=== PATIENT | male | born 1950 | race Caucasian/White ===

== ENCOUNTER → 2016-04-23 | Outpatient (CLI) | payer OTHER ==
[~2016-04-23] MED LIST: ACET-1256 PO; ACET325T96 PO; ADVIN50/60 INH; ALBUAER2 INH; ALLO100T PO; ALUMSUS2 PEG; ALUMSUS2 PO; AMLO-114 PO; ARTISOL8 OP; ASCO1CAP3 PO; ASCO500C43; ASPI81TA28 PO; ATOR-54 PO; CARV6.252 PO; CEFE1INJ2 IV; FENT50DI19 TD; FERR325T5 PO; FRS/40 PO; GABA-112 PO; GABA-113 PO; IPRA1AER2 INH; ISOS60TA2 PO; LORA-741 PO; LOSA1TAB PO; MOML PO; MULT-116; MULTTAB PO; OXYC10SO; OXYC10SO PO; POTA10CA28 PO; PRLSR20 PO; PRNJ PO; RANI150T3 PO; RBTUDL5 PO; RIVA1TAB4 PO; ROBITUSSIN DM PO; SERT-234 PO; SODIENE PR; SULF800T23 PO; TOPI100T20 PO; VITACAP26; [UNRECOGNIZED DRUG - CODE] PO; [UNRECOGNIZED DRUG - CODE] PO; dulcolax supp RE
[2016-04-23 08:53] LABS: BLOOD UREA NITROGEN 17 mg/dl (7-18)
== END ==
LOC: C.LABCC 08:28
PROVIDERS: ATTEND Internal Medicine
DX: L08.9 Local infection of the skin and subcutaneous tissue, unspecified (principal)

== ENCOUNTER → 2016-04-30 | Outpatient (CLI) | payer OTHER ==
[2016-04-30 11:08] LABS: BLOOD UREA NITROGEN 16 mg/dl (7-18)
== END ==
LOC: C.LABCC 10:20
PROVIDERS: ATTEND Internal Medicine Interventional Cardiology
DX: Z01.818 Encounter for other preprocedural examination (principal)

== ENCOUNTER → 2016-05-08 | Outpatient (CLI) | payer OTHER ==
[~2016-05-08] MED LIST changes: +OPTIRAY 320 IV PRN
--- NOTE | 2016-05-08 11:15 | DIAGNOSTIC IMAGING REPORT ---
CT ANGIOGRAM OF THE ABDOMEN AND PELVIS WITH BILATERAL LOWER EXTREMITY RUNOFF CLINICAL HISTORY: Right lower extremity arterial occlusion. COMPARISON STUDY: Abdominal CT dated 08/12/2009. TECHNIQUE: Following the IV administration of 119 cc of Optiray 320, CT angiogram of the abdomen and pelvis with bilateral lower externally runoff was performed from the lung bases to the feet. Images are reviewed in the axial, sagittal, and coronal planes. 3-D MIPS images are created and assessed. IV contrast was administered without complication. CT DOSE: 2760.74 mGy.cm FINDINGS: Lower chest: The patient is status post midline sternotomy. The heart is enlarged and without pericardial effusion. The coronary arteries are densely calcified. Pacemaker leads are noted. Emphysema is noted. There is elevation of left hemidiaphragm with associated atelectasis. No airspace consolidation or pleural effusion is seen. Liver: The contrast-enhanced liver is normal in size, contour, and attenuation. An 11 mm cyst is incidentally noted in the left lobe. There is no intrahepatic or ductal dilatation. The hepatic veins and portal veins are patent. Gallbladder: Unremarkable. Spleen: Normal in size and attenuation noting heterogeneous arterial phase enhancement. Pancreas: The pancreas is atrophic and grossly unremarkable. A coarse calcification is incidentally noted in the uncinate process. Adrenal glands: Unremarkable. Kidneys: The contrast enhanced kidneys demonstrate cortical atrophy and are without hydronephrosis. The kidneys enhance symmetrically. Foci of cortical scarring are present in both kidneys. Abdominal aorta and iliac arteries: There is advanced atherosclerotic calcification with extensive soft plaque seen throughout the abdominal aorta and iliac arteries. The abdominal aorta is normal in caliber and patent. No aortic dissection is seen. There is mild aneurysmal dilatation of the left common iliac artery which measures up to 2.4 cm. There is a left internal iliac artery aneurysm which measures up to 1.8 cm. There is thrombosis of the distal left internal iliac artery. There is mild aneurysmal dilatation of the right common iliac artery which measures up to 1.7 cm. The common iliac arteries and external iliac arteries are patent. Focal dissection is questioned within the left external iliac artery on axial image #367. Major branches of the abdominal aorta: The celiac trunk, superior mesenteric, and inferior mesenteric arteries are widely patent. Hepatic arterial anatomy is conventional. The splenic artery is patent. There are single bilateral renal arteries which appear patent. Right lower extremity runoff: The right common femoral artery is patent, as is the right profunda femoris artery. There is complete thrombosis of the right superficial femoral artery beginning at the common femoral artery bifurcation. A stent in the distal right superficial femoral artery is thrombosed. There is reconstitution identified in the very distal aspect of the superficial femoral artery seen on image #814. The popliteal artery is patent, with focal high-grade stenosis with only trace/thready flow seen in the popliteal artery on image #824. The tibioperoneal trunk is patent. The arteries of the calf are diminutive and show advanced atherosclerotic irregularity. The peroneal artery is patent to the ankle. There is flow throughout the majority of the posterior tibial artery which is occluded just above the ankle, best seen on axial image #1166. There is thready flow within the proximal anterior tibial artery to level of the mid calf. The majority of the mid to distal anterior tibial artery is occluded, with reconstitution just above the ankle joint as seen on image #1157. There is occlusion of the dorsalis pedis artery, best seen on image #[id number] Left lower extremity runoff: There is advanced atherosclerotic plaque and calcification identified in the arteries of the left lower extremity. The left common femoral artery is patent, as is the left profunda femoris artery. There is complete thrombosis of the left superficial femoral artery originating at the common femoral artery bifurcation. There is a short segment reconstitution in the distal superficial femoral artery above the knee extending 4.5 cm, best seen on axial image #794. There is thrombosis of the left popliteal artery. Trace flow is seen within the tibioperoneal trunk within the diminutive anterior and posterior tibial arteries in the upper calf. The peroneal artery is occluded. Bowel: The small bowel and colon are normal in course and caliber. There is moderate colonic fecal retention. The appendix is well-visualized and normal. Peritoneum: There is no intraperitoneal free air or abdominal ascites. Lymphadenopathy: None. Pelvic viscera: The prostate gland is surgically absent. The bladder wall appears thickened and trabeculated, likely representing the sequelae of chronic outlet obstruction. Small bladder diverticula are observed. Numerous surgical clips are present in the pelvis. There is a small fat-containing left inguinal hernia. Skeletal structures: The skeletal structures are osteopenic. There is moderate lumbosacral spondylosis and scoliosis. There is evidence of previous laminectomy in the lower lumbar spine. Advanced arthritic change is present in the hips. There are healed bilateral pubic ring fractures. No lytic or blastic bony lesions are seen. There is evidence of below-knee amputation in the left leg. Lower extremity soft tissues: There has been [id number] amputation of left lower extremity. There is diffuse soft tissue edema with dermal thickening seen throughout the right lower extremity below the knee as well in the distal left thigh and remaining left upper calf. There is atrophy of the lower extremity muscular bilaterally, left greater than right. IMPRESSION: 1. Cardiomegaly and emphysema. 2. Advanced atherosclerotic disease is identified and there is been a below-knee amputation of the left leg. 3. There are small aneurysms of the common iliac arteries bilaterally as well as the left internal iliac artery. 4. Suspect focal dissection within the left external iliac artery. 5. There is complete thrombosis throughout the majority of the left superficial femoral artery with reconstitution distally. There is also thrombosis of the left popliteal artery. See above discussion for detailed findings. 6. There is complete thrombosis throughout the majority of the right superficial femoral artery and a distal right superficial femoral artery stent. 7. There is reconstitution in the distal right superficial femoral artery/popliteal artery. Focal high-grade stenosis with thready flow is seen within the right popliteal artery. See above for details. 8. There is thrombosis of the distal right posterior tibial artery above the ankle. 9. There is a long segment of thrombosis throughout the mid to distal anterior tibial artery with reconstitution above the ankle. There is also thrombosis of the right results. Surgery. 10. Subcutaneous soft tissue edema and dermal thickening is present throughout both legs. Clinical correlation will be required. 11. The prostate gland is surgically absent. The appearance of the bladder suggests the sequelae of chronic outlet obstruction. Clinical correlation will be required. 12. Additional changes as above. Electronically signed by: Boris Vidales M.D. 05/08/2016 11:14 AM Dictated Date/Time: 05/08/2016 10:51 AM
== END ==
LOC: C.CTS 09:28
PROVIDERS: ATTEND Internal Medicine Interventional Cardiology
DX: I74.3 Embolism and thrombosis of arteries of the lower extremities (principal); Z89.512 Acquired absence of left leg below knee; I51.7 Cardiomegaly; J43.9 Emphysema, unspecified

== ENCOUNTER → 2016-05-18 | Outpatient (CLI) | payer OTHER ==
[~2016-05-18] MED LIST changes: -CEFE1INJ2 IV; -OPTIRAY 320 IV PRN
[2016-05-18 09:41] LABS: BLOOD UREA NITROGEN 16 mg/dl (7-18); BUN/CREATININE RATIO 11.1 (10-20); CALCIUM 8.5 mg/dl (8.5-10.1); CARBON DIOXIDE 26 mmol/L (21-32); CHLORIDE 109 mmol/L (98-107); GLUCOSE 96 mg/dl (70-99); POTASSIUM 3.8 mmol/L (3.5-5.1); SODIUM 144 mmol/L (136-145)
== END ==
LOC: C.LABCC 09:04
PROVIDERS: ATTEND Internal Medicine
DX: I50.9 Heart failure, unspecified (principal); R05 Cough

== ENCOUNTER → 2016-05-27 | Outpatient (CLI) | payer OTHER ==
[2016-05-27 08:53] LABS: URINE APPEARANCE CLEAR (CLEAR); URINE COLOR DK YELLOW; URINE NITRITE NEG (NEG); URINE SPECIFIC GRAVITY 1.024 (1.000-1.030); UROBILINOGEN POS (NEG)
[2016-05-27 08:55] LABS: MANUAL MICROSCOPIC REQUIRED? NO; REVIEW REQ? NO
[2016-05-27 08:57] LABS: URINE BILIRUBIN NEG (NEG)
== END ==
LOC: C.LABCC 08:02
PROVIDERS: ATTEND Internal Medicine
DX: R53.83 Other fatigue (principal)

== ENCOUNTER → 2016-06-22 | Outpatient (CLI) | payer OTHER ==
[2016-06-22 10:39] LABS: HEMATOCRIT 37.4 % (42-52); MEAN CELL VOLUME 102.2 fL (80-100); MEAN CORPUSCULAR HEMOGLOBIN 32.8 pg (25-34); MEAN CORPUSCULAR HGB CONC 32.1 g/dl (32-36); MEAN PLATELET VOLUME 9.7 fL (7.4-10.4); PLATELET COUNT 180 K/uL (130-400); RED BLOOD COUNT 3.66 M/uL (4.7-6.1); WHITE BLOOD COUNT 7.29 K/uL (4.8-10.8)
[2016-06-22 10:47] LABS: FERRITIN 216.6 ng/ml (8.0-388.0)
== END ==
LOC: C.LABCC 08:56
PROVIDERS: ATTEND Internal Medicine
DX: D64.9 Anemia, unspecified (principal); Z79.899 Other long term (current) drug therapy

== ENCOUNTER 2016-07-24 16:23 | Emergency (ER) | payer OTHER ==
[~2016-07-24] VITALS: Ht 193 cm; Wt 120.9 kg
[~2016-07-24 16:23] MED LIST changes: -ACET-1256 PO; -ALUMSUS2 PO; -ASCO1CAP3 PO; -CEFAZOLIN 1000MG/55 ML D5W 55 ML IV SCH; -CEFAZOLIN 1000MG/55 ML D5W IV SCH; -CEFAZOLIN 3000 MG/65 ML D5W IV SCH; -CLC/300 PO; -CRG3125 PO; -DRGTP50 TD; -FENTANYL CITRATE INJ 50 MCG/1 ML 2 ML VIAL IV ONE; -FENTANYL CITRATE INJ 50 MCG/1 ML 2 ML VIAL ONE; -GABA-113 PO; -HEPARIN SOD (PORCINE) 1000 UNIT/ML 10 ML VIAL ONE; -IMIP1INJ5 IV; -IMIP250I IV; -IODIXANOL (VISIPAQUE) 270 MG/ML 150ML FLUSH ONE; -LIDOCAINE HCL 1% 20 ML VIAL SQ ONE; -MIDAZOLAM HCL 1 MG/ML 2ML VIAL IV ONE; -MIDAZOLAM HCL 1 MG/ML 2ML VIAL ONE; -MULT-17 PO; -NSS 1000ML IV SCH; -NURSING VERBAL MED ORDER ONE; -ONDANSETRON INJ 2 MG/ML 2 ML VIAL IV PRN; -OXYCODONE/ACETAMINOPHEN 5-325 TAB PO PRN; -PATIENT'S HEIGHT AND/OR WEIGHT NEEDED SCH; -ROBITUSSIN DM PO; -SIMV40TA2 PO; -SODIUM CHLORIDE 0.9% 1000ML 1,000 ML IV SCH; -SODIUM CHLORIDE 0.9% 1000ML IV SCH; -[UNRECOGNIZED DRUG - CODE] PO; -[UNRECOGNIZED DRUG - CODE] PO
[2016-07-24 16:26] VITALS: TEMP 36.7; Ht 193 cm; Wt 120.9 kg
--- NOTE | 2016-07-24 17:01 | EMERGENCY ROOM VISIT NOTE ---
History Report prepared by Steve: Jasper Wagner Under the Supervision of: Sylvia WirghtO. First contact with patient: 16:44 Chief Complaint: FALL Stated Complaint: FALL History of Present Illness The patient is a 65 year old male who presents to the Emergency Room with complaints of constant lower back pain secondary to a fall that occurred [employer]. He rates his pain a 5/10 in intensity. The patient was discharged from the hospital today after an angiogram procedure. The patient states he was being wheeled out of the ED lobby on his way back to [facility] today when his wheelchair fell backwards and hit the ground. He denies loss of consciousness but states he did hit his head. He also denies headaches, nausea, abdominal pain , or any additional associated symptoms. The patient takes blood thinners as prescribed. Source of History: patient Onset: [employer]OR Position: back (lower) Symptom Intensity: 5/10 Timing: constant Modifying Factors (Relieving): other (None) Associated Symptoms: No LOC, No abdominal pain, No headache, No nausea Review of Systems See above for pertinent positives & negatives. A total of 10 systems reviewed and were otherwise negative. Past Medical & Surgical Medical Problems: (1) Anxiety (2) Atrial fibrillation (3) Atrial flutter (4) Benign hypertension (5) Carcinoma of prostate (6) Chronic congestive heart failure (7) Gastroesophageal reflux disease (8) History of - pulmonary embolus (9) Hyperlipidemia (10) Migraine (11) uti Family History FHx: ischemic heart disease Social History Smoking Status: Former Smoker Alcohol Use: occasionally Drug Use: none Marital Status: Housing Status: lives with significant other Occupation Status: disabled Current/Historical Medications Scheduled Allopurinol (Zyloprim), 100 MG PO DAILY Amlodipine (Norvasc), 10 MG PO DAILY Artificial Tears (Artificial Tears), 1-2 DROPS OP QID Aspirin (Aspirin Ec), 81 MG PO DAILY Atorvastatin (Lipitor), 20 MG PO DAILY Carvedilol (Coreg), 6.25 MG PO BID Fentanyl (Duragesic), 50 MCG TD CQ72HR Ferrous Sulfate (Ferrous Sulfate), 325 MG PO BID Fluticasone Prop/Salmeterol (Advair Diskus 500/50 60 Dose), 1 PUFFS INH BID Furosemide (Lasix), 60 MG PO DAILY Gabapentin (Neurontin), 600 MG PO HS Gabapentin (Neurontin), 200 MG PO DAILY Ipratropium-Albuterol (Combivent Respimat), 1 PUFFS INH QID Isosorbide Mononitrate (Imdur Ext Rel), 60 MG PO QAM Losartan Potassium (Cozaar), 25 MG PO DAILY Potassium Chloride (Micro-K Ext Rel), 20 MEQ PO DAILY Ranitidine Hcl (Zantac), 150 MG PO BID Rivaroxaban (Xarelto), 20 MG PO QPM Rivaroxaban (Xarelto), 1 TAB PO DAILY Sertraline (Zoloft), 200 MG PO DAILY Sodium Phosphate/Biphosphate (Fleet Enema), 1 EA HI DAILY Sulfa/Trimethoprim (Bactrim Ds 800MG/160MG), 1 TAB PO BID Topiramate (Topamax), 100 MG PO BID [dulcolax supp ], RE day three per protoc Scheduled PRN Acetaminophen Tab (Tylenol), 325 MG PO Q6H PRN for Pain Albuterol (Ventolin), 2 PUFFS INH Q2H PRN for SOB/Wheezing Aluminum/Magnesium/Simeth (Maalox Max Susp), 30 ML PEG Q6H PRN for Indigestion Lorazepam (Ativan), 0.25 MG PO BID PRN for Anxiety/Insomnia Magnesium Hydroxide (Milk Of Magnesia), 30 ML PO for Constipation Miscellaneous Medications Ascorbic Acid (Vitamin C 500 mg) Guaifenesin (Robitussin) Multiple Vitamins W/ Minerals (Theragran-M) Oxycodone Oral Soln (Roxicodone Oral Soln), 100 PO Prune Juice (Prune Juice ), 8 OZ PO Allergies Coded Allergies: Neomycin (Verified Allergy, Intermediate, RED, SORE, 07/24/16) Bacitracin (Verified Allergy, Unknown, unknown, 07/24/16) Kiwi (Verified Allergy, Unknown, itchy, 07/24/16) Polymyxin B (Verified Allergy, Unknown, unknown, 07/24/16) Morphine (Verified Adverse Reaction, Intermediate, HALLUCINATION, CONFUSION,AGITATION, 07/24/16) Physical Exam Vital Signs Date Time Temp Pulse Resp B/P Pulse Ox O2 Delivery O2 Flow Rate FiO2 07/24/16 18:53 73 18 138/74 97 Room Air 07/24/16 16:26 36.7 73 18 130/79 96 Room Air Physical Exam GENERAL: alert, well appearing, well nourished, no distress, non-toxic EYE EXAM: normal conjunctiva, PERRL and EOM's grossly intact, vision grossly intact. OROPHARYNX: no exudate, no erythema, lips, buccal mucosa, and tongue normal and mucous membranes are moist NECK: supple, no nuchal rigidity, no adenopathy, non-tender LUNGS: Clear to auscultation. Normal chest wall mechanics HEART: no murmurs, S1 normal and S2 normal ABDOMEN: Dressing over groin consistent with recent procedure, abdomen soft, non -tender, normo-active bowel sounds, no masses, no rebound or guarding. BACK: Back is symmetrical on inspection and there is no deformity, no midline tenderness, no CVA tenderness. SKIN: no rashes and no bruising UPPER EXTREMITIES: Old resolving ecchymotic areas noted to bilateral upper extremities, otherwise normal. LOWER EXTREMITIES: Distal right lower extremity 2+ edema, mild erythema, dressing in place, no obvious drainage, normal pulses. NEURO EXAM: Normal sensorium, no gross weakness. Normal speech, no facial droop. Medical Decision & Procedures ER Provider Diagnostic Interpretation: CT results have been interpreted by the radiologist and reviewed by me. LUMBAR SPINE CT CT DOSE: HISTORY: Pain back pain, trauma TECHNIQUE: Multiaxial CT images of the lumbar spine were performed and reformatted in the sagittal and coronal plane without the use of contrast. COMPARISON: 10/11/2006 FINDINGS: Moderately progressive degenerative change compared to the prior study. No acute compression deformity. Bony mineralization is diminished throughout. Scoliosis is present. IMPRESSION: Degenerative change. Scoliosis. Osteopenia. No acute bony abnormality. Electronically signed by: Shaka Richardson M.D. 07/24/2016 6:02 PM Dictated Date/Time: 07/24/2016 6:[address] DOSE: HISTORY: Trauma trauma, blood thinners TECHNIQUE: Multiaxial CT images of the head were performed without the use of intravenous contrast. Comparison: 06/10/2013 Findings: The paranasal sinuses and mastoid air cells are clear. The calvarium and skull base are intact. The ventricles and sulci are within normal limits. There is no mass, hematoma, midline shift, or acute infarct. Findings of minimal chronic small vessel change and mild age-related atrophy. Impression: No acute intracranial abnormality. Electronically signed by: Shaka Richardson M.D. 07/24/2016 5:57 PM Dictated Date/Time: 07/24/2016 5:[address] DOSE: 3409.97 mGy.cm HISTORY: Pain trauma TECHNIQUE: Multiaxial CT images of the cervical spine were performed and reformatted in the sagittal and coronal plane without the use of contrast. COMPARISON: 07/21/2011 FINDINGS: No fractures. No subluxation. Prevertebral soft tissues and the C1-C2 interval are intact. No pneumothorax. Considerable degenerative and postoperative change throughout the entire cervical region. All findings are similar compared to the prior study. No new or interval finding. No compression deformity. IMPRESSION: No fractures within the cervical spine. Extensive degenerative change as well as findings of old posttraumatic/postoperative change. Electronically signed by: Shaka Richardson M.D. 07/24/2016 5:59 PM Dictated Date/Time: 07/24/2016 5:57 PM Medications Administered Medications (Trade) Dose Ordered Sig/Emily Route Start Time Stop Time Status Last Admin Dose Admin Oxycodone HCl (Roxicodone Immediate Rel Tab) 5 mg NOW STAT PO 07/24/16 18:20 07/24/16 18:21 DC 07/24/16 18:25 5 MG ED Course 1653: The patient was evaluated in room A9. A complete history and physical exam was performed. 180: Ordered Tylenol Tablet 650 mg PO. 1819: Ordered Oxycodone HCL 5 mg PO. 7: I reevaluated the patient. Repeat exam is unchanged. Patient has no new complaints. He denies pain at this time. 1839: Upon reevaluation, the patient is feeling better. I discussed the findings and the treatment plan with the patient. He verbalizes agreement and understanding. He was discharged home. Medical Decision Differential diagnosis: Etiologies such as musculoskeletal, disc herniation, fracture, aortic disease, metastatic disease, cord compression, discitis, infection, renal colic, gastrointestinal, acute exacerbation of chronic back pain, sciatica, cauda equina, as well as others were entertained. Doubt ICH/ SDH. Pt with multiple chronic medical problems. CT's negative. Doubt additional occult traumatic injury despite use of anticoagulation. Repeat exams unchanged. Fall backwards while in wheelchair, not from additional height, no other injury. No LOC. Pt anxious to leave. Discussed sx to watch/return for, risks of injury/bleeding while on anticoagulation and in setting of trauma. Discussed use of meds and continuing recommendations from procedure earlier today. Impression Primary Impression: Fall Additional Impression: Acute exacerbation of chronic low back pain Scribe Attestation The scribe's documentation has been prepared under my direction and personally reviewed by me in its entirety. I confirm that the note above accurately reflects all work, treatment, procedures, and medical decision making performed by me. Departure Information Dispostion Home / Self-Care Referrals [facility] (PCP) Forms HOME CARE DOCUMENTATION FORM, IMPORTANT VISIT INFORMATION Patient Instructions My [facility] Additional Instructions Please continue your regular medicines as prescribed. Please continue the precautions you were given regarding your procedure earlier today. If you have any worsening pain, develop headaches, vomiting, dizziness, vision changes, abdominal pain, bleeding, or you have any other new or concerning symptoms, please return to the emergency room. Problem Qualifiers Primary Impression: Fall Encounter type: initial encounter Qualified Codes: W19.XXXA - Unspecified fall, initial encounter
--- NOTE | 2016-07-24 17:59 | DIAGNOSTIC IMAGING REPORT ---
HEAD CT NONCONTRAST CT DOSE: HISTORY: Trauma trauma, blood thinners TECHNIQUE: Multiaxial CT images of the head were performed without the use of intravenous contrast. Comparison: 06/10/2013 Findings: The paranasal sinuses and mastoid air cells are clear. The calvarium and skull base are intact. The ventricles and sulci are within normal limits. There is no mass, hematoma, midline shift, or acute infarct. Findings of minimal chronic small vessel change and mild age-related atrophy. Impression: No acute intracranial abnormality. Electronically signed by: Shaka Richardson M.D. 07/24/2016 5:57 PM Dictated Date/Time: 07/24/2016 5:56 PM
--- NOTE | 2016-07-24 18:01 | DIAGNOSTIC IMAGING REPORT ---
CERVICAL SPINE CT CT DOSE: 3409.97 mGy.cm HISTORY: Pain trauma TECHNIQUE: Multiaxial CT images of the cervical spine were performed and reformatted in the sagittal and coronal plane without the use of contrast. COMPARISON: 07/21/2011 FINDINGS: No fractures. No subluxation. Prevertebral soft tissues and the C1-C2 interval are intact. No pneumothorax. Considerable degenerative and postoperative change throughout the entire cervical region. All findings are similar compared to the prior study. No new or interval finding. No compression deformity. IMPRESSION: No fractures within the cervical spine. Extensive degenerative change as well as findings of old posttraumatic/postoperative change. Electronically signed by: Shaka Richardson M.D. 07/24/2016 5:59 PM Dictated Date/Time: 07/24/2016 5:57 PM
[2016-07-24] MEDS ORDERED: ACETAMINOPHEN 325 MG TAB PO STA (18:02)
--- NOTE | 2016-07-24 18:04 | DIAGNOSTIC IMAGING REPORT ---
LUMBAR SPINE CT CT DOSE: HISTORY: Pain back pain, trauma TECHNIQUE: Multiaxial CT images of the lumbar spine were performed and reformatted in the sagittal and coronal plane without the use of contrast. COMPARISON: 10/11/2006 FINDINGS: Moderately progressive degenerative change compared to the prior study. No acute compression deformity. Bony mineralization is diminished throughout. Scoliosis is present. IMPRESSION: Degenerative change. Scoliosis. Osteopenia. No acute bony abnormality. Electronically signed by: Shaka Richardson M.D. 07/24/2016 6:02 PM Dictated Date/Time: 07/24/2016 6:00 PM
[2016-07-24] MEDS ORDERED: OXYCODONE HCL SOLN 5 MG/5 ML UDC PO STA (18:15)
[2016-07-24] MEDS ORDERED: OXYCODONE HCL IR 5 MG TAB (IMMEDIATE RELEASE) PO STA (18:20)
[2016-07-24 18:53] VITALS: BP 138/74; PULSE 73; O2SAT 97
[2016-11-13] MEDS ORDERED: ACET-1256 PO (16:00)
[2016-11-13] MEDS ORDERED: ROBITUSSIN DM PO (16:00)
[2016-11-13] MEDS ORDERED: IPRA1AER2 INH (16:05)
[2016-11-13] MEDS ORDERED: [UNRECOGNIZED DRUG - CODE] PO (16:05)
[2016-11-13] MEDS ORDERED: GABA-113 PO (16:05)
[2016-11-13] MEDS ORDERED: ALUMSUS2 PO (16:11)
[2016-11-13] MEDS ORDERED: ASCO1CAP3 PO (16:11)
[2016-11-13] MEDS ORDERED: [UNRECOGNIZED DRUG - CODE] PO (16:11)
[2017-01-20] MEDS ORDERED: IMIP250I IV (14:14)
[2017-01-25] MEDS ORDERED: IMIP1INJ5 IV (07:45)
[2017-02-17] MEDS ORDERED: CLC/300 PO (13:35)
== END 2016-07-24 19:36 | disposition home or self-care (01) ==
LOC: EDBD 16:23 → C.EDA 16:24
DX: M54.5 Low back pain (principal); G89.29 Other chronic pain; W19.XXXA Unspecified fall, initial encounter; Y92.89 Other specified places as the place of occurrence of the external cause; F41.9 Anxiety disorder, unspecified; I48.91 Unspecified atrial fibrillation; I10 Essential (primary) hypertension; Z85.46 Personal history of malignant neoplasm of prostate; I50.9 Heart failure, unspecified; K21.9 Gastro-esophageal reflux disease without esophagitis; Z86.711 Personal history of pulmonary embolism; G43.909 Migraine, unspecified, not intractable, without status migrainosus; E78.5 Hyperlipidemia, unspecified; Z87.440 Personal history of urinary (tract) infections; Z87.891 Personal history of nicotine dependence; Z82.49 Family history of ischemic heart disease and other diseases of the circulatory system; Z79.82 Long term (current) use of aspirin; Z79.01 Long term (current) use of anticoagulants; Z79.899 Other long term (current) drug therapy

== ENCOUNTER → 2016-07-24 | Day surgery (SDC) | payer OTHER ==
[~2016-07-24] VITALS: Ht 190.5 cm; Wt 121.0 kg
[~2016-07-24] MED LIST changes: +CEFAZOLIN 1000MG/55 ML D5W 55 ML IV SCH; +CEFAZOLIN 1000MG/55 ML D5W IV SCH; +CEFAZOLIN 3000 MG/65 ML D5W IV SCH; +CLC/300 PO; +CRG3125 PO; +DRGTP50 TD; +FENTANYL CITRATE INJ 50 MCG/1 ML 2 ML VIAL IV ONE; +FENTANYL CITRATE INJ 50 MCG/1 ML 2 ML VIAL ONE; +HEPARIN SOD (PORCINE) 1000 UNIT/ML 10 ML VIAL ONE; +IMIP1INJ5 IV; +IMIP250I IV; +IODIXANOL (VISIPAQUE) 270 MG/ML 150ML FLUSH ONE; +LIDOCAINE HCL 1% 20 ML VIAL SQ ONE; +MIDAZOLAM HCL 1 MG/ML 2ML VIAL IV ONE; +MIDAZOLAM HCL 1 MG/ML 2ML VIAL ONE; +MULT-17 PO; +NSS 1000ML IV SCH; +NURSING VERBAL MED ORDER ONE; +ONDANSETRON INJ 2 MG/ML 2 ML VIAL IV PRN; +OXYCODONE/ACETAMINOPHEN 5-325 TAB PO PRN; +PATIENT'S HEIGHT AND/OR WEIGHT NEEDED SCH; +SIMV40TA2 PO; +SODIUM CHLORIDE 0.9% 1000ML 1,000 ML IV SCH; +SODIUM CHLORIDE 0.9% 1000ML IV SCH
--- NOTE | 2016-07-24 06:25 | History and Physical ---
History & Physical Date Jul 24, 2016. Chief Complaint Nonhealing ulcer right leg History of Present Illness The patient is a 65 year old male with peripheral arterial disease in his right lower extremity along with a slow healing venous ulceration of his lower extremity. The patient is unsure of the length of time that his ulcer has been present. He states that it has been healing, but very, very slowly. He states he has been seen at [facility] for wound care and that they are having him put a chemical debridement ointment on top and dress it on a daily basis. He states that he sometimes does bump his foot and toes on objects, as he is wheeling himself around in his wheelchair which caused a small bruises and such on his foot; however, he denies any rest pain or ulcerations on his toes or feet. He did have an ultrasound of his right lower extremity ordered by Dr. Jefferson, which demonstrated unobtainable ABIs in the right leg and a CTA which demonstrates a long occlusion of his right lower extremity SFA. CTA also demonstrates proximal iliac stenosis and reconstitution of his distal SFA of the large collaterals. Allergies Coded Allergies: Neomycin (Verified Allergy, Intermediate, RED, SORE, 07/24/16) Bacitracin (Verified Allergy, Unknown, unknown, 07/24/16) Kiwi (Verified Allergy, Unknown, itchy, 07/24/16) Polymyxin B (Verified Allergy, Unknown, unknown, 07/24/16) Morphine (Verified Adverse Reaction, Intermediate, HALLUCINATION, CONFUSION,AGITATION, 07/24/16) Home Medications Scheduled Allopurinol (Zyloprim), 100 MG PO DAILY Amlodipine (Norvasc), 10 MG PO DAILY Artificial Tears (Artificial Tears), 1-2 DROPS OP QID Aspirin (Aspirin Ec), 81 MG PO DAILY Atorvastatin (Lipitor), 20 MG PO DAILY Carvedilol (Coreg), 6.25 MG PO BID Fentanyl (Duragesic), 50 MCG TD [id number] Ferrous Sulfate (Ferrous Sulfate), 325 MG PO BID Fluticasone Prop/Salmeterol (Advair Diskus 500/50 60 Dose), 1 PUFFS INH BID Furosemide (Lasix), 60 MG PO DAILY Gabapentin (Neurontin), 600 MG PO HS Gabapentin (Neurontin), 200 MG PO DAILY Ipratropium-Albuterol (Combivent Respimat), 1 PUFFS INH QID Isosorbide Mononitrate (Imdur Ext Rel), 60 MG PO QAM Losartan Potassium (Cozaar), 25 MG PO DAILY Potassium Chloride (Micro-K Ext Rel), 20 MEQ PO DAILY Ranitidine Hcl (Zantac), 150 MG PO BID Rivaroxaban (Xarelto), 20 MG PO QPM Rivaroxaban (Xarelto), 1 TAB PO DAILY Sertraline (Zoloft), 200 MG PO DAILY Sodium Phosphate/Biphosphate (Fleet Enema), 1 EA AL DAILY Sulfa/Trimethoprim (Bactrim Ds 800MG/160MG), 1 TAB PO BID Topiramate (Topamax), 100 MG PO BID [dulcolax supp ], RE day three per protoc Scheduled PRN Acetaminophen Tab (Tylenol), 325 MG PO Q6H PRN for Pain Albuterol (Ventolin), 2 PUFFS INH Q2H PRN for SOB/Wheezing Aluminum/Magnesium/Simeth (Maalox Max Susp), 30 ML PEG Q6H PRN for Indigestion Lorazepam (Ativan), 0.25 MG PO BID PRN for Anxiety/Insomnia Magnesium Hydroxide (Milk Of Magnesia), 30 ML PO for Constipation Miscellaneous Medications Ascorbic Acid (Vitamin C 500 mg) Guaifenesin (Robitussin) Multiple Vitamins W/ Minerals (Theragran-M) Oxycodone Oral Soln (Roxicodone Oral Soln), 100 PO Prune Juice (Prune Juice ), 8 OZ PO Problem List Medical Problems: (1) Anxiety (2) Atrial fibrillation (3) Atrial flutter (4) Benign hypertension (5) Carcinoma of prostate (6) Chronic congestive heart failure (7) Gastroesophageal reflux disease (8) History of - pulmonary embolus (9) Hyperlipidemia (10) Migraine (11) uti Surgical / Medical History Hx Cardiac Surgery: Yes (CABG - 3 vessel ) Hx Abdominal Surgery: Yes (Hernia Repair) Hx Cancer Surgery: Yes (prostate) Hx Thoracic Surgery: No Hx Orthopedic: Yes (Left BKA) Hx Urinary Tract Surgery: Yes (Prostate) Past Medical/Surgical History: COPD, Heart Disease, High Cholesterol Family History FHx: ischemic heart disease Social History Smoking Status: Current Every Day Smoker Hx Tobacco Use In Past Year?: Yes (cigarettes, 1 ppd) Hx Alcohol Use - Type & Amnt: No Hx Substance Use -Type & Amnt: No Review of Systems Constitutional: No chills, No diaphoresis, No fatigue, No fever, No malaise, No problem reported, No sweats, No weakness, No weight gain, No weight loss Respiratory: No VILLEDA, No PND, No cough, No cyanosis, No dyspnea, No hemoptysis, No orthopnea, No problem reported, No short of breath, No sputum production, No stridor, No wheezing Cardiovascular: No chest pain, No chest pressure, No chest tightness, No cyanosis, No diaphoresis, No edema, No intermittent claudication, No lightheadedness, No mumur, No orthopnea, No palpitations, No paroxysmal nocturnal dyspnea, No problem reported, No syncope Gastrointestinal: No abdominal pain, No anorexia, No appetite changes, No belching, No constipation, No diarrhea, No dysphagia, No flatulence, No food intolerance, No heartburn, No hematemesis, No hematochezia, No hemorrhoids, No indigestion, No nausea, No problem reported, No rectal bleeding, No stool changes, No vomiting Genitourinary - Male: No difficulty urinating, No hematuria, No impotence, No penile discharge, No penile itching, No problem reported, No rash, No testicular pain, No testicular swelling Musculoskeletal: + muscle pain, No back pain, No gout, No joint pain, No joint swelling, No muscle stiffness, No muscle weakness, No neck pain, No problem reported Neurologic: No LOC, No dizziness, No headache, No lethargy, No memory loss, No numbness, No paresthesia, No pre-existing deficit, No problem reported, No seizures, No tics, No tingling, No tremors, No vertigo, No weakness Psychiatric: No alcohol abuse, No anxiety, No auditory hallucinations, No depression, No drug abuse, No homicidal ideation, No mood changes, No problem reported, No suicidal ideation, No visual hallucinations Physical Exam Constitutional: Level of Distress: NAD Ambulation: ambulating normally Psychiatric: Mental Status: active & alert, normal mood, normal affect Orientation: oriented except where noted, to time, to place, to person Memory: recent memory normal, remote memory normal Neck: supple Lungs: Auscultation: breath sounds normal Cardiovascular: Heart Auscultation: RRR Abdomen: Inspection & Palpation: soft, non-distended Musculoskeletal: normal, normal strength (5/5 throughout), normal tone Extremities: Upper Right: no cyanosis, no edema, no varicosities, no palpable cord, no clubbing, no ulcers, no mottling Upper Left: pertinent finding (BKA) Lower Right: no cyanosis, no edema, no varicosities, no palpable cord, no clubbing, no ulcers, no mottling Lower Left: edema, ulcers Neurologic: Cranial Nerves: grossly intact Sensation: grossly intact Assessment and Plan Imp: Right iliac artery stenosis RSFAO Plan: Patient is admitted for arteriography with possible intervention. I have discussed the risks options and benefits of the procedure with the patient. The patient understands the risks options and benefits and agrees to the procedure.
[2016-07-24 06:34] VITALS: BP 87/56; PULSE 74; TEMP 36.6; O2SAT 95; Ht 190.5 cm; Wt 121.0 kg
--- NOTE | 2016-07-24 07:37 | History & Physical Bridge Note ---
H&P Re-Evaluation Bridge Note: I have examined the patient, reviewed the History & Physical and in the interval since the performance of the History & Physical I have noted the following changes of clinical significance: No changes noted
--- NOTE | 2016-07-24 07:37 | Procedure Note ---
Pre-Mod Sedation Assessment General Date of Moderate Sedation: Jul 24, 2016. Vital Signs: Vital Signs Past 12 Hours Date Time Temp Pulse Resp B/P Pulse Ox O2 Delivery O2 Flow Rate FiO2 07/24/16 06:34 36.6 74 20 87/56 95 Room Air Pre-Sedation Airway Assessment Short Thick Neck: No Hx of Sleep Apnea: No Smoking Status: Current Every Day Smoker Mallampati Classification: Class I ASA Classification: Class II Notes The planned sedation has been discussed with the patient and consent obtained. I have identified the patient, determined the appropriateness of sedation and have assessed the patient immediately prior to the procedure. All medicine(s) and interventions are by my order.
[2016-07-24 08:26] LABS: CREATININE 1.3 mg/dl (0.60-1.40)
--- NOTE | 2016-07-24 10:58 | [facility] Post Operative Brief Note ---
Immediate Operative Summary Operative Date Jul 24, 2016. Pre-Operative Diagnosis Nonhealing Ulcer Right Leg Post-Operative Diagnosis Same Procedure(s) Performed Right Lower Extremity Angiogram, Moderate Sedation from 1019- [address] Gomez Assembler Flexible Leads Surgeon(s) None Estimated Blood Loss 5 Findings Mild right common iliac artery occlusion, moderate stenosis right PFA, totally occluded sfa with reconstitution of the distal popliteal artery Specimens none Anesthesia Local with conscious sedation Complication(s) None Disposition
[2016-07-24 11:05] VITALS: BP 86/61; PULSE 65; TEMP 36.6; O2SAT 95
--- NOTE | 2016-07-24 11:05 | Discharge Instructions ---
Discharge Instructions Date of Service Jul 24, 2016. Visit Reason for Visit: Peripheral Artery Disease W/Rle Ulcer Discharge Discharge Diagnosis / Problem: Left superficial femoral artery occlusion with non healing ulcer Discharge Goals Goal(s): Therapeutic intervention Activity Recommendations Activity Limitations: per Instructions/Follow-up section Anesthesia . Post Anesthesia Instructions: If you have had General Anesthesia or IV Sedation: * Do not drive today. * Resume driving when surgeon permits. * Do not make important decisions or sign legal documents today. * Call surgeon for: 1. Temperature elevations greater than 101 degrees F. 2. Uncontrollable pain. 3. Excessive bleeding. 4. Persistent nausea and vomiting. 5. Medication intolerance (nausea, vomiting or rash). * For nausea and vomiting use only clear liquids such as: tea, soda, bouillon until nausea subsides, then gradually increase diet as tolerated. * If you have any concerns or questions, call your surgeon's office. If physician is unavailable and it is an emergency, call 911 or go to the nearest emergency room. . Instructions / Follow-Up Instructions / Follow-Up SPECIAL CARE INSTRUCTIONS: Medications: * Continue to take your medications as directed. If you have been given a prescription for Plavix, please fill it immediately and take as directed. Incision Care: * Your puncture site may have some bruising and minor swelling for about one week. * You will have a small dressing covering your puncture site. You may remove the dressing after 24 hours and shower. You may let the warm soapy water run over it, but be sure to dry the puncture site well and keep it dry. * DO NOT IMMERSE THE INCISION IN A TUB/POOL/etc. UNTIL HEALED. * Puncture sites should be kept covered with a band-aid until it begins to heal. Restrictions: * Depending on whether you leg or arm was punctured to access the arteries, you will be required to lay flat, hold your arm still, or both, for about 4 hours after the procedure to prevent bleeding. * Limit your activity for the first 48 hours. You may walk and go up and down steps. Avoid excessive bending or movement at the puncture site. Possible Complications: * Excessive Swelling - after blood flow is improved you may notice increased swelling in the lower legs. This is a normal response. This usually depends on the amount of blockages in the leg, how long they have been there prior to your procedure and how much blood flow was restored. Elevating your legs will help to improve this. Please notify our office ([phone] ) if the swelling does not go away after lying in bed overnight. * Infection/Drainage/Bleeding - Drainage or bleeding from the puncture site should be minimal. If you have excessive bleeding or drainage, call our office ([phone]) right away. * Pain - You may experience some mild pain or soreness at your puncture site. If your pain does not improve, please contact our office ([phone]). Call your doctor and seek emergent treatment if you develop: * Temperature above 101 degrees * Any fever or chills * Any redness or purulent drainage from the puncture site * Any new dusky/blue colored toes or feet with coolness or sharp or aching pain. SKIN IRRITATION: * You may experience some redness and/or swelling in the area where radiation was administered. If any skin irritation occurs, please contact your family physician. FOLLOW UP VISIT: Keep any scheduled doctor appointments. Diet Recommendations Recommended Home Diet: resume previous diet Procedures Procedures Performed: Right Lower Extremity Angiogram, Moderate Sedation from 1019- 1056 Pending Studies Studies pending at discharge: no Medical Emergencies . Who to Call and When: Medical Emergencies: If at any time you feel your situation is an emergency, please call 911 immediately. . Non-Emergent Contact Non-Emergency issues call your: Surgeon . . "Provider Documentation" section prepared by David Gomez. .
--- NOTE | 2016-07-24 11:09 | Procedure Note ---
Post-Moderate Sedation Plan General Date of Moderate Sedation Jul 24, 2016. Vital Signs: Vital Signs Past 12 Hours Date Time Temp Pulse Resp B/P Pulse Ox O2 Delivery O2 Flow Rate FiO2 07/24/16 06:34 36.6 74 20 87/56 95 Room Air Review - Discharge Plan Post Moderate Sedation Plan: On clinical assessment, the patient appears to have tolerated the conscious sedation without complications. Patient is recovering as anticipated. Patient will continue to be monitored by nursing and may be discharged when conscious sedation discharge criteria are met.
[2016-07-24 12:00] VITALS: BP 89/46; PULSE 56; TEMP 36.6; O2SAT 97
[2016-07-24 13:04] VITALS: BP 92/61; PULSE 56; O2SAT 96
[2016-07-24 14:05] VITALS: BP 100/52; PULSE 62; TEMP 36.5; O2SAT 96
[2016-07-24 14:45] VITALS: BP 100/51; PULSE 71; TEMP 36.6; O2SAT 94
--- NOTE | 2016-08-05 13:48 | DIAGNOSTIC IMAGING REPORT ---
DATE OF PROCEDURE: 07/24/2016 PREOPERATIVE DIAGNOSIS: Nonhealing ulcer, right lower extremity. POSTOPERATIVE DIAGNOSIS: Same. PROCEDURES: 1. Right lower extremity arteriography. 2. Conscious sedation, 37 minutes. SURGEON: Dr. David Gomez. ANESTHETIC: Local with conscious sedation. PROCEDURE INDICATIONS: The patient is a 65-year-old gentleman with nonhealing ulcer in his right lower extremity. Arteriography was recommended. He understood the risks, options and benefits and agreed to have this procedure. The patient was taken to the angiogram suite and placed in the supine position. After groins were prepped and draped in a sterile manner, local anesthetic was administered. Percutaneous puncture was made of the right common femoral artery. An 0.035 wire was passed centrally. Pigtail was then inserted and passed up into the distal aorta. We are hoping that he had an iliac artery stenosis, which was suggested on CT angio. We opened to dilate this to increase the flow to his right foot. Arteriography was then performed through the pigtail. The common iliac arteries on both sides were patent. There was a mild to moderate 30%-50% narrowing of the right common iliac artery. Left side, this common iliac was slightly aneurysmal. No stenosis was noted down through the common femoral artery on the left side. Right side, the external iliac was patent. The superficial femoral artery was occluded at its origin. There was a 70%-80% narrowing of the profunda femoral artery takeoff on the right side. As mentioned, the superficial femoral artery was occluded and reconstitutes popliteal artery just at the tibial plateau. Below there, he has an occluded anterior tibial. The peroneal and posterior tibial arteries were seen coursing down to the foot. Peroneal gives a branch to the dorsalis pedis artery and refills that. The posterior tibial crossed the ankle and feeds the foot up. At that point, no intervention was entertained. The sheath was then pulled and pressure was applied. Adequate hemostasis was obtained. Sterile dressings were applied to the wound. The patient left the angiogram suite in satisfactory condition. He tolerated the procedure well.
== END | disposition home or self-care (01) ==
LOC: C.ACU 05:44
PROVIDERS: ATTEND Surgery Vascular Surgery
DX: I77.1 Stricture of artery (principal); L97.909 Non-pressure chronic ulcer of unspecified part of unspecified lower leg with unspecified severity; F17.210 Nicotine dependence, cigarettes, uncomplicated; I48.91 Unspecified atrial fibrillation; I48.92 Unspecified atrial flutter; I11.0 Hypertensive heart disease with heart failure; I50.9 Heart failure, unspecified; E78.5 Hyperlipidemia, unspecified; K21.9 Gastro-esophageal reflux disease without esophagitis; F41.9 Anxiety disorder, unspecified; Z86.711 Personal history of pulmonary embolism; J44.9 Chronic obstructive pulmonary disease, unspecified; M54.5 Low back pain; G89.29 Other chronic pain; W19.XXXA Unspecified fall, initial encounter; Y92.89 Other specified places as the place of occurrence of the external cause; Z85.46 Personal history of malignant neoplasm of prostate; G43.909 Migraine, unspecified, not intractable, without status migrainosus; Z87.440 Personal history of urinary (tract) infections; Z82.49 Family history of ischemic heart disease and other diseases of the circulatory system; Z79.82 Long term (current) use of aspirin; Z79.01 Long term (current) use of anticoagulants; Z79.899 Other long term (current) drug therapy

== ENCOUNTER → 2016-09-23 | Outpatient (CLI) | payer OTHER ==
[~2016-09-23] MED LIST changes: +ACET-1256 PO; +ALUMSUS2 PO; +ASCO1CAP3 PO; +CLC/300 PO; +CRG3125 PO; +DRGTP50 TD; +GABA-113 PO; +IMIP1INJ5 IV; +IMIP250I IV; +MULT-17 PO; -MULTTAB PO; -OXYC10SO; -PRLSR20 PO; +ROBITUSSIN DM PO; +SIMV40TA2 PO; -VITACAP26; +[UNRECOGNIZED DRUG - CODE] PO; +[UNRECOGNIZED DRUG - CODE] PO
--- NOTE | 2016-09-23 10:53 | DIAGNOSTIC IMAGING REPORT ---
CT LUNG SCREENING, LOW DOSE WITH COMPUTER-AIDED DETECTION (CAD) CLINICAL HISTORY: Lung cancer screening. Smoking history. COMPARISON STUDY: Chest CT dated 08/20/2015 and 12/13/2012. CT DOSE: 94.04 mGy.cm TECHNIQUE: Low-dose helical CT was acquired without intravenous contrast from lung apices to bases and reconstructed at 2.5 mm every 2 mm. CAD was utilized for this study. FINDINGS: Thyroid: Imaged portions of the thyroid gland are normal in appearance. Thoracic aorta: There is atherosclerotic calcification of the thoracic aorta, which is normal in caliber and demonstrates standard 3 vessel arch anatomy. Heart: The patient is status post midline sternotomy. A cardiac AICD is noted in the left chest wall. The lead terminates in the right ventricle. The heart is enlarged and without pericardial effusion. The coronary arteries are densely calcified. Lungs and pleural spaces: Emphysematous change is observed. Diffuse subpleural reticulation is noted. Loculated fluid is again seen along the left major fissure. No airspace consolidation is identified typical for pneumonia. A calcified granuloma is noted at the right lung base. No concerning pulmonary lesion is identified. The trachea and central airways are clear. Mediastinum: There is no mediastinal lymphadenopathy. Beth: Not well assessed without IV contrast. Axilla: There is no axillary lymphadenopathy. Surgical clips are seen in the right axilla. Upper abdomen: The partially visualized kidneys and pancreas are atrophic. Partially visualized upper abdominal viscera is within normal limits. Skeletal structures: The skeletal structures are osteopenic. There are no lytic or blastic osseous lesions. The left ninth posterior rib is surgically absent, as is the left transverse process of T9. There are healed left-sided rib fractures. A mild chronic compression deformity of T9 is similar to previous. 13th ribs are incidentally noted. Degenerative changes noted in the thoracic spine and shoulders. IMPRESSION: 1. Emphysema. 2. No concerning pulmonary lesion is seen. 3. Cardiomegaly and AICD. 4. Posttraumatic change involving T9 and the left posterior ninth rib is similar to previous. 5. Loculated fluid is again seen along the left major fissure. 6. Additional findings as above. CAD FINDINGS: Overall Lung RADS Category: 1 Lung RADS Management Recommendation: Lung-RADS 1: Continue annual screening in 12 months. Lung RADS Follow Up Date: 2017-09-23 Lung RADS Nodule ID: Electronically signed by: Boris Vidales M.D. 09/23/2016 10:52 AM Dictated Date/Time: 09/23/2016 10:40 AM
--- NOTE | 2016-10-01 13:09 | CODING QUERY MEDICAL NECESSITY ---
SUPPORTING DIAGNOSIS NEEDED A supporting diagnosis is required for the test/procedure performed on this patient in order for us to be reimbursed by the patient's insurance. Please provide a supporting diagnosis for the following test/procedure listed below next to the test name along with your signature. *If there is no additional diagnosis for this patient that would support the following test/procedure please document that below next to the test/procedure. Test(s)/Procedure(s) that require a supporting diagnosis: * CT LUNG SCREENING, LOW DOSE DIAGNOSIS: Provider Signature: Date: Thank you Bessy Levy [employer] Once completed, please kindly fax back to [phone] For questions please call [phone]
== END | disposition home or self-care (01) ==
LOC: C.CTS 10:15
PROVIDERS: ATTEND Internal Medicine
DX: J43.9 Emphysema, unspecified (principal); F17.200 Nicotine dependence, unspecified, uncomplicated

== ENCOUNTER → 2016-10-12 | Outpatient (CLI) | payer OTHER ==
[~2016-10-12] MED LIST changes: -CLC/300 PO; -IMIP1INJ5 IV; -IMIP250I IV
[2016-10-12 08:47] LABS: BASO % 0.2 %; BASO ABS # 0.02 K/uL (0-0.2); COMPLETE YES; EOS % 2.7 %; HEMATOCRIT 41.4 % (42-52); IG% 0.2 %; LYMPH % 30.2 %; LYMPH ABS # 2.68 K/uL (1.2-3.4); MEAN CELL VOLUME 105.6 fL (80-100); MEAN CORPUSCULAR HEMOGLOBIN 33.4 pg (25-34); MEAN CORPUSCULAR HGB CONC 31.6 g/dl (32-36); MEAN PLATELET VOLUME 9.9 fL (7.4-10.4); MONO % 7.9 %; NEUT % 58.8 %; PLATELET COUNT 199 K/uL (130-400); RED BLOOD COUNT 3.92 M/uL (4.7-6.1); WHITE BLOOD COUNT 8.86 K/uL (4.8-10.8)
[2016-10-12 08:55] LABS: BLOOD UREA NITROGEN 12 mg/dl (7-18); BUN/CREATININE RATIO 10.2 (10-20); CALCIUM 8.8 mg/dl (8.5-10.1); CARBON DIOXIDE 24 mmol/L (21-32); CHLORIDE 112 mmol/L (98-107); GLUCOSE 100 mg/dl (70-99); POTASSIUM 3.8 mmol/L (3.5-5.1); SODIUM 144 mmol/L (136-145)
[2016-10-12 08:59] LABS: INR 1.2 (0.9-1.1); PARTIAL THROMBOPLASTIN RATIO 1.4; PROTHROMBIN TIME (PATIENT) 12.7 SECONDS (9.0-12.0)
== END ==
LOC: C.LABCC 08:18
PROVIDERS: ATTEND Internal Medicine
DX: Z01.812 Encounter for preprocedural laboratory examination (principal)

== ENCOUNTER → 2016-10-30 | Outpatient (CLI) | payer OTHER | LOC: C.LABCC 07:38 | PROVIDERS: ATTEND Internal Medicine | DX: J02.9 Acute pharyngitis, unspecified (principal) ==

== ENCOUNTER 2016-11-17 08:21 | Inpatient (IN) | payer OTHER ==
--- NOTE | 2016-11-13 16:32 | PAT Medication Instructions ---
Service Date Nov 13, 2016. Current Home Medication List Acetaminophen (Tylenol), 1,000 MG PO BID Acetaminophen Tab (Tylenol), 325 MG PO Q6H PRN for Pain Allopurinol (Zyloprim), 100 MG PO QAM Aluminum/Magnesium/Simeth (Maalox Max Susp), 30 ML PO Q6H PRN for RN Artificial Tears (Artificial Tears), 1-2 DROPS OP QID Ascorbic Acid (Vitamin C), 500 MG PO QAM Aspirin (Aspirin Ec), 81 MG PO QAM Atorvastatin (Lipitor), 20 MG PO HS Carvedilol (Coreg), 1.5 TAB PO BID Fentanyl (Duragesic), 50 MCG TD CQ72HR Ferrous Sulfate (Ferrous Sulfate), 325 MG PO BID Fluticasone Prop/Salmeterol (Advair Diskus 500/50 60 Dose), 1 PUFFS INH BID Furosemide (Lasix), 60 MG PO QAM Gabapentin (Neurontin), 200 MG PO QAM Gabapentin (Neurontin), 600 MG PO HS Guaifenesin (Robitussin), 10 ML PO Q6H PRN for Cough Ipratropium-Albuterol (Combivent Respimat), 1 PUFFS INH Q6H Isosorbide Mononitrate (Imdur Ext Rel), 60 MG PO QAM Lorazepam (Ativan), 0.5 MG PO BID PRN for Anxiety/Insomnia Losartan Potassium (Cozaar), 25 MG PO QAM Magnesium Hydroxide (Milk Of Magnesia), 30 ML PO for Constipation Potassium Chloride (Micro-K Ext Rel), 20 MEQ PO QAM Prune Juice (Prune Juice ), 8 OZ PO Ranitidine Hcl (Zantac), 150 MG PO BID Rivaroxaban (Xarelto), 20 MG PO HS Sertraline (Zoloft), 200 MG PO QAM Sodium Phosphate/Biphosphate (Fleet Enema), 1 EA [place] DAILY Topiramate (Topamax), 100 MG PO BID [Robitussin Dm], 10 ML PO QID [Sulfameth-Tmp], 20 ML PO BID [Therems-M], 1 TAB PO QAM [dulcolax supp ], 1 DOSE RE day three per protoc Medication Instructions For Your Scheduled Surgery - Instructions per surgeon: Rivaroxaban (Xarelto), 20 MG PO HS Aspirin (Aspirin Ec), 81 MG PO QAM - Continue as directed: Fentanyl (Duragesic), 50 MCG TD CQ72HR - Hold the following medications the morning of surgery: Ascorbic Acid (Vitamin C), 500 MG PO QAM Furosemide (Lasix), 60 MG PO QAM Aluminum/Magnesium/Simeth (Maalox Max Susp), 30 ML PO Q6H PRN Losartan Potassium (Cozaar), 25 MG PO QAM Potassium Chloride (Micro-K Ext Rel), 20 MEQ PO QAM Prune Juice (Prune Juice ), 8 OZ PO [Therems-M], 1 TAB PO QAM Magnesium Hydroxide (Milk Of Magnesia), 30 ML PO for Constipation Sodium Phosphate/Biphosphate (Fleet Enema), 1 EA [place] DAILY Guaifenesin (Robitussin), 10 ML PO Q6H PRN for Cough [Robitussin Dm], 10 ML PO QID [dulcolax supp ], 1 DOSE RE day three per protoc - Take the following medications the morning of surgery with a sip of water OTHERWISE NOTHING TO EAT OR DRINK AFTER MIDNIGHT: Topiramate (Topamax), 100 MG PO BID [Sulfameth-Tmp], 20 ML PO BID Ranitidine Hcl (Zantac), 150 MG PO BID Artificial Tears (Artificial Tears), 1-2 DROPS OP QID Carvedilol (Coreg), 1.5 TAB PO BID Ferrous Sulfate (Ferrous Sulfate), 325 MG PO BID Fluticasone Prop/Salmeterol (Advair Diskus 500/50 60 Dose), 1 PUFFS INH BID Acetaminophen (Tylenol), 1,000 MG PO BID (may take if needed up to 4 hours prior to surgery) Acetaminophen Tab (Tylenol), 325 MG PO Q6H PRN for Pain (may take if needed up to 4 hours prior to surgery) Sertraline (Zoloft), 200 MG PO QAM Isosorbide Mononitrate (Imdur Ext Rel), 60 MG PO QAM Allopurinol (Zyloprim), 100 MG PO QAM Gabapentin (Neurontin), 200 MG PO QAM Ipratropium-Albuterol (Combivent Respimat), 1 PUFFS INH Q6H Lorazepam (Ativan), 0.5 MG PO BID PRN for Anxiety/Insomnia - Take the following medications as scheduled the night before surgery: Topiramate (Topamax), 100 MG PO BID [Sulfameth-Tmp], 20 ML PO BID Ranitidine Hcl (Zantac), 150 MG PO BID Artificial Tears (Artificial Tears), 1-2 DROPS OP QID Carvedilol (Coreg), 1.5 TAB PO BID Ferrous Sulfate (Ferrous Sulfate), 325 MG PO BID Fluticasone Prop/Salmeterol (Advair Diskus 500/50 60 Dose), 1 PUFFS INH BID Acetaminophen (Tylenol), 1,000 MG PO BID Acetaminophen Tab (Tylenol), 325 MG PO Q6H PRN for Pain Aluminum/Magnesium/Simeth (Maalox Max Susp), 30 ML PO Q6H PRN Atorvastatin (Lipitor), 20 MG PO HS Gabapentin (Neurontin), 600 MG PO HS Ipratropium-Albuterol (Combivent Respimat), 1 PUFFS INH Q6H Lorazepam (Ativan), 0.5 MG PO BID PRN for Anxiety/Insomnia Magnesium Hydroxide (Milk Of Magnesia), 30 ML PO for Constipation Sodium Phosphate/Biphosphate (Fleet Enema), 1 EA WI DAILY Guaifenesin (Robitussin), 10 ML PO Q6H PRN for Cough [Robitussin Dm], 10 ML PO QID [dulcolax supp ], 1 DOSE RE day three per protoc If you have any questions please call us at [phone] or [phone] or [phone]
[2016-11-17] VITALS (7 sets, daily range): BP systolic 90–122; BP diastolic 61–81; PULSE 70–99; TEMP 36.5–37; O2SAT 92–99; Ht 190.5 cm; Wt 122.0 kg
[~2016-11-17] VITALS: Ht 190.5 cm; Wt 122.0 kg
--- NOTE | 2016-11-17 06:17 | History and Physical ---
History & Physical Date of Service Nov 17, 2016. History & Physical Chief Complaint Nonhealing ulcer right leg History of Present Illness The patient is a 65 year old male with peripheral arterial disease in his right lower extremity along with a slow healing venous ulceration of his lower extremity. The patient is unsure of the length of time that his ulcer has been present. He states that it has been healing, but very, very slowly. He states he has been seen at [facility] for wound care and that they are having him put a chemical debridement ointment on top and dress it on a daily basis. He states that he sometimes does bump his foot and toes on objects, as he is wheeling himself around in his wheelchair which caused a small bruises and such on his foot; however, he denies any rest pain or ulcerations on his toes or feet. He did have an ultrasound of his right lower extremity ordered by Dr. Jefferson, which demonstrated unobtainable ABIs in the right leg and a CTA which demonstrates a long occlusion of his right lower extremity SFA. CTA also demonstrates proximal iliac stenosis and reconstitution of his distal SFA of the large collaterals. Allergies Coded Allergies: Neomycin (Verified Allergy, Intermediate, RED, SORE, 07/24/16) Bacitracin (Verified Allergy, Unknown, unknown, 07/24/16) Kiwi (Verified Allergy, Unknown, itchy, 07/24/16) Polymyxin B (Verified Allergy, Unknown, unknown, 07/24/16) Morphine (Verified Adverse Reaction, Intermediate, HALLUCINATION, CONFUSION,AGITATION, 07/24/16) Home Medications Scheduled Allopurinol (Zyloprim), 100 MG PO DAILY Amlodipine (Norvasc), 10 MG PO DAILY Artificial Tears (Artificial Tears), 1-2 DROPS OP QID Aspirin (Aspirin Ec), 81 MG PO DAILY Atorvastatin (Lipitor), 20 MG PO DAILY Carvedilol (Coreg), 6.25 MG PO BID Fentanyl (Duragesic), 50 MCG TD [id number] Ferrous Sulfate (Ferrous Sulfate), 325 MG PO BID Fluticasone Prop/Salmeterol (Advair Diskus 500/50 60 Dose), 1 PUFFS INH BID Furosemide (Lasix), 60 MG PO DAILY Gabapentin (Neurontin), 600 MG PO HS Gabapentin (Neurontin), 200 MG PO DAILY Ipratropium-Albuterol (Combivent Respimat), 1 PUFFS INH QID Isosorbide Mononitrate (Imdur Ext Rel), 60 MG PO QAM Losartan Potassium (Cozaar), 25 MG PO DAILY Potassium Chloride (Micro-K Ext Rel), 20 MEQ PO DAILY Ranitidine Hcl (Zantac), 150 MG PO BID Rivaroxaban (Xarelto), 20 MG PO QPM Rivaroxaban (Xarelto), 1 TAB PO DAILY Sertraline (Zoloft), 200 MG PO DAILY Sodium Phosphate/Biphosphate (Fleet Enema), 1 EA RI DAILY Sulfa/Trimethoprim (Bactrim Ds 800MG/160MG), 1 TAB PO BID Topiramate (Topamax), 100 MG PO BID [dulcolax supp ], RE day three per protoc Scheduled PRN Acetaminophen Tab (Tylenol), 325 MG PO Q6H PRN for Pain Albuterol (Ventolin), 2 PUFFS INH Q2H PRN for SOB/Wheezing Aluminum/Magnesium/Simeth (Maalox Max Susp), 30 ML PEG Q6H PRN for Indigestion Lorazepam (Ativan), 0.25 MG PO BID PRN for Anxiety/Insomnia Magnesium Hydroxide (Milk Of Magnesia), 30 ML PO for Constipation Miscellaneous Medications Ascorbic Acid (Vitamin C 500 mg) Guaifenesin (Robitussin) Multiple Vitamins W/ Minerals (Theragran-M) Oxycodone Oral Soln (Roxicodone Oral Soln), 100 PO Prune Juice (Prune Juice ), 8 OZ PO Problem List Medical Problems: (1) Anxiety (2) Atrial fibrillation (3) Atrial flutter (4) Benign hypertension (5) Carcinoma of prostate (6) Chronic congestive heart failure (7) Gastroesophageal reflux disease (8) History of - pulmonary embolus (9) Hyperlipidemia (10) Migraine (11) uti Surgical / Medical History Hx Cardiac Surgery: Yes (CABG - 3 vessel ) Hx Abdominal Surgery: Yes (Hernia Repair) Hx Cancer Surgery: Yes (prostate) Hx Thoracic Surgery: No Hx Orthopedic: Yes (Left BKA) Hx Urinary Tract Surgery: Yes (Prostate) Past Medical/Surgical History: COPD, Heart Disease, High Cholesterol Family History FHx: ischemic heart disease Social History Smoking Status: Current Every Day Smoker Hx Tobacco Use In Past Year?: Yes (cigarettes, 1 ppd) Hx Alcohol Use - Type & Amnt: No Hx Substance Use -Type & Amnt: No ROS: Vascular H&P v2 Review of Systems Constitutional: No chills, No diaphoresis, No fever, No malaise, No weakness, No weight gain, No weight loss, No sweats, No fatigue, No problem reported Respiratory: No cough, No cyanosis, No VILLEDA, No hemoptysis, No orthopnea, No PND , No short of breath, No sputum production, No stridor, No wheezing, No dyspnea , No problem reported Cardiovascular: No chest pain, No chest tightness, No chest pressure, No palpitations, No syncope, No diaphoresis, No edema, No intermittent claudication , No orthopnea, No cyanosis, No mumur, No lightheadedness, No paroxysmal nocturnal dyspnea, No problem reported Gastrointestinal: No abdominal pain, No constipation, No diarrhea, No nausea, No vomiting, No anorexia, No appetite changes, No belching, No flatulence, No food intolerance, No hematemesis, No hemorrhoids, No hematochezia, No stool changes, No heartburn, No indigestion, No dysphagia, No rectal bleeding, No problem reported Genitourinary - Male: No impotence, No penile discharge, No penile itching, No rash, No testicular pain, No testicular swelling, No hematuria, No difficulty urinating, No problem reported Musculoskeletal: + muscle pain, No back pain, No gout, No joint pain, No joint swelling, No muscle stiffness, No muscle weakness, No neck pain, No problem reported Neurologic: No dizziness, No weakness, No headache, No lethargy, No numbness, No paresthesia, No pre-existing deficit, No seizures, No tics, No tingling, No tremors, No vertigo, No memory loss, No LOC, No problem reported Psychiatric: No anxiety, No alcohol abuse, No auditory hallucinations, No depression, No drug abuse, No homicidal ideation, No mood changes, No suicidal ideation, No visual hallucinations, No problem reported Physical Ex: Vascular H&P v2 Physical Exam Constitutional: Level of Distress: NAD Ambulation: ambulating normally Psychiatric: Mental Status: active & alert, normal mood, normal affect Orientation: oriented except where noted, to time, to place, to person Memory: recent memory normal, remote memory normal Neck: supple Lungs: Auscultation: breath sounds normal Cardiovascular: Heart Auscultation: RRR Abdomen: Inspection & Palpation: soft, non-distended Musculoskeletal: normal, normal strength (5/5 throughout), normal tone Extremities: Upper Right: no cyanosis, no edema, no varicosities, no palpable cord, no clubbing, no ulcers, no mottling Upper Left: pertinent finding (BKA) Lower Right: no cyanosis, no edema, no varicosities, no palpable cord, no clubbing, no ulcers, no mottling Lower Left: edema, ulcers Neurologic: Cranial Nerves: grossly intact Sensation: grossly intact A&P: Vascular H&P v2 Assessment and Plan Imp: Right iliac artery stenosis RSFAO Plan: Patient is admitted for a right lower extremity profundoplasty with possible iliac stenting. I have discussed the risks options and benefits of the procedure with the patient. The patient understands the risks options and benefits and agrees to the procedure.
[~2016-11-17 08:21] MED LIST changes: -ALBUAER2 INH; -ALUMSUS2 PEG; -AMLO-114 PO; -ASCO500C43; +CEFAZOLIN 1000MG/55 ML D5W IV SCH; +CEFAZOLIN 2000 MG/60 ML D5W 60 ML IV SCH; -CRG3125 PO; -DRGTP50 TD; +LACTATED RINGER'S 1000ML 1,000 ML IV SCH; -MULT-116; -MULT-17 PO; -OXYC10SO PO; -SIMV40TA2 PO; +SODIUM CHLORIDE 0.9% 1000ML 1,000 ML IV SCH; -SULF800T23 PO
[2016-11-17 10:24] LABS: BUN/CREATININE RATIO 9.7 (10-20); CALCIUM 8.6 mg/dl (8.5-10.1); CREATININE 1.2 mg/dl (0.60-1.40); POTASSIUM 3.7 mmol/L (3.5-5.1)
[2016-11-17] MEDS ORDERED: THROMBIN 5000 UNITS KIT ONE (11:10)
[2016-11-17] MEDS ORDERED: BUPIVACAINE/EPINEPHRINE 0.5% MPF 1:200,000 10 ML VIAL ONE ×2 (11:10→11:12)
[2016-11-17] MEDS ORDERED: IODIXANOL (VISIPAQUE) 270 MG/ML 50ML ONE (11:10)
[2016-11-17] MEDS ORDERED: GELATIN SPONGE SZ 100 ONE (11:10)
[2016-11-17] MEDS ORDERED: LIDOCAINE HCL 1% 20 ML VIAL ONE (11:10)
[2016-11-17] MEDS ORDERED: CEFAZOLIN SOD 1 GM VIAL ONE (11:11)
[2016-11-17] MEDS ORDERED: HEPARIN SOD (PORCINE) 1000 UNIT/ML 10 ML VIAL ONE ×2 (11:11→13:20)
[2016-11-17] MEDS ORDERED: LIDOCAINE HCL 2% 2 ML VIAL (20MG/ML) ONE (11:14)
[2016-11-17] MEDS ORDERED: LARYING-O-JET KIT (LTA) ONE ×2 (11:14)
[2016-11-17] MEDS ORDERED: PROPOFOL IV EMULSION 10 MG/ML 20 ML VIAL IV ONE (11:14)
[2016-11-17] MEDS ORDERED: FENTANYL CITRATE INJ 50 MCG/1 ML 2 ML VIAL ONE (11:14)
[2016-11-17] MEDS ORDERED: PAPAVERINE HCL INJ 30 MG/ML 2 ML VIAL ONE (11:21)
[2016-11-17] MEDS ORDERED: ETOMIDATE 2 MG/ML 20 ML VIAL IV ONE (12:39)
[2016-11-17] MEDS ORDERED: ONDANSETRON INJ 2 MG/ML 2 ML VIAL ONE (12:39)
[2016-11-17] MEDS ORDERED: PHENYLEPHRINE HCL INJ 10 MG/ML VIAL ONE (12:39)
[2016-11-17] MEDS ORDERED: D5W AND 1/2NSS 1,000 ML IV SCH (14:33)
--- NOTE | 2016-11-17 14:33 | [facility] Post Operative Brief Note ---
Immediate Operative Summary Operative Date Nov 17, 2016. Pre-Operative Diagnosis Right iliac artery stenosis Post-Operative Diagnosis Same Procedure(s) Performed Right Profundoplasty; Right Common Iliac Artery Stent Surgeon Dr. Gomez [employer] Architect Surgeon(s) Lyn Sharma PA-C Estimated Blood Loss 100 ml Findings severe stenosis of profunda origin Specimens none Anesthesia Gen Complication(s) None Disposition Recovery Room / PACU
[2016-11-17] MEDS ORDERED: GUAIFENESIN SUGAR FREE 100 MG/5 ML UDC PO PRN (14:45)
[2016-11-17] MEDS ORDERED: HYDROmorphone INJ 0.5 MG/0.5 ML SYR IV PRN (14:45)
[2016-11-17] MEDS ORDERED: BISACODYL 10 MG SUPP PR PRN (14:45)
[2016-11-17] MEDS ORDERED: LORAZEPAM 0.5 MG TAB PO PRN (14:45)
[2016-11-17] MEDS ORDERED: ALUMINUM/MAGNESIUM/SIMETH (MAALOX MAX) 30 ML UDC PO PRN (14:45)
[2016-11-17] MEDS ORDERED: ACETAMINOPHEN 325 MG TAB PO PRN (14:45)
[2016-11-17] MEDS ORDERED: MAGNESIUM HYDROXIDE SUSP 30 ML UDC PO PRN (14:45)
[2016-11-17] MEDS ORDERED: LABETALOL HCL IV 5 MG/ML 20ML IV PRN (15:15)
[2016-11-17] MEDS ORDERED: NALOXONE HCL 0.4 MG/1 ML VIAL/CARP IV PRN (15:15)
[2016-11-17] MEDS ORDERED: ATROPINE SULFATE 0.1 MG/ML 5ML SYR IV PRN (15:15)
[2016-11-17] MEDS ORDERED: ONDANSETRON INJ 2 MG/ML 2 ML VIAL IV PRN (15:15)
[2016-11-17] MEDS ORDERED: HYDROmorphone INJ 1 MG/ML SYR IV PRN (15:15)
[2016-11-17] MEDS ORDERED: EpHEDrine SULFATE INJ 50 MG/ML AMP IV PRN (15:15)
[2016-11-17] MEDS ORDERED: PROMETHAZINE HCL INJ 12.5 MG in SODIUM CHLORIDE 0.9% 50ML 50 ML IV PRN (15:15)
[2016-11-17] MEDS ORDERED: FLUMAZENIL 0.1 MG/1 ML 10 ML VIAL IV PRN (15:15)
[2016-11-17] MEDS: CHECK FENTANYL PATCH PLACEMENT SCH (16:00)
[2016-11-17] MEDS: FENTANYL 50 MCG/HR TDSY TD SCH ×2 (16:00→19:13)
[2016-11-17 16:26] LABS: BASO % 0.3 %; BASO ABS # 0.02 K/uL (0-0.2); COMPLETE YES; EOS % 2.5 %; HEMATOCRIT 38.7 % (42-52); IG% 0.3 %; LYMPH % 30.4 %; MEAN CELL VOLUME 104.6 fL (80-100); MEAN CORPUSCULAR HEMOGLOBIN 32.4 pg (25-34); MEAN PLATELET VOLUME 9.5 fL (7.4-10.4); MONO % 6.6 %; NEUT % 59.9 %; PLATELET COUNT 172 K/uL (130-400); WHITE BLOOD COUNT 7.57 K/uL (4.8-10.8)
[2016-11-17] MEDS: ARTIFICIAL TEARS OP SOLN OP SCH ×4 (17:00→20:40)
[2016-11-17] MEDS ORDERED: GUAIFENESIN/DEXTROM SYRUP 200MG/20MG 10ML UDC PO PRN (17:00)
--- NOTE | 2016-11-17 18:26 | [facility] Operative Report ---
Operative Report Operative Date Nov 17, 2016. Pre-Operative Diagnosis Right iliac artery stenosis Post-Operative Diagnosis Same Procedure(s) Performed Right Profundoplasty; Right Common Iliac Artery Stent Surgeon Dr. Gomez Rn Sexual Assault Surgeon(s) Abraham Archibald MD , Lyn Sharma PA-C Estimated Blood Loss 100 ml Findings Patient had a stenosis of the common iliac artery on the right side distal to the aortic bifurcation. Patient had a large plaque burden in the right common femoral artery extending into the profunda artery. Fluoroscopy time 1.8 min Radiation dose [id number] Specimens none Anesthesia Gen Complication(s) None Disposition Recovery Room / PACU Indications 65 year old male with peripheral arterial disease in his right lower extremity along with a slow healing venous ulceration of his lower extremity. A CTA which demonstrates a long occlusion of his right lower extremity SFA. CTA also demonstrates proximal iliac stenosis and reconstitution of his distal SFA of the large collaterals. Description of Procedure Patient was brought to the operating room and positioned in the supine position on the operating table. A arterial line was placed in the right wrist. A Rincon catheter was also placed. The right groin was clipped and prepped and draped in a sterile fashion. A 10 blade was used to make an incision over the right groin. Dissection down to the common femoral artery on the right side was completed. The superficial femoral artery, the profunda artery as well as the common femoral artery were dissected dissection was extended down the profunda to expose approximately 5 cm until a soft portion of the profunda was identified. Care was taken not to injure any of the side branches of the profunda.. An access needle was used to access the common femoral artery access wire was then used and a 7 [place] sheath was placed in the right common femoral artery. An angiogram of the right common femoral common iliac external and internal iliac and distal aorta was obtained. This showed stenosis at the common iliac artery just distal to the aortic bifurcation. It also showed a patent internal iliac artery. An 0.035 angled Glidewire was advanced into the aorta. 7000 units of heparin was administered intravenously and 5 minutes after a 8mm x 29mm Viabon XL stent was then advanced across the lesion just distal to the aortic bifurcation and deployed in place. Following deployment and angiogram was completed showing a patent common iliac artery with no sign of any extravasation. A 10 x 40, the balloon was then advanced across the stent and inflated. Balloon was deflated and a follow-up angiogram was completed. Follow-up angiogram showed an excellent result with a patent common iliac artery. The wire and sheath were removed and the common femoral artery was clamped. The profunda femoris was clamped distally in a soft area with no plaque. At the posterior branch of the profunda was also clamped. Goldstein scissors were used to extend the access site into the common femoral on the anterior wall down the profunda femoris. The [place] elevator was used to remove the obstructing heart plaque in the profunda femoris and the common femoral artery. Once the artery was cleared of any debris a Dacron patch was then prepped and contact to the appropriate width and length. A 6-0 Prolene suture was used to suture the patch in place extending from the common femoral down over the profunda femoris back bleeding of the profunda femoris as well as forward bleeding from the common femoral were checked prior to closure of the patch. The common femoral profunda femoris and posterior branch of the profunda were unclamped. A repair stich 6-0 Prolene sutures was used to achieve hemostasis. Meticulous hemostasis was secured. The wound was then closed in multiple layers using 3-0 Vicryl suture the skin edges were then stapled together and a dry sterile dressing was placed over the wound after it was cleaned. At the end of the case the patient has an improved signal in his right foot PT. The patient was then awakened from anesthesia and taken to the recovery room in good condition. No complications occurred during this case. Dr. Gomez was present and scrubbed for the entire case. I, Dr. Gomez was present and scrubbed for the entire procedure. I attest to the content of the Intraoperative Record and any orders documented therein. Any exceptions are noted below.
--- NOTE | 2016-11-17 18:30 | Anesthesiology Progress Note ---
Anesthesia Post Op Note Date & Time Nov 17, 2016 at 16:36 Vital Signs Pain Intensity: 4 Vital Signs Past 12 Hours Date Time Temp Pulse Resp B/P (MAP) Pulse Ox O2 Delivery O2 Flow Rate FiO2 11/17/16 16:20 83 16 135/110 98 Nasal Cannula 2 89/48 (54) 11/17/16 16:10 81 12 75/55 97 Nasal Cannula 2 83/42 (54) 11/17/16 16:00 98 12 85/61 98 Nasal Cannula 2 85/71 (60) 11/17/16 15:58 84 16 77/62 97 Nasal Cannula 2 91/50 (60) 11/17/16 15:50 99 16 87/64 97 Nasal Cannula 2 11/17/16 15:40 88 12 101/53 93 Nasal Cannula 2 11/17/16 15:30 90 16 101/53 98 Nasal Cannula 2 11/17/16 15:20 86 13 114/61 100 Oxymask 10 11/17/16 15:10 85 14 94/60 100 Oxymask 10 11/17/16 15:01 36.6 91 16 105/75 96 Oxymask 10 11/17/16 09:15 36.6 70 20 90/65 95 Room Air Notes Mental Status: alert / awake / arousable, participated in evaluation Pt Amnestic to Procedure: Yes Nausea / Vomiting: adequately controlled Pain: adequately controlled Airway Patency, RR, SpO2: stable & adequate BP & HR: stable & adequate Hydration State: stable & adequate Anesthetic Complications: no major complications apparent blood pressure at preoperative baseline and patient mentating appropriately
[2016-11-17] MEDS: FERROUS SULFATE 325 MG TAB PO SCH (18:44)
[2016-11-17] MEDS: RIVAROXABAN 20 MG TAB PO SCH (18:44)
[2016-11-17] MEDS: CEFAZOLIN IV 2,000 MG in DEXTROSE 5% 50ML 50 ML IV SCH (20:24)
[2016-11-17] MEDS: FLUTICASONE/SALMETEROL (ADVAIR) 500/50 INH 14 PUFF INH SCH (20:24)
[2016-11-17] MEDS: IPRATROPIUM BROMIDE/ALBUTEROL respimat INH INH SCH (20:26)
[2016-11-17] MEDS: RANITIDINE HCL 150 MG TAB PO SCH (20:27)
[2016-11-17] MEDS: CARVEDILOL 6.25 MG TAB PO SCH (20:28)
[2016-11-17] MEDS: ATORVASTATIN 20 MG TAB PO SCH (20:28)
[2016-11-17] MEDS: TOPIRAMATE 100 MG TAB PO SCH (20:29)
[2016-11-17] MEDS: ACETAMINOPHEN 500 MG TAB PO SCH (20:30)
[2016-11-17] MEDS: GABAPENTIN 600 MG TAB PO SCH (20:33)
[2016-11-17] MEDS ORDERED: SULFAMETHOXAZOLE PO SCH (21:00)
[2016-11-17] MEDS ORDERED: TRIMETHOPRIM PO SCH (21:00)
[2016-11-18] VITALS (7 sets, daily range): BP systolic 93–110; BP diastolic 55–70; PULSE 72–93; TEMP 36.6–37.5; O2SAT 72–96
[2016-11-18] MEDS: CHECK FENTANYL PATCH PLACEMENT SCH ×3 (00:28→16:06)
[2016-11-18] MEDS: CEFAZOLIN IV 2,000 MG in DEXTROSE 5% 50ML 50 ML IV SCH (03:42)
[2016-11-18] MEDS: IPRATROPIUM BROMIDE/ALBUTEROL respimat INH INH SCH ×4 (03:42→20:44)
[2016-11-18 06:18] LABS: BASO % 0.3 %; BASO ABS # 0.02 K/uL (0-0.2); COMPLETE YES; EOS % 1.9 %; HEMATOCRIT 35.4 % (42-52); IG% 0.1 %; LYMPH % 25.4 %; LYMPH ABS # 1.89 K/uL (1.2-3.4); MEAN CORPUSCULAR HGB CONC 33.3 g/dl (32-36); MEAN PLATELET VOLUME 9.5 fL (7.4-10.4); MONO % 9.4 %; NEUT % 62.9 %; PLATELET COUNT 137 K/uL (130-400); RED BLOOD COUNT 3.37 M/uL (4.7-6.1); WHITE BLOOD COUNT 7.44 K/uL (4.8-10.8)
[2016-11-18 06:49] LABS: BUN/CREATININE RATIO 9.7 (10-20); CALCIUM 8.2 mg/dl (8.5-10.1); CREATININE 1.3 mg/dl (0.60-1.40); POTASSIUM 3.9 mmol/L (3.5-5.1)
[2016-11-18] MEDS ORDERED: SOD PHOSPHATE/SOD BIPHOSPHATE ENEMA 132 ML BTL PR PRN (09:00)
--- NOTE | 2016-11-18 09:24 | Anesthesiology Progress Note ---
Anesthesia Post Op Note Date & Time Nov 18, 2016 at 09:24 Vital Signs Pain Intensity: 0.0 Vital Signs Past 12 Hours Date Time Temp Pulse Resp B/P (MAP) Pulse Ox O2 Delivery O2 Flow Rate FiO2 11/18/16 07:14 37.1 72 17 95/64 (74) 72 Nasal Cannula 2.0 11/18/16 03:45 37.5 80 18 93/61 (72) 90 Room Air 11/18/16 00:15 Nasal Cannula 2.0 11/17/16 23:05 37.0 74 20 112/72 (85) 95 Room Air Notes Mental Status: alert / awake / arousable, participated in evaluation Pt Amnestic to Procedure: Yes Nausea / Vomiting: adequately controlled Pain: adequately controlled Airway Patency, RR, SpO2: stable & adequate BP & HR: stable & adequate Hydration State: stable & adequate Anesthetic Complications: no major complications apparent
[2016-11-18] MEDS: FLUTICASONE/SALMETEROL (ADVAIR) 500/50 INH 14 PUFF INH SCH ×2 (09:29→20:44)
[2016-11-18] MEDS: ASPIRIN 81 MG ECTAB PO SCH (09:29)
[2016-11-18] MEDS: ASCORBIC ACID 500 MG TAB PO SCH (09:29)
[2016-11-18] MEDS: CEROVITE ADV FORMULA TAB PO SCH (09:30)
[2016-11-18] MEDS: ALLOPURINOL 100 MG TAB PO SCH (09:31)
[2016-11-18] MEDS: FUROSEMIDE 40 MG TAB PO SCH (09:33)
[2016-11-18] MEDS: POTASSIUM CHLORIDE 10 MEQ TABCR PO SCH (09:33)
[2016-11-18] MEDS: RANITIDINE HCL 150 MG TAB PO SCH ×2 (09:33→20:45)
[2016-11-18] MEDS: TOPIRAMATE 100 MG TAB PO SCH ×2 (09:33→20:45)
[2016-11-18] MEDS: SERTRALINE HCL 100 MG TAB PO SCH (09:35)
[2016-11-18] MEDS: ACETAMINOPHEN 500 MG TAB PO SCH ×2 (09:36→15:31)
[2016-11-18] MEDS: CARVEDILOL 6.25 MG TAB PO SCH ×2 (09:41→20:45)
[2016-11-18] MEDS: ARTIFICIAL TEARS OP SOLN OP SCH ×8 (10:00→20:37)
[2016-11-18] MEDS: ISOSORBIDE MONONITRATE 60 MG TABCR PO SCH (11:39)
[2016-11-18] MEDS: FERROUS SULFATE 325 MG TAB PO SCH ×2 (11:39→17:58)
[2016-11-18] MEDS: GABAPENTIN 100 MG CAP PO SCH (11:39)
[2016-11-18] MEDS: LOSARTAN POTASSIUM 25 MG TAB PO SCH (11:39)
[2016-11-18] MEDS: OXYCODONE/ACETAMINOPHEN 5-325 TAB PO PRN ×2 (13:36→20:46)
--- NOTE | 2016-11-18 13:36 | Progress Note ---
Progress Note Date of Service: Nov 18, 2016. Subjective 65 yo m with multiple medical problems, POD #1 after R profundaplasty and R Comm iliac art stent insertion, seen in f/u today. Pt states pain controlled. Denies any new complaints. Problem List Medical Problems: (1) Acute exacerbation of chronic low back pain Status: Acute (2) Fall Status: Acute Objective Vital Signs Vital Signs Past 12 Hours Date Time Temp Pulse Resp B/P (MAP) Pulse Ox O2 Delivery O2 Flow Rate FiO2 11/18/16 13:28 36.6 90 16 101/68 (79) 93 Room Air 11/18/16 09:40 86 94/66 (75) 11/18/16 07:50 Room Air 93 11/18/16 07:14 37.1 72 17 95/64 (74) 92 Nasal Cannula 2.0 11/18/16 03:45 37.5 80 18 93/61 (72) 90 Room Air Exam CONST: A&O x3, NAD, chronically ill appearing, unkempt male. Appears comfortable, eating presently. Refused further exam. Laboratory and Microbiology Results Past 24 Hours Test 11/17/16 16:07 11/18/16 06:00 Range/Units White Blood Count 7.57 7.44 4.8-10.8 K/uL Red Blood Count 3.70 3.37 4.7-6.1 M/uL Hemoglobin 12.0 11.8 14.0-18.0 g/dL Hematocrit 38.7 35.4 42-52 % Mean Corpuscular Volume 104.6 105.0 80-100 fL Mean Corpuscular Hemoglobin 32.4 35.0 25-34 pg Mean Corpuscular Hemoglobin Concent 31.0 33.3 32-36 g/dl Platelet Count 172 137 130-400 K/uL Mean Platelet Volume 9.5 9.5 7.4-10.4 fL Neutrophils (%) (Auto) 59.9 62.9 % Lymphocytes (%) (Auto) 30.4 25.4 % Monocytes (%) (Auto) 6.6 9.4 % Eosinophils (%) (Auto) 2.5 1.9 % Basophils (%) (Auto) 0.3 0.3 % Neutrophils # (Auto) 4.54 4.68 1.4-6.5 K/uL Lymphocytes # (Auto) 2.30 1.89 1.2-3.4 K/uL Monocytes # (Auto) 0.50 0.70 0.11-0.59 K/uL Eosinophils # (Auto) 0.19 0.14 0-0.5 K/uL Basophils # (Auto) 0.02 0.02 0-0.2 K/uL RDW Standard Deviation 53.0 53.5 36.4-46.3 fL RDW Coefficient of Variation 13.8 13.9 11.5-14.5 % Immature Granulocyte % (Auto) 0.3 0.1 % Immature Granulocyte # (Auto) 0.02 0.01 0.00-0.02 K/uL Sodium Level 142 136-145 mmol/L Potassium Level 3.9 3.5-5.1 mmol/L Chloride Level 109 98-107 mmol/L Carbon Dioxide Level 29 21-32 mmol/L Anion Gap 4.0 3-11 mmol/L Blood Urea Nitrogen 13 7-18 mg/dl Creatinine 1.30 0.60-1.40 mg/dl Est Creatinine Clear Calc Drug Dose 77.6 ml/min Estimated GFR () 65.4 Estimated GFR (Non- 56.5 BUN/Creatinine Ratio 9.7 10-20 Random Glucose 87 70-99 mg/dl Calcium Level 8.2 8.5-10.1 mg/dl ASSESSMENT and PLAN: s/p R profundaplasty and R common iliac artery stent Severe PAD with nonhealing ulcer RLE Pt irritable, but appears to be doing well post op. Will remove dressing tomorrow.
[2016-11-18] MEDS: RIVAROXABAN 20 MG TAB PO SCH (17:58)
[2016-11-18] MEDS: ATORVASTATIN 20 MG TAB PO SCH (20:45)
[2016-11-18] MEDS: GABAPENTIN 600 MG TAB PO SCH (20:45)
[2016-11-19] MEDS: CHECK FENTANYL PATCH PLACEMENT SCH ×3 (00:08→16:30)
[2016-11-19] MEDS: IPRATROPIUM BROMIDE/ALBUTEROL respimat INH INH SCH ×3 (03:00→15:30)
[2016-11-19 06:51] VITALS: BP 120/85; PULSE 86; TEMP 37.6; O2SAT 95
[2016-11-19] MEDS: FLUTICASONE/SALMETEROL (ADVAIR) 500/50 INH 14 PUFF INH SCH (09:28)
[2016-11-19] MEDS: CARVEDILOL 6.25 MG TAB PO SCH (09:29)
[2016-11-19] MEDS: ASPIRIN 81 MG ECTAB PO SCH (09:30)
[2016-11-19] MEDS: ALLOPURINOL 100 MG TAB PO SCH (09:30)
[2016-11-19] MEDS: FERROUS SULFATE 325 MG TAB PO SCH (09:30)
[2016-11-19] MEDS: RANITIDINE HCL 150 MG TAB PO SCH (09:31)
[2016-11-19] MEDS: ISOSORBIDE MONONITRATE 60 MG TABCR PO SCH (09:31)
[2016-11-19] MEDS: CEROVITE ADV FORMULA TAB PO SCH (09:31)
[2016-11-19] MEDS: ASCORBIC ACID 500 MG TAB PO SCH (09:31)
[2016-11-19] MEDS: LOSARTAN POTASSIUM 25 MG TAB PO SCH (09:32)
[2016-11-19] MEDS: FUROSEMIDE 40 MG TAB PO SCH (09:32)
[2016-11-19] MEDS: GABAPENTIN 100 MG CAP PO SCH (09:33)
[2016-11-19] MEDS: TOPIRAMATE 100 MG TAB PO SCH (09:34)
[2016-11-19] MEDS: ACETAMINOPHEN 500 MG TAB PO SCH (09:34)
[2016-11-19] MEDS: POTASSIUM CHLORIDE 10 MEQ TABCR PO SCH (09:35)
[2016-11-19] MEDS: SERTRALINE HCL 100 MG TAB PO SCH (09:36)
[2016-11-19] MEDS: ARTIFICIAL TEARS OP SOLN OP SCH ×4 (09:42→14:38)
[2016-11-19 15:00] VITALS: BP 97/71; PULSE 69; O2SAT 93
--- NOTE | 2016-11-19 15:22 | Progress Note ---
Progress Note Date of Service: Nov 19, 2016. Subjective No complaints Problem List Medical Problems: (1) Acute exacerbation of chronic low back pain Status: Acute (2) Fall Status: Acute Objective Vital Signs Vital Signs Past 12 Hours Date Time Temp Pulse Resp B/P (MAP) Pulse Ox O2 Delivery O2 Flow Rate FiO2 11/19/16 12:52 Room Air 11/19/16 06:51 37.6 86 19 120/85 (97) 95 Room Air Exam VSS Afebrile Incision dry and clean. mild ecchymosis present Good distal flow Intake & Output 8-Hour Column 11/19/16 11/20/16 11/20/16 16:00 00:00 08:00 Intake Total 275 ml Output Total 400 ml Balance -125 ml 24-Hour Column 11/20/16 08:00 Intake Total 275 ml Output Total 400 ml Balance -125 ml Imp: Post iliac stent and profundoplasty Plan: Doing well. Transfer to [facility]
--- NOTE | 2016-11-19 15:28 | Discharge Instructions ---
Discharge Instructions Date of Service Nov 19, 2016. Admission Reason for Admission: Right Lower Extremity Peripheral Arterial Disease Discharge Discharge Diagnosis / Problem: Right iliac and profunda femoral artery stenosis Discharge Goals Goal(s): Therapeutic intervention Activity Recommendations Activity Limitations: per Instructions/Follow-up section Lifting Limitations: no more than 25 pounds Exercise/Sports Limitations: as tolerated Shower/Bathe: no limitations Instructions / Follow-Up Instructions / Follow-Up Call [phone] to schedule a follow up appointment if one not already scheduled. Change groin dressing daily. Cover with 4x4 and medipore tape ACTIVITY RECOMMENDATIONS: See Above SPECIAL CARE INSTRUCTIONS: Call your doctor if: * Temperature above 101 degrees * Pain not relieved by pain medicine ordered * There is increased drainage or redness from any incision * You have any unanswered questions or concerns. Current Hospital Diet Patient's current hospital diet: AHA Diet (Heart Healthy) Discharge Diet Recommended Diet: AHA Diet (Heart Healthy) Procedures Procedures Performed: Right Profundoplasty; Right Common Iliac Artery Stent Pending Studies Studies pending at discharge: no Medical Emergencies . Who to Call and When: Medical Emergencies: If at any time you feel your situation is an emergency, please call 911 immediately. . Non-Emergent Contact Non-Emergency issues call your: Surgeon . "Provider Documentation" section prepared by David Gomez. . VTE Core Measure Inpt VTE Proph given/why not?: Other Anticoagulation
[2016-11-19 16:06] VITALS: BP 97/71; PULSE 69; TEMP 37.6; O2SAT 93
--- NOTE | 2016-11-20 13:35 | DISCHARGE SUMMARY ---
ADMISSION DIAGNOSIS: Nonhealing ulcer of right leg with severe peripheral arterial disease. DISCHARGE DIAGNOSES: 1. Status post right leg profundoplasty and right common iliac artery stent. 2. Right leg nonhealing ulcer. 3. Severe peripheral arterial disease. DISCHARGE CONDITION: Stable. CONSULTATIONS IN THE HOSPITAL: Included none. PROCEDURES IN THE HOSPITAL: Include he has a right leg profundoplasty and right common iliac artery stenting performed on 11/17/[address] Gomez. The patient had an EBL of 100 mL and had no significant complications during his procedure. HISTORY OF PRESENT ILLNESS: Mr. Valadez is a 65-year-old male with a longstanding history of severe peripheral arterial disease. He had previously undergone a left leg [id number] amputation. He was referred to our office due to a nonhealing ulceration of his right leg. At that time an attempt was made for angiography with intervention; however, he was noted to have a noncrossable SFA occlusion as well as severe right external iliac artery stenosis as well as a severe stenosis of his right profunda artery. Due to the severity of his lower extremity wound and the risk of infection in light of the fact that he already has a left lower extremity below the knee amputation and was not a good surgical candidate for an extended procedure he was recommended to consider undergoing a right leg profundoplasty and stenting of the common iliac artery to revascularize his right leg for healing purposes. The procedure, risks, benefits, alternatives were discussed with the patient in the office, he expressed understanding and agreement to proceed. HOSPITAL COURSE: The patient was admitted after undergoing his right leg procedure. He essentially did well postoperatively and had minimal discomfort and bleeding from his surgical site. He remained essentially stable. He was taking p.o. well, transferring well and was felt to be stable enough for discharge back to [facility] on postop day 2. PHYSICAL EXAMINATION: VITAL SIGNS: On day of discharge, his vital signs were as follows: Pulse of 69, respiratory rate of 20, blood pressure of 120/85 with a pulse oximetry of 95% on room air. CONSTITUTIONAL: Generally the patient is a chronically ill appearing, unkempt, malodorous and uncooperative individual. He is in no acute distress. He was awake, alert and oriented x3 with normal recent and remote memory. HEAD: Normocephalic and atraumatic. EYES: EOMI. EARS, NOSE, MOUTH, THROAT EXAMINATION: Demonstrated no hearing loss, rhinorrhea or pharyngeal erythema. NECK: Supple, nontender with midline trachea without masses or crepitus. LUNGS: Exam demonstrated no dyspnea. They are decreased throughout. HEART: Demonstrates regular rate and rhythm. ABDOMEN: Soft, nontender with normoactive bowel sounds in all 4 quadrants. The patient has +3 carotid and brachial pulses. Radials are +2, femoral since his procedure are +2 bilaterally. EXTREMITIES: His left lower extremity has nonpalpable distal pulses due to his below the knee amputation and his right lower extremity has nonpalpable distal pulses as well although they are able to be found easily with the Doppler. NEUROLOGIC: The patient has grossly intact cranial nerves and grossly intact sensation without any focal deficits. DIET UPON DISCHARGE: Should be a low-cholesterol AHA diet. MEDICATIONS: Reconciled in the chart and are as per his discharge instructions. FOLLOWUP: Should be with Dr. Gomez within 2 weeks for reevaluation and removal of his sweetie. Advised to call the office with any other questions.
[2016-11-20] MEDS ORDERED: FENTANYL PATCH REMOVE & WASTE SCH (15:30)
== END 2016-11-19 17:00 | DRG 253 ==
LOC: C.ACU 08:21 → C.MSN 10:33 → ENRESERV 15:58
PROVIDERS: ADMIT Surgery Vascular Surgery; ATTEND Surgery Vascular Surgery
PROC: 04CK0ZZ Extirpation of Matter from Right Femoral Artery, Open Approach (ICD-10-PCS; principal; 2016-11-17 10:30)
PROC: B41C1ZZ Fluoroscopy of Pelvic Arteries using Low Osmolar Contrast (ICD-10-PCS; principal; 2016-11-17 10:30)
PROC: B41F1ZZ Fluoroscopy of Right Lower Extremity Arteries using Low Osmolar Contrast (ICD-10-PCS; principal; 2016-11-17 10:30)
PROC: 047C04Z Dilation of Right Common Iliac Artery with Drug-eluting Intraluminal Device, Open Approach (ICD-10-PCS; principal; 2016-11-17 10:30)
DX: I77.1 Stricture of artery (principal); L97.919 Non-pressure chronic ulcer of unspecified part of right lower leg with unspecified severity; I48.92 Unspecified atrial flutter; I73.9 Peripheral vascular disease, unspecified; I25.10 Atherosclerotic heart disease of native coronary artery without angina pectoris; I11.0 Hypertensive heart disease with heart failure; I50.9 Heart failure, unspecified; E78.00 Pure hypercholesterolemia, unspecified; J44.9 Chronic obstructive pulmonary disease, unspecified; I48.91 Unspecified atrial fibrillation; K21.9 Gastro-esophageal reflux disease without esophagitis; G62.9 Polyneuropathy, unspecified; G43.909 Migraine, unspecified, not intractable, without status migrainosus; F41.9 Anxiety disorder, unspecified; F32.9 Major depressive disorder, single episode, unspecified; F17.210 Nicotine dependence, cigarettes, uncomplicated; E66.9 Obesity, unspecified; Z68.37 Body mass index [BMI] 37.0-37.9, adult; Z89.512 Acquired absence of left leg below knee; Z95.1 Presence of aortocoronary bypass graft; Z95.810 Presence of automatic (implantable) cardiac defibrillator; Z86.711 Personal history of pulmonary embolism; Z86.718 Personal history of other venous thrombosis and embolism; Z79.01 Long term (current) use of anticoagulants; Z79.51 Long term (current) use of inhaled steroids; Z79.82 Long term (current) use of aspirin; Z79.891 Long term (current) use of opiate analgesic; Z79.899 Other long term (current) drug therapy

== ENCOUNTER → 2017-01-09 | Outpatient (CLI) | payer OTHER ==
[~2017-01-09] MED LIST changes: -CEFAZOLIN 1000MG/55 ML D5W IV SCH; -CEFAZOLIN 2000 MG/60 ML D5W 60 ML IV SCH; -LACTATED RINGER'S 1000ML 1,000 ML IV SCH; -SODIUM CHLORIDE 0.9% 1000ML 1,000 ML IV SCH
[2017-01-10 09:38] LABS: URINE APPEARANCE CLEAR (CLEAR); URINE BILIRUBIN NEG (NEG); URINE COLOR YELLOW; URINE NITRITE NEG (NEG); URINE PH 5.5 (4.5-7.5); URINE SPECIFIC GRAVITY 1.019 (1.000-1.030); UROBILINOGEN NEG (NEG)
[2017-01-10 09:51] LABS: MANUAL MICROSCOPIC REQUIRED? NO; REVIEW REQ? NO
== END ==
LOC: C.LABCC 22:30
PROVIDERS: ATTEND Internal Medicine
DX: R10.9 Unspecified abdominal pain (principal); R32 Unspecified urinary incontinence

== ENCOUNTER 2017-01-13 19:16 | Inpatient (IN) | payer OTHER ==
[~2017-01-13] VITALS: Ht 180.3 cm; Wt 109.6 kg
[2017-01-13] MEDS ORDERED: SODIUM CHLORIDE 0.9% 1000ML 1,000 ML IV ONE (19:37)
[2017-01-13] MEDS ORDERED: LEVAQUIN 750MG / 150ML D5W IV STA (19:37)
[2017-01-13] MEDS ORDERED: ACETAMINOPHEN 325 MG SUPP PR STA (19:37)
--- NOTE | 2017-01-13 19:52 | EMERGENCY ROOM VISIT NOTE ---
History Report prepared by Steve: Malik Cotter Under the Supervision of: Dr. Cooper Natarajan D.O. First contact with patient: 19:31 Chief Complaint: FEVER Stated Complaint: FEVER, History of Present Illness The patient is a 66 year old male who presents to the Emergency Room with complaints of a constant fever starting earlier today at [facility]. The nursing staff states that the patient had a fever of 101.2, and the patiently recently had a urine culture done that grew out three different organisms, though they are unsure if he is on antibiotics for that. The patient additionally is on Keflex for a wound on his leg. Additionally, the patient' s family states that the patient has been having urinary symptoms for the past three days. The patient has a history of PR, prostate cancer, Renetta syndrome, COPD, factor 5 Leiden, and UTIs. Source of History: family, nursing staff Onset: earlier today Position: other (global) Quality: other (urinary) Timing: constant Associated Symptoms: + urinary symptoms Review of Systems See HPI for pertinent positives & negatives. A total of 10 systems reviewed and were otherwise negative. 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 (3) Atrial fibrillation (4) Atrial flutter (5) Benign hypertension (6) Carcinoma of prostate (7) Chronic congestive heart failure (8) Gastroesophageal reflux disease (9) History of - pulmonary embolus (10) Hyperlipidemia (11) Hypoxemia (12) Migraine (13) Sepsis due to pneumonia (14) uti Family History FHx: ischemic heart disease Social History Smoking Status: Unknown if Ever Smoked Alcohol Use: occasionally Drug Use: none Marital Status: Housing Status: lives with significant other Occupation Status: disabled Current/Historical Medications Scheduled Acetaminophen (Tylenol), 1,000 MG PO BID Allopurinol (Zyloprim), 100 MG PO QAM Artificial Tears (Artificial Tears), 1-2 DROPS OP QID Ascorbic Acid (Vitamin C), 500 MG PO QAM Aspirin (Aspirin Ec), 81 MG PO QAM Carvedilol (Carvedilol), 9.375 MG PO BID Fentanyl (Fentanyl), 50 MCG TD [id number] Ferrous Sulfate (Ferrous Sulfate), 325 MG PO BID Fluticasone Prop/Salmeterol (Advair Diskus 500/50 60 Dose), 1 PUFFS INH BID Furosemide (Lasix), 60 MG PO QAM Gabapentin (Neurontin), 200 MG PO QAM Gabapentin (Neurontin), 600 MG PO HS Ipratropium-Albuterol (Combivent Respimat), 1 PUFFS INH Q6H Isosorbide Mononitrate (Imdur Ext Rel), 60 MG PO QAM Losartan Potassium (Cozaar), 25 MG PO QAM Multiple Vitamins W/ Minerals (Thera M Plus), 1 TAB PO QAM Potassium Chloride (Micro-K Ext Rel), 20 MEQ PO QAM Ranitidine Hcl (Zantac), 150 MG PO BID Rivaroxaban (Xarelto), 20 MG PO HS Sertraline (Zoloft), 200 MG PO QAM Simvastatin (Zocor), 40 MG PO QPM Sodium Phosphate/Biphosphate (Fleet Enema), 1 EA NH DAILY Topiramate (Topamax), 100 MG PO BID Scheduled PRN Acetaminophen Tab (Tylenol), 325 MG PO Q6H PRN for Pain Aluminum/Magnesium/Simeth (Maalox Max Susp), 30 ML PO Q6H PRN for RN Guaifenesin (Robitussin), 10 ML PO Q6H PRN for Cough Lorazepam (Ativan), 0.5 MG PO BID PRN for Anxiety/Insomnia Magnesium Hydroxide (Milk Of Magnesia), 30 ML PO for Constipation Miscellaneous Medications Prune Juice (Prune Juice ), 8 OZ PO Allergies Coded Allergies: Neomycin (Verified Allergy, Intermediate, RED, SORE, 01/13/17) Bacitracin (Verified Allergy, Unknown, unknown, 01/13/17) Kiwi (Verified Allergy, Unknown, itchy, 01/13/17) Polymyxin B (Verified Allergy, Unknown, unknown, 01/13/17) Morphine (Verified Adverse Reaction, Intermediate, HALLUCINATION, CONFUSION,AGITATION, 01/13/17) Physical Exam Vital Signs Date Time Temp Pulse Resp B/P (MAP) Pulse Ox O2 Delivery O2 Flow Rate FiO2 01/13/17 21:17 80 24 102/65 98 Nasal Cannula 4.0 01/13/17 20:22 Nasal Cannula 4.0 01/13/17 19:25 38.9 100 32 144/91 88 Room Air 01/13/17 19:23 100 Physical Exam GENERAL: Patient is listless. Responds to family members. Unable to assess orientation. EYES: The conjunctivae are clear. The pupils are round and reactive. EARS, NOSE, MOUTH AND THROAT: The nose is without any evidence of any deformity. Mucous membranes are dry tongue is midline NECK: The neck is nontender and supple. RESPIRATORY: Tachypnea noted but no definite rhonchi, rales, or wheezing. CARDIOVASCULAR: Irregular rhythm with no definite murmur. GASTROINTESTINAL: The abdomen is soft. Bowel sounds are present in all quadrants. 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 Right lower extremity is erythematous with multiple ulcerations noted. Venous stasis changes noted. Cellulitis noted in the right lower extremity. Wound dressing is in place. SKIN: There is pedal edema bilaterally. There is no obvious evidence of any rash. There are no petechiae, pallor or cyanosis noted. NEUROLOGIC: Patient is listless but responds to family members. Medical Decision & Procedures ER Provider Diagnostic Interpretation: Radiology results as stated below per my review and radiologist interpretation: CHEST ONE VIEW PORTABLE CLINICAL HISTORY: Sepsis. COMPARISON STUDY: Chest CT August 20, 2015. FINDINGS: A left subclavian pacer/AICD is in place. There are median sternotomy wires. Moderate cardiomegaly is unchanged. No pneumothorax or pleural effusion is identified. There is pulmonary vascular congestion without overt pulmonary edema. There is no lobar consolidation. There are right axillary surgical clips. IMPRESSION: 1. Pulmonary vascular congestion without overt pulmonary edema. 2. No lobar consolidation. Electronically signed by: Sami Acuña M.D. 01/13/2017 8:28 PM Dictated Date/Time: 01/13/2017 8:[address] OF THE CHEST WITHOUT IV CONTRAST CLINICAL HISTORY: Fever. Evaluate for occult pneumonia. COMPARISON STUDY: Chest CT August 20, 2015 and chest radiograph performed earlier today. CT DOSE: 1077.69 mGy.cm TECHNIQUE: Axial images of the chest were obtained without IV contrast. Images were reviewed in the axial, sagittal, and coronal planes. IV contrast was not administered for this examination. A dose lowering technique was utilized adhering to the principles of ALARA. FINDINGS: A left subclavian pacer/AICD is in place. The heart is moderately enlarged. There is no pericardial effusion. No enlarged axillary, mediastinal or hilar lymph nodes are present. No pneumothorax or pleural effusion is present. There is minimal pleural fluid or thickening along the left major fissure. This is diminished since prior exam. Lungs are suboptimally assessed due to respiratory motion. No confluent consolidation is present. A few groundglass opacities are noted within the lungs, including a 1.2 cm opacity within the right upper lobe shown image 115 and 301. There is mild bronchial wall thickening. There is minimal mucus within the airways. Mild upper lobe predominant paraseptal emphysema is present. A subacute fracture of the left 11th rib is noted. There are multiple old left-sided rib fractures. Postoperative findings involving the left T8-T9 neural foramen are unchanged. Mediastinal widening are noted as well as postsurgical findings consistent with bypass grafting. IMPRESSION: 1. No consolidation identified. Minimal groundglass opacities within the lungs, including a 1.2 cm ground glass opacity within the right upper lobe. The findings suggest a mild infectious process such bronchiolitis. A follow-up chest CT in 6 months to ensure resolution is recommended. 2. Moderate cardiomegaly and extensive coronary artery calcification. Electronically signed by: Sami Acuña M.D. 01/13/2017 10:46 PM Dictated Date/Time: 01/13/2017 10:33 PM Laboratory Results Test 01/13/17 19:38 01/13/17 20:00 01/13/17 20:49 01/13/17 20:55 Immature Granulocyte % (Auto) 0.7 % White Blood Count 20.58 K/uL (4.8-10.8) Red Blood Count 3.88 M/uL (4.7-6.1) Hemoglobin 13.2 g/dL (14.0-18.0) Hematocrit 40.9 % (42-52) Mean Corpuscular Volume 105.4 fL (80-100) Mean Corpuscular Hemoglobin 34.0 pg (25-34) Mean Corpuscular Hemoglobin Concent 32.3 g/dl (32-36) Platelet Count 170 K/uL (130-400) Mean Platelet Volume 9.5 fL (7.4-10.4) Neutrophils (%) (Auto) 89.9 % Lymphocytes (%) (Auto) 3.5 % Monocytes (%) (Auto) 5.8 % Eosinophils (%) (Auto) 0.1 % Basophils (%) (Auto) 0.0 % Neutrophils # (Auto) 18.47 K/uL (1.4-6.5) Lymphocytes # (Auto) 0.73 K/uL (1.2-3.4) Monocytes # (Auto) 1.20 K/uL (0.11-0.59) Eosinophils # (Auto) 0.02 K/uL (0-0.5) Basophils # (Auto) 0.01 K/uL (0-0.2) Immature Granulocyte # (Auto) 0.15 K/uL (0.00-0.02) Erythrocyte Sedimentation Rate 49 mm/hr (0-14) Total Bilirubin 0.9 mg/dl (0.2-1) Aspartate Amino Transf (AST/SGOT) 21 U/L (15-37) Alanine Aminotransferase (ALT/SGPT) 21 U/L (12-78) Alkaline Phosphatase 90 U/L (45-117) Total Creatine Kinase 61 U/L (39-308) Creatine Kinase MB 1.3 ng/ml (0.5-3.6) Creatine Kinase MB Ratio 2.1 (0-3.0) Troponin I 0.049 ng/ml (0-0.045) C-Reactive Protein 3.33 mg/dl (0-0.29) Pro-B-Type Natriuretic Peptide 6869 pg/ml (0-900) Total Protein 8.2 gm/dl (6.4-8.2) Albumin 3.3 gm/dl (3.4-5.0) Globulin 4.9 gm/dl (2.5-4.0) Albumin/Globulin Ratio 0.7 (0.9-2) Lipase 51 U/L (73-393) Urine Color DK YELLOW Urine Appearance CLEAR (CLEAR) Urine pH 7.0 (4.5-7.5) Urine Specific [place] 1.020 (1.000-1.030) Urine Protein NEG (NEG) Urine Glucose (UA) NEG (NEG) Urine Ketones TRACE (NEG) Urine Occult Blood NEG (NEG) Urine Nitrite NEG (NEG) Urine Bilirubin NEG (NEG) Urine Urobilinogen NEG (NEG) Urine Leukocyte Esterase TRACE (NEG) Urine WBC (Auto) 1-5 /hpf (0-5) Urine RBC (Auto) 5-10 /hpf (0-4) Urine Hyaline Casts (Auto) 1-5 /lpf (0-5) Urine Epithelial Cells (Auto) 20-30 /lpf (0-5) Urine Bacteria (Auto) NEG (NEG) Prothrombin Time 12.0 SECONDS (9.0-12.0) Prothromb Time International Ratio 1.1 (0.9-1.1) Activated Partial Thromboplast Time 31.2 SECONDS (21.0-31.0) Partial Thromboplastin Ratio 1.2 Venous Blood pH 7.30 (7.36-7.41) Venous Blood Partial Pressure CO2 57 mmHg (38.0-50.0) Venous Blood Partial Pressure O2 36 mmHg Venous Blood HCO3 27 mmol/L Venous Blood Oxygen Saturation 62.3 % Venous Blood Base Excess -0.5 mEq/L Bedside Lactic Acid Venous 1.22 mmol/L (0.90-1.70) Laboratory results per my review. Medications Administered Medications (Trade) Dose Ordered Sig/Emily Route Start Time Stop Time Status Last Admin Dose Admin Sodium Chloride 1,000 ml @ 999 mls/hr Q1H1M ONCE IV 01/13/17 19:37 01/13/17 20:37 DC 01/13/17 20:00 999 MLS/HR Acetaminophen (Tylenol Supp) 975 mg NOW STAT NH 01/13/17 19:37 01/13/17 19:41 DC 01/13/17 21:05 975 MG Levofloxacin (Levaquin / D5W) 750 mg NOW STAT IV 01/13/17 19:37 01/13/17 19:41 DC 01/13/17 20:40 750 MG Potassium Phosphate 21 mmol/ Sodium Chloride 507 ml @ 140 mls/hr ONE STAT IV 01/13/17 21:43 01/14/17 01:20 DC 01/14/17 00:25 140 MLS/HR ECG Indication: other (fever) Rate (beats per minute): 96 Rhythm: atrial fibrillation Findings: PVC, RBBB Comparison ECG Date: 01/08/15 Change: no significant change ED Course 1930: The patient was evaluated in room A3. A complete history and physical examination were performed. 1936: Levofloxacin 750mg IV, Acetaminophen 975mg NH, NSS 1,000 ml @ 999 mls/hr IV 5: I reevaluated the patient, and I discussed the treatment plan with the patient and his family 6: I discussed the patient's case with Dr. Larkin. The patient will be evaluated for further management. Medical Decision Differential diagnosis: Etiologies such as sepsis, UTI, pneumonia, metabolic, electrolyte abnormalities , cardiac sources, intracerebral event, toxicologic, neurologic, as well as others were entertained. Nursing notes reviewed. Additional history is obtained from the prehospital personnel. Additional history was obtained from the patient's family members. The patient is a 66-year-old male who presented to the emergency Department from a [place] [facility] for an evaluation of altered mental status and fever. The patient was found have signs of sepsis. At this time it does appear to be his right extremity that is the cause of this. He has multiple pressure ulcers and signs of cellulitis. He was also found have signs of shortness of breath and hypoxia but I'm unsure if this is secondary to the patient's pulmonary edema. He was treated with IV fluids and IV antibiotics. I discussed the patient's laboratory and radiographic studies with his family. I also discussed his case with the on-call [facility] hospitalist. They've agreed to evaluate the patient in the emergency department for further management and disposition. Medication Reconcilliation Current Medication List: was personally reviewed by me Blood Pressure Screening Patient's blood pressure: Low blood pressure Managed by the hospitalist Consults Time Called: 2220 Consulting Physician: Dr. Larkin Returned Call: [phone] I discussed the patient's case with Dr. Larkin. The patient will be evaluated for further management. Impression Primary Impression: Sepsis Additional Impressions: Pulmonary edema Cellulitis of right lower extremity Pressure ulcer Scribe Attestation The scribe's documentation has been prepared under my direction and personally reviewed by me in its entirety. I confirm that the note above accurately reflects all work, treatment, procedures, and medical decision making performed by me. Departure Information Dispostion Being Evaluated By Hospitalist Referrals [facility] (PCP) Patient Instructions My [facility] Problem Qualifiers Primary Impression: Sepsis Sepsis type: sepsis due to unspecified organism Qualified Codes: A41.9 - Sepsis, unspecified organism Additional Impressions: Pulmonary edema Chronicity: acute Qualified Codes: J81.0 - Acute pulmonary edema Pressure ulcer Pressure ulcer location: unspecified location Pressure ulcer stage: unspecified pressure ulcer stage Qualified Codes: L89.90 - Pressure ulcer of unspecified site, unspecified stage
[2017-01-13 19:53] LABS: BASO ABS # 0.01 K/uL (0-0.2); COMPLETE YES; EOS % 0.1 %; HEMATOCRIT 40.9 % (42-52); IG% 0.7 %; LYMPH % 3.5 %; LYMPH ABS # 0.73 K/uL (1.2-3.4); MEAN CELL VOLUME 105.4 fL (80-100); MEAN CORPUSCULAR HGB CONC 32.3 g/dl (32-36); MEAN PLATELET VOLUME 9.5 fL (7.4-10.4); MONO % 5.8 %; NEUT % 89.9 %; PLATELET COUNT 170 K/uL (130-400); RED BLOOD COUNT 3.88 M/uL (4.7-6.1); WHITE BLOOD COUNT 20.58 K/uL (4.8-10.8)
[2017-01-13] MEDS ORDERED: MULT-17 PO (19:54)
[2017-01-13] MEDS ORDERED: SIMV40TA2 PO (19:54)
[2017-01-13] MEDS ORDERED: DRGTP50 TD (19:54)
[2017-01-13] MEDS ORDERED: CRG3125 PO (19:54)
[2017-01-13 20:13] LABS: BUN/CREATININE RATIO 12.5 (10-20); CALCIUM 8.8 mg/dl (8.5-10.1); CREATININE 1.3 mg/dl (0.60-1.40); POTASSIUM 3.4 mmol/L (3.5-5.1)
--- NOTE | 2017-01-13 20:29 | DIAGNOSTIC IMAGING REPORT ---
CHEST ONE VIEW PORTABLE CLINICAL HISTORY: Sepsis. COMPARISON STUDY: Chest CT August 20, 2015. FINDINGS: A left subclavian pacer/AICD is in place. There are median sternotomy wires. Moderate cardiomegaly is unchanged. No pneumothorax or pleural effusion is identified. There is pulmonary vascular congestion without overt pulmonary edema. There is no lobar consolidation. There are right axillary surgical clips. IMPRESSION: 1. Pulmonary vascular congestion without overt pulmonary edema. 2. No lobar consolidation. Electronically signed by: Sami Acuña M.D. 01/13/2017 8:28 PM Dictated Date/Time: 01/13/2017 8:26 PM
[2017-01-13 20:35] LABS: ALB/GLOB RATIO 0.7 (0.9-2); C-REACTIVE PROTEIN 3.33 mg/dl (0-0.29); CKMB/CK RATIO 2.1 (0-3.0); PHOSPHORUS 1.5 mg/dl (2.5-4.9)
[2017-01-13 20:39] LABS: URINE APPEARANCE CLEAR (CLEAR); URINE BILIRUBIN NEG (NEG); URINE COLOR DK YELLOW; URINE EPITHELIAL CELL AUTO 20-30 /lpf (0-5); URINE NITRITE NEG (NEG); UROBILINOGEN NEG (NEG); ZZURINE CULT IF INDIC CATH NO
[2017-01-13 20:45] LABS: MANUAL MICROSCOPIC REQUIRED? NO; REVIEW REQ? NO
[2017-01-13 21:05] LABS: VEN BLD GAS O2 SATURATION 62.3 %; VEN BLOOD GAS BASE EXCESS -0.5 mEq/L
[2017-01-13 21:07] LABS: INR 1.1 (0.9-1.1); PARTIAL THROMBOPLASTIN RATIO 1.2
[2017-01-13] MEDS ORDERED: POTASSIUM PHOS 3 MMOL/1 ML INFUSION IV STA (21:31)
[2017-01-13] MEDS ORDERED: POTASSIUM PHOSPHATE INJ 21 MMOL in SODIUM CHLORIDE 0.9% 500ML 500 ML IV STA (21:43)
[2017-01-13] MEDS ORDERED: ALBUTEROL 0.083% NEBU SOLN 3 ML VIAL INH PRN (21:45)
[2017-01-13] MEDS ORDERED: GUAIFENESIN/CODEINE 100MG/10MG 5ML UDC PO PRN (21:45)
[2017-01-13] MEDS ORDERED: ALUMINUM/MAGNESIUM/SIMETH (MAALOX MAX) 30 ML UDC PO PRN ×2 (21:45→22:00)
[2017-01-13] MEDS ORDERED: ACETAMINOPHEN 325 MG TAB PO PRN (22:00)
[2017-01-13] MEDS ORDERED: NITROGLYCERIN 0.4 MG SL PER TAB CHARGE SL PRN (22:00)
[2017-01-13] MEDS ORDERED: ONDANSETRON INJ 2 MG/ML 2 ML VIAL IV PRN (22:00)
[2017-01-13] MEDS ORDERED: MoRPHine SULFATE 2 MG/ML CARP IV PRN (22:00)
[2017-01-13] MEDS ORDERED: POLYETHYLENE (MIRALAX) 17 GM PACK PO PRN (22:00)
[2017-01-13] MEDS ORDERED: MAGNESIUM HYDROXIDE SUSP 30 ML UDC PO PRN (22:00)
--- NOTE | 2017-01-13 22:47 | DIAGNOSTIC IMAGING REPORT ---
CT OF THE CHEST WITHOUT IV CONTRAST CLINICAL HISTORY: Fever. Evaluate for occult pneumonia. COMPARISON STUDY: Chest CT August 20, 2015 and chest radiograph performed earlier today. CT DOSE: 1077.69 mGy.cm TECHNIQUE: Axial images of the chest were obtained without IV contrast. Images were reviewed in the axial, sagittal, and coronal planes. IV contrast was not administered for this examination. A dose lowering technique was utilized adhering to the principles of ALARA. FINDINGS: A left subclavian pacer/AICD is in place. The heart is moderately enlarged. There is no pericardial effusion. No enlarged axillary, mediastinal or hilar lymph nodes are present. No pneumothorax or pleural effusion is present. There is minimal pleural fluid or thickening along the left major fissure. This is diminished since prior exam. Lungs are suboptimally assessed due to respiratory motion. No confluent consolidation is present. A few groundglass opacities are noted within the lungs, including a 1.2 cm opacity within the right upper lobe shown image 115 and 301. There is mild bronchial wall thickening. There is minimal mucus within the airways. Mild upper lobe predominant paraseptal emphysema is present. A subacute fracture of the left 11th rib is noted. There are multiple old left-sided rib fractures. Postoperative findings involving the left T8-T9 neural foramen are unchanged. Mediastinal widening are noted as well as postsurgical findings consistent with bypass grafting. IMPRESSION: 1. No consolidation identified. Minimal groundglass opacities within the lungs, including a 1.2 cm ground glass opacity within the right upper lobe. The findings suggest a mild infectious process such bronchiolitis. A follow-up chest CT in 6 months to ensure resolution is recommended. 2. Moderate cardiomegaly and extensive coronary artery calcification. Electronically signed by: Sami Acuña M.D. 01/13/2017 10:46 PM Dictated Date/Time: 01/13/2017 10:33 PM
--- NOTE | 2017-01-13 22:53 | History and Physical ---
History & Physical Date & Time of Service: Jan 13, 2017 at 22:01 Chief Complaint: Fever, Primary Care Physician: Clarita Solorzano History of Present Illness Source: patient, hospital records, [facility], other 66 y/o M with complex medical history including chronic systolic CHF, severe PAD , chronic AF, VT, Factor V Leiden mutation - resultant DVT/PE, HPL, HTN, chronic lower extremity ulcers, COPD. Resides at [facility] and was transferred to the ER today due to lethargy, cough and persistent high fever. He is not currently able to contribute to the HPI or ROS. A fever and hypoxia were noted on arrival. Initial labs are notable for marked leukocytosis. A CXR revealed vascular congestion but was not consistent with acute pneumonia. 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 11) Severe PAD 12) L BKA 13) R iliac profundoplasty and stent 14) Chronic troponin elevation 15) Recurrent UTIs Family History FHx: ischemic heart disease Social History Extensive smoking history prior to 2014 Smoking Status: Former Smoker Drug Use: none Marital Status: Housing status: lives with family Occupational Status: disabled Immunizations History of Influenza Vaccine: Yes Influenza Vaccine Date: Apr 16, 2012 History of Tetanus Vaccine?: No History of Pneumococcal: Yes Pneumococcal Date: Feb 03, 2007 History of Hepatitis B Vaccine: No Multi-Drug Resistant Organisms History of MDRO: Yes Type of MDRO: MRSA Allergies Coded Allergies: Neomycin (Verified Allergy, Intermediate, RED, SORE, 01/13/17) Bacitracin (Verified Allergy, Unknown, unknown, 01/13/17) Kiwi (Verified Allergy, Unknown, itchy, 01/13/17) Polymyxin B (Verified Allergy, Unknown, unknown, 01/13/17) Morphine (Verified Adverse Reaction, Intermediate, HALLUCINATION, CONFUSION,AGITATION, 01/13/17) Home Medications Scheduled Acetaminophen (Tylenol), 1,000 MG PO BID Allopurinol (Zyloprim), 100 MG PO QAM Artificial Tears (Artificial Tears), 1-2 DROPS OP QID Ascorbic Acid (Vitamin C), 500 MG PO QAM Aspirin (Aspirin Ec), 81 MG PO QAM Carvedilol (Carvedilol), 9.375 MG PO BID Fentanyl (Fentanyl), 50 MCG TD [id number] Ferrous Sulfate (Ferrous Sulfate), 325 MG PO BID Fluticasone Prop/Salmeterol (Advair Diskus 500/50 60 Dose), 1 PUFFS INH BID Furosemide (Lasix), 60 MG PO QAM Gabapentin (Neurontin), 200 MG PO QAM Gabapentin (Neurontin), 600 MG PO HS Ipratropium-Albuterol (Combivent Respimat), 1 PUFFS INH Q6H Isosorbide Mononitrate (Imdur Ext Rel), 60 MG PO QAM Losartan Potassium (Cozaar), 25 MG PO QAM Multiple Vitamins W/ Minerals (Thera M Plus), 1 TAB PO QAM Potassium Chloride (Micro-K Ext Rel), 20 MEQ PO QAM Ranitidine Hcl (Zantac), 150 MG PO BID Rivaroxaban (Xarelto), 20 MG PO HS Sertraline (Zoloft), 200 MG PO QAM Simvastatin (Zocor), 40 MG PO QPM Sodium Phosphate/Biphosphate (Fleet Enema), 1 EA NV DAILY Topiramate (Topamax), 100 MG PO BID Scheduled PRN Acetaminophen Tab (Tylenol), 325 MG PO Q6H PRN for Pain Aluminum/Magnesium/Simeth (Maalox Max Susp), 30 ML PO Q6H PRN for RN Guaifenesin (Robitussin), 10 ML PO Q6H PRN for Cough Lorazepam (Ativan), 0.5 MG PO BID PRN for Anxiety/Insomnia Magnesium Hydroxide (Milk Of Magnesia), 30 ML PO for Constipation Miscellaneous Medications Prune Juice (Prune Juice ), 8 OZ PO Review of Systems Cannot be obtained from pt - sent in due to cough, AMS, fever Respiratory: + shortness of breath Physical Exam Vital Signs Date Time Temp Pulse Resp B/P (MAP) Pulse Ox O2 Delivery O2 Flow Rate FiO2 01/13/17 21:17 80 24 102/65 98 Nasal Cannula 4.0 01/13/17 20:22 Nasal Cannula 4.0 01/13/17 19:25 38.9 100 32 144/91 88 Room Air 01/13/17 19:23 100 General Appearance: + pertinent finding (Lethargic overweight male - appears to be breathing comfortably) Head: normocephalic, atraumatic Eyes: normal inspection, EOMI ENT: normal ENT inspection, pharynx normal Neck: supple, + pertinent finding (Cannot assess JVD) Respiratory/Chest: chest non-tender, + pertinent finding (Poor effort - poor b/ l air moveemnt) Cardiovascular: + irregularly irregular, + pertinent finding (faint heart sounds - soft systolic murmur) Abdomen/GI: normal bowel sounds, non tender, soft Back: normal inspection, no CVA tenderness Extremities/Musculoskelatal: + pertinent finding (L BKA - erythematous at knee - multiple open, shallow ulcers RLE - shins, foot, heal - edema present) Neurologic/Psych: + pertinent finding (Lethargic - follows simple commands - moves all extremities - pupils equal, reactive) Skin: + pertinent finding (L BKA - erythematous at knee - multiple open, shallow ulcers RLE - shins, foot, heal - edema present) Diagnostics Laboratory Results Results Past 24 Hours Test 01/13/17 19:38 01/13/17 20:00 01/13/17 20:49 01/13/17 20:55 Range/Units White Blood Count 20.58 4.8-10.8 K/uL Red Blood Count 3.88 4.7-6.1 M/uL Hemoglobin 13.2 14.0-18.0 g/dL Hematocrit 40.9 42-52 % Mean Corpuscular Volume 105.4 80-100 fL Mean Corpuscular Hemoglobin 34.0 25-34 pg Mean Corpuscular Hemoglobin Concent 32.3 32-36 g/dl Platelet Count 170 130-400 K/uL Mean Platelet Volume 9.5 7.4-10.4 fL Neutrophils (%) (Auto) 89.9 % Lymphocytes (%) (Auto) 3.5 % Monocytes (%) (Auto) 5.8 % Eosinophils (%) (Auto) 0.1 % Basophils (%) (Auto) 0.0 % Neutrophils # (Auto) 18.47 1.4-6.5 K/uL Lymphocytes # (Auto) 0.73 1.2-3.4 K/uL Monocytes # (Auto) 1.20 0.11-0.59 K/uL Eosinophils # (Auto) 0.02 0-0.5 K/uL Basophils # (Auto) 0.01 0-0.2 K/uL RDW Standard Deviation 51.3 36.4-46.3 fL RDW Coefficient of Variation 13.5 11.5-14.5 % Immature Granulocyte % (Auto) 0.7 % Immature Granulocyte # (Auto) 0.15 0.00-0.02 K/uL Erythrocyte Sedimentation Rate 49 0-14 mm/hr Sodium Level 140 136-145 mmol/L Potassium Level 3.4 3.5-5.1 mmol/L Chloride Level 109 98-107 mmol/L Carbon Dioxide Level 25 21-32 mmol/L Anion Gap 6.0 3-11 mmol/L Blood Urea Nitrogen 16 7-18 mg/dl Creatinine 1.30 0.60-1.40 mg/dl Est Creatinine Clear Calc Drug Dose 69.6 ml/min Estimated GFR () 65.0 Estimated GFR (Non- 56.1 BUN/Creatinine Ratio 12.5 10-20 Random Glucose 114 70-99 mg/dl Calcium Level 8.8 8.5-10.1 mg/dl Phosphorus Level 1.5 2.5-4.9 mg/dl Magnesium Level 2.0 1.8-2.4 mg/dl Total Bilirubin 0.9 0.2-1 mg/dl Aspartate Amino Transf (AST/SGOT) 21 15-37 U/L Alanine Aminotransferase (ALT/SGPT) 21 12-78 U/L Alkaline Phosphatase 90 45-117 U/L Total Creatine Kinase 61 39-308 U/L Creatine Kinase MB 1.3 0.5-3.6 ng/ml Creatine Kinase MB Ratio 2.1 0-3.0 Troponin I 0.049 0-0.045 ng/ml C-Reactive Protein 3.33 0-0.29 mg/dl Pro-B-Type Natriuretic Peptide 6869 0-900 pg/ml Total Protein 8.2 6.4-8.2 gm/dl Albumin 3.3 3.4-5.0 gm/dl Globulin 4.9 2.5-4.0 gm/dl Albumin/Globulin Ratio 0.7 0.9-2 Lipase 51 73-393 U/L Urine Color DK YELLOW Urine Appearance CLEAR CLEAR Urine pH 7.0 4.5-7.5 Urine Specific [place] 1.020 1.000-1.030 Urine Protein NEG NEG Urine Glucose (UA) NEG NEG Urine Ketones TRACE NEG Urine Occult Blood NEG NEG Urine Nitrite NEG NEG Urine Bilirubin NEG NEG Urine Urobilinogen NEG NEG Urine Leukocyte Esterase TRACE NEG Urine WBC (Auto) 1-5 0-5 /hpf Urine RBC (Auto) 5-10 0-4 /hpf Urine Hyaline Casts (Auto) 1-5 0-5 /lpf Urine Epithelial Cells (Auto) 20-30 0-5 /lpf Urine Bacteria (Auto) NEG NEG Prothrombin Time 12.0 9.0-12.0 SECONDS Prothromb Time International Ratio 1.1 0.9-1.1 Activated Partial Thromboplast Time 31.2 21.0-31.0 SECONDS Partial Thromboplastin Ratio 1.2 Venous Blood pH 7.30 7.36-7.41 Venous Blood Partial Pressure CO2 57 38.0-50.0 mmHg Venous Blood Partial Pressure O2 36 mmHg Venous Blood HCO3 27 mmol/L Venous Blood Oxygen Saturation 62.3 % Venous Blood Base Excess -0.5 mEq/L Bedside Lactic Acid Venous 1.22 0.90-1.70 mmol/L Microbiology Results 01/13/17 Blood Culture, Received Pending 01/13/17 Blood Culture, Received Pending EKG AF, LAFB, RBBB - no significant change Impression Assessment and Plan 66 y/o M with complex medical history including chronic systolic CHF, severe PAD , chronic AF, VT, Factor V Leiden mutation - resultant DVT/PE, HPL, HTN, chronic lower extremity ulcers, COPD. Resides at [facility] and was transferred to the ER today due to lethargy, cough and persistent high fever. He is not currently able to contribute to the HPI or ROS. A fever and hypoxia were noted on arrival. Initial labs are notable for marked leukocytosis, hypoK , hypophos. A CXR revealed vascular congestion but was not consistent with acute pneumonia. 1) Fever - Pulmonary vs skin source - cough reported - hypoxic on arrival - no clear PNM on CXR - multiple foot wound and erythema at [facility] - UA is negative. Pt will be sent for noncontrast CT chest. We will treat with broad spectrum antibiotics pending culture results as he meets sepsis criteria. Wound care is consulted. May need surgery consult if skin source of sepsis confirmed. 2) COPD - Contributing to hypoxia - will provide duonebs/albuterol and an initial dose of Solumedrol. Continue prescribed inhalers. 3) Systolic CHF - clinically dehydrated on arrival - provided with IVF and Lasix held pending AM reevaluation - cont ARB, Carvedilol. 4) CAD - Trop is elevated but represents a value below baseline - no evidence of ACS at present - cont B russ, ASA, Statin 5) AF - rate controlled - cont B russ - anticoagulated with Xarelto 6) PVD - Follows with vascular surgery and wound care - cont ASA 7) Factor V mutation - Hx DVT/PE - cont Xarelto 8) Gout - cont Allopurinol Full code - Xarelto prophylaxis Total time for this admit including review of labs, meds, imaging, EKG - discussion with pt and ER attending - 48 min Level of Care Telemetry Resuscitation Status FULL RESUSCITATION VTE Prophylaxis VTE Risk Assessment Done? Y/N: Yes Risk Level: High Given or contraindicated: Other Anticoagulation
[2017-01-13] MEDS: FENTANYL 50 MCG/HR TDSY TD SCH (23:00)
[2017-01-13 23:02] VITALS: BP 103/68; PULSE 80; TEMP 37.2; O2SAT 95; Ht 180.3 cm; Wt 109.6 kg
[2017-01-13] MEDS: FENTANYL PATCH REMOVE & WASTE SCH (23:06)
[2017-01-14] VITALS (7 sets, daily range): BP systolic 107–133; BP diastolic 63–79; PULSE 62–82; TEMP 36.6–37.2; O2SAT 95–100
[2017-01-14] MEDS ORDERED: DAPTOMYCIN CONSULT ACTIVE PRN ×2 (00:15)
[2017-01-14] MEDS ORDERED: PIPERACILL/TAZOBAC CONSULT ACTIVE PRN (00:15)
[2017-01-14] MEDS ORDERED: LEVOFLOXACIN CONSULT ACTIVE PRN (00:15)
[2017-01-14] MEDS ORDERED: PIPERACILL/TAZOBAC IV 3.375 GM in DEXTROSE 5% 100ML 100 ML IV ONE (00:30)
[2017-01-14] MEDS: DAPTOmycin IV 700 MG in SODIUM CHLORIDE 0.9% 50ML 50 ML IV SCH (01:09)
[2017-01-14] MEDS: FENTANYL 50 MCG/HR TDSY TD SCH (01:33)
[2017-01-14] MEDS: ALBUT/IPRATROP 3MG/0.5MG NEB 3 ML VIAL INH SCH ×4 (01:53→19:46)
[2017-01-14] MEDS: PIPERACILL/TAZOBAC IV 3.375 GM in DEXTROSE 5% 100ML IV SCH ×3 (05:38→22:52)
[2017-01-14 07:31] LABS: HEMATOCRIT 39.3 % (42-52); MEAN CELL VOLUME 104.5 fL (80-100); MEAN CORPUSCULAR HGB CONC 32.6 g/dl (32-36); MEAN PLATELET VOLUME 9.9 fL (7.4-10.4); PLATELET COUNT 165 K/uL (130-400); RED BLOOD COUNT 3.76 M/uL (4.7-6.1); WHITE BLOOD COUNT 24.94 K/uL (4.8-10.8)
[2017-01-14] MEDS ORDERED: INFLUENZA VACCINE HIGH DOSE 65+ 0.5 ML SYR IM. ONE (08:00)
[2017-01-14] MEDS: FLUTICASONE/SALMETEROL (ADVAIR) 500/50 INH 14 PUFF INH SCH ×2 (08:00→20:09)
[2017-01-14] MEDS ORDERED: INFLUENZA ADMINISTRATION CHARGE ONE (08:00)
[2017-01-14] MEDS: ASPIRIN 81 MG ECTAB PO SCH (08:01)
[2017-01-14] MEDS: GABAPENTIN 100 MG CAP PO SCH (08:01)
[2017-01-14] MEDS: SERTRALINE HCL 100 MG TAB PO SCH (08:01)
[2017-01-14] MEDS: ISOSORBIDE MONONITRATE 60 MG TABCR PO SCH (08:02)
[2017-01-14] MEDS: FERROUS SULFATE 325 MG TAB PO SCH ×2 (08:02→20:05)
[2017-01-14] MEDS: ALLOPURINOL 100 MG TAB PO SCH (08:02)
[2017-01-14] MEDS: POTASSIUM CHLORIDE 10 MEQ TABCR PO SCH (08:03)
[2017-01-14] MEDS: RANITIDINE HCL 150 MG TAB PO SCH ×2 (08:03→20:06)
[2017-01-14] MEDS: CARVEDILOL 3.125 MG TAB PO SCH ×2 (08:03→20:08)
[2017-01-14] MEDS: TOPIRAMATE 100 MG TAB PO SCH ×2 (08:04→20:08)
[2017-01-14] MEDS: LOSARTAN POTASSIUM 25 MG TAB PO SCH (08:04)
[2017-01-14 08:08] LABS: BUN/CREATININE RATIO 14.5 (10-20); CALCIUM 8.8 mg/dl (8.5-10.1); CREATININE 1.2 mg/dl (0.60-1.40); MAGNESIUM 2.1 mg/dl (1.8-2.4); POTASSIUM 3.9 mmol/L (3.5-5.1)
[2017-01-14 08:11] LABS: PHOSPHORUS 3.4 mg/dl (2.5-4.9)
[2017-01-14] MEDS: CHECK FENTANYL PATCH PLACEMENT SCH ×2 (08:19→16:00)
--- NOTE | 2017-01-14 08:21 | Clinical Documentation Query ---
CLINICAL DOCUMENTATION QUERY Query #1/5 66 year old male who presents to the Emergency Room with complaints of a constant fever In your clinical opinion is this patient being managed for: ( ) Sepsis in setting of pulmonary or skin source treated with IVF bolus and multiple IV antibiotics. ( ) Not Agree ( ) Other explanation of clinical findings (Please Explain) ( ) Unable to determine (Please Define) ( ) Need to Discuss The medical record reflects the following clinical findings, treatment, and risk factors. Clinical Indicators: Fever 38.9, tachycardia 100's, tachypnea 32, hypoxia 88%, Leukocytosis 20.58, acidosis VBG 7.30, ESR 49, CPR 3.33, +Troponin 0.049 Treatment: IVF Bolus, APAP suppository, IV Levofloxacin, IV Daptomycin, IV Zosyn, O2, Nebs, Risk Factors: Age, COPD, multiple possible sources of infection. Query #2/5 In your clinical opinion is this patient being managed for: ( ) Metabolic encephalopathy evidenced by lethargy and disorientation treated with electrolyte replacement, IVF's and IV antibiotics. ( ) Not Agree ( ) Other explanation of clinical findings (Please Explain) ( ) Unable to determine (Please Define) ( ) Need to Discuss The medical record reflects the following clinical findings, treatment, and risk factors. Clinical Indicators: Fever 38.9, tachycardia 100's, tachypnea 32, hypoxia 88%, Leukocytosis 20.58, acidosis VBG 7.30, ESR 49, CPR 3.33, hypophosphatemia 1.5, hypokalemia 3.4 Treatment: IVF Bolus, APAP suppository, IV Levofloxacin, IV Daptomycin, IV Zosyn, O2, Nebs, telemetry, I/O's, daily weights, WOCN consult, IV KPhos, Risk Factors: Age, infection, acidosis, abnormal electrolytes. Query #3/5 In your clinical opinion is this patient being managed for: ( ) Acute respiratory failure evidenced by lethargy RA hypoxia, respiratory acidosis, tachypnea, and tachycardia ( ) Not Agree ( ) Other explanation of clinical findings (Please Explain) ( ) Unable to determine (Please Define) ( ) Need to Discuss The medical record reflects the following clinical findings, treatment, and risk factors. Clinical Indicators: Tachycardia 100's, tachypnea 32, hypoxia 88%, Leukocytosis 20.58, respiratory acidosis by VBG 7.30/57/36/27. Treatment: CXR, Chest CT, VBG, O2, Nebs, Risk Factors: Age, COPD, ?acute bronchitis Query #4/5 ED physician notes a pressure ulcer. In your clinical opinion is this patient being managed for: ( ) Pressure ulcer to right foot ( ) Stage I ( ) Stage II ( ) Stage III ( ) Stage IV ( ) Unstageable ( ) Pressure ulcer to left buttocks ( ) Stage I ( ) Stage II ( ) Stage III ( ) Stage IV ( ) Unstageable ( ) Not Agree ( ) Other explanation of clinical findings (Please Explain) ( ) Unable to determine (Please Define) ( ) Need to Discuss The medical record reflects the following clinical findings, treatment, and risk factors. Clinical Indicators: As above. Nursing skin assessment reveals ulceration to right foot & left buttocks. Treatment: Nursing care, WOCN consult, 2Qhr repositioning Risk Factors: Age, Hx of pressure ulcer, frail condition Query #5/5 In your clinical opinion is this patient being managed for: ( ) COPD with Acute bronchitis ( ) Aspiration pneumonitis ( ) Not Agree ( ) Other explanation of clinical findings (Please Explain) ( ) Unable to determine (Please Define) ( ) Need to Discuss The medical record reflects the following clinical findings, treatment, and risk factors. Clinical Indicators: hypoxia 88%, tachypnea 32, leukocytosis 20.258, Chest CT showed minimal ground glass opacities within the lungs, including a 1.2 cm ground glass opacity within the right upper lobe. The findings suggest a mild infectious process such bronchiolitis. Treatment: IV Levofloxacin, IV Daptomycin, IV Zosyn, O2, Nebs, telemetry Risk Factors: Age, COPD, Please clarify and document your clinical opinion in the progress notes and discharge summary. Terms such as "probable", "suspected", "likely", "questionable", "possible", or "still to be ruled out" are acceptable. IF IN AGREEMENT, YOU MUST DOCUMENT ABOVE DIAGNOSTIC STATEMENT IN DAILY PROGRESS NOTES AND DISCHARGE SUMMARY. This document is not part of the patient's record. Thank You, Rafat Candelaria, OSMAR [phone]
[2017-01-14] MEDS ORDERED: FUROSEMIDE 40 MG TAB PO SCH (09:00)
[2017-01-14] MEDS: ARTIFICIAL TEARS OP SOLN OP SCH ×8 (10:20→20:09)
--- NOTE | 2017-01-14 10:33 | Medical Consult ---
Consultation Date of Consultation: Jan 14, 2017. Attending Physician: Gustavo Larkin M.D. Reason for Consultation: Broad-spectrum antibiotics-sepsis History of Present Illness 66-year-old male with complex medical history including severe peripheral arterial disease, status post vascular surgery in November, atrial fibrillation, left AKA, hypertension, hyperlipidemia, factor V Leiden mutation with history of DVT and pulmonary emboli who was admitted with 1 day history of fever, confusion, hypoxia with significant leukocytosis. He has been started on broad- spectrum antibiotics with combination of daptomycin, Zosyn, and levofloxacin. Chest x-ray, read by me, shows no obvious infiltrate, and CT scan only suggests possible bronchiolitis. Cultures are pending, negative to date. Urinalysis not suggestive of urinary tract infection. Patient has been complaining of pain in his left AKA site. 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 11) Severe PAD 12) L BKA 13) R iliac profundoplasty and stent 14) Chronic troponin elevation 15) Recurrent UTIs Family History FHx: ischemic heart disease Social History Smoking Status: Current Every Day Smoker Drug Use: none Marital Status: Housing Status: lives with significant other Occupation Status: disabled Allergies Coded Allergies: Neomycin (Verified Allergy, Intermediate, RED, SORE, 01/13/17) Bacitracin (Verified Allergy, Unknown, unknown, 01/13/17) Kiwi (Verified Allergy, Unknown, itchy, 01/13/17) Polymyxin B (Verified Allergy, Unknown, unknown, 01/13/17) Morphine (Verified Adverse Reaction, Intermediate, HALLUCINATION, CONFUSION,AGITATION, 01/13/17) Current Inpatient Medications Current Inpatient Medications Medications (Trade) Dose Ordered Sig/Emily Route Start Time Stop Time Status Last Admin Dose Admin Allopurinol (Zyloprim Tab) 100 mg QAM PO 01/14/17 09:00 02/13/17 08:59 01/14/17 08:02 100 MG Artificial Tears (Artificial Tears) 2 drops QID OP 01/14/17 09:00 02/13/17 08:59 01/14/17 10:20 2 DROPS Aspirin (Ecotrin Tab) 81 mg QAM PO 01/14/17 09:00 02/13/17 08:59 01/14/17 08:01 81 MG Carvedilol (Coreg Tab) 9.375 mg BID PO 01/14/17 09:00 02/13/17 08:59 01/14/17 08:03 9.375 MG Fentanyl (Duragesic Patch) 50 mcg Q72H TD 01/13/17 23:00 01/27/17 22:59 01/14/17 01:33 50 MCG Ferrous Sulfate (Feosol Tab) 325 mg BID PO 01/14/17 09:00 02/13/17 08:59 01/14/17 08:02 325 MG Salmeterol Xinafoate/ Fluticasone (Advair Diskus 500/50 Inh) 1 puff BID INH 01/14/17 09:00 02/13/17 08:59 01/14/17 08:00 1 PUFF Gabapentin (Neurontin Cap) 200 mg QAM PO 01/14/17 09:00 02/13/17 08:59 01/14/17 08:01 200 MG Gabapentin (Neurontin Cap) 600 mg HS PO 01/14/17 21:00 02/13/17 20:59 Isosorbide Mononitrate (Imdur Ext Rel Tab) 60 mg QAM PO 01/14/17 09:00 02/13/17 08:59 01/14/17 08:02 60 MG Lorazepam (Ativan Tab) 0.5 mg BID PRN PO 01/13/17 21:45 02/12/17 21:44 Losartan Potassium (coZAAR TAB) 25 mg QAM PO 01/14/17 09:00 02/13/17 08:59 01/14/17 08:04 25 MG Potassium Chloride (Klor-Con M10) 20 meq QAM PO 01/14/17 09:00 02/13/17 08:59 01/14/17 08:03 20 MEQ Ranitidine HCl (zANTac TAB) 150 mg BID PO 01/14/17 09:00 02/13/17 08:59 01/14/17 08:03 150 MG Rivaroxaban (Xarelto Tab) 20 mg HS PO 01/14/17 21:00 02/13/17 20:59 Sertraline HCl (Zoloft Tab) 200 mg QAM PO 01/14/17 09:00 02/13/17 08:59 01/14/17 08:01 200 MG Simvastatin (Zocor Tab) 40 mg QPM PO 01/14/17 21:00 02/13/17 20:59 Topiramate (Topamax Tab) 100 mg BID PO 01/14/17 09:00 02/13/17 08:59 01/14/17 08:04 100 MG Albuterol/ Ipratropium (Duoneb) 3 ml Q6R INH 01/14/17 03:00 02/13/17 02:59 01/14/17 07:10 3 ML Albuterol Sulfate (Ventolin 0.083% 2.5MG/3ML Neb) 2.5 mg Q4R PRN INH 01/13/17 21:45 02/12/17 21:44 Codeine Phosphate/ Guaifenesin (Robitussin-AC Sugar Free Syrup) 5 ml Q6H PRN PO 01/13/17 21:45 02/12/17 21:44 Acetaminophen (Tylenol Tab) 650 mg Q4H PRN PO 01/13/17 22:00 02/12/17 21:59 Al Hydrox/Mg Hydrox/Simethicone (Maalox Max Susp) 15 ml Q4H PRN PO 01/13/17 22:00 02/12/17 21:59 Magnesium Hydroxide (Milk Of Magnesia Susp) 30 ml Q12H PRN PO 01/13/17 22:00 02/12/17 21:59 Ondansetron HCl (Zofran Inj) 4 mg Q6H PRN IV 01/13/17 22:00 02/12/17 21:59 Nitroglycerin (Nitrostat Tab) 0.4 mg UD PRN SL 01/13/17 22:00 02/12/17 21:59 Morphine Sulfate (MoRPHine SULFATE INJ) 2 mg Q30M PRN IV 01/13/17 22:00 01/27/17 21:59 Polyethylene (Miralax Powder Packet) 17 gm DAILY PRN PO 01/13/17 22:00 02/12/17 21:59 Miscellaneous (Fentanyl Patch Remove & Waste) 1 ea Q3D N/A 01/13/17 22:59 02/12/17 22:58 01/13/17 23:06 1 EA Miscellaneous Information (Check Fentanyl Patch Placement) 1 ea QS N/A 01/14/17 08:00 02/13/17 07:59 01/14/17 08:19 1 EA Daptomycin 700 mg/ Sodium Chloride 64 ml @ 100 mls/hr Q24H IV 01/14/17 00:00 01/24/17 00:00 01/14/17 01:09 100 MLS/HR Levofloxacin 750 mg/Prmx 150 ml @ 100 mls/hr Q24H IV 01/14/17 20:00 01/20/17 19:59 Piperacillin Sod/ Tazobactam Sod 3.375 gm/Dextrose 115 ml @ 28.75 mls/ hr Q8H IV 01/14/17 06:00 01/21/17 05:59 01/14/17 05:38 28.75 MLS/HR Daptomycin (Consult) 1 ea UD PRN N/A 01/14/17 00:15 02/13/17 00:14 Piperacillin Sod/ Tazobactam Sod (Consult) 1 ea UD PRN N/A 01/14/17 00:15 02/13/17 00:14 Levofloxacin (Consult) 1 ea UD PRN N/A 01/14/17 00:15 02/13/17 00:14 Review of Systems Not obtainable because of patient's mental status Physical Exam Date Time Temp Pulse Resp B/P (MAP) Pulse Ox O2 Delivery O2 Flow Rate FiO2 01/14/17 08:00 37.2 82 20 117/69 (85) 01/14/17 08:00 97 Room Air 01/14/17 07:10 62 14 97 Nasal Cannula 2.0 01/14/17 04:00 Nasal Cannula 2.0 01/14/17 02:28 36.9 78 22 107/63 (78) 96 Nasal Cannula 2.0 01/14/17 00:00 Nasal Cannula 2.0 01/13/17 23:02 37.2 80 24 103/68 95 Nasal Cannula 2.0 01/13/17 22:12 37.3 80 28 87/68 98 01/13/17 21:58 37.3 80 28 87/68 98 Nasal Cannula 4.0 01/13/17 21:17 80 24 102/65 98 Nasal Cannula 4.0 01/13/17 20:22 Nasal Cannula 4.0 01/13/17 19:25 38.9 100 32 144/91 88 Room Air 01/13/17 19:23 100 General Appearance: WD/WN (.), no apparent distress, + pertinent finding ( Chronically ill-appearing) Head: normocephalic, atraumatic Eyes: normal inspection, EOMI, sclerae normal ENT: normal ENT inspection, pharynx normal Neck: supple, no adenopathy, thyroid normal, trachea midline Respiratory/Chest: chest non-tender, lungs clear, normal breath sounds, no respiratory distress Cardiovascular: no gallop, + systolic murmur, + irregularly irregular Abdomen/GI: normal bowel sounds, non tender, soft, no organomegaly (The) Genitourinary - Male: + pertinent finding (Rincon catheter in place, urine relatively clear) Back: normal inspection, no CVA tenderness Extremities/Musculoskelatal: + slow capillary refill, + pertinent finding ( Left AKA with tenderness distally, right lower leg and right foot ulcerations) Neurologic/Psych: alert, + disoriented Skin: no rash, + pertinent finding (To ulcerations right leg, some surrounding erythema of foot, erythema of distal left AKA area) Lymphatic: no adenopathy Laboratory Results Date/Time Source Procedure Growth Status 01/13/17 19:55 Blood Blood Culture Pending Received 01/13/17 19:38 Blood Blood Culture Pending Received Last 24 Hours Test 01/13/17 19:38 01/13/17 20:00 01/13/17 20:49 01/13/17 20:55 White Blood Count 20.58 K/uL Red Blood Count 3.88 M/uL Hemoglobin 13.2 g/dL Hematocrit 40.9 % Mean Corpuscular Volume 105.4 fL Mean Corpuscular Hemoglobin 34.0 pg Mean Corpuscular Hemoglobin Concent 32.3 g/dl Platelet Count 170 K/uL Mean Platelet Volume 9.5 fL Neutrophils (%) (Auto) 89.9 % Lymphocytes (%) (Auto) 3.5 % Monocytes (%) (Auto) 5.8 % Eosinophils (%) (Auto) 0.1 % Basophils (%) (Auto) 0.0 % Neutrophils # (Auto) 18.47 K/uL Lymphocytes # (Auto) 0.73 K/uL Monocytes # (Auto) 1.20 K/uL Eosinophils # (Auto) 0.02 K/uL Basophils # (Auto) 0.01 K/uL RDW Standard Deviation 51.3 fL RDW Coefficient of Variation 13.5 % Immature Granulocyte % (Auto) 0.7 % Immature Granulocyte # (Auto) 0.15 K/uL Erythrocyte Sedimentation Rate 49 mm/hr Sodium Level 140 mmol/L Potassium Level 3.4 mmol/L Chloride Level 109 mmol/L Carbon Dioxide Level 25 mmol/L Anion Gap 6.0 mmol/L Blood Urea Nitrogen 16 mg/dl Creatinine 1.30 mg/dl Est Creatinine Clear Calc Drug Dose 69.6 ml/min Estimated GFR () 65.0 Estimated GFR (Non- 56.1 BUN/Creatinine Ratio 12.5 Random Glucose 114 mg/dl Calcium Level 8.8 mg/dl Phosphorus Level 1.5 mg/dl Magnesium Level 2.0 mg/dl Total Bilirubin 0.9 mg/dl Aspartate Amino Transf (AST/SGOT) 21 U/L Alanine Aminotransferase (ALT/SGPT) 21 U/L Alkaline Phosphatase 90 U/L Total Creatine Kinase 61 U/L Creatine Kinase MB 1.3 ng/ml Creatine Kinase MB Ratio 2.1 Troponin I 0.049 ng/ml C-Reactive Protein 3.33 mg/dl Pro-B-Type Natriuretic Peptide 6869 pg/ml Total Protein 8.2 gm/dl Albumin 3.3 gm/dl Globulin 4.9 gm/dl Albumin/Globulin Ratio 0.7 Lipase 51 U/L Urine Color DK YELLOW Urine Appearance CLEAR Urine pH 7.0 Urine Specific Plato 1.020 Urine Protein NEG Urine Glucose (UA) NEG Urine Ketones TRACE Urine Occult Blood NEG Urine Nitrite NEG Urine Bilirubin NEG Urine Urobilinogen NEG Urine Leukocyte Esterase TRACE Urine WBC (Auto) 1-5 /hpf Urine RBC (Auto) 5-10 /hpf Urine Hyaline Casts (Auto) 1-5 /lpf Urine Epithelial Cells (Auto) 20-30 /lpf Urine Bacteria (Auto) NEG Prothrombin Time 12.0 SECONDS Prothromb Time International Ratio 1.1 Activated Partial Thromboplast Time 31.2 SECONDS Partial Thromboplastin Ratio 1.2 Venous Blood pH 7.30 Venous Blood Partial Pressure CO2 57 mmHg Venous Blood Partial Pressure O2 36 mmHg Venous Blood HCO3 27 mmol/L Venous Blood Oxygen Saturation 62.3 % Venous Blood Base Excess -0.5 mEq/L Bedside Lactic Acid Venous 1.22 mmol/L Test 01/14/17 06:53 01/14/17 10:13 White Blood Count 24.94 K/uL Red Blood Count 3.76 M/uL Hemoglobin 12.8 g/dL Hematocrit 39.3 % Mean Corpuscular Volume 104.5 fL Mean Corpuscular Hemoglobin 34.0 pg Mean Corpuscular Hemoglobin Concent 32.6 g/dl RDW Standard Deviation 50.8 fL RDW Coefficient of Variation 13.4 % Platelet Count 165 K/uL Mean Platelet Volume 9.9 fL Sodium Level 139 mmol/L Potassium Level 3.9 mmol/L Chloride Level 107 mmol/L Carbon Dioxide Level 24 mmol/L Anion Gap 8.0 mmol/L Blood Urea Nitrogen 17 mg/dl Creatinine 1.20 mg/dl Est Creatinine Clear Calc Drug Dose 75.1 ml/min Estimated GFR () 71.6 Estimated GFR (Non- 61.8 BUN/Creatinine Ratio 14.5 Random Glucose 115 mg/dl Calcium Level 8.8 mg/dl Phosphorus Level 3.4 mg/dl Magnesium Level 2.1 mg/dl Patient Name: PARVEEN DAVIS Unit Number: [id number] Dictated: 01/13/172232 Transcribed: 01/13/172232 [facility] Printed Date/Time: [~ rep prt dt]/[~ rep prt tm] [~ rep ct labl] - [~ rep ct ivnm] [facility] [place] [address] Dictated: 01/13/172232 Transcribed: 01/13/172232 [facility] Printed Date/Time: [~ rep prt dt]/[~ rep prt tm] [~ rep ct labl] - [~ rep ct ivnm] [~ rep ct add3]] CT OF THE CHEST WITHOUT IV CONTRAST CLINICAL HISTORY: Fever. Evaluate for occult pneumonia. COMPARISON STUDY: Chest CT August 20, 2015 and chest radiograph performed earlier today. CT DOSE: 1077.69 mGy.cm TECHNIQUE: Axial images of the chest were obtained without IV contrast. Images were reviewed in the axial, sagittal, and coronal planes. IV contrast was not administered for this examination. A dose lowering technique was utilized adhering to the principles of ALARA. FINDINGS: A left subclavian pacer/AICD is in place. The heart is moderately enlarged. There is no pericardial effusion. No enlarged axillary, mediastinal or hilar lymph nodes are present. No pneumothorax or pleural effusion is present. There is minimal pleural fluid or thickening along the left major fissure. This is diminished since prior exam. Lungs are suboptimally assessed due to respiratory motion. No confluent consolidation is present. A few groundglass opacities are noted within the lungs, including a 1.2 cm opacity within the right upper lobe shown image 115 and 301. There is mild bronchial wall thickening. There is minimal mucus within the airways. Mild upper lobe predominant paraseptal emphysema is present. A subacute fracture of the left 11th rib is noted. There are multiple old left-sided rib fractures. Postoperative findings involving the left T8-T9 neural foramen are unchanged. Mediastinal widening are noted as well as postsurgical findings consistent with bypass grafting. IMPRESSION: 1. No consolidation identified. Minimal groundglass opacities within the lungs, including a 1.2 cm ground glass opacity within the right upper lobe. The findings suggest a mild infectious process such bronchiolitis. A follow-up chest CT in 6 months to ensure resolution is recommended. 2. Moderate cardiomegaly and extensive coronary artery calcification. Electronically signed by: Sami Acuña M.D. 01/13/2017 10:46 PM Dictated Date/Time: 01/13/2017 10:33 PM The status of this report is Signed. Draft = Not yet reviewed or approved by Radiologist. Signed = Reviewed and approved by Radiologist. <AttendingPhy>Gustavo Larkin M.D.</AttendingPhy> <FamilyPhy>[facility]</ FamilyPhy> <PrimaryPhy>[facility]</PrimaryPhy> <UnitNumber>[id number]</ UnitNumber> <VisitNumber>[id number]</VisitNumber> <PatientName>PARVEEN DAVIS< /PatientName> <DateOfBirth>1950</DateOfBirth> <Location>[facility]</Location> < ServiceDate>01/13/17</ServiceDate> <MNE>ESINDI</MNE> <OrderingPhy>Gustavo Larkin M.D.</OrderingPhy> <OrderingPhyMNE>f rep ord dr gibson</OrderingPhyMNE> < DictatingPhyMNE>f rep dict dr gibson</DictatingPhyMNE> <CCListMNE>f rep ct paige</ CCListMNE> <AdmittingPhyMNE>f pt admit dr gibson</AdmittingPhyMNE> <AttendingPhyMNE >f pt attend dr gibson</AttendingPhyMNE> <ConsultingPhyMNE>f pt consult dr gibson</ConsultingPhyMNE> <FamilyPhyMNE>f pt fam dr gibson</FamilyPhyMNE> <OtherPhyMNE>f pt other dr gibson</OtherPhyMNE> < PrimaryPhyMNE>f pt prim care dr gibson</PrimaryPhyMNE> <ReferringPhyMNE>f pt referring dr gibson</ReferringPhyMNE> Assessment & Plan 66-year-old male with multiple medical comorbidities now with sepsis, suspect either right leg or foot or left AKA site source given lack of significant pulmonary findings on x-ray and lack of evidence of pyuria. Would continue patient on daptomycin and Zosyn pending further culture results. Would consider CT scan of left AKA site to assess for deeper infection. Will follow.
[2017-01-14] MEDS ORDERED: OPTIRAY 320 IV PRN ×2 (14:15→14:30)
--- NOTE | 2017-01-14 14:18 | Progress Note ---
Subjective Date of Service: Jan 14, 2017. Subjective Pt evaluation today including: conversation w/ patient, physical exam, chart review, lab review 66 yo male who is here for altered mental status with bacteremia, with likely source of infection by the left AKA. D/W Nurse, patient was confused and upset that he is in the hospital. When I saw the patient, he was calm, and smiled, he was not aware that he was in the hospital however. He denied any fever, chills, pain. He did state that his left AKA site is tender though and did not want me to touch it. Problem List Medical Problems: (1) Acute exacerbation of chronic low back pain Status: Acute (2) Cellulitis of right lower extremity Status: Acute (3) Fall Status: Acute (4) Pressure ulcer Status: Acute (5) Pulmonary edema Status: Acute (6) Sepsis Status: Acute Review of Systems Constitutional: + chills, No fever Eyes: No worsening of vision, No eye pain ENT: No hearing loss, No unusual epistaxis Respiratory: No cough, No sputum Cardiac: No chest pain, No orthopnea Abdomen: No pain Neurologic: No memory loss, No paralysis Heme: No abnormal bleeding/bruising Endo: No fatigue Skin: No rash, No itch All Other Systems: Reviewed and Negative Medications Current Inpatient Medications Medications (Trade) Dose Ordered Sig/Emily Route Start Time Stop Time Status Last Admin Dose Admin Allopurinol (Zyloprim Tab) 100 mg QAM PO 01/14/17 09:00 02/13/17 08:59 01/14/17 08:02 100 MG Artificial Tears (Artificial Tears) 2 drops QID OP 01/14/17 09:00 02/13/17 08:59 01/14/17 10:20 2 DROPS Aspirin (Ecotrin Tab) 81 mg QAM PO 01/14/17 09:00 02/13/17 08:59 01/14/17 08:01 81 MG Carvedilol (Coreg Tab) 9.375 mg BID PO 01/14/17 09:00 02/13/17 08:59 01/14/17 08:03 9.375 MG Fentanyl (Duragesic Patch) 50 mcg Q72H TD 01/13/17 23:00 01/27/17 22:59 01/14/17 01:33 50 MCG Ferrous Sulfate (Feosol Tab) 325 mg BID PO 01/14/17 09:00 02/13/17 08:59 01/14/17 08:02 325 MG Salmeterol Xinafoate/ Fluticasone (Advair Diskus 500/50 Inh) 1 puff BID INH 01/14/17 09:00 02/13/17 08:59 01/14/17 08:00 1 PUFF Gabapentin (Neurontin Cap) 200 mg QAM PO 01/14/17 09:00 02/13/17 08:59 01/14/17 08:01 200 MG Gabapentin (Neurontin Cap) 600 mg HS PO 01/14/17 21:00 02/13/17 20:59 Isosorbide Mononitrate (Imdur Ext Rel Tab) 60 mg QAM PO 01/14/17 09:00 02/13/17 08:59 01/14/17 08:02 60 MG Lorazepam (Ativan Tab) 0.5 mg BID PRN PO 01/13/17 21:45 02/12/17 21:44 Losartan Potassium (coZAAR TAB) 25 mg QAM PO 01/14/17 09:00 02/13/17 08:59 01/14/17 08:04 25 MG Potassium Chloride (Klor-Con M10) 20 meq QAM PO 01/14/17 09:00 02/13/17 08:59 01/14/17 08:03 20 MEQ Ranitidine HCl (zANTac TAB) 150 mg BID PO 01/14/17 09:00 02/13/17 08:59 01/14/17 08:03 150 MG Rivaroxaban (Xarelto Tab) 20 mg HS PO 01/14/17 21:00 02/13/17 20:59 Sertraline HCl (Zoloft Tab) 200 mg QAM PO 01/14/17 09:00 02/13/17 08:59 01/14/17 08:01 200 MG Simvastatin (Zocor Tab) 40 mg QPM PO 01/14/17 21:00 02/13/17 20:59 Topiramate (Topamax Tab) 100 mg BID PO 01/14/17 09:00 02/13/17 08:59 01/14/17 08:04 100 MG Albuterol/ Ipratropium (Duoneb) 3 ml Q6R INH 01/14/17 03:00 02/13/17 02:59 01/14/17 07:10 3 ML Albuterol Sulfate (Ventolin 0.083% 2.5MG/3ML Neb) 2.5 mg Q4R PRN INH 01/13/17 21:45 02/12/17 21:44 Codeine Phosphate/ Guaifenesin (Robitussin-AC Sugar Free Syrup) 5 ml Q6H PRN PO 01/13/17 21:45 02/12/17 21:44 Acetaminophen (Tylenol Tab) 650 mg Q4H PRN PO 01/13/17 22:00 02/12/17 21:59 Al Hydrox/Mg Hydrox/Simethicone (Maalox Max Susp) 15 ml Q4H PRN PO 01/13/17 22:00 02/12/17 21:59 Magnesium Hydroxide (Milk Of Magnesia Susp) 30 ml Q12H PRN PO 01/13/17 22:00 02/12/17 21:59 Ondansetron HCl (Zofran Inj) 4 mg Q6H PRN IV 01/13/17 22:00 02/12/17 21:59 Nitroglycerin (Nitrostat Tab) 0.4 mg UD PRN SL 01/13/17 22:00 02/12/17 21:59 Morphine Sulfate (MoRPHine SULFATE INJ) 2 mg Q30M PRN IV 01/13/17 22:00 01/27/17 21:59 Polyethylene (Miralax Powder Packet) 17 gm DAILY PRN PO 01/13/17 22:00 02/12/17 21:59 Miscellaneous (Fentanyl Patch Remove & Waste) 1 ea Q3D N/A 01/13/17 22:59 02/12/17 22:58 01/13/17 23:06 1 EA Miscellaneous Information (Check Fentanyl Patch Placement) 1 ea QS N/A 01/14/17 08:00 02/13/17 07:59 01/14/17 08:19 1 EA Daptomycin 700 mg/ Sodium Chloride 64 ml @ 100 mls/hr Q24H IV 01/14/17 00:00 01/24/17 00:00 01/14/17 01:09 100 MLS/HR Levofloxacin 750 mg/Prmx 150 ml @ 100 mls/hr Q24H IV 01/14/17 20:00 01/20/17 19:59 Piperacillin Sod/ Tazobactam Sod 3.375 gm/Dextrose 115 ml @ 28.75 mls/ hr Q8H IV 01/14/17 06:00 01/21/17 05:59 01/14/17 05:38 28.75 MLS/HR Daptomycin (Consult) 1 ea UD PRN N/A 01/14/17 00:15 02/13/17 00:14 Piperacillin Sod/ Tazobactam Sod (Consult) 1 ea UD PRN N/A 01/14/17 00:15 02/13/17 00:14 Levofloxacin (Consult) 1 ea UD PRN N/A 01/14/17 00:15 02/13/17 00:14 Ioversol (Optiray 320) 111 ml UD PRN IV 01/14/17 14:15 01/18/17 14:14 UNV Objective Vital Signs Date Time Temp Pulse Resp B/P (MAP) Pulse Ox O2 Delivery O2 Flow Rate FiO2 01/14/17 12:00 Nasal Cannula 2.0 01/14/17 11:07 36.8 67 18 133/78 (96) 100 2.0 01/14/17 08:00 37.2 82 20 117/69 (85) 01/14/17 08:00 97 Room Air 01/14/17 07:10 62 14 97 Nasal Cannula 2.0 01/14/17 04:00 Nasal Cannula 2.0 01/14/17 02:28 36.9 78 22 107/63 (78) 96 Nasal Cannula 2.0 01/14/17 00:00 Nasal Cannula 2.0 01/13/17 23:02 37.2 80 24 103/68 95 Nasal Cannula 2.0 01/13/17 22:12 37.3 80 28 87/68 98 01/13/17 21:58 37.3 80 28 87/68 98 Nasal Cannula 4.0 01/13/17 21:17 80 24 102/65 98 Nasal Cannula 4.0 01/13/17 20:22 Nasal Cannula 4.0 01/13/17 19:25 38.9 100 32 144/91 88 Room Air 01/13/17 19:23 100 Physical Exam General Appearance: WD/WN Eyes: PERRL, EOMI Neck: supple Respiratory/Chest: chest non-tender, lungs clear, normal breath sounds Cardiovascular: no edema, no gallop, + systolic murmur, + irregularly irregular Abdomen: normal bowel sounds, non tender, soft Extremities: normal range of motion, non-tender (except for L AKA site which has venous changes, is warm to touch and tender to palpation. There appears to be a fluctuance there.) Lymphatic: no adenopathy Comments: : aldrich in place. Laboratory Results Last 24 Hours Test 01/13/17 19:38 01/13/17 20:00 01/13/17 20:49 01/13/17 20:55 White Blood Count 20.58 K/uL Red Blood Count 3.88 M/uL Hemoglobin 13.2 g/dL Hematocrit 40.9 % Mean Corpuscular Volume 105.4 fL Mean Corpuscular Hemoglobin 34.0 pg Mean Corpuscular Hemoglobin Concent 32.3 g/dl Platelet Count 170 K/uL Mean Platelet Volume 9.5 fL Neutrophils (%) (Auto) 89.9 % Lymphocytes (%) (Auto) 3.5 % Monocytes (%) (Auto) 5.8 % Eosinophils (%) (Auto) 0.1 % Basophils (%) (Auto) 0.0 % Neutrophils # (Auto) 18.47 K/uL Lymphocytes # (Auto) 0.73 K/uL Monocytes # (Auto) 1.20 K/uL Eosinophils # (Auto) 0.02 K/uL Basophils # (Auto) 0.01 K/uL RDW Standard Deviation 51.3 fL RDW Coefficient of Variation 13.5 % Immature Granulocyte % (Auto) 0.7 % Immature Granulocyte # (Auto) 0.15 K/uL Erythrocyte Sedimentation Rate 49 mm/hr Sodium Level 140 mmol/L Potassium Level 3.4 mmol/L Chloride Level 109 mmol/L Carbon Dioxide Level 25 mmol/L Anion Gap 6.0 mmol/L Blood Urea Nitrogen 16 mg/dl Creatinine 1.30 mg/dl Est Creatinine Clear Calc Drug Dose 69.6 ml/min Estimated GFR () 65.0 Estimated GFR (Non- 56.1 BUN/Creatinine Ratio 12.5 Random Glucose 114 mg/dl Calcium Level 8.8 mg/dl Phosphorus Level 1.5 mg/dl Magnesium Level 2.0 mg/dl Total Bilirubin 0.9 mg/dl Aspartate Amino Transf (AST/SGOT) 21 U/L Alanine Aminotransferase (ALT/SGPT) 21 U/L Alkaline Phosphatase 90 U/L Total Creatine Kinase 61 U/L Creatine Kinase MB 1.3 ng/ml Creatine Kinase MB Ratio 2.1 Troponin I 0.049 ng/ml C-Reactive Protein 3.33 mg/dl Pro-B-Type Natriuretic Peptide 6869 pg/ml Total Protein 8.2 gm/dl Albumin 3.3 gm/dl Globulin 4.9 gm/dl Albumin/Globulin Ratio 0.7 Lipase 51 U/L Urine Color DK YELLOW Urine Appearance CLEAR Urine pH 7.0 Urine Specific [place] 1.020 Urine Protein NEG Urine Glucose (UA) NEG Urine Ketones TRACE Urine Occult Blood NEG Urine Nitrite NEG Urine Bilirubin NEG Urine Urobilinogen NEG Urine Leukocyte Esterase TRACE Urine WBC (Auto) 1-5 /hpf Urine RBC (Auto) 5-10 /hpf Urine Hyaline Casts (Auto) 1-5 /lpf Urine Epithelial Cells (Auto) 20-30 /lpf Urine Bacteria (Auto) NEG Prothrombin Time 12.0 SECONDS Prothromb Time International Ratio 1.1 Activated Partial Thromboplast Time 31.2 SECONDS Partial Thromboplastin Ratio 1.2 Venous Blood pH 7.30 Venous Blood Partial Pressure CO2 57 mmHg Venous Blood Partial Pressure O2 36 mmHg Venous Blood HCO3 27 mmol/L Venous Blood Oxygen Saturation 62.3 % Venous Blood Base Excess -0.5 mEq/L Bedside Lactic Acid Venous 1.22 mmol/L Test 01/14/17 06:53 01/14/17 10:54 White Blood Count 24.94 K/uL Red Blood Count 3.76 M/uL Hemoglobin 12.8 g/dL Hematocrit 39.3 % Mean Corpuscular Volume 104.5 fL Mean Corpuscular Hemoglobin 34.0 pg Mean Corpuscular Hemoglobin Concent 32.6 g/dl RDW Standard Deviation 50.8 fL RDW Coefficient of Variation 13.4 % Platelet Count 165 K/uL Mean Platelet Volume 9.9 fL Sodium Level 139 mmol/L Potassium Level 3.9 mmol/L Chloride Level 107 mmol/L Carbon Dioxide Level 24 mmol/L Anion Gap 8.0 mmol/L Blood Urea Nitrogen 17 mg/dl Creatinine 1.20 mg/dl Est Creatinine Clear Calc Drug Dose 75.1 ml/min Estimated GFR () 71.6 Estimated GFR (Non- 61.8 BUN/Creatinine Ratio 14.5 Random Glucose 115 mg/dl Calcium Level 8.8 mg/dl Phosphorus Level 3.4 mg/dl Magnesium Level 2.1 mg/dl Procalcitonin 11.68 ng/ml Assessment and Plan 66 y/o M with complex medical history including chronic systolic CHF, severe PAD , chronic AF, VT, Factor V Leiden mutation - resultant DVT/PE, HPL, HTN, chronic lower extremity ulcers, COPD. Resides at [facility] and was transferred to the ER yesterday due to lethargy, cough and persistent high fever. 1) Fever - likely source is the left AKA site - Erythema noted on LBKA with warmth, some fluctuance and tenderness to palpation -will order LEFT lower ex -culture shows gram negative bacilli. will stop levofloxacin and continue with dapto and zosyn 2) COPD -hypoxia improving - will provide duonebs/albuterol and an initial dose of Solumedrol. Continue prescribed inhalers. 3) Systolic CHF - cont ARB, Carvedilol. Patient does not appear to be dehydrated as no signs of ARTURO 4) CAD - Trop is elevated but represents a value below baseline - no evidence of ACS at present - cont B russ, ASA, Statin 5) AF - rate controlled - cont B russ - anticoagulated with Xarelto 6) PVD - Follows with vascular surgery and wound care - cont ASA 7) Factor V mutation - Hx DVT/PE - cont Xarelto 8) Gout - cont Allopurinol Continued [facility] stay due to: fever, multiple IV medications needed Discharge planning: uncertain
--- NOTE | 2017-01-14 17:11 | DIAGNOSTIC IMAGING REPORT ---
CT OF THE LEFT LOWER EXTREMITY WITH CONTRAST CLINICAL HISTORY: Wound site infection. Evaluate for deep infection. COMPARISON STUDY: CTA May 08, 2016. TECHNIQUE: Helical axial images of the left lower extremity were obtained following intravenous injection of 93 cc of Optiray 320 IV. Sagittal and coronal reconstructions were viewed. FINDINGS: Postoperative findings within the right groin are partially imaged on this examination. A Irn[place] catheter is present within the bladder. The prostate is surgically absent. There are findings consistent with a left below knee amputation. There is no evidence for osteomyelitis within the left lower extremity by CT. The postoperative appearance of the left tibia and fibula is unchanged since exam of May 08, 2016. There is subcutaneous infiltration of each lower extremity, right greater than left. Note is made of a 5.4 x 3.1 cm hyperdense subcutaneous fluid collection at the level of the amputation. This is new since exam of May 08, 2016. This does not have significant peripheral enhancement. No additional fluid collections are present on this examination. Extensive atherosclerotic plaque is noted. Vessels are suboptimally assessed on this non-CTA exam. Old left ischiopubic ring fractures are noted. IMPRESSION: 1. Status post left below knee amputation. No CT evidence of osteomyelitis within the left lower extremity. 5.4 x 3.1 cm subcutaneous hyperdense fluid collection at the level of the amputation which is new since exam of May 08, 2016. The CT appearance is nonspecific. A hematoma is favored although an abscess could appear similar. 2. Extensive subcutaneous edema of each lower extremity, right greater than left. Electronically signed by: Sami Acuña M.D. 01/14/2017 5:10 PM Dictated Date/Time: 01/14/2017 4:58 PM
[2017-01-14] MEDS: LORAZEPAM 0.5 MG TAB PO PRN (18:26)
[2017-01-14] MEDS ORDERED: NURSING VERBAL MED ORDER ONE (18:45)
[2017-01-14] MEDS: OXYCODONE HCL IR 5 MG TAB (IMMEDIATE RELEASE) PO PRN (18:48)
[2017-01-14] MEDS ORDERED: LEVOFLOXACIN / D5W 750 MG in PREMIXED IN D5W 150 ML IV SCH (20:00)
[2017-01-14] MEDS: GABAPENTIN 300 MG CAP PO SCH (20:06)
[2017-01-14] MEDS: SIMVASTATIN 40 MG TAB PO SCH (20:07)
[2017-01-14] MEDS ORDERED: RIVAROXABAN 10 MG TAB PO SCH (21:00)
[2017-01-15 00:10] VITALS: BP 131/82; PULSE 80; TEMP 36.9; O2SAT 98
[2017-01-15] MEDS: DAPTOmycin IV 700 MG in SODIUM CHLORIDE 0.9% 50ML 50 ML IV SCH (00:24)
[2017-01-15] MEDS: CHECK FENTANYL PATCH PLACEMENT SCH ×3 (00:26→16:00)
[2017-01-15] MEDS: ALBUT/IPRATROP 3MG/0.5MG NEB 3 ML VIAL INH SCH ×4 (01:41→21:00)
[2017-01-15] MEDS: OXYCODONE HCL IR 5 MG TAB (IMMEDIATE RELEASE) PO PRN ×2 (01:44→16:20)
[2017-01-15 03:35] VITALS: BP 112/78; PULSE 82; TEMP 37.4; O2SAT 96
[2017-01-15 04:00] VITALS: O2SAT 97
[2017-01-15] MEDS: PIPERACILL/TAZOBAC IV 3.375 GM in DEXTROSE 5% 100ML IV SCH ×3 (05:40→22:25)
[2017-01-15] MEDS ORDERED: LIDOCAINE HCL 2% 2 ML VIAL (20MG/ML) ONE (08:05)
[2017-01-15] MEDS ORDERED: PROPOFOL IV EMULSION 10 MG/ML 20 ML VIAL IV ONE (08:05)
[2017-01-15] MEDS ORDERED: DEXAMETHASONE SOD INJ 4 MG/ML VIAL ONE (08:05)
[2017-01-15] MEDS ORDERED: MIDAZOLAM HCL 1 MG/ML 2ML VIAL ONE (08:05)
[2017-01-15] MEDS ORDERED: ONDANSETRON INJ 2 MG/ML 2 ML VIAL ONE (08:05)
[2017-01-15] MEDS ORDERED: FENTANYL CITRATE INJ 50 MCG/1 ML 2 ML VIAL ONE (08:05)
[2017-01-15 08:10] VITALS: BP_SYST 108; BP_SYST 99; BP_DIAS 53; BP_DIAS 75; PULSE 80; TEMP 36.7; O2SAT 93
--- NOTE | 2017-01-15 08:11 | Medical Consult ---
Consultation Date of Consultation: Jan 15, 2017. Attending Physician: Arcadio Olsen M.D. History of Present Illness 66 y/o male admitted from [facility] for lethargy and fever. Has PVD, had left BKA years ago. Recent right iliac stent by Dr. Gomez 11/19. Was on Keflex for RLE wounds. Has erythema of of left BKA stump and [address] H/o MRSA. 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 11) Severe PAD 12) L BKA 13) R iliac profundoplasty and stent 14) Chronic troponin elevation 15) Recurrent UTIs Family History FHx: ischemic heart disease Social History Smoking Status: Current Every Day Smoker Drug Use: none Marital Status: Housing Status: lives with significant other Occupation Status: disabled Allergies Coded Allergies: Neomycin (Verified Allergy, Intermediate, RED, SORE, 01/13/17) Bacitracin (Verified Allergy, Unknown, unknown, 01/13/17) Kiwi (Verified Allergy, Unknown, itchy, 01/13/17) Polymyxin B (Verified Allergy, Unknown, unknown, 01/13/17) Morphine (Verified Adverse Reaction, Intermediate, HALLUCINATION, CONFUSION,AGITATION, 01/13/17) Current Inpatient Medications Current Inpatient Medications Medications (Trade) Dose Ordered Sig/Emily Route Start Time Stop Time Status Last Admin Dose Admin Allopurinol (Zyloprim Tab) 100 mg QAM PO 01/14/17 09:00 02/13/17 08:59 01/14/17 08:02 100 MG Artificial Tears (Artificial Tears) 2 drops QID OP 01/14/17 09:00 02/13/17 08:59 01/14/17 20:09 2 DROPS Aspirin (Ecotrin Tab) 81 mg QAM PO 01/14/17 09:00 02/13/17 08:59 01/14/17 08:01 81 MG Carvedilol (Coreg Tab) 9.375 mg BID PO 01/14/17 09:00 02/13/17 08:59 01/14/17 20:08 9.375 MG Fentanyl (Duragesic Patch) 50 mcg Q72H TD 01/13/17 23:00 01/27/17 22:59 01/14/17 01:33 50 MCG Ferrous Sulfate (Feosol Tab) 325 mg BID PO 01/14/17 09:00 02/13/17 08:59 01/14/17 20:05 325 MG Salmeterol Xinafoate/ Fluticasone (Advair Diskus 500/50 Inh) 1 puff BID INH 01/14/17 09:00 02/13/17 08:59 01/14/17 20:09 1 PUFF Gabapentin (Neurontin Cap) 200 mg QAM PO 01/14/17 09:00 02/13/17 08:59 01/14/17 08:01 200 MG Gabapentin (Neurontin Cap) 600 mg HS PO 01/14/17 21:00 02/13/17 20:59 01/14/17 20:06 600 MG Isosorbide Mononitrate (Imdur Ext Rel Tab) 60 mg QAM PO 01/14/17 09:00 02/13/17 08:59 01/14/17 08:02 60 MG Lorazepam (Ativan Tab) 0.5 mg BID PRN PO 01/13/17 21:45 02/12/17 21:44 01/14/17 18:26 0.5 MG Losartan Potassium (coZAAR TAB) 25 mg QAM PO 01/14/17 09:00 02/13/17 08:59 01/14/17 08:04 25 MG Potassium Chloride (Klor-Con M10) 20 meq QAM PO 01/14/17 09:00 02/13/17 08:59 01/14/17 08:03 20 MEQ Ranitidine HCl (zANTac TAB) 150 mg BID PO 01/14/17 09:00 02/13/17 08:59 01/14/17 20:06 150 MG Rivaroxaban (Xarelto Tab) 20 mg HS PO 01/14/17 21:00 02/13/17 20:59 01/14/17 20:07 20 MG Sertraline HCl (Zoloft Tab) 200 mg QAM PO 01/14/17 09:00 02/13/17 08:59 01/14/17 08:01 200 MG Simvastatin (Zocor Tab) 40 mg QPM PO 01/14/17 21:00 02/13/17 20:59 01/14/17 20:07 40 MG Topiramate (Topamax Tab) 100 mg BID PO 01/14/17 09:00 02/13/17 08:59 01/14/17 20:08 100 MG Albuterol/ Ipratropium (Duoneb) 3 ml Q6R INH 01/14/17 03:00 02/13/17 02:59 01/14/17 07:10 3 ML Albuterol Sulfate (Ventolin 0.083% 2.5MG/3ML Neb) 2.5 mg Q4R PRN INH 01/13/17 21:45 02/12/17 21:44 Codeine Phosphate/ Guaifenesin (Robitussin-AC Sugar Free Syrup) 5 ml Q6H PRN PO 01/13/17 21:45 02/12/17 21:44 Acetaminophen (Tylenol Tab) 650 mg Q4H PRN PO 01/13/17 22:00 02/12/17 21:59 Al Hydrox/Mg Hydrox/Simethicone (Maalox Max Susp) 15 ml Q4H PRN PO 01/13/17 22:00 02/12/17 21:59 Magnesium Hydroxide (Milk Of Magnesia Susp) 30 ml Q12H PRN PO 01/13/17 22:00 02/12/17 21:59 Ondansetron HCl (Zofran Inj) 4 mg Q6H PRN IV 01/13/17 22:00 02/12/17 21:59 Nitroglycerin (Nitrostat Tab) 0.4 mg UD PRN SL 01/13/17 22:00 02/12/17 21:59 Morphine Sulfate (MoRPHine SULFATE INJ) 2 mg Q30M PRN IV 01/13/17 22:00 01/27/17 21:59 Polyethylene (Miralax Powder Packet) 17 gm DAILY PRN PO 01/13/17 22:00 02/12/17 21:59 Miscellaneous (Fentanyl Patch Remove & Waste) 1 ea Q3D N/A 01/13/17 22:59 02/12/17 22:58 01/13/17 23:06 1 EA Miscellaneous Information (Check Fentanyl Patch Placement) 1 ea QS N/A 01/14/17 08:00 02/13/17 07:59 01/15/17 00:26 1 EA Daptomycin 700 mg/ Sodium Chloride 64 ml @ 100 mls/hr Q24H IV 01/14/17 00:00 01/24/17 00:00 01/15/17 00:24 100 MLS/HR Piperacillin Sod/ Tazobactam Sod 3.375 gm/Dextrose 115 ml @ 28.75 mls/ hr Q8H IV 01/14/17 06:00 01/21/17 05:59 01/15/17 05:40 28.75 MLS/HR Daptomycin (Consult) 1 ea UD PRN N/A 01/14/17 00:15 02/13/17 00:14 Piperacillin Sod/ Tazobactam Sod (Consult) 1 ea UD PRN N/A 01/14/17 00:15 02/13/17 00:14 Ioversol (Optiray 320) 125 ml UD PRN IV 01/14/17 14:30 01/18/17 14:29 Oxycodone HCl (Roxicodone Immediate Rel Tab) 5 mg Q6 PRN PO 01/14/17 18:45 01/28/17 18:44 01/15/17 01:44 5 MG Review of Systems Constitutional: + fever Physical Exam Date Time Temp Pulse Resp B/P (MAP) Pulse Ox O2 Delivery O2 Flow Rate FiO2 01/15/17 04:00 97 Room Air 01/15/17 03:35 37.4 82 20 112/78 (89) 96 Room Air 01/15/17 00:10 36.9 80 22 131/82 (98) 98 Room Air 01/14/17 23:59 97 Room Air 01/14/17 20:49 36.6 81 18 112/79 (90) 97 Room Air 01/14/17 20:00 Room Air 01/14/17 16:36 36.9 79 16 122/70 (87) 95 Nasal Cannula 2.0 01/14/17 16:00 Room Air 01/14/17 12:00 Nasal Cannula 2.0 01/14/17 11:07 36.8 67 18 133/78 (96) 100 2.0 General Appearance: no apparent distress Respiratory/Chest: no respiratory distress Cardiovascular: regular rate, rhythm Extremities/Musculoskelatal: + pedal edema (RLE, bandaged wounds RLE), + pertinent finding (erythema left BKA stump) Laboratory Results Last 24 Hours Test 01/14/17 10:54 Procalcitonin 11.68 ng/ml CT IMPRESSION: 1. Status post left below knee amputation. No CT evidence of osteomyelitis within the left lower extremity. 5.4 x 3.1 cm subcutaneous hyperdense fluid collection at the level of the amputation which is new since exam of May 08, 2016. The CT appearance is nonspecific. A hematoma is favored although an abscess could appear similar. 2. Extensive subcutaneous edema of each lower extremity, right greater than left. Electronically signed by: Sami Acuña M.D. 01/14/2017 5:10 PM Dictated Date/Time: 01/14/2017 4:58 PM Assessment & Plan left BKA stump abscess OR this AM for I&D of left BKA stump abscess possible wound vac in the next few days 01/15/17- examined pt, discussed with - Debra and pt- has edema, cellulitis and fluid collection Lt distal BKA- very tender. Admitted with confusion, fever, lethargy- suspected sepsi from abscess Lt BKA. For OR incision / drainage and culture- may need wound vac. Also discussed higher amputation if infection worsens or non healing. Will ask Dr Gomez to see him.
[2017-01-15] MEDS ORDERED: CEFOXITIN SOD 1 GM VIAL ONE (08:29)
[2017-01-15] MEDS: ARTIFICIAL TEARS OP SOLN OP SCH ×8 (09:00→21:00)
[2017-01-15] MEDS: GABAPENTIN 100 MG CAP PO SCH (09:00)
[2017-01-15] MEDS: RANITIDINE HCL 150 MG TAB PO SCH ×2 (09:00→21:00)
[2017-01-15] MEDS: FERROUS SULFATE 325 MG TAB PO SCH ×2 (09:00→21:00)
[2017-01-15] MEDS: FLUTICASONE/SALMETEROL (ADVAIR) 500/50 INH 14 PUFF INH SCH ×2 (09:00→21:02)
[2017-01-15] MEDS: ALLOPURINOL 100 MG TAB PO SCH (09:00)
[2017-01-15] MEDS: POTASSIUM CHLORIDE 10 MEQ TABCR PO SCH (09:00)
[2017-01-15] MEDS: TOPIRAMATE 100 MG TAB PO SCH ×2 (09:00→21:01)
--- NOTE | 2017-01-15 10:06 | OPERATIVE REPORT ---
DATE OF OPERATION: 01/15/2017 NAME OF OPERATION: Incision and drainage of left below knee amputation abscess with culture. STAFF SURGEON: Dr. Enmanuel Wills. CLOCK REPAIRER: Kellen Alvarez PA-C ANESTHESIA: General LMA. DESCRIPTION OF PROCEDURE: The patient was brought into the operating room and placed on the operating table in the supine position. His left BKA was then prepped and draped in the usual fashion. The patient had edema and cellulitis of the left leg with a CT scan showing what appeared to be a fluid collection in the lateral posterior leg below the subcutaneous tissue. Longitudinal incision was made laterally in the left BKA, lateral to the fibula, carrying dissection down through an ecchymotic tissue, which was also shown the skin to be ecchymotic. I entered the fascial plane and with the digital manipulation, I was able to encounter a cavity, which appeared to mimic the cavity noted on CAT scan, which traversed cephalad, inferiorly and posteriorly. There was some watery fluid within the cavity, which was cultured and my concern was developing fasciitis without any evidence of purulence. He also had no evidence of hematoma. The edges of the cavity seem secured to the surrounding tissue. The muscle was completely viable. There was no significant necrosis. Site was left open and packed. After appropriate irrigation with antibiotic solution, it was packed with antibiotic impregnated 4 x 4s and then a bulky dressing applied. The patient was then transferred to recovery room in stable condition. I attest to the content of the Intraoperative Record and any orders documented therein. Any exception s are noted below.
[2017-01-15] MEDS ORDERED: ONDANSETRON INJ 2 MG/ML 2 ML VIAL IV PRN (10:30)
[2017-01-15] MEDS ORDERED: ATROPINE SULFATE 0.1 MG/ML 5ML SYR IV PRN (10:30)
[2017-01-15] MEDS ORDERED: FENTANYL CITRATE INJ 50 MCG/1 ML 2 ML VIAL IV PRN (10:30)
[2017-01-15] MEDS ORDERED: EpHEDrine SULFATE INJ 50 MG/ML AMP IV PRN (10:30)
--- NOTE | 2017-01-15 10:32 | Anesthesiology Progress Note ---
Anesthesia Post Op Note Date & Time Jan 15, 2017 at 10:31 Vital Signs Pain Intensity: 0 Vital Signs Past 12 Hours Date Time Temp Pulse Resp B/P (MAP) Pulse Ox O2 Delivery O2 Flow Rate FiO2 01/15/17 10:25 36.1 76 15 94/58 98 Nasal Cannula 2 01/15/17 10:15 80 15 106/68 98 Nasal Cannula 2 01/15/17 10:10 83 14 87/61 95 Oxymask 10 01/15/17 10:00 80 16 96/80 92 Oxymask 10 01/15/17 09:53 36.6 95 16 114/68 98 Oxymask 10 01/15/17 08:10 36.7 80 20 99/53 (68) 93 Room Air 108/75 (86) 01/15/17 08:00 Room Air 01/15/17 04:00 97 Room Air 01/15/17 03:35 37.4 82 20 112/78 (89) 96 Room Air 01/15/17 00:10 36.9 80 22 131/82 (98) 98 Room Air 01/14/17 23:59 97 Room Air Notes Mental Status: alert / awake / arousable, participated in evaluation Pt Amnestic to Procedure: Yes Nausea / Vomiting: adequately controlled Pain: adequately controlled Airway Patency, RR, SpO2: stable & adequate BP & HR: stable & adequate Hydration State: stable & adequate Anesthetic Complications: no major complications apparent
--- NOTE | 2017-01-15 10:41 | Surgery Progress Note ---
Surgery Progress Note Date of Service Jan 15, 2017. Subjective pseudomonas in blood- no bact on U/A, Chest CT - no consolidation see A/P below Objective Vital Signs: Date Time Temp Pulse Resp B/P (MAP) Pulse Ox O2 Delivery O2 Flow Rate FiO2 01/15/17 10:25 36.1 76 15 94/58 98 Nasal Cannula 2 01/15/17 10:15 80 15 106/68 98 Nasal Cannula 2 01/15/17 10:10 83 14 87/61 95 Oxymask 10 01/15/17 10:00 80 16 96/80 92 Oxymask 10 01/15/17 09:53 36.6 95 16 114/68 98 Oxymask 10 01/15/17 08:10 36.7 80 20 99/53 (68) 93 Room Air 108/75 (86) 01/15/17 08:00 Room Air 01/15/17 04:00 97 Room Air 01/15/17 03:35 37.4 82 20 112/78 (89) 96 Room Air 01/15/17 00:10 36.9 80 22 131/82 (98) 98 Room Air 01/14/17 23:59 97 Room Air 01/14/17 20:49 36.6 81 18 112/79 (90) 97 Room Air 01/14/17 20:00 Room Air 01/14/17 16:36 36.9 79 16 122/70 (87) 95 Nasal Cannula 2.0 01/14/17 16:00 Room Air 01/14/17 12:00 Nasal Cannula 2.0 01/14/17 11:07 36.8 67 18 133/78 (96) 100 2.0 Laboratory Results: Results Past 24 Hours Test 01/14/17 10:54 Range/Units Procalcitonin 11.68 0-0.5 ng/ml Microbiology Results 01/15/17 Gram Stain, Received Pending 01/15/17 Bacterial Culture, Received Pending 01/15/17 Gram Stain, Received Pending 01/15/17 Bacterial Culture, Received Pending Assessment & Plan 01/15/17- s/p incision / drainage Lt BKA- cavity c/w CT- lateral / posterior leg no hematoma or purulence- watery/ edema fluid- ?early fasciitis- cult sent - doubt pseudomonas cavity lightly packed. ? infection could be Rt leg. ? other source for pseudomonas
--- NOTE | 2017-01-15 13:56 | Wound Consultation: Inpatient ---
Wound Consultation Date of Consultation: Jan 15, 2017. Attending Physician: Arcadio Olsen M.D. Reason for Consultation: Postoperative left BKA site History of Present Illness Patient received the request of Dr. Wills following an incision and drainage of an abscess at the left BKA amputation site. Patient currently has had no complaints of pain in this area. Patient was recently admitted a few days prior due to infection. Patient currently denies any chest pain, shortness of breath, abdominal discomfort, nausea, or vomiting. Patient denies any fever chills. Patient denies any other systemic complaints at this time. Family History FHx: ischemic heart disease Social History Smoking Status: Current Every Day Smoker Drug Use: none Marital Status: Housing Status: lives with significant other Occupation Status: disabled Allergies Coded Allergies: Neomycin (Verified Allergy, Intermediate, RED, SORE, 01/13/17) Bacitracin (Verified Allergy, Unknown, unknown, 01/13/17) Kiwi (Verified Allergy, Unknown, itchy, 01/13/17) Polymyxin B (Verified Allergy, Unknown, unknown, 01/13/17) Morphine (Verified Adverse Reaction, Intermediate, HALLUCINATION, CONFUSION,AGITATION, 01/13/17) Home Medications Scheduled Acetaminophen (Tylenol), 1,000 MG PO BID Allopurinol (Zyloprim), 100 MG PO QAM Artificial Tears (Artificial Tears), 1-2 DROPS OP QID Ascorbic Acid (Vitamin C), 500 MG PO QAM Aspirin (Aspirin Ec), 81 MG PO QAM Carvedilol (Carvedilol), 9.375 MG PO BID Fentanyl (Fentanyl), 50 MCG TD [id number] Ferrous Sulfate (Ferrous Sulfate), 325 MG PO BID Fluticasone Prop/Salmeterol (Advair Diskus 500/50 60 Dose), 1 PUFFS INH BID Furosemide (Lasix), 60 MG PO QAM Gabapentin (Neurontin), 200 MG PO QAM Gabapentin (Neurontin), 600 MG PO HS Ipratropium-Albuterol (Combivent Respimat), 1 PUFFS INH Q6H Isosorbide Mononitrate (Imdur Ext Rel), 60 MG PO QAM Losartan Potassium (Cozaar), 25 MG PO QAM Multiple Vitamins W/ Minerals (Thera M Plus), 1 TAB PO QAM Potassium Chloride (Micro-K Ext Rel), 20 MEQ PO QAM Ranitidine Hcl (Zantac), 150 MG PO BID Rivaroxaban (Xarelto), 20 MG PO HS Sertraline (Zoloft), 200 MG PO QAM Simvastatin (Zocor), 40 MG PO QPM Sodium Phosphate/Biphosphate (Fleet Enema), 1 EA ME DAILY Topiramate (Topamax), 100 MG PO BID Scheduled PRN Acetaminophen Tab (Tylenol), 325 MG PO Q6H PRN for Pain Aluminum/Magnesium/Simeth (Maalox Max Susp), 30 ML PO Q6H PRN for RN Guaifenesin (Robitussin), 10 ML PO Q6H PRN for Cough Lorazepam (Ativan), 0.5 MG PO BID PRN for Anxiety/Insomnia Magnesium Hydroxide (Milk Of Magnesia), 30 ML PO for Constipation Miscellaneous Medications Prune Juice (Prune Juice ), 8 OZ PO Inpatient Medications Current Inpatient Medications Medications (Trade) Dose Ordered Sig/Emily Route Start Time Stop Time Status Last Admin Dose Admin Allopurinol (Zyloprim Tab) 100 mg QAM PO 01/14/17 09:00 02/13/17 08:59 01/14/17 08:02 100 MG Artificial Tears (Artificial Tears) 2 drops QID OP 01/14/17 09:00 02/13/17 08:59 01/14/17 20:09 2 DROPS Aspirin (Ecotrin Tab) 81 mg QAM PO 01/14/17 09:00 02/13/17 08:59 01/14/17 08:01 81 MG Carvedilol (Coreg Tab) 9.375 mg BID PO 01/14/17 09:00 02/13/17 08:59 01/14/17 20:08 9.375 MG Fentanyl (Duragesic Patch) 50 mcg Q72H TD 01/13/17 23:00 01/27/17 22:59 01/14/17 01:33 50 MCG Ferrous Sulfate (Feosol Tab) 325 mg BID PO 01/14/17 09:00 02/13/17 08:59 01/14/17 20:05 325 MG Salmeterol Xinafoate/ Fluticasone (Advair Diskus 500/50 Inh) 1 puff BID INH 01/14/17 09:00 02/13/17 08:59 01/14/17 20:09 1 PUFF Gabapentin (Neurontin Cap) 200 mg QAM PO 01/14/17 09:00 02/13/17 08:59 01/14/17 08:01 200 MG Gabapentin (Neurontin Cap) 600 mg HS PO 01/14/17 21:00 02/13/17 20:59 01/14/17 20:06 600 MG Isosorbide Mononitrate (Imdur Ext Rel Tab) 60 mg QAM PO 01/14/17 09:00 02/13/17 08:59 01/14/17 08:02 60 MG Lorazepam (Ativan Tab) 0.5 mg BID PRN PO 01/13/17 21:45 02/12/17 21:44 01/14/17 18:26 0.5 MG Losartan Potassium (coZAAR TAB) 25 mg QAM PO 01/14/17 09:00 02/13/17 08:59 01/14/17 08:04 25 MG Potassium Chloride (Klor-Con M10) 20 meq QAM PO 01/14/17 09:00 02/13/17 08:59 01/14/17 08:03 20 MEQ Ranitidine HCl (zANTac TAB) 150 mg BID PO 01/14/17 09:00 02/13/17 08:59 01/14/17 20:06 150 MG Sertraline HCl (Zoloft Tab) 200 mg QAM PO 01/14/17 09:00 02/13/17 08:59 01/14/17 08:01 200 MG Simvastatin (Zocor Tab) 40 mg QPM PO 01/14/17 21:00 02/13/17 20:59 01/14/17 20:07 40 MG Topiramate (Topamax Tab) 100 mg BID PO 01/14/17 09:00 02/13/17 08:59 01/14/17 20:08 100 MG Albuterol/ Ipratropium (Duoneb) 3 ml Q6R INH 01/14/17 03:00 02/13/17 02:59 01/14/17 07:10 3 ML Albuterol Sulfate (Ventolin 0.083% 2.5MG/3ML Neb) 2.5 mg Q4R PRN INH 01/13/17 21:45 02/12/17 21:44 Codeine Phosphate/ Guaifenesin (Robitussin-AC Sugar Free Syrup) 5 ml Q6H PRN PO 01/13/17 21:45 02/12/17 21:44 Acetaminophen (Tylenol Tab) 650 mg Q4H PRN PO 01/13/17 22:00 02/12/17 21:59 Al Hydrox/Mg Hydrox/Simethicone (Maalox Max Susp) 15 ml Q4H PRN PO 01/13/17 22:00 02/12/17 21:59 Magnesium Hydroxide (Milk Of Magnesia Susp) 30 ml Q12H PRN PO 01/13/17 22:00 02/12/17 21:59 Ondansetron HCl (Zofran Inj) 4 mg Q6H PRN IV 01/13/17 22:00 02/12/17 21:59 Nitroglycerin (Nitrostat Tab) 0.4 mg UD PRN SL 01/13/17 22:00 02/12/17 21:59 Morphine Sulfate (MoRPHine SULFATE INJ) 2 mg Q30M PRN IV 01/13/17 22:00 01/27/17 21:59 Polyethylene (Miralax Powder Packet) 17 gm DAILY PRN PO 01/13/17 22:00 02/12/17 21:59 Miscellaneous (Fentanyl Patch Remove & Waste) 1 ea Q3D N/A 01/13/17 22:59 02/12/17 22:58 01/13/17 23:06 1 EA Miscellaneous Information (Check Fentanyl Patch Placement) 1 ea QS N/A 01/14/17 08:00 02/13/17 07:59 01/15/17 08:17 1 EA Daptomycin 700 mg/ Sodium Chloride 64 ml @ 100 mls/hr Q24H IV 01/14/17 00:00 01/24/17 00:00 01/15/17 00:24 100 MLS/HR Piperacillin Sod/ Tazobactam Sod 3.375 gm/Dextrose 115 ml @ 28.75 mls/ hr Q8H IV 01/14/17 06:00 01/21/17 05:59 01/15/17 05:40 28.75 MLS/HR Daptomycin (Consult) 1 ea UD PRN N/A 01/14/17 00:15 02/13/17 00:14 Piperacillin Sod/ Tazobactam Sod (Consult) 1 ea UD PRN N/A 01/14/17 00:15 02/13/17 00:14 Ioversol (Optiray 320) 125 ml UD PRN IV 01/14/17 14:30 01/18/17 14:29 Oxycodone HCl (Roxicodone Immediate Rel Tab) 5 mg Q6 PRN PO 01/14/17 18:45 01/28/17 18:44 01/15/17 01:44 5 MG Heparin Sodium (Porcine) (Heparin Sq 5000 Unit/0.5ml) 5,000 unit Q8 SQ 01/16/17 08:00 02/15/17 07:59 Fentanyl Citrate (Fentanyl Inj) 50 mcg Q5M PRN IV 01/15/17 10:30 01/15/17 15:30 Ondansetron HCl (Zofran Inj) 4 mg ONE PRN IV 01/15/17 10:30 01/15/17 15:30 Ephedrine Sulfate (EpHEDrine SULFATE INJ) 5 mg Q5M PRN IV 01/15/17 10:30 01/15/17 15:30 Atropine Sulfate (Atropine Sulfate 0.1MG/Ml Inj) 0.5 mg Q1M PRN IV 01/15/17 10:30 01/15/17 15:30 Physical Exam Date Time Temp Pulse Resp B/P (MAP) Pulse Ox O2 Delivery O2 Flow Rate FiO2 01/15/17 12:00 Room Air 01/15/17 10:25 36.1 76 15 94/58 98 Nasal Cannula 2 01/15/17 10:15 80 15 106/68 98 Nasal Cannula 2 01/15/17 10:10 83 14 87/61 95 Oxymask 10 01/15/17 10:00 80 16 96/80 92 Oxymask 10 01/15/17 09:53 36.6 95 16 114/68 98 Oxymask 10 01/15/17 08:10 36.7 80 20 99/53 (68) 93 Room Air 108/75 (86) 01/15/17 08:00 Room Air 01/15/17 04:00 97 Room Air 01/15/17 03:35 37.4 82 20 112/78 (89) 96 Room Air 01/15/17 00:10 36.9 80 22 131/82 (98) 98 Room Air 01/14/17 23:59 97 Room Air 01/14/17 20:49 36.6 81 18 112/79 (90) 97 Room Air 01/14/17 20:00 Room Air 01/14/17 16:36 36.9 79 16 122/70 (87) 95 Nasal Cannula 2.0 01/14/17 16:00 Room Air General: The patient is lying in a hospital bed in no distress. Alert, cooperative and appropriate to all questions. HEENT: Pupils equal and reactive to light. Sclera clear, EOM intact. Neck: Supple, No JVD noted Chest: CTA in all bautista. No deformity Heart: RRR without murmurs, S3, S4, thrills, rubs or heaves Extremities: There is a postoperative wound in the lateral aspect of the left BKA site. The area measures 8 x 1.5 x 1.5 with a 3 cm Tylenol at 12:00. Some minimal bleeding is present easily controlled with direct pressure. There is no evidence of any [place]. No periwound erythema or fluctuance noted. Neurological: Alert and oriented x3. No focal deficits. Assessment & Plan Assessment: Post op wound left BKA site Plan: At this time the site will be dressed with Jazmin packing followed by gauze secondary dressing. Adaptic touch will be placed in between the Jazmin and gauze dressings. Aller dressings may be changed daily or when necessary. It is anticipated that the patient will have a wound VAC application on Wednesday Black from 125 mm of negative pressure wound VAC change Wednesday. Patient will continue to be monitored during his hospital course and followed in the outpatient clinic upon discharge.
--- NOTE | 2017-01-15 14:43 | Infectious Disease Progress Nt ---
Progress Note Date of Service Jan 15, 2017. Subjective Pt evaluation today including: conversation w/ patient, conversation w/ family , physical exam, chart review, lab review, review of studies, conversation w/ economics consultant, review of inpatient medication list Recent events reviewed. CT scan showed collection at BKA site, now status post incision and drainage. No gross purulence. Blood cultures now positive for Pseudomonas. Currently afebrile and hemodynamically stable postop. All Other Systems: Reviewed and Negative Medications Current Inpatient Medications Medications (Trade) Dose Ordered Sig/Emily Route Start Time Stop Time Status Last Admin Dose Admin Allopurinol (Zyloprim Tab) 100 mg QAM PO 01/14/17 09:00 02/13/17 08:59 01/14/17 08:02 100 MG Artificial Tears (Artificial Tears) 2 drops QID OP 01/14/17 09:00 02/13/17 08:59 01/14/17 20:09 2 DROPS Aspirin (Ecotrin Tab) 81 mg QAM PO 01/14/17 09:00 02/13/17 08:59 01/14/17 08:01 81 MG Carvedilol (Coreg Tab) 9.375 mg BID PO 01/14/17 09:00 02/13/17 08:59 01/14/17 20:08 9.375 MG Fentanyl (Duragesic Patch) 50 mcg Q72H TD 01/13/17 23:00 01/27/17 22:59 01/14/17 01:33 50 MCG Ferrous Sulfate (Feosol Tab) 325 mg BID PO 01/14/17 09:00 02/13/17 08:59 01/14/17 20:05 325 MG Salmeterol Xinafoate/ Fluticasone (Advair Diskus 500/50 Inh) 1 puff BID INH 01/14/17 09:00 02/13/17 08:59 01/14/17 20:09 1 PUFF Gabapentin (Neurontin Cap) 200 mg QAM PO 01/14/17 09:00 02/13/17 08:59 01/14/17 08:01 200 MG Gabapentin (Neurontin Cap) 600 mg HS PO 01/14/17 21:00 02/13/17 20:59 01/14/17 20:06 600 MG Isosorbide Mononitrate (Imdur Ext Rel Tab) 60 mg QAM PO 01/14/17 09:00 02/13/17 08:59 01/14/17 08:02 60 MG Lorazepam (Ativan Tab) 0.5 mg BID PRN PO 01/13/17 21:45 02/12/17 21:44 01/14/17 18:26 0.5 MG Losartan Potassium (coZAAR TAB) 25 mg QAM PO 01/14/17 09:00 02/13/17 08:59 01/14/17 08:04 25 MG Potassium Chloride (Klor-Con M10) 20 meq QAM PO 01/14/17 09:00 02/13/17 08:59 01/14/17 08:03 20 MEQ Ranitidine HCl (zANTac TAB) 150 mg BID PO 01/14/17 09:00 02/13/17 08:59 01/14/17 20:06 150 MG Sertraline HCl (Zoloft Tab) 200 mg QAM PO 01/14/17 09:00 02/13/17 08:59 01/14/17 08:01 200 MG Simvastatin (Zocor Tab) 40 mg QPM PO 01/14/17 21:00 02/13/17 20:59 01/14/17 20:07 40 MG Topiramate (Topamax Tab) 100 mg BID PO 01/14/17 09:00 02/13/17 08:59 01/14/17 20:08 100 MG Albuterol/ Ipratropium (Duoneb) 3 ml Q6R INH 01/14/17 03:00 02/13/17 02:59 01/14/17 07:10 3 ML Albuterol Sulfate (Ventolin 0.083% 2.5MG/3ML Neb) 2.5 mg Q4R PRN INH 01/13/17 21:45 02/12/17 21:44 Codeine Phosphate/ Guaifenesin (Robitussin-AC Sugar Free Syrup) 5 ml Q6H PRN PO 01/13/17 21:45 02/12/17 21:44 Acetaminophen (Tylenol Tab) 650 mg Q4H PRN PO 01/13/17 22:00 02/12/17 21:59 Al Hydrox/Mg Hydrox/Simethicone (Maalox Max Susp) 15 ml Q4H PRN PO 01/13/17 22:00 02/12/17 21:59 Magnesium Hydroxide (Milk Of Magnesia Susp) 30 ml Q12H PRN PO 01/13/17 22:00 02/12/17 21:59 Ondansetron HCl (Zofran Inj) 4 mg Q6H PRN IV 01/13/17 22:00 02/12/17 21:59 Nitroglycerin (Nitrostat Tab) 0.4 mg UD PRN SL 01/13/17 22:00 02/12/17 21:59 Morphine Sulfate (MoRPHine SULFATE INJ) 2 mg Q30M PRN IV 01/13/17 22:00 01/27/17 21:59 Polyethylene (Miralax Powder Packet) 17 gm DAILY PRN PO 01/13/17 22:00 02/12/17 21:59 Miscellaneous (Fentanyl Patch Remove & Waste) 1 ea Q3D N/A 01/13/17 22:59 02/12/17 22:58 01/13/17 23:06 1 EA Miscellaneous Information (Check Fentanyl Patch Placement) 1 ea QS N/A 01/14/17 08:00 02/13/17 07:59 01/15/17 08:17 1 EA Daptomycin 700 mg/ Sodium Chloride 64 ml @ 100 mls/hr Q24H IV 01/14/17 00:00 01/24/17 00:00 01/15/17 00:24 100 MLS/HR Piperacillin Sod/ Tazobactam Sod 3.375 gm/Dextrose 115 ml @ 28.75 mls/ hr Q8H IV 01/14/17 06:00 01/21/17 05:59 01/15/17 05:40 28.75 MLS/HR Daptomycin (Consult) 1 ea UD PRN N/A 01/14/17 00:15 02/13/17 00:14 Piperacillin Sod/ Tazobactam Sod (Consult) 1 ea UD PRN N/A 01/14/17 00:15 02/13/17 00:14 Ioversol (Optiray 320) 125 ml UD PRN IV 01/14/17 14:30 01/18/17 14:29 Oxycodone HCl (Roxicodone Immediate Rel Tab) 5 mg Q6 PRN PO 01/14/17 18:45 01/28/17 18:44 01/15/17 01:44 5 MG Heparin Sodium (Porcine) (Heparin Sq 5000 Unit/0.5ml) 5,000 unit Q8 SQ 01/16/17 08:00 02/15/17 07:59 Fentanyl Citrate (Fentanyl Inj) 50 mcg Q5M PRN IV 01/15/17 10:30 01/15/17 15:30 Ondansetron HCl (Zofran Inj) 4 mg ONE PRN IV 01/15/17 10:30 01/15/17 15:30 Ephedrine Sulfate (EpHEDrine SULFATE INJ) 5 mg Q5M PRN IV 01/15/17 10:30 01/15/17 15:30 Atropine Sulfate (Atropine Sulfate 0.1MG/Ml Inj) 0.5 mg Q1M PRN IV 01/15/17 10:30 01/15/17 15:30 Objective Vital Signs Date Time Temp Pulse Resp B/P (MAP) Pulse Ox O2 Delivery O2 Flow Rate FiO2 01/15/17 12:00 Room Air 01/15/17 10:25 36.1 76 15 94/58 98 Nasal Cannula 2 01/15/17 10:15 80 15 106/68 98 Nasal Cannula 2 01/15/17 10:10 83 14 87/61 95 Oxymask 10 01/15/17 10:00 80 16 96/80 92 Oxymask 10 01/15/17 09:53 36.6 95 16 114/68 98 Oxymask 10 01/15/17 08:10 36.7 80 20 99/53 (68) 93 Room Air 108/75 (86) 01/15/17 08:00 Room Air 01/15/17 04:00 97 Room Air 01/15/17 03:35 37.4 82 20 112/78 (89) 96 Room Air 01/15/17 00:10 36.9 80 22 131/82 (98) 98 Room Air 01/14/17 23:59 97 Room Air 01/14/17 20:49 36.6 81 18 112/79 (90) 97 Room Air 01/14/17 20:00 Room Air 01/14/17 16:36 36.9 79 16 122/70 (87) 95 Nasal Cannula 2.0 01/14/17 16:00 Room Air Physical Exam General Appearance: WD/WN, no apparent distress Eyes: normal inspection, EOMI, sclerae normal ENT: normal ENT inspection, pharynx normal Neck: supple, thyroid normal, trachea midline Respiratory/Chest: chest non-tender, lungs clear, normal breath sounds, no respiratory distress Cardiovascular: regular rate, rhythm, no gallop, no murmur Abdomen: normal bowel sounds, non tender, soft, no organomegaly Extremities: + pertinent finding (Surgical dressing intact) Neurologic/Psychiatric: alert, oriented x 3 Skin: normal color, no rash Lymphatic: no adenopathy Laboratory Results RUN DATE: 01/15/17 [facility] LAB PAGE 1 RUN TIME: 814 Specimen Inquiry PATIENT: PARVEEN DAVIS LOC: [facility] U # : [id number] AGE/SX: 66/M ROOM: [facility] [place] REG : 01/13/[address]: Arcadio Olsen M.D. : 1950 BED: 1 DIS : STATUS: ADM IN TLOC: SPEC #: [id number] LANDEN: 01/13/17 STATUS: RES REQ #: [id number] RECD: 01/13/[address]: Cooper Natarajan DO SOURCE: BLOOD ENTR: 01/13/17-1939 HUGO SPEARS: Clarita Solorzano [facility]: ORDERED: BLOOD CULTURE Procedure Result Verified Site BLD CULT Preliminary 01/15/17 Organism 1 PROBABLE PSEUDOMONAS SPECIES SENS NO SENSITIVITY TO FOLLOW Phoned Positive Blood Culture Gram Stain Report to BOB PUGA on 01/14/17 At 1655 By JENNIFER. Results were verbalized back to JENNIFER. PLEASE SEE CULTURE NUMBER [id number] FOR SENSITIVITIES. Assessment and Plan 66-year-old male with multiple medical comorbidities now with Pseudomonal sepsis , likely from leg infection, now s/p debridement. Will continue on Zosyn, likely d/c daptomycin after today. Will follow.
[2017-01-15 15:39] VITALS: BP 110/70; PULSE 70; TEMP 36.9; O2SAT 95
[2017-01-15] MEDS: CARVEDILOL 3.125 MG TAB PO SCH ×2 (16:18→21:02)
[2017-01-15] MEDS: LOSARTAN POTASSIUM 25 MG TAB PO SCH (16:18)
[2017-01-15] MEDS: ASPIRIN 81 MG ECTAB PO SCH (16:18)
[2017-01-15] MEDS: ISOSORBIDE MONONITRATE 60 MG TABCR PO SCH (16:18)
[2017-01-15] MEDS: SERTRALINE HCL 100 MG TAB PO SCH (16:19)
[2017-01-15 20:23] VITALS: BP 102/59; PULSE 78; TEMP 36.7; O2SAT 98
[2017-01-15] MEDS: GABAPENTIN 300 MG CAP PO SCH (21:00)
[2017-01-15] MEDS: SIMVASTATIN 40 MG TAB PO SCH (21:01)
[2017-01-16] VITALS (8 sets, daily range): BP systolic 95–128; BP diastolic 60–76; PULSE 65–76; TEMP 36.5–37.3; O2SAT 90–96
[2017-01-16] MEDS: CHECK FENTANYL PATCH PLACEMENT SCH ×3 (00:22→16:00)
[2017-01-16] MEDS: DAPTOmycin IV 700 MG in SODIUM CHLORIDE 0.9% 50ML 50 ML IV SCH (00:34)
[2017-01-16] MEDS: ALBUT/IPRATROP 3MG/0.5MG NEB 3 ML VIAL INH SCH ×4 (03:00→19:51)
--- NOTE | 2017-01-16 05:12 | Surgery Progress Note ---
Surgery Progress Note Date of Service Jan 16, 2017. Subjective min Lt BKA pain unless probing wound bleeding has subsided Objective Vital Signs: Date Time Temp Pulse Resp B/P (MAP) Pulse Ox O2 Delivery O2 Flow Rate FiO2 01/16/17 04:00 Room Air 01/16/17 00:09 36.7 76 14 95/60 (72) 90 Room Air 01/15/17 23:59 Room Air 01/15/17 20:23 36.7 78 18 102/59 (73) 98 Room Air 01/15/17 20:00 Room Air 01/15/17 16:00 Room Air 01/15/17 15:39 36.9 70 18 110/70 (83) 95 Nasal Cannula 2.0 01/15/17 12:00 Room Air 01/15/17 10:25 36.1 76 15 94/58 98 Nasal Cannula 2 01/15/17 10:15 80 15 106/68 98 Nasal Cannula 2 01/15/17 10:10 83 14 87/61 95 Oxymask 10 01/15/17 10:00 80 16 96/80 92 Oxymask 10 01/15/17 09:53 36.6 95 16 114/68 98 Oxymask 10 01/15/17 08:10 36.7 80 20 99/53 (68) 93 Room Air 108/75 (86) 01/15/17 08:00 Room Air General Appearance: no apparent distress Incision(s): drainage (from Lt BKA much less) Laboratory Results: Results Past 24 Hours Test 01/16/17 04:44 Range/Units Microbiology Results 01/15/17 Gram Stain - Final, Resulted 01/15/17 Bacterial Culture, Resulted Pending 01/15/17 Gram Stain - Final, Resulted 01/15/17 Bacterial Culture, Resulted Pending Assessment & Plan 01/16/17- s/p incision/drainage Lt BKA - cult pending, much less bleeding- hold Xarelto and subcu hep- dressing chgs as needed 01/15/17- s/p incision / drainage Lt BKA- cavity c/w CT- lateral / posterior leg no hematoma or purulence- watery/ edema fluid- ?early fasciitis- cult sent - doubt pseudomonas cavity lightly packed. ? infection could be Rt leg. ? other source for pseudomonas 01/15/17- s/p incision / drainage Lt BKA- cavity c/w CT- lateral / posterior leg no hematoma or purulence- watery/ edema fluid- ?early fasciitis- cult sent - doubt pseudomonas cavity lightly packed. ? infection could be Rt leg. ? other source for pseudomonas
[2017-01-16] MEDS: PIPERACILL/TAZOBAC IV 3.375 GM in DEXTROSE 5% 100ML IV SCH (05:41)
[2017-01-16 06:18] LABS: HEMATOCRIT 30.6 % (42-52); MEAN CELL VOLUME 104.8 fL (80-100); MEAN CORPUSCULAR HEMOGLOBIN 34.2 pg (25-34); MEAN CORPUSCULAR HGB CONC 32.7 g/dl (32-36); MEAN PLATELET VOLUME 9.8 fL (7.4-10.4); PLATELET COUNT 138 K/uL (130-400); RED BLOOD COUNT 2.92 M/uL (4.7-6.1); WHITE BLOOD COUNT 12.05 K/uL (4.8-10.8)
[2017-01-16 06:47] LABS: BUN/CREATININE RATIO 16.3 (10-20); CALCIUM 8.2 mg/dl (8.5-10.1); CREATININE 0.97 mg/dl (0.60-1.40); POTASSIUM 3.5 mmol/L (3.5-5.1)
[2017-01-16] MEDS: BOOST PLUS VANILLA PO SCH ×4 (07:00→14:00)
[2017-01-16] MEDS: HEPARIN SOD 5000 UNIT/0.5 ML CARP SQ SCH ×3 (08:00→22:00)
--- NOTE | 2017-01-16 08:41 | Progress Note ---
Subjective Date of Service: Jan 15, 2017. Seen at 19:00 Subjective Pt evaluation today including: conversation w/ patient, physical exam, chart review, lab review Patient reports that his pain is not managed after having the left BKA I and D. Patient is requesting increased pain medicine. Aside from the pain, patient denies, fever, chills, nausea, vomiting. Problem List Medical Problems: (1) Acute exacerbation of chronic low back pain Status: Acute (2) Cellulitis of right lower extremity Status: Acute (3) Fall Status: Acute (4) Pressure ulcer Status: Acute (5) Pulmonary edema Status: Acute (6) Sepsis Status: Acute Review of Systems Constitutional: No fever, No chills Respiratory: No cough, No sputum Cardiac: No chest pain, No orthopnea Abdomen: No pain, No nausea Musculoskeletal: + joint pain Neurologic: No memory loss, No paralysis Endo: + fatigue Skin: No rash, No itch All Other Systems: Reviewed and Negative Medications Current Inpatient Medications Medications (Trade) Dose Ordered Sig/Emily Route Start Time Stop Time Status Last Admin Dose Admin Allopurinol (Zyloprim Tab) 100 mg QAM PO 01/14/17 09:00 02/13/17 08:59 01/16/17 12:06 100 MG Artificial Tears (Artificial Tears) 2 drops QID OP 01/14/17 09:00 02/13/17 08:59 01/16/17 21:09 2 DROPS Aspirin (Ecotrin Tab) 81 mg QAM PO 01/14/17 09:00 02/13/17 08:59 01/16/17 12:06 81 MG Carvedilol (Coreg Tab) 9.375 mg BID PO 01/14/17 09:00 02/13/17 08:59 01/16/17 21:10 9.375 MG Fentanyl (Duragesic Patch) 50 mcg Q72H TD 01/13/17 23:00 01/27/17 22:59 01/16/17 23:02 50 MCG Ferrous Sulfate (Feosol Tab) 325 mg BID PO 01/14/17 09:00 02/13/17 08:59 01/16/17 21:10 325 MG Salmeterol Xinafoate/ Fluticasone (Advair Diskus 500/50 Inh) 1 puff BID INH 01/14/17 09:00 02/13/17 08:59 01/16/17 21:09 1 PUFF Gabapentin (Neurontin Cap) 200 mg QAM PO 01/14/17 09:00 02/13/17 08:59 01/16/17 12:06 200 MG Gabapentin (Neurontin Cap) 600 mg HS PO 01/14/17 21:00 02/13/17 20:59 01/16/17 21:11 600 MG Isosorbide Mononitrate (Imdur Ext Rel Tab) 60 mg QAM PO 01/14/17 09:00 02/13/17 08:59 01/16/17 11:30 60 MG Lorazepam (Ativan Tab) 0.5 mg BID PRN PO 01/13/17 21:45 02/12/17 21:44 01/14/17 18:26 0.5 MG Losartan Potassium (coZAAR TAB) 25 mg QAM PO 01/14/17 09:00 02/13/17 08:59 01/16/17 12:07 25 MG Potassium Chloride (Klor-Con M10) 20 meq QAM PO 01/14/17 09:00 02/13/17 08:59 01/16/17 11:30 20 MEQ Ranitidine HCl (zANTac TAB) 150 mg BID PO 01/14/17 09:00 02/13/17 08:59 01/16/17 21:11 150 MG Sertraline HCl (Zoloft Tab) 200 mg QAM PO 01/14/17 09:00 02/13/17 08:59 01/16/17 12:06 200 MG Simvastatin (Zocor Tab) 40 mg QPM PO 01/14/17 21:00 02/13/17 20:59 01/16/17 21:11 40 MG Topiramate (Topamax Tab) 100 mg BID PO 01/14/17 09:00 02/13/17 08:59 01/16/17 21:11 100 MG Albuterol/ Ipratropium (Duoneb) 3 ml Q6R INH 01/14/17 03:00 02/13/17 02:59 01/16/17 14:01 3 ML Albuterol Sulfate (Ventolin 0.083% 2.5MG/3ML Neb) 2.5 mg Q4R PRN INH 01/13/17 21:45 02/12/17 21:44 Codeine Phosphate/ Guaifenesin (Robitussin-AC Sugar Free Syrup) 5 ml Q6H PRN PO 01/13/17 21:45 02/12/17 21:44 Acetaminophen (Tylenol Tab) 650 mg Q4H PRN PO 01/13/17 22:00 02/12/17 21:59 Al Hydrox/Mg Hydrox/Simethicone (Maalox Max Susp) 15 ml Q4H PRN PO 01/13/17 22:00 02/12/17 21:59 Magnesium Hydroxide (Milk Of Magnesia Susp) 30 ml Q12H PRN PO 01/13/17 22:00 02/12/17 21:59 Ondansetron HCl (Zofran Inj) 4 mg Q6H PRN IV 01/13/17 22:00 02/12/17 21:59 Nitroglycerin (Nitrostat Tab) 0.4 mg UD PRN SL 01/13/17 22:00 02/12/17 21:59 Morphine Sulfate (MoRPHine SULFATE INJ) 2 mg Q30M PRN IV 01/13/17 22:00 01/27/17 21:59 Polyethylene (Miralax Powder Packet) 17 gm DAILY PRN PO 01/13/17 22:00 02/12/17 21:59 Miscellaneous (Fentanyl Patch Remove & Waste) 1 ea Q3D N/A 01/13/17 22:59 02/12/17 22:58 01/16/17 23:03 1 EA Miscellaneous Information (Check Fentanyl Patch Placement) 1 ea QS N/A 01/14/17 08:00 02/13/17 07:59 01/16/17 16:00 1 EA Ioversol (Optiray 320) 125 ml UD PRN IV 01/14/17 14:30 01/18/17 14:29 Heparin Sodium (Porcine) (Heparin Sq 5000 Unit/0.5ml) 5,000 unit Q8 SQ 01/16/17 08:00 02/15/17 07:59 Enteral Nutritional Formula (Boost Plus Vanilla) 1 can [id number] PO 01/16/17 07:00 02/15/17 06:59 Oxycodone HCl (Roxicodone Immediate Rel Tab) 10 mg Q6 PRN PO 01/15/17 19:00 01/28/17 18:44 01/16/17 17:42 10 MG Imipenem/ Cilastatin Sodium 500 mg/Dextrose 110 ml @ 110 mls/hr Q6H IV 01/16/17 10:00 01/30/17 09:59 01/16/17 22:47 110 MLS/HR Objective Vital Signs Date Time Temp Pulse Resp B/P (MAP) Pulse Ox O2 Delivery O2 Flow Rate FiO2 01/16/17 05:00 36.8 74 16 99/60 (73) 93 Room Air 01/16/17 04:00 Room Air 01/16/17 00:09 36.7 76 14 95/60 (72) 90 Room Air 01/15/17 23:59 Room Air 01/15/17 20:23 36.7 78 18 102/59 (73) 98 Room Air 01/15/17 20:00 Room Air 01/15/17 16:00 Room Air 01/15/17 15:39 36.9 70 18 110/70 (83) 95 Nasal Cannula 2.0 01/15/17 12:00 Room Air 01/15/17 10:25 36.1 76 15 94/58 98 Nasal Cannula 2 01/15/17 10:15 80 15 106/68 98 Nasal Cannula 2 01/15/17 10:10 83 14 87/61 95 Oxymask 10 01/15/17 10:00 80 16 96/80 92 Oxymask 10 01/15/17 09:53 36.6 95 16 114/68 98 Oxymask 10 Physical Exam Comments: General Appearance: WD/WN Eyes: PERRL, EOMI Neck: supple Respiratory/Chest: chest non-tender, lungs clear, normal breath sounds Cardiovascular: no edema, no gallop, + systolic murmur, + irregularly irregular Abdomen: normal bowel sounds, non tender, soft Extremities: normal range of motion, non-tender, dry dressing on L BKA I and D wound Lymphatic: no adenopathy Comments: : aldrich in place. Laboratory Results Last 24 Hours Test 01/16/17 05:25 White Blood Count 12.05 K/uL Red Blood Count 2.92 M/uL Hemoglobin 10.0 g/dL Hematocrit 30.6 % Mean Corpuscular Volume 104.8 fL Mean Corpuscular Hemoglobin 34.2 pg Mean Corpuscular Hemoglobin Concent 32.7 g/dl RDW Standard Deviation 51.5 fL RDW Coefficient of Variation 13.4 % Platelet Count 138 K/uL Mean Platelet Volume 9.8 fL Sodium Level 142 mmol/L Potassium Level 3.5 mmol/L Chloride Level 110 mmol/L Carbon Dioxide Level 27 mmol/L Anion Gap 5.0 mmol/L Blood Urea Nitrogen 16 mg/dl Creatinine 0.97 mg/dl Est Creatinine Clear Calc Drug Dose 93.0 ml/min Estimated GFR () 92.6 Estimated GFR (Non- 79.9 BUN/Creatinine Ratio 16.3 Random Glucose 135 mg/dl Calcium Level 8.2 mg/dl Assessment and Plan 66 y/o M with complex medical history including chronic systolic CHF, severe PAD , chronic AF, VT, Factor V Leiden mutation - resultant DVT/PE, HPL, HTN, chronic lower extremity ulcers, COPD. Resides at [facility] and was transferred to the ER due to lethargy, cough and persistent high fever. 1) Fever - likely source is the left BKA site - CT scan confirmed pocket of fluid. -Consulted Gen. Surgery and patient had an I and D -Patient will need wound vac but will not be available until Wednesday. Patient is anticoagulated and will continue to have bleeding at the wound. -culture shows gram negative bacilli. will continue with dapto and zosyn. 2) COPD -hypoxia improving - will provide duonebs/albuterol and an initial dose of Solumedrol. Continue prescribed inhalers. 3) Systolic CHF - cont ARB, Carvedilol. Patient does not appear to be dehydrated as no signs of ARTURO 4) CAD - Trop is elevated but represents a value below baseline - no evidence of ACS at present - cont B russ, ASA, Statin 5) AF - rate controlled - cont B russ - anticoagulated with Xarelto 6) PVD - Follows with vascular surgery and wound care - cont ASA 7) Factor V mutation - Hx DVT/PE - cont Xarelto 8) Gout - cont Allopurinol Continued [facility] stay due to: fever, multiple IV medications needed Discharge planning: uncertain
[2017-01-16] MEDS: ARTIFICIAL TEARS OP SOLN OP SCH ×8 (09:00→21:09)
[2017-01-16] MEDS: IMIPENEM/CILASTATIN IV 500 MG in D5W 100ML IV SCH ×3 (10:47→22:47)
[2017-01-16] MEDS: ISOSORBIDE MONONITRATE 60 MG TABCR PO SCH (11:30)
[2017-01-16] MEDS: POTASSIUM CHLORIDE 10 MEQ TABCR PO SCH (11:30)
[2017-01-16] MEDS: RANITIDINE HCL 150 MG TAB PO SCH ×2 (12:06→21:11)
[2017-01-16] MEDS: SERTRALINE HCL 100 MG TAB PO SCH (12:06)
[2017-01-16] MEDS: FLUTICASONE/SALMETEROL (ADVAIR) 500/50 INH 14 PUFF INH SCH ×2 (12:06→21:09)
[2017-01-16] MEDS: GABAPENTIN 100 MG CAP PO SCH (12:06)
[2017-01-16] MEDS: TOPIRAMATE 100 MG TAB PO SCH ×2 (12:06→21:11)
[2017-01-16] MEDS: FERROUS SULFATE 325 MG TAB PO SCH ×2 (12:06→21:10)
[2017-01-16] MEDS: ALLOPURINOL 100 MG TAB PO SCH (12:06)
[2017-01-16] MEDS: ASPIRIN 81 MG ECTAB PO SCH (12:06)
[2017-01-16] MEDS: CARVEDILOL 3.125 MG TAB PO SCH ×2 (12:07→21:10)
[2017-01-16] MEDS: LOSARTAN POTASSIUM 25 MG TAB PO SCH (12:07)
--- NOTE | 2017-01-16 17:00 | Infectious Disease Progress Nt ---
Progress Note Date of Service Jan 16, 2017. Subjective Pt evaluation today including: conversation w/ patient, physical exam, chart review, lab review, review of studies, conversation w/ eyewear consultant, review of inpatient medication list Patient states that left BKA site paint spray tender, rated 3/10 in intensity. Currently afebrile. Blood cultures have grown Zosyn resistant Pseudomonas. Now changed to imipenem. All Other Systems: Reviewed and Negative Medications Current Inpatient Medications Medications (Trade) Dose Ordered Sig/Emily Route Start Time Stop Time Status Last Admin Dose Admin Allopurinol (Zyloprim Tab) 100 mg QAM PO 01/14/17 09:00 02/13/17 08:59 01/16/17 12:06 100 MG Artificial Tears (Artificial Tears) 2 drops QID OP 01/14/17 09:00 02/13/17 08:59 01/14/17 20:09 2 DROPS Aspirin (Ecotrin Tab) 81 mg QAM PO 01/14/17 09:00 02/13/17 08:59 01/16/17 12:06 81 MG Carvedilol (Coreg Tab) 9.375 mg BID PO 01/14/17 09:00 02/13/17 08:59 01/16/17 12:07 9.375 MG Fentanyl (Duragesic Patch) 50 mcg Q72H TD 01/13/17 23:00 01/27/17 22:59 01/14/17 01:33 50 MCG Ferrous Sulfate (Feosol Tab) 325 mg BID PO 01/14/17 09:00 02/13/17 08:59 01/16/17 12:06 325 MG Salmeterol Xinafoate/ Fluticasone (Advair Diskus 500/50 Inh) 1 puff BID INH 01/14/17 09:00 02/13/17 08:59 01/16/17 12:06 1 PUFF Gabapentin (Neurontin Cap) 200 mg QAM PO 01/14/17 09:00 02/13/17 08:59 01/16/17 12:06 200 MG Gabapentin (Neurontin Cap) 600 mg HS PO 01/14/17 21:00 02/13/17 20:59 01/15/17 21:00 600 MG Isosorbide Mononitrate (Imdur Ext Rel Tab) 60 mg QAM PO 01/14/17 09:00 02/13/17 08:59 01/15/17 16:18 60 MG Lorazepam (Ativan Tab) 0.5 mg BID PRN PO 01/13/17 21:45 02/12/17 21:44 01/14/17 18:26 0.5 MG Losartan Potassium (coZAAR TAB) 25 mg QAM PO 01/14/17 09:00 02/13/17 08:59 01/16/17 12:07 25 MG Potassium Chloride (Klor-Con M10) 20 meq QAM PO 01/14/17 09:00 02/13/17 08:59 01/14/17 08:03 20 MEQ Ranitidine HCl (zANTac TAB) 150 mg BID PO 01/14/17 09:00 02/13/17 08:59 01/16/17 12:06 150 MG Sertraline HCl (Zoloft Tab) 200 mg QAM PO 01/14/17 09:00 02/13/17 08:59 01/16/17 12:06 200 MG Simvastatin (Zocor Tab) 40 mg QPM PO 01/14/17 21:00 02/13/17 20:59 01/15/17 21:01 40 MG Topiramate (Topamax Tab) 100 mg BID PO 01/14/17 09:00 02/13/17 08:59 01/16/17 12:06 100 MG Albuterol/ Ipratropium (Duoneb) 3 ml Q6R INH 01/14/17 03:00 02/13/17 02:59 01/16/17 14:01 3 ML Albuterol Sulfate (Ventolin 0.083% 2.5MG/3ML Neb) 2.5 mg Q4R PRN INH 01/13/17 21:45 02/12/17 21:44 Codeine Phosphate/ Guaifenesin (Robitussin-AC Sugar Free Syrup) 5 ml Q6H PRN PO 01/13/17 21:45 02/12/17 21:44 Acetaminophen (Tylenol Tab) 650 mg Q4H PRN PO 01/13/17 22:00 02/12/17 21:59 Al Hydrox/Mg Hydrox/Simethicone (Maalox Max Susp) 15 ml Q4H PRN PO 01/13/17 22:00 02/12/17 21:59 Magnesium Hydroxide (Milk Of Magnesia Susp) 30 ml Q12H PRN PO 01/13/17 22:00 02/12/17 21:59 Ondansetron HCl (Zofran Inj) 4 mg Q6H PRN IV 01/13/17 22:00 02/12/17 21:59 Nitroglycerin (Nitrostat Tab) 0.4 mg UD PRN SL 01/13/17 22:00 02/12/17 21:59 Morphine Sulfate (MoRPHine SULFATE INJ) 2 mg Q30M PRN IV 01/13/17 22:00 01/27/17 21:59 Polyethylene (Miralax Powder Packet) 17 gm DAILY PRN PO 01/13/17 22:00 02/12/17 21:59 Miscellaneous (Fentanyl Patch Remove & Waste) 1 ea Q3D N/A 01/13/17 22:59 02/12/17 22:58 01/13/17 23:06 1 EA Miscellaneous Information (Check Fentanyl Patch Placement) 1 ea QS N/A 01/14/17 08:00 02/13/17 07:59 01/16/17 08:00 1 EA Ioversol (Optiray 320) 125 ml UD PRN IV 01/14/17 14:30 01/18/17 14:29 Heparin Sodium (Porcine) (Heparin Sq 5000 Unit/0.5ml) 5,000 unit Q8 SQ 01/16/17 08:00 02/15/17 07:59 Enteral Nutritional Formula (Boost Plus Vanilla) 1 can [id number] PO 01/16/17 07:00 02/15/17 06:59 Oxycodone HCl (Roxicodone Immediate Rel Tab) 10 mg Q6 PRN PO 01/15/17 19:00 01/28/17 18:44 Imipenem/ Cilastatin Sodium 500 mg/Dextrose 110 ml @ 110 mls/hr Q6H IV 01/16/17 10:00 01/30/17 09:59 01/16/17 10:47 110 MLS/HR Objective Vital Signs Date Time Temp Pulse Resp B/P (MAP) Pulse Ox O2 Delivery O2 Flow Rate FiO2 01/16/17 15:28 36.5 71 18 128/76 (93) 95 Room Air 01/16/17 14:04 67 14 94 Room Air 01/16/17 12:00 Room Air 01/16/17 11:55 36.7 66 20 109/66 (80) 96 Room Air 01/16/17 08:00 Room Air 01/16/17 07:32 36.8 67 20 112/72 (85) 94 01/16/17 05:00 36.8 74 16 99/60 (73) 93 Room Air 01/16/17 04:00 Room Air 01/16/17 00:09 36.7 76 14 95/60 (72) 90 Room Air 01/15/17 23:59 Room Air 01/15/17 20:23 36.7 78 18 102/59 (73) 98 Room Air 01/15/17 20:00 Room Air Physical Exam General Appearance: WD/WN, no apparent distress, + pertinent finding ( Chronically ill-appearing) Eyes: normal inspection, EOMI, sclerae normal ENT: normal ENT inspection, hearing grossly normal, pharynx normal Neck: supple, no adenopathy, trachea midline Respiratory/Chest: chest non-tender, lungs clear, normal breath sounds, no respiratory distress Cardiovascular: no gallop, + systolic murmur, + irregularly irregular Abdomen: normal bowel sounds, non tender, soft, no organomegaly Extremities: + slow capillary refill, + pertinent finding ( tenderness at left BKA surgical site, no purulence) Neurologic/Psychiatric: alert, oriented x 3 Skin: normal color, no rash, + pertinent finding ( right leg ulcerations unchanged) Lymphatic: no adenopathy Laboratory Results RUN DATE: 01/16/17 [facility] PAGE 1 RUN TIME: 737 Specimen Inquiry PATIENT: PARVEEN DAVIS LOC: [facility] U # : [id number] AGE/SX: 66/M ROOM: [facility] REG : 01/13/[address]: Arcdaio Olsen M.D. : 1950 BED: 1 DIS : STATUS: ADM IN TLOC: SPEC #: [id number] LANDEN: 01/13/17 STATUS: COMP REQ #: [id number] RECD: 01/13/[address]: Cooper Natarajan DO SOURCE: BLOOD ENTR: 01/13/[address]: Clarita Solorzano SPDC: ORDERED: BLOOD CULTURE Procedure Result Verified Site BLD CULT Final 01/16/17 Organism 1 PSEUDOMONAS AERUGINOSA SENS SENSITIVITY TO FOLLOW Phoned Positive Blood Culture Gram Stain Report to MAYA ADHIKARI on 01/14/17 At 1356 By LAURA. Results were verbalized back to LAURA. 1. PSEUDOMONAS AERUGINOSA Target Route Dose RX AB Cost M.I.C. IQ ------ ----- ------ -- ------ -------- - ------ CEFTAZIDIME R >16 CEFEPIME R >16 IMIPENEM S 2 AZTREONAM R >16 GENTAMICIN S <=4 TOBRAMYCIN S <=4 AMIKACIN S <=16 CIPROFLOXACIN S <=1 LEVOFLOXACIN S <=2 PIP/TAZO R >64 S = SENSITIVE I = INTERMEDIATE R = RESISTANT Last 24 Hours Test 01/16/17 05:25 White Blood Count 12.05 K/uL Red Blood Count 2.92 M/uL Hemoglobin 10.0 g/dL Hematocrit 30.6 % Mean Corpuscular Volume 104.8 fL Mean Corpuscular Hemoglobin 34.2 pg Mean Corpuscular Hemoglobin Concent 32.7 g/dl RDW Standard Deviation 51.5 fL RDW Coefficient of Variation 13.4 % Platelet Count 138 K/uL Mean Platelet Volume 9.8 fL Sodium Level 142 mmol/L Potassium Level 3.5 mmol/L Chloride Level 110 mmol/L Carbon Dioxide Level 27 mmol/L Anion Gap 5.0 mmol/L Blood Urea Nitrogen 16 mg/dl Creatinine 0.97 mg/dl Est Creatinine Clear Calc Drug Dose 93.0 ml/min Estimated GFR () 92.6 Estimated GFR (Non- 79.9 BUN/Creatinine Ratio 16.3 Random Glucose 135 mg/dl Calcium Level 8.2 mg/dl Assessment and Plan 66-year-old male with multiple medical comorbidities now with Pseudomonal sepsis , likely from leg infection, now s/p debridement. patient will be continued on imipenem, will follow clinical response for determination of length of therapy. Will follow.
[2017-01-16] MEDS: OXYCODONE HCL IR 5 MG TAB (IMMEDIATE RELEASE) PO PRN (17:42)
--- NOTE | 2017-01-16 18:15 | Progress Note ---
Subjective Date of Service: Jan 16, 2017. Subjective Pt evaluation today including: conversation w/ patient, physical exam, chart review, lab review 66 yo male who is here for sepsis with likely source from infected BKA stump abscess s/p I and D.. Patient is less confused as per day nurse. Nurse states bleeding less at BKA I and D site. Surgery held Xarelto. Patient reports doing well, and states that his pain is better controled after having his oxy increased to 10mg. Problem List Medical Problems: (1) Acute exacerbation of chronic low back pain Status: Acute (2) Cellulitis of right lower extremity Status: Acute (3) Fall Status: Acute (4) Pressure ulcer Status: Acute (5) Pulmonary edema Status: Acute (6) Sepsis Status: Acute Review of Systems Constitutional: No fever, No chills Respiratory: No cough, No sputum Cardiac: No chest pain, No orthopnea Abdomen: No pain, No nausea Neurologic: No paralysis Psychiatric: No depression symptoms, No anhedonism Skin: No rash, No itch All Other Systems: Reviewed and Negative Medications Current Inpatient Medications Medications (Trade) Dose Ordered Sig/Emily Route Start Time Stop Time Status Last Admin Dose Admin Allopurinol (Zyloprim Tab) 100 mg QAM PO 01/14/17 09:00 02/13/17 08:59 01/16/17 12:06 100 MG Artificial Tears (Artificial Tears) 2 drops QID OP 01/14/17 09:00 02/13/17 08:59 01/16/17 21:09 2 DROPS Aspirin (Ecotrin Tab) 81 mg QAM PO 01/14/17 09:00 02/13/17 08:59 01/16/17 12:06 81 MG Carvedilol (Coreg Tab) 9.375 mg BID PO 01/14/17 09:00 02/13/17 08:59 01/16/17 21:10 9.375 MG Fentanyl (Duragesic Patch) 50 mcg Q72H TD 01/13/17 23:00 01/27/17 22:59 01/16/17 23:02 50 MCG Ferrous Sulfate (Feosol Tab) 325 mg BID PO 01/14/17 09:00 02/13/17 08:59 01/16/17 21:10 325 MG Salmeterol Xinafoate/ Fluticasone (Advair Diskus 500/50 Inh) 1 puff BID INH 01/14/17 09:00 02/13/17 08:59 01/16/17 21:09 1 PUFF Gabapentin (Neurontin Cap) 200 mg QAM PO 01/14/17 09:00 02/13/17 08:59 01/16/17 12:06 200 MG Gabapentin (Neurontin Cap) 600 mg HS PO 01/14/17 21:00 02/13/17 20:59 01/16/17 21:11 600 MG Isosorbide Mononitrate (Imdur Ext Rel Tab) 60 mg QAM PO 01/14/17 09:00 02/13/17 08:59 01/16/17 11:30 60 MG Lorazepam (Ativan Tab) 0.5 mg BID PRN PO 01/13/17 21:45 02/12/17 21:44 01/14/17 18:26 0.5 MG Losartan Potassium (coZAAR TAB) 25 mg QAM PO 01/14/17 09:00 02/13/17 08:59 01/16/17 12:07 25 MG Potassium Chloride (Klor-Con M10) 20 meq QAM PO 01/14/17 09:00 02/13/17 08:59 01/16/17 11:30 20 MEQ Ranitidine HCl (zANTac TAB) 150 mg BID PO 01/14/17 09:00 02/13/17 08:59 01/16/17 21:11 150 MG Sertraline HCl (Zoloft Tab) 200 mg QAM PO 01/14/17 09:00 02/13/17 08:59 01/16/17 12:06 200 MG Simvastatin (Zocor Tab) 40 mg QPM PO 01/14/17 21:00 02/13/17 20:59 01/16/17 21:11 40 MG Topiramate (Topamax Tab) 100 mg BID PO 01/14/17 09:00 02/13/17 08:59 01/16/17 21:11 100 MG Albuterol/ Ipratropium (Duoneb) 3 ml Q6R INH 01/14/17 03:00 02/13/17 02:59 01/16/17 14:01 3 ML Albuterol Sulfate (Ventolin 0.083% 2.5MG/3ML Neb) 2.5 mg Q4R PRN INH 01/13/17 21:45 02/12/17 21:44 Codeine Phosphate/ Guaifenesin (Robitussin-AC Sugar Free Syrup) 5 ml Q6H PRN PO 01/13/17 21:45 02/12/17 21:44 Acetaminophen (Tylenol Tab) 650 mg Q4H PRN PO 01/13/17 22:00 02/12/17 21:59 Al Hydrox/Mg Hydrox/Simethicone (Maalox Max Susp) 15 ml Q4H PRN PO 01/13/17 22:00 02/12/17 21:59 Magnesium Hydroxide (Milk Of Magnesia Susp) 30 ml Q12H PRN PO 01/13/17 22:00 02/12/17 21:59 Ondansetron HCl (Zofran Inj) 4 mg Q6H PRN IV 01/13/17 22:00 02/12/17 21:59 Nitroglycerin (Nitrostat Tab) 0.4 mg UD PRN SL 01/13/17 22:00 02/12/17 21:59 Morphine Sulfate (MoRPHine SULFATE INJ) 2 mg Q30M PRN IV 01/13/17 22:00 01/27/17 21:59 Polyethylene (Miralax Powder Packet) 17 gm DAILY PRN PO 01/13/17 22:00 02/12/17 21:59 Miscellaneous (Fentanyl Patch Remove & Waste) 1 ea Q3D N/A 01/13/17 22:59 02/12/17 22:58 01/16/17 23:03 1 EA Miscellaneous Information (Check Fentanyl Patch Placement) 1 ea QS N/A 01/14/17 08:00 02/13/17 07:59 01/16/17 16:00 1 EA Ioversol (Optiray 320) 125 ml UD PRN IV 01/14/17 14:30 01/18/17 14:29 Heparin Sodium (Porcine) (Heparin Sq 5000 Unit/0.5ml) 5,000 unit Q8 SQ 01/16/17 08:00 02/15/17 07:59 Enteral Nutritional Formula (Boost Plus Vanilla) 1 can [id number] PO 01/16/17 07:00 02/15/17 06:59 Oxycodone HCl (Roxicodone Immediate Rel Tab) 10 mg Q6 PRN PO 01/15/17 19:00 01/28/17 18:44 01/16/17 17:42 10 MG Imipenem/ Cilastatin Sodium 500 mg/Dextrose 110 ml @ 110 mls/hr Q6H IV 01/16/17 10:00 01/30/17 09:59 01/16/17 22:47 110 MLS/HR Objective Vital Signs Date Time Temp Pulse Resp B/P (MAP) Pulse Ox O2 Delivery O2 Flow Rate FiO2 01/16/17 15:28 36.5 71 18 128/76 (93) 95 Room Air 01/16/17 14:04 67 14 94 Room Air 01/16/17 12:00 Room Air 01/16/17 11:55 36.7 66 20 109/66 (80) 96 Room Air 01/16/17 08:00 Room Air 01/16/17 07:32 36.8 67 20 112/72 (85) 94 01/16/17 05:00 36.8 74 16 99/60 (73) 93 Room Air 01/16/17 04:00 Room Air 01/16/17 00:09 36.7 76 14 95/60 (72) 90 Room Air 01/15/17 23:59 Room Air 01/15/17 20:23 36.7 78 18 102/59 (73) 98 Room Air 01/15/17 20:00 Room Air Physical Exam Comments: General Appearance: WD/WN Eyes: PERRL, EOMI Neck: supple Respiratory/Chest: chest non-tender, lungs clear, normal breath sounds Cardiovascular: no edema, no gallop, + systolic murmur, + irregularly irregular Abdomen: normal bowel sounds, non tender, soft Extremities: normal range of motion, non-tender, dry dressing on L BKA I and D wound Lymphatic: no adenopathy Comments: : aldrich in place. Laboratory Results Last 24 Hours Test 01/16/17 05:25 White Blood Count 12.05 K/uL Red Blood Count 2.92 M/uL Hemoglobin 10.0 g/dL Hematocrit 30.6 % Mean Corpuscular Volume 104.8 fL Mean Corpuscular Hemoglobin 34.2 pg Mean Corpuscular Hemoglobin Concent 32.7 g/dl RDW Standard Deviation 51.5 fL RDW Coefficient of Variation 13.4 % Platelet Count 138 K/uL Mean Platelet Volume 9.8 fL Sodium Level 142 mmol/L Potassium Level 3.5 mmol/L Chloride Level 110 mmol/L Carbon Dioxide Level 27 mmol/L Anion Gap 5.0 mmol/L Blood Urea Nitrogen 16 mg/dl Creatinine 0.97 mg/dl Est Creatinine Clear Calc Drug Dose 93.0 ml/min Estimated GFR () 92.6 Estimated GFR (Non- 79.9 BUN/Creatinine Ratio 16.3 Random Glucose 135 mg/dl Calcium Level 8.2 mg/dl Assessment and Plan 66 y/o M with complex medical history including chronic systolic CHF, severe PAD , chronic AF, VT, Factor V Leiden mutation - resultant DVT/PE, HPL, HTN, chronic lower extremity ulcers, COPD. Resides at [facility] and was transferred to the ER yesterday due to lethargy, cough and persistent high fever. 1) sepsis- likely source is the left BKA site with bacteremia - CT scan confirmed pocket of fluid. -Consulted Gen. Surgery and patient had an I and D -Patient will need wound vac but will not be available until Wednesday. Xarelto is on hold due to bleeding from wound. -Culture shows the following 1. PSEUDOMONAS AERUGINOSA Target Route Dose RX AB Cost M.I.C. IQ ------ ----- ------ -- ------ -------- - ------ CEFTAZIDIME R >16 CEFEPIME R >16 IMIPENEM S 2 AZTREONAM R >16 GENTAMICIN S <=4 TOBRAMYCIN S <=4 AMIKACIN S <=16 CIPROFLOXACIN S <=1 LEVOFLOXACIN S <=2 PIP/TAZO R >64 -Due to prolonged QTC, patient was started on Imipenem. -ID is consulted as well. -Pain is well controlled with 10 oxycodone, despite patient taking 20 mg at home. 2) COPD -hypoxia improving - will provide duonebs/albuterol and an initial dose of Solumedrol. Continue prescribed inhalers. 3) Systolic CHF - cont ARB, Carvedilol. Patient does not appear to be dehydrated as no signs of ARTURO 4) CAD - Trop is elevated but represents a value below baseline - no evidence of ACS at present - cont B russ, ASA, Statin 5) AF - rate controlled - cont B russ - xarelto on hold due too bleeding 6) PVD - Follows with vascular surgery and wound care - cont ASA 7) Factor V mutation - Hx DVT/PE - cont Xarelto 8) Gout - cont Allopurinol Continued [facility] stay due to: fever, multiple IV medications needed Discharge planning: uncertain
[2017-01-16] MEDS: SIMVASTATIN 40 MG TAB PO SCH (21:11)
[2017-01-16] MEDS: GABAPENTIN 300 MG CAP PO SCH (21:11)
[2017-01-16] MEDS: FENTANYL 50 MCG/HR TDSY TD SCH (23:02)
[2017-01-16] MEDS: FENTANYL PATCH REMOVE & WASTE SCH (23:03)
[2017-01-17] MEDS: CHECK FENTANYL PATCH PLACEMENT SCH ×4 (00:05→23:57)
[2017-01-17] MEDS: LORAZEPAM 0.5 MG TAB PO PRN (00:30)
[2017-01-17] MEDS: OXYCODONE HCL IR 5 MG TAB (IMMEDIATE RELEASE) PO PRN ×3 (00:30→21:52)
[2017-01-17 03:39] VITALS: BP 124/71; PULSE 78; TEMP 36.6; O2SAT 95
[2017-01-17] MEDS: IMIPENEM/CILASTATIN IV 500 MG in D5W 100ML IV SCH ×4 (04:10→21:47)
--- NOTE | 2017-01-17 05:14 | Surgery Progress Note ---
Surgery Progress Note Date of Service Jan 17, 2017. Subjective no further acute bleeding cult neg so far Objective Vital Signs: Date Time Temp Pulse Resp B/P (MAP) Pulse Ox O2 Delivery O2 Flow Rate FiO2 01/17/17 04:00 Room Air 01/17/17 03:39 36.6 78 16 124/71 (88) 95 Room Air 01/16/17 23:59 Room Air 01/16/17 23:31 37.3 73 18 104/73 (83) 96 Room Air 01/16/17 20:00 Room Air 01/16/17 18:51 36.6 65 18 116/72 (87) 95 Room Air 01/16/17 16:00 Room Air 01/16/17 15:28 36.5 71 18 128/76 (93) 95 Room Air 01/16/17 14:04 67 14 94 Room Air 01/16/17 12:00 Room Air 01/16/17 11:55 36.7 66 20 109/66 (80) 96 Room Air 01/16/17 08:00 Room Air 01/16/17 07:32 36.8 67 20 112/72 (85) 94 General Appearance: no apparent distress Respiratory/Chest: no respiratory distress Incision(s): clean, drainage (slight) Laboratory Results: Results Past 24 Hours Test 01/16/17 05:25 01/17/17 04:44 Range/Units White Blood Count 12.05 4.8-10.8 K/uL Red Blood Count 2.92 4.7-6.1 M/uL Hemoglobin 10.0 14.0-18.0 g/dL Hematocrit 30.6 42-52 % Mean Corpuscular Volume 104.8 80-100 fL Mean Corpuscular Hemoglobin 34.2 25-34 pg Mean Corpuscular Hemoglobin Concent 32.7 32-36 g/dl RDW Standard Deviation 51.5 36.4-46.3 fL RDW Coefficient of Variation 13.4 11.5-14.5 % Platelet Count 138 130-400 K/uL Mean Platelet Volume 9.8 7.4-10.4 fL Sodium Level 142 136-145 mmol/L Potassium Level 3.5 3.5-5.1 mmol/L Chloride Level 110 98-107 mmol/L Carbon Dioxide Level 27 21-32 mmol/L Anion Gap 5.0 3-11 mmol/L Blood Urea Nitrogen 16 7-18 mg/dl Creatinine 0.97 0.60-1.40 mg/dl Est Creatinine Clear Calc Drug Dose 93.0 ml/min Estimated GFR () 92.6 Estimated GFR (Non- 79.9 BUN/Creatinine Ratio 16.3 10-20 Random Glucose 135 70-99 mg/dl Calcium Level 8.2 8.5-10.1 mg/dl Assessment & Plan 01/17/17- no acute chgs- bleeding subsided- begin IV or Subcu Heparin as per medical team- would hold Xarelto for now- could consult with Dr Aceves if needed 01/16/17- s/p incision/drainage Lt BKA - cult pending, much less bleeding- hold Xarelto and subcu hep- dressing chgs as needed 01/15/17- s/p incision / drainage Lt BKA- cavity c/w CT- lateral / posterior leg no hematoma or purulence- watery/ edema fluid- ?early fasciitis- cult sent - doubt pseudomonas cavity lightly packed. ? infection could be Rt leg. ? other source for pseudomonas 01/16/17- s/p incision/drainage Lt BKA - cult pending, much less bleeding- hold Xarelto and subcu hep- dressing chgs as needed 01/15/17- s/p incision / drainage Lt BKA- cavity c/w CT- lateral / posterior leg no hematoma or purulence- watery/ edema fluid- ?early fasciitis- cult sent - doubt pseudomonas cavity lightly packed. ? infection could be Rt leg. ? other source for pseudomonas
[2017-01-17] MEDS: HEPARIN SOD 5000 UNIT/0.5 ML CARP SQ SCH ×3 (06:00→21:47)
[2017-01-17 06:51] LABS: BASO % 0.3 %; BASO ABS # 0.03 K/uL (0-0.2); COMPLETE YES; EOS % 1.4 %; HEMATOCRIT 34.3 % (42-52); IG% 0.5 %; LYMPH % 22.1 %; LYMPH ABS # 2.02 K/uL (1.2-3.4); MEAN CELL VOLUME 105.2 fL (80-100); MEAN CORPUSCULAR HEMOGLOBIN 33.7 pg (25-34); MEAN CORPUSCULAR HGB CONC 32.1 g/dl (32-36); MEAN PLATELET VOLUME 9.5 fL (7.4-10.4); NEUT % 66.7 %; PLATELET COUNT 153 K/uL (130-400); RED BLOOD COUNT 3.26 M/uL (4.7-6.1); WHITE BLOOD COUNT 9.13 K/uL (4.8-10.8)
[2017-01-17] MEDS: ALBUT/IPRATROP 3MG/0.5MG NEB 3 ML VIAL INH SCH ×3 (06:53→19:35)
[2017-01-17] MEDS: BOOST PLUS VANILLA PO SCH ×4 (07:00→14:24)
[2017-01-17 07:18] VITALS: BP 136/101; PULSE 85; TEMP 37; O2SAT 95
[2017-01-17 07:23] LABS: BUN/CREATININE RATIO 12.7 (10-20); CALCIUM 8.5 mg/dl (8.5-10.1); CREATININE 0.99 mg/dl (0.60-1.40); POTASSIUM 3.3 mmol/L (3.5-5.1)
[2017-01-17] MEDS: SERTRALINE HCL 100 MG TAB PO SCH (08:19)
[2017-01-17] MEDS: GABAPENTIN 100 MG CAP PO SCH (08:19)
[2017-01-17] MEDS: FLUTICASONE/SALMETEROL (ADVAIR) 500/50 INH 14 PUFF INH SCH ×2 (08:19→21:47)
[2017-01-17] MEDS: ISOSORBIDE MONONITRATE 60 MG TABCR PO SCH (08:20)
[2017-01-17] MEDS: TOPIRAMATE 100 MG TAB PO SCH ×2 (08:20→21:46)
[2017-01-17] MEDS: CARVEDILOL 3.125 MG TAB PO SCH ×2 (08:20→21:45)
[2017-01-17] MEDS: RANITIDINE HCL 150 MG TAB PO SCH ×2 (08:20→21:47)
[2017-01-17] MEDS: LOSARTAN POTASSIUM 25 MG TAB PO SCH (08:20)
[2017-01-17] MEDS: ASPIRIN 81 MG ECTAB PO SCH (08:20)
[2017-01-17] MEDS: ALLOPURINOL 100 MG TAB PO SCH (08:20)
[2017-01-17] MEDS: FERROUS SULFATE 325 MG TAB PO SCH ×2 (08:21→21:45)
[2017-01-17] MEDS: ARTIFICIAL TEARS OP SOLN OP SCH ×8 (08:25→21:48)
[2017-01-17 10:35] VITALS: BP 109/63; PULSE 76; TEMP 37.5; O2SAT 94
--- NOTE | 2017-01-17 11:55 | Progress Note ---
Subjective Date of Service: Jan 17, 2017. 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, review of inpatient medication list Pain: c/o increased pain in left stump PO Intake: adequate Voiding: aldrich catheter in place patient sitting up in bed, no major complaints patient c/o increased pain in stump, typically on Fentanyl 50mcg at SNF, here he is getting some as needed Oxycodone eating well discussed possible need for wound vac, IV antibiotics, already lives at [facility] so that wouldn't be a problem reviewed labs, WBC 9, Cr stable vitals stable, safe to transfer to medical floor Problem List Medical Problems: (1) Acute exacerbation of chronic low back pain Status: Acute (2) Cellulitis of right lower extremity Status: Acute (3) Fall Status: Acute (4) Pressure ulcer Status: Acute (5) Pulmonary edema Status: Acute (6) Sepsis Status: Acute Review of Systems Constitutional: + weakness Musculoskeletal: + joint pain (left stump) Neurologic: + weakness All Other Systems: Reviewed and Negative Medications Current Inpatient Medications Medications (Trade) Dose Ordered Sig/Emily Route Start Time Stop Time Status Last Admin Dose Admin Allopurinol (Zyloprim Tab) 100 mg QAM PO 01/14/17 09:00 02/13/17 08:59 01/17/17 08:20 100 MG Artificial Tears (Artificial Tears) 2 drops QID OP 01/14/17 09:00 02/13/17 08:59 01/16/17 21:09 2 DROPS Aspirin (Ecotrin Tab) 81 mg QAM PO 01/14/17 09:00 02/13/17 08:59 01/17/17 08:20 81 MG Carvedilol (Coreg Tab) 9.375 mg BID PO 01/14/17 09:00 02/13/17 08:59 01/17/17 08:20 9.375 MG Fentanyl (Duragesic Patch) 50 mcg Q72H TD 01/13/17 23:00 01/27/17 22:59 01/16/17 23:02 50 MCG Ferrous Sulfate (Feosol Tab) 325 mg BID PO 01/14/17 09:00 02/13/17 08:59 01/17/17 08:21 325 MG Salmeterol Xinafoate/ Fluticasone (Advair Diskus 500/50 Inh) 1 puff BID INH 01/14/17 09:00 02/13/17 08:59 01/17/17 08:19 1 PUFF Gabapentin (Neurontin Cap) 200 mg QAM PO 01/14/17 09:00 02/13/17 08:59 01/17/17 08:19 200 MG Gabapentin (Neurontin Cap) 600 mg HS PO 01/14/17 21:00 02/13/17 20:59 01/16/17 21:11 600 MG Isosorbide Mononitrate (Imdur Ext Rel Tab) 60 mg QAM PO 01/14/17 09:00 02/13/17 08:59 01/17/17 08:20 60 MG Lorazepam (Ativan Tab) 0.5 mg BID PRN PO 01/13/17 21:45 02/12/17 21:44 01/17/17 00:30 0.5 MG Losartan Potassium (coZAAR TAB) 25 mg QAM PO 01/14/17 09:00 02/13/17 08:59 01/17/17 08:20 25 MG Ranitidine HCl (zANTac TAB) 150 mg BID PO 01/14/17 09:00 02/13/17 08:59 01/17/17 08:20 150 MG Sertraline HCl (Zoloft Tab) 200 mg QAM PO 01/14/17 09:00 02/13/17 08:59 01/17/17 08:19 200 MG Simvastatin (Zocor Tab) 40 mg QPM PO 01/14/17 21:00 02/13/17 20:59 01/16/17 21:11 40 MG Topiramate (Topamax Tab) 100 mg BID PO 01/14/17 09:00 02/13/17 08:59 01/17/17 08:20 100 MG Albuterol/ Ipratropium (Duoneb) 3 ml Q6R INH 01/14/17 03:00 02/13/17 02:59 01/16/17 14:01 3 ML Albuterol Sulfate (Ventolin 0.083% 2.5MG/3ML Neb) 2.5 mg Q4R PRN INH 01/13/17 21:45 02/12/17 21:44 Codeine Phosphate/ Guaifenesin (Robitussin-AC Sugar Free Syrup) 5 ml Q6H PRN PO 01/13/17 21:45 02/12/17 21:44 Acetaminophen (Tylenol Tab) 650 mg Q4H PRN PO 01/13/17 22:00 02/12/17 21:59 Al Hydrox/Mg Hydrox/Simethicone (Maalox Max Susp) 15 ml Q4H PRN PO 01/13/17 22:00 02/12/17 21:59 Magnesium Hydroxide (Milk Of Magnesia Susp) 30 ml Q12H PRN PO 01/13/17 22:00 02/12/17 21:59 Ondansetron HCl (Zofran Inj) 4 mg Q6H PRN IV 01/13/17 22:00 02/12/17 21:59 Nitroglycerin (Nitrostat Tab) 0.4 mg UD PRN SL 01/13/17 22:00 02/12/17 21:59 Morphine Sulfate (MoRPHine SULFATE INJ) 2 mg Q30M PRN IV 01/13/17 22:00 01/27/17 21:59 Polyethylene (Miralax Powder Packet) 17 gm DAILY PRN PO 01/13/17 22:00 02/12/17 21:59 Miscellaneous (Fentanyl Patch Remove & Waste) 1 ea Q3D N/A 01/13/17 22:59 02/12/17 22:58 01/16/17 23:03 1 EA Miscellaneous Information (Check Fentanyl Patch Placement) 1 ea QS N/A 01/14/17 08:00 02/13/17 07:59 01/17/17 08:21 1 EA Ioversol (Optiray 320) 125 ml UD PRN IV 01/14/17 14:30 01/18/17 14:29 Heparin Sodium (Porcine) (Heparin Sq 5000 Unit/0.5ml) 5,000 unit Q8 SQ 01/16/17 08:00 02/15/17 07:59 Enteral Nutritional Formula (Boost Plus Vanilla) 1 can [id number] PO 01/16/17 07:00 02/15/17 06:59 Oxycodone HCl (Roxicodone Immediate Rel Tab) 10 mg Q6 PRN PO 01/15/17 19:00 01/28/17 18:44 01/17/17 08:24 10 MG Imipenem/ Cilastatin Sodium 500 mg/Dextrose 110 ml @ 110 mls/hr Q6H IV 01/16/17 10:00 01/30/17 09:59 01/17/17 04:10 110 MLS/HR Potassium Chloride (Klor-Con Tab) 40 meq QAM PO 01/17/17 09:00 02/13/17 08:59 Objective Vital Signs Date Time Temp Pulse Resp B/P (MAP) Pulse Ox O2 Delivery O2 Flow Rate FiO2 01/17/17 08:00 Room Air 01/17/17 07:18 37.0 85 20 136/101 (113) 95 Room Air 01/17/17 04:00 Room Air 01/17/17 03:39 36.6 78 16 124/71 (88) 95 Room Air 01/16/17 23:59 Room Air 01/16/17 23:31 37.3 73 18 104/73 (83) 96 Room Air 01/16/17 20:00 Room Air 01/16/17 18:51 36.6 65 18 116/72 (87) 95 Room Air 01/16/17 16:00 Room Air 01/16/17 15:28 36.5 71 18 128/76 (93) 95 Room Air 01/16/17 14:04 67 14 94 Room Air 01/16/17 12:00 Room Air 01/16/17 11:55 36.7 66 20 109/66 (80) 96 Room Air Physical Exam General Appearance: no apparent distress, + obese Eyes: normal inspection, EOMI, sclerae normal Neck: supple, no adenopathy, no JVD, trachea midline Respiratory/Chest: chest non-tender, lungs clear, normal breath sounds, no respiratory distress, no accessory muscle use Cardiovascular: regular rate, rhythm, no edema, no gallop, no JVD, no murmur Abdomen: normal bowel sounds, non tender, soft, no organomegaly Extremities: normal range of motion, non-tender, no pedal edema, no calf tenderness, pelvis stable, + pertinent finding (left AKA with wound) 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 tested, alert, normal mood/affect, oriented x 3, + motor weakness Skin: normal color, warm/dry, no rash Laboratory Results Last 24 Hours Test 01/17/17 06:29 White Blood Count 9.13 K/uL Red Blood Count 3.26 M/uL Hemoglobin 11.0 g/dL Hematocrit 34.3 % Mean Corpuscular Volume 105.2 fL Mean Corpuscular Hemoglobin 33.7 pg Mean Corpuscular Hemoglobin Concent 32.1 g/dl Platelet Count 153 K/uL Mean Platelet Volume 9.5 fL Neutrophils (%) (Auto) 66.7 % Lymphocytes (%) (Auto) 22.1 % Monocytes (%) (Auto) 9.0 % Eosinophils (%) (Auto) 1.4 % Basophils (%) (Auto) 0.3 % Neutrophils # (Auto) 6.08 K/uL Lymphocytes # (Auto) 2.02 K/uL Monocytes # (Auto) 0.82 K/uL Eosinophils # (Auto) 0.13 K/uL Basophils # (Auto) 0.03 K/uL RDW Standard Deviation 50.2 fL RDW Coefficient of Variation 13.0 % Immature Granulocyte % (Auto) 0.5 % Immature Granulocyte # (Auto) 0.05 K/uL Sodium Level 143 mmol/L Potassium Level 3.3 mmol/L Chloride Level 109 mmol/L Carbon Dioxide Level 29 mmol/L Anion Gap 5.0 mmol/L Blood Urea Nitrogen 13 mg/dl Creatinine 0.99 mg/dl Est Creatinine Clear Calc Drug Dose 92.5 ml/min Estimated GFR () 90.3 Estimated GFR (Non- 77.9 BUN/Creatinine Ratio 12.7 Random Glucose 100 mg/dl Calcium Level 8.5 mg/dl Assessment and Plan 66 y/o M with complex medical history including chronic systolic CHF, severe PAD , chronic AF, VT, Factor V Leiden mutation - resultant DVT/PE, HPL, HTN, chronic lower extremity ulcers, COPD. Resides at [facility] and was transferred to the ER yesterday due to lethargy, cough and persistent high fever. 1) sepsis- likely source is the left BKA site with bacteremia, Pseudomonas, resistant to Zosyn - CT scan confirmed pocket of fluid. -Consulted Gen. Surgery and patient had an I and D -Plan for wound vac that will be available Friday 01/19 - treating bacteremia with Imipenem due to prolonged QT on EKG - ID following, will discuss with them duration and route of antibiotics tomorrow, see if he will need PICC 2) COPD -hypoxia resolved, breathing room air this AM continue routine maintenance inhalers 3) chronic Systolic CHF - cont ARB, Carvedilol. Patient does not appear to be dehydrated as no signs of ARTURO 4) CAD - Trop is elevated but represents a value below baseline - no evidence of ACS at present - cont B russ, ASA, Statin 5) AF - rate controlled - cont B russ - xarelto on hold due too bleeding 6) PVD - Follows with vascular surgery and wound care - cont ASA 7) Factor V mutation - Hx DVT/PE - cont Xarelto 8) Gout - cont Allopurinol 9) Hypokalemia: increase PO morning dose to 40mEq transfer to medical floor Continued [facility] stay due to: fever, multiple IV medications needed Discharge planning: uncertain
[2017-01-17] MEDS: POTASSIUM CHLORIDE 20 MEQ TABCR PO SCH (13:23)
[2017-01-17 13:25] VITALS: BP 109/63; PULSE 76; TEMP 37.5; O2SAT 94
[2017-01-17 13:30] VITALS: BP 120/81; PULSE 70; TEMP 37; O2SAT 96
[2017-01-17 15:00] VITALS: BP 130/82; PULSE 61; TEMP 36.6; O2SAT 94
[2017-01-17] MEDS: GABAPENTIN 300 MG CAP PO SCH (21:45)
[2017-01-17] MEDS: SIMVASTATIN 40 MG TAB PO SCH (21:46)
[2017-01-18] VITALS (7 sets, daily range): BP systolic 107–130; BP diastolic 64–82; PULSE 64–88; TEMP 36.9–37.8; O2SAT 92–97
[2017-01-18] MEDS: ALBUT/IPRATROP 3MG/0.5MG NEB 3 ML VIAL INH SCH ×2 (02:08→07:09)
[2017-01-18] MEDS: IMIPENEM/CILASTATIN IV 500 MG in D5W 100ML IV SCH ×4 (04:08→21:24)
[2017-01-18] MEDS: HEPARIN SOD 5000 UNIT/0.5 ML CARP SQ SCH ×4 (06:00→21:26)
[2017-01-18] MEDS: CHECK FENTANYL PATCH PLACEMENT SCH ×3 (08:00→23:33)
--- NOTE | 2017-01-18 08:00 | Anesthesiology Progress Note ---
Anesthesia Post Op Note Date & Time Jan 18, 2017 at 07:59 Vital Signs Pain Intensity: 6.0 Vital Signs Past 12 Hours Date Time Temp Pulse Resp B/P (MAP) Pulse Ox O2 Delivery O2 Flow Rate FiO2 01/18/17 06:51 36.9 86 17 108/72 (84) 92 Room Air 01/18/17 00:22 37.1 78 16 110/74 (86) 92 Room Air 01/17/17 23:30 Room Air Notes Mental Status: alert / awake / arousable, participated in evaluation Pt Amnestic to Procedure: Yes Nausea / Vomiting: adequately controlled Pain: adequately controlled Airway Patency, RR, SpO2: stable & adequate BP & HR: stable & adequate Hydration State: stable & adequate Anesthetic Complications: no major complications apparent
[2017-01-18] MEDS: BOOST PLUS VANILLA PO SCH ×4 (08:43→14:00)
[2017-01-18] MEDS: FLUTICASONE/SALMETEROL (ADVAIR) 500/50 INH 14 PUFF INH SCH ×2 (08:44→21:11)
[2017-01-18] MEDS: CARVEDILOL 3.125 MG TAB PO SCH ×2 (08:45→21:16)
[2017-01-18] MEDS: ASPIRIN 81 MG ECTAB PO SCH (08:47)
[2017-01-18] MEDS: LOSARTAN POTASSIUM 25 MG TAB PO SCH (08:47)
[2017-01-18] MEDS: ISOSORBIDE MONONITRATE 60 MG TABCR PO SCH (08:48)
[2017-01-18] MEDS: FERROUS SULFATE 325 MG TAB PO SCH ×2 (08:48→21:13)
[2017-01-18] MEDS: POTASSIUM CHLORIDE 20 MEQ TABCR PO SCH (08:49)
[2017-01-18] MEDS: RANITIDINE HCL 150 MG TAB PO SCH ×2 (08:50→21:14)
[2017-01-18] MEDS: GABAPENTIN 100 MG CAP PO SCH (08:50)
[2017-01-18] MEDS: TOPIRAMATE 100 MG TAB PO SCH ×2 (08:50→21:13)
[2017-01-18] MEDS: ALLOPURINOL 100 MG TAB PO SCH (08:51)
[2017-01-18] MEDS: SERTRALINE HCL 100 MG TAB PO SCH (08:51)
[2017-01-18] MEDS: ARTIFICIAL TEARS OP SOLN OP SCH ×8 (09:00→21:00)
[2017-01-18] MEDS ORDERED: ALBUT/IPRATROP 3MG/0.5MG NEB 3 ML VIAL INH PRN (10:45)
[2017-01-18 10:47] LABS: HEMATOCRIT 33.7 % (42-52); MEAN CELL VOLUME 102.7 fL (80-100); MEAN CORPUSCULAR HEMOGLOBIN 32.6 pg (25-34); MEAN CORPUSCULAR HGB CONC 31.8 g/dl (32-36); MEAN PLATELET VOLUME 10.2 fL (7.4-10.4); PLATELET COUNT 152 K/uL (130-400); RED BLOOD COUNT 3.28 M/uL (4.7-6.1); WHITE BLOOD COUNT 8.71 K/uL (4.8-10.8)
[2017-01-18 10:49] LABS: BASO % 0.3 %; BASO ABS # 0.03 K/uL (0-0.2); COMPLETE YES; EOS % 1.7 %; HYPERSEGMENTED POLYS 1+; IG% 0.8 %; LYMPH % 16.5 %; LYMPH ABS # 1.44 K/uL (1.2-3.4); NEUT % 72.7 %; PLT ESTIMATE NORMAL; VACUOLIZATION 1+
[2017-01-18 10:57] LABS: BLOOD UREA NITROGEN 11 mg/dl (7-18); CALCIUM 8.3 mg/dl (8.5-10.1); CARBON DIOXIDE 22 mmol/L (21-32); CHLORIDE 112 mmol/L (98-107); CREATININE 0.97 mg/dl (0.60-1.40); GLUCOSE 146 mg/dl (70-99); SODIUM 142 mmol/L (136-145)
[2017-01-18] MEDS: IPRATROPIUM BROMIDE/ALBUTEROL respimat INH INH SCH ×3 (11:39→23:33)
--- NOTE | 2017-01-18 15:43 | Hospitalist Progress Note ---
Hospitalist Progress Note Date of Service Jan 18, 2017. Subjective Pt evaluation today including: conversation w/ patient, physical exam, review of inpatient medication list Voiding: no voiding problems Constitutional: No fever, No chills Respiratory: No cough, No sputum, No wheezing Cardiovascular: No chest pain Abdomen: No pain, No nausea, No vomiting, No diarrhea All Other Systems: Reviewed and Negative Medications Medications Administered Medications (Trade) Dose Ordered Sig/Emily Route Start Time Stop Time Status Last Admin Dose Admin Sodium Chloride 1,000 ml @ 999 mls/hr Q1H1M ONCE IV 01/13/17 19:37 01/13/17 20:37 DC 01/13/17 20:00 999 MLS/HR Acetaminophen (Tylenol Supp) 975 mg NOW STAT MO 01/13/17 19:37 01/13/17 19:41 DC 01/13/17 21:05 975 MG Levofloxacin (Levaquin / D5W) 750 mg NOW STAT IV 01/13/17 19:37 01/13/17 19:41 DC 01/13/17 20:40 750 MG Potassium Phosphate 21 mmol/ Sodium Chloride 507 ml @ 140 mls/hr ONE STAT IV 01/13/17 21:43 01/14/17 01:20 DC 01/14/17 00:25 140 MLS/HR Allopurinol (Zyloprim Tab) 100 mg QAM PO 01/14/17 09:00 02/13/17 08:59 01/18/17 08:51 100 MG Artificial Tears (Artificial Tears) 2 drops QID OP 01/14/17 09:00 02/13/17 08:59 01/17/17 21:48 2 DROPS Aspirin (Ecotrin Tab) 81 mg QAM PO 01/14/17 09:00 02/13/17 08:59 01/18/17 08:47 81 MG Carvedilol (Coreg Tab) 9.375 mg BID PO 01/14/17 09:00 02/13/17 08:59 01/18/17 08:45 9.375 MG Fentanyl (Duragesic Patch) 50 mcg Q72H TD 01/13/17 23:00 01/27/17 22:59 01/16/17 23:02 50 MCG Ferrous Sulfate (Feosol Tab) 325 mg BID PO 01/14/17 09:00 02/13/17 08:59 01/18/17 08:48 325 MG Salmeterol Xinafoate/ Fluticasone (Advair Diskus 500/50 Inh) 1 puff BID INH 01/14/17 09:00 02/13/17 08:59 01/18/17 08:44 1 PUFF Gabapentin (Neurontin Cap) 200 mg QAM PO 01/14/17 09:00 02/13/17 08:59 01/18/17 08:50 200 MG Gabapentin (Neurontin Cap) 600 mg HS PO 01/14/17 21:00 02/13/17 20:59 01/17/17 21:45 600 MG Isosorbide Mononitrate (Imdur Ext Rel Tab) 60 mg QAM PO 01/14/17 09:00 02/13/17 08:59 01/18/17 08:48 60 MG Lorazepam (Ativan Tab) 0.5 mg BID PRN PO 01/13/17 21:45 02/12/17 21:44 01/17/17 00:30 0.5 MG Losartan Potassium (coZAAR TAB) 25 mg QAM PO 01/14/17 09:00 02/13/17 08:59 01/18/17 08:47 25 MG Potassium Chloride (Klor-Con M10) 20 meq QAM PO 01/14/17 09:00 01/17/17 07:30 DC 01/16/17 11:30 20 MEQ Ranitidine HCl (zANTac TAB) 150 mg BID PO 01/14/17 09:00 02/13/17 08:59 01/18/17 08:50 150 MG Rivaroxaban (Xarelto Tab) 20 mg HS PO 01/14/17 21:00 01/15/17 10:05 DC 01/14/17 20:07 20 MG Sertraline HCl (Zoloft Tab) 200 mg QAM PO 01/14/17 09:00 02/13/17 08:59 01/18/17 08:51 200 MG Simvastatin (Zocor Tab) 40 mg QPM PO 01/14/17 21:00 02/13/17 20:59 01/17/17 21:46 40 MG Topiramate (Topamax Tab) 100 mg BID PO 01/14/17 09:00 02/13/17 08:59 01/18/17 08:50 100 MG Albuterol/ Ipratropium (Duoneb) 3 ml Q6R INH 01/14/17 03:00 01/18/17 10:36 DC 01/18/17 07:09 3 ML Miscellaneous (Fentanyl Patch Remove & Waste) 1 ea Q3D N/A 01/13/17 22:59 02/12/17 22:58 01/16/17 23:03 1 EA Miscellaneous Information (Check Fentanyl Patch Placement) 1 ea QS N/A 01/14/17 08:00 02/13/17 07:59 01/18/17 08:00 1 EA Daptomycin 700 mg/ Sodium Chloride 64 ml @ 100 mls/hr Q24H IV 01/14/17 00:00 01/16/17 09:58 DC 01/16/17 00:34 100 MLS/HR Piperacillin Sod/ Tazobactam Sod 3.375 gm/Dextrose 115 ml @ 200 mls/hr NOW ONCE IV 01/14/17 00:30 01/14/17 01:04 DC 01/14/17 01:17 200 MLS/HR Piperacillin Sod/ Tazobactam Sod 3.375 gm/Dextrose 115 ml @ 28.75 mls/ hr Q8H IV 01/14/17 06:00 01/16/17 09:59 DC 01/16/17 05:41 28.75 MLS/HR Oxycodone HCl (Roxicodone Immediate Rel Tab) 5 mg Q6 PRN PO 01/14/17 18:45 01/15/17 18:54 DC 01/15/17 16:20 5 MG Cefoxitin Sodium (Mefoxin IV) 1,000 mg STK-MED ONCE .ROUTE 01/15/17 08:29 01/15/17 08:30 DC 01/15/17 09:41 1,000 MG Heparin Sodium (Porcine) (Heparin Sq 5000 Unit/0.5ml) 5,000 unit Q8 SQ 01/16/17 08:00 02/15/17 07:59 01/18/17 14:51 5,000 UNIT Enteral Nutritional Formula (Boost Plus Vanilla) 1 can [id number] PO 01/16/17 07:00 02/15/17 06:59 01/18/17 08:43 1 CAN Oxycodone HCl (Roxicodone Immediate Rel Tab) mg Q6 PRN PO 01/15/17 19:00 01/17/17 11:57 DC 01/17/17 08:24 10 MG Imipenem/ Cilastatin Sodium 500 mg/Dextrose 110 ml @ 110 mls/hr Q6H IV 01/16/17 10:00 01/30/17 09:59 01/18/17 11:50 110 MLS/HR Potassium Chloride (Klor-Con Tab) 40 meq QAM PO 01/17/17 09:00 02/13/17 08:59 01/18/17 08:49 40 MEQ Oxycodone HCl (Roxicodone Immediate Rel Tab) 20 mg Q6 PRN PO 01/17/17 12:00 01/28/17 18:44 01/17/17 21:52 20 MG Albuterol/ Ipratropium (Combivent Respimat Inh) 1 puffs Q6 INH 01/18/17 12:00 02/17/17 11:59 01/18/17 11:39 1 PUFFS Objective Vital Signs Date Time Temp Pulse Resp B/P (MAP) Pulse Ox O2 Delivery O2 Flow Rate FiO2 01/18/17 15:16 37.8 74 17 107/64 (78) 97 Room Air 01/18/17 11:47 64 15 96 Room Air 01/18/17 08:05 Room Air 01/18/17 06:51 36.9 86 17 108/72 (84) 92 Room Air 01/18/17 00:22 37.1 78 16 110/74 (86) 92 Room Air 01/17/17 23:30 Room Air 01/17/17 16:35 Room Air Physical Exam Notes: General: no distress Eyes: normal inspection, PERLL Respiratory: chest non tender, clear to auscultation, normal breath sounds, no respiratory distress, no accessory muscle use Cardiac: regular rate and rhythm, no rub or gallop, no murmur, no edema, no jvd GI/: active bowel sounds, no abd pain or tenderness, soft, non distended Extremities: normal range of motion, normal strength, non tender Neuro/Psych: alert and oriented x 3, flat affect Skin: normal color, dry, left bka dressing dry and intact Laboratory Results Last 24 Hours Test 01/18/17 09:53 01/18/17 11:37 White Blood Count 8.71 K/uL Red Blood Count 3.28 M/uL Hemoglobin 10.7 g/dL Hematocrit 33.7 % Mean Corpuscular Volume 102.7 fL Mean Corpuscular Hemoglobin 32.6 pg Mean Corpuscular Hemoglobin Concent 31.8 g/dl Platelet Count 152 K/uL Mean Platelet Volume 10.2 fL Neutrophils (%) (Auto) 72.7 % Lymphocytes (%) (Auto) 16.5 % Monocytes (%) (Auto) 8.0 % Eosinophils (%) (Auto) 1.7 % Basophils (%) (Auto) 0.3 % Neutrophils # (Auto) 6.32 K/uL Lymphocytes # (Auto) 1.44 K/uL Monocytes # (Auto) 0.70 K/uL Eosinophils # (Auto) 0.15 K/uL Basophils # (Auto) 0.03 K/uL RDW Standard Deviation 48.2 fL RDW Coefficient of Variation 12.9 % Immature Granulocyte % (Auto) 0.8 % Immature Granulocyte # (Auto) 0.07 K/uL Hypersegmented Polys 1+ Toxic Vacuolation 1+ Platelet Estimate NORMAL Macrocytosis PRESENT Sodium Level 142 mmol/L Potassium Level mmol/L 3.7 mmol/L Chloride Level 112 mmol/L Carbon Dioxide Level 22 mmol/L Anion Gap 8.0 mmol/L Blood Urea Nitrogen 11 mg/dl Creatinine 0.97 mg/dl Est Creatinine Clear Calc Drug Dose 94.4 ml/min Estimated GFR () 92.6 Estimated GFR (Non- 79.9 BUN/Creatinine Ratio 11.0 Random Glucose 146 mg/dl Calcium Level 8.3 mg/dl Assessment and Plan 66 y/o M with complex medical history including chronic systolic CHF, severe PAD , chronic AF, VT, Factor V Leiden mutation - resultant DVT/PE, HPL, HTN, chronic lower extremity ulcers, COPD. Resides at [facility] and was transferred to the ER yesterday due to lethargy, cough and persistent high fever. 1) sepsis- likely source is the left BKA site with bacteremia, Pseudomonas, resistant to Zosyn - CT scan confirmed pocket of fluid. -Consulted Gen. Surgery and patient had an I and D 01/15 -Plan for wound vac that will be available Friday 01/19 - treating bacteremia with Imipenem due to prolonged QT on EKG - ID following - recommend PICC and continued imipenem at [facility] for 14 days 2) COPD -hypoxia resolved, breathing room air this AM continue routine maintenance inhalers 3) chronic Systolic CHF - cont ARB, Carvedilol. Patient does not appear to be dehydrated as no signs of ARTURO 4) CAD - Trop is elevated but represents a value below baseline - no evidence of ACS at present - cont B russ, ASA, Statin 5) AF - rate controlled - cont B russ - xarelto on hold due to bleeding 6) PVD - Follows with vascular surgery and wound care - cont ASA 7) Factor V mutation - Hx DVT/PE - xarelto held 8) Gout - cont Allopurinol 9) Hypokalemia - resolved Full code, SCDs
--- NOTE | 2017-01-18 17:01 | DIAGNOSTIC IMAGING REPORT ---
CHEST ONE VIEW PORTABLE HISTORY: 66 years-old Male PICC placement status post right-sided PICC placement COMPARISON: Chest radiograph 01/13/2017 TECHNIQUE: Portable upright AP view of the chest FINDINGS: Left subclavian pacer/AICD is again noted. Prior median sternotomy. Moderate cardiomegaly is unchanged. Pulmonary vascular congestion is again noted with mildly progressive hazy left perihilar opacities. No pneumothorax identified status post placement of a right-sided PICC with distal tip appearing to terminate within the region of the SVC brachiocephalic confluence. Small left pleural effusion with hazy left basilar opacities. No lobar airspace consolidation. The bones are grossly intact. Surgical clips are seen within the region of the right axilla. IMPRESSION: 1. Status post placement of a right-sided PICC with distal tip appearing to terminate within the region of the SVC brachiocephalic confluence. No postprocedural pneumothorax identified. 2. Cardiomegaly with pulmonary vascular congestion and interval development of hazy left perihilar and left basilar opacities suggesting atelectasis or developing pulmonary edema with small left pleural effusion. The above report was generated using voice recognition software. It may contain grammatical, syntax or spelling errors. Electronically signed by: Ricardo Saunders M.D. 01/18/2017 5:00 PM Dictated Date/Time: 01/18/2017 4:57 PM
--- NOTE | 2017-01-18 18:27 | DIAGNOSTIC IMAGING REPORT ---
CHEST ONE VIEW PORTABLE HISTORY: 66 years-old Male picc repositons repositioned PICC COMPARISON: Chest radiograph 01/18/2017 TECHNIQUE: Portable upright AP view of the chest FINDINGS: Right-sided pericaval been repositioned with distal tip appearing to terminate within the region of the mid SVC. Note however that the adjacent left subclavian pacer/AICD lead may obscure the distalmost portion of the catheter. Prior median sternotomy. Cardiac silhouette is again mildly enlarged. Pulmonary vascular congestion is again seen with hazy left perihilar and left basilar opacities suggesting atelectasis with small left pleural effusion. Clips of the right axilla noted. Bones are grossly intact. IMPRESSION: 1. Repositioned right sided PICC with distal tip in the region of the mid SVC. Note however that the adjacent left subclavian pacer/AICD lead may obscure the distal most portion of the catheter. 2. Mild cardiomegaly with pulmonary vascular congestion, probable bibasilar atelectasis with small left pleural effusion. The above report was generated using voice recognition software. It may contain grammatical, syntax or spelling errors. Electronically signed by: Ricardo Saunders M.D. 01/18/2017 6:26 PM Dictated Date/Time: 01/18/2017 6:17 PM
--- NOTE | 2017-01-18 19:09 | Infectious Disease Progress Nt ---
Progress Note Date of Service Jan 18, 2017. Subjective Pt evaluation today including: conversation w/ patient, physical exam, chart review, lab review, review of studies, conversation w/ computing consultant, review of inpatient medication list Offers no new complaints. Tolerating imipenem. Has been afebrile, hemodynamically stable. All Other Systems: Reviewed and Negative Medications Current Inpatient Medications Medications (Trade) Dose Ordered Sig/Emily Route Start Time Stop Time Status Last Admin Dose Admin Allopurinol (Zyloprim Tab) 100 mg QAM PO 01/14/17 09:00 02/13/17 08:59 01/18/17 08:51 100 MG Artificial Tears (Artificial Tears) 2 drops QID OP 01/14/17 09:00 02/13/17 08:59 01/17/17 21:48 2 DROPS Aspirin (Ecotrin Tab) 81 mg QAM PO 01/14/17 09:00 02/13/17 08:59 01/18/17 08:47 81 MG Carvedilol (Coreg Tab) 9.375 mg BID PO 01/14/17 09:00 02/13/17 08:59 01/18/17 08:45 9.375 MG Fentanyl (Duragesic Patch) 50 mcg Q72H TD 01/13/17 23:00 01/27/17 22:59 01/16/17 23:02 50 MCG Ferrous Sulfate (Feosol Tab) 325 mg BID PO 01/14/17 09:00 02/13/17 08:59 01/18/17 08:48 325 MG Salmeterol Xinafoate/ Fluticasone (Advair Diskus 500/50 Inh) 1 puff BID INH 01/14/17 09:00 02/13/17 08:59 01/18/17 08:44 1 PUFF Gabapentin (Neurontin Cap) 200 mg QAM PO 01/14/17 09:00 02/13/17 08:59 01/18/17 08:50 200 MG Gabapentin (Neurontin Cap) 600 mg HS PO 01/14/17 21:00 02/13/17 20:59 01/17/17 21:45 600 MG Isosorbide Mononitrate (Imdur Ext Rel Tab) 60 mg QAM PO 01/14/17 09:00 02/13/17 08:59 01/18/17 08:48 60 MG Lorazepam (Ativan Tab) 0.5 mg BID PRN PO 01/13/17 21:45 02/12/17 21:44 01/17/17 00:30 0.5 MG Losartan Potassium (coZAAR TAB) 25 mg QAM PO 01/14/17 09:00 02/13/17 08:59 01/18/17 08:47 25 MG Ranitidine HCl (zANTac TAB) 150 mg BID PO 01/14/17 09:00 02/13/17 08:59 01/18/17 08:50 150 MG Sertraline HCl (Zoloft Tab) 200 mg QAM PO 01/14/17 09:00 02/13/17 08:59 01/18/17 08:51 200 MG Simvastatin (Zocor Tab) 40 mg QPM PO 01/14/17 21:00 02/13/17 20:59 01/17/17 21:46 40 MG Topiramate (Topamax Tab) 100 mg BID PO 01/14/17 09:00 02/13/17 08:59 01/18/17 08:50 100 MG Albuterol Sulfate (Ventolin 0.083% 2.5MG/3ML Neb) 2.5 mg Q4R PRN INH 01/13/17 21:45 02/12/17 21:44 Codeine Phosphate/ Guaifenesin (Robitussin-AC Sugar Free Syrup) 5 ml Q6H PRN PO 01/13/17 21:45 02/12/17 21:44 Acetaminophen (Tylenol Tab) 650 mg Q4H PRN PO 01/13/17 22:00 02/12/17 21:59 Al Hydrox/Mg Hydrox/Simethicone (Maalox Max Susp) 15 ml Q4H PRN PO 01/13/17 22:00 02/12/17 21:59 Magnesium Hydroxide (Milk Of Magnesia Susp) 30 ml Q12H PRN PO 01/13/17 22:00 02/12/17 21:59 Ondansetron HCl (Zofran Inj) 4 mg Q6H PRN IV 01/13/17 22:00 02/12/17 21:59 Nitroglycerin (Nitrostat Tab) 0.4 mg UD PRN SL 01/13/17 22:00 02/12/17 21:59 Morphine Sulfate (MoRPHine SULFATE INJ) 2 mg Q30M PRN IV 01/13/17 22:00 01/27/17 21:59 Polyethylene (Miralax Powder Packet) 17 gm DAILY PRN PO 01/13/17 22:00 02/12/17 21:59 Miscellaneous (Fentanyl Patch Remove & Waste) 1 ea Q3D N/A 01/13/17 22:59 02/12/17 22:58 01/16/17 23:03 1 EA Miscellaneous Information (Check Fentanyl Patch Placement) 1 ea QS N/A 01/14/17 08:00 02/13/17 07:59 01/18/17 16:05 1 EA Heparin Sodium (Porcine) (Heparin Sq 5000 Unit/0.5ml) 5,000 unit Q8 SQ 01/16/17 08:00 02/15/17 07:59 01/18/17 14:51 5,000 UNIT Enteral Nutritional Formula (Boost Plus Vanilla) 1 can [id number] PO 01/16/17 07:00 02/15/17 06:59 01/18/17 08:43 1 CAN Imipenem/ Cilastatin Sodium 500 mg/Dextrose 110 ml @ 110 mls/hr Q6H IV 01/16/17 10:00 01/30/17 09:59 01/18/17 16:00 110 MLS/HR Potassium Chloride (Klor-Con Tab) 40 meq QAM PO 01/17/17 09:00 02/13/17 08:59 01/18/17 08:49 40 MEQ Oxycodone HCl (Roxicodone Immediate Rel Tab) 20 mg Q6 PRN PO 01/17/17 12:00 01/28/17 18:44 01/17/17 21:52 20 MG Albuterol/ Ipratropium (Combivent Respimat Inh) 1 puffs Q6 INH 01/18/17 12:00 02/17/17 11:59 01/18/17 17:44 1 PUFFS Albuterol/ Ipratropium (Duoneb) 3 ml Q6R PRN INH 01/18/17 10:45 02/13/17 02:59 Heparin Sodium (Porcine) (Heparin 10 Unit/ ml 5 ml Flush) 5 ml PRN PRN FLUSH 01/18/17 16:45 02/17/17 16:44 Objective Vital Signs Date Time Temp Pulse Resp B/P (MAP) Pulse Ox O2 Delivery O2 Flow Rate FiO2 01/18/17 16:05 37.3 01/18/17 15:16 37.8 74 17 107/64 (78) 97 Room Air 01/18/17 11:47 64 15 96 Room Air 01/18/17 08:05 Room Air 01/18/17 06:51 36.9 86 17 108/72 (84) 92 Room Air 01/18/17 00:22 37.1 78 16 110/74 (86) 92 Room Air 01/17/17 23:30 Room Air Physical Exam General Appearance: no apparent distress, + pertinent finding (chronically ill- appearing) Eyes: normal inspection, EOMI, sclerae normal ENT: normal ENT inspection, pharynx normal Neck: supple, no adenopathy, thyroid normal, trachea midline Respiratory/Chest: chest non-tender, lungs clear, normal breath sounds, no respiratory distress Cardiovascular: regular rate, rhythm, no gallop, no murmur Abdomen: normal bowel sounds, non tender, soft, no organomegaly Extremities: non-tender, no calf tenderness Neurologic/Psychiatric: alert, oriented x 3 Skin: normal color, no rash, + pertinent finding (left AKA site dressed) Lymphatic: no adenopathy Laboratory Results Last 24 Hours Test 01/18/17 09:53 01/18/17 11:37 White Blood Count 8.71 K/uL Red Blood Count 3.28 M/uL Hemoglobin 10.7 g/dL Hematocrit 33.7 % Mean Corpuscular Volume 102.7 fL Mean Corpuscular Hemoglobin 32.6 pg Mean Corpuscular Hemoglobin Concent 31.8 g/dl Platelet Count 152 K/uL Mean Platelet Volume 10.2 fL Neutrophils (%) (Auto) 72.7 % Lymphocytes (%) (Auto) 16.5 % Monocytes (%) (Auto) 8.0 % Eosinophils (%) (Auto) 1.7 % Basophils (%) (Auto) 0.3 % Neutrophils # (Auto) 6.32 K/uL Lymphocytes # (Auto) 1.44 K/uL Monocytes # (Auto) 0.70 K/uL Eosinophils # (Auto) 0.15 K/uL Basophils # (Auto) 0.03 K/uL RDW Standard Deviation 48.2 fL RDW Coefficient of Variation 12.9 % Immature Granulocyte % (Auto) 0.8 % Immature Granulocyte # (Auto) 0.07 K/uL Hypersegmented Polys 1+ Toxic Vacuolation 1+ Platelet Estimate NORMAL Macrocytosis PRESENT Sodium Level 142 mmol/L Potassium Level mmol/L 3.7 mmol/L Chloride Level 112 mmol/L Carbon Dioxide Level 22 mmol/L Anion Gap 8.0 mmol/L Blood Urea Nitrogen 11 mg/dl Creatinine 0.97 mg/dl Est Creatinine Clear Calc Drug Dose 94.4 ml/min Estimated GFR () 92.6 Estimated GFR (Non- 79.9 BUN/Creatinine Ratio 11.0 Random Glucose 146 mg/dl Calcium Level 8.3 mg/dl Assessment and Plan 66-year-old male with multiple medical comorbidities now with Pseudomonal sepsis , likely from leg infection, now s/p debridement. patient will be continued on imipenem, likely will need 14 days Rx. Will follow. Discussed with hospitalist service.
[2017-01-18] MEDS: SIMVASTATIN 40 MG TAB PO SCH (21:12)
[2017-01-18] MEDS: GABAPENTIN 300 MG CAP PO SCH (21:13)
[2017-01-19] MEDS: IMIPENEM/CILASTATIN IV 500 MG in D5W 100ML IV SCH ×4 (03:14→22:04)
[2017-01-19] MEDS: IPRATROPIUM BROMIDE/ALBUTEROL respimat INH INH SCH ×4 (06:04→23:37)
[2017-01-19] MEDS: HEPARIN SOD 5000 UNIT/0.5 ML CARP SQ SCH ×3 (06:05→22:02)
[2017-01-19] MEDS: BOOST PLUS VANILLA PO SCH ×4 (06:07→14:37)
[2017-01-19 06:23] LABS: BASO % 0.3 %; BASO ABS # 0.03 K/uL (0-0.2); COMPLETE YES; EOS % 1.8 %; HEMATOCRIT 32.6 % (42-52); IG% 1.1 %; LYMPH % 24.7 %; LYMPH ABS # 2.18 K/uL (1.2-3.4); MEAN CELL VOLUME 102.5 fL (80-100); MEAN CORPUSCULAR HGB CONC 32.2 g/dl (32-36); MEAN PLATELET VOLUME 9.3 fL (7.4-10.4); MONO % 8.7 %; NEUT % 63.4 %; PLATELET COUNT 183 K/uL (130-400); RED BLOOD COUNT 3.18 M/uL (4.7-6.1); WHITE BLOOD COUNT 8.84 K/uL (4.8-10.8)
[2017-01-19 07:02] LABS: BUN/CREATININE RATIO 11.5 (10-20); CALCIUM 8.3 mg/dl (8.5-10.1); CREATININE 0.81 mg/dl (0.60-1.40); MAGNESIUM 2.2 mg/dl (1.8-2.4); POTASSIUM 3.7 mmol/L (3.5-5.1)
[2017-01-19 07:03] VITALS: BP 152/97; PULSE 71; TEMP 36.7; O2SAT 96
[2017-01-19] MEDS: CHECK FENTANYL PATCH PLACEMENT SCH ×3 (08:00→23:37)
[2017-01-19] MEDS: ARTIFICIAL TEARS OP SOLN OP SCH ×8 (09:00→20:45)
[2017-01-19 09:38] VITALS: BP 144/87; PULSE 71; O2SAT 96
[2017-01-19] MEDS: FLUTICASONE/SALMETEROL (ADVAIR) 500/50 INH 14 PUFF INH SCH ×2 (09:40→20:46)
[2017-01-19] MEDS: CARVEDILOL 3.125 MG TAB PO SCH ×2 (09:44→20:46)
[2017-01-19] MEDS: LOSARTAN POTASSIUM 25 MG TAB PO SCH (09:52)
[2017-01-19] MEDS: ASPIRIN 81 MG ECTAB PO SCH (09:53)
[2017-01-19] MEDS: ISOSORBIDE MONONITRATE 60 MG TABCR PO SCH (09:54)
[2017-01-19] MEDS: FERROUS SULFATE 325 MG TAB PO SCH ×2 (09:54→20:48)
[2017-01-19] MEDS: POTASSIUM CHLORIDE 20 MEQ TABCR PO SCH (09:55)
[2017-01-19] MEDS: TOPIRAMATE 100 MG TAB PO SCH ×2 (09:56→20:48)
[2017-01-19] MEDS: GABAPENTIN 100 MG CAP PO SCH (09:56)
[2017-01-19] MEDS: RANITIDINE HCL 150 MG TAB PO SCH ×2 (09:56→20:48)
[2017-01-19] MEDS: SERTRALINE HCL 100 MG TAB PO SCH (09:57)
[2017-01-19] MEDS: ALLOPURINOL 100 MG TAB PO SCH (09:58)
[2017-01-19] MEDS ORDERED: NURSING VERBAL MED ORDER ONE (13:00)
[2017-01-19 15:28] VITALS: BP 143/87; PULSE 70; TEMP 37.1; O2SAT 95
[2017-01-19] MEDS: OXYCODONE HCL IR 5 MG TAB (IMMEDIATE RELEASE) PO PRN (16:38)
[2017-01-19] MEDS: GABAPENTIN 300 MG CAP PO SCH (20:47)
[2017-01-19] MEDS: SIMVASTATIN 40 MG TAB PO SCH (20:48)
[2017-01-19] MEDS: FENTANYL PATCH REMOVE & WASTE SCH (22:02)
[2017-01-19] MEDS: FENTANYL 50 MCG/HR TDSY TD SCH (22:04)
[2017-01-19 23:11] VITALS: BP 123/70; PULSE 70; TEMP 36.8; O2SAT 95
[2017-01-20] MEDS: IMIPENEM/CILASTATIN IV 500 MG in D5W 100ML IV SCH ×2 (03:32→09:58)
[2017-01-20] MEDS: IPRATROPIUM BROMIDE/ALBUTEROL respimat INH INH SCH ×2 (05:43→12:38)
[2017-01-20] MEDS: HEPARIN SOD 5000 UNIT/0.5 ML CARP SQ SCH ×2 (05:44→12:37)
[2017-01-20] MEDS: BOOST PLUS VANILLA PO SCH ×4 (06:36→12:37)
[2017-01-20] MEDS: OXYCODONE HCL IR 5 MG TAB (IMMEDIATE RELEASE) PO PRN (06:37)
[2017-01-20 07:32] VITALS: BP 142/86; PULSE 78; TEMP 36.7; O2SAT 95
[2017-01-20] MEDS: CHECK FENTANYL PATCH PLACEMENT SCH (08:00)
[2017-01-20] MEDS: FLUTICASONE/SALMETEROL (ADVAIR) 500/50 INH 14 PUFF INH SCH (08:57)
[2017-01-20] MEDS: ARTIFICIAL TEARS OP SOLN OP SCH ×4 (09:00→12:37)
[2017-01-20] MEDS: CARVEDILOL 3.125 MG TAB PO SCH (09:01)
[2017-01-20] MEDS: ASPIRIN 81 MG ECTAB PO SCH (09:01)
[2017-01-20] MEDS: FERROUS SULFATE 325 MG TAB PO SCH (09:01)
[2017-01-20] MEDS: POTASSIUM CHLORIDE 20 MEQ TABCR PO SCH (09:01)
[2017-01-20] MEDS: ISOSORBIDE MONONITRATE 60 MG TABCR PO SCH (09:02)
[2017-01-20] MEDS: RANITIDINE HCL 150 MG TAB PO SCH (09:02)
[2017-01-20] MEDS: TOPIRAMATE 100 MG TAB PO SCH (09:02)
[2017-01-20] MEDS: GABAPENTIN 100 MG CAP PO SCH (09:02)
[2017-01-20] MEDS: ALLOPURINOL 100 MG TAB PO SCH (09:02)
[2017-01-20] MEDS: SERTRALINE HCL 100 MG TAB PO SCH (09:02)
[2017-01-20] MEDS: LOSARTAN POTASSIUM 25 MG TAB PO SCH (09:03)
[2017-01-20 13:09] VITALS: BP 142/86; PULSE 78; TEMP 36.7; O2SAT 95
--- NOTE | 2017-01-20 14:11 | Progress Note ---
Subjective Date of Service: Jan 19, 2017. Subjective Pt evaluation today including: conversation w/ patient, physical exam, lab review, review of inpatient medication list Pain: no pain PO Intake: adequate Voiding: aldrich catheter in place patient doing well on 01/19, no new issues wound vac placed, plan for d/c on 01/20 Problem List Medical Problems: (1) Acute exacerbation of chronic low back pain Status: Acute (2) Cellulitis of right lower extremity Status: Acute (3) Fall Status: Acute (4) Pressure ulcer Status: Acute (5) Pulmonary edema Status: Acute (6) Sepsis Status: Acute Review of Systems All Other Systems: Reviewed and Negative Medications Current Inpatient Medications Medications (Trade) Dose Ordered Sig/Emily Route Start Time Stop Time Status Last Admin Dose Admin Allopurinol (Zyloprim Tab) 100 mg QAM PO 01/14/17 09:00 02/13/17 08:59 01/19/17 09:58 100 MG Artificial Tears (Artificial Tears) 2 drops QID OP 01/14/17 09:00 02/13/17 08:59 01/17/17 21:48 2 DROPS Aspirin (Ecotrin Tab) 81 mg QAM PO 01/14/17 09:00 02/13/17 08:59 01/19/17 09:53 81 MG Carvedilol (Coreg Tab) 9.375 mg BID PO 01/14/17 09:00 02/13/17 08:59 01/19/17 09:44 9.375 MG Fentanyl (Duragesic Patch) 50 mcg Q72H TD 01/13/17 23:00 01/27/17 22:59 01/16/17 23:02 50 MCG Ferrous Sulfate (Feosol Tab) 325 mg BID PO 01/14/17 09:00 02/13/17 08:59 01/19/17 09:54 325 MG Salmeterol Xinafoate/ Fluticasone (Advair Diskus 500/50 Inh) 1 puff BID INH 01/14/17 09:00 02/13/17 08:59 01/19/17 09:40 1 PUFF Gabapentin (Neurontin Cap) 200 mg QAM PO 01/14/17 09:00 02/13/17 08:59 01/19/17 09:56 200 MG Gabapentin (Neurontin Cap) 600 mg HS PO 01/14/17 21:00 02/13/17 20:59 01/18/17 21:13 600 MG Isosorbide Mononitrate (Imdur Ext Rel Tab) 60 mg QAM PO 01/14/17 09:00 02/13/17 08:59 01/19/17 09:54 60 MG Lorazepam (Ativan Tab) 0.5 mg BID PRN PO 01/13/17 21:45 02/12/17 21:44 01/17/17 00:30 0.5 MG Losartan Potassium (coZAAR TAB) 25 mg QAM PO 01/14/17 09:00 02/13/17 08:59 01/19/17 09:52 25 MG Ranitidine HCl (zANTac TAB) 150 mg BID PO 01/14/17 09:00 02/13/17 08:59 01/19/17 09:56 150 MG Sertraline HCl (Zoloft Tab) 200 mg QAM PO 01/14/17 09:00 02/13/17 08:59 01/19/17 09:57 200 MG Simvastatin (Zocor Tab) 40 mg QPM PO 01/14/17 21:00 02/13/17 20:59 01/18/17 21:12 40 MG Topiramate (Topamax Tab) 100 mg BID PO 01/14/17 09:00 02/13/17 08:59 01/19/17 09:56 100 MG Albuterol Sulfate (Ventolin 0.083% 2.5MG/3ML Neb) 2.5 mg Q4R PRN INH 01/13/17 21:45 02/12/17 21:44 Codeine Phosphate/ Guaifenesin (Robitussin-AC Sugar Free Syrup) 5 ml Q6H PRN PO 01/13/17 21:45 02/12/17 21:44 Acetaminophen (Tylenol Tab) 650 mg Q4H PRN PO 01/13/17 22:00 02/12/17 21:59 Al Hydrox/Mg Hydrox/Simethicone (Maalox Max Susp) 15 ml Q4H PRN PO 01/13/17 22:00 02/12/17 21:59 Magnesium Hydroxide (Milk Of Magnesia Susp) 30 ml Q12H PRN PO 01/13/17 22:00 02/12/17 21:59 Ondansetron HCl (Zofran Inj) 4 mg Q6H PRN IV 01/13/17 22:00 02/12/17 21:59 Nitroglycerin (Nitrostat Tab) 0.4 mg UD PRN SL 01/13/17 22:00 02/12/17 21:59 Morphine Sulfate (MoRPHine SULFATE INJ) 2 mg Q30M PRN IV 01/13/17 22:00 01/27/17 21:59 Polyethylene (Miralax Powder Packet) 17 gm DAILY PRN PO 01/13/17 22:00 02/12/17 21:59 Miscellaneous (Fentanyl Patch Remove & Waste) 1 ea Q3D N/A 01/13/17 22:59 02/12/17 22:58 01/16/17 23:03 1 EA Miscellaneous Information (Check Fentanyl Patch Placement) 1 ea QS N/A 01/14/17 08:00 02/13/17 07:59 01/19/17 15:57 1 EA Heparin Sodium (Porcine) (Heparin Sq 5000 Unit/0.5ml) 5,000 unit Q8 SQ 01/16/17 08:00 02/15/17 07:59 01/19/17 14:39 5,000 UNIT Enteral Nutritional Formula (Boost Plus Vanilla) 1 can [id number] PO 01/16/17 07:00 02/15/17 06:59 01/19/17 14:37 1 CAN Imipenem/ Cilastatin Sodium 500 mg/Dextrose 110 ml @ 110 mls/hr Q6H IV 01/16/17 10:00 01/30/17 09:59 01/19/17 15:58 110 MLS/HR Potassium Chloride (Klor-Con Tab) 40 meq QAM PO 01/17/17 09:00 02/13/17 08:59 01/19/17 09:55 40 MEQ Oxycodone HCl (Roxicodone Immediate Rel Tab) 20 mg Q6 PRN PO 01/17/17 12:00 01/28/17 18:44 01/17/17 21:52 20 MG Albuterol/ Ipratropium (Combivent Respimat Inh) 1 puffs Q6 INH 01/18/17 12:00 02/17/17 11:59 01/19/17 14:36 1 PUFFS Albuterol/ Ipratropium (Duoneb) 3 ml Q6R PRN INH 01/18/17 10:45 02/13/17 02:59 Heparin Sodium (Porcine) (Heparin 10 Unit/ ml 5 ml Flush) 5 ml PRN PRN FLUSH 01/19/17 13:00 02/18/17 12:59 01/19/17 14:21 5 ML Objective Vital Signs Date Time Temp Pulse Resp B/P (MAP) Pulse Ox O2 Delivery O2 Flow Rate FiO2 01/19/17 15:28 37.1 70 16 143/87 (105) 95 Room Air 01/19/17 09:38 71 18 144/87 (106) 96 Room Air 01/19/17 07:25 Room Air 01/19/17 07:03 36.7 71 18 152/97 (115) 96 Room Air 01/18/17 23:37 Room Air 01/18/17 22:57 37.0 88 18 128/82 (97) 96 Room Air 01/18/17 21:08 130/75 (93) Physical Exam General Appearance: no apparent distress, + obese Eyes: normal inspection, EOMI, sclerae normal ENT: normal ENT inspection, hearing grossly normal, pharynx normal Neck: supple, no adenopathy, no JVD, trachea midline Respiratory/Chest: chest non-tender, lungs clear, normal breath sounds, no respiratory distress, no accessory muscle use Cardiovascular: regular rate, rhythm, no edema, no gallop, no JVD, no murmur Abdomen: normal bowel sounds, non tender, soft, no organomegaly Extremities: + pertinent finding (left BKA, wound vac in place) 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, no motor/sensory deficits, alert, normal mood/affect, oriented x 3 Skin: normal color, warm/dry, no rash Laboratory Results Last 24 Hours Test 01/19/17 06:02 White Blood Count 8.84 K/uL Red Blood Count 3.18 M/uL Hemoglobin 10.5 g/dL Hematocrit 32.6 % Mean Corpuscular Volume 102.5 fL Mean Corpuscular Hemoglobin 33.0 pg Mean Corpuscular Hemoglobin Concent 32.2 g/dl Platelet Count 183 K/uL Mean Platelet Volume 9.3 fL Neutrophils (%) (Auto) 63.4 % Lymphocytes (%) (Auto) 24.7 % Monocytes (%) (Auto) 8.7 % Eosinophils (%) (Auto) 1.8 % Basophils (%) (Auto) 0.3 % Neutrophils # (Auto) 5.60 K/uL Lymphocytes # (Auto) 2.18 K/uL Monocytes # (Auto) 0.77 K/uL Eosinophils # (Auto) 0.16 K/uL Basophils # (Auto) 0.03 K/uL RDW Standard Deviation 49.5 fL RDW Coefficient of Variation 13.2 % Immature Granulocyte % (Auto) 1.1 % Immature Granulocyte # (Auto) 0.10 K/uL Sodium Level 142 mmol/L Potassium Level 3.7 mmol/L Chloride Level 112 mmol/L Carbon Dioxide Level 23 mmol/L Anion Gap 7.0 mmol/L Blood Urea Nitrogen 9 mg/dl Creatinine 0.81 mg/dl Est Creatinine Clear Calc Drug Dose 113.0 ml/min Estimated GFR () 105.8 Estimated GFR (Non- 91.3 BUN/Creatinine Ratio 11.5 Random Glucose 106 mg/dl Calcium Level 8.3 mg/dl Magnesium Level 2.2 mg/dl Assessment and Plan 66 y/o M with complex medical history including chronic systolic CHF, severe PAD , chronic AF, VT, Factor V Leiden mutation - resultant DVT/PE, HPL, HTN, chronic lower extremity ulcers, COPD. Resides at [facility] and was transferred to the ER yesterday due to lethargy, cough and persistent high fever. 1) sepsis- likely source is the left BKA site with bacteremia, Pseudomonas, resistant to Zosyn - CT scan confirmed pocket of fluid. -Consulted Gen. Surgery and patient had an I and D -wound vac in place - treating bacteremia with Imipenem due to prolonged QT on EKG - plan for 14 days total of Imipenem 2) COPD -hypoxia resolved, breathing room air this AM continue routine maintenance inhalers 3) chronic Systolic CHF - cont ARB, Carvedilol. Patient does not appear to be dehydrated as no signs of ARTURO 4) CAD - Trop is elevated but represents a value below baseline - no evidence of ACS at present - cont B russ, ASA, Statin 5) AF - rate controlled - cont B russ - xarelto on hold due too bleeding 6) PVD - Follows with vascular surgery and wound care - cont ASA 7) Factor V mutation - Hx DVT/PE - cont Xarelto 8) Gout - cont Allopurinol 9) Hypokalemia: increase PO morning dose to 40mEq d/c on 01/20 Continued [facility] stay due to: fever, multiple IV medications needed Discharge planning: uncertain
[2017-01-20] MEDS ORDERED: IMIP250I IV (14:14)
--- NOTE | 2017-01-20 14:20 | Discharge Instructions ---
Discharge Instructions Date of Service Jan 20, 2017. Admission Reason for Admission: Pseudomonas bacteremia from leg wound Discharge Discharge Diagnosis / Problem: Pseudomonas bacteremia Discharge Goals Goal(s): Decrease discomfort, Improve function Activity Recommendations Activity Level: Assistance Required Therapies: Physical Therapy, Occupational Therapy Shower/Bathe: keep incision dry . Additional Information Patient informed of condition: Yes Advance Directives: No DNR: No Level of Care: Skilled Communicable Disease: No Prognosis: Stable Oxygen at (LPM): no Rincon Catheter: Yes Instructions / Follow-Up Instructions / Follow-Up Medications: - IMIPENEM: complete 7 more days for Pseudomonas bacteremia, repeat blood cultures clear FOLLOW UP - Dr. Mejia next week for wound care follow up - physician at [facility] this week Current Hospital Diet Patient's current hospital diet: Low Sodium Diet (2gm Na) Discharge Diet Recommended Diet: Low Sodium Diet (2gm Na) Procedures Procedures Performed: Left Incision and Drainage Below Knee Amputation Abscess Pending Studies Studies pending at discharge: no Physician Orders On Transfer Dressing Changes: per wound care, TO LEFT STUMP WOUND- REMOVE/CHANGE ONLY OUTER GAUZE. LEAVE ADAPTIC IN PLACE. DO NOT IRRIGATE WOUND. COVER WITH 4X4'S AND ABD'S. DO NOT ALLOW WET DRESSINGS TO REMAIN ON PATIENT. TO RIGHT LOWER LEG- WASH LEG CLEAN WOUNDS WITH SALINE. COVER OPEN AREAS WITH AQUACEL AG, ABD'S AND SECURE WITH KERLIX. CHANGE EVERY OTHER DAY AND NEEDED. FOLLOW-UP AT [facility]. DR MEJIA HAS BEEN FOLLOWING. CALL [phone] FOR APPOINTMENT IV Therapy: Imipenem 500mg IV q6 for 7 more days Vital Signs: per protocol Medical Emergencies . Who to Call and When: Medical Emergencies: If at any time you feel your situation is an emergency, please call 911 immediately. . Non-Emergent Contact Non-Emergency issues call your: Primary Care Provider Call Non-Emergent contact if: you have a fever, you have any medication questions . . "Provider Documentation" section prepared by Tuan Darby. . Core Measure Problem Core Measures: None [place] Drug Monitoring Program Search Results: no issues identified
[2017-01-20] MEDS ORDERED: BOOST VANILLA PO SCH ×2 (17:45)
--- NOTE | 2017-01-21 08:48 | Discharge Summary ---
Discharge Summary Date of Service Jan 20, 2017. Discharge Summary Admission Date: Jan 13, 2017 at 21:49 Discharge Date: Jan 20, 2017 Discharge Disposition: intermediate facility Principal Diagnosis: Pseudomonas bacteremia Problems/Secondary Diagnoses: Peripheral artery disease HTN h/o L BKA Chronic systolic heart failure Atrial fibrillation H/o DVT and PE COPD Immunizations: Have You Had Influenza Vaccine: Yes Influenza Vaccine Date: Apr 16, 2012 History of Tetanus Vaccine?: No History of Pneumococcal: Yes Pneumococcal Date: Feb 03, 2007 History of Hepatitis B Vaccine: No Procedures: Left stump abscess I&D Wound vac placement Consultations: General surgery Infectious disease Wound care provider Medication Reconciliation New Medications: Imipenem-Cilastatin (Primaxin Iv) 1 Inj Inj 500 MG IV Q6 for 7 Days Continued Medications: Acetaminophen (Tylenol) 500 Mg Tab 1000 MG PO BID, TAB Acetaminophen Tab (Tylenol) 325 Mg Tab 325 MG PO Q6H PRN for Pain, TAB Allopurinol (Zyloprim) 100 Mg Tab 100 MG PO QAM, TAB Aluminum/Magnesium/Simeth (Maalox Max Susp) Susp 30 ML PO Q6H PRN for RN Artificial Tears (Artificial Tears) Kika 1-2 DROPS OP QID, #1 BTL TO AFFECTED EYE PRN Ascorbic Acid (Vitamin C) 500 Mg Cap 500 MG PO QAM Aspirin (Aspirin Ec) 81 Mg Tab 81 MG PO QAM Carvedilol (Carvedilol) 3.125 Mg Tab 9.375 MG PO BID Fentanyl (Fentanyl) 50 Mcg Tdsy 50 MCG TD [id number] Ferrous Sulfate (Ferrous Sulfate) 325 Mg Tab 325 MG PO BID TAKE WITH FOOD Fluticasone Prop/Salmeterol (Advair Diskus 500/50 60 Dose) 1 Ea Aerp 1 PUFFS INH BID for 30 Days, #1 INHALER 5 Refills Furosemide (Lasix) 40 Mg Tab 60 MG PO QAM, TAB Gabapentin (Neurontin) 100 Mg Cap 200 MG PO QAM, CAP Gabapentin (Neurontin) 300 Mg Cap 600 MG PO HS, CAP Guaifenesin (Robitussin) 100 Mg/5 Ml Kika 10 ML PO Q6H PRN for Cough diabetic tussin 100mg/5ml Ipratropium-Albuterol (Combivent Respimat) 1 Aer Aer 1 PUFFS INH Q6H, INH WHILE AWAKE Isosorbide Mononitrate (Imdur Ext Rel) 60 Mg Tab 60 MG PO QAM, TAB Lorazepam (Ativan) 0.5 Mg Tab 0.5 MG PO BID PRN for Anxiety/Insomnia, TAB Losartan Potassium (Cozaar) 25 Mg Tab 25 MG PO QAM, TAB Magnesium Hydroxide (Milk Of Magnesia) 30 Ml Susp 30 ML PO PRN for Constipation, ML day 2 per protocol Multiple Vitamins W/ Minerals (Thera M Plus) 1 Tab Tab 1 TAB PO QAM Potassium Chloride (Micro-K Ext Rel) 10 Meq Capcr 20 MEQ PO QAM, CAP Prune Juice (Prune Juice ) Liqd 8 OZ PO prune juice, prunes or other fiber on day 1 of protocol per pt preference Ranitidine Hcl (Zantac) 150 Mg Tab 150 MG PO BID, TAB Rivaroxaban (Xarelto) 20 Mg Tab 20 MG PO HS, TAB Sertraline (Zoloft) 100 Mg Tab 200 MG PO QAM, TAB Simvastatin (Zocor) 40 Mg Tab 40 MG PO QPM, TAB Sodium Phosphate/Biphosphate (Fleet Enema) Veronica 1 EA MI DAILY, BTL day four per protocol Topiramate (Topamax) 100 Mg Tab 100 MG PO BID, TAB Discharge Exam Patient feeling well on day of discharge, ready to go back to [facility]. He discussed that he would want to go somewhere else, a different SNF. Discussed with him that things were set up for [facility], that he could get another week of IV Imipenem and wound vac. He can look into another SNF once there. Eating well, breathing is stable, moving bowels. Review of Systems: Eyes: No worsening of vision, No eye pain, No redness, No discharge, No diplopia, No problem reported ENT: No hearing loss, No unusual epistaxis, No nasal symptoms, No sore throat, No tinnitus, No dental problems, No trouble swallowing, No problem reported Respiratory: No cough, No sputum, No wheezing, No shortness of breath, No dyspnea on exertion, No dyspnea at rest, No hemoptysis, No problem reported Cardiovascular: No chest pain, No orthopnea, No PND, No edema, No claudication, No palpitations, No problem reported Abdomen: No pain, No nausea, No vomiting, No diarrhea, No constipation, No GI bleeding, No problem reported Musculoskeletal: No joint pain, No muscle pain, No swelling, No calf pain, No problem reported Genitourinary - Male: + problem reported (aldrich) Neurologic: + weakness, + balance problems Psychiatric: No depression symptoms, No anhedonism, No anxiety, No insomnia , No substance abuse, No problem reported Endocrine: No fatigue, No excessive thirst, No excessive urination, No problem reported Hematologic / Lymphatic: No abnormal bleeding/bruising, No clotting problems , No swollen lymph nodes, No night sweats, No problem reported Integumentary: + problem reported (severe PAD changes in skin bilaterally, left stump abscess with wound vac) Physical Exam: General Appearance: no apparent distress, + obese Eyes: normal inspection, EOMI, sclerae normal ENT: normal ENT inspection, hearing grossly normal, pharynx normal Neck: supple, no adenopathy, no JVD, trachea midline Respiratory/Chest: chest non-tender, lungs clear, normal breath sounds, no respiratory distress, no accessory muscle use Cardiovascular: regular rate, rhythm, no edema, no gallop, no JVD, no murmur , normal peripheral pulses Abdomen / GI: normal bowel sounds, non tender, soft, no organomegaly Extremities: no calf tenderness, no pedal edema, normal range of motion, pelvis stable, + slow capillary refill, + pertinent finding (skin changes with PAD, cool extremities) 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 Resides at [facility] and was transferred to the ER yesterday due to lethargy, cough and persistent high fever. 1) sepsis- likely source is the left BKA site with bacteremia, Pseudomonas, resistant to Zosyn - CT scan confirmed pocket of fluid. -Consulted Gen. Surgery and patient had an I and D performed by Dr. Wills -wound vac in place on 01/19 - treating bacteremia with Imipenem due to prolonged QT on EKG - plan for 14 days total of Imipenem, 7 more days of treatment needed, script provided 2) COPD -hypoxia resolved quickly and transitioned to room air continue routine maintenance inhalers no wheezing on exam for several days, just decreased breath sounds 3) chronic Systolic CHF - continue ARB, Carvedilol. patient has been euvolemic continue to follow weights 4) CAD - no evidence of ACS at present - cont B russ, ASA, Statin 5) AF - rate controlled - cont B russ - Xarelto resumed now that surgery completed 6) PVD - Follows with vascular surgery and wound care - cont ASA 7) Factor V mutation - Hx DVT/PE - cont Xarelto 8) Gout - cont Allopurinol 9) Hypokalemia: continue daily supplementation Total Time Spent: Greater than 30 minutes This includes examination of the patient, discharge planning, medication reconciliation, and communication with other providers. Discharge Instructions Please refer to the electronic Patient Visit Report (Discharge Instructions) for additional information. Follow-Up Dr. Ignacio at [facility] in one week Wound clinic in one week Additional Copies To [facility]; Shaka Bush, DO
[2017-01-25] MEDS ORDERED: IMIP1INJ5 IV (07:45)
[2017-02-17] MEDS ORDERED: CLC/300 PO (13:35)
== END 2017-01-20 15:00 | DRG 564 ==
LOC: EDBD 19:16 → C.EDA 19:17 → C.2E 21:49 → EEVIPCON 21:49 → ENRESERV 21:57 → EDBEDREQSVC 01-17 11:53 → ENRESERV 01-17 12:42 → C.MSW 01-17 13:34
PROVIDERS: ADMIT Internal Medicine; ATTEND Internal Medicine
PROC: 0J9P0ZX Drainage of Left Lower Leg Subcutaneous Tissue and Fascia, Open Approach, Diagnostic (ICD-10-PCS; principal; 2017-01-15 13:00)
PROC: 02HV33Z Insertion of Infusion Device into Superior Vena Cava, Percutaneous Approach (ICD-10-PCS; 2017-01-18)
DX: T87.44 Infection of amputation stump, left lower extremity (principal); Y83.5 Amputation of limb(s) as the cause of abnormal reaction of the patient, or of later complication, without mention of misadventure at the time of the procedure; A41.89 Other specified sepsis; L02.416 Cutaneous abscess of left lower limb; L03.116 Cellulitis of left lower limb; I50.22 Chronic systolic (congestive) heart failure; I48.92 Unspecified atrial flutter; D68.51 Activated protein C resistance; B96.5 Pseudomonas (aeruginosa) (mallei) (pseudomallei) as the cause of diseases classified elsewhere; R09.02 Hypoxemia; J44.9 Chronic obstructive pulmonary disease, unspecified; E87.6 Hypokalemia; L89.899 Pressure ulcer of other site, unspecified stage; Z16.29 Resistance to other single specified antibiotic; I48.2 Chronic atrial fibrillation; I11.0 Hypertensive heart disease with heart failure; I70.209 Unspecified atherosclerosis of native arteries of extremities, unspecified extremity; I25.2 Old myocardial infarction; I25.10 Atherosclerotic heart disease of native coronary artery without angina pectoris; M10.9 Gout, unspecified; K21.9 Gastro-esophageal reflux disease without esophagitis; E78.5 Hyperlipidemia, unspecified; G43.909 Migraine, unspecified, not intractable, without status migrainosus; F41.9 Anxiety disorder, unspecified; E66.3 Overweight; Z79.899 Other long term (current) drug therapy; Z79.01 Long term (current) use of anticoagulants; Z79.82 Long term (current) use of aspirin; Z79.891 Long term (current) use of opiate analgesic; Z87.442 Personal history of urinary calculi; Z85.46 Personal history of malignant neoplasm of prostate; Z86.718 Personal history of other venous thrombosis and embolism; Z86.711 Personal history of pulmonary embolism; Z95.810 Presence of automatic (implantable) cardiac defibrillator; Z68.33 Body mass index [BMI] 33.0-33.9, adult; Z82.49 Family history of ischemic heart disease and other diseases of the circulatory system

== ENCOUNTER → 2017-01-28 | Outpatient (CLI) | payer OTHER ==
[~2017-01-28] MED LIST changes: -ATOR-54 PO; -CARV6.252 PO; +CRG3125 PO; +DRGTP50 TD; -FENT50DI19 TD; +IMIP1INJ5 IV; +IMIP250I IV; +MULT-17 PO; -ROBITUSSIN DM PO; +SIMV40TA2 PO; -[UNRECOGNIZED DRUG - CODE] PO; -[UNRECOGNIZED DRUG - CODE] PO; -dulcolax supp RE
[2017-01-28 09:01] LABS: HEMATOCRIT 35.8 % (42-52); MEAN CELL VOLUME 104.1 fL (80-100); MEAN CORPUSCULAR HEMOGLOBIN 33.1 pg (25-34); MEAN CORPUSCULAR HGB CONC 31.8 g/dl (32-36); MEAN PLATELET VOLUME 9.7 fL (7.4-10.4); PLATELET COUNT 332 K/uL (130-400); RED BLOOD COUNT 3.44 M/uL (4.7-6.1); WHITE BLOOD COUNT 7.64 K/uL (4.8-10.8)
[2017-01-28 09:09] LABS: BLOOD UREA NITROGEN 9 mg/dl (7-18); BUN/CREATININE RATIO 10.1 (10-20); CALCIUM 8.7 mg/dl (8.5-10.1); CARBON DIOXIDE 27 mmol/L (21-32); CHLORIDE 111 mmol/L (98-107); CREATININE 0.86 mg/dl (0.60-1.40); GLUCOSE 117 mg/dl (70-99); POTASSIUM 3.7 mmol/L (3.5-5.1); SODIUM 144 mmol/L (136-145)
== END ==
LOC: C.LABCC 08:33
PROVIDERS: ATTEND Internal Medicine
DX: I73.9 Peripheral vascular disease, unspecified (principal)

== ENCOUNTER → 2017-02-24 | Outpatient (CLI) | payer OTHER ==
[~2017-02-24] MED LIST changes: +CLC/300 PO
[2017-02-24 09:39] LABS: CHOLESTEROL/HDL RATIO 3.5; THYROID STIMULATING HORMONE 0.579 uIu/ml (0.300-4.500)
== END | disposition home or self-care (01) ==
LOC: C.LABCC 08:34
PROVIDERS: ATTEND Internal Medicine
DX: E78.5 Hyperlipidemia, unspecified (principal); I10 Essential (primary) hypertension; F17.200 Nicotine dependence, unspecified, uncomplicated; I73.9 Peripheral vascular disease, unspecified

== ENCOUNTER → 2017-03-23 | Outpatient (CLI) | payer OTHER ==
[~2017-03-23] MED LIST changes: -IMIP1INJ5 IV
[2017-03-23 08:25] LABS: ALT/SGPT 15 U/L (12-78); BLOOD UREA NITROGEN 14 mg/dl (7-18); BUN/CREATININE RATIO 14.2 (10-20); CALCIUM 8.4 mg/dl (8.5-10.1); CARBON DIOXIDE 25 mmol/L (21-32); CHLORIDE 110 mmol/L (98-107); CHOLESTEROL 123 mg/dl (0-200); CREATININE 0.95 mg/dl (0.60-1.40); GLUCOSE 118 mg/dl (70-99); POTASSIUM 3.5 mmol/L (3.5-5.1); SODIUM 141 mmol/L (136-145); TRIGLYCERIDES 122 mg/dl (0-150); VERY LOW DENSITY LIPOPROT CALC 24 mg/dl
[2017-03-23 08:28] LABS: ALB/GLOB RATIO 0.7 (0.9-2); ALKALINE PHOSPHATASE 69 U/L (45-117); AST/SGOT 17 U/L (15-37); CHOLESTEROL/HDL RATIO 4.7; HDL CHOLESTEROL 26 mg/dl; LDL CHOLESTEROL CALCULATED 73 mg/dl
== END ==
LOC: C.LABCC 08:00
PROVIDERS: ATTEND Internal Medicine
DX: E78.5 Hyperlipidemia, unspecified (principal)

== ENCOUNTER → 2017-03-25 | Outpatient (CLI) | payer OTHER ==
[~2017-03-25] MED LIST changes: +BISA10SU38 PR; +DOXY1TAB6 PO; +LEVO-18 PO; +NRN/600 PO; +POLY99.0 OPB; +RXCS PO; +WHITOIN3 OPB
[2017-03-25 09:37] LABS: BASO % 0.2 %; BASO ABS # 0.02 K/uL (0-0.2); COMPLETE YES; EOS % 1.9 %; HEMATOCRIT 39.7 % (42-52); IG% 0.2 %; LYMPH % 18.1 %; MEAN CELL VOLUME 101.3 fL (80-100); MEAN CORPUSCULAR HEMOGLOBIN 31.4 pg (25-34); MEAN PLATELET VOLUME 10.2 fL (7.4-10.4); MONO % 8.9 %; NEUT % 70.7 %; PLATELET COUNT 199 K/uL (130-400); RED BLOOD COUNT 3.92 M/uL (4.7-6.1); WHITE BLOOD COUNT 8.31 K/uL (4.8-10.8)
[2017-03-25 09:43] LABS: ALT/SGPT 17 U/L (12-78); BLOOD UREA NITROGEN 15 mg/dl (7-18); CALCIUM 8.9 mg/dl (8.5-10.1); CARBON DIOXIDE 27 mmol/L (21-32); CHLORIDE 109 mmol/L (98-107); CREATININE 1.05 mg/dl (0.60-1.40); GLUCOSE 103 mg/dl (70-99); POTASSIUM 3.8 mmol/L (3.5-5.1); SODIUM 140 mmol/L (136-145)
[2017-03-25 09:46] LABS: ALB/GLOB RATIO 0.7 (0.9-2); ALKALINE PHOSPHATASE 85 U/L (45-117); AST/SGOT 16 U/L (15-37)
== END ==
LOC: C.LABCC 09:06
PROVIDERS: ATTEND Internal Medicine
DX: R53.83 Other fatigue (principal); I95.9 Hypotension, unspecified

== ENCOUNTER 2017-03-30 05:38 | Emergency (ER) | payer OTHER ==
[~2017-03-30] VITALS: Ht 190.5 cm; Wt 106.8 kg
[2017-03-30 05:38] VITALS: Ht 190.5 cm; Wt 106.8 kg
[~2017-03-30 05:38] MED LIST changes: -BISA10SU38 PR; -DOXY1TAB6 PO; -LEVO-18 PO; -NRN/600 PO; -POLY99.0 OPB; -RXCS PO; -WHITOIN3 OPB
--- NOTE | 2017-03-30 06:02 | EMERGENCY ROOM VISIT NOTE ---
History Report prepared by Steve: Diomedes Aranda Under the Supervision of: Dr. Fabiola Velasquez D.O. First contact with patient: 05:40 Stated Complaint: RT. GROIN PAIN History of Present Illness The patient is a 66 year old male who presents to the Emergency Room with complaints of right groin pain that occurred last night. The patient has a history of a bypass procedure that was done 4 months ago through the patient's right groin. The staff at [facility] states that he was complaining of right groin pain last night. They noticed a some redness, swelling, and a large lump to the area which they pressed on. They expressed some pus from the area. They sent the patient here for IV antibiotics. He has not been eating normally because he does not have much of an appetite. He states that he is having some pain to his right ankle and right foot secondary to previous wounds. Source of History: patient Onset: last night Position: other (Right groin) Symptom Intensity: moderate Quality: ache Timing: constant Note: He is having some right ankle and foot pain secondary to previous wounds. He is having some redness and swelling to the right groin as well. He denies any other abnormal symptoms. Review of Systems See HPI for pertinent positives & negatives. A total of 10 systems reviewed and were otherwise negative. 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 (3) Atrial fibrillation (4) Atrial flutter (5) Benign hypertension (6) Carcinoma of prostate (7) Chronic congestive heart failure (8) Gastroesophageal reflux disease (9) History of - pulmonary embolus (10) Hyperlipidemia (11) Hypoxemia (12) Migraine (13) Sepsis due to pneumonia (14) uti Family History FHx: ischemic heart disease Social History Smoking Status: Current Every Day Smoker Alcohol Use: occasionally Drug Use: none Marital Status: Housing Status: skilled nursing Occupation Status: disabled Current/Historical Medications Scheduled Acetaminophen (Tylenol), 1,000 MG PO BID Allopurinol (Zyloprim), 100 MG PO QAM Ascorbic Acid (Vitamin C), 500 MG PO QAM Aspirin (Aspirin Ec), 81 MG PO QAM Carvedilol (Carvedilol), 9.375 MG PO BID Clindamycin HCl (Clindamycin HCl), 1 CAP PO BID Fentanyl (Fentanyl), 50 MCG TD CQ72HR Ferrous Sulfate (Ferrous Sulfate), 325 MG PO BID Fluticasone Prop/Salmeterol (Advair Diskus 500/50 60 Dose), 1 PUFFS INH BID Furosemide (Lasix), 60 MG PO QAM Gabapentin (Neurontin), 200 MG PO QAM Gabapentin (Neurontin), 600 MG PO HS Imipenem-Cilastatin (Primaxin Iv), 500 MG IV Q6 Ipratropium-Albuterol (Combivent Respimat), 1 PUFFS INH Q6H Isosorbide Mononitrate (Imdur Ext Rel), 60 MG PO QAM Levofloxacin (Levaquin), 1 TAB PO DAILY Losartan Potassium (Cozaar), 25 MG PO QAM Multiple Vitamins W/ Minerals (Thera M Plus), 1 TAB PO QAM Potassium Chloride (Micro-K Ext Rel), 20 MEQ PO QAM Ranitidine Hcl (Zantac), 150 MG PO BID Rivaroxaban (Xarelto), 20 MG PO HS Sertraline (Zoloft), 200 MG PO QAM Simvastatin (Zocor), 40 MG PO QPM Sodium Phosphate/Biphosphate (Fleet Enema), 1 EA MA DAILY Topiramate (Topamax), 100 MG PO BID Scheduled PRN Acetaminophen Tab (Tylenol), 650 MG PO Q6H PRN for Pain Aluminum/Magnesium/Simeth (Maalox Max Susp), 30 ML PO Q6H PRN for RN Guaifenesin (Robitussin), 10 ML PO Q6H PRN for Cough Lorazepam (Ativan), 0.5 MG PO BID PRN for Anxiety/Insomnia Magnesium Hydroxide (Milk Of Magnesia), 30 ML PO for Constipation Polyvinyl Alcohol (Artificial Tears), 2 DROPS OPB QID PRN for DRYNESS Miscellaneous Medications Prune Juice (Prune Juice ), 8 OZ PO Allergies Coded Allergies: Neomycin (Verified Allergy, Intermediate, RED, SORE, 03/30/17) Bacitracin (Verified Allergy, Unknown, unknown, 03/30/17) Kiwi (Verified Allergy, Unknown, itchy, 03/30/17) Polymyxin B (Verified Allergy, Unknown, unknown, 03/30/17) Morphine (Verified Adverse Reaction, Intermediate, HALLUCINATION, CONFUSION,AGITATION, 03/30/17) Physical Exam Vital Signs Date Time Temp Pulse Resp B/P (MAP) Pulse Ox O2 Delivery O2 Flow Rate FiO2 03/30/17 06:38 86 18 03/30/17 06:21 124/96 97 Room Air 03/30/17 06:13 90 03/30/17 06:07 Room Air 03/30/17 05:41 130/90 03/30/17 05:38 37.2 98 20 130/90 97 Room Air Physical Exam General: Pleasant. HEENT: Head - normocephalic and atraumatic Pupils are equal, round, and reactive to light. Extraocular eye muscles are intact, and sclera are anicteric. Nose - moist nasal mucosa without discharge. Mouth - moist buccal mucosa. Oropharynx is nonerythematous and there is no tonsillar exudate or edema noted. Neck: Supple; no JVD, nuchal rigidity, cervical lymphadenopathy. Heart: Regular rate and rhythm. There is a normal S1 and S2 with no murmurs, clicks, or gallops appreciated. Lungs: Clear to auscultation bilaterally with no wheezes, rales, or rhonchi. Abdomen: Soft, completely nontender, nondistended, with good bowel sounds. There are no palpable pulsatile masses or hepatosplenomegaly. There is no guarding, rigidity, or rebound noted. Groin: There is an open wound from a previous surgical procedure to the right groin that is draining pus. There is moderate surrounding erythema and induration. Extremities: Severe vascular disease to the right lower extremity. Leg lower extremity with a BKA. Skin: Mildly pale, warm and dry with good turgor and no rashes. Medical Decision & Procedures ER Provider Diagnostic Interpretation: Radiology results as stated below per my review and the radiologist's interpretation: CHEST X-RAY 1 VIEW: Pacemaker in place, cardiomegaly, elevated left hemidiaphragm, and mild congestive failure. Laboratory Results 03/30/17 05:55 Red Blood Count 3.83, Mean Corpuscular Volume 100.0, Mean Corpuscular Hemoglobin 31.9, Mean Corpuscular Hemoglobin Concent 31.9, Neutrophils (%) (Auto ) 80.5, Lymphocytes (%) (Auto) 11.2, Monocytes (%) (Auto) 7.5, Eosinophils (%) ( Auto) 0.3, Basophils (%) (Auto) 0.1, Neutrophils # (Auto) 13.09, Lymphocytes # ( Auto) 1.82, Monocytes # (Auto) 1.22, Eosinophils # (Auto) 0.05, Basophils # ( Auto) 0.02 03/30/17 05:55 Test 03/30/17 05:55 03/30/17 06:08 03/30/17 06:48 White Blood Count 16.27 K/uL (4.8-10.8) Red Blood Count 3.83 M/uL (4.7-6.1) Hemoglobin 12.2 g/dL (14.0-18.0) Hematocrit 38.3 % (42-52) Mean Corpuscular Volume 100.0 fL (80-100) Mean Corpuscular Hemoglobin 31.9 pg (25-34) Mean Corpuscular Hemoglobin Concent 31.9 g/dl (32-36) Platelet Count 220 K/uL (130-400) Neutrophils (%) (Auto) 80.5 % Lymphocytes (%) (Auto) 11.2 % Monocytes (%) (Auto) 7.5 % Eosinophils (%) (Auto) 0.3 % Basophils (%) (Auto) 0.1 % Neutrophils # (Auto) 13.09 K/uL (1.4-6.5) Lymphocytes # (Auto) 1.82 K/uL (1.2-3.4) Monocytes # (Auto) 1.22 K/uL (0.11-0.59) Eosinophils # (Auto) 0.05 K/uL (0-0.5) Basophils # (Auto) 0.02 K/uL (0-0.2) Immature Granulocyte % (Auto) 0.4 % Immature Granulocyte # (Auto) 0.07 K/uL (0.00-0.02) Anion Gap 7.0 mmol/L (3-11) Est Creatinine Clear Calc Drug Dose 89.8 ml/min Estimated GFR () 85.1 Estimated GFR (Non- 73.4 BUN/Creatinine Ratio 17.4 (10-20) Calcium Level 9.2 mg/dl (8.5-10.1) Total Bilirubin 0.9 mg/dl (0.2-1) Aspartate Amino Transf (AST/SGOT) 60 U/L (15-37) Alanine Aminotransferase (ALT/SGPT) 27 U/L (12-78) Alkaline Phosphatase 94 U/L (45-117) Total Protein 8.2 gm/dl (6.4-8.2) Albumin 3.1 gm/dl (3.4-5.0) Globulin 5.1 gm/dl (2.5-4.0) Albumin/Globulin Ratio 0.6 (0.9-2) Bedside Lactic Acid Venous 1.27 mmol/L (0.90-1.70) Prothrombin Time 12.2 SECONDS (9.0-12.0) Prothromb Time International Ratio 1.2 (0.9-1.1) Activated Partial Thromboplast Time 36.6 SECONDS (21.0-31.0) Partial Thromboplastin Ratio 1.4 Laboratory results per my review. Medications Administered Medications (Trade) Dose Ordered Sig/Emily Route Start Time Stop Time Status Last Admin Dose Admin Ceftriaxone Sodium (Rocephin Inj) 1 gm NOW STAT IV 03/30/17 06:50 03/30/17 06:53 DC 03/30/17 07:02 1 GM Levofloxacin (Levaquin Tab) 500 mg NOW STAT PO 03/30/17 06:50 03/30/17 06:53 DC 03/30/17 07:13 500 MG Procedure Levaquin Tab 500 mg PO Rocephin Inj 1 gm IV ED Course 0540: Past medical records reviewed. The patient was evaluated in room A3. A complete history and physical exam was performed. A septic protocol was performed. A chest x-ray was obtained. A culture was obtained from the wound in the right groin. 0650: I reviewed multiple previous cultures which revealed staph aureus, strep, and pseudomonas in the past. He will receive a dose of Rocephin IV and Levaquin orally here and then be sent back to [facility] with Levaquin. Ordered Levaquin Tab 500 mg PO, Rocephin Inj 1 gm IV 0657: I discussed the plan with him and the nurses. He is agreeable. 0715: Upon reevaluation, the patient received his antibiotic. I discussed findings and results with him. He verbalized agreement of the treatment plan. He was discharged home. Medical Decision The patient is a 66 year old male who presents to the ED with right groin pain. Differential diagnosis includes skin abscess, sepsis, and worsening vascular disease. Laboratory Results: Lactic acid 1.27, white blood cell count 16.2 which is elevated when compared to labs taken at [facility] five days ago which was 8.3, hemoglobin 12.2, normal renal function, glucose 108, LFTs normal except AFT was 60. This is a 58 -year-old male patient from [facility] to presents to the emergency department with pain in his right groin. It seems that the patient underwent a vascular procedure with Dr. Gomez a couple months ago. He began to complain of discomfort in the right groin approximately 24 hours ago. The staff at [facility] noticed pus draining from the wound in the right groin with some surrounding erythema. The patient is afebrile and has a normal lactic acid. His WBC increased significantly over the past 5 days. The patient has had multiple previous pseudomonas infections. He was given a dose of Rocephin here in the emergency department and will be discharged home on Levaquin. I've asked the staff to watch this wound closely. If he develops any fevers or increased pain, he should return to the emergency department. Otherwise he should continue Levaquin until the culture results are available. Medication Reconcilliation Current Medication List: was personally reviewed by me Blood Pressure Screening Patient's blood pressure: Normal blood pressure Blood pressure disposition: Did not require urgent referral Impression Primary Impression: Wound infection Scribe Attestation The scribe's documentation has been prepared under my direction and personally reviewed by me in its entirety. I confirm that the note above accurately reflects all work, treatment, procedures, and medical decision making performed by me. Departure Information Dispostion Home / Self-Care Prescriptions Levofloxacin (LEVAQUIN) 750 Mg Tab 1 TAB PO DAILY for 10 Days, #10 TAB Prov: Fabiola Velasquez D.O. 03/30/17 Referrals Sohail Ignacio M.D. (PCP) [facility] Forms HOME CARE DOCUMENTATION FORM, IMPORTANT VISIT INFORMATION, WORK / SCHOOL INSTRUCTIONS Patient Instructions ED Wound Infec After Surgery, [facility] Additional Instructions Rest. Take Levaquin daily. [facility] will be contacted with culture results. Return to the ER for worsening symptoms Watch the left groin closely for spreading redness Return to the ER for signs of sepsis
[2017-03-30 06:38] LABS: BUN/CREATININE RATIO 17.4 (10-20); CALCIUM 9.2 mg/dl (8.5-10.1); CREATININE 1.04 mg/dl (0.60-1.40); POTASSIUM 3.7 mmol/L (3.5-5.1)
[2017-03-30 06:41] LABS: ALB/GLOB RATIO 0.6 (0.9-2)
[2017-03-30 06:43] LABS: BASO % 0.1 %; BASO ABS # 0.02 K/uL (0-0.2); COMPLETE YES; EOS % 0.3 %; HEMATOCRIT 38.3 % (42-52); IG% 0.4 %; LYMPH % 11.2 %; LYMPH ABS # 1.82 K/uL (1.2-3.4); MEAN CORPUSCULAR HEMOGLOBIN 31.9 pg (25-34); MEAN CORPUSCULAR HGB CONC 31.9 g/dl (32-36); MONO % 7.5 %; NEUT % 80.5 %; PLATELET COUNT 220 K/uL (130-400); RED BLOOD COUNT 3.83 M/uL (4.7-6.1); WHITE BLOOD COUNT 16.27 K/uL (4.8-10.8)
--- NOTE | 2017-03-30 06:46 | DIAGNOSTIC IMAGING REPORT ---
CHEST ONE VIEW PORTABLE CLINICAL HISTORY: Sepsis dyspnea COMPARISON STUDY: 01/18/2017 FINDINGS: Permanent unipolar cardiac pacemaker/fibrillator in good position. Prior median sternotomy. Moderate prominence of pulmonary vasculature. Postoperative changes right axilla. IMPRESSION: Mild congestive failure. The above report was generated using voice recognition software. It may contain grammatical, syntax or spelling errors. Electronically signed by: Shaka Richardson M.D. 03/30/2017 6:45 AM Dictated Date/Time: 03/30/2017 6:44 AM
[2017-03-30] MEDS ORDERED: CEFTRIAXONE SOD INJ 1 GM ADDVIAL IV STA (06:50)
[2017-03-30] MEDS ORDERED: LEVOFLOXACIN 500 MG TAB PO STA (06:50)
[2017-03-30] MEDS ORDERED: LEVO-18 PO (07:04)
[2017-03-30 07:16] LABS: INR 1.2 (0.9-1.1); PARTIAL THROMBOPLASTIN RATIO 1.4; PROTHROMBIN TIME (PATIENT) 12.2 SECONDS (9.0-12.0)
[2017-03-30] MEDS ORDERED: POLY99.0 OPB (07:18)
[2017-03-30] MEDS ORDERED: DOXY1TAB6 PO (07:21)
[2017-03-30] MEDS ORDERED: BISA10SU38 PR (07:23)
[2017-03-30] MEDS ORDERED: WHITOIN3 OPB (07:26)
[2017-03-30] MEDS ORDERED: NRN/600 PO (07:28)
[2017-03-30] MEDS ORDERED: RXCS PO (07:31)
[2017-03-30 11:58] VITALS: BP 124/96; PULSE 83; TEMP 37.2; O2SAT 97
--- NOTE | 2017-04-02 10:05 | Pharmacy Progress Note ---
ED Pharmacist Culture FollowUp Date of Service: Apr 02, 2017. Patient presents from [facility] with a deep wound following a right groin vascular procedure 4 months ago that appears warm, red, with visible pus. Wound culture grew MRSA, susceptible to only vanc and daptomycin and proteus. Patient received a one time IV dose of rocephin in the ED and was discharged on levaquin to which the proteus is resistant. After discussing with Dr. Sheikh, I called the charge nurse at [facility] and informed her of culture results as well as our recommendation that the patient return for IV antibiotics. I also faxed a copy of the culture to [facility] ([phone]) and the charge nurse stated the physician, Dr. Pruett, would review and they would contact us with any further questions.
== END 2017-03-30 12:00 | disposition home or self-care (01) ==
LOC: EDBD 05:38 → C.EDA 05:39
DX: T81.4XXA Infection following a procedure, initial encounter (principal); X58.XXXA Exposure to other specified factors, initial encounter; I10 Essential (primary) hypertension; I48.91 Unspecified atrial fibrillation; E78.5 Hyperlipidemia, unspecified; I48.92 Unspecified atrial flutter; K21.9 Gastro-esophageal reflux disease without esophagitis; I50.9 Heart failure, unspecified; F41.9 Anxiety disorder, unspecified; F17.200 Nicotine dependence, unspecified, uncomplicated; Z87.440 Personal history of urinary (tract) infections; Z85.46 Personal history of malignant neoplasm of prostate; Z86.711 Personal history of pulmonary embolism; Z79.82 Long term (current) use of aspirin; Z79.899 Other long term (current) drug therapy; Z88.5 Allergy status to narcotic agent; Z88.8 Allergy status to other drugs, medicaments and biological substances; Z91.018 Allergy to other foods; Z82.49 Family history of ischemic heart disease and other diseases of the circulatory system

== ENCOUNTER 2017-04-02 10:41 | Inpatient (IN) | payer OTHER ==
[~2017-04-02] VITALS: Ht 180.3 cm; Wt 102.0 kg
[~2017-04-02 10:41] MED LIST changes: +ACET-1693 PO; -ACET325T96 PO; -ARTISOL8 OP; -ASCO1CAP3 PO; +BISA10SU38 PR; -CLC/300 PO; +DOXY1TAB6 PO; -GABA-113 PO; -IMIP250I IV; +LEVO-18 PO; -LORA-741 PO; -MULT-17 PO; +NRN/600 PO; +POLY99.0 OPB; +RXCS PO; +WHITOIN3 OPB
[2017-04-02] MEDS ORDERED: POLYETHYLENE (MIRALAX) 17 GM PACK PO PRN (13:30)
[2017-04-02] MEDS ORDERED: ALUMINUM/MAGNESIUM/SIMETH (MAALOX MAX) 30 ML UDC PO PRN ×2 (13:30→14:15)
[2017-04-02] MEDS ORDERED: ACETAMINOPHEN 325 MG TAB PO PRN ×2 (13:30→14:15)
[2017-04-02] MEDS ORDERED: ONDANSETRON INJ 2 MG/ML 2 ML VIAL IV PRN (13:30)
[2017-04-02] MEDS ORDERED: MAGNESIUM HYDROXIDE SUSP 30 ML UDC PO PRN ×2 (13:30→14:15)
--- NOTE | 2017-04-02 13:30 | NUR ---
A: Pt arrived to room via wheelchair. Alert and oriented x4. No complaints at this time. Pt is refusing to let RN assess/touch him. All assessments that can be visualized are documented. Refused to sign fall agreement. Requested to stay in wheelchair, refused assistance to bed. Call wilkins within reach. Encouraged to ring for assistance. Primary RN Monica updated.
[2017-04-02 13:36] VITALS: Ht 180.3 cm; Wt 102.0 kg
[2017-04-02] MEDS ORDERED: HEPARIN SOD 5000 UNIT/0.5 ML CARP SQ SCH (14:00)
[2017-04-02] MEDS ORDERED: OXYCODONE HCL 20 MG/1 ML UDP PO PRN (14:15)
[2017-04-02] MEDS ORDERED: GUAIFENESIN SUGAR FREE 100 MG/5 ML UDC PO PRN (14:15)
[2017-04-02] MEDS ORDERED: BISACODYL 10 MG SUPP PR PRN (14:15)
--- NOTE | 2017-04-02 14:37 | History and Physical ---
History & Physical Date & Time of Service: Apr 02, 2017 at 14:19 Chief Complaint: R Groin Cellulitis With Mrsa Primary Care Physician: Sohail Ignacio M.D. History of Present Illness Source: patient, clinic records, hospital records Patient is a 66 y/o male, with PMHx of chronic systolic CHF- EF 25-30%, VT- AICD placement, CAD- history of TN, Gout, Prostate CA, COPD, Chronic AF, HLD, HTN, Factor V Leiden mutation and h/o PE , Renetta's syndrome , Severe PAD s/p L BKA, s/p R iliac profundoplasty and stent, Chronic troponin elevation, recurrent UTIs, GERD, and anxiety, who was a direct admit from [facility] due to R groin cellulitis. Patient was seen in ED on 03/30/17 due to R groin pain, erythema, and drainage. Wound was cultured and he was discharged back to [facility] from ED on aquin. Wound cultures now growing MRSA and Proteus Mirabilis. Unable to get complete history, ROS, or assess R groin as patient is uncooperative. When asked about his R groin, he states "I don't know, I was out of it the other day." When asked if he has any complaints, he states "No." When I asked him to examine groin region to assess cellulitis, he states "Not right now." Per nursing staff, patient has been uncooperative since admission. Still sitting in wheelchair. Will not change. Will not let nursing complete physical assessment. Past Medical/Surgical History Medical Problems: Chronic systolic CHF- EF 25-30% VT- AICD placement CAD- history of TN Gout Prostate CA COPD Chronic AF HLD HTN Factor V Leiden mutation and h/o PE Renetta's syndrome Severe PAD L BKA R iliac profundoplasty and stent Chronic troponin elevation Recurrent UTIs GERD Anxiety Family History FHx: ischemic heart disease Social History Smoking Status: Current Every Day Smoker Drug Use: none Marital Status: Housing status: lives with family Occupational Status: disabled Immunizations History of Influenza Vaccine: Yes Influenza Vaccine Date: Apr 16, 2012 History of Tetanus Vaccine?: No History of Pneumococcal: Yes Pneumococcal Date: Feb 03, 2007 History of Hepatitis B Vaccine: No Multi-Drug Resistant Organisms History of MDRO: Yes Type of MDRO: MRSA Allergies Coded Allergies: Neomycin (Verified Allergy, Intermediate, RED, SORE, 03/30/17) Bacitracin (Verified Allergy, Unknown, unknown, 03/30/17) Kiwi (Verified Allergy, Unknown, itchy, 03/30/17) Polymyxin B (Verified Allergy, Unknown, unknown, 03/30/17) Morphine (Verified Adverse Reaction, Intermediate, HALLUCINATION, CONFUSION,AGITATION, 03/30/17) Home Medications Scheduled Acetaminophen (Tylenol), 1,000 MG PO BID Allopurinol (Zyloprim), 100 MG PO QAM Aspirin (Aspirin Ec), 81 MG PO QAM Carvedilol (Carvedilol), 9.375 MG PO BID Doxycycline Hyclate (Doxycycline Hyclate), 1 TAB PO BID Fentanyl (Fentanyl), 50 MCG TD CQ72HR Ferrous Sulfate (Ferrous Sulfate), 325 MG PO BID Fluticasone Prop/Salmeterol (Advair Diskus 500/50 60 Dose), 1 PUFFS INH BID Furosemide (Lasix), 60 MG PO QAM Gabapentin (Neurontin), 200 MG PO QAM Gabapentin (Neurontin), 600 MG PO HS Ipratropium-Albuterol (Combivent Respimat), 1 PUFFS INH Q6H Isosorbide Mononitrate (Imdur Ext Rel), 60 MG PO QAM Levofloxacin (Levaquin), 1 TAB PO DAILY Losartan Potassium (Cozaar), 25 MG PO QAM Potassium Chloride (Micro-K Ext Rel), 20 MEQ PO QAM Ranitidine Hcl (Zantac), 150 MG PO BID Rivaroxaban (Xarelto), 20 MG PO HS Sertraline (Zoloft), 200 MG PO QAM Simvastatin (Zocor), 40 MG PO QPM Sodium Phosphate/Biphosphate (Fleet Enema), 1 EA MA DAILY Topiramate (Topamax), 100 MG PO BID Scheduled PRN Acetaminophen Tab (Tylenol), 650 MG PO Q6H PRN for Pain Aluminum/Magnesium/Simeth (Maalox Max Susp), 30 ML PO Q6H PRN for RN Bisacodyl (Dulcolax), 1 SUPP MA UD PRN for Constipation Guaifenesin (Robitussin), 10 ML PO Q6H PRN for Cough Magnesium Hydroxide (Milk Of Magnesia), 30 ML PO for Constipation Oxycodone HCl (Oxycodone HCl), 20 MG PO Q4H PRN for UD Polyvinyl Alcohol (Artificial Tears), 2 DROPS OPB QID PRN for DRYNESS White Petrolatum-Mineral Oil (Genteal Tears Night-Time), 1 DOSE OPB DAILY PRN for DRYNESS Miscellaneous Medications Prune Juice (Prune Juice ), 8 OZ PO Physical Exam Vital Signs Date Time Temp Pulse Resp B/P (MAP) Pulse Ox O2 Delivery O2 Flow Rate FiO2 04/02/17 13:36 Room Air General Appearance: no apparent distress Head: normocephalic, atraumatic Eyes: PERRL ENT: hearing grossly normal Neck: supple Respiratory/Chest: lungs clear, no respiratory distress, no accessory muscle use Cardiovascular: + irregularly irregular (rate controlled ) Abdomen/GI: normal bowel sounds, non tender, soft Back: normal inspection Extremities/Musculoskelatal: no calf tenderness, + pertinent finding (L BKA; right lower extremity in dressing ) Neurologic/Psych: alert, oriented x 3 Skin: normal color, warm/dry, no rash Impression Assessment and Plan Patient is a 66 y/o male, with PMHx of chronic systolic CHF- EF 25-30%, VT- AICD placement, CAD- history of TN, Gout, Prostate CA, COPD, Chronic AF, HLD, HTN, Factor V Leiden mutation and h/o PE , Renetta's syndrome , Severe PAD s/p L BKA, s/p R iliac profundoplasty and stent, Chronic troponin elevation, recurrent UTIs, GERD, and anxiety, who was a direct admit from [facility] due to R groin cellulitis. R groin cellulitis s/p R iliac profundoplasty and stent by Dr. Gomez in November 2016- growing MRSA and Proteus mirabilis from cultures on 03/30: - Admit to med/surg - IV Rocephin + Vancomycin - BCx from 03/30- NGTD - Wound care consulted - Contact precautions - PRP and CBC pending - Consult General surgery, appreciate recommendations Chronic a.fib, CAD s/p TN, h/o VT w/ AICD, HTN, HLD, systolic CHF: - Continue Coreg 9.375 mg daily, ASA 81 mg daily, Xarelto 20 mg HS, Lasix 60 mg daily, Imdur 60 mg daily, Zocor 40 mg HS, Losartan 25 mg daily PAD, PVD: Continue ASA and Zocor Anxiety: Zoloft 200 mg daily COPD w/out exacerbation: Continue home inhalers Gout: Continue Allopurinol 100 mg daily Factor V Leiden mutation and h/o PE: Xarelto GERD, GI prophylaxis: Zantac 150 mg BID DVT prophylaxis: Xarelto Code Status: LEVEL I, FULL Dispo: From [facility]- PT/OT and CM consulted Resident Physician Supervision Note: Pt evaluated independently. I discussed the case with the PA and agree with the findings and plan as documented in the note. Any exceptions or clarifications are listed here: 66 y/o M Hx CAD, PVD, COPD, chronic systolic CHF, hypercoag disorder, chronic AF - continues to smoke - recent fem-pop bypass 11/19 Presents from PCP office due to wound and cellulitis at site of surgery R groin. Had previously tested + for MRSA. I was able to complete exam as he had not allowed the PA to examine him and visualize wound AAO x 3 S1,2 faint irreg CTA - poor air movement NT, ND There is a small but deep ulcer at the R groin with some surrounding inflammation and no apparent tenderness + BL edema P: We will start the pt on Vanc and Rocephin due to location and consult surgery He is basically euvolemic on admission and will remain on a B russ, ARB, Lasix We will cont ASA and Statin therapy - no current c/o CP Pt is rate controlled and anticoagulated with Xarelto Documented By: Gustavo Larkin Level of Care Med/Surg Advanced Directives Existing Living Will: No Existing Power of Sleep Technician: No Resuscitation Status FULL RESUSCITATION VTE Prophylaxis VTE Risk Assessment Done? Y/N: Yes Risk Level: Moderate Given or contraindicated: Other Anticoagulation, T.E.D. Stockings, SCD's
[2017-04-02] MEDS ORDERED: ARTIFICIAL TEARS OP SOLN OP PRN (14:45)
[2017-04-02] MEDS: CEFTRIAXONE SOD INJ 1 GM in DEXTROSE 5% ADD-VANTAGE 50ML 50 ML IV SCH ×2 (15:00→16:07)
[2017-04-02 15:17] LABS: HEMATOCRIT 37.1 % (42-52); HEMOGLOBIN 11.8 g/dL (14.0-18.0); MEAN CELL VOLUME 99.2 fL (80-100); MEAN CORPUSCULAR HEMOGLOBIN 31.6 pg (25-34); MEAN CORPUSCULAR HGB CONC 31.8 g/dl (32-36); MEAN PLATELET VOLUME 9.5 fL (7.4-10.4); PLATELET COUNT 234 K/uL (130-400); RED CELL DISTRIBUTION WIDTH CV 13.9 % (11.5-14.5); RED CELL DISTRIBUTION WIDTH SD 49.7 fL (36.4-46.3); WHITE BLOOD COUNT 8.82 K/uL (4.8-10.8)
[2017-04-02] MEDS ORDERED: VANCOMYCIN CONSULT ACTIVE PRN (15:30)
[2017-04-02 15:38] LABS: CALCIUM 8.8 mg/dl (8.5-10.1); CREATININE 1.1 mg/dl (0.60-1.40); POTASSIUM 3.9 mmol/L (3.5-5.1)
--- NOTE | 2017-04-02 15:46 | Pharmacy Progress Note ---
Pharmacy Abx Initial Consult Date of Service Apr 02, 2017. Pharmacy Dosing Scope Date of Consult: 04/02/17 Consultation requested by: Brittany Ron PA-C Pharmacy is consulted to initiate vancomycin IV dosing therapy, order appropriate labs and adjust drug dose/frequency. Subjective The patient is a 66 year old male admitted on Apr 02, 2017 at 12:44. Objective Height (Feet): 5 Height (Inches): 11.00 Weight (Kilograms): 106.800 Vital Signs (Past 12Hrs) Vital Signs Past 12 Hours Date Time Temp Pulse Resp B/P (MAP) Pulse Ox O2 Delivery O2 Flow Rate FiO2 04/02/17 13:36 Room Air Lab Results (24Hrs) Laboratory Tests (24 Hours) Test 04/02/17 15:03 White Blood Count 8.82 K/uL (4.8-10.8) Micro Results RUN DATE: 04/02/17 [facility] LAB PAGE 1 RUN TIME: 828 Specimen Inquiry PATIENT: PARVEEN DAVIS LOC: [place] # : [id number] AGE/SX: 66/M ROOM: REG : 03/30/[address]: Fabiola Velasquez D.O. : 1950 BED: DIS : STATUS: DEP ER TLOC: SPEC #: [id number] LANDEN: 03/30/17 STATUS: COMP REQ #: [id number] RECD: 03/30/[address]: Fabiola Velasquez D.O. SOURCE: ABSCESS ENTR: 03/30/[address]: Sohail Ignacio M.D. [facility]: BRIELLE ORDERED: MARCO VALLEJO/IFTIKHAR COMMENTS: Has Specimen Been Obtained/Collected? Y Procedure Result Verified Site GRAM STAIN Final 03/30/17-854 RESULT MANY POLYS FEW GRAM POSITIVE COCCI DEEP WOUND CULTURE Final 04/02/17-828 Organism 1 STAPHYLOCOCCUS AUREUS QUANITY FEW SENS SENSITIVITY TO FOLLOW Organism 2 PROTEUS MIRABILIS QUANITY FEW SENS SENSITIVITY TO FOLLOW SENSITIVITY RESULT INDICATES A METHICILLIN RESISTANT STAPH. AUREUS. PHONED TO TESFAYE SERNA ON 04/02/17 AT 0747 BY Leslie Nowak. Results were verbalized back to [facility]. RESULTS WERE ALSO CALLED TO [facility] SHELLY RAJAN ON 04/02/17 BY COLLINS. CONTINUED ON NEXT PAGE RUN DATE: 04/02/17 [facility] LAB PAGE 2 RUN TIME: 0829 Specimen Inquiry SPEC: [id number] PATIENT: VERNAJuliannaPARVEEN [id number] ( Continued) Procedure Result Verified Site DEEP WOUND CULTURE Final (continued) 04/02/17-828 CHATO THOMPSON M.I.C. RX M.I.C. RX --------- ------ --------- ------ TRIMET/SULFA >2/38 R <=2/38 S AMPICILLIN <=8 S * OXACILLIN >2 R AMPICILLIN/SUL <=8/4 S CEFAZOLIN <=8 S CEFOXITIN <=8 S CEFOTAXIME <=2 S CEFTRIAXONE <=1 S CEFEPIME <=4 S CEFUROXIME <=4 S VANCOMYCIN 1 S GENTAMICIN <=4 S TOBRAMYCIN <=4 S ERYTHROMYCIN >4 R TETRACYCLINE >8 R AMIKACIN <=16 S CIPROFLOXACIN >2 R LEVOFLOXACIN >4 R CLINDAMYCIN >4 R ERTAPENEM <=1 S DAPTOMYCIN <=0.5 S PIP/TAZO <=16 S RIFAMPIN <=1 S 1. STAPHYLOCOCCUS AUREUS Target Route Dose RX AB Cost M.I.C. IQ ------ ----- ------ -- ------ -------- - ------ TRIMET/SULFA R >2/38 * OXACILLIN R * >2 VANCOMYCIN S 1 ERYTHROMYCIN R >4 TETRACYCLINE R >8 CLINDAMYCIN R >4 DAPTOMYCIN S <=0.5 RIFAMPIN S <=1 2. PROTEUS MIRABILIS Target Route Dose RX AB Cost M.I.C. IQ ------ ----- ------ -- ------ -------- - ------ TRIMET/SULFA S <=2/38 AMPICILLIN S <=8 AMPICILLIN/SUL S <=8/4 CEFAZOLIN S <=8 CEFOXITIN S <=8 CEFOTAXIME S <=2 CEFTRIAXONE S <=1 CONTINUED ON NEXT PAGE RUN DATE: 04/02/17 [facility] PAGE 3 RUN TIME: 0829 Specimen Inquiry SPEC: [id number] PATIENT: PARVEEN DAVIS [id number] ( Continued) Procedure Result Verified Site DEEP WOUND CULTURE Final (continued) 04/02/17-828 2. PROTEUS MIRABILIS (continued) Target Route Dose RX AB Cost M.I.C. IQ ------ ----- ------ -- ------ -------- - ------ CEFEPIME S <=4 CEFUROXIME S <=4 GENTAMICIN S <=4 TOBRAMYCIN S <=4 AMIKACIN S <=16 CIPROFLOXACIN R >2 LEVOFLOXACIN R >4 ERTAPENEM S <=1 PIP/TAZO S <=16 S = SENSITIVE I = INTERMEDIATE R = RESISTANT END OF REPORT Risk Factors for Resistance * Resident in a prison or extended-care facility * Hospitalization for 48 hours or more within the past 90 days * Current hospitalization > 5 days * History of infection with a multidrug-resistant organism: MRSA 03/30/17 groin wound * Antimicrobial use within the last 90 days Levaquin Assessment & Plan Assessment 66 year old male with a PMH of CHF, CAD s/p NH, grout, prostate CA, COPD who presents from [facility] with worsening groin infection. Previous cultures grows MRSA (vancomycin MARANDA of 1) and Proteus. Patient has a Left BKA. Plan vancomycin for treatment of MRSA groin infection Vancomycin IV * Loading dose: 2750 mg (25 mg/kg) * Maintenance dose: 1500 mg IV (15 mg/kg) every 12 hours (population pharmacokinetics suggest a half-life of 11.7 hr- aggressive dosing secondary to MRSA infection) * Goal trough level for MRSA infection : 15 to 20 mcg/mL * Trough ordered for 04/04/17 prior to 0400 dose * A less than traditional dose and/or extended dosing interval has/have been selected due to likelihood of drug accumulation in obese patient/patient with h/ o CKD. Pharmacy will continue to follow and will adjust dose/frequency as necessary. Thank you.
[2017-04-02 15:57] VITALS: BP 95/62; PULSE 80; TEMP 36.7; O2SAT 95
[2017-04-02 16:00] VITALS: O2SAT 95
[2017-04-02] MEDS ORDERED: ALBUT/IPRATROP 3MG/0.5MG NEB 3 ML VIAL INH SCH (16:00)
[2017-04-02] MEDS ORDERED: ALBUT/IPRATROP 3MG/0.5MG NEB 3 ML VIAL INH PRN (16:00)
[2017-04-02] MEDS: FENTANYL 50 MCG/HR TDSY TD SCH (16:31)
[2017-04-02] MEDS: FENTANYL PATCH REMOVE & WASTE SCH (16:32)
--- NOTE | 2017-04-02 16:53 | Surgery Consultation ---
Consultation Date of Consultation: Apr 02, 2017. Attending Physician: Tuan Darby D.O. Reason for Consultation: right groin drainage/cellulitis (Bessy Aguilar PA-C) History of Present Illness Malvin is a 66 year-old male with multiple comorbidities including severe PAD s /p L BKA, s/p R iliac profundoplasty and stent who was a direct admit from [facility] due to R groin cellulitis. Patient was seen in ED on 03/30/17 due to R groin pain, erythema, and drainage. Wound was cultured and he was discharged back to [facility] from ED on Levaquin. Wound cultures now growing MRSA and Proteus Mirabilis. Our services consulted for right groin cellulitis. Malvin does not give much of a history, therefore much of history is obtained by medical chart. He is uncooperative originally but finally agreeable to examination. 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 R iliac profundoplasty and stent Chronic troponin elevation Recurrent UTIs GERD Anxiety (Bessy Aguilar PA-C) Family History FHx: ischemic heart disease (Bessy Aguilar PA-C) FHx: ischemic heart disease (Saray Coulter MD) Social History Smoking Status: Current Every Day Smoker Drug Use: none Marital Status: Housing Status: [facility] Occupation Status: disabled (Bessy Aguilar PA-C) Allergies Coded Allergies: Neomycin (Verified Allergy, Intermediate, RED, SORE, 03/30/17) Bacitracin (Verified Allergy, Unknown, unknown, 03/30/17) Kiwi (Verified Allergy, Unknown, itchy, 03/30/17) Polymyxin B (Verified Allergy, Unknown, unknown, 03/30/17) Morphine (Verified Adverse Reaction, Intermediate, HALLUCINATION, CONFUSION,AGITATION, 03/30/17) Home Medications Scheduled Acetaminophen (Tylenol), 1,000 MG PO BID Allopurinol (Zyloprim), 100 MG PO QAM Aspirin (Aspirin Ec), 81 MG PO QAM Carvedilol (Carvedilol), 9.375 MG PO BID Doxycycline Hyclate (Doxycycline Hyclate), 1 TAB PO BID Fentanyl (Fentanyl), 50 MCG TD [id number] Ferrous Sulfate (Ferrous Sulfate), 325 MG PO BID Fluticasone Prop/Salmeterol (Advair Diskus 500/50 60 Dose), 1 PUFFS INH BID Furosemide (Lasix), 60 MG PO QAM Gabapentin (Neurontin), 200 MG PO QAM Gabapentin (Neurontin), 600 MG PO HS Ipratropium-Albuterol (Combivent Respimat), 1 PUFFS INH Q6H Isosorbide Mononitrate (Imdur Ext Rel), 60 MG PO QAM Levofloxacin (Levaquin), 1 TAB PO DAILY Losartan Potassium (Cozaar), 25 MG PO QAM Potassium Chloride (Micro-K Ext Rel), 20 MEQ PO QAM Ranitidine Hcl (Zantac), 150 MG PO BID Rivaroxaban (Xarelto), 20 MG PO HS Sertraline (Zoloft), 200 MG PO QAM Simvastatin (Zocor), 40 MG PO QPM Sodium Phosphate/Biphosphate (Fleet Enema), 1 EA ND DAILY Topiramate (Topamax), 100 MG PO BID Scheduled PRN Acetaminophen Tab (Tylenol), 650 MG PO Q6H PRN for Pain Aluminum/Magnesium/Simeth (Maalox Max Susp), 30 ML PO Q6H PRN for RN Bisacodyl (Dulcolax), 1 SUPP ND UD PRN for Constipation Guaifenesin (Robitussin), 10 ML PO Q6H PRN for Cough Magnesium Hydroxide (Milk Of Magnesia), 30 ML PO for Constipation Oxycodone HCl (Oxycodone HCl), 20 MG PO Q4H PRN for UD Polyvinyl Alcohol (Artificial Tears), 2 DROPS OPB QID PRN for DRYNESS White Petrolatum-Mineral Oil (Genteal Tears Night-Time), 1 DOSE OPB DAILY PRN for DRYNESS Miscellaneous Medications Prune Juice (Prune Juice ), 8 OZ PO Current Inpatient Medications Current Inpatient Medications Medications (Trade) Dose Ordered Sig/Emily Route Start Time Stop Time Status Last Admin Dose Admin Acetaminophen (Tylenol Tab) 650 mg Q4H PRN PO 04/02/17 13:30 05/02/17 13:29 Al Hydrox/Mg Hydrox/Simethicone (Maalox Max Susp) 15 ml Q4H PRN PO 04/02/17 13:30 05/02/17 13:29 Magnesium Hydroxide (Milk Of Magnesia Susp) 30 ml Q6H PRN PO 04/02/17 13:30 05/02/17 13:29 Polyethylene (Miralax Powder Packet) 17 gm DAILY PRN PO 04/02/17 13:30 05/02/17 13:29 Ondansetron HCl (Zofran Inj) 4 mg Q6H PRN IV 04/02/17 13:30 05/02/17 13:29 Acetaminophen (Tylenol Tab) 1,000 mg BID PO 04/02/17 20:00 05/02/17 19:59 Allopurinol (Zyloprim Tab) 100 mg QAM PO 04/03/17 08:00 05/03/17 07:59 Al Hydrox/Mg Hydrox/Simethicone (Maalox Max Susp) 30 ml Q6H PRN PO 04/02/17 14:15 05/02/17 14:14 Aspirin (Ecotrin Tab) 81 mg QAM PO 04/03/17 08:00 05/03/17 07:59 Bisacodyl (Dulcolax Supp) 10 mg UD PRN ND 04/02/17 14:15 05/02/17 14:14 Carvedilol (Coreg Tab) 9.375 mg BID PO 04/02/17 20:00 05/02/17 19:59 Fentanyl (Duragesic Patch) 50 mcg Q3D@0900 TD 04/02/17 15:15 04/16/17 15:14 04/02/17 16:31 50 MCG Ferrous Sulfate (Feosol Tab) 325 mg BID PO 04/02/17 20:00 05/02/17 19:59 Salmeterol Xinafoate/ Fluticasone (Advair Diskus 500/50 Inh) 1 puff BID INH 04/02/17 20:00 05/02/17 19:59 Furosemide (Lasix Tab) 60 mg QAM PO 04/03/17 08:00 05/03/17 07:59 Gabapentin (Neurontin Cap) 200 mg QAM PO 04/03/17 08:00 05/03/17 07:59 Gabapentin (Neurontin Tab) 600 mg HS PO 04/02/17 22:00 05/02/17 21:59 Guaifenesin (Robitussin Sugar Free Syrup) 200 mg Q6H PRN PO 04/02/17 14:15 05/02/17 14:14 Albuterol/ Ipratropium (Combivent Respimat Inh) 1 puffs Q6 INH 04/02/17 18:00 05/02/17 17:59 Isosorbide Mononitrate (Imdur Ext Rel Tab) 60 mg QAM PO 04/03/17 08:00 05/03/17 07:59 Losartan Potassium (coZAAR TAB) 25 mg QAM PO 04/03/17 08:00 05/03/17 07:59 Magnesium Hydroxide (Milk Of Magnesia Susp) 30 ml Q6H PRN PO 04/02/17 14:15 05/02/17 14:14 Potassium Chloride (Klor-Con M10) 20 meq QAM PO 04/03/17 08:00 05/03/17 07:59 Ranitidine HCl (zANTac TAB) 150 mg BID PO 04/02/17 20:00 05/02/17 19:59 Rivaroxaban (Xarelto Tab) 20 mg QDD PO 04/02/17 17:00 05/02/17 16:59 Sertraline HCl (Zoloft Tab) 200 mg QAM PO 04/03/17 08:00 05/03/17 07:59 Simvastatin (Zocor Tab) 40 mg QPM PO 04/02/17 21:00 05/02/17 20:59 Sodium Biphosphate/ Sodium Phosphate (Fleet Enema) 132 ml DAILY PRN ND 04/03/17 08:00 05/03/17 07:59 Topiramate (Topamax Tab) 100 mg BID PO 04/02/17 20:00 05/02/17 19:59 Artificial Tears (Artificial Tears) 2 drops QID PRN OP 04/02/17 14:45 05/02/17 14:44 Miscellaneous Information (Order Awaiting Action) 1 ea QS N/A 04/02/17 16:00 05/02/17 15:59 Miscellaneous (Fentanyl Patch Remove & Waste) 1 ea Q3D@0859 N/A 04/02/17 15:14 05/02/17 15:13 04/02/17 16:32 1 EA Miscellaneous Information (Check Fentanyl Patch Placement) 1 ea QS N/A 04/02/17 16:00 05/02/17 15:59 Vancomycin HCl 2750 mg/Sodium Chloride 555 ml @ 200 mls/hr NOW ONCE IV 04/02/17 16:00 04/02/17 18:46 Ceftriaxone Sodium 1 gm/ Dextrose 50 ml @ 100 mls/hr Q24H IV 04/02/17 14:00 04/12/17 13:59 04/02/17 16:07 100 MLS/HR Vancomycin HCl (Consult) 1 ea UD PRN N/A 04/02/17 15:30 05/02/17 15:29 Vancomycin HCl 1500 mg/Sodium Chloride 530 ml @ 200 mls/hr Q12H IV 04/03/17 04:00 04/12/17 23:59 Albuterol/ Ipratropium (Duoneb) 3 ml Q4R PRN INH 04/02/17 16:00 05/02/17 15:59 Oxycodone HCl (Roxicodone Immediate Rel Tab) 20 mg Q4H PRN PO 04/02/17 16:00 04/16/17 15:59 (Bessy Aguilar ., PA-C) Review of Systems Constitutional: No fever, No chills, No sweats Musculoskeletal: + problem reported (pain of the right foot especially the 5th digit due to callous) Integumentary: + problem reported (right groin pain and drainage with some redness) (Bessy Aguilar, PA-C) Physical Exam Date Time Temp Pulse Resp B/P (MAP) Pulse Ox O2 Delivery O2 Flow Rate FiO2 04/02/17 15:57 36.7 80 18 95/62 (73) 95 Room Air 04/02/17 13:36 Room Air General Appearance: WD/WN, no apparent distress Head: normocephalic, atraumatic Eyes: sclerae normal ENT: hearing grossly normal Neck: trachea midline Respiratory/Chest: no respiratory distress, no accessory muscle use Abdomen/GI: + pertinent finding (Right groin with small opening with purulent draining at inferior aspect of previous incision, no fluctuance to suggest abscess, odor present) Extremities/Musculoskelatal: + pertinent finding (below knee amputation LLE, severe chronic ulcerations of the right lower extremity including the food with nonhealing wounds. Dressings in place and not removed. There is chronic edema and right food is cool to the touch. Some gangreene of the right toenails. ) Skin: + pertinent finding (Bessy Aguilar ., ISRRAEL-C) Laboratory Results Last 24 Hours Test 04/02/17 15:03 White Blood Count 8.82 K/uL Red Blood Count 3.74 M/uL Hemoglobin 11.8 g/dL Hematocrit 37.1 % Mean Corpuscular Volume 99.2 fL Mean Corpuscular Hemoglobin 31.6 pg Mean Corpuscular Hemoglobin Concent 31.8 g/dl RDW Standard Deviation 49.7 fL RDW Coefficient of Variation 13.9 % Platelet Count 234 K/uL Mean Platelet Volume 9.5 fL Sodium Level 139 mmol/L Potassium Level 3.9 mmol/L Chloride Level 107 mmol/L Carbon Dioxide Level 25 mmol/L Anion Gap 7.0 mmol/L Blood Urea Nitrogen 14 mg/dl Creatinine 1.10 mg/dl Est Creatinine Clear Calc Drug Dose 79.9 ml/min Estimated GFR () 79.5 Estimated GFR (Non- 68.6 BUN/Creatinine Ratio 12.4 Random Glucose 151 mg/dl Calcium Level 8.8 mg/dl (Bessy Aguilar ., ISRRAEL-C) Assessment & Plan 66 year-old male with multiple comorbidities including severe PAD s/p L BKA, s/ p R iliac profundoplasty and stent by Dr. Gomez in November who presented with right groin pain, redness, and drainage. Wound cultured and positive for MRSA and Proteus Mirabilis. Chronic PAD of the right lower extremity with chronic wounds and nonhealing wounds. Plan: No acute surgical intervention required Recommend IV Vancomycin for at least 72 hours Recommend vascular consultation with Dr. Gomez as wound is part of previous profundoplasty incision. Continue wound care and wound care consult Continue current medical management Dr. Coulter has seen and examined patient, developed assessment and plan. (Bessy Aguilar, SHANNONC) Pt seen and examined with PA. Frantz Has multiple nonhealing wounds but the one of concern is his right groin at the lower aspect of right profundoplasty incision done by Dr. Gomez in November. In review of that op note , a dacron patch was used. He has a 1 cm area of purulent drainage with minimal erythema but induration over the entire right groin. No sign of abscess. Would agree with IV abx. Consider CT scan to assess if area of profundoplasty/ patch is involved. No acute need for surgical intervention but would recommend having Dr Gomez to see pt as this may be a postop issue. (Saray Coulter MD)
--- NOTE | 2017-04-02 16:55 | NUR ---
CAM received WOCN notification, at risk nutrition screen completed. Addendum: 04/02/17 at [address] Amended: Links added.
[2017-04-02] MEDS: VANCOMYCIN IV 2,750 MG in SODIUM CHLORIDE 0.9% 500ML 500 ML IV ONE ×3 (17:27→18:40)
[2017-04-02] MEDS: CHECK FENTANYL PATCH PLACEMENT SCH ×2 (17:27→23:36)
[2017-04-02] MEDS: RIVAROXABAN 20 MG TAB PO SCH ×2 (17:30→18:01)
[2017-04-02] MEDS: IPRATROPIUM BROMIDE/ALBUTEROL respimat INH INH SCH ×2 (17:31→23:36)
--- NOTE | 2017-04-02 18:20 | NUR ---
A: Pt alert and oriented x4, sitting in wheelchair. Lung sounds clear diminished on RA. PT denies any pain or SOB at this time. VSS. Pt initially refused for this RN to Assess skin under dressings of RLE. L outer thigh optifoam and aquacel changed, open area noted. Pt refused for RN to look at buttocks but noticed Optifoam C/D/I when pt transferring from wheelchair into bed. Pt voided in urinal at bedside, brief wet, and RN offered x3 to assist pt with changing his brief. Pt refused stating the ones we have will not work. Asked pt if we could at least take old brief off as to protect his skin and pt refused. At this time pt refused IV Vanco, when attempting to flush IV site, explained purpose of flush, pt stated, "well they are both going into the same place, I do not like the sound of that, i do not want it." made aware. Addendum: 04/02/17 at 1907 by Rianna Aguirre RN Pt also refuses Tegaderm to R FA be removed.
--- NOTE | 2017-04-02 18:49 | NUR ---
Spoke with pt regarding refusal of IV antibiotic, hygiene care and removal of groin dressing. Pt denies any refusal of treatment/care, stating "that's why I came here, to get treated." Discussed the necessity to allow staff to follow through with policies, procedures and MD orders. Pt stated he would comply. Dr. Larkin paged at this time.
[2017-04-02 19:32] VITALS: BP 118/65
[2017-04-02] MEDS: OXYCODONE HCL IR 5 MG TAB (IMMEDIATE RELEASE) PO PRN ×2 (19:44→23:35)
[2017-04-02] MEDS: CARVEDILOL 3.125 MG TAB PO SCH (20:00)
[2017-04-02] MEDS: RANITIDINE HCL 150 MG TAB PO SCH (20:00)
[2017-04-02] MEDS: ACETAMINOPHEN 500 MG TAB PO SCH (20:00)
[2017-04-02] MEDS: TOPIRAMATE 100 MG TAB PO SCH (20:00)
[2017-04-02] MEDS: FLUTICASONE/SALMETEROL (ADVAIR) 500/50 INH 14 PUFF INH SCH (20:43)
[2017-04-02] MEDS: SIMVASTATIN 40 MG TAB PO SCH (21:00)
[2017-04-02] MEDS: FERROUS SULFATE 325 MG TAB PO SCH (21:28)
[2017-04-02] MEDS: GABAPENTIN 600 MG TAB PO SCH (21:29)
--- NOTE | 2017-04-02 21:29 | NUR ---
A: Pt refused PM meds states, "those are entirely too many, did they even get a list of what I take, I don't want them." Attempted to explain procedure and pt continue to refuse. VSS. Pt also offered again to take off soiled brief, and change bedding. Pt refused. Said, "why do you keep asking me this." Explained importance of keeping skin dry and preventing breakdown. Will continue to monitor and offer.
[2017-04-03] VITALS: BP 119/86; PULSE 80; TEMP 36.9; O2SAT 96
--- NOTE | 2017-04-03 00:05 | NUR ---
A: Upon assessment of patient, he was cooperative with care, agreeable to vital signs. Began skin assessment, requesting assistance to move his right foot, pt stated, "Move my foot over by the heel." As I was helping move patient, he stated, "If you go any slower it will be daylight and I'll be arguing with another nurse." I explained to patient I was moving cautiously not to cause any more pain to right foot, and explained to patient not to disrespect the nursing team trying to take care of you. Patient stated, "It's a joking world, and if you think I was being serious, I am deeply sorry." I accepted patients apology, and moved forward with care. Assisted in changing dressing to right groin, administered pain medications, call wilkins in reach. Asked patient if he needed anything else, denied any needs. Will continue to monitor.
[2017-04-03] MEDS: VANCOMYCIN IV 1,500 MG in SODIUM CHLORIDE 0.9% 500ML 500 ML IV SCH ×2 (03:32→16:27)
--- NOTE | 2017-04-03 05:55 | NUR ---
A/ID: Patient resting in bed. Alert and oriented x 4, being cooperative with care. Denies chest pain and shortness of breath. Complains of pain upon movement in back and right foot. Declining pain medication at this time. Patient stated he would like to change his brief. Assisted patient in comfort bath, linen change, raúl care, applied pull up per patient request. Assessed wounds in sacral area. Multiple impairments noted. One area has slough covering wound bed, purulent drainage noted on Optifoam. Another area closer to anus and perineum, reddened and excoriated, has some sloughing tissue, but more granulation noted. Covered both sites with large Optifoam. Changed dressing in right groin, no changes noted to wound. Other skin impairments throughout body covered with dressings clean, dry, and intact. Left forearm IV running intermittent IV Vanco. Patient denies any other needs or requests at this time. Will continue to monitor.
[2017-04-03] MEDS: IPRATROPIUM BROMIDE/ALBUTEROL respimat INH INH SCH ×4 (06:00→23:50)
[2017-04-03 07:48] VITALS: BP 141/82; PULSE 74; TEMP 36.5; O2SAT 94
[2017-04-03] MEDS: OXYCODONE HCL IR 5 MG TAB (IMMEDIATE RELEASE) PO PRN ×2 (07:56→20:32)
[2017-04-03] MEDS: ALLOPURINOL 100 MG TAB PO SCH (07:57)
[2017-04-03] MEDS: FUROSEMIDE 40 MG TAB PO SCH (07:58)
[2017-04-03] MEDS: ASPIRIN 81 MG ECTAB PO SCH (07:58)
[2017-04-03] MEDS: SERTRALINE HCL 100 MG TAB PO SCH (07:59)
[2017-04-03] MEDS: POTASSIUM CHLORIDE 10 MEQ TABCR PO SCH (08:00)
[2017-04-03] MEDS: TOPIRAMATE 100 MG TAB PO SCH ×2 (08:00→20:16)
[2017-04-03] MEDS ORDERED: SOD PHOSPHATE/SOD BIPHOSPHATE ENEMA 132 ML BTL PR PRN (08:00)
[2017-04-03] MEDS: GABAPENTIN 100 MG CAP PO SCH (08:01)
[2017-04-03] MEDS: CARVEDILOL 3.125 MG TAB PO SCH ×2 (08:01→20:16)
[2017-04-03] MEDS: RANITIDINE HCL 150 MG TAB PO SCH ×2 (08:02→20:21)
[2017-04-03] MEDS: LOSARTAN POTASSIUM 25 MG TAB PO SCH (08:02)
[2017-04-03] MEDS: ISOSORBIDE MONONITRATE 60 MG TABCR PO SCH (08:04)
[2017-04-03] MEDS: FERROUS SULFATE 325 MG TAB PO SCH ×2 (08:04→20:15)
[2017-04-03] MEDS: FLUTICASONE/SALMETEROL (ADVAIR) 500/50 INH 14 PUFF INH SCH ×2 (08:05→20:15)
[2017-04-03] MEDS: ACETAMINOPHEN 500 MG TAB PO SCH ×2 (08:05→20:18)
[2017-04-03] MEDS: CHECK FENTANYL PATCH PLACEMENT SCH ×3 (08:06→23:50)
[2017-04-03 08:44] LABS: CREATININE 1.01 mg/dl (0.60-1.40)
--- NOTE | 2017-04-03 09:25 | NUR ---
Case Management Note- Received consult for discharge planning. Patient identified on social service screening tool as living in a penitentiary. Met with patient at bedside. Patient appears appropriate with some confusion. He confirms that he is a resident at [facility] and plans to return at discharge . Patient has Medicare/Medicaid, so is most likely a 15 day bed hold. Patient uses a walker and a wheelchair. He needs assist with all ADL's. Will continue to follow.
--- NOTE | 2017-04-03 10:36 | Surgery Progress Note ---
Surgery Progress Note Date of Service Apr 03, 2017. Subjective Pt wants to go home and f/u with Dr. Gomez as an outpatient. He does not have a dressing on his right groin this morning (unclear if he removed it or refused one). No other change since yesterday. Remains minimally cooperative. Objective Vital Signs: Date Time Temp Pulse Resp B/P (MAP) Pulse Ox O2 Delivery O2 Flow Rate FiO2 04/03/17 07:48 36.5 74 16 141/82 (101) 94 Room Air 04/03/17 00:00 36.9 80 16 119/86 (97) 96 Room Air 04/03/17 00:00 Room Air 04/02/17 19:32 118/65 (82) 04/02/17 16:00 95 Room Air 04/02/17 15:57 36.7 80 18 95/62 (73) 95 Room Air 04/02/17 13:36 Room Air Incision(s): findings (right groin incision looks slightly better, less induration. Still with 1 cm opening at inferior aspect of wound with drainage.) Laboratory Results: Results Past 24 Hours Test 04/02/17 15:03 04/03/17 07:43 Range/Units White Blood Count 8.82 4.8-10.8 K/uL Red Blood Count 3.74 4.7-6.1 M/uL Hemoglobin 11.8 14.0-18.0 g/dL Hematocrit 37.1 42-52 % Mean Corpuscular Volume 99.2 80-100 fL Mean Corpuscular Hemoglobin 31.6 25-34 pg Mean Corpuscular Hemoglobin Concent 31.8 32-36 g/dl RDW Standard Deviation 49.7 36.4-46.3 fL RDW Coefficient of Variation 13.9 11.5-14.5 % Platelet Count 234 130-400 K/uL Mean Platelet Volume 9.5 7.4-10.4 fL Sodium Level 139 136-145 mmol/L Potassium Level 3.9 3.5-5.1 mmol/L Chloride Level 107 98-107 mmol/L Carbon Dioxide Level 25 21-32 mmol/L Anion Gap 7.0 3-11 mmol/L Blood Urea Nitrogen 14 7-18 mg/dl Creatinine 1.10 1.01 0.60-1.40 mg/dl Est Creatinine Clear Calc Drug Dose 79.9 87.0 ml/min Estimated GFR () 79.5 88.2 Estimated GFR (Non- 68.6 76.1 BUN/Creatinine Ratio 12.4 10-20 Random Glucose 151 70-99 mg/dl Calcium Level 8.8 8.5-10.1 mg/dl Assessment & Plan Right groin non healing wound following right profundoplasty in November by Dr. Gomez. No evidence of drainable fluid - thus, will sign off. I would recommend continuing antibiotics and having him f/u with Dr. Gomez. Dressings to area would help minimize persistent infection risk if he is agreeable.
[2017-04-03 12:04] VITALS: BP 141/82; PULSE 81; O2SAT 93
--- NOTE | 2017-04-03 14:30 | Progress Note ---
Subjective Date of Service: Apr 03, 2017. Subjective Pt evaluation today including: conversation w/ patient, conversation w/ family (daughter), physical exam, lab review, conversation w/ tanning consultant, review of inpatient medication list Pain: no pain PO Intake: adequate Voiding: no voiding problems patient feeling well, PT got him up to his wheelchair eating well, sleeping well, no pain in groin reviewed labs appreciate surgery consult, will give Vancomcyin for 72 hours, ask Dr. Gomez to see on Wednesday if he is back Problem List Medical Problems: (1) Acute exacerbation of chronic low back pain Status: Acute (2) Cellulitis of right lower extremity Status: Acute (3) Fall Status: Acute (4) Pressure ulcer Status: Acute (5) Pulmonary edema Status: Acute (6) Wound infection Status: Acute Review of Systems Neurologic: + memory loss, + weakness All Other Systems: Reviewed and Negative Medications Current Inpatient Medications Medications (Trade) Dose Ordered Sig/Emily Route Start Time Stop Time Status Last Admin Dose Admin Acetaminophen (Tylenol Tab) 650 mg Q4H PRN PO 04/02/17 13:30 05/02/17 13:29 Al Hydrox/Mg Hydrox/Simethicone (Maalox Max Susp) 15 ml Q4H PRN PO 04/02/17 13:30 05/02/17 13:29 Magnesium Hydroxide (Milk Of Magnesia Susp) 30 ml Q6H PRN PO 04/02/17 13:30 05/02/17 13:29 Polyethylene (Miralax Powder Packet) 17 gm DAILY PRN PO 04/02/17 13:30 05/02/17 13:29 Ondansetron HCl (Zofran Inj) 4 mg Q6H PRN IV 04/02/17 13:30 05/02/17 13:29 Acetaminophen (Tylenol Tab) 1,000 mg BID PO 04/02/17 20:00 05/02/17 19:59 04/03/17 08:05 1,000 MG Allopurinol (Zyloprim Tab) 100 mg QAM PO 04/03/17 08:00 05/03/17 07:59 04/03/17 07:57 100 MG Al Hydrox/Mg Hydrox/Simethicone (Maalox Max Susp) 30 ml Q6H PRN PO 04/02/17 14:15 1/28/18 14:14 Aspirin (Ecotrin Tab) 81 mg QAM PO 04/03/17 08:00 05/03/17 07:59 04/03/17 07:58 81 MG Bisacodyl (Dulcolax Supp) 10 mg UD PRN [place] 04/02/17 14:15 05/02/17 14:14 Carvedilol (Coreg Tab) 9.375 mg BID PO 04/02/17 20:00 05/02/17 19:59 04/03/17 08:01 9.375 MG Fentanyl (Duragesic Patch) 50 mcg Q3D@0900 TD 04/02/17 15:15 04/16/17 15:14 04/02/17 16:31 50 MCG Ferrous Sulfate (Feosol Tab) 325 mg BID PO 04/02/17 20:00 05/02/17 19:59 04/03/17 08:04 325 MG Salmeterol Xinafoate/ Fluticasone (Advair Diskus 500/50 Inh) 1 puff BID INH 04/02/17 20:00 05/02/17 19:59 04/03/17 08:05 1 PUFF Furosemide (Lasix Tab) 60 mg QAM PO 04/03/17 08:00 05/03/17 07:59 04/03/17 07:58 60 MG Gabapentin (Neurontin Cap) 200 mg QAM PO 04/03/17 08:00 05/03/17 07:59 04/03/17 08:01 200 MG Gabapentin (Neurontin Tab) 600 mg HS PO 04/02/17 22:00 05/02/17 21:59 Guaifenesin (Robitussin Sugar Free Syrup) 200 mg Q6H PRN PO 04/02/17 14:15 05/02/17 14:14 Albuterol/ Ipratropium (Combivent Respimat Inh) 1 puffs Q6 INH 04/02/17 18:00 05/02/17 17:59 04/02/17 17:31 1 PUFFS Isosorbide Mononitrate (Imdur Ext Rel Tab) 60 mg QAM PO 04/03/17 08:00 05/03/17 07:59 04/03/17 08:04 60 MG Losartan Potassium (coZAAR TAB) 25 mg QAM PO 04/03/17 08:00 05/03/17 07:59 04/03/17 08:02 25 MG Magnesium Hydroxide (Milk Of Magnesia Susp) 30 ml Q6H PRN PO 04/02/17 14:15 05/02/17 14:14 Potassium Chloride (Klor-Con M10) 20 meq QAM PO 04/03/17 08:00 05/03/17 07:59 04/03/17 08:00 20 MEQ Ranitidine HCl (zANTac TAB) 150 mg BID PO 04/02/17 20:00 05/02/17 19:59 04/03/17 08:02 150 MG Rivaroxaban (Xarelto Tab) 20 mg QDD PO 04/02/17 17:00 05/02/17 16:59 Sertraline HCl (Zoloft Tab) 200 mg QAM PO 04/03/17 08:00 05/03/17 07:59 04/03/17 07:59 200 MG Simvastatin (Zocor Tab) 40 mg QPM PO 04/02/17 21:00 05/02/17 20:59 Sodium Biphosphate/ Sodium Phosphate (Fleet Enema) 132 ml DAILY PRN [place] 04/03/17 08:00 05/03/17 07:59 Topiramate (Topamax Tab) 100 mg BID PO 04/02/17 20:00 05/02/17 19:59 04/03/17 08:00 100 MG Artificial Tears (Artificial Tears) 2 drops QID PRN OP 04/02/17 14:45 05/02/17 14:44 Miscellaneous Information (Order Awaiting Action) 1 ea QS N/A 04/02/17 16:00 05/02/17 15:59 Miscellaneous (Fentanyl Patch Remove & Waste) 1 ea Q3D@0859 N/A 04/02/17 15:14 05/02/17 15:13 04/02/17 16:32 1 EA Miscellaneous Information (Check Fentanyl Patch Placement) 1 ea QS N/A 04/02/17 16:00 05/02/17 15:59 04/03/17 08:06 1 EA Ceftriaxone Sodium 1 gm/ Dextrose 50 ml @ 100 mls/hr Q24H IV 04/02/17 14:00 04/12/17 13:59 04/02/17 15:00 100 MLS/HR Vancomycin HCl (Consult) 1 ea UD PRN N/A 04/02/17 15:30 05/02/17 15:29 Vancomycin HCl 1500 mg/Sodium Chloride 530 ml @ 200 mls/hr Q12H IV 04/03/17 04:00 04/12/17 23:59 04/03/17 03:32 200 MLS/HR Albuterol/ Ipratropium (Duoneb) 3 ml Q4R PRN INH 04/02/17 16:00 05/02/17 15:59 Oxycodone HCl (Roxicodone Immediate Rel Tab) 20 mg Q4H PRN PO 04/02/17 16:00 04/16/17 15:59 04/03/17 07:56 20 MG Objective Vital Signs Date Time Temp Pulse Resp B/P (MAP) Pulse Ox O2 Delivery O2 Flow Rate FiO2 04/03/17 12:04 81 93 04/03/17 08:00 Room Air 04/03/17 07:48 36.5 74 16 141/82 (101) 94 Room Air 04/03/17 00:00 36.9 80 16 119/86 (97) 96 Room Air 04/03/17 00:00 Room Air 04/02/17 19:32 118/65 (82) 04/02/17 16:00 95 Room Air 04/02/17 15:57 36.7 80 18 95/62 (73) 95 Room Air Physical Exam General Appearance: WD/WN, no apparent distress Eyes: normal inspection, EOMI, sclerae normal ENT: normal ENT inspection, hearing grossly normal, pharynx normal Neck: supple, no adenopathy, no JVD, trachea midline Respiratory/Chest: chest non-tender, lungs clear, normal breath sounds, no respiratory distress, no accessory muscle use Cardiovascular: regular rate, rhythm, no edema, no gallop, no JVD, no murmur Abdomen: normal bowel sounds, non tender, soft, no organomegaly Extremities: normal range of motion, non-tender, no pedal edema, no calf tenderness, pelvis stable, + pertinent finding (left BKA) Neurologic/Psychiatric: 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 analysis technician II-XII nml as tested, no motor/sensory deficits, alert, normal mood/affect, oriented x 3 Skin: normal color, warm/dry, no rash Laboratory Results Last 24 Hours Test 04/02/17 15:03 04/03/17 07:43 White Blood Count 8.82 K/uL Red Blood Count 3.74 M/uL Hemoglobin 11.8 g/dL Hematocrit 37.1 % Mean Corpuscular Volume 99.2 fL Mean Corpuscular Hemoglobin 31.6 pg Mean Corpuscular Hemoglobin Concent 31.8 g/dl RDW Standard Deviation 49.7 fL RDW Coefficient of Variation 13.9 % Platelet Count 234 K/uL Mean Platelet Volume 9.5 fL Sodium Level 139 mmol/L Potassium Level 3.9 mmol/L Chloride Level 107 mmol/L Carbon Dioxide Level 25 mmol/L Anion Gap 7.0 mmol/L Blood Urea Nitrogen 14 mg/dl Creatinine 1.10 mg/dl 1.01 mg/dl Est Creatinine Clear Calc Drug Dose 79.9 ml/min 87.0 ml/min Estimated GFR () 79.5 88.2 Estimated GFR (Non- 68.6 76.1 BUN/Creatinine Ratio 12.4 Random Glucose 151 mg/dl Calcium Level 8.8 mg/dl Assessment and Plan Patient is a 66 y/o male, with PMHx of chronic systolic CHF- EF 25-30%, VT- AICD placement, CAD- history of PA, Gout, Prostate CA, COPD, Chronic AF, HLD, HTN, Factor V Leiden mutation and h/o PE , Renetta's syndrome , Severe PAD s/p L BKA, s/p R iliac profundoplasty and stent, Chronic troponin elevation, recurrent UTIs, GERD, and anxiety, who was a direct admit from [facility] due to R groin cellulitis. R groin cellulitis s/p R iliac profundoplasty and stent by Dr. Gomez in November 2016- growing MRSA and Proteus mirabilis from cultures on 03/30: - Admit to med/surg - IV Rocephin + Vancomycin - BCx from 03/30- NGTD - Wound care consulted - general surgery recommends 72 hours of IV antibiotics, have Dr. Gomez evaluate next week - no plans for I&D at this time - patient is afebrile, WBC normal, vitals stable, no significant groin pain Chronic a.fib, CAD s/p PA, h/o VT w/ AICD, HTN, HLD, systolic CHF: - Continue Coreg 9.375 mg daily, ASA 81 mg daily, Xarelto 20 mg HS, Lasix 60 mg daily, Imdur 60 mg daily, Zocor 40 mg HS, Losartan 25 mg daily PAD, PVD: Continue ASA and Zocor Anxiety: Zoloft 200 mg daily COPD w/out exacerbation: Continue home inhalers Gout: Continue Allopurinol 100 mg daily Factor V Leiden mutation and h/o PE: Xarelto GERD, GI prophylaxis: Zantac 150 mg BID DVT prophylaxis: Xarelto Code Status: LEVEL I, FULL Dispo: From [facility]- PT/OT and CM consulted
[2017-04-03] MEDS: CEFTRIAXONE SOD INJ 1 GM in DEXTROSE 5% ADD-VANTAGE 50ML 50 ML IV SCH (15:11)
[2017-04-03 16:08] VITALS: BP 104/70; PULSE 68; TEMP 36.4; O2SAT 95
[2017-04-03] MEDS: RIVAROXABAN 20 MG TAB PO SCH (16:28)
--- NOTE | 2017-04-03 16:51 | NUR ---
A: Per Lee Ann in pharmacy, OK to run pt's vancomycin at 300 ml/hr.
[2017-04-03] MEDS: SIMVASTATIN 40 MG TAB PO SCH (20:22)
[2017-04-03] MEDS: GABAPENTIN 600 MG TAB PO SCH (21:14)
[2017-04-03 23:15] VITALS: BP 131/62; PULSE 67; TEMP 36.4; O2SAT 96
--- NOTE | 2017-04-04 00:05 | NUR ---
A: Pt has been uncooperative. Did take his evening meds, but refused inhaler and to have his fentanyl patch checked. Stated that if it fell off we would know because he would be in severe pain. Pt also refused to have his dressings changed and his skin assessed. Pt does not appear to be in any respiratory distress or c/o pain at this time. Hourly rounding maintained. Will continue to monitor.
--- NOTE | 2017-04-04 00:32 | NUR ---
ID: Pt has been resting in bed, will ring when he needs anything. Has not been cooperative at times with scheduled medications. Pt is alert and oriented X4. VSS. On room air. Pt is scheduled for IV Vanco at 0400. IV site in Left AC, patent and intact. Hourly rounding maintained. Continuing to monitor
[2017-04-04] MEDS: VANCOMYCIN IV 1,500 MG in SODIUM CHLORIDE 0.9% 500ML 500 ML IV SCH (03:22)
[2017-04-04] MEDS ORDERED: VANCOMYCIN TROUGH ONE (03:30)
[2017-04-04 03:47] LABS: CREATININE 1.02 mg/dl (0.60-1.40)
[2017-04-04] MEDS: IPRATROPIUM BROMIDE/ALBUTEROL respimat INH INH SCH ×4 (06:00→23:47)
[2017-04-04 07:29] VITALS: BP 134/85; PULSE 83; TEMP 36.6; O2SAT 93
[2017-04-04] MEDS: FLUTICASONE/SALMETEROL (ADVAIR) 500/50 INH 14 PUFF INH SCH ×2 (09:17→20:55)
[2017-04-04] MEDS: GABAPENTIN 100 MG CAP PO SCH (09:17)
[2017-04-04] MEDS: TOPIRAMATE 100 MG TAB PO SCH ×2 (09:18→20:56)
[2017-04-04] MEDS: POTASSIUM CHLORIDE 10 MEQ TABCR PO SCH (09:19)
[2017-04-04] MEDS: CARVEDILOL 3.125 MG TAB PO SCH ×2 (09:20→20:59)
[2017-04-04] MEDS: FUROSEMIDE 40 MG TAB PO SCH (09:20)
[2017-04-04] MEDS: ALLOPURINOL 100 MG TAB PO SCH (09:20)
[2017-04-04] MEDS: SERTRALINE HCL 100 MG TAB PO SCH (09:22)
[2017-04-04] MEDS: LOSARTAN POTASSIUM 25 MG TAB PO SCH (09:23)
[2017-04-04] MEDS: ISOSORBIDE MONONITRATE 60 MG TABCR PO SCH (09:23)
[2017-04-04] MEDS: FERROUS SULFATE 325 MG TAB PO SCH ×2 (09:23→20:00)
[2017-04-04] MEDS: ACETAMINOPHEN 500 MG TAB PO SCH ×2 (09:23→20:59)
[2017-04-04] MEDS: ASPIRIN 81 MG ECTAB PO SCH (09:23)
[2017-04-04] MEDS: RANITIDINE HCL 150 MG TAB PO SCH ×2 (09:24→20:56)
[2017-04-04] MEDS: CHECK FENTANYL PATCH PLACEMENT SCH ×3 (09:25→23:48)
--- NOTE | 2017-04-04 11:20 | NUR ---
A: MD in to see pt. Pt had originally declined to have groin/buttock/ right forearm wounds assessed or dressing changed, or own brief, which was wet, changed (briefs had been brought in by family)now amenable. Stated "You never asked about changing my dressings or brief." This RN reiterated that he had been asked about this morning during a linen change, at the same time he declined to have his brief removed. MD assisted this RN with linen change and dressing change to buttock. Again educated pt re: brief usage and skin impairment, particularly in regard to his existing buttock ulceration. Asked pt if he would also allow removal of tegaderm on right forearm, pt stated "I never refused". Reiterated that pt had been asked multiple times yesterday re: removal of tegaderm and had refuse, and reminded pt of conversation yesterday morning re: right forearm wound and dressing change, pt stated "I remember that, I don't remember refusing". While assisting pt with repositioning, this RN bumped pt's foot, and pt stated "If you hurt me again, I will hurt you." This RN stated that bumping his foot was accidental, and that while care is and had been taken to avoid bumping his foot, that it was at times unavoidable, and further more, his statement was disrespectful, and that such language was not going to be tolerated. Pt stated that this was not disrespectful, but was the truth, to which this RN replied that while he may not think it was, this RN found it very disrespectful. Further advised pt that removal of tegaderm to forearm was likely going to hurt, owing to his arm hair, to which pt replied "Well, that's line of duty". Pt removed dressing himself. Cleansed wound with NSS and placed optifoam. Pt then asked for urinal, asked why he was not wearing a brief. This RN reminded pt of conversation re: briefs and skin care, and that MD had been there during the discussion. Pt did not respond, but stared at this RN for several moments. This RN asked if pt needed anything else at this time, pt stated he did not. 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 Continue monitor.
--- NOTE | 2017-04-04 13:20 | Progress Note ---
Subjective Date of Service: Apr 04, 2017. Subjective Pt evaluation today including: conversation w/ patient, physical exam, lab review, review of inpatient medication list Pain: right leg, foot and sacrum PO Intake: adequate Voiding: incontinence patient tired but responds appropriately he allowed me and the RN to change his dressing and clothes sacral wound erythematous with granulation tissue, also, a good amount of tissue right groin wound with no erythema, the wound is draining clear/purulent fluid Problem List Medical Problems: (1) Acute exacerbation of chronic low back pain Status: Acute (2) Cellulitis of right lower extremity Status: Acute (3) Fall Status: Acute (4) Pressure ulcer Status: Acute (5) Pulmonary edema Status: Acute (6) Wound infection Status: Acute Review of Systems Musculoskeletal: + joint pain (right foot, right groin, sacrum) Neurologic: + weakness Endo: + fatigue All Other Systems: Reviewed and Negative Medications Current Inpatient Medications Medications (Trade) Dose Ordered Sig/Emily Route Start Time Stop Time Status Last Admin Dose Admin Acetaminophen (Tylenol Tab) 650 mg Q4H PRN PO 04/02/17 13:30 05/02/17 13:29 Al Hydrox/Mg Hydrox/Simethicone (Maalox Max Susp) 15 ml Q4H PRN PO 04/02/17 13:30 05/02/17 13:29 Magnesium Hydroxide (Milk Of Magnesia Susp) 30 ml Q6H PRN PO 04/02/17 13:30 05/02/17 13:29 Polyethylene (Miralax Powder Packet) 17 gm DAILY PRN PO 04/02/17 13:30 05/02/17 13:29 Ondansetron HCl (Zofran Inj) 4 mg Q6H PRN IV 04/02/17 13:30 05/02/17 13:29 Acetaminophen (Tylenol Tab) 1,000 mg BID PO 04/02/17 20:00 05/02/17 19:59 04/04/17 09:23 1,000 MG Allopurinol (Zyloprim Tab) 100 mg QAM PO 04/03/17 08:00 05/03/17 07:59 04/04/17 09:20 100 MG Al Hydrox/Mg Hydrox/Simethicone (Maalox Max Susp) 30 ml Q6H PRN PO 04/02/17 14:15 05/02/17 14:14 Aspirin (Ecotrin Tab) 81 mg QAM PO 04/03/17 08:00 05/03/17 07:59 04/04/17 09:23 81 MG Bisacodyl (Dulcolax Supp) 10 mg UD PRN [place] 04/02/17 14:15 05/02/17 14:14 Carvedilol (Coreg Tab) 9.375 mg BID PO 04/02/17 20:00 05/02/17 19:59 04/04/17 09:20 9.375 MG Fentanyl (Duragesic Patch) 50 mcg Q3D@0900 TD 04/02/17 15:15 04/16/17 15:14 04/02/17 16:31 50 MCG Ferrous Sulfate (Feosol Tab) 325 mg BID PO 04/02/17 20:00 05/02/17 19:59 04/04/17 09:23 325 MG Salmeterol Xinafoate/ Fluticasone (Advair Diskus 500/50 Inh) 1 puff BID INH 04/02/17 20:00 05/02/17 19:59 04/04/17 09:17 1 PUFF Furosemide (Lasix Tab) 60 mg QAM PO 04/03/17 08:00 05/03/17 07:59 04/04/17 09:20 60 MG Gabapentin (Neurontin Cap) 200 mg QAM PO 04/03/17 08:00 05/03/17 07:59 04/04/17 09:17 200 MG Gabapentin (Neurontin Tab) 600 mg HS PO 04/02/17 22:00 05/02/17 21:59 Guaifenesin (Robitussin Sugar Free Syrup) 200 mg Q6H PRN PO 04/02/17 14:15 05/02/17 14:14 Albuterol/ Ipratropium (Combivent Respimat Inh) 1 puffs Q6 INH 04/02/17 18:00 05/02/17 17:59 04/04/17 12:29 1 PUFFS Isosorbide Mononitrate (Imdur Ext Rel Tab) 60 mg QAM PO 04/03/17 08:00 05/03/17 07:59 04/04/17 09:23 60 MG Losartan Potassium (coZAAR TAB) 25 mg QAM PO 04/03/17 08:00 05/03/17 07:59 04/04/17 09:23 25 MG Magnesium Hydroxide (Milk Of Magnesia Susp) 30 ml Q6H PRN PO 04/02/17 14:15 05/02/17 14:14 Potassium Chloride (Klor-Con M10) 20 meq QAM PO 04/03/17 08:00 05/03/17 07:59 04/04/17 09:19 20 MEQ Ranitidine HCl (zANTac TAB) 150 mg BID PO 04/02/17 20:00 05/02/17 19:59 04/04/17 09:24 150 MG Rivaroxaban (Xarelto Tab) 20 mg QDD PO 04/02/17 17:00 05/02/17 16:59 04/03/17 16:28 20 MG Sertraline HCl (Zoloft Tab) 200 mg QAM PO 04/03/17 08:00 05/03/17 07:59 04/04/17 09:22 200 MG Simvastatin (Zocor Tab) 40 mg QPM PO 04/02/17 21:00 05/02/17 20:59 04/03/17 20:22 40 MG Sodium Biphosphate/ Sodium Phosphate (Fleet Enema) 132 ml DAILY PRN [place] 04/03/17 08:00 05/03/17 07:59 Topiramate (Topamax Tab) 100 mg BID PO 04/02/17 20:00 05/02/17 19:59 04/04/17 09:18 100 MG Artificial Tears (Artificial Tears) 2 drops QID PRN OP 04/02/17 14:45 05/02/17 14:44 Miscellaneous Information (Order Awaiting Action) 1 ea QS N/A 04/02/17 16:00 05/02/17 15:59 Miscellaneous (Fentanyl Patch Remove & Waste) 1 ea Q3D@0859 N/A 04/02/17 15:14 05/02/17 15:13 04/02/17 16:32 1 EA Miscellaneous Information (Check Fentanyl Patch Placement) 1 ea QS N/A 04/02/17 16:00 05/02/17 15:59 04/04/17 09:25 1 EA Ceftriaxone Sodium 1 gm/ Dextrose 50 ml @ 100 mls/hr Q24H IV 04/02/17 14:00 04/12/17 13:59 04/03/17 15:11 100 MLS/HR Vancomycin HCl (Consult) 1 ea UD PRN N/A 04/02/17 15:30 05/02/17 15:29 Albuterol/ Ipratropium (Duoneb) 3 ml Q4R PRN INH 04/02/17 16:00 05/02/17 15:59 Oxycodone HCl (Roxicodone Immediate Rel Tab) 20 mg Q4H PRN PO 04/02/17 16:00 04/16/17 15:59 04/03/17 20:32 20 MG Vancomycin HCl 1250 mg/Sodium Chloride 275 ml @ 125 mls/hr Q12@0600,1800 IV 04/04/17 18:00 04/14/17 17:59 Objective Vital Signs Date Time Temp Pulse Resp B/P (MAP) Pulse Ox O2 Delivery O2 Flow Rate FiO2 04/04/17 07:29 36.6 83 16 134/85 (101) 93 04/04/17 00:00 Room Air 04/03/17 23:15 36.4 67 17 131/62 (85) 96 Room Air 04/03/17 19:00 Room Air 04/03/17 16:08 36.4 68 18 104/70 (81) 95 Room Air 04/03/17 16:00 Room Air Physical Exam General Appearance: WD/WN, no apparent distress Eyes: normal inspection, EOMI, sclerae normal ENT: normal ENT inspection, hearing grossly normal, pharynx normal Neck: supple, no adenopathy, no JVD, trachea midline Respiratory/Chest: chest non-tender, lungs clear, normal breath sounds, no respiratory distress, no accessory muscle use Cardiovascular: regular rate, rhythm, no edema, no gallop, no JVD, no murmur Abdomen: normal bowel sounds, non tender, soft, no organomegaly Extremities: no pedal edema, no calf tenderness, pelvis stable, + slow capillary refill, + pertinent finding (left BKA, right foot wrapped, tender, decreased AROM) Neurologic/Psychiatric: book illustrator II-XII nml as tested, alert, oriented x 3, + motor weakness (generalized), + depressed affect Skin: + pertinent finding (right sacral pressure ulcer, stage II/III) Laboratory Results Last 24 Hours Test 04/04/17 03:20 Creatinine 1.02 mg/dl Est Creatinine Clear Calc Drug Dose 86.2 ml/min Estimated GFR () 87.1 Estimated GFR (Non- 75.2 Vancomycin Level Trough 21.2 mcg/ml Assessment and Plan Patient is a 66 y/o male, with PMHx of chronic systolic CHF- EF 25-30%, VT- AICD placement, CAD- history of OR, Gout, Prostate CA, COPD, Chronic AF, HLD, HTN, Factor V Leiden mutation and h/o PE , Renetta's syndrome , Severe PAD s/p L BKA, s/p R iliac profundoplasty and stent, Chronic troponin elevation, recurrent UTIs, GERD, and anxiety, who was a direct admit from [facility] due to R groin cellulitis. R groin cellulitis s/p R iliac profundoplasty and stent by Dr. Gomez in November 2016- growing MRSA and Proteus mirabilis from cultures on 03/30: - continue IV Rocephin + Vancomycin - BCx from 03/30- NGTD - Wound care consulted, needs to see patient for sacral ulcer as well as right groin wound - general surgery recommends 72 hours of IV antibiotics, have Dr. Gomez evaluate on Wednesday - no plans for I&D at this time - patient is afebrile, WBC normal, vitals stable, no significant groin pain - Sacral pressure ulcer: appears to be stage II/III but will wait for wound care to give their opinion wound care to see tomorrow, clean wound and skin Chronic a.fib, CAD s/p OR, h/o VT w/ AICD, HTN, HLD, systolic CHF: - Continue Coreg 9.375 mg daily, ASA 81 mg daily, Xarelto 20 mg HS, Lasix 60 mg daily, Imdur 60 mg daily, Zocor 40 mg HS, Losartan 25 mg daily PAD, PVD: Continue ASA and Zocor Anxiety: Zoloft 200 mg daily COPD w/out exacerbation: Continue home inhalers Gout: Continue Allopurinol 100 mg daily Factor V Leiden mutation and h/o PE: Xarelto GERD, GI prophylaxis: Zantac 150 mg BID DVT prophylaxis: Xarelto Code Status: LEVEL I, FULL Dispo: From [facility]- PT/OT and CM consulted
[2017-04-04] MEDS: CEFTRIAXONE SOD INJ 1 GM in DEXTROSE 5% ADD-VANTAGE 50ML 50 ML IV SCH (15:22)
[2017-04-04 15:27] VITALS: BP 133/80; PULSE 68; TEMP 36.6; O2SAT 96
--- NOTE | 2017-04-04 15:44 | NUR ---
A: Pt's , Carolina, here to see pt. Code word verified. Updated re: overall status. Updated Carolina's contact info with admissions. Carolina also wanted to add daughter, Kellen Valadez, phone # [phone], to pt's contact info. [facility], [facility], aware.
--- NOTE | 2017-04-04 16:09 | Pharmacy Progress Note ---
Pharmacy Antibiotic Prog Note Date of Service Apr 04, 2017. Subjective The patient is currently receiving vancomycin 1500 mg IV every 12 hours. The patient is currently on day # 3 of vancomycin IV therapy. Objective Height (Feet): 5 Height (Inches): 11.00 Weight (Kilograms): 103.300 Lab Results (24hrs): Test 04/04/17 03:20 Creatinine 1.02 mg/dl (0.60-1.40) Est Creatinine Clear Calc Drug Dose 86.2 ml/min Estimated GFR () 87.1 Estimated GFR (Non- 75.2 Vancomycin Level Trough 21.2 mcg/ml (SEE COMMENT) Assessment & Plan Assessment * 66 yo M with cellulitis of groin. * Cultures obtained 03/30 w MRSA and Proteus (resistant to fluoroquinolones but sensitive to all others). * On ceftriaxone and vancomycin * SCr stable and at/near baseline Vancomycin dosing * Goal vancomycin trough 15-20 mcg/mL * Trough of 21.2 mcg/mL is slightly supratherapeutic. * Will decrease dose, but only slightly as would prefer upper end of therapeutic range 2nd confirmed MRSA * Repeat trough prior to 4th dose of new regimen Plan * Decrease vancomycin 1250 mg IV q12h * Trough 1/2 @ 0530 Pharmacy will continue to follow and will adjust dose/frequency as necessary. Thank you
[2017-04-04 17:28] VITALS: BP 111/75; PULSE 102; TEMP 36.6; O2SAT 96
[2017-04-04] MEDS: VANCOMYCIN IV 1,250 MG in SODIUM CHLORIDE 0.9% 250ML 250 ML IV SCH (18:24)
[2017-04-04] MEDS: RIVAROXABAN 20 MG TAB PO SCH (18:26)
[2017-04-04 20:00] VITALS: O2SAT 96
[2017-04-04] MEDS: SIMVASTATIN 40 MG TAB PO SCH (20:56)
[2017-04-04] MEDS: GABAPENTIN 600 MG TAB PO SCH (20:57)
[2017-04-04] MEDS: OXYCODONE HCL IR 5 MG TAB (IMMEDIATE RELEASE) PO PRN (21:40)
[2017-04-04 23:36] VITALS: BP 111/69; PULSE 70; TEMP 36.7; O2SAT 96
[2017-04-05 00:45] VITALS: O2SAT 96
[2017-04-05] MEDS: IPRATROPIUM BROMIDE/ALBUTEROL respimat INH INH SCH ×3 (05:38→18:48)
[2017-04-05] MEDS: VANCOMYCIN IV 1,250 MG in SODIUM CHLORIDE 0.9% 250ML 250 ML IV SCH ×2 (05:38→18:22)
--- NOTE | 2017-04-05 06:29 | NUR ---
ID: PT ALERT AND ORIENTED. C/O GENERALIZED PAIN. PRN PAIN MEDICATION GIVEN. PT HAS SL. RECEIVING IV ANTIBIOTICS. INCONTINENT OF URINE THIS SHIFT. 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 HOURLY ROUNDING MAINTAINED/ENCOURAGED TO RING FOR ASSISTANCE.
[2017-04-05 06:45] LABS: HEMATOCRIT 35.4 % (42-52); HEMOGLOBIN 11.3 g/dL (14.0-18.0); MEAN CELL VOLUME 99.4 fL (80-100); MEAN CORPUSCULAR HEMOGLOBIN 31.7 pg (25-34); MEAN CORPUSCULAR HGB CONC 31.9 g/dl (32-36); MEAN PLATELET VOLUME 9.6 fL (7.4-10.4); PLATELET COUNT 244 K/uL (130-400); RED CELL DISTRIBUTION WIDTH CV 13.9 % (11.5-14.5); RED CELL DISTRIBUTION WIDTH SD 49.9 fL (36.4-46.3); WHITE BLOOD COUNT 8.69 K/uL (4.8-10.8)
[2017-04-05 07:11] LABS: CREATININE 0.88 mg/dl (0.60-1.40)
[2017-04-05 07:25] VITALS: BP 122/86; PULSE 76; TEMP 36.5; O2SAT 99
--- NOTE | 2017-04-05 08:03 | Family Medicine Progress Note ---
Progress Note Date of Service Apr 05, 2017. Subjective Pt evaluation today including: conversation w/ patient, physical exam, chart review, lab review, review of studies, review of inpatient medication list Pain: No acute events overnight PO Intake: adequate Voiding: no voiding problems NO acute events overnight. Patient denies fevers, chills, N/V, Abdominal pain, diarrhea, pain at the wound site Constitutional: No fever, No chills Respiratory: No cough, No shortness of breath Cardiovascular: No chest pain, No palpitations Abdomen: No pain, No nausea, No vomiting, No diarrhea Musculoskeletal: + problem reported (L BKA) Male : No dysuria, No urinary frequency Skin: No itch Medications Current Inpatient Medications Medications (Trade) Dose Ordered Sig/Emily Route Start Time Stop Time Status Last Admin Dose Admin Acetaminophen (Tylenol Tab) 650 mg Q4H PRN PO 04/02/17 13:30 05/02/17 13:29 Al Hydrox/Mg Hydrox/Simethicone (Maalox Max Susp) 15 ml Q4H PRN PO 04/02/17 13:30 05/02/17 13:29 Magnesium Hydroxide (Milk Of Magnesia Susp) 30 ml Q6H PRN PO 04/02/17 13:30 05/02/17 13:29 Polyethylene (Miralax Powder Packet) 17 gm DAILY PRN PO 04/02/17 13:30 05/02/17 13:29 Ondansetron HCl (Zofran Inj) 4 mg Q6H PRN IV 04/02/17 13:30 05/02/17 13:29 Acetaminophen (Tylenol Tab) 1,000 mg BID PO 04/02/17 20:00 05/02/17 19:59 04/05/17 19:51 1,000 MG Allopurinol (Zyloprim Tab) 100 mg QAM PO 04/03/17 08:00 05/03/17 07:59 04/05/17 08:52 100 MG Aspirin (Ecotrin Tab) 81 mg QAM PO 04/03/17 08:00 05/03/17 07:59 04/05/17 08:52 81 MG Bisacodyl (Dulcolax Supp) 10 mg UD PRN [place] 04/02/17 14:15 05/02/17 14:14 Carvedilol (Coreg Tab) 9.375 mg BID PO 04/02/17 20:00 05/02/17 19:59 04/05/17 19:50 9.375 MG Fentanyl (Duragesic Patch) 50 mcg Q3D@0900 TD 04/02/17 15:15 04/16/17 15:14 04/05/17 10:18 50 MCG Ferrous Sulfate (Feosol Tab) 325 mg BID PO 04/02/17 20:00 05/02/17 19:59 04/05/17 19:50 325 MG Salmeterol Xinafoate/ Fluticasone (Advair Diskus 500/50 Inh) 1 puff BID INH 04/02/17 20:00 05/02/17 19:59 04/05/17 19:49 1 PUFF Furosemide (Lasix Tab) 60 mg QAM PO 04/03/17 08:00 05/03/17 07:59 04/05/17 08:54 60 MG Gabapentin (Neurontin Cap) 200 mg QAM PO 04/03/17 08:00 05/03/17 07:59 04/05/17 08:54 200 MG Gabapentin (Neurontin Tab) 600 mg HS PO 04/02/17 22:00 05/02/17 21:59 04/04/17 20:57 600 MG Guaifenesin (Robitussin Sugar Free Syrup) 200 mg Q6H PRN PO 04/02/17 14:15 05/02/17 14:14 Albuterol/ Ipratropium (Combivent Respimat Inh) 1 puffs Q6 INH 04/02/17 18:00 05/02/17 17:59 04/05/17 18:48 1 PUFFS Isosorbide Mononitrate (Imdur Ext Rel Tab) 60 mg QAM PO 04/03/17 08:00 05/03/17 07:59 04/05/17 08:52 60 MG Losartan Potassium (coZAAR TAB) 25 mg QAM PO 04/03/17 08:00 05/03/17 07:59 04/05/17 08:52 25 MG Potassium Chloride (Klor-Con M10) 20 meq QAM PO 04/03/17 08:00 05/03/17 07:59 04/05/17 08:56 20 MEQ Ranitidine HCl (zANTac TAB) 150 mg BID PO 04/02/17 20:00 05/02/17 19:59 04/05/17 19:51 150 MG Rivaroxaban (Xarelto Tab) 20 mg QDD PO 04/02/17 17:00 05/02/17 16:59 04/05/17 16:30 20 MG Sertraline HCl (Zoloft Tab) 200 mg QAM PO 04/03/17 08:00 05/03/17 07:59 04/05/17 08:54 200 MG Simvastatin (Zocor Tab) 40 mg QPM PO 04/02/17 21:00 05/02/17 20:59 04/04/17 20:56 40 MG Sodium Biphosphate/ Sodium Phosphate (Fleet Enema) 132 ml DAILY PRN [place] 04/03/17 08:00 05/03/17 07:59 Topiramate (Topamax Tab) 100 mg BID PO 04/02/17 20:00 05/02/17 19:59 04/05/17 19:50 100 MG Artificial Tears (Artificial Tears) 2 drops QID PRN OP 04/02/17 14:45 05/02/17 14:44 Miscellaneous Information (Order Awaiting Action) 1 ea QS N/A 04/02/17 16:00 05/02/17 15:59 Miscellaneous (Fentanyl Patch Remove & Waste) 1 ea Q3D@0859 N/A 04/02/17 15:14 05/02/17 15:13 04/05/17 10:18 1 EA Miscellaneous Information (Check Fentanyl Patch Placement) 1 ea QS N/A 04/02/17 16:00 05/02/17 15:59 04/05/17 15:31 1 EA Ceftriaxone Sodium 1 gm/ Dextrose 50 ml @ 100 mls/hr Q24H IV 04/02/17 14:00 04/12/17 13:59 04/05/17 13:46 100 MLS/HR Vancomycin HCl (Consult) 1 ea UD PRN N/A 04/02/17 15:30 05/02/17 15:29 Albuterol/ Ipratropium (Duoneb) 3 ml Q4R PRN INH 04/02/17 16:00 05/02/17 15:59 Oxycodone HCl (Roxicodone Immediate Rel Tab) 20 mg Q4H PRN PO 04/02/17 16:00 04/16/17 15:59 04/04/17 21:40 20 MG Vancomycin HCl 1250 mg/Sodium Chloride 275 ml @ 125 mls/hr Q12@0600,1800 IV 04/04/17 18:00 04/14/17 17:59 04/05/17 18:22 125 MLS/HR Objective Vital Signs Date Time Temp Pulse Resp B/P (MAP) Pulse Ox O2 Delivery O2 Flow Rate FiO2 04/05/17 19:48 121/71 (88) 04/05/17 15:45 96 Room Air 04/05/17 15:32 36.7 67 20 120/76 (91) 96 Room Air 04/05/17 07:45 Room Air 04/05/17 07:25 36.5 76 20 122/86 (98) 99 Room Air 04/05/17 00:45 96 Room Air 04/04/17 23:36 36.7 70 19 111/69 (83) 96 Room Air Physical Exam Notes: GENERAL: alert, no distress, EYE EXAM: normal conjunctiva, PERRL and EOM's grossly intact NECK: supple, no adenopathy, non-tender LUNGS: Clear to auscultation. Normal chest wall mechanics HEART: no murmurs, S1 normal and S2 normal ABDOMEN: abdomen soft, non-tender, normo-active bowel sounds, no masses, no rebound or guarding. SKIN: sacral ulcer UPPER EXTREMITIES: upper extremities are grossly normal. LOWER EXTREMITIES: Left BKA, right foot wrapped NEURO EXAM: Normal sensorium, cranial nerves II-XII grossly intact, normal speech Laboratory Results Results Past 24 Hours Test 04/05/17 06:19 Range/Units White Blood Count 8.69 4.8-10.8 K/uL Red Blood Count 3.56 4.7-6.1 M/uL Hemoglobin 11.3 14.0-18.0 g/dL Hematocrit 35.4 42-52 % Mean Corpuscular Volume 99.4 80-100 fL Mean Corpuscular Hemoglobin 31.7 25-34 pg Mean Corpuscular Hemoglobin Concent 31.9 32-36 g/dl RDW Standard Deviation 49.9 36.4-46.3 fL RDW Coefficient of Variation 13.9 11.5-14.5 % Platelet Count 244 130-400 K/uL Mean Platelet Volume 9.6 7.4-10.4 fL Creatinine 0.88 0.60-1.40 mg/dl Est Creatinine Clear Calc Drug Dose 98.3 ml/min Estimated GFR () 102.3 Estimated GFR (Non- 88.3 Assessment and Plan 66 yo M w/ h/o Chronic systolic CHF, CAD, chronic troponin elevation Afib, COPD , Prostate cancer, Factor V Leiden, severe PAD s/p L BKA s/p iliac profundoplasty and stent, recurrent UTI GERD p/w R groin cellulitis. R groin cellulitis s/p R iliac profundoplasty and stent by Dr. Gomez in November 2016- growing MRSA and Proteus mirabilis from cultures on 03/30: - afebrile,no leukocytosis, VSS, no reported groin pain - continue IV Rocephin + Vancomycin - Blood Cx from 03/30- NGTD - Wound care - Vasc Surgery consulted. - Sacral pressure ulcer: wound care Chronic a.fib, CAD s/p [place], h/o [place] w/ AICD, HTN, HLD, systolic CHF: - Continue Coreg 9.375 mg daily, ASA 81 mg daily, Xarelto 20 mg HS, Lasix 60 mg daily, Imdur 60 mg daily, Zocor 40 mg HS, Losartan 25 mg daily PAD, PVD: Continue ASA and Zocor Anxiety: Zoloft 200 mg daily COPD w/out exacerbation: Continue home inhalers Gout: Continue Allopurinol 100 mg daily Factor V Leiden mutation and h/o PE: Xarelto GERD, GI prophylaxis: Zantac 150 mg BID DVT prophylaxis: Xarelto Code Status: LEVEL I, FULL Dispo: From [facility]- PT/OT and CM consulted Continued [facility] stay due to: multiple IV medications needed Discharge planning: residential facility History Resident Physician Supervision Note: I was present with Dr. Sharif during the history and exam. I discussed the case with the resident and agree with the findings and plan as documented in the note. Any exceptions or clarifications are listed here. Pt reports minimal pain at the site of drainage or in surrounding tissue, with mild improvement in redness. Reports no fever, chills, sensory changes, abd pain , penile or urinary complaints. General Appearance: WD/WN, no apparent distress Respiratory: chest non-tender, lungs clear, normal breath sounds Cardiovascular: normal peripheral pulses, no murmur, other (RLE edema with venous stasis changes and TTP which are baseline per pt) Extremities: other (right groin wound with induration without TTP or expressable drainage with manipulation) Neurologic/Psychiatric: no motor/sensory deficits, alert, normal mood/affect, oriented x 3 Assessment/Plan 66 y/o male h/o chronic systolic CHF (EF 25-30%), [place] s/p AICD, CAD (h/o [place]), chronic AF, HTN, HLD, Factor V Leiden (h/o PE), PAD (s/p L BKA, R iliac profundoplasty and stent), chronic elevated torponin, gout, prostate CA, GERD, anxiety and recurrent UTI admitted from [facility] for R groin cellulitis R groin cellulitis w/ drainage s/p R iliac profundoplasty and stenting (Nov 2016 ) - Cx w/ MRSA and proteus - Wound care consulted - Dr. Gomez consult in AM - t/c further imaging w/ CT if increasing drainage or other new sx - on IV Rocephin and Vancomycin w/ improvement Sacral pressure ulcer - wound care consulted Chronic AF, CAD s/p [place], [place] s/p AICD, HTN, HLD, sCHF - continue ASA, coreg, losartan, simvastatin, imdur, lasix, xarelto PAD, PVD - continue ASA and simvastatin COPD - stable, continue present regimen Factor V Leiden - continue xarelto GERD - continue ranitidine BID Anxiety - sertraline 200mg daily Code Status: LEVEL I, FULL
--- NOTE | 2017-04-05 08:04 | Family Medicine Progress Note ---
Progress Note Date of Service Apr 05, 2017.
[2017-04-05] MEDS: FLUTICASONE/SALMETEROL (ADVAIR) 500/50 INH 14 PUFF INH SCH ×2 (08:50→19:49)
[2017-04-05] MEDS: RANITIDINE HCL 150 MG TAB PO SCH ×2 (08:51→19:51)
[2017-04-05] MEDS: TOPIRAMATE 100 MG TAB PO SCH ×2 (08:51→19:50)
[2017-04-05] MEDS: CARVEDILOL 3.125 MG TAB PO SCH ×2 (08:51→19:50)
[2017-04-05] MEDS: LOSARTAN POTASSIUM 25 MG TAB PO SCH (08:52)
[2017-04-05] MEDS: FERROUS SULFATE 325 MG TAB PO SCH ×2 (08:52→19:50)
[2017-04-05] MEDS: ISOSORBIDE MONONITRATE 60 MG TABCR PO SCH (08:52)
[2017-04-05] MEDS: ALLOPURINOL 100 MG TAB PO SCH (08:52)
[2017-04-05] MEDS: ASPIRIN 81 MG ECTAB PO SCH (08:52)
[2017-04-05] MEDS: SERTRALINE HCL 100 MG TAB PO SCH (08:54)
[2017-04-05] MEDS: FUROSEMIDE 40 MG TAB PO SCH (08:54)
[2017-04-05] MEDS: GABAPENTIN 100 MG CAP PO SCH (08:54)
[2017-04-05] MEDS: POTASSIUM CHLORIDE 10 MEQ TABCR PO SCH (08:56)
[2017-04-05] MEDS: ACETAMINOPHEN 500 MG TAB PO SCH ×2 (08:56→19:51)
[2017-04-05] MEDS: CHECK FENTANYL PATCH PLACEMENT SCH ×2 (08:57→15:31)
[2017-04-05] MEDS: FENTANYL PATCH REMOVE & WASTE SCH (10:18)
[2017-04-05] MEDS: FENTANYL 50 MCG/HR TDSY TD SCH (10:18)
[2017-04-05] MEDS: CEFTRIAXONE SOD INJ 1 GM in DEXTROSE 5% ADD-VANTAGE 50ML 50 ML IV SCH (13:46)
[2017-04-05 15:32] VITALS: BP 120/76; PULSE 67; TEMP 36.7; O2SAT 96
[2017-04-05 15:45] VITALS: O2SAT 96
[2017-04-05] MEDS: RIVAROXABAN 20 MG TAB PO SCH (16:30)
[2017-04-05 19:48] VITALS: BP 121/71
[2017-04-05] MEDS: SIMVASTATIN 40 MG TAB PO SCH (22:28)
[2017-04-05] MEDS: GABAPENTIN 600 MG TAB PO SCH (22:28)
[2017-04-05 23:29] VITALS: BP 122/80; PULSE 73; TEMP 36.5; O2SAT 95
--- NOTE | 2017-04-06 00:38 | NUR ---
A: Pt alert and oriented X4. No complaints of pain or SOB at this time. Pt refused to have fentanyl patch checked. VSS. Assessment completed, unable to fully assess patients skin due to him refusing. IV site intact. Hourly rounding maintained. Will continue to monitor. S/S involved for d/c
--- NOTE | 2017-04-06 01:27 | NUR ---
ID: Pt alert and oriented. No complaints of pain or SOB at this time. VSS. Assessment completed. IV site intact. Still receiving IV antibiotics per MD orders. S/S involved in D/C planning. Hourly rounding maintained, will continue to monitor.
[2017-04-06] MEDS ORDERED: VANCOMYCIN TROUGH ONE (05:30)
[2017-04-06] MEDS: VANCOMYCIN IV 1,250 MG in SODIUM CHLORIDE 0.9% 250ML 250 ML IV SCH (05:37)
[2017-04-06] MEDS: IPRATROPIUM BROMIDE/ALBUTEROL respimat INH INH SCH ×4 (05:55→16:52)
[2017-04-06 07:22] VITALS: BP 131/88; PULSE 70; TEMP 36.9; O2SAT 99
--- NOTE | 2017-04-06 07:49 | Clinical Documentation Query ---
QUERY 1 OF [address] GONZALEZ, In your clinical opinion is this patient being managed for: ( ) R groin cellulitis/wound infection due to recent R iliac profundoplasty and stent ( ) Not Agree ( ) Other explanation of clinical findings (Please Explain) ( ) Unable to determine (Please Define) ( ) Need to Discuss The medical record reflects the following clinical findings, treatment, and risk factors. Clinical Indicators: Documentation indicates "R groin cellulitis s/p R iliac profundoplasty and stent". Treatment: IV rocephin, IV vancomycin, WOCN/surgery/vascular surgery consults, contact precautions Risk Factors: prior surgical procedure *Code assignment is based on the provider's documentation of the relationship between the condition and the care or procedure provided/performed. *It is important to note that not all conditions that occur during or following medical care or surgery are classified as complications. *There must be a [id number] relationship between the care provided and the condition, and an indication in the documentation that it is a complication. *Please include in your documentation of the [id number] relationship whether the resulting condition is expected, anticipated, unavoidable, or inherent to the treatment. QUERY 2 OF 2 Pressure ulcers are considered Patient Safety Indicators and documentation must reflect their status--POA or not POA. Please Document Present on Admission Status for: ( ) Sacral pressure ulcer, stage 3, POA ( ) Sacral pressure ulcer, stage 3, not POA Documentation of the presence of the sacral pressure ulcer was not noted on the H/P. It was not documented until the third hospital day 04/04/17. Coders cannot assume that the ulcer was POA. Thank You, Felicia Jefferson, RN [phone]
[2017-04-06] MEDS: FUROSEMIDE 40 MG TAB PO SCH ×2 (08:00→08:21)
[2017-04-06] MEDS: FLUTICASONE/SALMETEROL (ADVAIR) 500/50 INH 14 PUFF INH SCH ×2 (08:21→19:33)
[2017-04-06] MEDS: POTASSIUM CHLORIDE 10 MEQ TABCR PO SCH (08:22)
[2017-04-06] MEDS: GABAPENTIN 100 MG CAP PO SCH (08:22)
[2017-04-06] MEDS: TOPIRAMATE 100 MG TAB PO SCH ×2 (08:22→19:33)
[2017-04-06] MEDS: CARVEDILOL 3.125 MG TAB PO SCH ×2 (08:22→20:00)
[2017-04-06] MEDS: ACETAMINOPHEN 500 MG TAB PO SCH ×3 (08:23→20:00)
[2017-04-06] MEDS: ISOSORBIDE MONONITRATE 60 MG TABCR PO SCH (08:23)
[2017-04-06] MEDS: LOSARTAN POTASSIUM 25 MG TAB PO SCH (08:23)
[2017-04-06] MEDS: ALLOPURINOL 100 MG TAB PO SCH (08:24)
[2017-04-06] MEDS: SERTRALINE HCL 100 MG TAB PO SCH (08:24)
[2017-04-06] MEDS: ASPIRIN 81 MG ECTAB PO SCH (08:24)
[2017-04-06] MEDS: FERROUS SULFATE 325 MG TAB PO SCH ×2 (08:24→19:32)
[2017-04-06] MEDS: RANITIDINE HCL 150 MG TAB PO SCH ×2 (08:24→19:36)
--- NOTE | 2017-04-06 08:24 | Clinical Documentation Query ---
QUERY 1 OF [address] SALCIDO, In your clinical opinion is this patient being managed for: ( ) R groin cellulitis/wound infection due to recent R iliac profundoplasty and stent X) Not Agree - insufficient data to determine causation ( ) Other explanation of clinical findings (Please Explain) ( ) Unable to determine (Please Define) ( ) Need to Discuss The medical record reflects the following clinical findings, treatment, and risk factors. Clinical Indicators: Documentation indicates "R groin cellulitis s/p R iliac profundoplasty and stent". Treatment: IV rocephin, IV vancomycin, WOCN/surgery/vascular surgery consults, contact precautions Risk Factors: prior surgical procedure *Code assignment is based on the provider's documentation of the relationship between the condition and the care or procedure provided/performed. *It is important to note that not all conditions that occur during or following medical care or surgery are classified as complications. *There must be a [id number] relationship between the care provided and the condition, and an indication in the documentation that it is a complication. *Please include in your documentation of the [id number] relationship whether the resulting condition is expected, anticipated, unavoidable, or inherent to the treatment. QUERY 2 OF 2 Pressure ulcers are considered Patient Safety Indicators and documentation must reflect their status--POA or not POA. Please Document Present on Admission Status for: ( ) Sacral pressure ulcer, stage 3, POA ( ) Sacral pressure ulcer, stage 3, not POA Documentation of the presence of the sacral pressure ulcer was not noted on the H/P. It was not documented until the third hospital day 04/04/17. Coders cannot assume that the ulcer was POA. Thank You, Felicia Jefferson, OSMAR [phone]
[2017-04-06] MEDS: CHECK FENTANYL PATCH PLACEMENT SCH ×3 (08:25→15:13)
--- NOTE | 2017-04-06 08:26 | Family Medicine Progress Note ---
Progress Note Date of Service Apr 06, 2017. Subjective Pt evaluation today including: conversation w/ patient, physical exam, chart review, lab review, review of studies, review of inpatient medication list Pain: dneis pain at site of cellulitis PO Intake: adequate Voiding: no voiding problems No acute events overnight, Per nursing, patient has refused dressing changes of wounds. He denies fevers, chills, n/v, abdominal pain, diarrhea Constitutional: No fever, No chills Respiratory: No cough, No shortness of breath Cardiovascular: No chest pain, No edema, No palpitations Abdomen: No pain, No nausea, No vomiting, No diarrhea Male : No dysuria, No urinary frequency Medications Current Inpatient Medications Medications (Trade) Dose Ordered Sig/Emily Route Start Time Stop Time Status Last Admin Dose Admin Acetaminophen (Tylenol Tab) 650 mg Q4H PRN PO 04/02/17 13:30 05/02/17 13:29 Al Hydrox/Mg Hydrox/Simethicone (Maalox Max Susp) 15 ml Q4H PRN PO 04/02/17 13:30 05/02/17 13:29 Magnesium Hydroxide (Milk Of Magnesia Susp) 30 ml Q6H PRN PO 04/02/17 13:30 05/02/17 13:29 Polyethylene (Miralax Powder Packet) 17 gm DAILY PRN PO 04/02/17 13:30 05/02/17 13:29 Ondansetron HCl (Zofran Inj) 4 mg Q6H PRN IV 04/02/17 13:30 05/02/17 13:29 Acetaminophen (Tylenol Tab) 1,000 mg BID PO 04/02/17 20:00 05/02/17 19:59 04/05/17 19:51 1,000 MG Allopurinol (Zyloprim Tab) 100 mg QAM PO 04/03/17 08:00 05/03/17 07:59 04/05/17 08:52 100 MG Aspirin (Ecotrin Tab) 81 mg QAM PO 04/03/17 08:00 05/03/17 07:59 04/05/17 08:52 81 MG Bisacodyl (Dulcolax Supp) 10 mg UD PRN [place] 04/02/17 14:15 05/02/17 14:14 Carvedilol (Coreg Tab) 9.375 mg BID PO 04/02/17 20:00 05/02/17 19:59 04/05/17 19:50 9.375 MG Fentanyl (Duragesic Patch) 50 mcg Q3D@0900 TD 04/02/17 15:15 04/16/17 15:14 04/05/17 10:18 50 MCG Ferrous Sulfate (Feosol Tab) 325 mg BID PO 04/02/17 20:00 05/02/17 19:59 04/05/17 19:50 325 MG Salmeterol Xinafoate/ Fluticasone (Advair Diskus 500/50 Inh) 1 puff BID INH 04/02/17 20:00 05/02/17 19:59 04/05/17 19:49 1 PUFF Furosemide (Lasix Tab) 60 mg QAM PO 04/03/17 08:00 05/03/17 07:59 04/05/17 08:54 60 MG Gabapentin (Neurontin Cap) 200 mg QAM PO 04/03/17 08:00 05/03/17 07:59 04/05/17 08:54 200 MG Gabapentin (Neurontin Tab) 600 mg HS PO 04/02/17 22:00 05/02/17 21:59 04/05/17 22:28 600 MG Guaifenesin (Robitussin Sugar Free Syrup) 200 mg Q6H PRN PO 04/02/17 14:15 05/02/17 14:14 Albuterol/ Ipratropium (Combivent Respimat Inh) 1 puffs Q6 INH 04/02/17 18:00 05/02/17 17:59 04/06/17 05:55 1 PUFFS Isosorbide Mononitrate (Imdur Ext Rel Tab) 60 mg QAM PO 04/03/17 08:00 05/03/17 07:59 04/05/17 08:52 60 MG Losartan Potassium (coZAAR TAB) 25 mg QAM PO 04/03/17 08:00 05/03/17 07:59 04/05/17 08:52 25 MG Potassium Chloride (Klor-Con M10) 20 meq QAM PO 04/03/17 08:00 05/03/17 07:59 04/05/17 08:56 20 MEQ Ranitidine HCl (zANTac TAB) 150 mg BID PO 04/02/17 20:00 05/02/17 19:59 04/05/17 19:51 150 MG Rivaroxaban (Xarelto Tab) 20 mg QDD PO 04/02/17 17:00 05/02/17 16:59 04/05/17 16:30 20 MG Sertraline HCl (Zoloft Tab) 200 mg QAM PO 04/03/17 08:00 05/03/17 07:59 04/05/17 08:54 200 MG Simvastatin (Zocor Tab) 40 mg QPM PO 04/02/17 21:00 05/02/17 20:59 04/05/17 22:28 40 MG Sodium Biphosphate/ Sodium Phosphate (Fleet Enema) 132 ml DAILY PRN [place] 04/03/17 08:00 05/03/17 07:59 Topiramate (Topamax Tab) 100 mg BID PO 04/02/17 20:00 05/02/17 19:59 04/05/17 19:50 100 MG Artificial Tears (Artificial Tears) 2 drops QID PRN OP 04/02/17 14:45 05/02/17 14:44 Miscellaneous Information (Order Awaiting Action) 1 ea QS N/A 04/02/17 16:00 05/02/17 15:59 Miscellaneous (Fentanyl Patch Remove & Waste) 1 ea Q3D@0859 N/A 04/02/17 15:14 05/02/17 15:13 04/05/17 10:18 1 EA Miscellaneous Information (Check Fentanyl Patch Placement) 1 ea QS N/A 04/02/17 16:00 05/02/17 15:59 04/05/17 15:31 1 EA Ceftriaxone Sodium 1 gm/ Dextrose 50 ml @ 100 mls/hr Q24H IV 04/02/17 14:00 04/12/17 13:59 04/05/17 13:46 100 MLS/HR Vancomycin HCl (Consult) 1 ea UD PRN N/A 04/02/17 15:30 05/02/17 15:29 Albuterol/ Ipratropium (Duoneb) 3 ml Q4R PRN INH 04/02/17 16:00 05/02/17 15:59 Oxycodone HCl (Roxicodone Immediate Rel Tab) 20 mg Q4H PRN PO 04/02/17 16:00 04/16/17 15:59 04/04/17 21:40 20 MG Vancomycin HCl 1250 mg/Sodium Chloride 275 ml @ 125 mls/hr Q12@0600,1800 IV 04/04/17 18:00 04/14/17 17:59 04/06/17 05:37 125 MLS/HR Objective Vital Signs Date Time Temp Pulse Resp B/P (MAP) Pulse Ox O2 Delivery O2 Flow Rate FiO2 04/06/17 07:22 36.9 70 20 131/88 (102) 99 Room Air 04/06/17 00:00 Room Air 04/05/17 23:29 36.5 73 18 122/80 (94) 95 Room Air 04/05/17 19:48 121/71 (88) 04/05/17 15:45 96 Room Air 04/05/17 15:32 36.7 67 20 120/76 (91) 96 Room Air Laboratory Results Results Past 24 Hours Test 04/06/17 05:16 Range/Units Vancomycin Level Trough 27.2 SEE COMMENT mcg/ml Assessment and Plan Continued [facility] stay due to: multiple IV medications needed Discharge planning: senior living facility Resident Tracking Resident Involvement: Resident Care Provided Care Provided: Adult Hospital Medicine
--- NOTE | 2017-04-06 08:47 | Family Medicine Progress Note ---
Progress Note Date of Service Apr 06, 2017. Subjective Pt evaluation today including: conversation w/ patient, physical exam, chart review, lab review, review of studies, review of inpatient medication list Pain: denies PO Intake: adequate Voiding: no voiding problems No acute events overnight, Per nursing, patient has refused dressing changes of wounds. He denies fevers, chills, n/v, abdominal pain, diarrhea Medications Date Time Temp Pulse Resp B/P (MAP) Pulse Ox O2 Delivery O2 Flow Rate FiO2 04/06/17 07:22 36.9 70 20 131/88 (102) 99 Room Air 04/06/17 00:00 Room Air 04/05/17 23:29 36.5 73 18 122/80 (94) 95 Room Air 04/05/17 19:48 121/71 (88) 04/05/17 15:45 96 Room Air 04/05/17 15:32 36.7 67 20 120/76 (91) 96 Room Air Objective Vital Signs Date Time Temp Pulse Resp B/P (MAP) Pulse Ox O2 Delivery O2 Flow Rate FiO2 04/06/17 07:22 36.9 70 20 131/88 (102) 99 Room Air 04/06/17 00:00 Room Air 04/05/17 23:29 36.5 73 18 122/80 (94) 95 Room Air 04/05/17 19:48 121/71 (88) 04/05/17 15:45 96 Room Air 04/05/17 15:32 36.7 67 20 120/76 (91) 96 Room Air Physical Exam Notes: GENERAL: alert, no distress, EYE EXAM: normal conjunctiva, PERRL and EOM's grossly intact NECK: supple, non-tender LUNGS: Clear to auscultation. Normal chest wall mechanics HEART: no murmurs, S1 normal and S2 normal ABDOMEN: abdomen soft, non-tender, normo-active bowel sounds, no masses, no rebound or guarding. SKIN: sacral ulcer UPPER EXTREMITIES: upper extremities are grossly normal. LOWER EXTREMITIES: Left BKA, Right foot wrapped in bandage NEURO EXAM: Normal sensorium, cranial nerves II-XII grossly intact, normal speech Laboratory Results Results Past 24 Hours Test 04/06/17 05:16 04/06/17 08:22 Range/Units Vancomycin Level Trough 27.2 SEE COMMENT mcg/ml Assessment and Plan 66 yo M w/ h/o Chronic systolic CHF, CAD, chronic troponin elevation Afib, COPD , Prostate cancer, Factor V Leiden, severe PAD s/p L BKA s/p iliac profundoplasty and stent, recurrent UTI GERD p/w R groin cellulitis. R groin cellulitis s/p R iliac profundoplasty and stent by Dr. Gomez in November 2016- growing MRSA and Proteus mirabilis from cultures on 03/30: - afebrile,, VSS, no reported groin pain - On IV Rocephin + Vancomycin, Plan to convert to PO abx if clear to discharge from vacular team today - Blood Cx from 03/30- NGTD - Wound care - Vasc Surgery consulted. Dr. Gomez to evaluate patient today prior to discharge - Sacral pressure ulcer: wound care Chronic a.fib, CAD s/p [place], h/o [place] w/ AICD, HTN, HLD, systolic CHF: - Continue Coreg 9.375 mg daily, ASA 81 mg daily, Xarelto 20 mg HS, Lasix 60 mg daily, Imdur 60 mg daily, Zocor 40 mg HS, Losartan 25 mg daily PAD, PVD: Continue ASA and Zocor Anxiety: Zoloft 200 mg daily COPD w/out exacerbation: Continue home inhalers Gout: Continue Allopurinol 100 mg daily Factor V Leiden mutation and h/o PE: Xarelto GERD, GI prophylaxis: Zantac 150 mg BID DVT prophylaxis: Xarelto Code Status: LEVEL I, FULL Dispo: Resident [facility], Plan to return on discharge PT/OT F/u with case management Continued [facility] stay due to: ambulation difficulties, multiple IV medications needed Discharge planning: [facility] facility Resident Tracking Resident Involvement: Resident Care Provided Care Provided: Adult Hospital Medicine History Resident Physician Supervision Note: I was present with Dr. Sharif during the history and exam. I discussed the case with the resident and agree with the findings and plan as documented in the note. Any exceptions or clarifications are listed here. Pt reports persistent drainage from the right groin wound with minimal pain. Reports no fever, SOB, lightheadedness, new rashes/lesions. General Appearance: no apparent distress Cardiovascular: normal peripheral pulses, regular rate, rhythm, no murmur Gastrointestinal: normal bowel sounds, non tender, soft, no organomegaly Extremities: other (somewhat more purulent drainage today with expression of indurated regions surrounding the right groin wound) Assessment/Plan 66 y/o male h/o chronic systolic CHF (EF 25-30%), [place] s/p AICD, CAD (h/o [place]), chronic AF, HTN, HLD, Factor V Leiden (h/o PE), PAD (s/p L BKA, R iliac profundoplasty and stent), chronic elevated torponin, gout, prostate CA, GERD, anxiety and recurrent UTI admitted from [facility] for R groin cellulitis R groin cellulitis w/ drainage s/p R iliac profundoplasty and stenting (Nov 2016 ) - Cx w/ MRSA and proteus - Wound care, infectious disease and vascular surgery consulted - per Dr. Gomez , extended course of abx preferred to intervention. will d/w Dr. Kirk - continue IV Rocephin and Vancomycin w/ improvement Hypokalemia - replete potassium Sacral pressure ulcer - wound care consulted Chronic AF, CAD s/p [place], [place] s/p AICD, HTN, HLD, sCHF - continue ASA, coreg, losartan, simvastatin, imdur, lasix, xarelto PAD, PVD - continue ASA and simvastatin COPD - stable, continue present regimen Factor V Leiden - continue xarelto GERD - continue ranitidine BID Anxiety - sertraline 200mg daily Code Status: LEVEL I, FULL
--- NOTE | 2017-04-06 09:17 | NUR ---
A: Pt allowed this nurse to change dressings to right leg, left stump, and sacrum. See skin assessment for full assessment of wounds. Refused to let this nurse change dressing to right arm. While cleaning sacral wound, pt said he wanted me to be finished. I told him I was going as quickly as possible, and he told this nurse to put the dressing on immediately. This nurse was unable to adequately finish cleaning, but optifoam was applied. Refusing to be washed up at this time. Dr. Sharif was made aware of pt refusals. When Dr. Sharif assessed pt, pt stated he did not refuse any care previously. Will continue to monitor.
[2017-04-06 09:20] LABS: BASO % 0.8 %; BASO ABS # 0.06 K/uL (0-0.2); EOS % 2.5 %; HEMATOCRIT 38.4 % (42-52); HEMOGLOBIN 12.1 g/dL (14.0-18.0); IG# 0.05 K/uL (0.00-0.02); LYMPH % 22.3 %; LYMPH ABS # 1.78 K/uL (1.2-3.4); MEAN CELL VOLUME 99.7 fL (80-100); MEAN CORPUSCULAR HEMOGLOBIN 31.4 pg (25-34); MEAN CORPUSCULAR HGB CONC 31.5 g/dl (32-36); MEAN PLATELET VOLUME 9.8 fL (7.4-10.4); MONO % 6.6 %; MONO ABS # 0.53 K/uL (0.11-0.59); NEUT % 67.2 %; NEUT ABS # 5.38 K/uL (1.4-6.5); PLATELET COUNT 274 K/uL (130-400); RED CELL DISTRIBUTION WIDTH SD 50.5 fL (36.4-46.3)
[2017-04-06 09:33] LABS: CREATININE 0.94 mg/dl (0.60-1.40); POTASSIUM 3.4 mmol/L (3.5-5.1)
--- NOTE | 2017-04-06 09:49 | Medical Consult ---
Consultation Date of Consultation: Apr 06, 2017. Attending Physician: Sohail Yusuf MD Reason for Consultation: MRSA cellulitis History of Present Illness 58-year-old male well known to me [facility], complicated past medical history including chronic systolic heart failure, factor 5 Leiden deficiency status post PE, atrial fibrillation, chronic kidney disease, COPD, prostate cancer, with severe peripheral arterial disease status post left BKA and status post vascular intervention earlier this year. He has been having persistent drainage from his right groin since the time of his surgery, and was found to have positive cultures for MRSA as well as more recently Proteus. He has been noncompliant with treatment and follow-up and at one point in February refused further intervention. He has now been readmitted with 1 week history of worsening drainage with increasing erythema of the right groin associated with fever. Has been started on IV vancomycin and ceftriaxone. Repeat cultures are pending. Patient states he is feeling somewhat better since admission. 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 (3) Atrial fibrillation (4) Atrial flutter (5) Benign hypertension (6) Carcinoma of prostate (7) Cellulitis of groin (8) Chronic congestive heart failure (9) Gastroesophageal reflux disease (10) History of - pulmonary embolus (11) Hyperlipidemia (12) Hypoxemia (13) Migraine (14) Sepsis due to pneumonia (15) uti (16) s/p left BKA (17) AICD Family History FHx: ischemic heart disease Social History Smoking Status: Current Every Day Smoker Drug Use: none Marital Status: Housing Status: senior care Occupation Status: disabled Allergies Coded Allergies: Neomycin (Verified Allergy, Intermediate, RED, SORE, 03/30/17) Bacitracin (Verified Allergy, Unknown, unknown, 03/30/17) Kiwi (Verified Allergy, Unknown, itchy, 03/30/17) Polymyxin B (Verified Allergy, Unknown, unknown, 03/30/17) Morphine (Verified Adverse Reaction, Intermediate, HALLUCINATION, CONFUSION,AGITATION, 03/30/17) Current Inpatient Medications Current Inpatient Medications Medications (Trade) Dose Ordered Sig/Emily Route Start Time Stop Time Status Last Admin Dose Admin Acetaminophen (Tylenol Tab) 650 mg Q4H PRN PO 04/02/17 13:30 05/02/17 13:29 Al Hydrox/Mg Hydrox/Simethicone (Maalox Max Susp) 15 ml Q4H PRN PO 04/02/17 13:30 05/02/17 13:29 Magnesium Hydroxide (Milk Of Magnesia Susp) 30 ml Q6H PRN PO 04/02/17 13:30 05/02/17 13:29 Polyethylene (Miralax Powder Packet) 17 gm DAILY PRN PO 04/02/17 13:30 05/02/17 13:29 Ondansetron HCl (Zofran Inj) 4 mg Q6H PRN IV 04/02/17 13:30 05/02/17 13:29 Acetaminophen (Tylenol Tab) 1,000 mg BID PO 04/02/17 20:00 05/02/17 19:59 04/06/17 08:23 1,000 MG Allopurinol (Zyloprim Tab) 100 mg QAM PO 04/03/17 08:00 05/03/17 07:59 04/06/17 08:24 100 MG Aspirin (Ecotrin Tab) 81 mg QAM PO 04/03/17 08:00 05/03/17 07:59 04/06/17 08:24 81 MG Bisacodyl (Dulcolax Supp) 10 mg UD PRN NM 04/02/17 14:15 05/02/17 14:14 Carvedilol (Coreg Tab) 9.375 mg BID PO 04/02/17 20:00 05/02/17 19:59 04/06/17 08:22 9.375 MG Fentanyl (Duragesic Patch) 50 mcg Q3D@0900 TD 04/02/17 15:15 04/16/17 15:14 04/05/17 10:18 50 MCG Ferrous Sulfate (Feosol Tab) 325 mg BID PO 04/02/17 20:00 05/02/17 19:59 04/06/17 08:24 325 MG Salmeterol Xinafoate/ Fluticasone (Advair Diskus 500/50 Inh) 1 puff BID INH 04/02/17 20:00 05/02/17 19:59 04/06/17 08:21 1 PUFF Furosemide (Lasix Tab) 60 mg QAM PO 04/03/17 08:00 05/03/17 07:59 04/05/17 08:54 60 MG Gabapentin (Neurontin Cap) 200 mg QAM PO 04/03/17 08:00 05/03/17 07:59 04/06/17 08:22 200 MG Gabapentin (Neurontin Tab) 600 mg HS PO 04/02/17 22:00 05/02/17 21:59 04/05/17 22:28 600 MG Guaifenesin (Robitussin Sugar Free Syrup) 200 mg Q6H PRN PO 04/02/17 14:15 05/02/17 14:14 Albuterol/ Ipratropium (Combivent Respimat Inh) 1 puffs Q6 INH 04/02/17 18:00 05/02/17 17:59 04/06/17 05:55 1 PUFFS Isosorbide Mononitrate (Imdur Ext Rel Tab) 60 mg QAM PO 04/03/17 08:00 05/03/17 07:59 04/06/17 08:23 60 MG Losartan Potassium (coZAAR TAB) 25 mg QAM PO 04/03/17 08:00 05/03/17 07:59 04/06/17 08:23 25 MG Potassium Chloride (Klor-Con M10) 20 meq QAM PO 04/03/17 08:00 05/03/17 07:59 04/06/17 08:22 20 MEQ Ranitidine HCl (zANTac TAB) 150 mg BID PO 04/02/17 20:00 05/02/17 19:59 04/06/17 08:24 150 MG Rivaroxaban (Xarelto Tab) 20 mg QDD PO 04/02/17 17:00 05/02/17 16:59 04/05/17 16:30 20 MG Sertraline HCl (Zoloft Tab) 200 mg QAM PO 04/03/17 08:00 05/03/17 07:59 04/06/17 08:24 200 MG Simvastatin (Zocor Tab) 40 mg QPM PO 04/02/17 21:00 05/02/17 20:59 04/05/17 22:28 40 MG Sodium Biphosphate/ Sodium Phosphate (Fleet Enema) 132 ml DAILY PRN NM 04/03/17 08:00 05/03/17 07:59 Topiramate (Topamax Tab) 100 mg BID PO 04/02/17 20:00 05/02/17 19:59 04/06/17 08:22 100 MG Artificial Tears (Artificial Tears) 2 drops QID PRN OP 04/02/17 14:45 05/02/17 14:44 Miscellaneous Information (Order Awaiting Action) 1 ea QS N/A 04/02/17 16:00 05/02/17 15:59 Miscellaneous (Fentanyl Patch Remove & Waste) 1 ea Q3D@0859 N/A 04/02/17 15:14 05/02/17 15:13 04/05/17 10:18 1 EA Miscellaneous Information (Check Fentanyl Patch Placement) 1 ea QS N/A 04/02/17 16:00 05/02/17 15:59 04/06/17 08:25 1 EA Ceftriaxone Sodium 1 gm/ Dextrose 50 ml @ 100 mls/hr Q24H IV 04/02/17 14:00 04/12/17 13:59 04/05/17 13:46 100 MLS/HR Vancomycin HCl (Consult) 1 ea UD PRN N/A 04/02/17 15:30 05/02/17 15:29 Albuterol/ Ipratropium (Duoneb) 3 ml Q4R PRN INH 04/02/17 16:00 05/02/17 15:59 Oxycodone HCl (Roxicodone Immediate Rel Tab) 20 mg Q4H PRN PO 04/02/17 16:00 04/16/17 15:59 04/04/17 21:40 20 MG Review of Systems Constitutional: + fever Eyes: No problem reported ENT: No problem reported Respiratory: No problem reported Cardiovascular: No problem reported Abdomen: No problem reported Musculoskeletal: No problem reported Genitourinary - Male: No problem reported Neurologic: No problem reported Psychiatric: No problem reported Endocrine: No problem reported Hematologic / Lymphatic: No problem reported Integumentary: + new/changing skin lesions Allergic / Immunologic: No problem reported Physical Exam Date Time Temp Pulse Resp B/P (MAP) Pulse Ox O2 Delivery O2 Flow Rate FiO2 1/2/18 07:22 36.9 70 20 131/88 (102) 99 Room Air 04/06/17 00:00 Room Air 04/05/17 23:29 36.5 73 18 122/80 (94) 95 Room Air 04/05/17 19:48 121/71 (88) 04/05/17 15:45 96 Room Air 04/05/17 15:32 36.7 67 20 120/76 (91) 96 Room Air General Appearance: WD/WN, no apparent distress, + pertinent finding ( Disheveled-appearing) Head: normocephalic, atraumatic Eyes: normal inspection, EOMI, sclerae normal ENT: normal ENT inspection, hearing grossly normal, pharynx normal Neck: supple, no adenopathy, thyroid normal, trachea midline Respiratory/Chest: chest non-tender, lungs clear, normal breath sounds, no respiratory distress Cardiovascular: no gallop, no murmur, + irregularly irregular Abdomen/GI: normal bowel sounds, non tender, soft, no organomegaly Back: normal inspection, no CVA tenderness Extremities/Musculoskelatal: no calf tenderness, + slow capillary refill, + pertinent finding (Left BKA) Neurologic/Psych: alert, normal reflexes Skin: normal color, no rash, + pertinent finding (Open wound right groin with surrounding erythema and seropurulent drainage) Lymphatic: no adenopathy Laboratory Results RUN DATE: 04/02/17 [facility] PAGE 1 RUN TIME: 828 Specimen Inquiry PATIENT: PARVEEN DAVIS LOC: [facility] U # : [id number] AGE/SX: 66/M ROOM: REG : 03/30/[address]: Fabiola Velasquez D.O. : 1950 BED: DIS : STATUS: DEP LUPILLO TLOC: SPEC #: [id number] LANDEN: 03/30/17 STATUS: COMP REQ #: [id number] RECD: 03/30/[address]: Fabiola Velasquez D.O. SOURCE: ABSCESS ENTR: 03/30/17 [facility] DR: Sohail Ignacio M.D. SPDESC: BRIELLE ORDERED: MARCO HERNANDEZ CUL/IFTIKHAR COMMENTS: Has Specimen Been Obtained/Collected? Y Procedure Result Verified Site GRAM STAIN Final 03/30/17-854 RESULT MANY POLYS FEW GRAM POSITIVE COCCI DEEP WOUND CULTURE Final 04/02/17-828 Organism 1 STAPHYLOCOCCUS AUREUS QUANITY FEW SENS SENSITIVITY TO FOLLOW Organism 2 PROTEUS MIRABILIS QUANITY FEW SENS SENSITIVITY TO FOLLOW SENSITIVITY RESULT INDICATES A METHICILLIN RESISTANT STAPH. AUREUS. PHONED TO TESFAYE SERNA ON 04/02/17 AT 0747 BY Leslie Nowak. Results were verbalized back to [facility]. RESULTS WERE ALSO CALLED TO [facility] SHELLY RAJAN ON 04/02/17 BY COLLINS. CONTINUED ON NEXT PAGE RUN DATE: 04/02/17 [facility] PAGE 2 RUN TIME: 828 Specimen Inquiry SPEC: [id number] PATIENT: PARVEEN DAVIS [id number] ( Continued) Procedure Result Verified Site DEEP WOUND CULTURE Final (continued) 04/02/17-828 [facility]ATO THOMPSON M.I.C. RX M.I.C. RX --------- ------ --------- ------ TRIMET/SULFA >2/38 R <=2/38 S AMPICILLIN <=8 S * OXACILLIN >2 R AMPICILLIN/SUL <=8/4 S CEFAZOLIN <=8 S CEFOXITIN <=8 S CEFOTAXIME <=2 S CEFTRIAXONE <=1 S CEFEPIME <=4 S CEFUROXIME <=4 S VANCOMYCIN 1 S GENTAMICIN <=4 S TOBRAMYCIN <=4 S ERYTHROMYCIN >4 R TETRACYCLINE >8 R AMIKACIN <=16 S CIPROFLOXACIN >2 R LEVOFLOXACIN >4 R CLINDAMYCIN >4 R ERTAPENEM <=1 S DAPTOMYCIN <=0.5 S PIP/TAZO <=16 S RIFAMPIN <=1 S 1. STAPHYLOCOCCUS AUREUS Target Route Dose RX AB Cost M.I.C. IQ ------ ----- ------ -- ------ -------- - ------ TRIMET/SULFA R >2/38 * OXACILLIN R * >2 VANCOMYCIN S 1 ERYTHROMYCIN R >4 TETRACYCLINE R >8 CLINDAMYCIN R >4 DAPTOMYCIN S <=0.5 RIFAMPIN S <=1 2. PROTEUS MIRABILIS Target Route Dose RX AB Cost M.I.C. IQ ------ ----- ------ -- ------ -------- - ------ TRIMET/SULFA S <=2/38 AMPICILLIN S <=8 AMPICILLIN/SUL S <=8/4 CEFAZOLIN S <=8 CEFOXITIN S <=8 CEFOTAXIME S <=2 CEFTRIAXONE S <=1 CONTINUED ON NEXT PAGE RUN DATE: 04/02/17 [facility] PAGE 3 RUN TIME: 0829 Specimen Inquiry SPEC: [id number] PATIENT: PARVEEN DAVIS [id number] ( Continued) Procedure Result Verified Site DEEP WOUND CULTURE Final (continued) 04/02/17-828 2. PROTEUS MIRABILIS (continued) Target Route Dose RX AB Cost M.I.C. IQ ------ ----- ------ -- ------ -------- - ------ CEFEPIME S <=4 CEFUROXIME S <=4 GENTAMICIN S <=4 TOBRAMYCIN S <=4 AMIKACIN S <=16 CIPROFLOXACIN R >2 LEVOFLOXACIN R >4 ERTAPENEM S <=1 PIP/TAZO S <=16 S = SENSITIVE I = INTERMEDIATE R = RESISTANT END OF REPORT Last 24 Hours Test 04/06/17 05:16 04/06/17 05:20 Vancomycin Level Trough 27.2 mcg/ml White Blood Count 8.00 K/uL Red Blood Count 3.85 M/uL Hemoglobin 12.1 g/dL Hematocrit 38.4 % Mean Corpuscular Volume 99.7 fL Mean Corpuscular Hemoglobin 31.4 pg Mean Corpuscular Hemoglobin Concent 31.5 g/dl Platelet Count 274 K/uL Mean Platelet Volume 9.8 fL Neutrophils (%) (Auto) 67.2 % Lymphocytes (%) (Auto) 22.3 % Monocytes (%) (Auto) 6.6 % Eosinophils (%) (Auto) 2.5 % Basophils (%) (Auto) 0.8 % Neutrophils # (Auto) 5.38 K/uL Lymphocytes # (Auto) 1.78 K/uL Monocytes # (Auto) 0.53 K/uL Eosinophils # (Auto) 0.20 K/uL Basophils # (Auto) 0.06 K/uL RDW Standard Deviation 50.5 fL RDW Coefficient of Variation 14.0 % Immature Granulocyte % (Auto) 0.6 % Immature Granulocyte # (Auto) 0.05 K/uL Sodium Level 143 mmol/L Potassium Level 3.4 mmol/L Chloride Level 110 mmol/L Carbon Dioxide Level 27 mmol/L Anion Gap 6.0 mmol/L Blood Urea Nitrogen 10 mg/dl Creatinine 0.94 mg/dl Est Creatinine Clear Calc Drug Dose 92.0 ml/min Estimated GFR () 96.2 Estimated GFR (Non- 83.0 BUN/Creatinine Ratio 10.8 Random Glucose 95 mg/dl Calcium Level 9.0 mg/dl Assessment & Plan 58-year-old male with severe peripheral arterial disease with persistent drainage from his right groin surgical site as well as evidence of cellulitis of the right groin. I am concerned about the possibility of underlying infection of his Dacron graft given persistent drainage in surgery. Current antibiotic therapy appropriate for now pending further culture results. Would recommend increasing ceftriaxone to 2 grams daily. Would also consider imaging the right groin to further investigate extent of infection. Would recommend having vascular surgery re-evaluate. Will discuss with all involved. Will follow.
--- NOTE | 2017-04-06 10:24 | Medical Consult ---
Consultation Note Date of Service Apr 06, 2017. Consultation Note Chief Complaint Infection R groin History of Present Illness The patient is a 66 year old male with multiple medical problems, including severe peripheral arterial disease in his bilateral LE, having undergone LLE BKA in past by another surgeon, as well as R profundaplasty and R comm iliac artery stent insertion by Dr Lobo in 11/2016. Pt apparently had opening of distal portion of incision "a few days ago," and pt noted a small amt of drainage. He denies any rest pain and does not ambulate to develop claudication. States has had ulcers for unknown period of time to RLE as well as L BKA site. Pt is poor historian and frequently uncooperative. At last office appt, R groin wound appeared healed, and R lower leg wounds were improving. Pt denies CUEVAS, fever, chills, chest pain, SOB, abd pain, N/V, other complaints. Allergies Coded Allergies: Neomycin (Verified Allergy, Intermediate, RED, SORE, 07/24/16) Bacitracin (Verified Allergy, Unknown, unknown, 07/24/16) Kiwi (Verified Allergy, Unknown, itchy, 07/24/16) Polymyxin B (Verified Allergy, Unknown, unknown, 07/24/16) Morphine (Verified Adverse Reaction, Intermediate, HALLUCINATION, CONFUSION,AGITATION, 07/24/16) Home Medications Scheduled Allopurinol (Zyloprim), 100 MG PO DAILY Amlodipine (Norvasc), 10 MG PO DAILY Artificial Tears (Artificial Tears), 1-2 DROPS OP QID Aspirin (Aspirin Ec), 81 MG PO DAILY Atorvastatin (Lipitor), 20 MG PO DAILY Carvedilol (Coreg), 6.25 MG PO BID Fentanyl (Duragesic), 50 MCG TD [id number] Ferrous Sulfate (Ferrous Sulfate), 325 MG PO BID Fluticasone Prop/Salmeterol (Advair Diskus 500/50 60 Dose), 1 PUFFS INH BID Furosemide (Lasix), 60 MG PO DAILY Gabapentin (Neurontin), 600 MG PO HS Gabapentin (Neurontin), 200 MG PO DAILY Ipratropium-Albuterol (Combivent Respimat), 1 PUFFS INH QID Isosorbide Mononitrate (Imdur Ext Rel), 60 MG PO QAM Losartan Potassium (Cozaar), 25 MG PO DAILY Potassium Chloride (Micro-K Ext Rel), 20 MEQ PO DAILY Ranitidine Hcl (Zantac), 150 MG PO BID Rivaroxaban (Xarelto), 20 MG PO QPM Rivaroxaban (Xarelto), 1 TAB PO DAILY Sertraline (Zoloft), 200 MG PO DAILY Sodium Phosphate/Biphosphate (Fleet Enema), 1 EA MO DAILY Sulfa/Trimethoprim (Bactrim Ds 800MG/160MG), 1 TAB PO BID Topiramate (Topamax), 100 MG PO BID [dulcolax supp ], RE day three per protoc Scheduled PRN Acetaminophen Tab (Tylenol), 325 MG PO Q6H PRN for Pain Albuterol (Ventolin), 2 PUFFS INH Q2H PRN for SOB/Wheezing Aluminum/Magnesium/Simeth (Maalox Max Susp), 30 ML PEG Q6H PRN for Indigestion Lorazepam (Ativan), 0.25 MG PO BID PRN for Anxiety/Insomnia Magnesium Hydroxide (Milk Of Magnesia), 30 ML PO for Constipation Miscellaneous Medications Ascorbic Acid (Vitamin C 500 mg) Guaifenesin (Robitussin) Multiple Vitamins W/ Minerals (Theragran-M) Oxycodone Oral Soln (Roxicodone Oral Soln), 100 PO Prune Juice (Prune Juice ), 8 OZ PO Problem List Medical Problems: (1) Anxiety (2) Atrial fibrillation (3) Atrial flutter (4) Benign hypertension (5) Carcinoma of prostate (6) Chronic congestive heart failure (7) Gastroesophageal reflux disease (8) History of - pulmonary embolus (9) Hyperlipidemia (10) Migraine (11) uti Surgical / Medical History Hx Cardiac Surgery: Yes (CABG - 3 vessel ) Hx Abdominal Surgery: Yes (Hernia Repair) Hx Cancer Surgery: Yes (prostate) Hx Thoracic Surgery: No Hx Orthopedic: Yes (Left BKA) Hx Urinary Tract Surgery: Yes (Prostate) Past Medical/Surgical History: COPD, Heart Disease, High Cholesterol Family History FHx: ischemic heart disease Social History Smoking Status: Current Every Day Smoker Hx Tobacco Use In Past Year?: Yes (cigarettes, 1 ppd) Hx Alcohol Use - Type & Amnt: No Hx Substance Use -Type & Amnt: No ROS: Vascular H&P v2 Review of Systems Constitutional: No chills, No diaphoresis, No fever, No malaise, No weakness, No weight gain, No weight loss, No sweats, No fatigue, No problem reported Respiratory: No cough, No cyanosis, No VLILEDA, No hemoptysis, No orthopnea, No PND , No short of breath, No sputum production, No stridor, No wheezing, No dyspnea , No problem reported Cardiovascular: No chest pain, No chest tightness, No chest pressure, No palpitations, No syncope, No diaphoresis, No edema, No intermittent claudication , No orthopnea, No cyanosis, No mumur, No lightheadedness, No paroxysmal nocturnal dyspnea, No problem reported Gastrointestinal: No abdominal pain, No constipation, No diarrhea, No nausea, No vomiting, No anorexia, No appetite changes, No belching, No flatulence, No food intolerance, No hematemesis, No hemorrhoids, No hematochezia, No stool changes, No heartburn, No indigestion, No dysphagia, No rectal bleeding, No problem reported Genitourinary - Male: No impotence, No penile discharge, No penile itching, No rash, No testicular pain, No testicular swelling, No hematuria, No difficulty urinating, No problem reported Musculoskeletal: + muscle pain, No back pain, No gout, No joint pain, No joint swelling, No muscle stiffness, No muscle weakness, No neck pain, No problem reported Neurologic: No dizziness, No weakness, No headache, No lethargy, No numbness, No paresthesia, No pre-existing deficit, No seizures, No tics, No tingling, No tremors, No vertigo, No memory loss, No LOC, No problem reported Psychiatric: No anxiety, No alcohol abuse, No auditory hallucinations, No depression, No drug abuse, No homicidal ideation, No mood changes, No suicidal ideation, No visual hallucinations, No problem reported Physical Ex: Vascular H&P v2 Physical Exam Constitutional: Level of Distress: NAD Ambulation: ambulating normally Psychiatric: Mental Status: active & alert, normal mood, normal affect Orientation: oriented except where noted, to time, to place, to person Memory: recent memory normal, remote memory normal Neck: supple Lungs: Auscultation: breath sounds normal Cardiovascular: Heart Auscultation: RRR Abdomen: Inspection & Palpation: soft, non-distended Musculoskeletal: normal, normal strength (5/5 throughout), normal tone Extremities: Upper Right: no cyanosis, no edema, no varicosities, no palpable cord, no clubbing, no ulcers, no mottling Upper Left: no cyanosis, no edema, no varicosities, no palpable cord, no clubbing, no ulcers, no mottling Lower Right:+ RLE edema, although improved from usual. + ulcerations. R groin distal incision with 0.5cm open area, no drainage noted or expressable. No fluctuance or erythema noted. Rest of incision well healed. Lower Left: LLE BKA with ulcer Neurologic: Cranial Nerves: grossly intact Sensation: grossly intact A&P: Vascular H&P v2 Assessment and Plan Imp: R groin wound infection Severe PAD Plan: Pt discussed with Dr Lobo, recommends CT scan to eval for deep fluid collection. No drainage or erythema or fluctuance or tenderness noted on exam today. Continue abx.
--- NOTE | 2017-04-06 12:10 | NUR ---
CWOCN: RECEIVED REQUEST FOR CONSULT, RE: SKIN CARE, NOT SPECIFIC. PATIENT WITH MULTIPLE AREAS OF BREAKDOWN. PATIENT ALLOWED THIS NURSE TO EVALUATE LEFT ISCHIAL AREA WOUND. FOUND OPEN WOUND, MOSTLY SLOUGH COVERED. THERE IS SUPERFICIAL, SMALLER OPEN AREA ON PERINEUM. BUTTOCKS HAS APPEARANCE OF REPEATED FRICTION, IS DRY. APPLIED ALOE VESTA #3. APPLIED AQUACEL AG AND OPTIFOAM TO ISCHIAL AREA PER [facility] LAST TREATMENT PLAN. PATIENT IS ACTUALLY BEING FOLLOWED BY [facility] WHO SUGGESTED SANTYL TO THIS WOUND. SANTYL NOT ON MEDICATION LIST UPON ADMISSION. PATIENT WITH LEFT STUMP WOUND AND RIGHT LOWER LEG WOUNDS WHICH WERE NOT SEEN BY THIS NURSE, "THEY WERE ALREADY CHANGED." RIGHT FOREARM WITH WHAT APPEARS TO BE OPTIFOAM DATED 04/04. ASKED IF I MAY EVALUATE THIS WOUND, PATIENT STARED AT THE DATE AND SAID IT WAS GOOD. IS ON ACCUMAX MATTRESS. WILL ORDER WAFFLE BOOT FOR RIGHT FOOT.
--- NOTE | 2017-04-06 13:24 | Pharmacy Progress Note ---
Pharmacy Abx Dose Short Note Date of Service Apr 06, 2017. Assessment & Plan Assessment 66 year old male receiving vancomycin/Rocephin for treatment of cellulitis with Proteus and MRSA (vancomycin MARANDA = 1) Day # 5 of antimicrobial therapy. Plan Vancomycin * Trough level of 27.2 mcg/mL is supratherapeutic. * Change to 1250 mg IV every 18 hours (~40% reduction in dose. Patient received 6 AM dose therefore hold for about 24 hours, 6 hours past expected next dose) then restart) * Goal trough level for MRSA cellulitis : 15 to 20 mcg/mL * Trough ordered for: 04/09/17 prior to 1200 dose Pharmacy will continue to follow and will adjust dose/frequency as necessary. Thank you.
--- NOTE | 2017-04-06 13:42 | DIAGNOSTIC IMAGING REPORT ---
PELVIS NO IV/ORAL CONT (CT) CLINICAL HISTORY: R groin infection pain. TECHNIQUE: Transaxial acquisition. Multi axial reformatted images. No contrast enhancement. COMPARISON STUDY: None FINDINGS: Focal right inguinal inflammatory process with a hyperdense 2.5 cm complex fluid collection/phlegmon. Apparent superficial wound. Mild surrounding cellulitis-type process. No evidence for extension to the osseous structures. Several reactive regional nodes. Deformity of the osseous structures consistent with old trauma. This concludes the pubic rings bilaterally. Bladder is midline. Mild fecal impaction. Note is made of an inflammatory process of the left posterior upper thigh region. This is rather large geographic extension with a hyperdense and or phlegmon is process measuring 8 x 5 cm. This is immediately posterior and inferior to the left inferior pubic ring level. No evidence for a bony destructive process or osteomyelitis based on CT criteria. Deformity pubic rings is again noted secondary to old trauma. IMPRESSION: 1. Focal inflammatory changes of the right inguinal region as well as posterior left thigh region. 2. This is most consistent with that of cellulitis with central areas of potential hematoma versus abscess formation within the right groin region measuring 2.5 cm. 3. Inflammatory process of the left posterior thigh and is located down most exclusively to the subcutaneous fat with potential linear extension to the posterior margin of the extreme left inferior pubic ring. 4. This has a hyperdense core and or phlegmon,_measuring 8 x 5 cm. 5. No well-defined evidence for osteomyelitis. Deformity of the pubic ring secondary to old trauma bilaterally. The above report was generated using voice recognition software. It may contain grammatical, syntax or spelling errors. Electronically signed by: Shaka Richardson M.D. 04/06/2017 1:41 PM Dictated Date/Time: 04/06/2017 1:30 PM
--- NOTE | 2017-04-06 13:54 | NUR ---
Case Management- Pt is a resident and bed hold at [facility], he can return there once medically stable.
--- NOTE | 2017-04-06 13:54 | DIAGNOSTIC IMAGING REPORT ---
CT RIGHT HIP NO CONTRAST CT DOSE: 734.78 mGy.cm CLINICAL HISTORY: Right hip pain. Right groin infection. TECHNIQUE: Helical images were acquired in transverse plane. No intravenous contrast was administered. A dose lowering technique was utilized adhering to the principles of ALARA. COMPARISON STUDY: None. FINDINGS: There are multiple surgical clips within the right hemipelvis. The bones are osteopenic. There is an old fracture the right inferior pubic ramus. No acute fractures are visualized. There are suspected bladder diverticula present. There is a 3 cm subcutaneous right inguinal fluid collection. This may represent an abscess or hematoma. There is infiltration of the overlying fat. There are mild osteoarthritic changes present within the right hip. No destructive lesions are visualized.. IMPRESSION: 1. Mild osteoarthritic changes involving the right hip. No acute fractures. No destructive lesions are visualized 2. 3 cm subcutaneous right inguinal fluid collection. This likely represents an abscess or hematoma. There is mild infiltration of the adjacent fat, and there are several nonpathologically enlarged adjacent lymph nodes. Electronically signed by: Jones Mckeon M.D. 04/06/2017 1:53 PM Dictated Date/Time: 04/06/2017 1:48 PM
[2017-04-06] MEDS: CEFTRIAXONE SOD INJ 1 GM in DEXTROSE 5% ADD-VANTAGE 50ML 50 ML IV SCH (15:13)
--- NOTE | 2017-04-06 15:26 | Progress Note ---
Progress Note Date of Service Apr 06, 2017. Progress Note CT reviewed. Appreciate ID input He may need 4 to 6 weeks of antibiotic therapy. If the collection still persists after the course of antibiotics or if the groin drainage worsens during the course of antibiotics, would consider removing the patch, but that may result in a significant risk of an AKA
[2017-04-06 15:47] VITALS: BP 99/58; PULSE 56; TEMP 36.7; O2SAT 96
[2017-04-06] MEDS ORDERED: CEFTRIAXONE SOD INJ 1 GM in DEXTROSE 5% ADD-VANTAGE 50ML 50 ML IV ONE (16:00)
--- NOTE | 2017-04-06 16:32 | NUR ---
A: Pt stated he wanted to go in to the bathroom to have a bowel movement. He refused for this nurse to help transfer him to the commode or this nurse to stay in the bathroom with him. This nurse explained to the patient his fall risk, but he proceeded to tell this nurse to get out of the bathroom.
[2017-04-06] MEDS: RIVAROXABAN 20 MG TAB PO SCH (16:54)
[2017-04-06] MEDS: SIMVASTATIN 40 MG TAB PO SCH (19:36)
[2017-04-06] MEDS: GABAPENTIN 600 MG TAB PO SCH (19:38)
--- NOTE | 2017-04-06 22:41 | NUR ---
as pt was getting ready for bed, he insisted that he wear adult diaper brought to him by family members. stated that he cannot get any sleep w/o wearing one. told rn that he was insisting on wearing one, and rn gave me the go ahead to help him put it on in order to avoid an argument
[2017-04-06 23:52] VITALS: BP 113/69; PULSE 83; TEMP 36.5; O2SAT 95
--- NOTE | 2017-04-07 00:20 | NUR ---
ID: Pt is alert and oriented X4. Pt has been more cooperative this evening. Took his evening meds, but refused his Tylenol. Full assessment completed see EMR. Pt still receiving IV antibiotics per MD order. IV in the Left AC is intact and patent. S/S involved with d/c planning. Pt plans to return to [facility]. Hourly rounding maintained. Will continue to monitor.
[2017-04-07] MEDS: CHECK FENTANYL PATCH PLACEMENT SCH ×4 (00:26→23:50)
[2017-04-07] MEDS ORDERED: VANCOMYCIN IV 1,250 MG in SODIUM CHLORIDE 0.9% 250ML 250 ML IV SCH (06:00)
--- NOTE | 2017-04-07 06:50 | Medical Student: [facility] ---
Med Student Progress Note Date of Service Apr 07, 2017. Subjective Pt evaluation today including: conversation w/ patient, physical exam, chart review, lab review Pain: no change in right LE and groin pain Voiding: no voiding problems 66 year old man from [facility] with right groin cellulitis and probable subq abscess near surgical site following profundoplasty and stent in November 2016. MRSA + cellulitis. Managed with vanco and ceftriaxone. No events overnight. Denies fever/chills, N/V/D. Continues to have mild intermittent epigastric pain for many years, unchanged. Denies chest pain. Describes pain in groin as unchanged. Overall he "feels much better." Review of Systems Constitutional: No fever, No chills Respiratory: No cough, No wheezing, No shortness of breath Cardiac: No chest pain Abdomen: No nausea, No vomiting, No diarrhea Male : No dysuria Neurologic: No weakness Psychiatric: No depression symptoms Skin: No rash All Other Systems: Reviewed and Negative Objective Vital Signs Date Time Temp Pulse Resp B/P (MAP) Pulse Ox O2 Delivery O2 Flow Rate FiO2 04/07/17 00:00 Room Air 04/06/17 23:52 36.5 83 20 113/69 (84) 95 Room Air 04/06/17 19:00 Room Air 04/06/17 16:00 Room Air 04/06/17 15:47 36.7 56 18 99/58 (72) 96 Room Air 04/06/17 08:00 Room Air 04/06/17 07:22 36.9 70 20 131/88 (102) 99 Room Air Physical Exam Eyes: bilateral eyes normal inspection ENT: + pertinent finding (hearing impaired) Neck: supple, no adenopathy Respiratory/Chest: chest non-tender, lungs clear, normal breath sounds Cardiovascular: + irregularly irregular Abdomen: normal bowel sounds, non tender, soft Extremities: + pertinent finding (left BKA) Neurologic/Psychiatric: alert, normal mood/affect, oriented x 3 Skin: + pertinent finding Comments: 1 cm open wound over right groin over surgical site with surrounding erythema and purulent discharge. Has not expanded from yesterday. Bandages of leg wounds. Sacral Ulcer bandaged. Laboratory Results Last 24 Hours Test 04/07/17 04:44 Assessment and Plan Assessment and Plan: 66 y/o male vasculopath with multiple medical problems presenting with cellulitis and likely abscess over right groin surgical site s/p surgery in November 2016. 1. Cellulitis -maintain current antibiotic regimen, vanco and ceftriaxone to cover MRSA -wound care to see patient -clean bandages and dressings daily -consider picc line or transitioning to PO MRSA coverage pending ID input. Dr. Sharfi from vascular surgery recommends considering 4-6 weeks antibiotics. If PO abx - consider trimethoprim-sulfa or linezolid. 2. Borderline low potassium / hypokalemia -Give potassium -consider checking magnesium levels if hypokalemia continues 3. Pressure ulcer -wound care following patient 4. Chronic AF, CAD s/p [place], [place] s/p AICD, HTN, HLD, sCHF -continue ASA, coreg, losartan, simvastatin, imdur, lasix, xarelto 5.Severe PAD, PVD - continue ASA and simvastatin 6. Stable COPD -continue home inhalers 7. Factor V Leiden mutation and DVT ppx - continue xarelto 8. GERD - continue ranitidine BID 9.Anxiety -continue sertraline 200mg daily 10. Discharge planning -[facility] Bed Available and patient is agreeable to going back, per social media editor note. Code Status: LEVEL I, FULL Continued [facility] stay due to: ambulation difficulties, multiple IV medications needed Discharge planning: correction facility
[2017-04-07 07:45] LABS: CREATININE 0.92 mg/dl (0.60-1.40)
[2017-04-07 07:46] VITALS: BP 119/77; PULSE 76; TEMP 36.8; O2SAT 93
[2017-04-07] MEDS ORDERED: POTASSIUM CHLORIDE 20 MEQ TABCR PO ONE (08:00)
[2017-04-07] MEDS: FUROSEMIDE 40 MG TAB PO SCH (08:00)
--- NOTE | 2017-04-07 08:42 | Family Medicine Progress Note ---
Progress Note Date of Service Apr 07, 2017. Subjective Pt evaluation today including: conversation w/ patient, physical exam, chart review, lab review, review of studies, review of inpatient medication list Pain: denies PO Intake: adequate Voiding: no voiding problems No acute events overnight. Patient denies pain at Right groin region. he denies fevers, chills, nausea/vomiting, abdominal pain, diarrhea. Constitutional: No fever, No chills, No weakness Respiratory: No shortness of breath Cardiovascular: No chest pain, No edema, No palpitations Abdomen: No pain, No nausea, No vomiting, No diarrhea Male : No dysuria, No urinary frequency Skin: No rash, No itch Medications Current Inpatient Medications Medications (Trade) Dose Ordered Sig/Emily Route Start Time Stop Time Status Last Admin Dose Admin Acetaminophen (Tylenol Tab) 650 mg Q4H PRN PO 04/02/17 13:30 05/02/17 13:29 Al Hydrox/Mg Hydrox/Simethicone (Maalox Max Susp) 15 ml Q4H PRN PO 04/02/17 13:30 05/02/17 13:29 Magnesium Hydroxide (Milk Of Magnesia Susp) 30 ml Q6H PRN PO 04/02/17 13:30 05/02/17 13:29 Polyethylene (Miralax Powder Packet) 17 gm DAILY PRN PO 04/02/17 13:30 05/02/17 13:29 Ondansetron HCl (Zofran Inj) 4 mg Q6H PRN IV 04/02/17 13:30 05/02/17 13:29 Acetaminophen (Tylenol Tab) 1,000 mg BID PO 04/02/17 20:00 05/02/17 19:59 04/06/17 08:23 1,000 MG Allopurinol (Zyloprim Tab) 100 mg QAM PO 04/03/17 08:00 05/03/17 07:59 04/06/17 08:24 100 MG Aspirin (Ecotrin Tab) 81 mg QAM PO 04/03/17 08:00 05/03/17 07:59 04/06/17 08:24 81 MG Bisacodyl (Dulcolax Supp) 10 mg UD PRN SD 04/02/17 14:15 05/02/17 14:14 Carvedilol (Coreg Tab) 9.375 mg BID PO 04/02/17 20:00 05/02/17 19:59 04/06/17 08:22 9.375 MG Fentanyl (Duragesic Patch) 50 mcg Q3D@0900 TD 04/02/17 15:15 04/16/17 15:14 04/05/17 10:18 50 MCG Ferrous Sulfate (Feosol Tab) 325 mg BID PO 04/02/17 20:00 05/02/17 19:59 04/06/17 19:32 325 MG Salmeterol Xinafoate/ Fluticasone (Advair Diskus 500/50 Inh) 1 puff BID INH 04/02/17 20:00 05/02/17 19:59 04/06/17 19:33 1 PUFF Furosemide (Lasix Tab) 60 mg QAM PO 04/03/17 08:00 05/03/17 07:59 04/05/17 08:54 60 MG Gabapentin (Neurontin Cap) 200 mg QAM PO 04/03/17 08:00 05/03/17 07:59 04/06/17 08:22 200 MG Gabapentin (Neurontin Tab) 600 mg HS PO 04/02/17 22:00 05/02/17 21:59 04/06/17 19:38 600 MG Guaifenesin (Robitussin Sugar Free Syrup) 200 mg Q6H PRN PO 04/02/17 14:15 05/02/17 14:14 Albuterol/ Ipratropium (Combivent Respimat Inh) 1 puffs Q6 INH 04/02/17 18:00 05/02/17 17:59 04/06/17 16:52 1 PUFFS Isosorbide Mononitrate (Imdur Ext Rel Tab) 60 mg QAM PO 04/03/17 08:00 05/03/17 07:59 04/06/17 08:23 60 MG Losartan Potassium (coZAAR TAB) 25 mg QAM PO 04/03/17 08:00 05/03/17 07:59 04/06/17 08:23 25 MG Potassium Chloride (Klor-Con M10) 20 meq QAM PO 04/03/17 08:00 05/03/17 07:59 04/06/17 08:22 20 MEQ Ranitidine HCl (zANTac TAB) 150 mg BID PO 04/02/17 20:00 05/02/17 19:59 04/06/17 19:36 150 MG Rivaroxaban (Xarelto Tab) 20 mg QDD PO 04/02/17 17:00 05/02/17 16:59 04/06/17 16:54 20 MG Sertraline HCl (Zoloft Tab) 200 mg QAM PO 04/03/17 08:00 05/03/17 07:59 04/06/17 08:24 200 MG Simvastatin (Zocor Tab) 40 mg QPM PO 04/02/17 21:00 05/02/17 20:59 04/06/17 19:36 40 MG Sodium Biphosphate/ Sodium Phosphate (Fleet Enema) 132 ml DAILY PRN SD 04/03/17 08:00 05/03/17 07:59 Topiramate (Topamax Tab) 100 mg BID PO 04/02/17 20:00 05/02/17 19:59 04/06/17 19:33 100 MG Artificial Tears (Artificial Tears) 2 drops QID PRN OP 04/02/17 14:45 05/02/17 14:44 Miscellaneous Information (Order Awaiting Action) 1 ea QS N/A 04/02/17 16:00 05/02/17 15:59 Miscellaneous (Fentanyl Patch Remove & Waste) 1 ea Q3D@0859 N/A 04/02/17 15:14 05/02/17 15:13 04/05/17 10:18 1 EA Miscellaneous Information (Check Fentanyl Patch Placement) 1 ea QS N/A 04/02/17 16:00 05/02/17 15:59 04/07/17 00:26 1 EA Vancomycin HCl (Consult) 1 ea UD PRN N/A 04/02/17 15:30 05/02/17 15:29 Albuterol/ Ipratropium (Duoneb) 3 ml Q4R PRN INH 04/02/17 16:00 05/02/17 15:59 Oxycodone HCl (Roxicodone Immediate Rel Tab) 20 mg Q4H PRN PO 04/02/17 16:00 04/16/17 15:59 04/04/17 21:40 20 MG Vancomycin HCl 1250 mg/Sodium Chloride 275 ml @ 125 mls/hr Q18H IV 04/07/17 06:00 04/11/17 23:59 04/07/17 05:31 125 MLS/HR Ceftriaxone Sodium 2000 mg/ Dextrose 70 ml @ 100 mls/hr Q24H IV 04/07/17 16:00 04/12/17 15:59 Objective Vital Signs Date Time Temp Pulse Resp B/P (MAP) Pulse Ox O2 Delivery O2 Flow Rate FiO2 04/07/17 07:46 36.8 76 18 119/77 (91) 93 Room Air 04/07/17 00:00 Room Air 04/06/17 23:52 36.5 83 20 113/69 (84) 95 Room Air 04/06/17 19:00 Room Air 04/06/17 16:00 Room Air 04/06/17 15:47 36.7 56 18 99/58 (72) 96 Room Air Physical Exam Notes: GENERAL: alert, no distress, EYE EXAM: normal conjunctiva, PERRL and EOM's grossly intact NECK: supple, non-tender LUNGS: Clear to auscultation. Normal chest wall mechanics HEART: no murmurs, S1 normal and S2 normal ABDOMEN: abdomen soft, non-tender, normo-active bowel sounds, no masses, no rebound or guarding. SKIN: sacral ulcer UPPER EXTREMITIES: upper extremities are grossly normal. LOWER EXTREMITIES: Left BKA, Right foot , bandage in place Rt groin, draining , erythema improved, non- tender NEURO EXAM: Normal sensorium, cranial nerves II-XII grossly intact, normal speech Laboratory Results Results Past 24 Hours Test 04/07/17 07:01 04/07/17 08:35 Range/Units Creatinine 0.92 0.60-1.40 mg/dl Est Creatinine Clear Calc Drug Dose 93.4 ml/min Estimated GFR () 98.7 Estimated GFR (Non- 85.2 Assessment and Plan 66 yo M w/ h/o Chronic systolic CHF, CAD, chronic troponin elevation Afib, COPD , Prostate cancer, Factor V Leiden, severe PAD s/p L BKA s/p iliac profundoplasty and stent, recurrent UTI GERD p/w R groin cellulitis. R groin cellulitis s/p R iliac profundoplasty and stent by Dr. Gomez in November 2016- growing MRSA and Proteus mirabilis from cultures on 03/30: - afebrile,, VSS, no reported groin pain - On IV Rocephin + Vancomycin - Blood Cx from 03/30- NGTD - Wound care - evaluated by Vascular, Decision made to maintain on abx and potentially remove Dacron patch if no improvement in 4-6 wks - F/u with ID on recommendation for abx therapy, route and duration - Sacral pressure ulcer: wound care Chronic a.fib, CAD s/p SD, h/o [place] w/ AICD, HTN, HLD, systolic CHF: - Continue Coreg 9.375 mg daily, ASA 81 mg daily, Xarelto 20 mg HS, Lasix 60 mg daily, Imdur 60 mg daily, Zocor 40 mg HS, Losartan 25 mg daily PAD, PVD: Continue ASA and Zocor Anxiety: Zoloft 200 mg daily COPD w/out exacerbation: Continue home inhalers Gout: Continue Allopurinol 100 mg daily Factor V Leiden mutation and h/o PE: Xarelto GERD, GI prophylaxis: Zantac 150 mg BID DVT prophylaxis: Xarelto Code Status: LEVEL I, FULL Dispo: Resident Bandy [facility], Plan to return on discharge PT/OT F/u with case management Continued [facility] stay due to: home environment unsafe for pt Discharge planning: shelter facility Resident Tracking Resident Involvement: Resident Care Provided Care Provided: Adult Hospital Medicine History Resident Physician Supervision Note: I was present with Dr. Sharif during the history and exam. I discussed the case with the resident and agree with the findings and plan as documented in the note. Any exceptions or clarifications are listed here. Pt reports stable discharge from groin injury and no CUEVAS, lightheadedness, fever , chills, sensory changes or new rashes. Reviewed need for PICC access 2/2 intermediate course of IV abx for right groin wound and pt is amenable, consent completed. General Appearance: WD/WN, no apparent distress Respiratory: chest non-tender, lungs clear, normal breath sounds, no respiratory distress Cardiovascular: normal peripheral pulses, regular rate, rhythm, no edema, no murmur Gastrointestinal: normal bowel sounds, non tender, soft, no organomegaly Skin Characteristics: other (right groin wound drainaing serous and purulent fluid with surrounding induration stable to mildly improved from previous without new erythema) Assessment/Plan 66 y/o male h/o chronic systolic CHF (EF 25-30%), VT s/p AICD, CAD (h/o SD), chronic AF, HTN, HLD, Factor V Leiden (h/o PE), PAD (s/p L BKA, R iliac profundoplasty and stent), chronic elevated torponin, gout, prostate CA, GERD, anxiety and recurrent UTI admitted from [facility] for R groin cellulitis R groin cellulitis w/ drainage s/p R iliac profundoplasty and stenting (Nov 2016 ) - Cx w/ MRSA and proteus - Wound care, infectious disease and vascular surgery consulted - per Dr. Gomez and Dr Kirk, extended course of abx preferred to intervention. - continue IV Rocephin and Vancomycin w/ improvement - PICC placement for outpatient course of same Sacral pressure ulcer - wound care consulted Chronic AF, CAD s/p SD, VT s/p AICD, HTN, HLD, sCHF - continue ASA, coreg, losartan, simvastatin, imdur, lasix, xarelto PAD, PVD - continue ASA and simvastatin COPD - stable, continue present regimen Factor V Leiden - continue xarelto GERD - continue ranitidine BID Anxiety - sertraline 200mg daily Code Status: LEVEL I, FULL
[2017-04-07] MEDS: LOSARTAN POTASSIUM 25 MG TAB PO SCH (08:55)
[2017-04-07] MEDS: ASPIRIN 81 MG ECTAB PO SCH (08:56)
[2017-04-07] MEDS: FERROUS SULFATE 325 MG TAB PO SCH ×2 (08:56→19:58)
[2017-04-07] MEDS: ISOSORBIDE MONONITRATE 60 MG TABCR PO SCH (08:56)
[2017-04-07] MEDS: POTASSIUM CHLORIDE 10 MEQ TABCR PO SCH (08:56)
[2017-04-07] MEDS: GABAPENTIN 100 MG CAP PO SCH (08:57)
[2017-04-07] MEDS: TOPIRAMATE 100 MG TAB PO SCH ×2 (08:57→19:59)
[2017-04-07] MEDS: ACETAMINOPHEN 500 MG TAB PO SCH ×2 (08:59→20:00)
[2017-04-07] MEDS: ALLOPURINOL 100 MG TAB PO SCH (08:59)
[2017-04-07] MEDS: RANITIDINE HCL 150 MG TAB PO SCH ×2 (08:59→20:00)
[2017-04-07] MEDS: SERTRALINE HCL 100 MG TAB PO SCH (08:59)
[2017-04-07] MEDS: IPRATROPIUM BROMIDE/ALBUTEROL respimat INH INH SCH ×5 (09:00→23:50)
[2017-04-07] MEDS: FLUTICASONE/SALMETEROL (ADVAIR) 500/50 INH 14 PUFF INH SCH ×2 (09:00→19:58)
[2017-04-07] MEDS: CARVEDILOL 3.125 MG TAB PO SCH ×2 (09:04→19:59)
[2017-04-07 09:39] LABS: BASO % 0.6 %; BASO ABS # 0.05 K/uL (0-0.2); EOS % 2.8 %; EOS ABS # 0.22 K/uL (0-0.5); HEMATOCRIT 37.1 % (42-52); HEMOGLOBIN 11.7 g/dL (14.0-18.0); IG# 0.04 K/uL (0.00-0.02); LYMPH % 22.8 %; LYMPH ABS # 1.82 K/uL (1.2-3.4); MEAN CELL VOLUME 100.3 fL (80-100); MEAN CORPUSCULAR HEMOGLOBIN 31.6 pg (25-34); MEAN PLATELET VOLUME 9.7 fL (7.4-10.4); MONO % 8.8 %; NEUT % 64.5 %; NEUT ABS # 5.15 K/uL (1.4-6.5); PLATELET COUNT 252 K/uL (130-400); RED CELL DISTRIBUTION WIDTH CV 14.1 % (11.5-14.5); WHITE BLOOD COUNT 7.98 K/uL (4.8-10.8)
[2017-04-07 09:41] LABS: MEAN CORPUSCULAR HGB CONC 31.5 g/dl (32-36)
--- NOTE | 2017-04-07 10:24 | Infectious Disease Progress Nt ---
Progress Note Date of Service Apr 07, 2017. Subjective Pt evaluation today including: conversation w/ patient, physical exam, chart review, lab review, review of studies, conversation w/ internal controls consultant, review of inpatient medication list Patient offering no new complaints today. No pain in right groin. No fever. CT scan of the groin, read by me, shows presence of small collection. Vascular surgery consultation noted, no intervention planned at present time. All Other Systems: Reviewed and Negative Medications Current Inpatient Medications Medications (Trade) Dose Ordered Sig/Emily Route Start Time Stop Time Status Last Admin Dose Admin Acetaminophen (Tylenol Tab) 650 mg Q4H PRN PO 04/02/17 13:30 05/02/17 13:29 Al Hydrox/Mg Hydrox/Simethicone (Maalox Max Susp) 15 ml Q4H PRN PO 04/02/17 13:30 05/02/17 13:29 Magnesium Hydroxide (Milk Of Magnesia Susp) 30 ml Q6H PRN PO 04/02/17 13:30 05/02/17 13:29 Polyethylene (Miralax Powder Packet) 17 gm DAILY PRN PO 04/02/17 13:30 05/02/17 13:29 Ondansetron HCl (Zofran Inj) 4 mg Q6H PRN IV 04/02/17 13:30 05/02/17 13:29 Acetaminophen (Tylenol Tab) 1,000 mg BID PO 04/02/17 20:00 05/02/17 19:59 04/07/17 08:59 1,000 MG Allopurinol (Zyloprim Tab) 100 mg QAM PO 04/03/17 08:00 05/03/17 07:59 04/07/17 08:59 100 MG Aspirin (Ecotrin Tab) 81 mg QAM PO 04/03/17 08:00 05/03/17 07:59 04/07/17 08:56 81 MG Bisacodyl (Dulcolax Supp) 10 mg UD PRN IN 04/02/17 14:15 05/02/17 14:14 Carvedilol (Coreg Tab) 9.375 mg BID PO 04/02/17 20:00 05/02/17 19:59 04/07/17 09:04 9.375 MG Fentanyl (Duragesic Patch) 50 mcg Q3D@0900 TD 04/02/17 15:15 04/16/17 15:14 04/05/17 10:18 50 MCG Ferrous Sulfate (Feosol Tab) 325 mg BID PO 04/02/17 20:00 05/02/17 19:59 04/07/17 08:56 325 MG Salmeterol Xinafoate/ Fluticasone (Advair Diskus 500/50 Inh) 1 puff BID INH 04/02/17 20:00 05/02/17 19:59 04/07/17 09:00 1 PUFF Furosemide (Lasix Tab) 60 mg QAM PO 04/03/17 08:00 05/03/17 07:59 04/05/17 08:54 60 MG Gabapentin (Neurontin Cap) 200 mg QAM PO 04/03/17 08:00 05/03/17 07:59 04/07/17 08:57 200 MG Gabapentin (Neurontin Tab) 600 mg HS PO 04/02/17 22:00 05/02/17 21:59 04/06/17 19:38 600 MG Guaifenesin (Robitussin Sugar Free Syrup) 200 mg Q6H PRN PO 04/02/17 14:15 05/02/17 14:14 Albuterol/ Ipratropium (Combivent Respimat Inh) 1 puffs Q6 INH 04/02/17 18:00 05/02/17 17:59 04/07/17 09:00 1 PUFFS Isosorbide Mononitrate (Imdur Ext Rel Tab) 60 mg QAM PO 04/03/17 08:00 05/03/17 07:59 04/07/17 08:56 60 MG Losartan Potassium (coZAAR TAB) 25 mg QAM PO 04/03/17 08:00 05/03/17 07:59 04/07/17 08:55 25 MG Potassium Chloride (Klor-Con M10) 20 meq QAM PO 04/03/17 08:00 05/03/17 07:59 04/07/17 08:56 20 MEQ Ranitidine HCl (zANTac TAB) 150 mg BID PO 04/02/17 20:00 05/02/17 19:59 04/07/17 08:59 150 MG Rivaroxaban (Xarelto Tab) 20 mg QDD PO 04/02/17 17:00 05/02/17 16:59 04/06/17 16:54 20 MG Sertraline HCl (Zoloft Tab) 200 mg QAM PO 04/03/17 08:00 05/03/17 07:59 04/07/17 08:59 200 MG Simvastatin (Zocor Tab) 40 mg QPM PO 04/02/17 21:00 05/02/17 20:59 04/06/17 19:36 40 MG Sodium Biphosphate/ Sodium Phosphate (Fleet Enema) 132 ml DAILY PRN IN 04/03/17 08:00 05/03/17 07:59 Topiramate (Topamax Tab) 100 mg BID PO 04/02/17 20:00 05/02/17 19:59 04/07/17 08:57 100 MG Artificial Tears (Artificial Tears) 2 drops QID PRN OP 04/02/17 14:45 05/02/17 14:44 Miscellaneous Information (Order Awaiting Action) 1 ea QS N/A 04/02/17 16:00 05/02/17 15:59 Miscellaneous (Fentanyl Patch Remove & Waste) 1 ea Q3D@0859 N/A 04/02/17 15:14 05/02/17 15:13 04/05/17 10:18 1 EA Miscellaneous Information (Check Fentanyl Patch Placement) 1 ea QS N/A 04/02/17 16:00 05/02/17 15:59 04/07/17 08:00 1 EA Vancomycin HCl (Consult) 1 ea UD PRN N/A 04/02/17 15:30 05/02/17 15:29 Albuterol/ Ipratropium (Duoneb) 3 ml Q4R PRN INH 04/02/17 16:00 05/02/17 15:59 Oxycodone HCl (Roxicodone Immediate Rel Tab) 20 mg Q4H PRN PO 04/02/17 16:00 04/16/17 15:59 04/04/17 21:40 20 MG Vancomycin HCl 1250 mg/Sodium Chloride 275 ml @ 125 mls/hr Q18H IV 04/07/17 06:00 04/11/17 23:59 04/07/17 05:31 125 MLS/HR Ceftriaxone Sodium 2000 mg/ Dextrose 70 ml @ 100 mls/hr Q24H IV 04/07/17 16:00 04/12/17 15:59 Objective Vital Signs Date Time Temp Pulse Resp B/P (MAP) Pulse Ox O2 Delivery O2 Flow Rate FiO2 04/07/17 08:00 Room Air 04/07/17 07:46 36.8 76 18 119/77 (91) 93 Room Air 04/07/17 00:00 Room Air 04/06/17 23:52 36.5 83 20 113/69 (84) 95 Room Air 04/06/17 19:00 Room Air 04/06/17 16:00 Room Air 04/06/17 15:47 36.7 56 18 99/58 (72) 96 Room Air Physical Exam General Appearance: WD/WN, no apparent distress Eyes: normal inspection, sclerae normal ENT: normal ENT inspection, pharynx normal Neck: supple, no adenopathy, trachea midline Respiratory/Chest: chest non-tender, lungs clear, normal breath sounds, no respiratory distress Cardiovascular: regular rate, rhythm, no gallop, no murmur Abdomen: normal bowel sounds, non tender, soft, no organomegaly Extremities: non-tender, + slow capillary refill, + pertinent finding (Left BKA ) Neurologic/Psychiatric: alert, oriented x 3 Skin: normal color, no rash, + pertinent finding (Improved erythema right groin , still with drainage) Lymphatic: no adenopathy Laboratory Results Last 24 Hours Test 04/07/17 06:58 04/07/17 07:01 White Blood Count 7.98 K/uL Red Blood Count 3.70 M/uL Hemoglobin 11.7 g/dL Hematocrit 37.1 % Mean Corpuscular Volume 100.3 fL Mean Corpuscular Hemoglobin 31.6 pg Mean Corpuscular Hemoglobin Concent 31.5 g/dl Platelet Count 252 K/uL Mean Platelet Volume 9.7 fL Neutrophils (%) (Auto) 64.5 % Lymphocytes (%) (Auto) 22.8 % Monocytes (%) (Auto) 8.8 % Eosinophils (%) (Auto) 2.8 % Basophils (%) (Auto) 0.6 % Neutrophils # (Auto) 5.15 K/uL Lymphocytes # (Auto) 1.82 K/uL Monocytes # (Auto) 0.70 K/uL Eosinophils # (Auto) 0.22 K/uL Basophils # (Auto) 0.05 K/uL RDW Standard Deviation 51.0 fL RDW Coefficient of Variation 14.1 % Immature Granulocyte % (Auto) 0.5 % Immature Granulocyte # (Auto) 0.04 K/uL Creatinine 0.92 mg/dl Est Creatinine Clear Calc Drug Dose 93.4 ml/min Estimated GFR () 98.7 Estimated GFR (Non- 85.2 Assessment and Plan 58-year-old male with severe peripheral arterial disease with persistent drainage from his right groin surgical site as well as evidence of cellulitis of the right groin. Previous cultures positive for MRSA and Proteus. Has small probable abscess on CT scan, vascular surgery has seen patient and not recommending surgical intervention at present but to continue antibiotic therapy. I would continue patient on IV vancomycin and ceftriaxone, likely will need at least 2-4 weeks of therapy. Will discuss. Will follow.
--- NOTE | 2017-04-07 12:09 | Progress Note ---
Progress Note Date of Service Apr 07, 2017. Progress Note Pt also seen by Dr Gomez today. Agree with ID recommendations for 4 wks of abx tx. Will obtain new CT scan and see in office at that time. Advise to keep dry dressing to R groin open area in meantime with daily changes. OK for d /c from vascular standpoint. Thank you for allowing us to participate in the care of this pt.
[2017-04-07 15:12] VITALS: BP 111/73; PULSE 68; TEMP 36.6; O2SAT 97
[2017-04-07] MEDS ORDERED: CEFTRIAXONE SOD INJ 2,000 MG in DEXTROSE 5% 50ML 50 ML IV SCH (16:00)
--- NOTE | 2017-04-07 16:13 | DIAGNOSTIC IMAGING REPORT ---
CHEST ONE VIEW PORTABLE CLINICAL HISTORY: 66 years-old Male presenting with right picc tip placement. TECHNIQUE: Portable upright AP view of the chest was obtained. COMPARISON: 03/30/2017. FINDINGS: Right upper extremity PICC terminates in the right internal jugular vein oriented superiorly. Left subclavian implanted cardiac defibrillator with lead to the right ventricular apex. Median sternotomy wires and mediastinal surgical clips noted. Atherosclerosis of aortic arch. Cardiac silhouette moderately enlarged as on prior exam. Prominence of pulmonary vasculature. Minimal bibasilar opacities and mildly low lung volumes. Trace left pleural effusion suggested. No pneumothorax. Surgical clips noted in the right axilla. Osseous structures normal. Upper abdomen normal. IMPRESSION: 1. The tip of the right upper extremity PICC terminates inappropriately in the right internal jugular vein oriented superiorly. Repositioning recommended. 2. Cardiomegaly with volume overload. No emily pulmonary edema. 3. Bibasilar atelectasis and trace left pleural effusion. The report will be called/faxed according to standard departmental protocol. Electronically signed by: Tariq Kunz M.D. 04/07/2017 4:12 PM Dictated Date/Time: 04/07/2017 4:10 PM
--- NOTE | 2017-04-07 16:23 | NUR ---
Qliq inquirary sent to Calvin Sharif ordering physcian concerning right PICC tip placement in right jugular vein per radiology. Patient does not want re-adjustment prior to provider discussion. Patient states "not a fan of x-ray and does not want further x-rays (aware of need for radiology confirmation of tip due to at fib and pacemaker). Want to take antibiotics by pill". PICC nurse Mare Arenas RN and this nurse had discussions with patient. Patient was unwilling to position look to right to allow easier and more efficient PICC tip placement. Dr Sharif also paged by primary nurse for provider intervention.
--- NOTE | 2017-04-07 16:30 | NUR ---
Dr Sharif present to discuss PICC with patient.
[2017-04-07] MEDS: RIVAROXABAN 20 MG TAB PO SCH (17:39)
--- NOTE | 2017-04-07 17:47 | NUR ---
Pt was verbally abusive to me when the body shop technician came to do his repeat xray. I explained to him that this is what the Dr spoke with him about a short time ago and that he was agreeable. Pt then did agree but remained verbally abusive. He then stated to the tech that it was a hippa violation when she let me look at the xray on her machine. She explained that it was ordered by the PICC team and that it was medically necessary in order to check tip placement. Pt continued to be abrasive and argumentative. I did explain that the line is now going down in the correct direction and that I would be back to let him know and finish up the dressing after I had a formal read on his xray. He told me to "get out and that if I knew how to do my job he would be a lot better off" and "thanks for the warning on coming back". Will monitor.
--- NOTE | 2017-04-07 17:49 | DIAGNOSTIC IMAGING REPORT ---
CHEST ONE VIEW PORTABLE CLINICAL HISTORY: 66 years-old Male presenting with right PICC tip placement. TECHNIQUE: Portable upright AP view of the chest was obtained. COMPARISON: 04/07/2017 at 3:53 PM. FINDINGS: The right upper extremity PICC now terminates in the lower SVC. Left subclavian implanted cardiac defibrillator with lead to the right ventricular apex from a median sternotomy wires, mediastinal surgical clips, and right axillary surgical clips unchanged. Atherosclerosis of aortic arch. Enlargement of the cardiac silhouette unchanged. Elevation of the left hemidiaphragm with left basilar opacity. Improved aeration of the right lung. Slight decreased prominence of pulmonary vasculature. No new focal infiltrate. Trace left pleural effusion may be present. No pneumothorax. IMPRESSION: 1. The right upper extremity PICC now terminates appropriately in the lower SVC. 2. Left basilar atelectasis. 3. Cardiomegaly with decrease evidence of volume overload, which may be due to improved aeration. Electronically signed by: Tariq Kunz M.D. 04/07/2017 5:48 PM Dictated Date/Time: 04/07/2017 5:46 PM
[2017-04-07] MEDS: GABAPENTIN 600 MG TAB PO SCH (19:58)
[2017-04-07] MEDS: SIMVASTATIN 40 MG TAB PO SCH (19:58)
[2017-04-07] MEDS: OXYCODONE HCL IR 5 MG TAB (IMMEDIATE RELEASE) PO PRN (22:39)
[2017-04-07 23:57] VITALS: BP 125/85; PULSE 78; TEMP 36.6; O2SAT 96
[2017-04-08] MEDS ORDERED: VANCOMYCIN TROUGH ONE (05:30)
[2017-04-08] MEDS ORDERED: VANCOMYCIN IV 1,750 MG in SODIUM CHLORIDE 0.9% 500ML 500 ML IV SCH (06:00)
[2017-04-08] MEDS: IPRATROPIUM BROMIDE/ALBUTEROL respimat INH INH SCH ×2 (06:09→11:45)
[2017-04-08] MEDS: OXYCODONE HCL IR 5 MG TAB (IMMEDIATE RELEASE) PO PRN (06:09)
[2017-04-08 07:42] VITALS: BP 143/84; PULSE 68; TEMP 36.6; O2SAT 94
[2017-04-08] MEDS: FUROSEMIDE 40 MG TAB PO SCH (08:00)
[2017-04-08] MEDS: POTASSIUM CHLORIDE 10 MEQ TABCR PO SCH (08:00)
[2017-04-08] MEDS: FLUTICASONE/SALMETEROL (ADVAIR) 500/50 INH 14 PUFF INH SCH (08:02)
[2017-04-08] MEDS: CARVEDILOL 3.125 MG TAB PO SCH (08:03)
[2017-04-08] MEDS: ISOSORBIDE MONONITRATE 60 MG TABCR PO SCH (08:05)
[2017-04-08] MEDS: FERROUS SULFATE 325 MG TAB PO SCH (08:05)
[2017-04-08] MEDS: ASPIRIN 81 MG ECTAB PO SCH (08:05)
[2017-04-08] MEDS: LOSARTAN POTASSIUM 25 MG TAB PO SCH (08:05)
[2017-04-08] MEDS: GABAPENTIN 100 MG CAP PO SCH (08:07)
[2017-04-08] MEDS: TOPIRAMATE 100 MG TAB PO SCH (08:09)
[2017-04-08] MEDS: SERTRALINE HCL 100 MG TAB PO SCH (08:10)
[2017-04-08] MEDS: ALLOPURINOL 100 MG TAB PO SCH (08:10)
[2017-04-08] MEDS: FENTANYL PATCH REMOVE & WASTE SCH (08:10)
[2017-04-08] MEDS: ACETAMINOPHEN 500 MG TAB PO SCH (08:10)
[2017-04-08] MEDS: RANITIDINE HCL 150 MG TAB PO SCH (08:10)
--- NOTE | 2017-04-08 08:10 | NUR ---
Case Management: Received notification from that pt. is ready for d/c. Spoke with Merced at [facility] who states that they will pick pt. up between 1 & 130pm. Also made Merced aware that pt. will be returning on IV Vanco and IV Ceftriaxone. Case management to follow. Addendum: 04/08/17 at 1235 by Lary Ochoa SERV Made pt. aware of picker / packer time as well as left message for pt. daughter of plan.
[2017-04-08] MEDS: FENTANYL 50 MCG/HR TDSY TD SCH (08:17)
[2017-04-08] MEDS: CHECK FENTANYL PATCH PLACEMENT SCH (08:18)
--- NOTE | 2017-04-08 08:29 | Pharmacy Progress Note ---
Pharmacy Abx Dose Short Note Date of Service Apr 08, 2017. Assessment & Plan Assessment 66 year old male receiving Vancomycin/Rocephin for treatment of cellulitis with Proteus and MRSA (vancomycin MARANDA = 1) Day # 7 of antimicrobial therapy. Plan Vancomycin * Trough level of 16.2 mcg/mL is therapeutic. * Originally we had patient dosed on Q12h regimen which gave supratherapeutic troughs X 2 - based on that data, dose was going to be empirically decreased to 1250 mg IV every 18 hours; however, pt to be discharged home on Vancomycin/ Rocephin combo. With that in mind we decided to change regimen to Q24h with higher dose as this would be more feasible for patient when discharged. * Based on today's trough it appears the Q24h will be appropriate. * Increase dose to 1750 mg IV every 24 hours versus 1250 mg. * Goal trough level for MRSA cellulitis: 15 to 20 mcg/mL. * Re-check trough level 04/10/16 @ 0530 prior to the 0600 dose to ensure this dose is appropriate for discharge. If patient discharged prior to next level, recommend 1750 mg IV every 24 hours dosed @ 0600 in the AM - recheck trough 04/10 or 04/11 Pharmacy will continue to follow and will adjust dose/frequency as necessary. Thank you.
--- NOTE | 2017-04-08 12:27 | Discharge Instructions ---
Discharge Instructions Date of Service Apr 08, 2017. Admission Reason for Admission: R Groin Cellulitis With Mrsa Discharge Discharge Diagnosis / Problem: Right Groin Cellulitis Discharge Goals Goal(s): Decrease discomfort, Improve function, Increase independence, Improve disease control, Improve nutritional status, Learn about illness, Diagnostic testing, Therapeutic intervention, Screening, Prevent Disease Progression, Specific goals Activity Recommendations Activity Level: Assistance Required . Additional Information Patient informed of condition: No Advance Directives: No DNR: No Level of Care: Skilled Communicable Disease: No (MRSA swab positive) Prognosis: Stable Rincon Catheter: No Instructions / Follow-Up Instructions / Follow-Up 66 yo M w/ h/o Chronic systolic CHF, CAD, chronic troponin elevation Afib, COPD , Prostate cancer, Factor V Leiden, severe PAD s/p L BKA s/p iliac profundoplasty and stent, recurrent UTI GERD p/w R groin cellulitis MRSA swab positive. Rt groin cellulitis s/p R iliac profundoplasty and stent by Dr. Gomez in November 2016- growing MRSA and Proteus mirabilis from cultures on 03/30: - afebrile,, VSS, no reported groin pain - MRSA positive wound swab - On IV Rocephin + Vancomycin - Blood Cx from 03/30- NGTD - Wound care - evaluated by Vascular, Decision made to maintain on abx and potentially remove Dacron patch if no improvement in 4-6 wks - Will need F/u appt with ID ( Dr. Kirk) in Wound care clinic on Discharge in 1- 2 wks - WIll need follow up With Vascular Surgery ( Dr. Gomez) in 1-2 wks - Sacral pressure ulcer: wound care Chronic a.fib, CAD s/p VT, h/o VT w/ AICD, HTN, HLD, systolic CHF: - Continue Coreg 9.375 mg daily, ASA 81 mg daily, Xarelto 20 mg HS, Lasix 60 mg daily, Imdur 60 mg daily, Zocor 40 mg HS, Losartan 25 mg daily PAD, PVD: Continue ASA and Zocor Anxiety: Zoloft 200 mg daily COPD w/out exacerbation: Continue home inhalers Gout: Continue Allopurinol 100 mg daily Factor V Leiden mutation and h/o PE: Xarelto GERD, GI prophylaxis: Zantac 150 mg BID DVT prophylaxis: Xarelto Code Status: LEVEL I, FULL Dispo: Discharge to [facility] Current Hospital Diet Patient's current hospital diet: AHA Diet (Heart Healthy) Discharge Diet Recommended Diet: AHA Diet (Heart Healthy) Procedures Procedures Performed: CHEST ONE VIEW PORTABLE CLINICAL HISTORY: 66 years-old Male presenting with right PICC tip placement. TECHNIQUE: Portable upright AP view of the chest was obtained. COMPARISON: 04/07/2017 at 3:53 PM. FINDINGS: The right upper extremity PICC now terminates in the lower SVC. Left subclavian implanted cardiac defibrillator with lead to the right ventricular apex from a median sternotomy wires, mediastinal surgical clips, and right axillary surgical clips unchanged. Atherosclerosis of aortic arch. Enlargement of the cardiac silhouette unchanged. Elevation of the left hemidiaphragm with left basilar opacity. Improved aeration of the right lung. Slight decreased prominence of pulmonary vasculature. No new focal infiltrate. Trace left pleural effusion may be present. No pneumothorax. IMPRESSION: 1. The right upper extremity PICC now terminates appropriately in the lower SVC. 2. Left basilar atelectasis. 3. Cardiomegaly with decrease evidence of volume overload, which may be due to CHEST ONE VIEW PORTABLE CLINICAL HISTORY: 66 years-old Male presenting with right picc tip placement. TECHNIQUE: Portable upright AP view of the chest was obtained. COMPARISON: 03/30/2017. FINDINGS: Right upper extremity PICC terminates in the right internal jugular vein oriented superiorly. Left subclavian implanted cardiac defibrillator with lead to the right ventricular apex. Median sternotomy wires and mediastinal surgical clips noted. Atherosclerosis of aortic arch. Cardiac silhouette moderately enlarged as on prior exam. Prominence of pulmonary vasculature. Minimal bibasilar opacities and mildly low lung volumes. Trace left pleural effusion suggested. No pneumothorax. Surgical clips noted in the right axilla. Osseous structures normal. Upper abdomen normal. IMPRESSION: 1. The tip of the right upper extremity PICC terminates inappropriately in the right internal jugular vein oriented superiorly. Repositioning recommended. 2. Cardiomegaly with volume overload. No emily pulmonary edema. 3. Bibasilar atelectasis and trace left pleural effusion. The report will be called/faxed according to standard departmental protocol. CT RIGHT HIP NO CONTRAST CT DOSE: 734.78 mGy.cm CLINICAL HISTORY: Right hip pain. Right groin infection. TECHNIQUE: Helical images were acquired in transverse plane. No intravenous contrast was administered. A dose lowering technique was utilized adhering to the principles of ALARA. COMPARISON STUDY: None. FINDINGS: There are multiple surgical clips within the right hemipelvis. The bones are osteopenic. There is an old fracture the right inferior pubic ramus. No acute fractures are visualized. There are suspected bladder diverticula present. There is a 3 cm subcutaneous right inguinal fluid collection. This may represent an abscess or hematoma. There is infiltration of the overlying fat. PELVIS NO IV/ORAL CONT (CT) CLINICAL HISTORY: R groin infection pain. TECHNIQUE: Transaxial acquisition. Multi axial reformatted images. No contrast enhancement. COMPARISON STUDY: None FINDINGS: Focal right inguinal inflammatory process with a hyperdense 2.5 cm complex fluid collection/phlegmon. Apparent superficial wound. Mild surrounding cellulitis-type process. No evidence for extension to the osseous structures. Several reactive regional nodes. Deformity of the osseous structures consistent with old trauma. This concludes the pubic rings bilaterally. Bladder is midline. Mild fecal impaction. Note is made of an inflammatory process of the left posterior upper thigh region. This is rather large geographic extension with a hyperdense and or phlegmon is process measuring 8 x 5 cm. This is immediately posterior and inferior to the left inferior pubic ring level. No evidence for a bony destructive process or osteomyelitis based on CT criteria. Deformity pubic rings is again noted secondary to old trauma. IMPRESSION: 1. Focal inflammatory changes of the right inguinal region as well as posterior left thigh region. 2. This is most consistent with that of cellulitis with central areas of potential hematoma versus abscess formation within the right groin region measuring 2.5 cm. 3. Inflammatory process of the left posterior thigh and is located down most exclusively to the subcutaneous fat with potential linear extension to the posterior margin of the extreme left inferior pubic ring. 4. This has a hyperdense core and or phlegmon,_measuring 8 x 5 cm. 5. No well-defined evidence for osteomyelitis. Deformity of the pubic ring secondary to old trauma bilaterally. Pending Studies Studies pending at discharge: no Physician Orders On Transfer Special Precautions: PICC Line in place Dressing Changes: Wound Assessment Label * Left Ischium/Ischial Tuberosty * Present on Admission Yes * Wound Type Pressure Ulcer * Stage Unstageable * Length 4.5 cm * Width 3.5 cm * Eschar None * % Eschar (Black) None * % Slough (Yellow) 76-100% * % Granulated (Red) None * Structure Exposed None * Wound Base Color Yellow * Impairment Edges [place] * Rachel-impairment Normal * Dressing Status Applied * Dressing Type Hydrofiber With Silver Adhesive Foam * Drainage Description Serous * Drainage Amount +4 - Large= 75% Saturated * Drainage Odor 0 - None * Irrigant Solution Type Saline (NSS) * Progress Of Wound No Change IV Therapy: IV Vancomycin 1750 mg IV q24h x 23 days IV Ceftriaxone 2 g q24h x 23 days Should be given via PICC line Additional Orders: recommend repeat BMP x1 while on IV Vancomycin, Ceftriaxone Vancomycin troughs per protocol Laboratory Results Lipid Panel Test 03/23/17 05:10 Range/Units Triglycerides Level 122 0-150 mg/dl Cholesterol Level 123 0-200 mg/dl HDL Cholesterol 26 mg/dl Cholesterol/HDL Ratio 4.7 LDL Cholesterol, Calculated 73 mg/dl Medical Emergencies . Who to Call and When: Medical Emergencies: If at any time you feel your situation is an emergency, please call 911 immediately. . Non-Emergent Contact Non-Emergency issues call your: Primary Care Provider (Jeanine Otto), Surgeon ( Dr. Gomez), Specialist (Infectious Disease (Dr. Kirk)) Call Non-Emergent contact if: you have a fever, your pain is not controlled, your pain is worsening, your pain is unusual for you, your pain is concerning you, wound has increased drainage, wound has increased redness, wound has increased pain, you have any medication questions . . "Provider Documentation" section prepared by Calvin Sharif. . Core Measure Problem Core Measures: None
[2017-04-08 12:32] VITALS: BP 143/84; PULSE 68; TEMP 36.6; O2SAT 94
--- NOTE | 2017-04-08 12:45 | NUR ---
A: DISCHARGE COMPLETED. REPORT CALLED TO OSMAR SIMS AT [facility]. RIGHT PICC INTACT. ALL BELONGINGS WITH PT. TRANSPORTATION WILL ARRIVE BETWEEN [phone]. WILL CONTINUE TO MONITOR.
--- NOTE | 2017-04-08 14:06 | NUR ---
CWOCN: UNABLE TO PROVIDE DISCHARGE INSTRUCTIONS FOR WOUND CARE SECONDARY TO PATIENT REFUSED EVALUATION BY WOUND CARE
--- NOTE | 2017-04-08 20:03 | Family Medicine Progress Note ---
Progress Note Date of Service Apr 08, 2017. History Pt seen and examined at bedside - no active complaints at this time, no acute events overnight. Tolerating PICC access well. Right groin wound still draining clear/purulent per patient but comfortable and dressed. Amenable to protracted IV abx course. General Appearance: WD/WN, no apparent distress Respiratory: chest non-tender, lungs clear, normal breath sounds, no respiratory distress Cardiovascular: normal peripheral pulses, regular rate, rhythm, no murmur Gastrointestinal: normal bowel sounds, non tender, soft, no organomegaly Skin Characteristics: other (right groin wound with local erythema and induration stable from previous with visible clear/purulent drainage) Assessment/Plan 66 y/o male h/o chronic systolic CHF (EF 25-30%), VT s/p AICD, CAD (h/o IA), chronic AF, HTN, HLD, Factor V Leiden (h/o PE), PAD (s/p L BKA, R iliac profundoplasty and stent), chronic elevated torponin, gout, prostate CA, GERD, anxiety and recurrent UTI admitted from [facility] for R groin cellulitis R groin cellulitis w/ drainage s/p R iliac profundoplasty and stenting (Nov 2016 ) - Cx w/ MRSA and proteus - PICC placed for outpatient IV abx therapy as noted. Follow up w/ ID Sacral pressure ulcer - would recommend continued outpatient wound care Chronic AF, CAD s/p IA, VT s/p AICD, HTN, HLD, sCHF - continue ASA, coreg, losartan, simvastatin, imdur, lasix, xarelto PAD, PVD - continue ASA and simvastatin COPD - stable, continue present regimen Factor V Leiden - continue xarelto GERD - continue ranitidine BID Anxiety - sertraline 200mg daily Code Status: LEVEL I, FULL
--- NOTE | 2017-04-08 20:22 | Discharge Summary ---
Discharge Summary Date of Service Apr 08, 2017. Discharge Summary Admission Date: Apr 02, 2017 at 13:28 Discharge Date: Apr 08, 2017 Discharge Disposition: residential facility Principal Diagnosis: Cellulitis of Right groin Immunizations: Have You Had Influenza Vaccine: Yes Influenza Vaccine Date: Apr 16, 2012 History of Tetanus Vaccine?: No History of Pneumococcal: Yes Pneumococcal Date: Feb 03, 2007 History of Hepatitis B Vaccine: No Procedures: CHEST ONE VIEW PORTABLE CLINICAL HISTORY: 66 years-old Male presenting with right PICC tip placement. TECHNIQUE: Portable upright AP view of the chest was obtained. COMPARISON: 04/07/2017 at 3:53 PM. FINDINGS: The right upper extremity PICC now terminates in the lower SVC. Left subclavian implanted cardiac defibrillator with lead to the right ventricular apex from a median sternotomy wires, mediastinal surgical clips, and right axillary surgical clips unchanged. Atherosclerosis of aortic arch. Enlargement of the cardiac silhouette unchanged. Elevation of the left hemidiaphragm with left basilar opacity. Improved aeration of the right lung. Slight decreased prominence of pulmonary vasculature. No new focal infiltrate. Trace left pleural effusion may be present. No pneumothorax. IMPRESSION: 1. The right upper extremity PICC now terminates appropriately in the lower SVC. 2. Left basilar atelectasis. 3. Cardiomegaly with decrease evidence of volume overload, which may be due to CHEST ONE VIEW PORTABLE CLINICAL HISTORY: 66 years-old Male presenting with right picc tip placement. TECHNIQUE: Portable upright AP view of the chest was obtained. COMPARISON: 03/30/2017. FINDINGS: Right upper extremity PICC terminates in the right internal jugular vein oriented superiorly. Left subclavian implanted cardiac defibrillator with lead to the right ventricular apex. Median sternotomy wires and mediastinal surgical clips noted. Atherosclerosis of aortic arch. Cardiac silhouette moderately enlarged as on prior exam. Prominence of pulmonary vasculature. Minimal bibasilar opacities and mildly low lung volumes. Trace left pleural effusion suggested. No pneumothorax. Surgical clips noted in the right axilla. Osseous structures normal. Upper abdomen normal. IMPRESSION: 1. The tip of the right upper extremity PICC terminates inappropriately in the right internal jugular vein oriented superiorly. Repositioning recommended. 2. Cardiomegaly with volume overload. No emily pulmonary edema. 3. Bibasilar atelectasis and trace left pleural effusion. The report will be called/faxed according to standard departmental protocol. CT RIGHT HIP NO CONTRAST CT DOSE: 734.78 mGy.cm CLINICAL HISTORY: Right hip pain. Right groin infection. TECHNIQUE: Helical images were acquired in transverse plane. No intravenous contrast was administered. A dose lowering technique was utilized adhering to the principles of ALARA. COMPARISON STUDY: None. FINDINGS: There are multiple surgical clips within the right hemipelvis. The bones are osteopenic. There is an old fracture the right inferior pubic ramus. No acute fractures are visualized. There are suspected bladder diverticula present. There is a 3 cm subcutaneous right inguinal fluid collection. This may represent an abscess or hematoma. There is infiltration of the overlying fat. PELVIS NO IV/ORAL CONT (CT) CLINICAL HISTORY: R groin infection pain. TECHNIQUE: Transaxial acquisition. Multi axial reformatted images. No contrast enhancement. COMPARISON STUDY: None FINDINGS: Focal right inguinal inflammatory process with a hyperdense 2.5 cm complex fluid collection/phlegmon. Apparent superficial wound. Mild surrounding cellulitis-type process. No evidence for extension to the osseous structures. Several reactive regional nodes. Deformity of the osseous structures consistent with old trauma. This concludes the pubic rings bilaterally. Bladder is midline. Mild fecal impaction. Note is made of an inflammatory process of the left posterior upper thigh region. This is rather large geographic extension with a hyperdense and or phlegmon is process measuring 8 x 5 cm. This is immediately posterior and inferior to the left inferior pubic ring level. No evidence for a bony destructive process or osteomyelitis based on CT criteria. Deformity pubic rings is again noted secondary to old trauma. IMPRESSION: 1. Focal inflammatory changes of the right inguinal region as well as posterior left thigh region. 2. This is most consistent with that of cellulitis with central areas of potential hematoma versus abscess formation within the right groin region measuring 2.5 cm. 3. Inflammatory process of the left posterior thigh and is located down most exclusively to the subcutaneous fat with potential linear extension to the posterior margin of the extreme left inferior pubic ring. 4. This has a hyperdense core and or phlegmon,_measuring 8 x 5 cm. 5. No well-defined evidence for osteomyelitis. Deformity of the pubic ring secondary to old trauma bilaterally. Consultations: Infectious Disease General Surgery Medication Reconciliation Continued Medications: Acetaminophen (Tylenol) 500 Mg Tab 1000 MG PO BID, TAB Acetaminophen Tab (Tylenol) 325 Mg Tab 650 MG PO Q6H PRN for Pain Allopurinol (Zyloprim) 100 Mg Tab 100 MG PO QAM, TAB Aluminum/Magnesium/Simeth (Maalox Max Susp) Susp 30 ML PO Q6H PRN for RN Aspirin (Aspirin Ec) 81 Mg Tab 81 MG PO QAM Bisacodyl (Dulcolax) 10 Mg Sup 1 SUPP DC UD PRN for Constipation Carvedilol (Carvedilol) 3.125 Mg Tab 9.375 MG PO BID Fentanyl (Fentanyl) 50 Mcg Tdsy 50 MCG TD [id number] Ferrous Sulfate (Ferrous Sulfate) 325 Mg Tab 325 MG PO BID TAKE WITH FOOD Fluticasone Prop/Salmeterol (Advair Diskus 500/50 60 Dose) 1 Ea Aerp 1 PUFFS INH BID for 30 Days, #1 INHALER 5 Refills Furosemide (Lasix) 40 Mg Tab 60 MG PO QAM, TAB Gabapentin (Neurontin) 100 Mg Cap 200 MG PO QAM, CAP Gabapentin (Neurontin) 600 Mg Tab 600 MG PO HS Guaifenesin (Robitussin) 100 Mg/5 Ml Kika 10 ML PO Q6H PRN for Cough diabetic tussin 100mg/5ml Ipratropium-Albuterol (Combivent Respimat) 1 Aer Aer 1 PUFFS INH Q6H, INH WHILE AWAKE Isosorbide Mononitrate (Imdur Ext Rel) 60 Mg Tab 60 MG PO QAM, TAB Losartan Potassium (Cozaar) 25 Mg Tab 25 MG PO QAM, TAB Magnesium Hydroxide (Milk Of Magnesia) 30 Ml Susp 30 ML PO PRN for Constipation, ML day 2 per protocol Oxycodone HCl (Oxycodone HCl) 20 Mg/1 Ml Soln 20 MG PO Q4H PRN for UD MODERATE TO SEVERE PAIN Polyvinyl Alcohol (Artificial Tears) 1.4 % Kika 2 DROPS OPB QID PRN for DRYNESS Potassium Chloride (Micro-K Ext Rel) 10 Meq Capcr 20 MEQ PO QAM, CAP Prune Juice (Prune Juice ) Liqd 8 OZ PO prune juice, prunes or other fiber on day 1 of protocol per pt preference Ranitidine Hcl (Zantac) 150 Mg Tab 150 MG PO BID, TAB Rivaroxaban (Xarelto) 20 Mg Tab 20 MG PO HS, TAB Sertraline (Zoloft) 100 Mg Tab 200 MG PO QAM, TAB Simvastatin (Zocor) 40 Mg Tab 40 MG PO QPM, TAB Sodium Phosphate/Biphosphate (Fleet Enema) Veronica 1 EA DC DAILY, BTL day four per protocol Topiramate (Topamax) 100 Mg Tab 100 MG PO BID, TAB White Petrolatum-Mineral Oil (Genteal Tears Night-Time) 1 Oin Oin 1 DOSE OPB DAILY PRN for DRYNESS APPLY 1/2 INCH RIBBON TO EACH EYE WITH EACH APPLICATION Discontinued Medications: Doxycycline Hyclate (Doxycycline Hyclate) 100 Mg Tab 1 TAB PO BID for 10 Days STARTED 03/25 AT 2030 FOR 10 DAY THERAPY Levofloxacin (Levaquin) 750 Mg Tab 1 TAB PO DAILY for 10 Days, #10 TAB Discharge Exam Constitutional: No fever, No chills, No weakness Respiratory: No shortness of breath Cardiovascular: No chest pain, No edema, No palpitations Abdomen: No pain, No nausea, No vomiting, No diarrhea Male : No dysuria, No urinary frequency Skin: No rash, No itch GENERAL: alert, no distress, EYE EXAM: normal conjunctiva, PERRL and EOM's grossly intact NECK: supple, non-tender LUNGS: Clear to auscultation. Normal chest wall mechanics HEART: no murmurs, S1 normal and S2 normal ABDOMEN: abdomen soft, non-tender, normo-active bowel sounds, no masses, no rebound or guarding. SKIN: sacral ulcer UPPER EXTREMITIES: upper extremities are grossly normal. LOWER EXTREMITIES: Left BKA, Right foot , bandage in place Rt groin, draining , erythema improved, non- tender NEURO EXAM: Normal sensorium, cranial nerves II-XII grossly intact, normal speech Hospital Course H&P Patient is a 66 y/o male, with PMHx of chronic systolic CHF- EF 25-30%, VT- AICD placement, CAD- history of OR, Gout, Prostate CA, COPD, Chronic AF, HLD, HTN, Factor V Leiden mutation and h/o PE , Renetta's syndrome , Severe PAD s/p L BKA, s/p R iliac profundoplasty and stent, Chronic troponin elevation, recurrent UTIs, GERD, and anxiety, who was a direct admit from [facility] due to R groin cellulitis. Patient was seen in ED on 03/30/17 due to R groin pain, erythema, and drainage. Wound was cultured and he was discharged back to [facility] from ED on Levaquin. Wound cultures now growing MRSA and Proteus Mirabilis. On exam , patient had ultiple nonhealing wounds but the one of concern is his right groin at the lower aspect of right profundoplasty incision done by Dr. Gomez in November in which dacron patch was used. Hospital course: R groin cellulitis s/p R iliac profundoplasty and stent by Dr. Gomez in November 2016- growing MRSA and Proteus mirabilis from cultures on 03/30: - patient is afebrile, WBC normal, vitals stable, no significant groin pain - placed on IV Rocephin + Vancomycin - BCx from 03/30- NGTD - Wound care consulted - General surgery, ID consulted -evaluated by Vascular, Decision made to maintain on abx and potentially remove Dacron patch if no improvement in 4-6 wks -Picc line placed -Discharged to [facility] with total of 4 wks of IV Vancomycin, IV Ceftriaxone F/u appt with ID ( Dr. Kirk) in Wound care clinic on Discharge in 1-2 wks - follow up With Vascular Surgery ( Dr. Gomez) in 1-2 wks Sacral Ulcer - Wound care Chronic a.fib, CAD s/p OR, h/o VT w/ AICD, HTN, HLD, systolic CHF: - Continue Coreg 9.375 mg daily, ASA 81 mg daily, Xarelto 20 mg HS, Lasix 60 mg daily, Imdur 60 mg daily, Zocor 40 mg HS, Losartan 25 mg daily PAD, PVD: Continue ASA and Zocor Anxiety: Zoloft 200 mg daily COPD w/out exacerbation: Continue home inhalers Gout: Continue Allopurinol 100 mg daily Factor V Leiden mutation and h/o PE: Xarelto GERD, GI prophylaxis: Zantac 150 mg BID DVT prophylaxis: Xarelto Code Status: LEVEL I, FULL Dispo: Discharged to [facility] Total Time Spent: Less than 30 minutes This includes examination of the patient, discharge planning, medication reconciliation, and communication with other providers. Discharge Instructions Please refer to the electronic Patient Visit Report (Discharge Instructions) for additional information. Resident Tracking Resident Involvement: Resident Care Provided Care Provided: Adult Hospital Medicine History Resident Physician Supervision Note: I was present with Dr. Sharif during the history and exam. I discussed the case with the resident and agree with the findings and plan as documented in the note. Any exceptions or clarifications are listed here. For full attending history and physical, see note from day of discharge. Assessment/Plan 66 y/o male h/o chronic systolic CHF (EF 25-30%), VT s/p AICD, CAD (h/o OR), chronic AF, HTN, HLD, Factor V Leiden (h/o PE), PAD (s/p L BKA, R iliac profundoplasty and stent), chronic elevated torponin, gout, prostate CA, GERD, anxiety and recurrent UTI admitted from [facility] for R groin cellulitis R groin cellulitis w/ drainage s/p R iliac profundoplasty and stenting (Nov 2016 ) - Cx w/ MRSA and proteus - PICC placed for outpatient IV abx therapy to complete course Sacral pressure ulcer - would recommend continued outpatient wound care Chronic AF, CAD s/p OR, VT s/p AICD, HTN, HLD, sCHF - continue ASA, coreg, losartan, simvastatin, imdur, lasix, xarelto PAD, PVD - continue ASA and simvastatin COPD - stable, continue present regimen Factor V Leiden - continue xarelto GERD - continue ranitidine BID Anxiety - sertraline 200mg daily Code Status: LEVEL I, FULL
[2017-04-09] MEDS ORDERED: VANCOMYCIN TROUGH ONE (11:30)
[2017-04-10] MEDS ORDERED: VANCOMYCIN TROUGH SCH (05:30)
[2017-04-15] MEDS ORDERED: CEFT1INJ57 IV (14:02)
[2017-04-15] MEDS ORDERED: vancomycin (14:02)
[2017-04-28] MEDS ORDERED: FRS/40 PO (14:33)
[2017-05-15] MEDS ORDERED: IPRA-64 INH (13:17)
== END 2017-04-08 14:51 | DRG 602 ==
LOC: UNDOADMIN 12:44 → C.MS4W 12:44
PROVIDERS: ADMIT Internal Medicine; ATTEND Family Medicine
PROC: 02HV33Z Insertion of Infusion Device into Superior Vena Cava, Percutaneous Approach (ICD-10-PCS; principal; 2017-04-07)
DX: L03.314 Cellulitis of groin (principal); L89.153 Pressure ulcer of sacral region, stage 3; I50.22 Chronic systolic (congestive) heart failure; D68.51 Activated protein C resistance; T81.4XXA Infection following a procedure, initial encounter; I48.92 Unspecified atrial flutter; I11.0 Hypertensive heart disease with heart failure; B95.62 Methicillin resistant Staphylococcus aureus infection as the cause of diseases classified elsewhere; I25.10 Atherosclerotic heart disease of native coronary artery without angina pectoris; M10.9 Gout, unspecified; I25.2 Old myocardial infarction; J44.9 Chronic obstructive pulmonary disease, unspecified; I48.2 Chronic atrial fibrillation; E78.5 Hyperlipidemia, unspecified; G90.2 Horner's syndrome; I73.9 Peripheral vascular disease, unspecified; E87.6 Hypokalemia; K21.9 Gastro-esophageal reflux disease without esophagitis; F41.9 Anxiety disorder, unspecified; Z79.01 Long term (current) use of anticoagulants; Z79.82 Long term (current) use of aspirin; Z79.899 Other long term (current) drug therapy; Z86.711 Personal history of pulmonary embolism; Z88.1 Allergy status to other antibiotic agents; Z89.512 Acquired absence of left leg below knee; Z98.890 Other specified postprocedural states; X58.XXXA Exposure to other specified factors, initial encounter; F17.200 Nicotine dependence, unspecified, uncomplicated; Z87.440 Personal history of urinary (tract) infections; Z85.46 Personal history of malignant neoplasm of prostate; Z88.5 Allergy status to narcotic agent; Z88.8 Allergy status to other drugs, medicaments and biological substances; Z91.018 Allergy to other foods; Z82.49 Family history of ischemic heart disease and other diseases of the circulatory system

== ENCOUNTER → 2017-04-11 | Outpatient (CLI) | payer OTHER ==
[~2017-04-11] MED LIST changes: -ACET-1693 PO; +ACET325T96 PO; -DOXY1TAB6 PO; -LEVO-18 PO
== END ==
LOC: C.LABCC 08:19
PROVIDERS: ATTEND Internal Medicine
DX: A49.02 Methicillin resistant Staphylococcus aureus infection, unspecified site (principal); L03.314 Cellulitis of groin

== ENCOUNTER → 2017-04-12 | Outpatient (CLI) | payer OTHER ==
[2017-04-12 08:22] LABS: BASO % 0.4 %; BASO ABS # 0.03 K/uL (0-0.2); EOS ABS # 0.24 K/uL (0-0.5); HEMATOCRIT 35.2 % (42-52); IG# 0.02 K/uL (0.00-0.02); LYMPH ABS # 2.33 K/uL (1.2-3.4); MEAN CELL VOLUME 101.1 fL (80-100); MEAN CORPUSCULAR HEMOGLOBIN 31.6 pg (25-34); MEAN CORPUSCULAR HGB CONC 31.3 g/dl (32-36); MONO % 6.4 %; MONO ABS # 0.51 K/uL (0.11-0.59); PLATELET COUNT 228 K/uL (130-400); RED CELL DISTRIBUTION WIDTH CV 14.5 % (11.5-14.5); RED CELL DISTRIBUTION WIDTH SD 52.8 fL (36.4-46.3); WHITE BLOOD COUNT 8.03 K/uL (4.8-10.8)
[2017-04-12 08:28] LABS: BLOOD UREA NITROGEN 11 mg/dl (7-18); CALCIUM 8.4 mg/dl (8.5-10.1); CARBON DIOXIDE 26 mmol/L (21-32); CREATININE 0.93 mg/dl (0.60-1.40); GLUCOSE 107 mg/dl (70-99); POTASSIUM 3.5 mmol/L (3.5-5.1); SODIUM 143 mmol/L (136-145)
== END ==
LOC: C.LABCC 07:52
PROVIDERS: ATTEND Internal Medicine
DX: L02.214 Cutaneous abscess of groin (principal); L03.314 Cellulitis of groin; B95.62 Methicillin resistant Staphylococcus aureus infection as the cause of diseases classified elsewhere

== ENCOUNTER → 2017-04-13 | Outpatient (CLI) | payer OTHER ==
[~2017-04-13] MED LIST changes: +CEFT1INJ57 IV; +vancomycin
--- NOTE | 2017-04-13 12:38 | DIAGNOSTIC IMAGING REPORT ---
EXTREMITY NONVASCULAR LIMITED CLINICAL HISTORY: ABCESS ON LEFT BUTTOCK abscess TECHNIQUE: Ultrasound COMPARISON STUDY: CT pelvis 04/06/2017 FINDINGS: Complex heterogeneous collection left buttock/gluteal region measuring 7 x 5 x 3 cm. This is nonspecific in appearance but potentially suggest hematoma, abscess, versus complex hematoma. Moderate surrounding cellulitis. No definite air containment. IMPRESSION: Study confirms the CT findings and suggests a 7 x 5 x 3 cm complex collection left buttock/gluteal region. Diagnostic considerations include hematoma versus abscess , with surrounding cellulitis. The above report was generated using voice recognition software. It may contain grammatical, syntax or spelling errors. Electronically signed by: Shaka Richardson M.D. 04/13/2017 12:37 PM Dictated Date/Time: 04/13/2017 12:34 PM
== END ==
LOC: C.ULTR 11:01
PROVIDERS: ATTEND Nurse Practitioner Adult Health
DX: L02.31 Cutaneous abscess of buttock (principal)

== ENCOUNTER → 2017-04-14 | Outpatient (CLI) | payer OTHER ==
[2017-04-14 09:18] LABS: BLOOD UREA NITROGEN 10 mg/dl (7-18); CALCIUM 8.5 mg/dl (8.5-10.1); CARBON DIOXIDE 24 mmol/L (21-32); CREATININE 0.94 mg/dl (0.60-1.40); GLUCOSE 105 mg/dl (70-99); POTASSIUM 3.9 mmol/L (3.5-5.1); SODIUM 143 mmol/L (136-145)
== END ==
LOC: C.LABCC 08:44
PROVIDERS: ATTEND Internal Medicine
DX: L02.214 Cutaneous abscess of groin (principal)

== ENCOUNTER 2017-04-24 01:06 | Inpatient (IN) | payer OTHER ==
[~2017-04-24] VITALS: Ht 180.3 cm; Wt 98.3 kg
[2017-04-24] VITALS (8 sets, daily range): BP systolic 112–137; BP diastolic 72–84; PULSE 59–89; TEMP 36.5–36.7; O2SAT 96–100; Ht 180.3 cm; Wt 98.3 kg
--- NOTE | 2017-04-24 01:26 | EMERGENCY ROOM VISIT NOTE ---
History Report prepared by Steve: Wilner Schwarz Under the Supervision of: Dr. Fabiola Velasquez D.O. First contact with patient: 01:13 Chief Complaint: SHORTNESS OF BREATH Stated Complaint: SHORTNESS OF BREATH / DEFIBRILATOR ACTION X4 History of Present Illness The patient is a 66 year old male who presents to the Emergency Room via EMS with complaints of constant shortness of breath that began prior to arrival. Patient describes the shortness of breath as severe. Nurse states that the patient's IVCD went off 4 times. Nurse states that the patient is on continuous home O2 at [facility]. Patient denies chest pain or any body aches. Pertinent past medical history includes MRSA in a groin wound for which she is currently takes Vancomycin. He has a PICC line in place. Source of History: patient Onset: Prior to arrival Symptom Intensity: severe Timing: constant Note: Patient denies chest pain or body aches. Review of Systems See HPI for pertinent positives & negatives. A total of 10 systems reviewed and were otherwise negative. 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 (3) Atrial fibrillation (4) Atrial flutter (5) Benign hypertension (6) Carcinoma of prostate (7) Cellulitis of groin (8) Chronic congestive heart failure (9) Defibrillator discharge (10) Gastroesophageal reflux disease (11) History of - pulmonary embolus (12) Hyperlipidemia (13) Hypoxemia (14) Migraine (15) Sepsis due to pneumonia (16) uti Family History FHx: ischemic heart disease Social History Smoking Status: Former Smoker Alcohol Use: occasionally Drug Use: none Housing Status: intermediate Occupation Status: disabled Current/Historical Medications Scheduled Acetaminophen (Tylenol), 1,000 MG PO BID Allopurinol (Zyloprim), 100 MG PO QAM Aspirin (Aspirin Ec), 81 MG PO QAM Carvedilol (Carvedilol), 9.375 MG PO BID Ceftriaxone Sod (Rocephin), 2 GM IV QD Fentanyl (Fentanyl), 50 MCG TD CQ72HR Ferrous Sulfate (Ferrous Sulfate), 325 MG PO BID Fluticasone Prop/Salmeterol (Advair Diskus 500/50 60 Dose), 1 PUFFS INH BID Furosemide (Lasix), 60 MG PO QAM Gabapentin (Neurontin), 200 MG PO QAM Gabapentin (Neurontin), 600 MG PO HS Ipratropium-Albuterol (Combivent Respimat), 1 PUFFS INH Q6H Isosorbide Mononitrate Ext Rel (Imdur Ext Rel), 60 MG PO QAM Losartan Potassium (Cozaar), 25 MG PO QAM Potassium Chloride (Micro-K Ext Rel), 20 MEQ PO QAM Ranitidine Hcl (Zantac), 150 MG PO BID Rivaroxaban (Xarelto), 20 MG PO HS Sertraline (Zoloft), 200 MG PO QAM Simvastatin (Zocor), 40 MG PO QPM Sodium Phosphate/Biphosphate (Fleet Enema), 1 EA [place] DAILY Topiramate (Topamax), 100 MG PO BID Vancomycin HCl in Sodium Chlor (VANCOMYCIN in NSS), 1,750 MG IV Q30 HOURS Scheduled PRN Acetaminophen Tab (Tylenol), 650 MG PO Q6H PRN for Pain Albuterol Sulfate (Proair Respiclick), 2 PUFFS INH Q6 PRN for SOB/Wheezing Aluminum/Magnesium/Simeth (Maalox Max Susp), 30 ML PO Q6 PRN for DYSPEPSIA Artificial Tear Solution (Artificial Tears), 2 DROPS OP QID PRN for DRY EYES Bisacodyl (Dulcolax), 1 SUPP [place] UD PRN for Constipation Guaifenesin (Robitussin), 10 ML PO Q6H PRN for Cough Magnesium Hydroxide (Milk Of Magnesia), 30 ML PO for Constipation Oxycodone HCl (Oxycodone HCl), 20 MG PO Q4H PRN for UD Polyvinyl Alcohol (Artificial Tears), 2 DROPS OPB QID PRN for DRYNESS White Petrolatum-Mineral Oil (Genteal Tears Night-Time), 1 DOSE OPB DAILY PRN for DRYNESS Miscellaneous Medications Prune Juice (Prune Juice ), 8 OZ PO Allergies Coded Allergies: Neomycin (Verified Allergy, Intermediate, RED, SORE, 04/24/17) Bacitracin (Verified Allergy, Unknown, unknown, 04/24/17) Kiwi (Verified Allergy, Unknown, itchy, 04/24/17) Polymyxin B (Verified Allergy, Unknown, unknown, 04/24/17) Morphine (Verified Adverse Reaction, Intermediate, HALLUCINATION, CONFUSION,AGITATION, 04/24/17) Physical Exam Vital Signs Date Time Temp Pulse Resp B/P (MAP) Pulse Ox O2 Delivery O2 Flow Rate FiO2 04/24/17 04:12 88 20 128/86 96 Nasal Cannula 4.0 04/24/17 02:13 92 20 105/92 98 Nasal Cannula 4.0 04/24/17 01:48 91 28 164/124 100 Nasal Cannula 4.0 04/24/17 01:20 82 04/24/17 01:12 36.9 92 26 144/112 100 Nasal Cannula 4.0 04/24/17 01:12 95 Room Air 04/24/17 01:12 95 Room Air Physical Exam HEENT: Head - normocephalic and atraumatic Pupils are equal, round, and reactive to light. Extraocular eye muscles are intact, and sclera are anicteric. Nose - moist nasal mucosa without discharge. Mouth - moist buccal mucosa. Oropharynx is nonerythematous and there is no tonsillar exudate or edema noted. Neck: Supple; no JVD, nuchal rigidity, cervical lymphadenopathy. Heart: Tachycardic rate and irregular rhythm. There is a normal S1 and S2 with no murmurs, clicks, or gallops appreciated. Lungs: Diminished breath sounds at both bases. Rales throughout all lung bautista Abdomen: Soft, completely nontender, nondistended, with good bowel sounds. There are no palpable pulsatile masses or hepatosplenomegaly. There is no guarding, rigidity, or rebound noted. Extremities: No evidence of cyanosis or clubbing. There are easily palpable peripheral pulses. 1+ edema in lower extremities. Left BKA. There is a PICC line in the right upper extremity Skin: pale, warm, and dry with good turgor and no rashes. Medical Decision & Procedures ER Provider Diagnostic Interpretation: Radiology results as stated below per my review and the radiologist's interpretation: Chest X-Ray Worsening left sided pleural effusion, cardiomegaly, AICD, and moderate volume overload. Laboratory Results 04/24/17 01:22 Red Blood Count 4.11, Mean Corpuscular Volume 100.2, Mean Corpuscular Hemoglobin 31.4, Mean Corpuscular Hemoglobin Concent 31.3, Mean Platelet Volume 10.2, Neutrophils (%) (Auto) 77.6, Lymphocytes (%) (Auto) 15.0, Monocytes (%) ( Auto) 6.6, Eosinophils (%) (Auto) 0.4, Basophils (%) (Auto) 0.2, Neutrophils # ( Auto) 7.95, Lymphocytes # (Auto) 1.54, Monocytes # (Auto) 0.68, Eosinophils # ( Auto) 0.04, Basophils # (Auto) 0.02 04/24/17 01:22 Test 04/24/17 01:22 04/24/17 01:50 White Blood Count 10.25 K/uL (4.8-10.8) Red Blood Count 4.11 M/uL (4.7-6.1) Hemoglobin 12.9 g/dL (14.0-18.0) Hematocrit 41.2 % (42-52) Mean Corpuscular Volume 100.2 fL (80-100) Mean Corpuscular Hemoglobin 31.4 pg (25-34) Mean Corpuscular Hemoglobin Concent 31.3 g/dl (32-36) Platelet Count 266 K/uL (130-400) Mean Platelet Volume 10.2 fL (7.4-10.4) Neutrophils (%) (Auto) 77.6 % Lymphocytes (%) (Auto) 15.0 % Monocytes (%) (Auto) 6.6 % Eosinophils (%) (Auto) 0.4 % Basophils (%) (Auto) 0.2 % Neutrophils # (Auto) 7.95 K/uL (1.4-6.5) Lymphocytes # (Auto) 1.54 K/uL (1.2-3.4) Monocytes # (Auto) 0.68 K/uL (0.11-0.59) Eosinophils # (Auto) 0.04 K/uL (0-0.5) Basophils # (Auto) 0.02 K/uL (0-0.2) RDW Standard Deviation 53.4 fL (36.4-46.3) RDW Coefficient of Variation 14.7 % (11.5-14.5) Immature Granulocyte % (Auto) 0.2 % Immature Granulocyte # (Auto) 0.02 K/uL (0.00-0.02) Prothrombin Time 14.4 SECONDS (9.0-12.0) Prothromb Time International Ratio 1.4 (0.9-1.1) Activated Partial Thromboplast Time 35.5 SECONDS (21.0-31.0) Partial Thromboplastin Ratio 1.4 Anion Gap 8.0 mmol/L (3-11) Estimated GFR () 74.6 Estimated GFR (Non- 64.3 BUN/Creatinine Ratio 11.1 (10-20) Calcium Level 9.2 mg/dl (8.5-10.1) Magnesium Level 2.2 mg/dl (1.8-2.4) Total Bilirubin 0.6 mg/dl (0.2-1) Aspartate Amino Transf (AST/SGOT) 65 U/L (15-37) Alanine Aminotransferase (ALT/SGPT) 22 U/L (12-78) Alkaline Phosphatase 101 U/L (45-117) Total Creatine Kinase 253 U/L (39-308) Creatine Kinase MB 52.9 ng/ml (0.5-3.6) Creatine Kinase MB Ratio 20.9 (0-3.0) Total Protein 8.9 gm/dl (6.4-8.2) Albumin 3.1 gm/dl (3.4-5.0) Globulin 5.8 gm/dl (2.5-4.0) Albumin/Globulin Ratio 0.5 (0.9-2) Bedside Lactic Acid Venous 2.08 mmol/L (0.90-1.70) Laboratory results per my review. Medications Administered Medications (Trade) Dose Ordered Sig/Emily Route Start Time Stop Time Status Last Admin Dose Admin Oxycodone HCl (Roxicodone Intensol Soln) 20 mg Q4H PRN PO 04/24/17 05:15 05/08/17 05:14 04/24/17 14:04 20 MG ECG Indication: SOB/dyspnea Rate (beats per minute): 96 Rhythm: atrial fibrillation Findings: no acute ischemic change, no ectopy Comparison ECG Date: 01/13/2017 Change: no significant change Change: Patient's electrocardiogram was interpreted by me. ED Course 0120: The patient was evaluated in room B1. A complete history and physical examination were performed. Nursing notes and previous electronic medical records were reviewed. Labs were drawn as above. Twelve-lead EKG was obtained as described above. A portable chest x-ray was performed. 0130: The patient was felt to be stable. Patient was moved to room B6. 0250: The patient is resting comfortable at this time. Vitals are stable. I reviewed some of his laboratory studies and chest x-ray results with him. 0412: Defibrillator was interrogated from [employer] saying the patient had 5 episodes of defibrillator going off with nothing since midnight. Indication is patient had episodes of Torsades. 0507: Upon reevaluation, I discussed findings and results will be further evaluated. He verbalized agreement of the treatment plan. I spoke with Dr. Larkin of the [facility] Hospitalist Service. The patient will be evaluated for further management and care. Medical Decision The patient is a 66 year old male who presents to the ED with shortness of breath. Differential diagnosis includes sepsis, CHF, ventricular tachycardia, and ACS. Lab results show no leukocytes, slightly low hemoglobin 12.9, lactic acid = 2.0 , glucose = 124, troponin = 4.7, normal LFT, and INR = 1.4. This is a chronically ill 66-year-old male patient who presents to the emergency department from [facility] with shortness of breath and firing of his AICD. It seems that the patient had multiple episodes of torsades which caused the defibrillator to fire. On physical exam, the patient is short of breath and suffering from CHF. He remained hemodynamically stable. He did have an elevated troponin which is most likely secondary to the firing of the defibrillator. I discussed case with the [facility] Hospitalist group and they will evaluate for further management. Medication Reconcilliation Current Medication List: was personally reviewed by me Blood Pressure Screening Patient's blood pressure: Elevated blood pressure Blood pressure disposition: Elevated BP felt to be situational Impression Primary Impression: Torsades de pointes Additional Impression: Chronic congestive heart failure Scribe Attestation The scribe's documentation has been prepared under my direction and personally reviewed by me in its entirety. I confirm that the note above accurately reflects all work, treatment, procedures, and medical decision making performed by me. Departure Information Dispostion Being Evaluated By Hospitalist [facility] Forms HOME CARE DOCUMENTATION FORM, IMPORTANT VISIT INFORMATION Patient Instructions My [facility] Health Problem Qualifiers
[2017-04-24 01:57] LABS: BASO % 0.2 %; BASO ABS # 0.02 K/uL (0-0.2); EOS % 0.4 %; EOS ABS # 0.04 K/uL (0-0.5); HEMATOCRIT 41.2 % (42-52); HEMOGLOBIN 12.9 g/dL (14.0-18.0); IG# 0.02 K/uL (0.00-0.02); LYMPH ABS # 1.54 K/uL (1.2-3.4); MEAN CELL VOLUME 100.2 fL (80-100); MEAN CORPUSCULAR HEMOGLOBIN 31.4 pg (25-34); MEAN CORPUSCULAR HGB CONC 31.3 g/dl (32-36); MEAN PLATELET VOLUME 10.2 fL (7.4-10.4); MONO % 6.6 %; MONO ABS # 0.68 K/uL (0.11-0.59); NEUT % 77.6 %; NEUT ABS # 7.95 K/uL (1.4-6.5); PLATELET COUNT 266 K/uL (130-400); RED CELL DISTRIBUTION WIDTH CV 14.7 % (11.5-14.5); RED CELL DISTRIBUTION WIDTH SD 53.4 fL (36.4-46.3); WHITE BLOOD COUNT 10.25 K/uL (4.8-10.8)
[2017-04-24 02:12] LABS: INR 1.4 (0.9-1.1); PTT PATIENT 35.5 SECONDS (21.0-31.0)
[2017-04-24 02:17] LABS: ALBUMIN 3.1 gm/dl (3.4-5.0); ALT/SGPT 22 U/L (12-78); AST/SGOT 65 U/L (15-37); BLOOD UREA NITROGEN 13 mg/dl (7-18); CALCIUM 9.2 mg/dl (8.5-10.1); CARBON DIOXIDE 24 mmol/L (21-32); CREATININE 1.16 mg/dl (0.60-1.40); GLUCOSE 124 mg/dl (70-99); POTASSIUM 3.9 mmol/L (3.5-5.1); SODIUM 139 mmol/L (136-145)
[2017-04-24] MEDS ORDERED: ARTISOL12 OP (02:17)
[2017-04-24] MEDS ORDERED: IPRA1AER2 INH (02:20)
[2017-04-24] MEDS ORDERED: ISOS60TA25 PO (02:25)
[2017-04-24] MEDS ORDERED: ALUMSUS2 PO (02:27)
[2017-04-24] MEDS ORDERED: ALBU18002 INH (02:31)
[2017-04-24] MEDS ORDERED: VANC1INJ94 IV (02:36)
[2017-04-24 02:39] LABS: ALKALINE PHOSPHATASE 101 U/L (45-117); CKMB 52.9 ng/ml (0.5-3.6); TOTAL PROTEIN 8.9 gm/dl (6.4-8.2)
[2017-04-24] MEDS ORDERED: NITROGLYCERIN 0.4 MG SL PER TAB CHARGE SL PRN (05:15)
[2017-04-24] MEDS ORDERED: ARTIFICIAL TEARS OP SOLN OP PRN (05:15)
[2017-04-24] MEDS ORDERED: ALUMINUM/MAGNESIUM/SIMETH (MAALOX MAX) 30 ML UDC PO PRN ×2 (05:15)
[2017-04-24] MEDS ORDERED: BISACODYL 10 MG SUPP PR PRN (05:15)
[2017-04-24] MEDS ORDERED: SODIUM CHLORIDE IV SCH (05:15)
[2017-04-24] MEDS ORDERED: ALBUTEROL HFA INHALER 8.5 GM INH PRN (05:15)
[2017-04-24] MEDS ORDERED: CEFTRIAXONE SOD 1 GM VIAL IV SCH (05:15)
[2017-04-24] MEDS ORDERED: POLYETHYLENE (MIRALAX) 17 GM PACK PO PRN (05:15)
[2017-04-24] MEDS ORDERED: ACETAMINOPHEN 325 MG TAB PO PRN ×2 (05:15)
[2017-04-24] MEDS ORDERED: VANCOMYCIN HCL IV SCH (05:15)
[2017-04-24] MEDS ORDERED: ONDANSETRON INJ 2 MG/ML 2 ML VIAL IV PRN (05:15)
[2017-04-24] MEDS ORDERED: MAGNESIUM HYDROXIDE SUSP 30 ML UDC PO PRN ×2 (05:15)
[2017-04-24] MEDS ORDERED: GUAIFENESIN SUGAR FREE 200 MG/10 ML UDC PO PRN (05:15)
--- NOTE | 2017-04-24 05:45 | History and Physical ---
History & Physical Date & Time of Service: Apr 24, 2017 at 05:03 Chief Complaint: Shortness Of Breath / Defibrilator Action X4 Primary Care Physician: Sohail Ignacio M.D. History of Present Illness Source: patient 66 year old male from [facility], with PMHx of CAD- history of [place], chronic sCHF- EF 25-30%, VT- AICD placement, gout, prostate CA, COPD, chronic AF, HLD, HTN, factor V Leiden mutation and h/o PE, Renetta's syndrome, severe PAD s/p L BKA, s/p R iliac profundoplasty and stent, chronic troponin elevation, recurrent UTIs, GERD, and anxiety. He was recently admitted for MRSA and proteus groin abscess in 03/22/17 and continues treatment with IV ceftriaxone and IV vancomycin. He presented to the hospital with dyspnea and multiple discharges of his cardiac defibrillator. In the ER, his troponin was elevated but EKG shows no new ischemic changes and he otherwise denies chest discomfort. There is no new hypoxia - patient is on oxygen at baseline. CXR shows some increased marking in RLL, but no obvious infiltrate. Vitals have otherwise been stable. Patient denies other symptoms or issues on ROS. Past Medical/Surgical History Medical Problems: (1) Anxiety Status: Chronic (2) Atrial fibrillation Status: Chronic (3) Atrial flutter Status: Chronic (4) Benign hypertension Status: Chronic (5) Carcinoma of prostate Status: Chronic (6) Chronic congestive heart failure Status: Chronic (7) Gastroesophageal reflux disease Status: Chronic (8) History of - pulmonary embolus Status: Resolved (9) Hyperlipidemia Status: Chronic (10) Migraine Status: Chronic Family History FHx: ischemic heart disease Social History Smoking Status: Former Smoker Drug Use: none Marital Status: Housing status: lives with family Occupational Status: disabled Immunizations History of Influenza Vaccine: Yes Influenza Vaccine Date: Apr 16, 2012 History of Tetanus Vaccine?: No History of Pneumococcal: Yes Pneumococcal Date: Feb 03, 2007 History of Hepatitis B Vaccine: No Multi-Drug Resistant Organisms History of MDRO: Yes Type of MDRO: MRSA Allergies Coded Allergies: Neomycin (Verified Allergy, Intermediate, RED, SORE, 04/24/17) Bacitracin (Verified Allergy, Unknown, unknown, 04/24/17) Kiwi (Verified Allergy, Unknown, itchy, 04/24/17) Polymyxin B (Verified Allergy, Unknown, unknown, 04/24/17) Morphine (Verified Adverse Reaction, Intermediate, HALLUCINATION, CONFUSION,AGITATION, 04/24/17) Home Medications Scheduled Acetaminophen (Tylenol), 1,000 MG PO BID Allopurinol (Zyloprim), 100 MG PO QAM Aspirin (Aspirin Ec), 81 MG PO QAM Carvedilol (Carvedilol), 9.375 MG PO BID Ceftriaxone Sod (Rocephin), 2 GM IV QD Fentanyl (Fentanyl), 50 MCG TD CQ72HR Ferrous Sulfate (Ferrous Sulfate), 325 MG PO BID Fluticasone Prop/Salmeterol (Advair Diskus 500/50 60 Dose), 1 PUFFS INH BID Furosemide (Lasix), 60 MG PO QAM Gabapentin (Neurontin), 200 MG PO QAM Gabapentin (Neurontin), 600 MG PO HS Ipratropium-Albuterol (Combivent Respimat), 1 PUFFS INH Q6H Isosorbide Mononitrate Ext Rel (Imdur Ext Rel), 60 MG PO QAM Losartan Potassium (Cozaar), 25 MG PO QAM Potassium Chloride (Micro-K Ext Rel), 20 MEQ PO QAM Ranitidine Hcl (Zantac), 150 MG PO BID Rivaroxaban (Xarelto), 20 MG PO HS Sertraline (Zoloft), 200 MG PO QAM Simvastatin (Zocor), 40 MG PO QPM Sodium Phosphate/Biphosphate (Fleet Enema), 1 EA [place] DAILY Topiramate (Topamax), 100 MG PO BID Vancomycin HCl in Sodium Chlor (VANCOMYCIN in NSS), 1,750 MG IV Q30 HOURS Scheduled PRN Acetaminophen Tab (Tylenol), 650 MG PO Q6H PRN for Pain Albuterol Sulfate (Proair Respiclick), 2 PUFFS INH Q6 PRN for SOB/Wheezing Aluminum/Magnesium/Simeth (Maalox Max Susp), 30 ML PO Q6 PRN for DYSPEPSIA Artificial Tear Solution (Artificial Tears), 2 DROPS OP QID PRN for DRY EYES Bisacodyl (Dulcolax), 1 SUPP [place] UD PRN for Constipation Guaifenesin (Robitussin), 10 ML PO Q6H PRN for Cough Magnesium Hydroxide (Milk Of Magnesia), 30 ML PO for Constipation Oxycodone HCl (Oxycodone HCl), 20 MG PO Q4H PRN for UD Polyvinyl Alcohol (Artificial Tears), 2 DROPS OPB QID PRN for DRYNESS White Petrolatum-Mineral Oil (Genteal Tears Night-Time), 1 DOSE OPB DAILY PRN for DRYNESS Miscellaneous Medications Prune Juice (Prune Juice ), 8 OZ PO Physical Exam Vital Signs Date Time Temp Pulse Resp B/P (MAP) Pulse Ox O2 Delivery O2 Flow Rate FiO2 04/24/17 04:12 88 20 128/86 96 Nasal Cannula 4.0 04/24/17 02:13 92 20 105/92 98 Nasal Cannula 4.0 04/24/17 01:48 91 28 164/124 100 Nasal Cannula 4.0 04/24/17 01:20 82 04/24/17 01:12 36.9 92 26 144/112 100 Nasal Cannula 4.0 04/24/17 01:12 95 Room Air 04/24/17 01:12 95 Room Air General Appearance: WD/WN, no apparent distress, + pertinent finding (NC in situ) Head: normocephalic, atraumatic Eyes: normal inspection ENT: hearing grossly normal, pharynx normal Neck: supple, no adenopathy Respiratory/Chest: no respiratory distress, no accessory muscle use, + decreased breath sounds (poor inspiratory effort) Cardiovascular: regular rate, rhythm, no murmur Abdomen/GI: normal bowel sounds, non tender, soft Extremities/Musculoskelatal: + pertinent finding (BKA of left leg) Neurologic/Psych: alert, normal mood/affect, + disoriented Skin: normal color, + pertinent finding (multiple wounds and bandages on extermities) Lymphatic: no adenopathy Diagnostics Laboratory Results Results Past 24 Hours Test 04/24/17 01:22 04/24/17 01:50 Range/Units White Blood Count 10.25 4.8-10.8 K/uL Red Blood Count 4.11 4.7-6.1 M/uL Hemoglobin 12.9 14.0-18.0 g/dL Hematocrit 41.2 42-52 % Mean Corpuscular Volume 100.2 80-100 fL Mean Corpuscular Hemoglobin 31.4 25-34 pg Mean Corpuscular Hemoglobin Concent 31.3 32-36 g/dl Platelet Count 266 130-400 K/uL Mean Platelet Volume 10.2 7.4-10.4 fL Neutrophils (%) (Auto) 77.6 % Lymphocytes (%) (Auto) 15.0 % Monocytes (%) (Auto) 6.6 % Eosinophils (%) (Auto) 0.4 % Basophils (%) (Auto) 0.2 % Neutrophils # (Auto) 7.95 1.4-6.5 K/uL Lymphocytes # (Auto) 1.54 1.2-3.4 K/uL Monocytes # (Auto) 0.68 0.11-0.59 K/uL Eosinophils # (Auto) 0.04 0-0.5 K/uL Basophils # (Auto) 0.02 0-0.2 K/uL RDW Standard Deviation 53.4 36.4-46.3 fL RDW Coefficient of Variation 14.7 11.5-14.5 % Immature Granulocyte % (Auto) 0.2 % Immature Granulocyte # (Auto) 0.02 0.00-0.02 K/uL Prothrombin Time 14.4 9.0-12.0 SECONDS Prothromb Time International Ratio 1.4 0.9-1.1 Activated Partial Thromboplast Time 35.5 21.0-31.0 SECONDS Partial Thromboplastin Ratio 1.4 Sodium Level 139 136-145 mmol/L Potassium Level 3.9 3.5-5.1 mmol/L Chloride Level 107 98-107 mmol/L Carbon Dioxide Level 24 21-32 mmol/L Anion Gap 8.0 3-11 mmol/L Blood Urea Nitrogen 13 7-18 mg/dl Creatinine 1.16 0.60-1.40 mg/dl Estimated GFR () 74.6 Estimated GFR (Non- 64.3 BUN/Creatinine Ratio 11.1 10-20 Random Glucose 124 70-99 mg/dl Calcium Level 9.2 8.5-10.1 mg/dl Magnesium Level 2.2 1.8-2.4 mg/dl Total Bilirubin 0.6 0.2-1 mg/dl Aspartate Amino Transf (AST/SGOT) 65 15-37 U/L Alanine Aminotransferase (ALT/SGPT) 22 12-78 U/L Alkaline Phosphatase 101 45-117 U/L Total Creatine Kinase 253 39-308 U/L Creatine Kinase MB 52.9 0.5-3.6 ng/ml Creatine Kinase MB Ratio 20.9 0-3.0 Troponin I 4.760 0-0.045 ng/ml Total Protein 8.9 6.4-8.2 gm/dl Albumin 3.1 3.4-5.0 gm/dl Globulin 5.8 2.5-4.0 gm/dl Albumin/Globulin Ratio 0.5 0.9-2 Bedside Lactic Acid Venous 2.08 0.90-1.70 mmol/L Microbiology Results 04/24/17 Blood Culture, Received Pending 04/24/17 Blood Culture, Received Pending EKG Sinus rhythm, 96bpm, PACs Left axis deviation Intraventricular block anterolateral infarct of undetermined age Impression Assessment and Plan 66 year old male from [place], with PMHx of CAD- history of [place], chronic sCHF- EF 25-30%, VT- AICD placement, gout, prostate CA, COPD, chronic AF, HLD, HTN, factor V Leiden mutation and h/o PE, Renetta's syndrome, severe PAD s/p L BKA, s/p R iliac profundoplasty and stent, chronic troponin elevation, recurrent UTIs, GERD, and anxiety, admitted for dyspnea, s/p defibrillation from IVCD x 4 and elevated troponin Elevated troponin - Trend troponin q8h - Pacer interrogated - shows torsades, last episode at midnight - EKG PRN chest pain - Cardiology consulted - Trend BMP, Mg, PO4 R groin MRSA and Proteus mirabilis cellulitis s/p R iliac profundoplasty and stent by Dr. Gomez in November 2016- growing from cultures on 03/30 - Continue IV Rocephin + Vancomycin - Wound care consulted for multiple wounds - Contact precautions - Trend CBC Chronic a.fib, CAD s/p [place], h/o [place] w/ AICD, HTN, HLD, systolic CHF: - Continue ASA 81 mg daily, Coreg 9.375 mg daily, Losartan 25 mg daily, Imdur 60 mg daily, Lasix 60 mg daily, Zocor 40 mg HS, Xarelto 20 mg HS, COPD w/out exacerbation: Continue home inhalers PAD, PVD: Continue ASA and Zocor Anxiety: Zoloft 200 mg daily Gout: Continue Allopurinol 100 mg daily Factor V Leiden mutation and h/o PE: Xarelto GERD, GI prophylaxis: Zantac 150 mg BID DVT prophylaxis: Xarelto Code Status: LEVEL I, FULL Dispo: From [facility] Resident Physician Supervision Note: I was present with Dr. Lucas during the history and exam. I discussed the case with the resident and agree with the findings and plan as documented in the note. Any exceptions or clarifications are listed here: 66 y/o M Hx CAD, chronic systolic CHF, AF, COPD, pacer/AICD, dementia Pt resides in a care facility - AICD fired x 4 and he was sent to the ER - initial interrogation indicates episodes of VF or torsades. Mg is WNL at time of admission. Troponin elevation is expected and confirmed. He is currently being treated for a R groin abscess and has a PICC in place. EKH is paced and did not meet Sgarbossa criteria. OE AAO x 1 S1,2 R CTA - poor effort NT, ND No CCE P: Assigned to telemetry Cardiology consulted and will receive a loading dose of Amiodarone pending evaluation - cont Carvedilol Cont Lasix, ARB, Bblocker for CHF - currently euvolemic Rate is controlled and pt is anticoagulated with Xarelto Documented By: Gustavo Larkin Level of Care Telemetry Resuscitation Status FULL RESUSCITATION VTE Prophylaxis VTE Risk Assessment Done? Y/N: Yes Risk Level: Moderate Given or contraindicated: Other Anticoagulation Note Total Time: Critical Care 30 - 74 minutes Resident Tracking Resident Involvement: Resident Care Provided Care Provided: Adult Hospital Medicine
[2017-04-24] MEDS ORDERED: IV FLUIDS COMPLETED PRN (06:30)
[2017-04-24] MEDS ORDERED: AMIODARONE IV BOLUS / DRIP IV STA (07:08)
[2017-04-24] MEDS ORDERED: AMIODARONE / D5W 100 ML IV SCH (08:00)
[2017-04-24] MEDS ORDERED: AMIODARONE / D5W 200 ML IV SCH (08:10)
--- NOTE | 2017-04-24 08:37 | DIAGNOSTIC IMAGING REPORT ---
SINGLE VIEW CHEST CLINICAL HISTORY: Sepsis. FINDINGS: An AP, portable, upright chest radiograph is compared to study dated 04/07/2017 and correlated with chest CT dated 01/13/2017. The examination is degraded by portable technique and patient rotation. A single lead cardiac AICD is unchanged in position and partially obscures the left upper chest. A right PICC line is again noted. The patient is status post midline sternotomy. The heart is enlarged and there is atherosclerotic calcification of the thoracic aorta. There is pulmonary vascular congestion. Emphysema and chronic interstitial thickening are similar to previous. There is a small left pleural effusion with opacification of the left lung base. No pneumothorax is seen. The skeletal structures are osteopenic. The bony thorax is grossly intact. Surgical clips are noted in the right axilla. IMPRESSION: 1. Cardiomegaly and AICD with evidence of congestive failure. 2. Emphysema. 3. Chronic opacities at the left lung base likely represent scarring/pleural parenchymal change. Correlate clinically for evidence of superimposed pneumonia. 4. A small left pleural effusion is noted. Electronically signed by: Boris Vidales M.D. 04/24/2017 8:36 AM Dictated Date/Time: 04/24/2017 8:33 AM
[2017-04-24] MEDS ORDERED: SOD PHOSPHATE/SOD BIPHOSPHATE ENEMA 132 ML BTL PR SCH (09:00)
[2017-04-24] MEDS ORDERED: ACETAMINOPHEN 500 MG TAB PO SCH (09:00)
[2017-04-24] MEDS ORDERED: FERROUS SULFATE 325 MG TAB PO SCH (09:00)
[2017-04-24] MEDS ORDERED: VANCOMYCIN CONSULT ACTIVE PRN (10:00)
[2017-04-24] MEDS: RANITIDINE HCL 150 MG TAB PO SCH ×2 (10:13→21:32)
[2017-04-24] MEDS: ALLOPURINOL 100 MG TAB PO SCH (10:14)
[2017-04-24] MEDS: LOSARTAN POTASSIUM 25 MG TAB PO SCH (10:14)
[2017-04-24] MEDS: SERTRALINE HCL 100 MG TAB PO SCH (10:14)
[2017-04-24] MEDS: GABAPENTIN 100 MG CAP PO SCH (10:14)
[2017-04-24] MEDS: TOPIRAMATE 100 MG TAB PO SCH ×2 (10:14→21:31)
[2017-04-24] MEDS: FUROSEMIDE 20 MG TAB PO SCH (10:15)
[2017-04-24] MEDS: POTASSIUM CHLORIDE 20 MEQ TABCR PO SCH (10:15)
[2017-04-24] MEDS: ISOSORBIDE MONONITRATE 60 MG TABCR PO SCH (10:16)
[2017-04-24] MEDS: ASPIRIN 81 MG ECTAB PO SCH (10:16)
[2017-04-24] MEDS: FLUTICASONE/SALMETEROL (ADVAIR) 500/50 INH 14 PUFF INH SCH ×2 (10:17→21:30)
[2017-04-24] MEDS: CARVEDILOL 3.125 MG TAB PO SCH ×2 (10:17→21:31)
[2017-04-24] MEDS ORDERED: IPRATROPIUM BROMIDE/ALBUTEROL respimat INH INH SCH (12:00)
[2017-04-24] MEDS: CEFTRIAXONE SOD INJ 2000 MG in DEXTROSE 5% 50ML IV SCH (12:24)
[2017-04-24] MEDS: VANCOMYCIN INJ 1,750 MG in SODIUM CHLORIDE 0.9% 500ML 500 ML IV SCH (13:59)
--- NOTE | 2017-04-24 14:00 | ECHOCARDIOGRAM REPORT ---
*NOTICE TO RECEIVING CONSTITUTION PARTY AGENCY This information is strictly Confidential and protected under [place] law. [place] law prohibits you from making any further disclosure of this information unless further disclosure is expressly permitted by the written consent of the person to whom it pertains or is authorized by law. A general authorization for the release of medical or other information is not sufficient for this purpose. Hospital accepts no responsibility if the information is made available to any other person, INCLUDING THE PATIENT. Interpretation Summary * Name: PARVEEN DAVIS Study Date: 04/24/2017 09:35 AM BP: 128/86 mmHg * Patient Location: .MSICU\S\E111\S\1 HR: 88 * : 1950 (M/d/yyyy) Gender: Male Height: 75 in * Age: 66 yrs Ethnicity: [place] Weight: 239 lb * Ordering Physician: Yolanda Lucas. * Referring Physician: Clarita Solorzano * Performed By: Kristie Lopez RDCS * * Reason For Study: Elevated troponin, defibrillator discharges, dyspnea * BSA: 2.4 m2 * -- Conclusions -- * 1. Mildly dilated left ventricle with severely reduced systolic function. EF 25-30%. Akinesis of the inferior wall, inferolateral wall, and basal septum. Otherwise, global hypokinesis. No left ventricular hypertrophy. * 2. Moderately dilated right ventricle with severely reduced systolic function. * 3. The left atrium is moderately dilated. * 4. The right atrium is mildly dilated. * 5. Sclerotic aortic valve without significant stenosis. * 6. Mildly elevated right ventricular systolic pressure; 48mmHg. * 7. Technically difficult study, enhanced with IV Definity. * 8. Similar findings compared to 02/28/2014. Procedure Details * A complete two-dimensional transthoracic echocardiogram was performed (2D, M-mode, Doppler and color flow Doppler). * A contrast injection of Definity was performed to improve assessment of LV function. * Contrast was injected into an intravenous site in the left arm. * One vial of Definity ultrasound contrast was diluted in normal saline to a total volume of 10 ml. A total of '3' ml of solution was administered during imaging. * Lot # [id number] of Definity utilized for procedure. * Expiration date APR 23. * The attending nurse who injected the contrast agent was Trcaee Soriano RN. Left Ventricle * Mildly dilated left ventricle with severely reduced systolic function. EF 25-30%. Akinesis of the inferior wall, inferolateral wall, and basal septum. Otherwise, global hypokinesis. No left ventricular hypertrophy. Right Ventricle * There is a pacemaker lead in the right ventricle. * Moderately dilated right ventricle with severely reduced systolic function. Atria * The left atrium is moderately dilated. * The right atrium is mildly dilated. * There is no evidence of atrial septal defect, but resolution does not allow assessment for a patent foramen ovale. Mitral Valve * There is mild mitral annular calcification. * There is no mitral valve stenosis. * There is mild mitral regurgitation. Tricuspid Valve * The tricuspid valve is not well visualized, but is grossly normal. * There is no tricuspid stenosis. * There is trace tricuspid regurgitation. Aortic Valve * The aortic valve is trileaflet. * Sclerotic aortic valve without significant stenosis. * There is no significant aortic regurgitation. Pulmonic Valve * The pulmonary valve is inadequately visualized, but the Doppler data is adequate for interpretation. * There is no pulmonic valvular stenosis. * There is no significant pulmonary regurgitation. Great Vessels * The aortic root is normal size. Pericardium/Pleural * There is no pericardial effusion. Great Vessels * Dilated IVC with reduced inspiratory collapse. MMode 2D Measurements and Calculations IVSd 1.1 cm LVIDd 5.8 cm LVIDs 5.1 cm LVPWd 0.94 cm IVS/LVPW 1.1 FS 12.0 % EDV(Teich) 165.4 ml ESV(Teich) 123.1 ml EF(Teich) 25.6 % EDV(cubed) 193.4 ml ESV(cubed) 131.7 ml EF(cubed) 31.9 % LV mass(C)d 235.3 grams LV mass(C)dI 99.4 grams/m\S\2 SV(Teich) 42.3 ml SI(Teich) 17.9 ml/m\S\2 SV(cubed) 61.7 ml SI(cubed) 26.1 ml/m\S\2 Ao root diam 3.9 cm Ao root area 12.2 cm\S\2 ACS 1.6 cm LA dimension 4.4 cm LA/Ao 1.1 LVOT diam 2.1 cm LVOT area 3.4 cm\S\2 LVAd ap4 48.2 cm\S\2 LVLd ap4 9.7 cm EDV(MOD-sp4) 200.9 ml EDV(sp4-el) 202.5 ml LVAs ap4 40.5 cm\S\2 LVLs ap4 9.5 cm ESV(MOD-sp4) 141.8 ml ESV(sp4-el) 146.1 ml EF(MOD-sp4) 29.4 % EF(sp4-el) 27.9 % LVAd ap2 52.2 cm\S\2 LVLd ap2 10.2 cm EDV(MOD-sp2) 222.3 ml EDV(sp2-el) 226.2 ml LVAs ap2 42.1 cm\S\2 LVLs ap2 9.3 cm ESV(MOD-sp2) 156.1 ml ESV(sp2-el) 161.9 ml EF(MOD-sp2) 29.8 % EF(sp2-el) 28.4 % LVLd %diff 5.0 % EDV(MOD-bp) 216.6 ml LVLs %diff -2.62 % ESV(MOD-bp) 150.0 ml EF(MOD-bp) 30.8 % SV(MOD-sp4) 59.1 ml SI(MOD-sp4) 25.0 ml/m\S\2 SV(MOD-sp2) 66.2 ml SI(MOD-sp2) 28.0 ml/m\S\2 SV(MOD-bp) 66.6 ml SI(MOD-bp) 28.2 ml/m\S\2 SV(sp4-el) 56.5 ml SI(sp4-el) 23.9 ml/m\S\2 SV(sp2-el) 64.3 ml SI(sp2-el) 27.1 ml/m\S\2 Doppler Measurements and Calculations MV E max veronica 88.8 cm/sec MV dec time 0.15 sec Ao V2 max 93.8 cm/sec Ao max PG 3.5 mmHg Ao max PG (full) 0.99 mmHg MARTIN(V,A) 2.9 cm\S\2 MARTIN(V,D) 2.9 cm\S\2 LV V1 max PG 2.5 mmHg LV V1 max 79.5 cm/sec MR max veronica 432.7 cm/sec MR max PG 74.9 mmHg MR mean veronica 319.1 cm/sec MR mean PG 46.9 mmHg MR VTI 141.6 cm PA V2 max 71.9 cm/sec PA max PG 2.1 mmHg PA acc slope 447.7 cm/sec\S\2 PA acc time 0.08 sec PI end-d veronica 145.2 cm/sec TR max veronica 288.8 cm/sec RVSP(TR) 48.4 mmHg RAP systole 15.0 mmHg PA pr(Accel) 41.0 mmHg
[2017-04-24] MEDS: OXYCODONE HCL 20 MG/1 ML UDP PO PRN ×2 (14:04→23:07)
[2017-04-24] MEDS: AMIODARONE / D5W 200 ML IV SCH ×2 (14:18→17:28)
[2017-04-24] MEDS: CHECK FENTANYL PATCH PLACEMENT SCH (15:12)
--- NOTE | 2017-04-24 15:59 | Pharmacy Progress Note ---
Pharmacy Abx Dose Short Note Date of Service Apr 24, 2017. Assessment & Plan Assessment 66 year old male to be continued on IV Vancomycin/Ceftriaxone for treatment of MRSA/proteus mirabalis groin abscess/cellulitis. The patient has been receiving this regimen since prior admit at [facility] earlier this month and at [facility]. He presented to the hospital overnight with dyspnea and multiple discharges of his cardiac defibrillator. * Affirmed last dose IV Vancomycin received at [facility] was at 1800 on by telephone with RN at that location * Deon confirmatory IV Vancomycin level reported as 11.6 mcg/ml confirming that dose was due to start at once. * Was receiving Vancomycin 1750mg IV every 30 hours. We will empirically continue that regimen Day # 1 of IV Vancomycin/Ceftriaxone antimicrobial therapy during this admission. Plan Vancomycin * Random level of 11.6 mcg/mL is subtherapeutic, however, affirms timing of initiation of dosing at [facility]. * Continue dose of 1750 mg IV every 30 hours * Goal trough level for groin abscess/cellulitis (MARANDA=1): 13 to 30 mcg/mL * Trough or random level ordered for: 04/28/17 prior to the 0800 hours dose Pharmacy will continue to follow and will adjust dose/frequency as necessary. Thank you.
[2017-04-24] MEDS ORDERED: FUROSEMIDE INJ 60 MG in SYRINGE 0 ML IV ONE (16:00)
--- NOTE | 2017-04-24 16:31 | Family Medicine Progress Note ---
Progress Note Date of Service Apr 24, 2017. Subjective Pt evaluation today including: conversation w/ patient, physical exam, chart review, lab review Pain: no discomfort reported this AM PO Intake: tolerating Voiding: no voiding problems This AM pt reports sob. Denies chest pain, n/v, abdominal pain. Denies hx of urinary incontinence Constitutional: No fever, No chills Respiratory: + shortness of breath Cardiovascular: No chest pain Abdomen: No pain, No nausea, No vomiting Male : No dysuria Medications Current Inpatient Medications Medications (Trade) Dose Ordered Sig/Emily Route Start Time Stop Time Status Last Admin Dose Admin Acetaminophen (Tylenol Tab) 650 mg Q4H PRN PO 04/24/17 05:15 05/24/17 05:14 Al Hydrox/Mg Hydrox/Simethicone (Maalox Max Susp) 15 ml Q4H PRN PO 04/24/17 05:15 05/24/17 05:14 Magnesium Hydroxide (Milk Of Magnesia Susp) 30 ml Q12H PRN PO 04/24/17 05:15 05/24/17 05:14 Ondansetron HCl (Zofran Inj) 4 mg Q6H PRN IV 04/24/17 05:15 05/24/17 05:14 Nitroglycerin (Nitrostat Tab) 0.4 mg UD PRN SL 04/24/17 05:15 05/24/17 05:14 Polyethylene (Miralax Powder Packet) 17 gm DAILY PRN PO 04/24/17 05:15 05/24/17 05:14 Allopurinol (Zyloprim Tab) 100 mg QAM PO 04/24/17 09:00 05/24/17 08:59 04/24/17 10:14 100 MG Aspirin (Ecotrin Tab) 81 mg QAM PO 04/24/17 09:00 05/24/17 08:59 04/24/17 10:16 81 MG Bisacodyl (Dulcolax Supp) 10 mg UD PRN LA 04/24/17 05:15 05/24/17 05:14 Carvedilol (Coreg Tab) 9.375 mg BID PO 04/24/17 09:00 05/24/17 08:59 04/24/17 10:17 9.375 MG Fentanyl (Duragesic Patch) 50 mcg Q3D@1730 TD 04/26/17 17:30 05/10/17 17:29 Salmeterol Xinafoate/ Fluticasone (Advair Diskus 500/50 Inh) 1 puff BID INH 04/24/17 09:00 05/24/17 08:59 04/24/17 10:17 1 PUFF Furosemide (Lasix Tab) 60 mg QAM PO 04/24/17 09:00 05/24/17 08:59 04/24/17 10:15 60 MG Gabapentin (Neurontin Cap) 200 mg QAM PO 04/24/17 09:00 05/24/17 08:59 04/24/17 10:14 200 MG Gabapentin (Neurontin Tab) 600 mg HS PO 04/24/17 21:00 05/24/17 20:59 Guaifenesin (Robitussin Sugar Free Syrup) 200 mg Q6H PRN PO 04/24/17 05:15 05/24/17 05:14 Albuterol/ Ipratropium (Combivent Respimat Inh) 1 puffs Q6 INH 04/24/17 12:00 05/24/17 11:59 Isosorbide Mononitrate (Imdur Ext Rel Tab) 60 mg QAM PO 04/24/17 09:00 05/24/17 08:59 04/24/17 10:16 60 MG Losartan Potassium (coZAAR TAB) 25 mg QAM PO 04/24/17 09:00 05/24/17 08:59 04/24/17 10:14 25 MG Oxycodone HCl (Roxicodone Intensol Soln) 20 mg Q4H PRN PO 04/24/17 05:15 05/08/17 05:14 04/24/17 14:04 20 MG Potassium Chloride (Klor-Con Tab) 20 meq QAM PO 04/24/17 09:00 05/24/17 08:59 04/24/17 10:15 20 MEQ Ranitidine HCl (zANTac TAB) 150 mg BID PO 04/24/17 09:00 05/24/17 08:59 04/24/17 10:13 150 MG Rivaroxaban (Xarelto Tab) 20 mg QDD PO 04/24/17 16:30 05/24/17 16:29 Sertraline HCl (Zoloft Tab) 200 mg QAM PO 04/24/17 09:00 05/24/17 08:59 04/24/17 10:14 200 MG Simvastatin (Zocor Tab) 40 mg QPM PO 04/24/17 21:00 05/24/17 20:59 Topiramate (Topamax Tab) 100 mg BID PO 04/24/17 09:00 05/24/17 08:59 04/24/17 10:14 100 MG Albuterol (Proair Hfa) 2 puffs Q6 PRN INH 04/24/17 05:15 05/24/17 05:14 Artificial Tears (Artificial Tears) 2 drops QID PRN OP 04/24/17 05:15 05/24/17 05:14 Miscellaneous (Iv Fluids Completed) 1 ea PRN PRN N/A 04/24/17 06:30 04/24/18 06:29 Amiodarone HCL/ Dextrose 200 ml @ 16.7 mls/hr [id number] IV 04/24/17 14:11 05/24/17 14:10 04/24/17 14:18 16.7 MLS/HR Miscellaneous Information (Consult) 1 ea UD PRN N/A 04/24/17 10:00 05/24/17 09:59 Ceftriaxone Sodium 2000 mg/ Dextrose 70 ml @ 140 mls/hr DAILY@1000 IV 04/24/17 10:00 05/04/17 09:59 04/24/17 12:24 140 MLS/HR Miscellaneous (Fentanyl Patch Remove & Waste) 1 ea Q3D@1729 N/A 04/26/17 17:29 05/26/17 17:28 Miscellaneous Information (Check Fentanyl Patch Placement) 1 ea QS N/A 04/24/17 16:00 05/24/17 15:59 04/24/17 15:12 1 EA Vancomycin HCl 1750 mg/Sodium Chloride 535 ml @ 200 mls/hr Q30H IV 04/24/17 14:00 05/04/17 13:59 04/24/17 13:59 200 MLS/HR Heparin Sodium (Porcine) (Heparin 10 Unit/ ml 5 ml Flush) 5 ml PRN PRN FLUSH 04/24/17 13:45 05/24/17 13:44 04/24/17 15:56 5 ML Objective Vital Signs Date Time Temp Pulse Resp B/P (MAP) Pulse Ox O2 Delivery O2 Flow Rate FiO2 04/24/17 15:33 36.5 82 20 112/72 (85) 100 Nasal Cannula 3.0 04/24/17 12:00 96 Nasal Cannula 4.0 04/24/17 08:00 98 Nasal Cannula 4.0 04/24/17 07:57 36.7 89 18 137/84 100 Nasal Cannula 4.0 04/24/17 07:01 78 22 131/89 100 Nasal Cannula 4.0 04/24/17 06:26 88 20 130/94 100 Nasal Cannula 4.0 04/24/17 04:12 88 20 128/86 96 Nasal Cannula 4.0 04/24/17 02:13 92 20 105/92 98 Nasal Cannula 4.0 04/24/17 01:48 91 28 164/124 100 Nasal Cannula 4.0 04/24/17 01:20 82 04/24/17 01:12 36.9 92 26 144/112 100 Nasal Cannula 4.0 04/24/17 01:12 95 Room Air 04/24/17 01:12 95 Room Air Physical Exam General Appearance: no apparent distress Eyes: normal inspection, sclerae normal Respiratory/Chest: lungs clear, + decreased breath sounds Cardiovascular: + irregularly irregular Abdomen: normal bowel sounds, non tender, soft Extremities: + pertinent finding (2+ LE edema; L BKA) Skin: + pertinent finding (grade 3 decubitus ulcer; L LE wound/dressed; b/l arms scabbed/discolored ) Notes: R sided groin erythema; no TTP Laboratory Results 04/24/17 01:22 Red Blood Count 4.11, Mean Corpuscular Volume 100.2, Mean Corpuscular Hemoglobin 31.4, Mean Corpuscular Hemoglobin Concent 31.3, Mean Platelet Volume 10.2, Neutrophils (%) (Auto) 77.6, Lymphocytes (%) (Auto) 15.0, Monocytes (%) ( Auto) 6.6, Eosinophils (%) (Auto) 0.4, Basophils (%) (Auto) 0.2, Neutrophils # ( Auto) 7.95, Lymphocytes # (Auto) 1.54, Monocytes # (Auto) 0.68, Eosinophils # ( Auto) 0.04, Basophils # (Auto) 0.02 04/24/17 01:22 Test 04/24/17 01:22 04/24/17 01:50 04/24/17 12:14 04/24/17 12:26 White Blood Count 10.25 K/uL (4.8-10.8) Red Blood Count 4.11 M/uL (4.7-6.1) Hemoglobin 12.9 g/dL (14.0-18.0) Hematocrit 41.2 % (42-52) Mean Corpuscular Volume 100.2 fL (80-100) Mean Corpuscular Hemoglobin 31.4 pg (25-34) Mean Corpuscular Hemoglobin Concent 31.3 g/dl (32-36) Platelet Count 266 K/uL (130-400) Mean Platelet Volume 10.2 fL (7.4-10.4) Neutrophils (%) (Auto) 77.6 % Lymphocytes (%) (Auto) 15.0 % Monocytes (%) (Auto) 6.6 % Eosinophils (%) (Auto) 0.4 % Basophils (%) (Auto) 0.2 % Neutrophils # (Auto) 7.95 K/uL (1.4-6.5) Lymphocytes # (Auto) 1.54 K/uL (1.2-3.4) Monocytes # (Auto) 0.68 K/uL (0.11-0.59) Eosinophils # (Auto) 0.04 K/uL (0-0.5) Basophils # (Auto) 0.02 K/uL (0-0.2) RDW Standard Deviation 53.4 fL (36.4-46.3) RDW Coefficient of Variation 14.7 % (11.5-14.5) Immature Granulocyte % (Auto) 0.2 % Immature Granulocyte # (Auto) 0.02 K/uL (0.00-0.02) Prothrombin Time 14.4 SECONDS (9.0-12.0) Prothromb Time International Ratio 1.4 (0.9-1.1) Activated Partial Thromboplast Time 35.5 SECONDS (21.0-31.0) Partial Thromboplastin Ratio 1.4 Anion Gap 8.0 mmol/L (3-11) Estimated GFR () 74.6 Estimated GFR (Non- 64.3 BUN/Creatinine Ratio 11.1 (10-20) Calcium Level 9.2 mg/dl (8.5-10.1) Magnesium Level 2.2 mg/dl (1.8-2.4) Total Bilirubin 0.6 mg/dl (0.2-1) Aspartate Amino Transf (AST/SGOT) 65 U/L (15-37) Alanine Aminotransferase (ALT/SGPT) 22 U/L (12-78) Alkaline Phosphatase 101 U/L (45-117) Total Creatine Kinase 253 U/L (39-308) Creatine Kinase MB 52.9 ng/ml (0.5-3.6) Creatine Kinase MB Ratio 20.9 (0-3.0) Total Protein 8.9 gm/dl (6.4-8.2) Albumin 3.1 gm/dl (3.4-5.0) Globulin 5.8 gm/dl (2.5-4.0) Albumin/Globulin Ratio 0.5 (0.9-2) Bedside Lactic Acid Venous 2.08 mmol/L (0.90-1.70) Bedside Glucose 161 mg/dl (70-99) Random Vancomycin Level 11.6 mcg/ml Test 04/24/17 15:49 Troponin I 15.800 ng/ml (0-0.045) Thyroid Stimulating Hormone (TSH) 0.745 uIu/ml (0.300-4.500) Assessment and Plan 66 [place]F [place], with PMHx of CAD- history of FL, chronic sCHF- EF 25- 30%, VT- AICD placement, gout, prostate CA, COPD, chronic AF, HLD, HTN, factor V Leiden mutation and h/o PE, Renetta's syndrome, severe PAD s/p L BKA, s/p R iliac profundoplasty and stent, chronic troponin elevation, recurrent UTIs, GERD , and anxiety, admitted for dyspnea, and elevated troponin s/p defibrillation from IVCD x 4. Of note: recent admission for proteus/MRSA groin abscess in with continued IV vanc and rocephin treatment. Asymptomatic elevation of troponin: NSTEMI vs. stress cardiac injury from defib discharges vs. acute CHF exacerbation - Trend troponin q8h - Pacer interrogated - torsades vs. Vfib - EKG consistent with Afib, no acute ischemic changes or ectopy - ECHO: EF 25-30%, no new wall motion abnormality, mildly dilated LV with severely reduced SF, mod dil RV w/t severely reduced SF - Cardiology consulted - Continue Amiodarone IV - IV Lasix 60mg - Dr. De will f/u on Wednesday - Monitor electrolytes/BMP Acute on chronic bi-ventricular CHF exacerbation given dyspnea and VO status - CXR L sided worsening pleural effusion, cardiomegaly and moderate volume overload - IV Lasix 60mg one - Continue Lasix 60mg PO daily - monitor electrolytes/BMP COPD with possible exacerbation given dyspnea - Continue home inhaler: advair - Hold inhaler - combivent respimat - Duoneb Q4H R groin MRSA and Proteus mirabilis cellulitis (cultures 03/30/17) s/p R iliac profundoplasty and stent by Dr. Gomez in November 2016 - Continue IV Rocephin + Vancomycin - Wound care consulted for multiple wounds - ID consult - Contact precautions Chronic a.fib, CAD s/p FL, h/o VT w/ AICD, HTN, HLD, PAD, PVD - Continue ASA 81 mg daily, Coreg 9.375 mg daily, Losartan 25 mg daily, Imdur 60 mg daily, Zocor 40 mg HS, Xarelto 20 mg HS Electrolytes - monitor Mag, K closely - Potassium chloride 20meq QAM Chronic pain/neuropathy - Gabapentin 600mg HS and 200mg QAM - Fentanyl 50 mcg patch Q72H - Tylenol 1g BID Migraine - Topiramate 100mg BID - Monitor for non-anion gap metabolic acidosis Anxiety - Continue Zoloft 200 mg daily Gout - Continue Allopurinol 100 mg daily Factor V Leiden mutation and h/o PE - Continue Xarelto 20mg HS Anemia - macrocytic - Hgb stable at baseline - MCV 100 - iron studies done recently - Ordered folate and B12 - Dced ferrous sulfate BID PO GERD, GI prophylaxis - Continue Zantac 150 mg BID DVT prophylaxis: Xarelto Code Status: LEVEL I, FULL Dispo: Bed on hold at [facility] Resident Involvement: Resident Care Provided Care Provided: Adult Hospital Medicine Reviewed: Pt Seen/Exam by Me History Resident Physician Supervision Note: I interviewed and examined the patient. Discussed with Dr. Lo and agree with findings and plan as documented in the note. Any exceptions or clarifications are listed here: Patient reports chronic pain in his leg. Denies chest pain, feels shortness of breath is improved. Troponin is trending upward to 15. He was given IV Lasix this morning by cardiology and he is diuresing. I discussed the case with cardiology today. Vitals reviewed telemetry with sinus with PACs versus A. fib Alert awake oriented, suspicious affect Regular rate and rhythm with extra systole, no murmurs gallops or rubs Lungs with crackles at the bases bilaterally Abdomen positive bowel sounds soft nontender nondistended Extremities with right BKA, left leg with superficial wounds on the anterior tibia, 2+ pitting edema to the knee Patient is a 66-year-old male with a history of paroxysmal atrial fibrillation, CAD, severe biventricular systolic CHF with AICD in place for history of V. fib arrest, PAD, right BKA, COPD with chronic respiratory failure, prostate cancer, factor V Leiden deficiency with history of PE, anxiety and depression, gout, hyperlipidemia, hypertension, UTIs, GERD, and a recent admission for an MRSA and Proteus right groin abscess as well as possible left buttock abscess 3 weeks ago. He is here with episode of his defibrillator firing 5 times for torsades 2 points versus ventricular fibrillation, as well as acute on chronic systolic CHF and acute on chronic hypoxemic respiratory failure. -Continue diuresis -Continue IV amiodarone and awake electrophysiology input on Wednesday as well as formal pacer interrogation -Appreciate cardiology consultation -Trend troponins-unclear if he had a primary cardiac event that caused his V. fib or not, no acute ischemic changes on ECG -Check hemoglobin A1c and order Accu-Cheks with sliding scale insulin for elevated blood sugars -Continue vancomycin and Rocephin for recent MRSA and Proteus growing abscess- appreciate infectious disease consultation -Continues her Route toe for anticoagulation for A. fib and history of PE -Macrocytic anemia-check B12 and folate, patient does admit to drinking alcohol as well but not on a regular basis Documented By: Brandi Lloyd
--- NOTE | 2017-04-24 17:19 | CARDIOLOGY CONSULTATION ---
DATE OF CONSULTATION: 04/24/2017 TIME: 15:12 p.m. CONSULTING PHYSICIAN: Dr. Shayy MD REASON FOR CONSULTATION: ICD shock x5. PRIMARY ASSISTANT NURSE MANAGER: Wero Sarmiento MD HISTORY OF PRESENT ILLNESS: Mr. Valadez is a pleasant 66-year-old gentleman with a history significant for multivessel CAD status post CABG x2 in 2005 at [facility], ischemic cardiomyopathy, hypertension, dyslipidemia, COPD, ventricular fibrillation in May 2006, status post ICD, atrial fibrillation/flutter, and systolic CHF. He is a poor historian. His and eldest daughter are currently present at the bedside. They agree that he typically does have some memory issues; however, they believe that today he is better than usual. When asked what he was doing during his ICD shock, he thinks he may have been in the bathroom but is not sure and does not remember many of the details. [employer] sales promotion representative had received a remote data from his ICD and stated that he had torsades/ventricular fibrillation on 5 separate episodes ranging from 22:30 to midnight last night. Each episode lasted anywhere from 15-20 seconds and the defibrillator shocked each time effectively on the first shock. He came to the Emergency Department and was started on amiodarone. He denies chest pain, palpitations, worsening edema. He states that he has been more short of breath than usual. He does not use supplemental oxygen at [facility], where he resides. His daughter states that he was visibly more short of breath for the past 1-1/2 to 2 weeks. He states that he is short of breath with activity but also at rest and also with orthopnea. He does have significant COPD as well as systolic CHF. His medications are administered via [facility] staff. He believes he maintains a low sodium diet there as well. He is nonambulatory, but does use a wheelchair manually. His daughter states that he was visibly short of breath with this type of activity. Currently, he has no complaint. He denies chest pain, palpitations or shortness of breath with supplemental oxygen in place. He denies any bleeding. REVIEW OF SYSTEMS: As above and review of systems otherwise negative. He denies fevers, chills, nausea, vomiting or diarrhea. He does have a tremor, however. PAST MEDICAL HISTORY: 1. Atrial fibrillation/flutter. 2. Ischemic cardiomyopathy. 3. CAD status post CABG x2 in 2005 at [facility]. 4. Ventricular fibrillation, status post ICD. 5. Hypertension. 6. COPD. 7. Systolic CHF. 8. GERD. 9. Dyslipidemia. 10. Pulmonary embolism. 11. Peripheral arterial disease. 12. Peripheral neuropathy. 13. Prostate cancer. 14. Gout. 15. History of DVT according to records. HOME MEDICATIONS: Include carvedilol 9.375 mg p.o. b.i.d., aspirin 81 mg daily, Xarelto 20 mg daily, simvastatin 40 mg daily, vancomycin IV, potassium chloride 20 mEq p.o. daily, Lasix 60 mg p.o. daily, Neurontin 600 mg at bedtime and 200 mg in the morning, isosorbide mononitrate 60 mg daily, fentanyl 50 mcg patch, ceftriaxone 2 gram IV q. day, and allopurinol. CURRENT INPATIENT MEDICATIONS: Include amiodarone drip per protocol, aspirin 81 mg daily, Xarelto 20 mg daily, carvedilol 9.375 mg p.o. b.i.d., ceftriaxone 2 grams IV daily, fentanyl patch 50 mcg, Lasix 60 mg p.o. daily, gabapentin, isosorbide mononitrate 60 mg daily, losartan 25 mg daily, potassium chloride 20 mEq daily, Zoloft 200 mg daily, Zocor 40 mg daily, vancomycin IV. ALLERGIES: BACITRACIN, MORPHINE, NEOMYCIN, POLYMYXIN B. SOCIAL HISTORY: Continues to smoke but less than a pack per day. No alcohol or drugs. He is currently living at [facility]. He is and his and eldest daughter is present at the bedside. They have a younger daughter as well. He had a son who as a child. 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 FAMILY HISTORY: Unknown. He was adopted. PHYSICAL EXAMINATION: VITAL SIGNS: Temperature 36.7 degrees, heart rate 89 beats per minute, respiration rate 18, blood pressure 137/84 mmHg, oxygen saturation is 100% on 4 liters per nasal cannula. I's and O's are incomplete. Weight 108.6 kg. GENERAL: No acute distress. He is alert. HEENT: Anicteric sclerae. NECK: Thick moreno. Cannot assess JVD. No bruits. Normal carotid upstrokes bilaterally. CARDIAC EXAMINATION: PMI was nonpalpable. There was no ventricular heave, irregular. Normal S1, S2. There were no audible murmurs, rubs or gallops. LUNGS: Decreased breath sounds throughout, otherwise clear. ABDOMEN: Soft, nontender, nondistended. Normoactive bowel sounds. EXTREMITIES: 2+ radial pulses bilaterally. Left BKA. A 1 to 2+ lower extremity edema involving his right lower extremity to the knee. Above his left stump, there is 1+ lower extremity edema. No cyanosis. PSYCHIATRIC: Affect appears appropriate. ECG personally reviewed from 04/24/2017. Possible atrial flutter/fibrillation at 96 beats per minute. IVCD. Inferior infarct. Anterior infarct. Telemetry personally reviewed. No further ventricular arrhythmia. ICD interrogation results are not available for review. Full interrogation to follow. Echocardiogram 04/24/2017 reviewed: Mildly dilated LV with severely reduced systolic function. EF 25% to 30%. Akinesis of the inferior wall, inferolateral wall, and basal septum. Otherwise, global hypokinesis. Right ventricle is moderately dilated with severely reduced systolic function. Moderate left atrial dilation. Mild right atrial dilation. Sclerotic aortic valve without significant stenosis. Mild mitral regurgitation. RVSP 48 mmHg. LABORATORY DATA: Sodium 139, potassium 3.9, BUN 13, creatinine 1.16. Troponin initially 4.76 and trended up to 5.18. Albumin 3.1, AST 65, ALT 22, magnesium 2.2. White blood cell count is 10.25, hemoglobin 12.9, platelets 266. Blood culture is pending. Chest x-ray reported as cardiomegaly with evidence of failure per Radiology. Emphysema. Small left pleural effusion per Radiology. Chest x-ray imaging also personally reviewed. There are increased vascular markings and appears to be fluid in the right fissure with left pleural effusion. ASSESSMENT AND PLAN: 1. Ventricular fibrillation, status post ICD shock: He had 5 episodes per the [employer] sales promotion representative who has received remote interrogation. Agree with the amiodarone IV. The events were discussed with him and his family who are present at the bedside. TSH will be added on today's labs. Etiology could be secondary to his ischemic cardiomyopathy. Could not rule out ongoing ischemia; however, he denies any angina. We will involve electrophysiology on Wednesday when they are available. 2. Acute on chronic systolic congestive heart failure: He appears hypervolemic. We will give a dose of IV Lasix 60 mg. Monitor renal function and electrolytes closely. Could be secondary to overnight event, but he has given a history of worsening shortness of breath over the past 2 weeks. Maintain a low sodium diet, strict I's and O's, and daily weights. 3. Non-ST elevation myocardial infarction: Elevated troponin could be secondary to his ventricular fibrillation arrest overnight with underlying coronary artery disease. He gives no history of angina. Could not rule out that ischemia caused the overnight event at this time. Monitor closely for recurrent issues. Once again, he has not complained of any angina. Monitor troponin levels until they have peaked. If he should develop angina, would consider coronary angiography. He has not had any angina and there is no urgent indication at this time for cardiac catheterization. We did discuss the possibility; however, if one should arise. Continue aspirin. 4. Atrial fibrillation/flutter: He is on Xarelto for anticoagulation purposes. Continue beta russ. He is also now on amiodarone. 5. Coronary artery disease, status post coronary artery bypass grafting x2: No angina. Continue aspirin 81 mg daily. Continue beta russ and statin therapy. Consider high intensity statin therapy if not tried in the past. 6. Amiodarone: Potential side effects/adverse reactions were discussed with family members present including his , but given his ventricular fibrillation, antiarrhythmic therapy is recommended at this time. 7. Disposition: Cardiology will continue to follow. The patient's care has been discussed with Dr. Lloyd of the primary hospitalist service. Highly complex medical issues. ST[facility]AMPTON HOSPITALEliot
[2017-04-24] MEDS: RIVAROXABAN 20 MG TAB PO SCH (17:45)
[2017-04-24] MEDS: ALBUT/IPRATROP 3MG/0.5MG NEB 3 ML VIAL INH SCH ×2 (19:49→23:15)
[2017-04-24] MEDS: GABAPENTIN 600 MG TAB PO SCH (21:31)
[2017-04-24] MEDS: SIMVASTATIN 40 MG TAB PO SCH (21:32)
--- NOTE | 2017-04-24 21:56 | Medical Consult ---
Consultation Date of Consultation: Apr 24, 2017. Attending Physician: Brandi Lloyd MD Reason for Consultation: Right groin abscess with MRSA and Proteus, possible infected graft History of Present Illness 66-year-old male, well known to me from infectious disease follow-up, with history of severe peripheral arterial disease status post left BKA, status post right leg stenting with graft placement, who we have been treating for infection of his right groin with MRSA and Proteus with IV vancomycin and ceftriaxone. [facility] and reportedly was doing well, although his antibiotics had been mistakenly discontinued. He was restarted on vancomycin and ceftriaxone. He also underwent ultrasound of his buttock with finding of large possible developing abscess, surgical consultation was recommended. He is now admitted to the hospital after several discharges of his defibrillator with associated dyspnea and chest pain. He notes no increase in the drainage from his right groin, no report of significant fever. Has been tolerating his antibiotic without apparent difficulty. Cultures are no growth to date. 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 (3) Atrial fibrillation (4) Atrial flutter (5) Benign hypertension (6) Carcinoma of prostate (7) Cellulitis of groin (8) Chronic congestive heart failure (9) Defibrillator discharge (10) Gastroesophageal reflux disease (11) History of - pulmonary embolus (12) Hyperlipidemia (13) Hypoxemia (14) Migraine (15) Sepsis due to pneumonia (16) uti Family History FHx: ischemic heart disease Social History Smoking Status: Former Smoker Drug Use: none Marital Status: Housing Status: longterm Occupation Status: disabled Allergies Coded Allergies: Neomycin (Verified Allergy, Intermediate, RED, SORE, 04/24/17) Bacitracin (Verified Allergy, Unknown, unknown, 04/24/17) Kiwi (Verified Allergy, Unknown, itchy, 04/24/17) Polymyxin B (Verified Allergy, Unknown, unknown, 04/24/17) Morphine (Verified Adverse Reaction, Intermediate, HALLUCINATION, CONFUSION,AGITATION, 04/24/17) Current Inpatient Medications Current Inpatient Medications Medications (Trade) Dose Ordered Sig/Emily Route Start Time Stop Time Status Last Admin Dose Admin Acetaminophen (Tylenol Tab) 650 mg Q4H PRN PO 04/24/17 05:15 05/24/17 05:14 Al Hydrox/Mg Hydrox/Simethicone (Maalox Max Susp) 15 ml Q4H PRN PO 04/24/17 05:15 05/24/17 05:14 Magnesium Hydroxide (Milk Of Magnesia Susp) 30 ml Q12H PRN PO 04/24/17 05:15 05/24/17 05:14 Ondansetron HCl (Zofran Inj) 4 mg Q6H PRN IV 04/24/17 05:15 05/24/17 05:14 Nitroglycerin (Nitrostat Tab) 0.4 mg UD PRN SL 04/24/17 05:15 05/24/17 05:14 Polyethylene (Miralax Powder Packet) 17 gm DAILY PRN PO 04/24/17 05:15 05/24/17 05:14 Allopurinol (Zyloprim Tab) 100 mg QAM PO 04/24/17 09:00 05/24/17 08:59 04/24/17 10:14 100 MG Aspirin (Ecotrin Tab) 81 mg QAM PO 04/24/17 09:00 05/24/17 08:59 04/24/17 10:16 81 MG Bisacodyl (Dulcolax Supp) 10 mg UD PRN ME 04/24/17 05:15 05/24/17 05:14 Carvedilol (Coreg Tab) 9.375 mg BID PO 04/24/17 09:00 05/24/17 08:59 04/24/17 21:31 9.375 MG Fentanyl (Duragesic Patch) 50 mcg Q3D@1730 TD 04/26/17 17:30 05/10/17 17:29 Salmeterol Xinafoate/ Fluticasone (Advair Diskus 500/50 Inh) 1 puff BID INH 04/24/17 09:00 05/24/17 08:59 04/24/17 21:30 1 PUFF Furosemide (Lasix Tab) 60 mg QAM PO 04/24/17 09:00 05/24/17 08:59 04/24/17 10:15 60 MG Gabapentin (Neurontin Cap) 200 mg QAM PO 04/24/17 09:00 05/24/17 08:59 04/24/17 10:14 200 MG Gabapentin (Neurontin Tab) 600 mg HS PO 04/24/17 21:00 05/24/17 20:59 04/24/17 21:31 600 MG Guaifenesin (Robitussin Sugar Free Syrup) 200 mg Q6H PRN PO 04/24/17 05:15 05/24/17 05:14 Isosorbide Mononitrate (Imdur Ext Rel Tab) 60 mg QAM PO 04/24/17 09:00 05/24/17 08:59 04/24/17 10:16 60 MG Losartan Potassium (coZAAR TAB) 25 mg QAM PO 04/24/17 09:00 05/24/17 08:59 04/24/17 10:14 25 MG Oxycodone HCl (Roxicodone Intensol Soln) 20 mg Q4H PRN PO 04/24/17 05:15 05/08/17 05:14 04/24/17 14:04 20 MG Potassium Chloride (Klor-Con Tab) 20 meq QAM PO 04/24/17 09:00 05/24/17 08:59 04/24/17 10:15 20 MEQ Ranitidine HCl (zANTac TAB) 150 mg BID PO 04/24/17 09:00 05/24/17 08:59 04/24/17 21:32 150 MG Rivaroxaban (Xarelto Tab) 20 mg QDD PO 04/24/17 16:30 05/24/17 16:29 04/24/17 17:45 20 MG Sertraline HCl (Zoloft Tab) 200 mg QAM PO 04/24/17 09:00 05/24/17 08:59 04/24/17 10:14 200 MG Simvastatin (Zocor Tab) 40 mg QPM PO 04/24/17 21:00 05/24/17 20:59 04/24/17 21:32 40 MG Topiramate (Topamax Tab) 100 mg BID PO 04/24/17 09:00 05/24/17 08:59 04/24/17 21:31 100 MG Albuterol (Proair Hfa) 2 puffs Q6 PRN INH 04/24/17 05:15 05/24/17 05:14 Artificial Tears (Artificial Tears) 2 drops QID PRN OP 04/24/17 05:15 05/24/17 05:14 Miscellaneous (Iv Fluids Completed) 1 ea PRN PRN N/A 04/24/17 06:30 04/24/18 06:29 Amiodarone HCL/ Dextrose 200 ml @ 16.7 mls/hr [id number] IV 04/24/17 14:11 05/24/17 14:10 04/24/17 17:28 16.7 MLS/HR Miscellaneous Information (Consult) 1 ea UD PRN N/A 04/24/17 10:00 05/24/17 09:59 Ceftriaxone Sodium 2000 mg/ Dextrose 70 ml @ 140 mls/hr DAILY@1000 IV 04/24/17 10:00 05/04/17 09:59 04/24/17 12:24 140 MLS/HR Miscellaneous (Fentanyl Patch Remove & Waste) 1 ea Q3D@1729 N/A 04/26/17 17:29 05/26/17 17:28 Miscellaneous Information (Check Fentanyl Patch Placement) 1 ea QS N/A 04/24/17 16:00 05/24/17 15:59 04/24/17 15:12 1 EA Vancomycin HCl 1750 mg/Sodium Chloride 535 ml @ 200 mls/hr Q30H IV 04/24/17 14:00 05/04/17 13:59 04/24/17 13:59 200 MLS/HR Heparin Sodium (Porcine) (Heparin 10 Unit/ ml 5 ml Flush) 5 ml PRN PRN FLUSH 04/24/17 13:45 05/24/17 13:44 04/24/17 18:16 5 ML Albuterol/ Ipratropium (Duoneb) 3 ml Q4R INH 04/24/17 20:00 05/24/17 19:59 04/24/17 19:49 3 ML Review of Systems All systems were reviewed and are negative except as per HPI Physical Exam Date Time Temp Pulse Resp B/P (MAP) Pulse Ox O2 Delivery O2 Flow Rate FiO2 04/24/17 20:00 96 Nasal Cannula 4.0 04/24/17 19:49 59 16 96 Nasal Cannula 4.0 04/24/17 16:00 96 Nasal Cannula 4.0 04/24/17 15:33 36.5 82 20 112/72 (85) 100 Nasal Cannula 3.0 04/24/17 12:00 96 Nasal Cannula 4.0 04/24/17 08:00 98 Nasal Cannula 4.0 04/24/17 07:57 36.7 89 18 137/84 100 Nasal Cannula 4.0 04/24/17 07:01 78 22 131/89 100 Nasal Cannula 4.0 04/24/17 06:26 88 20 130/94 100 Nasal Cannula 4.0 04/24/17 04:12 88 20 128/86 96 Nasal Cannula 4.0 04/24/17 02:13 92 20 105/92 98 Nasal Cannula 4.0 04/24/17 01:48 91 28 164/124 100 Nasal Cannula 4.0 04/24/17 01:20 82 04/24/17 01:12 36.9 92 26 144/112 100 Nasal Cannula 4.0 04/24/17 01:12 95 Room Air 04/24/17 01:12 95 Room Air General Appearance: WD/WN, no apparent distress, + pertinent finding ( Chronically ill-appearing) Head: normocephalic, atraumatic Eyes: normal inspection, EOMI, sclerae normal ENT: normal ENT inspection, pharynx normal Neck: supple, no adenopathy, thyroid normal, trachea midline Respiratory/Chest: chest non-tender, lungs clear, normal breath sounds, no respiratory distress Cardiovascular: regular rate, rhythm, no gallop, no murmur Abdomen/GI: normal bowel sounds, non tender, soft, no organomegaly Back: normal inspection, no CVA tenderness Extremities/Musculoskelatal: no calf tenderness, + slow capillary refill Neurologic/Psych: alert, oriented x 3 Skin: normal color, no rash, + pertinent finding (Right groin with erythema, no purulent drainage at present) Lymphatic: no adenopathy Laboratory Results Date/Time Source Procedure Growth Status 04/24/17 01:45 Blood Blood Culture Pending Received 04/24/17 01:22 Blood Blood Culture Pending Received Last 24 Hours Test 04/24/17 01:22 04/24/17 01:50 04/24/17 07:45 04/24/17 08:05 White Blood Count 10.25 K/uL Red Blood Count 4.11 M/uL Hemoglobin 12.9 g/dL Hematocrit 41.2 % Mean Corpuscular Volume 100.2 fL Mean Corpuscular Hemoglobin 31.4 pg Mean Corpuscular Hemoglobin Concent 31.3 g/dl Platelet Count 266 K/uL Mean Platelet Volume 10.2 fL Neutrophils (%) (Auto) 77.6 % Lymphocytes (%) (Auto) 15.0 % Monocytes (%) (Auto) 6.6 % Eosinophils (%) (Auto) 0.4 % Basophils (%) (Auto) 0.2 % Neutrophils # (Auto) 7.95 K/uL Lymphocytes # (Auto) 1.54 K/uL Monocytes # (Auto) 0.68 K/uL Eosinophils # (Auto) 0.04 K/uL Basophils # (Auto) 0.02 K/uL RDW Standard Deviation 53.4 fL RDW Coefficient of Variation 14.7 % Immature Granulocyte % (Auto) 0.2 % Immature Granulocyte # (Auto) 0.02 K/uL Prothrombin Time 14.4 SECONDS Prothromb Time International Ratio 1.4 Activated Partial Thromboplast Time 35.5 SECONDS Partial Thromboplastin Ratio 1.4 Sodium Level 139 mmol/L Potassium Level 3.9 mmol/L Chloride Level 107 mmol/L Carbon Dioxide Level 24 mmol/L Anion Gap 8.0 mmol/L Blood Urea Nitrogen 13 mg/dl Creatinine 1.16 mg/dl Estimated GFR () 74.6 Estimated GFR (Non- 64.3 BUN/Creatinine Ratio 11.1 Random Glucose 124 mg/dl Calcium Level 9.2 mg/dl Magnesium Level 2.2 mg/dl Total Bilirubin 0.6 mg/dl Aspartate Amino Transf (AST/SGOT) 65 U/L Alanine Aminotransferase (ALT/SGPT) 22 U/L Alkaline Phosphatase 101 U/L Total Creatine Kinase 253 U/L Creatine Kinase MB 52.9 ng/ml Creatine Kinase MB Ratio 20.9 Troponin I 4.760 ng/ml 5.180 ng/ml Total Protein 8.9 gm/dl Albumin 3.1 gm/dl Globulin 5.8 gm/dl Albumin/Globulin Ratio 0.5 Bedside Lactic Acid Venous 2.08 mmol/L Bedside Glucose 133 mg/dl Test 04/24/17 12:14 04/24/17 12:26 04/24/17 15:49 Bedside Glucose 161 mg/dl Random Vancomycin Level 11.6 mcg/ml Troponin I 15.800 ng/ml Thyroid Stimulating Hormone (TSH) 0.745 uIu/ml Patient Name: PARVEEN DAVIS Unit Number: [id number] Dictated: 04/24/17832 Transcribed: 04/24/17832 EV Printed Date/Time: [~ rep prt dt]/[~ rep prt tm] [~ rep ct labl] - [~ rep ct ivnm] [facility] Radiology Department [place] [id number] Dictated: 04/24/17832 Transcribed: 04/24/17832 EV Printed Date/Time: [~ rep prt dt]/[~ rep prt tm] [~ rep ct labl] - [~ rep ct ivnm] CLINICAL HISTORY: Sepsis. FINDINGS: An AP, portable, upright chest radiograph is compared to study dated 04/07/2017 and correlated with chest CT dated 01/13/2017. The examination is degraded by portable technique and patient rotation. A single lead cardiac AICD is unchanged in position and partially obscures the left upper chest. A right PICC line is again noted. The patient is status post midline sternotomy. The heart is enlarged and there is atherosclerotic calcification of the thoracic aorta. There is pulmonary vascular congestion. Emphysema and chronic interstitial thickening are similar to previous. There is a small left pleural effusion with opacification of the left lung base. No pneumothorax is seen. The skeletal structures are osteopenic. The bony thorax is grossly intact. Surgical clips are noted in the right axilla. IMPRESSION: 1. Cardiomegaly and AICD with evidence of congestive failure. 2. Emphysema. 3. Chronic opacities at the left lung base likely represent scarring/pleural parenchymal change. Correlate clinically for evidence of superimposed pneumonia. 4. A small left pleural effusion is noted. Electronically signed by: Boris Vidales M.D. 04/24/2017 8:36 AM Dictated Date/Time: 04/24/2017 8:33 AM The status of this report is Signed. Draft = Not yet reviewed or approved by Radiologist. Signed = Reviewed and approved by Radiologist. <AttendingPhy>Gustavo Larkin M.D.</AttendingPhy> <FamilyPhy>[facility]</ FamilyPhy> <PrimaryPhy>Sohail Ignacio M.D.</PrimaryPhy> <UnitNumber> [id number]</UnitNumber> <VisitNumber>[id number]</VisitNumber> <PatientName> SUSANPARVEEN D</PatientName> <DateOfBirth>1950</DateOfBirth> <Location> C.MSICU</Location> <ServiceDate>04/24/17</ServiceDate> <MNE>ESINDI</MNE> < OrderingPhy>Fabiola Velasquez D.Olivia</OrderingPhy> <OrderingPhyMNE>f rep ord dr gibson< /OrderingPhyMNE> <DictatingPhyMNE>f rep dict dr gibson</DictatingPhyMNE> <CCListMNE >f rep ct mne</CCListMNE> <AdmittingPhyMNE>f pt admit dr gibson</AdmittingPhyMNE> < AttendingPhyMNE>f pt attend dr gibson</AttendingPhyMNE> <ConsultingPhyMNE>f pt consult dr gibson</ConsultingPhyMNE> <FamilyPhyMNE>f pt fam dr gibson</FamilyPhyMNE> <OtherPhyMNE>f pt other dr gibson</OtherPhyMNE> < PrimaryPhyMNE>f pt prim care dr gibson</PrimaryPhyMNE> <ReferringPhyMNE>f pt referring dr gibson</ReferringPhyMNE> Assessment & Plan 66-year-old male with poorly controlled diabetes mellitus, peripheral arterial disease, with chronic infection of right groin and possible graft infection with MRSA and Proteus, being treated with vancomycin and ceftriaxone. Also with evidence on ultrasound of large buttock collection/possible developing abscess. Patient should continue on IV antibiotics with vancomycin and ceftriaxone, likely will need prolonged course. Would have surgery or wound care evaluate potential need for debridement buttock collection. Will follow.
[2017-04-25] VITALS (12 sets, daily range): BP systolic 106–129; BP diastolic 69–71; PULSE 56–89; TEMP 36.5–36.8; O2SAT 95–100
[2017-04-25] MEDS: ALBUT/IPRATROP 3MG/0.5MG NEB 3 ML VIAL INH SCH ×6 (03:55→22:55)
[2017-04-25] MEDS ORDERED: GLUCOSE 40% GEL 15 GM TUBE PO PRN (07:00)
[2017-04-25] MEDS ORDERED: GLUCAGON FOR INJ 1 MG VIAL SQ PRN (07:00)
[2017-04-25] MEDS: INSULIN ASPART 100 UNITS/ML 3 ML PEN SC SCH ×4 (07:00→20:54)
[2017-04-25] MEDS ORDERED: GLUCOSE 10 TABS/TUBE PO PRN (07:00)
[2017-04-25] MEDS ORDERED: DEXTROSE 50% 50 ML SYR IV PRN (07:00)
[2017-04-25 07:21] LABS: HEMATOCRIT 34.6 % (42-52); HEMOGLOBIN 10.7 g/dL (14.0-18.0); MEAN CELL VOLUME 100.9 fL (80-100); MEAN CORPUSCULAR HEMOGLOBIN 31.2 pg (25-34); MEAN CORPUSCULAR HGB CONC 30.9 g/dl (32-36); MEAN PLATELET VOLUME 10.4 fL (7.4-10.4); PLATELET COUNT 229 K/uL (130-400); RED CELL DISTRIBUTION WIDTH CV 14.9 % (11.5-14.5); RED CELL DISTRIBUTION WIDTH SD 54.3 fL (36.4-46.3)
[2017-04-25 07:58] LABS: CALCIUM 8.9 mg/dl (8.5-10.1); CREATININE 0.95 mg/dl (0.60-1.40); POTASSIUM 3.5 mmol/L (3.5-5.1)
[2017-04-25] MEDS: CHECK FENTANYL PATCH PLACEMENT SCH ×3 (09:00→16:00)
[2017-04-25] MEDS: SERTRALINE HCL 100 MG TAB PO SCH (09:14)
[2017-04-25] MEDS: FLUTICASONE/SALMETEROL (ADVAIR) 500/50 INH 14 PUFF INH SCH ×2 (09:14→20:51)
[2017-04-25] MEDS: RANITIDINE HCL 150 MG TAB PO SCH ×2 (09:14→20:53)
[2017-04-25] MEDS: ALLOPURINOL 100 MG TAB PO SCH (09:14)
[2017-04-25] MEDS: LOSARTAN POTASSIUM 25 MG TAB PO SCH (09:14)
[2017-04-25] MEDS: CARVEDILOL 3.125 MG TAB PO SCH ×2 (09:15→20:52)
[2017-04-25] MEDS: ASPIRIN 81 MG ECTAB PO SCH (09:15)
[2017-04-25] MEDS: GABAPENTIN 100 MG CAP PO SCH (09:15)
[2017-04-25] MEDS: FUROSEMIDE 20 MG TAB PO SCH (09:16)
[2017-04-25] MEDS: ISOSORBIDE MONONITRATE 60 MG TABCR PO SCH (09:16)
[2017-04-25] MEDS: POTASSIUM CHLORIDE 20 MEQ TABCR PO SCH (09:16)
[2017-04-25] MEDS: TOPIRAMATE 100 MG TAB PO SCH ×2 (09:17→20:53)
--- NOTE | 2017-04-25 09:52 | DIAGNOSTIC IMAGING REPORT ---
ABDOMEN AND PELVIS CT WITHOUT CONTRAST CT DOSE: 851.41 mGy.cm HISTORY: Left gluteal fluid collection. ultrasound- large buttock collection/possible abscess TECHNIQUE: Multiaxial CT images of the abdomen and pelvis were performed without contrast. A dose lowering technique was utilized adhering to the principles of ALARA. COMPARISON STUDY: Ultrasound 04/13/[address] 04/06/2017, CTA 05/08/2016. FINDINGS: Trace bilateral pleural effusions with bibasilar subsegmental consolidation. No pneumatosis or pneumoperitoneum identified. Imaged inferior cardiac chambers are moderately enlarged. Pacer leads are noted overlying the right heart. Coronary arterial disease. Left ventricular atypical papillary muscle calcifications are noted. There is minimal marginal nodularity of the liver. Ill-defined low attenuating lesion of the lateral left hepatic lobe measures 11 mm, which is nonspecific and unchanged possibly reflecting a hepatic cyst. Gallbladder is mildly distended with trace pericholecystic fluid. Moderate nonspecific bilateral perinephric edema. Trace fluid is also seen tracking along the pericolic gutters and layering within the dependent pelvis. Spleen and right adrenal gland are unremarkable. Nodularity of the left adrenal gland suggests hyperplasia. Moderate to severe generalized pancreatic atrophy. Area of probable remote scarring involves the inferior pole left kidney. Mild atrophy of the left kidney compared to the right. No renal calculi or hydronephrosis. Rincon catheter is noted within a collapsed urinary bladder lumen. Moderate perivesicular inflammatory stranding. Moderate atherosclerosis of the abdominal aorta with mild fusiform aneurysm dilation measuring 3.0 x 2.9 cm just proximal to the iliac bifurcation. Right common iliac arterial stent graft is noted. No bulky adenopathy identified within the abdomen or pelvis. There is no bowel obstruction or focal bowel wall thickening identified. Moderate stool volume of the rectosigmoid. No evidence of acute diverticulitis. The appendix is not identified. No secondary signs of acute appendicitis. Mild body wall edema is noted throughout. Previously noted fluid collection of the right inguinal region measuring 2.6 cm has decreased in size, now measuring 1.6 x 0.9 cm on image 478 series 3. Left gluteal skin ulceration is noted with ill-defined fluid collection measuring approximately 7.1 x 5.2 cm, previous measuring approximately 5.6 x 5.1 cm and study dated 04/06/2017 1 measured in a similar fashion. There is associated skin thickening suggesting sialitis within this distribution. No subcutaneous or deep tissue air to suggest fasciitis. Inflammatory changes extend into the adjacent gluteal musculature as seen on image 551 series 3 which appears unchanged. Chronic appearing fragmentation is noted within the region of the proximal left hamstring musculature and ischial tuberosity suggesting dystrophic calcifications. Remote bilateral pelvic ring fractures redemonstrated. Degenerative changes of the hips and lower lumbar spine are noted without acute fracture or subluxation. Levoscoliosis of the lumbar spine. No erosive changes to suggest acute osteomyelitis. IMPRESSION: 1. Left gluteal ulcer again seen with ill-defined collection of the left gluteal tissues slightly increased in size from comparison study now measuring up to 7.1 cm, previously measuring up to 5.6 cm when measured in a similar fashion. This suggests focal phlegmon or abscess without well-defined margins. There is likely associated left gluteal musculature myositis and/or phlegmon extension. 2. Decreased size of fluid collection of the right inguinal region as above. 3. Small bilateral pleural effusions with mild diffuse body wall edema and trace abdominal pelvic ascites suggest fluid overload. 4. Subsegmental bibasilar consolidative opacities suggest atelectasis or pneumonitis. 5. Mild gallbladder distention with pericholecystic edema, likely also related to aforementioned sequela of fluid overload. Correlate with clinical exam. 6. Additional findings as above. Electronically signed by: Ricardo Saunders M.D. 04/25/2017 9:50 AM Dictated Date/Time: 04/25/2017 9:32 AM
--- NOTE | 2017-04-25 10:49 | Family Medicine Progress Note ---
Progress Note Date of Service Apr 25, 2017. Subjective Pt evaluation today including: conversation w/ patient, physical exam, chart review, lab review Pain: denies any discomfort this AM PO Intake: tolerating Voiding: aldrich catheter in place This AM pt reports improvement in sob and denies any discomfort Constitutional: No fever, No chills Respiratory: + shortness of breath Cardiovascular: No chest pain Abdomen: No pain, No nausea, No vomiting Male : No dysuria Medications Current Inpatient Medications Medications (Trade) Dose Ordered Sig/Emily Route Start Time Stop Time Status Last Admin Dose Admin Acetaminophen (Tylenol Tab) 650 mg Q4H PRN PO 04/24/17 05:15 05/24/17 05:14 Al Hydrox/Mg Hydrox/Simethicone (Maalox Max Susp) 15 ml Q4H PRN PO 04/24/17 05:15 05/24/17 05:14 Magnesium Hydroxide (Milk Of Magnesia Susp) 30 ml Q12H PRN PO 04/24/17 05:15 05/24/17 05:14 Ondansetron HCl (Zofran Inj) 4 mg Q6H PRN IV 04/24/17 05:15 05/24/17 05:14 Nitroglycerin (Nitrostat Tab) 0.4 mg UD PRN SL 04/24/17 05:15 05/24/17 05:14 Polyethylene (Miralax Powder Packet) 17 gm DAILY PRN PO 04/24/17 05:15 05/24/17 05:14 Allopurinol (Zyloprim Tab) 100 mg QAM PO 04/24/17 09:00 05/24/17 08:59 04/25/17 09:14 100 MG Aspirin (Ecotrin Tab) 81 mg QAM PO 04/24/17 09:00 05/24/17 08:59 04/25/17 09:15 81 MG Bisacodyl (Dulcolax Supp) 10 mg UD PRN [place] 04/24/17 05:15 05/24/17 05:14 Carvedilol (Coreg Tab) 9.375 mg BID PO 04/24/17 09:00 05/24/17 08:59 04/25/17 09:15 9.375 MG Fentanyl (Duragesic Patch) 50 mcg Q3D@1730 TD 04/26/17 17:30 05/10/17 17:29 Salmeterol Xinafoate/ Fluticasone (Advair Diskus 500/50 Inh) 1 puff BID INH 04/24/17 09:00 05/24/17 08:59 04/25/17 09:14 1 PUFF Gabapentin (Neurontin Cap) 200 mg QAM PO 04/24/17 09:00 05/24/17 08:59 04/25/17 09:15 200 MG Gabapentin (Neurontin Tab) 600 mg HS PO 04/24/17 21:00 05/24/17 20:59 04/24/17 21:31 600 MG Guaifenesin (Robitussin Sugar Free Syrup) 200 mg Q6H PRN PO 04/24/17 05:15 05/24/17 05:14 Isosorbide Mononitrate (Imdur Ext Rel Tab) 60 mg QAM PO 04/24/17 09:00 05/24/17 08:59 04/25/17 09:16 60 MG Losartan Potassium (coZAAR TAB) 25 mg QAM PO 04/24/17 09:00 05/24/17 08:59 04/25/17 09:14 25 MG Oxycodone HCl (Roxicodone Intensol Soln) 20 mg Q4H PRN PO 04/24/17 05:15 05/08/17 05:14 04/24/17 23:07 20 MG Potassium Chloride (Klor-Con Tab) 20 meq QAM PO 04/24/17 09:00 05/24/17 08:59 04/25/17 09:16 20 MEQ Ranitidine HCl (zANTac TAB) 150 mg BID PO 04/24/17 09:00 05/24/17 08:59 04/25/17 09:14 150 MG Rivaroxaban (Xarelto Tab) 20 mg QDD PO 04/24/17 16:30 05/24/17 16:29 04/24/17 17:45 20 MG Sertraline HCl (Zoloft Tab) 200 mg QAM PO 04/24/17 09:00 05/24/17 08:59 04/25/17 09:14 200 MG Simvastatin (Zocor Tab) 40 mg QPM PO 04/24/17 21:00 05/24/17 20:59 04/24/17 21:32 40 MG Topiramate (Topamax Tab) 100 mg BID PO 04/24/17 09:00 05/24/17 08:59 04/25/17 09:17 100 MG Albuterol (Proair Hfa) 2 puffs Q6 PRN INH 04/24/17 05:15 05/24/17 05:14 Artificial Tears (Artificial Tears) 2 drops QID PRN OP 04/24/17 05:15 05/24/17 05:14 Miscellaneous (Iv Fluids Completed) 1 ea PRN PRN N/A 04/24/17 06:30 04/24/18 06:29 Amiodarone HCL/ Dextrose 200 ml @ 16.7 mls/hr [id number] IV 04/24/17 14:11 05/24/17 14:10 04/24/17 17:28 16.7 MLS/HR Miscellaneous Information (Consult) 1 ea UD PRN N/A 04/24/17 10:00 05/24/17 09:59 Ceftriaxone Sodium 2000 mg/ Dextrose 70 ml @ 140 mls/hr DAILY@1000 IV 04/24/17 10:00 05/04/17 09:59 04/24/17 12:24 140 MLS/HR Miscellaneous (Fentanyl Patch Remove & Waste) 1 ea Q3D@1729 N/A 04/26/17 17:29 05/26/17 17:28 Miscellaneous Information (Check Fentanyl Patch Placement) 1 ea QS N/A 04/24/17 16:00 05/24/17 15:59 04/25/17 09:00 1 EA Vancomycin HCl 1750 mg/Sodium Chloride 535 ml @ 200 mls/hr Q30H IV 04/24/17 14:00 05/04/17 13:59 04/24/17 13:59 200 MLS/HR Heparin Sodium (Porcine) (Heparin 10 Unit/ ml 5 ml Flush) 5 ml PRN PRN FLUSH 04/24/17 13:45 05/24/17 13:44 04/24/17 18:16 5 ML Albuterol/ Ipratropium (Duoneb) 3 ml Q4R INH 04/24/17 20:00 05/24/17 19:59 04/25/17 07:06 3 ML Insulin Aspart (novoLOG ASPART) SLIDING SCALE G... ACHS SC 04/25/17 07:00 05/25/17 06:59 Glucose (Glucose 40% Gel) 15-30 GRAMS 15 GRAMS... UD PRN PO 04/25/17 07:00 05/25/17 06:59 Glucose (Glucose Chew Tab) 4-8 Tablets 4 Tabl... UD PRN PO 04/25/17 07:00 05/25/17 06:59 Dextrose (Dextrose 50% 50ML Syringe) 25-50ML OF 50% DW IV FOR... UD PRN IV 04/25/17 07:00 05/25/17 06:59 Glucagon (Glucagon Inj) 1 mg UD PRN SQ 04/25/17 07:00 05/25/17 06:59 Furosemide 40 mg/ Syringe 4 ml @ 4 mls/min BID17 IV 04/25/17 17:00 05/25/17 16:59 Furosemide 40 mg/ Syringe 4 ml @ 4 mls/min 1100 ONCE IV 04/25/17 11:00 04/25/17 11:01 Objective Vital Signs Date Time Temp Pulse Resp B/P (MAP) Pulse Ox O2 Delivery O2 Flow Rate FiO2 04/25/17 08:46 36.5 56 16 108/71 (83) 99 Nasal Cannula 4.0 04/25/17 08:00 Nasal Cannula 4.0 04/25/17 07:06 61 16 100 Nasal Cannula 4.0 04/25/17 05:45 36.6 65 18 106/69 (81) 100 Nasal Cannula 4.0 04/25/17 04:00 96 Nasal Cannula 4.0 04/25/17 03:35 64 16 98 Nasal Cannula 4.0 04/25/17 00:00 96 Nasal Cannula 4.0 04/24/17 23:15 59 16 99 Nasal Cannula 4.0 04/24/17 20:00 96 Nasal Cannula 4.0 04/24/17 19:49 59 16 96 Nasal Cannula 4.0 04/24/17 16:00 96 Nasal Cannula 4.0 04/24/17 15:33 36.5 82 20 112/72 (85) 100 Nasal Cannula 3.0 04/24/17 12:00 96 Nasal Cannula 4.0 Physical Exam General Appearance: no apparent distress Eyes: normal inspection, sclerae normal Respiratory/Chest: + decreased breath sounds, + crackles (bibasilar crackles) Cardiovascular: + pertinent finding (irregular rhythm, reg rate) Abdomen: normal bowel sounds, non tender, soft Extremities: + pertinent finding (LEs TTP, 2+ edema; L BKA; L gluteal crest 5- 8cm ulcer down to subQ tissue with no palpable fluctuance/induration) Neurologic/Psychiatric: alert Skin: + pertinent finding (R toe and lateral foot wounds; L behind stump 5cm lac with granulation tissue) Laboratory Results 04/25/17 06:31 04/25/17 06:31 Test 04/24/17 12:14 04/24/17 12:26 04/24/17 15:49 04/25/17 06:31 Bedside Glucose 161 mg/dl (70-99) Random Vancomycin Level 11.6 mcg/ml Thyroid Stimulating Hormone (TSH) 0.745 uIu/ml (0.300-4.500) Red Blood Count 3.43 M/uL (4.7-6.1) Mean Corpuscular Volume 100.9 fL (80-100) Mean Corpuscular Hemoglobin 31.2 pg (25-34) Mean Corpuscular Hemoglobin Concent 30.9 g/dl (32-36) RDW Standard Deviation 54.3 fL (36.4-46.3) RDW Coefficient of Variation 14.9 % (11.5-14.5) Mean Platelet Volume 10.4 fL (7.4-10.4) Anion Gap 10.0 mmol/L (3-11) Est Creatinine Clear Calc Drug Dose 93.3 ml/min Estimated GFR () 94.9 Estimated GFR (Non- 81.9 BUN/Creatinine Ratio 19.1 (10-20) Calcium Level 8.9 mg/dl (8.5-10.1) Magnesium Level 2.2 mg/dl (1.8-2.4) Troponin I 22.900 ng/ml (0-0.045) Vitamin B12 Level 639 pg/mL (211-911) Folate 10.78 ng/mL (>5.38) Assessment and Plan 66 yoF from [facility], with PMHx of CAD bypass x 2 - history of AK, chronic sCHF- EF 25-30%, VT- AICD placement, gout, prostate CA, COPD, chronic AF, HLD, HTN, factor V Leiden mutation and h/o PE, Renetta's syndrome, severe PAD s/p L BKA, s/p R iliac profundoplasty and stent, chronic troponin elevation, recurrent UTIs, GERD, and anxiety, admitted for dyspnea, and elevated troponin s /p defibrillation from IVCD x 5. Of note: recent admission for proteus/MRSA groin abscess in 03/22 with continued IV vanc and rocephin treatment. Asymptomatic elevation of troponin: consistent with Ischemia due to Afib for which defib discharged - troponin downtrended to 16.8 from peak of 28.5 - Pacer interrogated - torsades vs. Vfib - EKG consistent with Afib, no acute ischemic changes or ectopy - ECHO: EF 25-30%, no new wall motion abnormality, mildly dilated LV with severely reduced SF, mod dil RV w/t severely reduced SF - Cardiology consulted - Continue Amiodarone IV - IV Lasix 60mg - Dr. De will f/u on Wednesday and interrogate defibrillator - Family not agreeable to Cardiac Cath due to poor health at this time - Monitor electrolytes/BMP Acute on chronic bi-ventricular CHF exacerbation given dyspnea and VO status - CXR L sided worsening pleural effusion, cardiomegaly and moderate volume overload - IV Lasix 60mg one - Started on Lasix 40mg IV BID - monitor electrolytes/BMP R groin MRSA and Proteus mirabilis cellulitis (cultures 03/30/17) s/p R iliac profundoplasty and stent by Dr. Gomez in November 2016 and L buttock collection/ abscess - CT abdomen and pelvis w/ot contrast: no acute osteomyelitis, L gluteal ulcer increased in size to 7.1 & 5.6cm ill defined margins focal phlegmon/abscess; R inguinal fluid collection decreased; small b/l pleural effusion, bibasilar opacity - atelectasis/pneumonitis, trace abdominal/pelvis ascites (fluid overload); pericholecystic edema/gallbladder distension - US 04/13 - complex heterogenous collection L buttock region 7 [id number] consistent with hematoma/abscess - CT 04/06 2.5cm hematoma/abscess R groin and L posterior though subq fat 8 X5 no evidence of osteo - Continue IV Rocephin + Vancomycin for 4 weeks - Wound care consulted for multiple wounds - ID consult - Surgery consulted for L buttock collection possible debridement - Contact precautions COPD with possible exacerbation - improved dyspnea - Continue home inhaler: advair - Hold inhaler - combivent respimat - Duoneb Q4H Chronic a.fib, CAD s/p AK, h/o VT w/ AICD, HTN, HLD, PAD, PVD - Continue ASA 81 mg daily, Coreg 9.375 mg daily (can titrate up to 25mg BP allowing per cards), Losartan 25 mg daily (can titrate up to 100 BP allowing per cards), Imdur 60 mg daily, Zocor 40 mg HS, Xarelto 20 mg HS Electrolytes - monitor Mag, K closely - Potassium chloride 20meq QAM - Received 40meq KCL for K of 3.5 this AM Chronic pain/neuropathy - Gabapentin 600mg HS and 200mg QAM - Fentanyl 50 mcg patch Q72H - Tylenol 1g BID Migraine - Topiramate 100mg BID - Monitor for anion gap metabolic acidosis Anxiety - Continue Zoloft 200 mg daily Gout - Continue Allopurinol 100 mg daily Factor V Leiden mutation and h/o PE - Continue Xarelto 20mg HS Anemia - macrocytic - Hgb stable at baseline - MCV 100 - iron studies done recently - Ordered folate and B12 nl - Dced ferrous sulfate BID PO - recommend outpt heme consult GERD, GI prophylaxis - Continue Zantac 150 mg BID DVT prophylaxis: Xarelto Code Status: LEVEL I, FULL Dispo: Bed on hold at [facility] Resident Involvement: Resident Care Provided Care Provided: Adult Hospital Medicine Reviewed: Pt Seen/Exam by Me History Resident Physician Supervision Note: I interviewed and examined the patient. Discussed with Dr. Lo and agree with findings and plan as documented in the note. Any exceptions or clarifications are listed here: No changes overnight. CT Pelvis images personally reviewed today, consulted Gen SUrgery about opinion on left buttocks phlegmon. Afebrile. No CP, less SOB, diuresing. Trop trended up to 28 and now back down again Vitals reviewed Alert awake oriented, suspicious affect Regular rate and rhythm with extra systole, no murmurs gallops or rubs Lungs with crackles at the bases bilaterally Abdomen positive bowel sounds soft nontender nondistended Extremities with right BKA, left leg with superficial wounds on the anterior tibia, 2+ pitting edema to the knee Skin: left buttock with large approx 7 cm stage 3 decub ulcer, no fluctuance Patient is a 66-year-old male with a history of paroxysmal atrial fibrillation on Xarelto, CAD, severe biventricular systolic CHF with AICD in place for history of V. fib arrest, PAD, right BKA, COPD with chronic respiratory failure , prostate cancer, factor V Leiden deficiency with history of PE, anxiety and depression, gout, hyperlipidemia, hypertension, UTIs, GERD, and a recent admission for an MRSA and Proteus right groin abscess as well as possible left buttock abscess 3 weeks ago. He is here with episode of his defibrillator firing 5 times for torsades versus ventricular fibrillation secondary to ACS/AK , as well as acute on chronic systolic CHF and acute on chronic hypoxemic respiratory failure. -Continue diuresis -Continue IV amiodarone and awake electrophysiology input on Wednesday as well as formal pacer interrogation -Appreciate cardiology consultation -continue meds for CAD-ASA, statin, losartan, COreg, isosorbide -Trend troponins-peaked at 28 -Checking hemoglobin A1c and order Accu-Cheks with sliding scale insulin for elevated blood sugars -Continue vancomycin and Rocephin for recent MRSA and Proteus growing abscess- appreciate infectious disease consultation -Continues Xarelto for anticoagulation for A. fib and history of PE -Macrocytic anemia- B12 and folate normal, patient does admit to drinking alcohol as well but not on a regular basis, could be MDS but other cell lines fine at this time, no need for Heme referral -Left buttocks decub and possible abscess/phlegmon -consult Surgery Documented By: Brandi Lloyd
[2017-04-25] MEDS ORDERED: FUROSEMIDE INJ 40 MG in SYRINGE 0 ML IV ONE (11:00)
[2017-04-25] MEDS ORDERED: POTASSIUM CHLORIDE 20 MEQ/15 ML UDC PO STA (11:12)
[2017-04-25] MEDS: CEFTRIAXONE SOD INJ 2000 MG in DEXTROSE 5% 50ML IV SCH (11:17)
--- NOTE | 2017-04-25 12:59 | CARDIOLOGY PROGRESS NOTE ---
DATE: 04/25/2017 TIME: 10:32 a.m. SUBJECTIVE: He denies chest pain, shortness of breath, syncope, near syncope or palpitations. He is a poor historian. His was contacted via telephone to update her on cardiology issues. She has stated that she is leaning against pursuing invasive measures as far as cardiac catheterization if it is felt to be appropriate at some point. She continues to have discussions with the family and the patient. OBJECTIVE: VITAL SIGNS: Temperature 36.5 degrees, heart rate 56 beats per minute, respiration rate 16, blood pressure 108/71 mmHg, oxygen saturation 99% on 4 liters per nasal cannula. I's and O's positive 283 mL GENERAL: In no acute distress. He is alert. NECK: Thick moreno. CARDIAC EXAM: No ventricular heave. Regular, normal S1, S2. No audible murmurs, rubs or gallops. LUNGS: Decreased breath sounds throughout, but clear. ABDOMEN: Soft, nontender, nondistended. Normoactive bowel sounds. EXTREMITIES: No cyanosis. Left BKA, 2+ right lower extremity edema to the knee and 1+ above the knee. Left lower extremity stump 1+ lower extremity edema. PSYCHIATRIC: Blunted affect. MEDICATIONS: Include aspirin 81 mg daily, amiodarone drip, carvedilol 9.375 mg p.o. b.i.d., ceftriaxone 2 grams IV daily, fentanyl patch 50 mcg, Lasix 60 mg p.o. daily, isosorbide mononitrate 60 mg daily, losartan 25 mg daily, Xarelto 20 mg daily, simvastatin 40 mg daily, and vancomycin 1.75 grams IV q.30 hours. Telemetry personally reviewed. No ventricular arrhythmia. Sinus rhythm. Chart reviewed. CT scan of the abdomen and pelvis report reviewed performed today: Left gluteal ulcer with ill-defined collection left gluteal tissues increased in size from comparison study now measuring 7.1 cm suggesting focal phlegmon or abscess. Likely associated left gluteal musculature myositis and/or phlegmon extension. Small bilateral pleural effusions. Trace abdominal pelvic ascites. Subsegmental bibasilar consolidative opacities. DATA: Sodium 142, potassium 3.5, BUN 18, creatinine 0.95. Peak troponin was 28.5. TSH 0.745. White blood cell count 7.8, hemoglobin 10.7, platelets 229. ASSESSMENT AND PLAN: 1. Ventricular fibrillation, status post ICD shock x5: Continue amiodarone IV for today, will consider changing to p.o. tomorrow. We will have electrophysiology formally interrogate the ICD tomorrow and give any input from electrophysiology standpoint. Concerning that his ventricular fibrillation arrest may have been ischemic in origin given his myocardial infarction. 2. Acute on chronic systolic congestive heart failure: We will discontinue Lasix p.o. and give Lasix 40 mg IV twice daily. Would aim for a net negative fluid balance of approximately 1 liter in 24 hours. Low sodium diet, strict I's and O's and daily weight is recommended. 3. Non-ST elevation myocardial infarction: He has underlying coronary disease and has had bypass surgery in the past. His , Carolina, is leaning against pursuing coronary angiography, but she continues to discuss it with him. He does not have much opinion on the matter and deferred to his . Continue aspirin 81 mg daily. Continue statin therapy and beta russ. He denies any angina. He does have ongoing infectious issues as well which could complicate things if invasive measures are performed. We will continue to consider risks/benefits. 4. Atrial fibrillation/flutter: He is on Xarelto for anticoagulation purpose. Continue beta russ. He appears to be in sinus rhythm currently. 5. Coronary artery disease status post coronary artery bypass graft x2: No angina. Continue antiplatelet therapy as well as beta russ and statin therapy. Consider high intensity statin therapy if no issues in the past. 6. Cardiomyopathy: He has severely reduced systolic function with ICD in place. Continue carvedilol and losartan. If not attempted in the past, could attempt further titration of these medications as tolerated. 7. Disposition: Cardiology will continue to follow.
--- NOTE | 2017-04-25 13:55 | Surgery Consultation ---
Consultation Date of Consultation: Apr 25, 2017. Attending Physician: Brandi Lloyd MD History of Present Illness pt from [facility] with extensive past medical history. recent ct scan shows ? abcess left buttock. surgery asked to evaluate. pt has know stage 3 decub ulcer over the area which is painful. no drainage. Past Medical/Surgical History Medical Problems: (1) Acute exacerbation of chronic low back pain Status: Acute (2) Cellulitis of right lower extremity Status: Acute (3) Fall Status: Acute (4) Pressure ulcer Status: Acute (5) Pulmonary edema Status: Acute (6) Torsades de pointes Status: Acute (7) Wound infection Status: Acute Family History FHx: ischemic heart disease Social History Smoking Status: Former Smoker Drug Use: none Housing Status: senior living Occupation Status: disabled Allergies Coded Allergies: Neomycin (Verified Allergy, Intermediate, RED, SORE, 04/24/17) Bacitracin (Verified Allergy, Unknown, unknown, 04/24/17) Kiwi (Verified Allergy, Unknown, itchy, 04/24/17) Polymyxin B (Verified Allergy, Unknown, unknown, 04/24/17) Morphine (Verified Adverse Reaction, Intermediate, HALLUCINATION, CONFUSION,AGITATION, 04/24/17) Home Medications Scheduled Acetaminophen (Tylenol), 1,000 MG PO BID Allopurinol (Zyloprim), 100 MG PO QAM Aspirin (Aspirin Ec), 81 MG PO QAM Carvedilol (Carvedilol), 9.375 MG PO BID Ceftriaxone Sod (Rocephin), 2 GM IV QD Fentanyl (Fentanyl), 50 MCG TD [id number] Ferrous Sulfate (Ferrous Sulfate), 325 MG PO BID Fluticasone Prop/Salmeterol (Advair Diskus 500/50 60 Dose), 1 PUFFS INH BID Furosemide (Lasix), 60 MG PO QAM Gabapentin (Neurontin), 200 MG PO QAM Gabapentin (Neurontin), 600 MG PO HS Ipratropium-Albuterol (Combivent Respimat), 1 PUFFS INH Q6H Isosorbide Mononitrate Ext Rel (Imdur Ext Rel), 60 MG PO QAM Losartan Potassium (Cozaar), 25 MG PO QAM Potassium Chloride (Micro-K Ext Rel), 20 MEQ PO QAM Ranitidine Hcl (Zantac), 150 MG PO BID Rivaroxaban (Xarelto), 20 MG PO HS Sertraline (Zoloft), 200 MG PO QAM Simvastatin (Zocor), 40 MG PO QPM Sodium Phosphate/Biphosphate (Fleet Enema), 1 EA SC DAILY Topiramate (Topamax), 100 MG PO BID Vancomycin HCl in Sodium Chlor (VANCOMYCIN in NSS), 1,750 MG IV Q30 HOURS Scheduled PRN Acetaminophen Tab (Tylenol), 650 MG PO Q6H PRN for Pain Albuterol Sulfate (Proair Respiclick), 2 PUFFS INH Q6 PRN for SOB/Wheezing Aluminum/Magnesium/Simeth (Maalox Max Susp), 30 ML PO Q6 PRN for DYSPEPSIA Artificial Tear Solution (Artificial Tears), 2 DROPS OP QID PRN for DRY EYES Bisacodyl (Dulcolax), 1 SUPP SC UD PRN for Constipation Guaifenesin (Robitussin), 10 ML PO Q6H PRN for Cough Magnesium Hydroxide (Milk Of Magnesia), 30 ML PO for Constipation Oxycodone HCl (Oxycodone HCl), 20 MG PO Q4H PRN for UD Polyvinyl Alcohol (Artificial Tears), 2 DROPS OPB QID PRN for DRYNESS White Petrolatum-Mineral Oil (Genteal Tears Night-Time), 1 DOSE OPB DAILY PRN for DRYNESS Miscellaneous Medications Prune Juice (Prune Juice ), 8 OZ PO Current Inpatient Medications Current Inpatient Medications Medications (Trade) Dose Ordered Sig/Emily Route Start Time Stop Time Status Last Admin Dose Admin Acetaminophen (Tylenol Tab) 650 mg Q4H PRN PO 04/24/17 05:15 05/24/17 05:14 Al Hydrox/Mg Hydrox/Simethicone (Maalox Max Susp) 15 ml Q4H PRN PO 04/24/17 05:15 05/24/17 05:14 Magnesium Hydroxide (Milk Of Magnesia Susp) 30 ml Q12H PRN PO 04/24/17 05:15 05/24/17 05:14 Ondansetron HCl (Zofran Inj) 4 mg Q6H PRN IV 04/24/17 05:15 05/24/17 05:14 Nitroglycerin (Nitrostat Tab) 0.4 mg UD PRN SL 04/24/17 05:15 05/24/17 05:14 Polyethylene (Miralax Powder Packet) 17 gm DAILY PRN PO 04/24/17 05:15 05/24/17 05:14 Allopurinol (Zyloprim Tab) 100 mg QAM PO 04/24/17 09:00 05/24/17 08:59 04/25/17 09:14 100 MG Aspirin (Ecotrin Tab) 81 mg QAM PO 04/24/17 09:00 05/24/17 08:59 04/25/17 09:15 81 MG Bisacodyl (Dulcolax Supp) 10 mg UD PRN SC 04/24/17 05:15 05/24/17 05:14 Carvedilol (Coreg Tab) 9.375 mg BID PO 04/24/17 09:00 05/24/17 08:59 04/25/17 09:15 9.375 MG Fentanyl (Duragesic Patch) 50 mcg Q3D@1730 TD 04/26/17 17:30 05/10/17 17:29 Salmeterol Xinafoate/ Fluticasone (Advair Diskus 500/50 Inh) 1 puff BID INH 04/24/17 09:00 05/24/17 08:59 04/25/17 09:14 1 PUFF Gabapentin (Neurontin Cap) 200 mg QAM PO 04/24/17 09:00 05/24/17 08:59 04/25/17 09:15 200 MG Gabapentin (Neurontin Tab) 600 mg HS PO 04/24/17 21:00 05/24/17 20:59 04/24/17 21:31 600 MG Guaifenesin (Robitussin Sugar Free Syrup) 200 mg Q6H PRN PO 04/24/17 05:15 05/24/17 05:14 Isosorbide Mononitrate (Imdur Ext Rel Tab) 60 mg QAM PO 04/24/17 09:00 05/24/17 08:59 04/25/17 09:16 60 MG Losartan Potassium (coZAAR TAB) 25 mg QAM PO 04/24/17 09:00 05/24/17 08:59 04/25/17 09:14 25 MG Oxycodone HCl (Roxicodone Intensol Soln) 20 mg Q4H PRN PO 04/24/17 05:15 05/08/17 05:14 04/24/17 23:07 20 MG Potassium Chloride (Klor-Con Tab) 20 meq QAM PO 04/24/17 09:00 05/24/17 08:59 04/25/17 09:16 20 MEQ Ranitidine HCl (zANTac TAB) 150 mg BID PO 04/24/17 09:00 05/24/17 08:59 04/25/17 09:14 150 MG Rivaroxaban (Xarelto Tab) 20 mg QDD PO 04/24/17 16:30 05/24/17 16:29 04/24/17 17:45 20 MG Sertraline HCl (Zoloft Tab) 200 mg QAM PO 04/24/17 09:00 05/24/17 08:59 04/25/17 09:14 200 MG Simvastatin (Zocor Tab) 40 mg QPM PO 04/24/17 21:00 05/24/17 20:59 04/24/17 21:32 40 MG Topiramate (Topamax Tab) 100 mg BID PO 04/24/17 09:00 05/24/17 08:59 04/25/17 09:17 100 MG Albuterol (Proair Hfa) 2 puffs Q6 PRN INH 04/24/17 05:15 05/24/17 05:14 Artificial Tears (Artificial Tears) 2 drops QID PRN OP 04/24/17 05:15 05/24/17 05:14 Miscellaneous (Iv Fluids Completed) 1 ea PRN PRN N/A 04/24/17 06:30 04/24/18 06:29 Amiodarone HCL/ Dextrose 200 ml @ 16.7 mls/hr [id number] IV 04/24/17 14:11 05/24/17 14:10 04/24/17 17:28 16.7 MLS/HR Miscellaneous Information (Consult) 1 ea UD PRN N/A 04/24/17 10:00 05/24/17 09:59 Ceftriaxone Sodium 2000 mg/ Dextrose 70 ml @ 140 mls/hr DAILY@1000 IV 04/24/17 10:00 05/04/17 09:59 04/25/17 11:17 140 MLS/HR Miscellaneous (Fentanyl Patch Remove & Waste) 1 ea Q3D@1729 N/A 04/26/17 17:29 05/26/17 17:28 Miscellaneous Information (Check Fentanyl Patch Placement) 1 ea QS N/A 04/24/17 16:00 05/24/17 15:59 04/25/17 09:00 1 EA Vancomycin HCl 1750 mg/Sodium Chloride 535 ml @ 200 mls/hr Q30H IV 04/24/17 14:00 05/04/17 13:59 04/24/17 13:59 200 MLS/HR Heparin Sodium (Porcine) (Heparin 10 Unit/ ml 5 ml Flush) 5 ml PRN PRN FLUSH 04/24/17 13:45 05/24/17 13:44 04/25/17 12:10 5 ML Albuterol/ Ipratropium (Duoneb) 3 ml Q4R INH 04/24/17 20:00 05/24/17 19:59 04/25/17 11:50 3 ML Insulin Aspart (novoLOG ASPART) SLIDING SCALE G... ACHS SC 04/25/17 07:00 05/25/17 06:59 Glucose (Glucose 40% Gel) 15-30 GRAMS 15 GRAMS... UD PRN PO 04/25/17 07:00 05/25/17 06:59 Glucose (Glucose Chew Tab) 4-8 Tablets 4 Tabl... UD PRN PO 04/25/17 07:00 05/25/17 06:59 Dextrose (Dextrose 50% 50ML Syringe) 25-50ML OF 50% DW IV FOR... UD PRN IV 04/25/17 07:00 05/25/17 06:59 Glucagon (Glucagon Inj) 1 mg UD PRN SQ 04/25/17 07:00 05/25/17 06:59 Furosemide 40 mg/ Syringe 4 ml @ 4 mls/min BID17 IV 04/25/17 17:00 05/25/17 16:59 Lorazepam (Ativan Tab) 0.5 mg Q6H PRN PO 04/25/17 13:15 05/25/17 13:14 Review of Systems Integumentary: + problem reported (painful ulcer left buttock) Physical Exam Date Time Temp Pulse Resp B/P (MAP) Pulse Ox O2 Delivery O2 Flow Rate FiO2 04/25/17 12:37 36.8 89 18 129/71 (90) 95 04/25/17 11:50 63 16 98 Nasal Cannula 4.0 04/25/17 08:46 36.5 56 16 108/71 (83) 99 Nasal Cannula 4.0 04/25/17 08:00 Nasal Cannula 4.0 04/25/17 07:06 61 16 100 Nasal Cannula 4.0 04/25/17 05:45 36.6 65 18 106/69 (81) 100 Nasal Cannula 4.0 04/25/17 04:00 96 Nasal Cannula 4.0 04/25/17 03:35 64 16 98 Nasal Cannula 4.0 04/25/17 00:00 96 Nasal Cannula 4.0 04/24/17 23:15 59 16 99 Nasal Cannula 4.0 04/24/17 20:00 96 Nasal Cannula 4.0 04/24/17 19:49 59 16 96 Nasal Cannula 4.0 04/24/17 16:00 96 Nasal Cannula 4.0 04/24/17 15:33 36.5 82 20 112/72 (85) 100 Nasal Cannula 3.0 General Appearance: no apparent distress Head: normocephalic Eyes: EOMI Respiratory/Chest: no respiratory distress, no accessory muscle use Abdomen/GI: non tender, soft Extremities/Musculoskelatal: + pertinent finding (RLE BKA) Neurologic/Psych: alert, oriented x 3 Skin: + pertinent finding (+decub ulcer left buttock with surrounding inflammation. no drainage. no fluctuance palpable) Laboratory Results Last 24 Hours Test 04/24/17 15:49 04/25/17 00:15 04/25/17 06:31 04/25/17 11:28 Troponin I 15.800 ng/ml 28.500 ng/ml 22.900 ng/ml Thyroid Stimulating Hormone (TSH) 0.745 uIu/ml White Blood Count 7.80 K/uL Red Blood Count 3.43 M/uL Hemoglobin 10.7 g/dL Hematocrit 34.6 % Mean Corpuscular Volume 100.9 fL Mean Corpuscular Hemoglobin 31.2 pg Mean Corpuscular Hemoglobin Concent 30.9 g/dl RDW Standard Deviation 54.3 fL RDW Coefficient of Variation 14.9 % Platelet Count 229 K/uL Mean Platelet Volume 10.4 fL Sodium Level 142 mmol/L Potassium Level 3.5 mmol/L Chloride Level 107 mmol/L Carbon Dioxide Level 25 mmol/L Anion Gap 10.0 mmol/L Blood Urea Nitrogen 18 mg/dl Creatinine 0.95 mg/dl Est Creatinine Clear Calc Drug Dose 93.3 ml/min Estimated GFR () 94.9 Estimated GFR (Non- 81.9 BUN/Creatinine Ratio 19.1 Random Glucose 103 mg/dl Calcium Level 8.9 mg/dl Magnesium Level 2.2 mg/dl Vitamin B12 Level 639 pg/mL Folate 10.78 ng/mL Bedside Glucose 126 mg/dl Assessment & Plan multiple medical problems at high risk for any surgery no visible/palpable abcess ct reviewed. may be in the process of developing an abcess but for now I believe it is just soft tissue cellulitis. [id number] I recommend local wound care only to the buttock ulcer. if pt develops worsening pain, erythema, unexplained leukocytosis, or fever, then repeat ct scan to evaluate for drainable fluid could be performed. nothing to drain currently.
[2017-04-25] MEDS: FUROSEMIDE INJ 40 MG in SYRINGE 0 ML IV SCH (17:28)
[2017-04-25] MEDS: RIVAROXABAN 20 MG TAB PO SCH (17:28)
[2017-04-25] MEDS: AMIODARONE / D5W 200 ML IV SCH (17:33)
[2017-04-25] MEDS: VANCOMYCIN INJ 1,750 MG in SODIUM CHLORIDE 0.9% 500ML 500 ML IV SCH (20:51)
[2017-04-25] MEDS: SIMVASTATIN 40 MG TAB PO SCH (20:52)
[2017-04-25] MEDS: GABAPENTIN 600 MG TAB PO SCH (20:52)
[2017-04-25] MEDS: LORAZEPAM 0.5 MG TAB PO PRN (21:13)
[2017-04-26] VITALS (12 sets, daily range): BP systolic 89–121; BP diastolic 57–75; PULSE 55–68; TEMP 36.4–37.2; O2SAT 92–100
[2017-04-26] MEDS: CHECK FENTANYL PATCH PLACEMENT SCH ×4 (00:22→23:04)
[2017-04-26] MEDS: AMIODARONE / D5W 200 ML IV SCH (02:08)
[2017-04-26] MEDS: ALBUT/IPRATROP 3MG/0.5MG NEB 3 ML VIAL INH SCH ×2 (03:43→07:09)
[2017-04-26 06:44] LABS: HEMATOCRIT 34.1 % (42-52); HEMOGLOBIN 10.7 g/dL (14.0-18.0); MEAN CELL VOLUME 100.6 fL (80-100); MEAN CORPUSCULAR HEMOGLOBIN 31.6 pg (25-34); MEAN CORPUSCULAR HGB CONC 31.4 g/dl (32-36); MEAN PLATELET VOLUME 10.1 fL (7.4-10.4); PLATELET COUNT 208 K/uL (130-400); RED CELL DISTRIBUTION WIDTH CV 14.8 % (11.5-14.5); RED CELL DISTRIBUTION WIDTH SD 54.1 fL (36.4-46.3); WHITE BLOOD COUNT 6.88 K/uL (4.8-10.8)
[2017-04-26] MEDS: INSULIN ASPART 100 UNITS/ML 3 ML PEN SC SCH ×4 (07:00→20:54)
[2017-04-26 07:13] LABS: CALCIUM 8.6 mg/dl (8.5-10.1); CREATININE 0.95 mg/dl (0.60-1.40); POTASSIUM 3.3 mmol/L (3.5-5.1)
[2017-04-26 07:50] LABS: HEMOGLOBIN A1C 6.2 % (4.5-5.6)
[2017-04-26] MEDS: LOSARTAN POTASSIUM 25 MG TAB PO SCH (08:32)
[2017-04-26] MEDS: ISOSORBIDE MONONITRATE 60 MG TABCR PO SCH (08:33)
[2017-04-26] MEDS: ASPIRIN 81 MG ECTAB PO SCH (08:33)
[2017-04-26] MEDS: ALLOPURINOL 100 MG TAB PO SCH (08:33)
[2017-04-26] MEDS: RANITIDINE HCL 150 MG TAB PO SCH ×2 (08:33→20:08)
[2017-04-26] MEDS: SERTRALINE HCL 100 MG TAB PO SCH (08:34)
[2017-04-26] MEDS: TOPIRAMATE 100 MG TAB PO SCH ×2 (08:34→20:08)
[2017-04-26] MEDS: GABAPENTIN 100 MG CAP PO SCH (08:35)
[2017-04-26] MEDS: POTASSIUM CHLORIDE 20 MEQ TABCR PO SCH (08:35)
[2017-04-26] MEDS: FLUTICASONE/SALMETEROL (ADVAIR) 500/50 INH 14 PUFF INH SCH ×2 (08:36→20:03)
[2017-04-26] MEDS: CEFTRIAXONE SOD INJ 2000 MG in DEXTROSE 5% 50ML IV SCH (08:40)
[2017-04-26] MEDS: CARVEDILOL 3.125 MG TAB PO SCH ×2 (08:41→20:07)
[2017-04-26] MEDS ORDERED: OXYCODONE HCL IR 5 MG TAB (IMMEDIATE RELEASE) PO PRN (09:00)
[2017-04-26] MEDS ORDERED: POTASSIUM CHLORIDE 20 MEQ/15 ML UDC PO ONE (09:00)
--- NOTE | 2017-04-26 09:02 | Clinical Documentation Query ---
CLINICAL DOCUMENTATION QUERY Cardiology consultation has stated NSTEM as a diagnosis. This documentation has not remained in internal medicine progress notes this makes record unclear. Please affirm or refute specialists finding to avoid post DC query by coding. In your clinical opinion is this patient being managed for: ( x) Non-ST elevation (NSTEMI) myocardial infarction ( ) Not Agree (Please document such) Please clarify and document your clinical opinion in the progress notes and discharge summary. Terms such as "probable", "suspected", "likely", "questionable", "possible", or "still to be ruled out" are acceptable. IF IN AGREEMENT, YOU MUST DOCUMENT ABOVE DIAGNOSTIC STATEMENT IN DAILY PROGRESS NOTES AND DISCHARGE SUMMARY. This document is not part of the patient's record. Thank You, Rafat Candelaria, OSMAR [phone]
--- NOTE | 2017-04-26 09:02 | Clinical Documentation Query ---
CLINICAL DOCUMENTATION QUERY Cardiology consultation has stated NSTEM as a diagnosis. This documentation has not remained in internal medicine progress notes this makes record unclear. Please affirm or refute specialists finding to avoid post DC query by coding. In your clinical opinion is this patient being managed for: ( x ) Non-ST elevation (NSTEMI) myocardial infarction ( ) Not Agree (Please document such) Please clarify and document your clinical opinion in the progress notes and discharge summary. Terms such as "probable", "suspected", "likely", "questionable", "possible", or "still to be ruled out" are acceptable. IF IN AGREEMENT, YOU MUST DOCUMENT ABOVE DIAGNOSTIC STATEMENT IN DAILY PROGRESS NOTES AND DISCHARGE SUMMARY. This document is not part of the patient's record. Thank You, Rafat Candelaria, OSMAR [phone]
[2017-04-26] MEDS: LORAZEPAM 0.5 MG TAB PO PRN (09:22)
--- NOTE | 2017-04-26 09:38 | Cardiology Follow-Up ---
Subjective Date of Service: Apr 26, 2017. Pt evaluation today including: conversation w/ patient, conversation w/ family , physical exam, chart review, lab review, review of studies, conversation w/ interior design consultant, review of inpatient medication list History of Present Illness Patient is resting comfortably in bed this morning. He denies any pain either chest pain or back or buttock pain. He has not been ambulatory. He states his breathing is comfortable. He has not been aware of any rhythm problems or palpitations. Social History Smoking Status: Former Smoker History of Alcohol Use: No Review of Systems Respiratory: + shortness of breath Cardiac: No chest pain Objective Vital Signs Past 12 Hours Date Time Temp Pulse Resp B/P (MAP) Pulse Ox O2 Delivery O2 Flow Rate FiO2 04/26/17 07:32 36.4 58 18 114/72 (86) 100 4.0 04/26/17 07:09 63 16 97 Nasal Cannula 4.0 04/26/17 04:38 36.8 63 18 108/70 (83) 100 Nasal Cannula 4.0 04/26/17 04:00 Nasal Cannula 4.0 04/26/17 03:35 56 16 95 Nasal Cannula 4.0 04/26/17 00:08 36.4 64 20 114/71 (85) 100 Nasal Cannula 4.0 04/26/17 00:00 Nasal Cannula 4.0 04/25/17 22:55 62 16 99 Nasal Cannula 4.0 Last Recorded Weight-Kilograms: 101.000 Physical Exam The patient is alert and oriented. Mood and affect appeared normal. He answered all questions appropriately. He was somewhat forgetful at times HEENT: Extraocular movements are intact. The sclerae are anicteric. Neuro: Cranial nerves intact Neck: Patient's neck is supple. He has palpable carotid pulses bilaterally without bruits on auscultation. There is no evidence of jugular venous distention. The thyroid is not enlarged. Lungs: Clear to auscultation bilaterally with only occasional crackles in left base. He has good air movement without use of accessory muscles. No rales wheezes or rhonchi. Cardiac: Heart demonstrates a regular rate and rhythm with occasional ectopy. Normal S1 and S2. No murmurs on examination. Pulses: The patient has palpable radial pulses bilaterally that are equal in intensity Extremities: There was no evidence of hypoperfusion. There is no cyanosis or clubbing. There is no edema. There is a left below-knee amputation. Right heel is bandaged Skin: I did not appreciate any rashes on examination today. Data Laboratory Results: Last 24 Hours Test 04/25/17 11:28 04/25/17 13:58 04/25/17 16:29 04/25/17 20:49 Bedside Glucose 126 mg/dl 130 mg/dl 144 mg/dl Troponin I 14.600 ng/ml Test 04/26/17 05:55 04/26/17 07:06 White Blood Count 6.88 K/uL Red Blood Count 3.39 M/uL Hemoglobin 10.7 g/dL Hematocrit 34.1 % Mean Corpuscular Volume 100.6 fL Mean Corpuscular Hemoglobin 31.6 pg Mean Corpuscular Hemoglobin Concent 31.4 g/dl RDW Standard Deviation 54.1 fL RDW Coefficient of Variation 14.8 % Platelet Count 208 K/uL Mean Platelet Volume 10.1 fL Sodium Level 139 mmol/L Potassium Level 3.3 mmol/L Chloride Level 103 mmol/L Carbon Dioxide Level 32 mmol/L Anion Gap 4.0 mmol/L Blood Urea Nitrogen 17 mg/dl Creatinine 0.95 mg/dl Est Creatinine Clear Calc Drug Dose 90.1 ml/min Estimated GFR () 94.9 Estimated GFR (Non- 81.9 BUN/Creatinine Ratio 18.5 Random Glucose 99 mg/dl Calcium Level 8.6 mg/dl Magnesium Level 2.1 mg/dl Troponin I 10.800 ng/ml Bedside Glucose 98 mg/dl Telemetry reviewed: Sinus rhythm I performed a complete device interrogation of his single-chamber [employer] ICD. Did have 5 episodes of ventricular fibrillation that were appropriately treated. There is no failure from the device. Threshold and sensing are normal. No other arrhythmias detected. Assessment and Plan 1. Ventricular fibrillation: Very likely that the etiology of these episodes was ischemic. He has known ischemic cardiomyopathy in his troponins are markedly elevated. He did not report symptoms of chest discomfort leading up to that event which is unusual. However I think a complete evaluation would involve coronary angiography with some assessment of his perfusion. I discussed the options with the patient his and daughter earlier today. I think angiography is the best option but we could perform perfusion imaging as an alternative and proceed based on those results. His renal function is normal. Think he could be approached from the left radial if necessary. I described the risks to the patient and family today and they will consider their options. Alternatively we can optimize his anti ischemic medical therapy and continue him on amiodarone. 2. Coronary artery disease patient has limited mobility. He has not reporting angina or coronary insufficiency symptoms leading up to this event. He has been on a reasonable regimen for aggressive secondary prevention. 3. Acute decompensated congestive heart failure: Patient did have an element of dyspnea and some mild vascular congestion on exam. His OptiVol readings were also elevated. It is possible that some decompensation in his heart failure lead to these events as well. He has been switched to a intravenous diuretic regimen. Will continue to monitor his symptoms and exam. 4. Atrial fibrillation: In sinus rhythm currently. On Xarelto which would need to be held for any angiography should he be agreeable.
[2017-04-26] MEDS: IPRATROPIUM BROMIDE/ALBUTEROL respimat INH INH SCH ×4 (09:53→20:03)
[2017-04-26] MEDS: FUROSEMIDE INJ 40 MG in SYRINGE 0 ML IV SCH ×2 (09:54→17:05)
[2017-04-26] MEDS ORDERED: AMIODARONE 200 MG TAB PO ONE (11:13)
[2017-04-26] MEDS ORDERED: ALBUT/IPRATROP 3MG/0.5MG NEB 3 ML VIAL INH PRN (12:00)
--- NOTE | 2017-04-26 13:20 | Family Medicine Progress Note ---
Progress Note Date of Service Apr 26, 2017. Subjective Pt evaluation today including: conversation w/ patient, physical exam, chart review, lab review Pain: reports heart burn chest pain this AM PO Intake: tolerating Voiding: aldrich catheter in place This AM reports heart burn chest pain. Pt spacey and not willing to describe further whether burning in nature vs. pressure like. Reports sob better. Denies any other symptoms. Constitutional: + fatigue, No fever, No chills Respiratory: + shortness of breath Cardiovascular: + chest pain Abdomen: No pain, No nausea, No vomiting Male : No dysuria Medications Current Inpatient Medications Medications (Trade) Dose Ordered Sig/Emily Route Start Time Stop Time Status Last Admin Dose Admin Acetaminophen (Tylenol Tab) 650 mg Q4H PRN PO 04/24/17 05:15 05/24/17 05:14 Al Hydrox/Mg Hydrox/Simethicone (Maalox Max Susp) 15 ml Q4H PRN PO 04/24/17 05:15 05/24/17 05:14 Magnesium Hydroxide (Milk Of Magnesia Susp) 30 ml Q12H PRN PO 04/24/17 05:15 05/24/17 05:14 Ondansetron HCl (Zofran Inj) 4 mg Q6H PRN IV 04/24/17 05:15 05/24/17 05:14 Nitroglycerin (Nitrostat Tab) 0.4 mg UD PRN SL 04/24/17 05:15 05/24/17 05:14 Polyethylene (Miralax Powder Packet) 17 gm DAILY PRN PO 04/24/17 05:15 05/24/17 05:14 Allopurinol (Zyloprim Tab) 100 mg QAM PO 04/24/17 09:00 05/24/17 08:59 04/26/17 08:33 100 MG Aspirin (Ecotrin Tab) 81 mg QAM PO 04/24/17 09:00 05/24/17 08:59 04/26/17 08:33 81 MG Bisacodyl (Dulcolax Supp) 10 mg UD PRN MO 04/24/17 05:15 05/24/17 05:14 Carvedilol (Coreg Tab) 9.375 mg BID PO 04/24/17 09:00 05/24/17 08:59 04/26/17 08:41 9.375 MG Fentanyl (Duragesic Patch) 50 mcg Q3D@1730 TD 04/26/17 17:30 05/10/17 17:29 Salmeterol Xinafoate/ Fluticasone (Advair Diskus 500/50 Inh) 1 puff BID INH 04/24/17 09:00 05/24/17 08:59 04/26/17 08:36 1 PUFF Gabapentin (Neurontin Cap) 200 mg QAM PO 04/24/17 09:00 05/24/17 08:59 04/26/17 08:35 200 MG Gabapentin (Neurontin Tab) 600 mg HS PO 04/24/17 21:00 05/24/17 20:59 04/25/17 20:52 600 MG Guaifenesin (Robitussin Sugar Free Syrup) 200 mg Q6H PRN PO 04/24/17 05:15 05/24/17 05:14 Isosorbide Mononitrate (Imdur Ext Rel Tab) 60 mg QAM PO 04/24/17 09:00 05/24/17 08:59 04/26/17 08:33 60 MG Losartan Potassium (coZAAR TAB) 25 mg QAM PO 04/24/17 09:00 05/24/17 08:59 04/26/17 08:32 25 MG Potassium Chloride (Klor-Con Tab) 20 meq QAM PO 04/24/17 09:00 05/24/17 08:59 04/26/17 08:35 20 MEQ Ranitidine HCl (zANTac TAB) 150 mg BID PO 04/24/17 09:00 05/24/17 08:59 04/26/17 08:33 150 MG Rivaroxaban (Xarelto Tab) 20 mg QDD PO 04/24/17 16:30 05/24/17 16:29 04/25/17 17:28 20 MG Sertraline HCl (Zoloft Tab) 200 mg QAM PO 04/24/17 09:00 05/24/17 08:59 04/26/17 08:34 200 MG Simvastatin (Zocor Tab) 40 mg QPM PO 04/24/17 21:00 05/24/17 20:59 04/25/17 20:52 40 MG Topiramate (Topamax Tab) 100 mg BID PO 1/20/18 09:00 05/24/17 08:59 04/26/17 08:34 100 MG Albuterol (Proair Hfa) 2 puffs Q6 PRN INH 04/24/17 05:15 05/24/17 05:14 Artificial Tears (Artificial Tears) 2 drops QID PRN OP 04/24/17 05:15 05/24/17 05:14 Miscellaneous (Iv Fluids Completed) 1 ea PRN PRN N/A 04/24/17 06:30 04/24/18 06:29 Amiodarone HCL/ Dextrose 200 ml @ 16.7 mls/hr [id number] IV 04/24/17 14:11 04/26/17 13:00 04/25/17 17:33 16.7 MLS/HR Miscellaneous Information (Consult) 1 ea UD PRN N/A 04/24/17 10:00 05/24/17 09:59 Ceftriaxone Sodium 2000 mg/ Dextrose 70 ml @ 140 mls/hr DAILY@1000 IV 04/24/17 10:00 05/04/17 09:59 04/26/17 08:40 140 MLS/HR Miscellaneous (Fentanyl Patch Remove & Waste) 1 ea Q3D@1729 N/A 04/26/17 17:29 05/26/17 17:28 Miscellaneous Information (Check Fentanyl Patch Placement) 1 ea QS N/A 04/24/17 16:00 05/24/17 15:59 04/26/17 08:00 1 EA Vancomycin HCl 1750 mg/Sodium Chloride 535 ml @ 200 mls/hr Q30H IV 04/24/17 14:00 05/04/17 13:59 04/25/17 20:51 200 MLS/HR Heparin Sodium (Porcine) (Heparin 10 Unit/ ml 5 ml Flush) 5 ml PRN PRN FLUSH 04/24/17 13:45 05/24/17 13:44 04/25/17 17:28 5 ML Insulin Aspart (novoLOG ASPART) SLIDING SCALE G... ACHS SC 04/25/17 07:00 05/25/17 06:59 Glucose (Glucose 40% Gel) 15-30 GRAMS 15 GRAMS... UD PRN PO 04/25/17 07:00 05/25/17 06:59 Glucose (Glucose Chew Tab) 4-8 Tablets 4 Tabl... UD PRN PO 04/25/17 07:00 05/25/17 06:59 Dextrose (Dextrose 50% 50ML Syringe) 25-50ML OF 50% DW IV FOR... UD PRN IV 04/25/17 07:00 05/25/17 06:59 Glucagon (Glucagon Inj) 1 mg UD PRN SQ 04/25/17 07:00 05/25/17 06:59 Furosemide 40 mg/ Syringe 4 ml @ 4 mls/min BID17 IV 04/25/17 17:00 05/25/17 16:59 04/26/17 09:54 4 MLS/MIN Lorazepam (Ativan Tab) 0.5 mg Q6H PRN PO 04/25/17 13:15 05/25/17 13:14 04/26/17 09:22 0.5 MG Oxycodone HCl (Roxicodone Immediate Rel Tab) 20 mg Q4H PRN PO 04/26/17 09:00 05/10/17 08:59 04/26/17 09:52 20 MG Albuterol/ Ipratropium (Duoneb) 3 ml Q4R PRN INH 04/26/17 12:00 05/24/17 19:59 Albuterol/ Ipratropium (Combivent Respimat Inh) 1 puffs QID INH 04/26/17 09:00 05/26/17 08:59 04/26/17 09:53 1 PUFFS Amiodarone HCl (Cordarone Tab) 400 mg BID PO 04/26/17 21:00 05/26/17 20:59 Objective Vital Signs Date Time Temp Pulse Resp B/P (MAP) Pulse Ox O2 Delivery O2 Flow Rate FiO2 04/26/17 11:26 37.2 68 18 121/68 (85) 92 Nasal Cannula 2.0 04/26/17 08:00 100 Nasal Cannula 2.0 04/26/17 07:32 36.4 58 18 114/72 (86) 100 4.0 04/26/17 07:09 63 16 97 Nasal Cannula 4.0 04/26/17 04:38 36.8 63 18 108/70 (83) 100 Nasal Cannula 4.0 04/26/17 04:00 Nasal Cannula 4.0 04/26/17 03:35 56 16 95 Nasal Cannula 4.0 04/26/17 00:08 36.4 64 20 114/71 (85) 100 Nasal Cannula 4.0 04/26/17 00:00 Nasal Cannula 4.0 04/25/17 22:55 62 16 99 Nasal Cannula 4.0 04/25/17 20:00 Nasal Cannula 4.0 04/25/17 19:45 36.6 63 16 109/70 (83) 100 Nasal Cannula 4.0 04/25/17 16:00 Nasal Cannula 4.0 04/25/17 15:59 36.6 61 18 106/71 (83) 100 Nasal Cannula 04/25/17 14:23 78 16 98 Nasal Cannula 4.0 Physical Exam General Appearance: no apparent distress, + pertinent finding (tired appearing) Eyes: normal inspection, sclerae normal Respiratory/Chest: lungs clear, + decreased breath sounds Cardiovascular: no murmur, + pertinent finding (irregular rhythm, regular rate) Abdomen: normal bowel sounds, non tender, soft Extremities: + pertinent finding (2+ b/l LE edema and TTP) Neurologic/Psychiatric: alert Skin: + pertinent finding (L buttocks ulcer 5x8 without palpable induration/ abscess; L and R dorsal thumb region epidermal sloughing (dressing intact); L BKA posterior aspect 5cm healing lac with granulation tissue; R loya, lateral foot and great toe healing wounds (dressing intact)) Laboratory Results 04/26/17 05:55 04/26/17 05:55 Test 04/26/17 05:55 04/26/17 11:13 Red Blood Count 3.39 M/uL (4.7-6.1) Mean Corpuscular Volume 100.6 fL (80-100) Mean Corpuscular Hemoglobin 31.6 pg (25-34) Mean Corpuscular Hemoglobin Concent 31.4 g/dl (32-36) RDW Standard Deviation 54.1 fL (36.4-46.3) RDW Coefficient of Variation 14.8 % (11.5-14.5) Mean Platelet Volume 10.1 fL (7.4-10.4) Anion Gap 4.0 mmol/L (3-11) Est Creatinine Clear Calc Drug Dose 90.1 ml/min Estimated GFR () 94.9 Estimated GFR (Non- 81.9 BUN/Creatinine Ratio 18.5 (10-20) Calcium Level 8.6 mg/dl (8.5-10.1) Magnesium Level 2.1 mg/dl (1.8-2.4) Troponin I 10.800 ng/ml (0-0.045) Bedside Glucose 126 mg/dl (70-99) Assessment and Plan 66 [place]F [place], with PMHx of CAD bypass x 2 - history of RI, chronic sCHF- EF 25-30%, VT- AICD placement, gout, prostate CA, COPD, chronic AF, HLD, HTN, factor V Leiden mutation and h/o PE, Renetta's syndrome, severe PAD s/p L BKA, s/p R iliac profundoplasty and stent, chronic troponin elevation, recurrent UTIs, GERD, and anxiety, admitted for dyspnea, and elevated troponin s /p defibrillation from IVCD x 5. Of note: recent admission for proteus/MRSA groin abscess in 03/22 with continued IV vanc and rocephin treatment. Asymptomatic elevation of troponin: consistent with Ischemia leading to Vfib for which defib discharged - troponin downtrended to 10.8 from peak of 28.5 - Pacer interrogated - torsades vs. Vfib - EKG no acute ischemic changes or ectopy - ECHO: EF 25-30%, no new wall motion abnormality, mildly dilated LV with severely reduced SF, mod dil RV w/t severely reduced SF - Cardiology consulted - Amiodarone changed to PO - 400mg BID - Dr. De seen recommended cardiac cath to which pt is agreeable per our discussion. Other options would be optimizing medical therapy with amiodarone getting perfusion imaging - Monitor electrolytes/BMP Acute on chronic bi-ventricular CHF exacerbation given dyspnea and VO status - diuresing well with improved sob - CXR L sided worsening pleural effusion, cardiomegaly and moderate volume overload - IV Lasix 60mg one - Started on Lasix 40mg IV BID - monitor electrolytes/BMP R groin MRSA and Proteus mirabilis cellulitis (cultures 03/30/17) s/p R iliac profundoplasty and stent by Dr. Gomez in November 2016 and L buttock collection/ abscess - CT abdomen and pelvis w/ot contrast: no acute osteomyelitis, L gluteal ulcer increased in size to 7.1 & 5.6cm ill defined margins focal phlegmon/abscess; R inguinal fluid collection decreased; small b/l pleural effusion, bibasilar opacity - atelectasis/pneumonitis, trace abdominal/pelvis ascites (fluid overload); pericholecystic edema/gallbladder distension - US 04/13 - complex heterogenous collection L buttock region 7 [id number] consistent with hematoma/abscess - CT 04/06 2.5cm hematoma/abscess R groin and L posterior though subq fat 8 X5 no evidence of osteo - Continue IV Rocephin + Vancomycin for 4 weeks - Wound care consulted for multiple wounds - ID consult - Surgery consulted for L buttock collection possible debridement - no palpable/visible abscess (likely in the process of developing) - soft tissue cellulitis - wound care - repeat CT if having leukocytosis, fever, erythema/worsening pain - Contact precautions COPD with possible exacerbation - improved dyspnea - Continue home inhaler: advair - Continue home combivent respimat - Duoneb Q4H PRN Chronic a.fib, CAD s/p RI, h/o VT w/ AICD, HTN, HLD, PAD, PVD - Continue ASA 81 mg daily, Coreg 9.375 mg daily (can titrate up to 25mg BP allowing per cards), Losartan 25 mg daily (can titrate up to 100 BP allowing per cards), Imdur 60 mg daily, Zocor 40 mg HS, Xarelto 20 mg HS Electrolytes - monitor Mag, K closely - K 3.3, Mag 2.1 this AM - Potassium chloride 20meq QAM - Received 40meq KCL for K of 3.5 this AM Chronic pain/neuropathy - Gabapentin 600mg HS and 200mg QAM - Fentanyl 50 mcg patch Q72H - Tylenol 1g BID Migraine - Topiramate 100mg BID - Monitor for anion gap metabolic acidosis Anxiety - Continue Zoloft 200 mg daily - Ativan 0.5mg Q6H PRN Gout - Continue Allopurinol 100 mg daily Factor V Leiden mutation and h/o PE - Continue Xarelto 20mg HS Anemia - macrocytic - Hgb stable at baseline - MCV 100 - iron studies done recently - Ordered folate and B12 nl - Dced ferrous sulfate BID PO - recommend outpt heme consult GERD, GI prophylaxis - Continue Zantac 150 mg BID DVT prophylaxis: Xarelto on hold for cardiac cath Code Status: LEVEL I, FULL Dispo: Bed on hold at [facility] Resident Physician Supervision Note: I interviewed and examined the patient. Discussed with Dr. Lo and agree with findings and plan as documented in the note. Any exceptions or clarifications are listed here: None Documented By: Ras Franco feeling ok now, no further chest pain - notes that it's been off and on from time to time though. not now. OK to have LHC done - notes he has good quality of life and after consideration would like aggressive care vitals noted nad breathing unlabored no pallor or icterus NSTEMI / Vfib - for LHC. change statin to atorvastatin, slowly titrate up coreg as tolerated Resident Involvement: Resident Care Provided Care Provided: Adult Hospital Medicine
[2017-04-26] MEDS ORDERED: FENTANYL PATCH REMOVE & WASTE SCH (17:29)
[2017-04-26] MEDS ORDERED: FENTANYL 50 MCG/HR TDSY TD SCH (17:30)
[2017-04-26] MEDS: AMIODARONE 200 MG TAB PO SCH (20:07)
[2017-04-26] MEDS: GABAPENTIN 600 MG TAB PO SCH (20:08)
--- NOTE | 2017-04-26 20:59 | Infectious Disease Progress Nt ---
Progress Note Date of Service Apr 26, 2017. Subjective Pt evaluation today including: conversation w/ patient, physical exam, chart review, lab review, review of studies, conversation w/ center lead consultant, review of inpatient medication list Another episode of burning type chest pain today. Otherwise offers no new complaints. Remains afebrile All Other Systems: Reviewed and Negative Medications Current Inpatient Medications Medications (Trade) Dose Ordered Sig/Emily Route Start Time Stop Time Status Last Admin Dose Admin Acetaminophen (Tylenol Tab) 650 mg Q4H PRN PO 04/24/17 05:15 05/24/17 05:14 Al Hydrox/Mg Hydrox/Simethicone (Maalox Max Susp) 15 ml Q4H PRN PO 04/24/17 05:15 05/24/17 05:14 Magnesium Hydroxide (Milk Of Magnesia Susp) 30 ml Q12H PRN PO 04/24/17 05:15 05/24/17 05:14 Ondansetron HCl (Zofran Inj) 4 mg Q6H PRN IV 04/24/17 05:15 05/24/17 05:14 Nitroglycerin (Nitrostat Tab) 0.4 mg UD PRN SL 04/24/17 05:15 05/24/17 05:14 Polyethylene (Miralax Powder Packet) 17 gm DAILY PRN PO 04/24/17 05:15 05/24/17 05:14 Allopurinol (Zyloprim Tab) 100 mg QAM PO 04/24/17 09:00 05/24/17 08:59 04/26/17 08:33 100 MG Aspirin (Ecotrin Tab) 81 mg QAM PO 04/24/17 09:00 05/24/17 08:59 04/26/17 08:33 81 MG Bisacodyl (Dulcolax Supp) 10 mg UD PRN NE 04/24/17 05:15 05/24/17 05:14 Carvedilol (Coreg Tab) 9.375 mg BID PO 04/24/17 09:00 05/24/17 08:59 04/26/17 20:07 9.375 MG Fentanyl (Duragesic Patch) 50 mcg Q3D@1730 TD 04/26/17 17:30 05/10/17 17:29 04/26/17 18:01 50 MCG Salmeterol Xinafoate/ Fluticasone (Advair Diskus 500/50 Inh) 1 puff BID INH 04/24/17 09:00 05/24/17 08:59 04/26/17 20:03 1 PUFF Gabapentin (Neurontin Cap) 200 mg QAM PO 04/24/17 09:00 05/24/17 08:59 04/26/17 08:35 200 MG Gabapentin (Neurontin Tab) 600 mg HS PO 04/24/17 21:00 05/24/17 20:59 04/26/17 20:08 600 MG Guaifenesin (Robitussin Sugar Free Syrup) 200 mg Q6H PRN PO 04/24/17 05:15 05/24/17 05:14 Isosorbide Mononitrate (Imdur Ext Rel Tab) 60 mg QAM PO 04/24/17 09:00 05/24/17 08:59 04/26/17 08:33 60 MG Losartan Potassium (coZAAR TAB) 25 mg QAM PO 04/24/17 09:00 05/24/17 08:59 04/26/17 08:32 25 MG Potassium Chloride (Klor-Con Tab) 20 meq QAM PO 04/24/17 09:00 05/24/17 08:59 04/26/17 08:35 20 MEQ Ranitidine HCl (zANTac TAB) 150 mg BID PO 04/24/17 09:00 05/24/17 08:59 04/26/17 20:08 150 MG Rivaroxaban (Xarelto Tab) 20 mg QDD PO 04/24/17 16:30 05/24/17 16:29 Future Hold 04/25/17 17:28 20 MG Sertraline HCl (Zoloft Tab) 200 mg QAM PO 04/24/17 09:00 05/24/17 08:59 04/26/17 08:34 200 MG Topiramate (Topamax Tab) 100 mg BID PO 04/24/17 09:00 05/24/17 08:59 04/26/17 20:08 100 MG Albuterol (Proair Hfa) 2 puffs Q6 PRN INH 04/24/17 05:15 05/24/17 05:14 Artificial Tears (Artificial Tears) 2 drops QID PRN OP 04/24/17 05:15 05/24/17 05:14 Miscellaneous (Iv Fluids Completed) 1 ea PRN PRN N/A 04/24/17 06:30 04/24/18 06:29 Miscellaneous Information (Consult) 1 ea UD PRN N/A 04/24/17 10:00 05/24/17 09:59 Ceftriaxone Sodium 2000 mg/ Dextrose 70 ml @ 140 mls/hr DAILY@1000 IV 04/24/17 10:00 05/04/17 09:59 04/26/17 08:40 140 MLS/HR Miscellaneous (Fentanyl Patch Remove & Waste) 1 ea Q3D@1729 N/A 04/26/17 17:29 05/26/17 17:28 04/26/17 17:29 1 EA Miscellaneous Information (Check Fentanyl Patch Placement) 1 ea QS N/A 04/24/17 16:00 05/24/17 15:59 04/26/17 16:06 1 EA Vancomycin HCl 1750 mg/Sodium Chloride 535 ml @ 200 mls/hr Q30H IV 04/24/17 14:00 05/04/17 13:59 04/25/17 20:51 200 MLS/HR Heparin Sodium (Porcine) (Heparin 10 Unit/ ml 5 ml Flush) 5 ml PRN PRN FLUSH 04/24/17 13:45 05/24/17 13:44 04/25/17 17:28 5 ML Insulin Aspart (novoLOG ASPART) SLIDING SCALE G... ACHS SC 04/25/17 07:00 05/25/17 06:59 Glucose (Glucose 40% Gel) 15-30 GRAMS 15 GRAMS... UD PRN PO 04/25/17 07:00 05/25/17 06:59 Glucose (Glucose Chew Tab) 4-8 Tablets 4 Tabl... UD PRN PO 04/25/17 07:00 05/25/17 06:59 Dextrose (Dextrose 50% 50ML Syringe) 25-50ML OF 50% DW IV FOR... UD PRN IV 04/25/17 07:00 05/25/17 06:59 Glucagon (Glucagon Inj) 1 mg UD PRN SQ 04/25/17 07:00 05/25/17 06:59 Furosemide 40 mg/ Syringe 4 ml @ 4 mls/min BID17 IV 04/25/17 17:00 05/25/17 16:59 04/26/17 17:05 4 MLS/MIN Lorazepam (Ativan Tab) 0.5 mg Q6H PRN PO 04/25/17 13:15 05/25/17 13:14 04/26/17 09:22 0.5 MG Oxycodone HCl (Roxicodone Immediate Rel Tab) 20 mg Q4H PRN PO 04/26/17 09:00 05/10/17 08:59 04/26/17 09:52 20 MG Albuterol/ Ipratropium (Duoneb) 3 ml Q4R PRN INH 04/26/17 12:00 05/24/17 19:59 Albuterol/ Ipratropium (Combivent Respimat Inh) 1 puffs QID INH 04/26/17 09:00 05/26/17 08:59 04/26/17 20:03 1 PUFFS Amiodarone HCl (Cordarone Tab) 400 mg BID PO 04/26/17 21:00 05/26/17 20:59 04/26/17 20:07 400 MG Heparin Sodium/ Dextrose 500 ml @ 31 mls/hr Q16H8M PRN IV 04/26/17 19:30 05/26/17 19:29 Atorvastatin Calcium (Lipitor Tab) 80 mg QAM PO 04/27/17 09:00 05/27/17 08:59 Objective Vital Signs Date Time Temp Pulse Resp B/P (MAP) Pulse Ox O2 Delivery O2 Flow Rate FiO2 04/26/17 19:13 36.7 55 18 115/75 (88) 99 Nasal Cannula 2.0 04/26/17 16:00 100 Nasal Cannula 2.0 04/26/17 15:36 36.8 60 18 90/59 (69) 95 Nasal Cannula 2.0 04/26/17 12:00 100 Nasal Cannula 2.0 04/26/17 11:26 37.2 68 18 121/68 (85) 92 Nasal Cannula 2.0 04/26/17 08:00 100 Nasal Cannula 2.0 04/26/17 07:32 36.4 58 18 114/72 (86) 100 4.0 04/26/17 07:09 63 16 97 Nasal Cannula 4.0 04/26/17 04:38 36.8 63 18 108/70 (83) 100 Nasal Cannula 4.0 04/26/17 04:00 Nasal Cannula 4.0 04/26/17 03:35 56 16 95 Nasal Cannula 4.0 04/26/17 00:08 36.4 64 20 114/71 (85) 100 Nasal Cannula 4.0 04/26/17 00:00 Nasal Cannula 4.0 04/25/17 22:55 62 16 99 Nasal Cannula 4.0 Physical Exam General Appearance: WD/WN, no apparent distress, + pertinent finding ( Chronically ill-appearing) Eyes: normal inspection, EOMI, sclerae normal ENT: normal ENT inspection, pharynx normal Neck: supple, no adenopathy, thyroid normal, trachea midline Respiratory/Chest: chest non-tender, lungs clear, normal breath sounds, no respiratory distress Cardiovascular: regular rate, rhythm, no gallop, no murmur Abdomen: normal bowel sounds, non tender, soft, no organomegaly Extremities: non-tender, no calf tenderness Neurologic/Psychiatric: alert, oriented x 3 Skin: normal color, no rash, + pertinent finding (No drainage from right groin today) Lymphatic: no adenopathy Laboratory Results Last 24 Hours Test 04/26/17 00:00 04/26/17 05:55 04/26/17 07:06 04/26/17 11:13 Urine Color YELLOW Urine Appearance CLEAR Urine pH 5.5 Urine Specific [place] 1.020 Urine Protein NEG Urine Glucose (UA) NEG Urine Ketones NEG Urine Occult Blood TRACE Urine Nitrite NEG Urine Bilirubin NEG Urine Urobilinogen NEG Urine Leukocyte Esterase TRACE Urine WBC (Auto) 1-5 /hpf Urine RBC (Auto) 5-10 /hpf Urine Hyaline Casts (Auto) 5-10 /lpf Urine Epithelial Cells (Auto) 10-20 /lpf Urine Bacteria (Auto) NEG Urine Crystals CALCIUM OXALATE Urine Mucus PRESENT White Blood Count 6.88 K/uL Red Blood Count 3.39 M/uL Hemoglobin 10.7 g/dL Hematocrit 34.1 % Mean Corpuscular Volume 100.6 fL Mean Corpuscular Hemoglobin 31.6 pg Mean Corpuscular Hemoglobin Concent 31.4 g/dl RDW Standard Deviation 54.1 fL RDW Coefficient of Variation 14.8 % Platelet Count 208 K/uL Mean Platelet Volume 10.1 fL Sodium Level 139 mmol/L Potassium Level 3.3 mmol/L Chloride Level 103 mmol/L Carbon Dioxide Level 32 mmol/L Anion Gap 4.0 mmol/L Blood Urea Nitrogen 17 mg/dl Creatinine 0.95 mg/dl Est Creatinine Clear Calc Drug Dose 90.1 ml/min Estimated GFR () 94.9 Estimated GFR (Non- 81.9 BUN/Creatinine Ratio 18.5 Random Glucose 99 mg/dl Calcium Level 8.6 mg/dl Magnesium Level 2.1 mg/dl Troponin I 10.800 ng/ml Bedside Glucose 98 mg/dl 126 mg/dl Test 04/26/17 16:20 04/26/17 20:49 Bedside Glucose 112 mg/dl Assessment and Plan 66-year-old male with poorly controlled diabetes mellitus, peripheral arterial disease, with chronic infection of right groin and possible graft infection with MRSA and Proteus, being treated with vancomycin and ceftriaxone. Also with evidence on ultrasound of large buttock collection/possible developing abscess. Patient should continue on IV antibiotics with vancomycin and ceftriaxone, likely will need prolonged course. Surgery feels no intervention necessary at present. Will continue to follow.
[2017-04-26] MEDS: HEPARIN 25,000 UNIT/500ML D5W 500 ML IV PRN (21:30)
[2017-04-26 21:40] LABS: PTT PATIENT 38.3 SECONDS (21.0-31.0)
[2017-04-26] MEDS ORDERED: ALTEPLASE, RECOMBINANT 1 MG/ML 2 ML VIAL IV SCH (22:00)
[2017-04-26] MEDS ORDERED: WATER, STERILE FOR INJ 10 ML VIAL IV SCH (22:00)
[2017-04-26] MEDS ORDERED: NURSING VERBAL MED ORDER ONE (22:00)
[2017-04-27] VITALS (9 sets, daily range): BP systolic 90–105; BP diastolic 49–70; PULSE 54–61; TEMP 36.7–37.3; O2SAT 91–100
[2017-04-27] MEDS: VANCOMYCIN INJ 1,750 MG in SODIUM CHLORIDE 0.9% 500ML 500 ML IV SCH (01:58)
[2017-04-27 03:57] LABS: PTT PATIENT 82.2 SECONDS (21.0-31.0)
[2017-04-27] MEDS: HEPARIN 25,000 UNIT/500ML D5W 500 ML IV PRN ×2 (04:35→11:24)
[2017-04-27 06:12] LABS: HEMATOCRIT 31.5 % (42-52); HEMOGLOBIN 9.8 g/dL (14.0-18.0); MEAN CELL VOLUME 100.3 fL (80-100); MEAN CORPUSCULAR HEMOGLOBIN 31.2 pg (25-34); MEAN CORPUSCULAR HGB CONC 31.1 g/dl (32-36); MEAN PLATELET VOLUME 9.6 fL (7.4-10.4); PLATELET COUNT 196 K/uL (130-400); RED CELL DISTRIBUTION WIDTH CV 14.6 % (11.5-14.5); RED CELL DISTRIBUTION WIDTH SD 52.9 fL (36.4-46.3); WHITE BLOOD COUNT 5.87 K/uL (4.8-10.8)
[2017-04-27 06:50] LABS: CALCIUM 8.3 mg/dl (8.5-10.1); CREATININE 0.9 mg/dl (0.60-1.40); POTASSIUM 3.1 mmol/L (3.5-5.1)
[2017-04-27] MEDS: INSULIN ASPART 100 UNITS/ML 3 ML PEN SC SCH ×4 (07:00→21:00)
[2017-04-27] MEDS: CHECK FENTANYL PATCH PLACEMENT SCH ×3 (08:00→23:25)
[2017-04-27] MEDS: FUROSEMIDE INJ 40 MG in SYRINGE 0 ML IV SCH ×2 (08:29→16:49)
[2017-04-27] MEDS: ALLOPURINOL 100 MG TAB PO SCH (08:29)
[2017-04-27] MEDS: ASPIRIN 81 MG ECTAB PO SCH (08:29)
[2017-04-27] MEDS: ISOSORBIDE MONONITRATE 60 MG TABCR PO SCH (08:30)
[2017-04-27] MEDS: RANITIDINE HCL 150 MG TAB PO SCH ×2 (08:30→21:10)
[2017-04-27] MEDS: LOSARTAN POTASSIUM 25 MG TAB PO SCH (08:30)
[2017-04-27] MEDS: SERTRALINE HCL 100 MG TAB PO SCH (08:30)
[2017-04-27] MEDS: IPRATROPIUM BROMIDE/ALBUTEROL respimat INH INH SCH ×4 (08:30→21:09)
[2017-04-27] MEDS: POTASSIUM CHLORIDE 20 MEQ TABCR PO SCH (08:31)
[2017-04-27] MEDS: FLUTICASONE/SALMETEROL (ADVAIR) 500/50 INH 14 PUFF INH SCH ×2 (08:32→21:09)
[2017-04-27] MEDS: TOPIRAMATE 100 MG TAB PO SCH ×2 (08:32→21:10)
[2017-04-27] MEDS: CARVEDILOL 3.125 MG TAB PO SCH ×2 (08:33→21:00)
[2017-04-27] MEDS: CEFTRIAXONE SOD INJ 2000 MG in DEXTROSE 5% 50ML IV SCH (08:34)
[2017-04-27] MEDS: GABAPENTIN 100 MG CAP PO SCH (08:34)
[2017-04-27] MEDS: AMIODARONE 200 MG TAB PO SCH ×2 (08:34→21:14)
[2017-04-27] MEDS ORDERED: POTASSIUM CHLORIDE 20 MEQ/15 ML UDC PO STA (09:01)
[2017-04-27] MEDS ORDERED: POTASSIUM CHLORIDE 10 MEQ / 100ML WTR IV STA (09:02)
[2017-04-27] MEDS: POTASSIUM CHLR 10 MEQ / WTR 10 MEQ in PREMIXED WATER 100 ML IV SCH ×4 (09:40→11:33)
[2017-04-27] MEDS: ATORVASTATIN 40 MG TAB PO SCH (09:40)
--- NOTE | 2017-04-27 09:43 | CARDIOLOGY PROGRESS NOTE ---
DATE: 04/27/2017 TIME: 9:13 a.m. SUBJECTIVE: He denies chest pain, shortness of breath, syncope, near syncope, palpitations. He did have several doubtful questions about a cardiac catheterization. OBJECTIVE: VITAL SIGNS: Temperature 36.7 degrees, heart rate 56 beats per minute, respiration rate 16, blood pressure 96/69 mmHg, oxygen saturation 96% on room air. I's and O's negative 1.2 liters yesterday. Weight is 99.8 kg. GENERAL: No acute distress. He is alert. NECK: Thick. CARDIAC: No ventricular heave. Regular with occasional ectopy. Normal S1, S2. There were no audible murmurs, rubs or gallops. LUNGS: Decreased breath sounds, but otherwise clear. ABDOMEN: Soft, nontender, nondistended. Normoactive bowel sounds. EXTREMITIES: 1+ right lower extremity edema 2/[address] of the knee, improving. Trace to 1+ left lower extremity edema in his stump. No cyanosis. 2+ left radial pulse. MEDICATIONS: Include amiodarone 400 mg p.o. b.i.d., aspirin 81 mg daily, atorvastatin 80 mg daily, carvedilol 9.375 mg p.o. b.i.d., ceftriaxone 2 grams IV daily, fentanyl patch 50 mcg, Lasix 40 mg IV b.i.d., heparin drip per protocol, isosorbide mononitrate 60 mg daily, losartan 25 mg daily, potassium chloride 20 mEq daily, sertraline 200 mg daily, Topamax 100 mg p.o. b.i.d., vancomycin 1.75 mg IV q. 30 hours. Telemetry strips reviewed. No ventricular arrhythmia. LABORATORY DATA: Sodium 139, potassium 3.1, BUN 15, creatinine 0.9, magnesium 2.1. WBC 5.87, hemoglobin 9.8, platelets 196. PTT 82.2. ASSESSMENT AND PLAN: 1. Acute on chronic systolic congestive heart failure: He is still hypervolemic, but continues to improve on intravenous diuretics. Continue current regimen of Lasix 40 mg IV b.i.d. Continue low sodium diet, strict I's and O's and daily weights. 2. Non-ST elevation myocardial infarction: Concerning that ischemic event caused his ventricular fibrillation. He denies any angina but his family states that he does not offer up symptoms typically. We have discussed coronary angiography throughout his hospitalization. He is now agreeable to undergo the procedure. His and daughter also stated that they would like for him to pursue coronary angiography. Risks and benefits have been discussed with his , daughter, and also himself today. They were made aware that CT surgery is not available at this facility. Coronary angiography may be able to perform later today if/when the lab is available. Continue antiplatelet therapy, high intensity statin therapy and beta russ. 3. Ventricular fibrillation, status post ICD shock x5: Continue amiodarone 400 mg p.o. b.i.d. for a total of 10-day load and then amiodarone can be reduced. He will continue to follow with Dr. Sarmiento as an outpatient. Concerning that ischemic event causes ventricular fibrillation as noted above. 4. Atrial fibrillation/flutter: Xarelto is on hold for cardiac catheterization. He is currently on a heparin drip. Continue beta russ. 5. Coronary artery disease status post coronary artery bypass grafting x2: He reportedly had a GALDAMEZ to his LAD and an SVG to a PDA. Cardiac catheterization as noted above. Continue current regimen. 6. Cardiomyopathy: Continue current regimen for now. Further titration can be considered in the future. He has been mildly hypotensive and will not change these medications today prior to his cardiac catheterization, but could consider becoming more aggressive with this regimen in the future. 7. Disposition: Cardiology will continue to follow.
[2017-04-27 11:10] LABS: PTT PATIENT 70.2 SECONDS (21.0-31.0)
[2017-04-27] MEDS ORDERED: NURSING VERBAL MED ORDER ONE ×2 (11:30→19:30)
--- NOTE | 2017-04-27 11:48 | Family Medicine Progress Note ---
Progress Note Date of Service Apr 27, 2017. Subjective Pt evaluation today including: conversation w/ patient, physical exam, chart review, lab review Pain: reports heartburn this AM (points to epigastric region) PO Intake: NPO for cardiac cath Voiding: aldrich catheter in place This AM reports heart burn points to epigastric region. Reports improvement in sob from when he came in. Denies cp, n/v. ON: PTT elevated to 82.2 - stopped heparin drip for 30 mins then restarted at 150 u/hr TELE: 50s-60s paced/sinus Constitutional: No fever, No chills Respiratory: + shortness of breath Cardiovascular: No chest pain Abdomen: + pain (epigastric), No nausea, No vomiting Male : No dysuria Medications Current Inpatient Medications Medications (Trade) Dose Ordered Sig/Emily Route Start Time Stop Time Status Last Admin Dose Admin Acetaminophen (Tylenol Tab) 650 mg Q4H PRN PO 04/24/17 05:15 05/24/17 05:14 Al Hydrox/Mg Hydrox/Simethicone (Maalox Max Susp) 15 ml Q4H PRN PO 04/24/17 05:15 05/24/17 05:14 Magnesium Hydroxide (Milk Of Magnesia Susp) 30 ml Q12H PRN PO 04/24/17 05:15 05/24/17 05:14 Ondansetron HCl (Zofran Inj) 4 mg Q6H PRN IV 04/24/17 05:15 05/24/17 05:14 Nitroglycerin (Nitrostat Tab) 0.4 mg UD PRN SL 04/24/17 05:15 05/24/17 05:14 Polyethylene (Miralax Powder Packet) 17 gm DAILY PRN PO 04/24/17 05:15 05/24/17 05:14 Allopurinol (Zyloprim Tab) 100 mg QAM PO 04/24/17 09:00 05/24/17 08:59 04/27/17 08:29 100 MG Aspirin (Ecotrin Tab) 81 mg QAM PO 04/24/17 09:00 05/24/17 08:59 04/27/17 08:29 81 MG Bisacodyl (Dulcolax Supp) 10 mg UD PRN ID 04/24/17 05:15 05/24/17 05:14 Carvedilol (Coreg Tab) 9.375 mg BID PO 04/24/17 09:00 05/24/17 08:59 04/27/17 08:33 9.375 MG Fentanyl (Duragesic Patch) 50 mcg Q3D@1730 TD 04/26/17 17:30 05/10/17 17:29 04/26/17 18:01 50 MCG Salmeterol Xinafoate/ Fluticasone (Advair Diskus 500/50 Inh) 1 puff BID INH 04/24/17 09:00 05/24/17 08:59 04/27/17 08:32 1 PUFF Gabapentin (Neurontin Cap) 200 mg QAM PO 04/24/17 09:00 05/24/17 08:59 04/27/17 08:34 200 MG Gabapentin (Neurontin Tab) 600 mg HS PO 04/24/17 21:00 05/24/17 20:59 04/26/17 20:08 600 MG Guaifenesin (Robitussin Sugar Free Syrup) 200 mg Q6H PRN PO 04/24/17 05:15 05/24/17 05:14 Isosorbide Mononitrate (Imdur Ext Rel Tab) 60 mg QAM PO 04/24/17 09:00 05/24/17 08:59 04/27/17 08:30 60 MG Losartan Potassium (coZAAR TAB) 25 mg QAM PO 04/24/17 09:00 05/24/17 08:59 04/27/17 08:30 25 MG Potassium Chloride (Klor-Con Tab) 20 meq QAM PO 04/24/17 09:00 05/24/17 08:59 04/27/17 08:31 20 MEQ Ranitidine HCl (zANTac TAB) 150 mg BID PO 04/24/17 09:00 05/24/17 08:59 04/27/17 08:30 150 MG Rivaroxaban (Xarelto Tab) 20 mg QDD PO 04/24/17 16:30 05/24/17 16:29 Future Hold 04/25/17 17:28 20 MG Sertraline HCl (Zoloft Tab) 200 mg QAM PO 04/24/17 09:00 05/24/17 08:59 04/27/17 08:30 200 MG Topiramate (Topamax Tab) 100 mg BID PO 04/24/17 09:00 05/24/17 08:59 04/27/17 08:32 100 MG Albuterol (Proair Hfa) 2 puffs Q6 PRN INH 04/24/17 05:15 05/24/17 05:14 Artificial Tears (Artificial Tears) 2 drops QID PRN OP 04/24/17 05:15 05/24/17 05:14 Miscellaneous (Iv Fluids Completed) 1 ea PRN PRN N/A 04/24/17 06:30 04/24/18 06:29 Miscellaneous Information (Consult) 1 ea UD PRN N/A 04/24/17 10:00 05/24/17 09:59 Ceftriaxone Sodium 2000 mg/ Dextrose 70 ml @ 140 mls/hr DAILY@1000 IV 04/24/17 10:00 05/04/17 09:59 04/27/17 08:34 140 MLS/HR Miscellaneous (Fentanyl Patch Remove & Waste) 1 ea Q3D@1729 N/A 04/26/17 17:29 05/26/17 17:28 04/26/17 17:29 1 EA Miscellaneous Information (Check Fentanyl Patch Placement) 1 ea QS N/A 04/24/17 16:00 05/24/17 15:59 04/27/17 08:00 1 EA Vancomycin HCl 1750 mg/Sodium Chloride 535 ml @ 200 mls/hr Q30H IV 04/24/17 14:00 05/04/17 13:59 04/27/17 01:58 200 MLS/HR Heparin Sodium (Porcine) (Heparin 10 Unit/ ml 5 ml Flush) 5 ml PRN PRN FLUSH 04/24/17 13:45 05/24/17 13:44 04/25/17 17:28 5 ML Insulin Aspart (novoLOG ASPART) SLIDING SCALE G... ACHS SC 04/25/17 07:00 05/25/17 06:59 Glucose (Glucose 40% Gel) 15-30 GRAMS 15 GRAMS... UD PRN PO 04/25/17 07:00 05/25/17 06:59 Glucose (Glucose Chew Tab) 4-8 Tablets 4 Tabl... UD PRN PO 04/25/17 07:00 05/25/17 06:59 Dextrose (Dextrose 50% 50ML Syringe) 25-50ML OF 50% DW IV FOR... UD PRN IV 04/25/17 07:00 05/25/17 06:59 Glucagon (Glucagon Inj) 1 mg UD PRN SQ 04/25/17 07:00 05/25/17 06:59 Furosemide 40 mg/ Syringe 4 ml @ 4 mls/min BID17 IV 04/25/17 17:00 05/25/17 16:59 04/27/17 08:29 4 MLS/MIN Lorazepam (Ativan Tab) 0.5 mg Q6H PRN PO 04/25/17 13:15 05/25/17 13:14 04/26/17 09:22 0.5 MG Oxycodone HCl (Roxicodone Immediate Rel Tab) 20 mg Q4H PRN PO 04/26/17 09:00 05/10/17 08:59 04/26/17 09:52 20 MG Albuterol/ Ipratropium (Duoneb) 3 ml Q4R PRN INH 04/26/17 12:00 05/24/17 19:59 Albuterol/ Ipratropium (Combivent Respimat Inh) 1 puffs QID INH 04/26/17 09:00 05/26/17 08:59 04/27/17 08:30 1 PUFFS Amiodarone HCl (Cordarone Tab) 400 mg BID PO 04/26/17 21:00 05/26/17 20:59 04/27/17 08:34 400 MG Heparin Sodium/ Dextrose 500 ml @ 26 mls/hr [id number] PRN IV 04/26/17 19:30 05/26/17 19:29 04/27/17 11:24 26 MLS/HR Atorvastatin Calcium (Lipitor Tab) 80 mg QAM PO 04/27/17 09:00 05/27/17 08:59 04/27/17 09:40 80 MG Potassium Chloride 10 meq/ Prmx 100 ml @ 100 mls/hr Q1H IV 04/27/17 09:30 04/27/17 13:29 04/27/17 09:40 100 MLS/HR Potassium Chloride (Klor-Con Tab) 20 meq 1200 ONCE PO 04/27/17 12:00 04/27/17 12:01 Objective Vital Signs Date Time Temp Pulse Resp B/P (MAP) Pulse Ox O2 Delivery O2 Flow Rate FiO2 04/27/17 08:28 36.7 56 16 96/69 (78) 96 Nasal Cannula 2.0 04/27/17 08:00 100 Nasal Cannula 2.0 04/27/17 04:00 Nasal Cannula 2.0 04/27/17 03:40 36.8 60 20 99/63 (75) 99 Nasal Cannula 2.0 04/27/17 00:00 Nasal Cannula 2.0 04/26/17 23:38 36.9 55 16 89/57 (68) 99 Nasal Cannula 2.0 04/26/17 20:00 Nasal Cannula 2.0 04/26/17 19:13 36.7 55 18 115/75 (88) 99 Nasal Cannula 2.0 04/26/17 16:00 100 Nasal Cannula 2.0 04/26/17 15:36 36.8 60 18 90/59 (69) 95 Nasal Cannula 2.0 04/26/17 12:00 100 Nasal Cannula 2.0 Physical Exam General Appearance: no apparent distress Eyes: normal inspection, sclerae normal Respiratory/Chest: lungs clear, + decreased breath sounds Cardiovascular: + pertinent finding (irregular rhythm; regular rate) Abdomen: normal bowel sounds, non tender, soft Extremities: + swelling (2+ b/l LEs), + pertinent finding (L buttocks ulcer; L and R dorsal thumb region wounds (dressing intact); L BKA posterior aspect 5cm lac dressing intact; R loya, lateral foot and great toe healing wounds ( dressing intact)) Neurologic/Psychiatric: alert Skin: warm/dry Laboratory Results 04/27/17 06:03 04/27/17 06:03 Test 04/26/17 16:20 04/27/17 06:03 04/27/17 10:39 Bedside Glucose 112 mg/dl (70-99) Red Blood Count 3.14 M/uL (4.7-6.1) Mean Corpuscular Volume 100.3 fL (80-100) Mean Corpuscular Hemoglobin 31.2 pg (25-34) Mean Corpuscular Hemoglobin Concent 31.1 g/dl (32-36) RDW Standard Deviation 52.9 fL (36.4-46.3) RDW Coefficient of Variation 14.6 % (11.5-14.5) Mean Platelet Volume 9.6 fL (7.4-10.4) Anion Gap 6.0 mmol/L (3-11) Est Creatinine Clear Calc Drug Dose 94.5 ml/min Estimated GFR () 101.4 Estimated GFR (Non- 87.5 BUN/Creatinine Ratio 16.2 (10-20) Calcium Level 8.3 mg/dl (8.5-10.1) Magnesium Level 2.1 mg/dl (1.8-2.4) Activated Partial Thromboplast Time 70.2 SECONDS (21.0-31.0) Partial Thromboplastin Ratio 2.7 Assessment and Plan 66 [place]F [place], with PMHx of CAD bypass x 2 - history of [place], chronic sCHF- EF 25-30%, VT- AICD placement, gout, prostate CA, COPD, chronic AF, HLD, HTN, factor V Leiden mutation and h/o PE, Renetta's syndrome, severe PAD s/p L BKA, s/p R iliac profundoplasty and stent, chronic troponin elevation, recurrent UTIs, GERD, and anxiety, admitted for dyspnea, and elevated troponin s /p defibrillation from IVCD x 5. Of note: recent admission for proteus/MRSA groin abscess in 03/22 with continued IV vanc and rocephin treatment. Asymptomatic elevation of troponin: consistent with Ischemia leading to Vfib for which defib discharged - troponin downtrended to 10.8 from peak of 28.5 - Pacer interrogated - torsades vs. Vfib - EKG no acute ischemic changes or ectopy - ECHO: EF 25-30%, no new wall motion abnormality, mildly dilated LV with severely reduced SF, mod dil RV w/t severely reduced SF - Cardiology consulted - Amiodarone changed to PO - 400mg BID continue for total 10 days - Cardiac cath today - Impression: Severe CAD involving the distal LM CA, akhiok RCA, ostial PDA; Occluded mid GALDAMEZ; Patent SVG to PDA with 30% mid SVG narrowing; No aortic stenosis; Mildly elevated LVEDP; Agitation with Versed. - F/u outpt with Dr. Sarmiento for Vfib - Monitor electrolytes/BMP Acute on chronic bi-ventricular CHF exacerbation given dyspnea and VO status - diuresing well with improved sob - CXR L sided worsening pleural effusion, cardiomegaly and moderate volume overload - IV Lasix 60mg one - Continue Lasix 40mg IV BID - Strict Is/Os; daily weights; low sodium diet - monitor electrolytes/BMP R groin MRSA and Proteus mirabilis cellulitis (cultures 03/30/17) s/p R iliac profundoplasty and stent by Dr. Gomez in November 2016 and L buttock collection/ abscess - CT abdomen and pelvis w/ot contrast: no acute osteomyelitis, L gluteal ulcer increased in size to 7.1 & 5.6cm ill defined margins focal phlegmon/abscess; R inguinal fluid collection decreased; small b/l pleural effusion, bibasilar opacity - atelectasis/pneumonitis, trace abdominal/pelvis ascites (fluid overload); pericholecystic edema/gallbladder distension - US 04/13 - complex heterogenous collection L buttock region 7 [id number] consistent with hematoma/abscess - CT 04/06 2.5cm hematoma/abscess R groin and L posterior though subq fat 8 X5 no evidence of osteo - Continue IV Rocephin + Vancomycin for 4 weeks - Wound care consulted for multiple wounds - ID consult - surgery consult recommended - Surgery consulted for L buttock collection possible debridement - no palpable/visible abscess (likely in the process of developing) - soft tissue cellulitis - wound care - repeat CT if having leukocytosis, fever, erythema/worsening pain - Contact precautions COPD with possible exacerbation - improved dyspnea - Continue home inhaler: advair - Continue home combivent respimat - Duoneb Q4H PRN Chronic a.fib, CAD s/p [place], h/o VT w/ AICD, HTN, HLD, PAD, PVD - Continue ASA 81 mg daily, Coreg 9.375 mg daily (can titrate up to 25mg BP allowing per cards), Losartan 25 mg daily (can titrate up to 100 BP allowing per cards), Imdur 60 mg daily, Xarelto 20 mg HS - Zocor 40 mg HS changed to Atorvastatin 80mg - Started on Plavix 75mg daily Electrolytes - monitor Mag, K closely - K 3.1, Mag 2.1 this AM - Potassium chloride 20meq QAM - Received KCL IV 10meq Chronic pain/neuropathy - Gabapentin 600mg HS and 200mg QAM - Fentanyl 50 mcg patch Q72H - Tylenol 1g BID Migraine - Topiramate 100mg BID - Monitor for anion gap metabolic acidosis Anxiety - Continue Zoloft 200 mg daily - Ativan 0.5mg Q6H PRN Gout - Continue Allopurinol 100 mg daily Factor V Leiden mutation and h/o PE - Continue Xarelto 20mg HS Anemia - macrocytic - Hgb stable at baseline - MCV 100 - iron studies done recently - Ordered folate and B12 nl - Dced ferrous sulfate BID PO - recommend outpt heme consult GERD, GI prophylaxis - Continue Zantac 150 mg BID DVT prophylaxis: On heparin IV, Xarelto on hold for cardiac cath Resident Physician Supervision Note: I interviewed and examined the patient. Discussed with Dr. Lo and agree with findings and plan as documented in the note. Any exceptions or clarifications are listed here: None Documented By: Ras Franco feeling ok understandably upset with severe CAD noted on cath, but accepting of situation for med management most likely vitals noted nad breathing unlabored no pallor or icterus NSTEMI / vtach / defib fire, severe CAD -cardiology reviewing for ?possible interventions - but most likely will be med managemetn only escalated statin to lipitor, add plavix, follow can resume xarelto tonight as long as no bleeding from wrist Resident Involvement: Resident Care Provided Care Provided: Adult Hospital Medicine
[2017-04-27] MEDS ORDERED: POTASSIUM CHLORIDE 20 MEQ TABCR PO ONE (12:00)
--- NOTE | 2017-04-27 12:07 | Surgery Progress Note ---
Surgery Progress Note Date of Service Apr 27, 2017. Subjective no new complaints. Objective Vital Signs: Date Time Temp Pulse Resp B/P (MAP) Pulse Ox O2 Delivery O2 Flow Rate FiO2 04/27/17 08:28 36.7 56 16 96/69 (78) 96 Nasal Cannula 2.0 04/27/17 08:00 100 Nasal Cannula 2.0 04/27/17 04:00 Nasal Cannula 2.0 04/27/17 03:40 36.8 60 20 99/63 (75) 99 Nasal Cannula 2.0 04/27/17 00:00 Nasal Cannula 2.0 04/26/17 23:38 36.9 55 16 89/57 (68) 99 Nasal Cannula 2.0 04/26/17 20:00 Nasal Cannula 2.0 04/26/17 19:13 36.7 55 18 115/75 (88) 99 Nasal Cannula 2.0 04/26/17 16:00 100 Nasal Cannula 2.0 04/26/17 15:36 36.8 60 18 90/59 (69) 95 Nasal Cannula 2.0 General Appearance: no apparent distress Respiratory/Chest: no respiratory distress, no accessory muscle use Abdomen: non tender, non distended, soft Extremities: + pertinent finding (buttock ulcer essentially unchanged. I still see no true fluid collection to drain.) Laboratory Results: Results Past 24 Hours Test 04/26/17 16:20 04/26/17 20:59 04/27/17 03:20 04/27/17 06:03 Range/Units Bedside Glucose 112 70-99 mg/dl Activated Partial Thromboplast Time 38.3 82.2 21.0-31.0 SECONDS Partial Thromboplastin Ratio 1.5 3.2 White Blood Count 5.87 4.8-10.8 K/uL Red Blood Count 3.14 4.7-6.1 M/uL Hemoglobin 9.8 14.0-18.0 g/dL Hematocrit 31.5 42-52 % Mean Corpuscular Volume 100.3 80-100 fL Mean Corpuscular Hemoglobin 31.2 25-34 pg Mean Corpuscular Hemoglobin Concent 31.1 32-36 g/dl RDW Standard Deviation 52.9 36.4-46.3 fL RDW Coefficient of Variation 14.6 11.5-14.5 % Platelet Count 196 130-400 K/uL Mean Platelet Volume 9.6 7.4-10.4 fL Sodium Level 139 136-145 mmol/L Potassium Level 3.1 3.5-5.1 mmol/L Chloride Level 101 98-107 mmol/L Carbon Dioxide Level 32 21-32 mmol/L Anion Gap 6.0 3-11 mmol/L Blood Urea Nitrogen 15 7-18 mg/dl Creatinine 0.90 0.60-1.40 mg/dl Est Creatinine Clear Calc Drug Dose 94.5 ml/min Estimated GFR () 101.4 Estimated GFR (Non- 87.5 BUN/Creatinine Ratio 16.2 10-20 Random Glucose 100 70-99 mg/dl Calcium Level 8.3 8.5-10.1 mg/dl Magnesium Level 2.1 1.8-2.4 mg/dl Test 04/27/17 10:39 Range/Units Activated Partial Thromboplast Time 70.2 21.0-31.0 SECONDS Partial Thromboplastin Ratio 2.7 Assessment & Plan no true fluid collection to drain on left buttock could still develop afebrile and wbc normal cont local wound care call if pt develops worse pain, fever, leukocytosis without know etiology.
--- NOTE | 2017-04-27 13:26 | Pre Sedation Assessment ---
Pre Sedation Assessment General Date of Sedation: Apr 27, 2017. Vital Signs Past 12 Hours Date Time Temp Pulse Resp B/P (MAP) Pulse Ox O2 Delivery O2 Flow Rate FiO2 04/27/17 12:00 100 Nasal Cannula 2.0 04/27/17 12:00 37.3 54 20 105/70 (82) 98 Nasal Cannula 2.0 04/27/17 08:28 36.7 56 16 96/69 (78) 96 Nasal Cannula 2.0 04/27/17 08:00 100 Nasal Cannula 2.0 04/27/17 04:00 Nasal Cannula 2.0 04/27/17 03:40 36.8 60 20 99/63 (75) 99 Nasal Cannula 2.0 Review Cardiovascular: regular rate, rhythm Lungs: lungs clear Pre-Sedation Airway Assessment Smoking Status: Former Smoker Mallampati Classification: Class II Procedure Planning Contraindications for Sedation: None Current Medications Reviewed: Yes Notes The planned sedation has been discussed with the patient. Informed Consent was obtained. I have identified the patient, determined the appropriateness of sedation and have assessed the patient immediately prior to the procedure. All medicine(s) and interventions are by my order.
[2017-04-27] MEDS ORDERED: HEPARIN SOD (PORCINE) 1000 UNIT/ML 10 ML VIAL ONE (13:33)
[2017-04-27] MEDS ORDERED: NiCARDipine HCL INJ 2.5 MG/ML 10 ML AMP ONE (13:33)
[2017-04-27] MEDS ORDERED: NITROGLYCERIN/D5W 100MCG/ML 20ML SYR ONE (13:34)
[2017-04-27] MEDS ORDERED: MIDAZOLAM HCL 1 MG/ML 2ML VIAL ONE ×2 (13:35→14:07)
[2017-04-27] MEDS ORDERED: FENTANYL CITRATE INJ 50 MCG/1 ML 2 ML VIAL ONE (13:35)
[2017-04-27] MEDS ORDERED: DiphenhydrAMINE HCL 50 MG/ML VIAL ONE (14:12)
--- NOTE | 2017-04-27 14:53 | Post Sedation Assessment ---
Post Sedation Assessment General Date of Sedation Apr 27, 2017. Vital Signs: Vital Signs Past 12 Hours Date Time Temp Pulse Resp B/P (MAP) Pulse Ox O2 Delivery O2 Flow Rate FiO2 04/27/17 14:40 62 16 104/48 (66) 98 Nasal Cannula 2 04/27/17 14:25 65 16 106/50 (68) 98 Nasal Cannula 2 04/27/17 12:00 100 Nasal Cannula 2.0 04/27/17 12:00 37.3 54 20 105/70 (82) 98 Nasal Cannula 2.0 04/27/17 08:28 36.7 56 16 96/69 (78) 96 Nasal Cannula 2.0 04/27/17 08:00 100 Nasal Cannula 2.0 04/27/17 04:00 Nasal Cannula 2.0 04/27/17 03:40 36.8 60 20 99/63 (75) 99 Nasal Cannula 2.0 Post Procedure Recovery Score Activity: (2) Moves 4 extremities * Respiration: (2) Deep breath/cough Circulation: (2) +/-20% PreAnes Value Consciousness: (2) Fully Awake Oxygen Saturation: (1) O2 needed for >90% Post Anesthesia Score: 9 Discharge Sedation Level of Care: Fast Track Phase II Post Sedation Plan On clinical assessment, the patient appears to have tolerated the sedation without complications. Patient is recovering as anticipated. Patient will continue to be monitored by nursing and may be discharged when sedation discharge criteria are met per below protocol. Upon Completions of procedure and additional 15 minutes continue every 5 minute vital signs and the P.A.R. score; then discharge to a Phase I or Fast Track to Phase II per the following guidelines: * Discharge Patient to appropriate Phase II area if PAR is 8 or greater or return to pre- procedure baseline. The post - procedure orders will be as directed. * If PAR score is less than 8 or not return to pre-procedure baseline then patient will follow Phase I monitoring till PAR is reached for Phase II. The Phase I may be done in procedure room or may call to secure a Phase I area. * If naloxone or flumazenil are used for reversal, hold in Phase I for an additional 60 -120 minutes before discharge to Phase II. Please call the Sedation Physician to re-evaluate and complete post-note for discharge to Phase II area. Do NOT discharge from procedure sedation or Phase 1 until post- sedation evaluation note is complete by procedure /sedation MD Sedation Discharge Instructions to be given to the patient at discharge to home.
--- NOTE | 2017-04-27 14:54 | Consultant Recommendations ---
Predatory Animal Trapper Recommendations Date of Service Apr 27, 2017. Predatory Animal Trapper Recommendations ACTIVITY RECOMMENDATIONS: Excess manipulation of the wrist should be avoided for the next 24-48 hours. * No lifting over 2 pounds (approximately a 1/2 gallon of milk) with the utilized arm for 24 hours. * No strenuous activity such as bowling or tennis for 3 days. * Keep the site of the procedure covered with a bandage for 24 hours. *You may shower the day after the procedure. Do not take a tub bath or submerge the puncture site in water for the next 3 days. *Do not operate any motorized equipment for 3 days. SPECIAL CARE INSTRUCTIONS: The site may be slightly bruised and sore following your procedure. Should any of the following occur, contact the Dr. who performed your procedure. 1. Redness/inflammation, swelling, chills, or fever, or colored drainage at procedure site within 3-7 days after your procedure. 2. Coldness, discoloration, ongoing numbness, severe pain, or swelling. Expect mild tingling of hand and tenderness at the puncture site for up to three days. If this persists beyond three days, or other symptoms develop, notify the Dr. who performed your procedure. BLEEDING: If the procedure site on your wrist begins to bleed, do not panic 1. Place 1 or 2 fingers firmly just slightly above the insertion site to stop the bleeding. You may be able to feel your pulse as you hold pressure. 2. Lift your finger after 5 minutes to see if the bleeding has stopped. 3. Once the bleeding has stopped, gently wipe the wrist area clean with a bandage. * If the bleeding from your wrist does not stop after 10 minutes, or if there is a large amount of bleeding or spurting, call 911 ([address] not drive yourself to the hospital). SKIN IRRITATION: * You may experience some redness and/or swelling in the area where radiation was administered. If any skin irritation occurs, please contact your family physician. FOLLOW UP VISIT: Keep any scheduled doctor appointments.
--- NOTE | 2017-04-27 15:34 | Cardiac Catheterization ---
Procedure Note Procedure Date Apr 27, 2017. Pre-Procedure Diagnosis Non STEMI, Arrhythmia (VFib) AUC Score 8 Post-Procedure Diagnosis Severe CAD, Elevated Intracardiac Pressures Procedure(s) Performed Coronary Angiography, Left Heart Cath, Bypass Graft Angiography [employer] Dr. Vides Scanning Clerk(s) Yani Estimated Blood Loss < 25 ml Medication(s) Fentanyl, Heparin, Nicardipine, Versed, Lidocaine 1%, Diphenhydramine Summary of Findings Coronary angiography: 1. Left main coronary artery: The left main coronary artery is a large caliber vessel with distal 99% stenosis. There is YVONNE 3 flow across the lesion. 2. Left anterior descending: The LAD is a medium caliber vessel that does not extend to the apex. Early mid LAD 50%. It gives rise to a medium caliber branching D1 and a larger caliber branching D2. The mid to distal LAD is small caliber. 3. Circumflex: The circumflex is a large caliber vessel. It gives rise to OM1 and OM2 which are small to medium in caliber. No significant CAD within the circumflex system. 4. Right coronary artery: The RCA is large and dominant. Proximal RCA 50% stenosis with a large calcified plaque burden. This is followed by another 60% stenosis. The mid RCA is diffusely diseased 40-50%. Distal RCA 90%. The PDA is occluded at the ostium. There is a very large caliber posterior lateral branch without significant CAD. Coronary artery bypass graft angiography: 1. GALDAMEZ to LAD: The G[place] appears to be a small caliber vessel proximally and becomes atretic and occluded in the midportion. 2. SVG to PDA: There is a 30% smooth narrowing in the mid SVG. The SVG is otherwise patent. There is faint retrograde flow to the posterior lateral branch. Left heart catheterization: 1. Left ventriculography was not performed as he has had a recent echocardiogram. 2. LVEDP is mildly elevated. LVEDP 18 mmHg. 3. No aortic stenosis. Sedation start time: 1:50 p.m. Sedation end time: 2:25 p.m. Procedural details: 1. He was noted to be mildly hypotensive with systolic blood pressure in the 80s , which was noted before angiography was performed. He was given 200 mL normal saline boluses x2. 2. He became uncomfortable laying in the same position and therefore Versed 1 mg IV was given. His uncomfortableness continued and therefore Versed and fentanyl was given for sedation. Unfortunately, he became more agitated following Versed. Benadryl 25 mg IV was also given. Impression: 1. Severe CAD involving the distal LM CA, [place] RCA, ostial PDA. 2. Occluded mid GALDAMEZ. 3. Patent SVG to PDA with 30% mid SVG narrowing. 4. No aortic stenosis. 5. Mildly elevated LVEDP. 6. Agitation with Versed. Plan: 1. Continue medical therapy. 2. Could consider CT surgery evaluation or high risk PCI. This was discussed with patient's , who has initially opted for medical therapy. Hemodynamics Rest Ao: 95/55 Final Ao: 91/49 LV: 88/5/18 Recommendations Medical therapy and/or Counseling (discussed other options as above.) Specimens None Radiation Exposure (mGy) 2022 mGy. Fluoro time 5.1 min Contrast (mls) 100 ml Procedural Complication(s) None Disposition PCU ACC Data Cardiac Status Clinical evaluation leading to the procedure CAD Presntation: Non STEMI Anginal Classification: No symptoms (vfib) Heart Failure: Yes, NYHA Class: CCS III Cardiogenic Shock w/in 24Hrs: No Cardiac Arrest w/in 24Hrs: No Imaging studies past 6 months: Yes Stress studies past 6 months: No Standard Exercise Stress Test: No Stress Echocardiogram: No Stress Testing w/SPECT MPI: No Cardiac CTA: No Coronary Anatomy Dominant: Right Left Main (% Stenosis): Distal (99%) LAD (% Stenosis): Mid (50%) D1 (% Stenosis): Normal D2 (% Stenosis): Normal Circumflex (% Stenosis): Normal OM1 (% Stenosis): Normal OM2 (% Stenosis): Normal RCA (% Stenosis): Proximal (50% and 60%), Mid (40-50%), Distal (90%) R PDA (% Stenosis): Ostial (100%) R PL1 (% Stenosis): Normal Grafts - LAD (%): Mid (100%) Grafts - RCA (%): Mid (30% smooth narrowing) Left Ventricular Angiography EF (%): n/a Diagnostic Physician's Name: Domenico Vides MD Status: Elective Closure Device Percutaneous Entry Location: Radial Closure Device: Radial Band Recommendations: Medical therapy and/or Counseling (medical therapy vs high risk PCI vs CT surgery evaluation)
[2017-04-27] MEDS ORDERED: CLOPIDOGREL BISULFATE 75 MG TAB PO ONE (16:15)
[2017-04-27] MEDS: RIVAROXABAN 20 MG TAB PO SCH (19:54)
[2017-04-27] MEDS: LORAZEPAM 0.5 MG TAB PO PRN (21:09)
[2017-04-27] MEDS: GABAPENTIN 600 MG TAB PO SCH (21:12)
[2017-04-28 04:00] VITALS: BP 92/63; PULSE 52; TEMP 37.1; O2SAT 100
[2017-04-28 07:26] VITALS: BP 94/50; PULSE 56; TEMP 36.6; O2SAT 100
[2017-04-28] MEDS ORDERED: VANCOMYCIN TROUGH ONE (07:30)
[2017-04-28 08:21] LABS: HEMOGLOBIN 9.8 g/dL (14.0-18.0); MEAN CELL VOLUME 101.3 fL (80-100); MEAN CORPUSCULAR HGB CONC 30.6 g/dl (32-36); PLATELET COUNT 218 K/uL (130-400); RED CELL DISTRIBUTION WIDTH CV 14.6 % (11.5-14.5); RED CELL DISTRIBUTION WIDTH SD 53.5 fL (36.4-46.3); WHITE BLOOD COUNT 6.17 K/uL (4.8-10.8)
[2017-04-28 08:45] LABS: CREATININE 0.77 mg/dl (0.60-1.40)
[2017-04-28 08:46] LABS: CALCIUM 8.7 mg/dl (8.5-10.1); POTASSIUM 3.2 mmol/L (3.5-5.1)
[2017-04-28] MEDS: INSULIN ASPART 100 UNITS/ML 3 ML PEN SC SCH ×2 (08:51→11:41)
[2017-04-28] MEDS: LOSARTAN POTASSIUM 25 MG TAB PO SCH (09:00)
[2017-04-28] MEDS: CARVEDILOL 3.125 MG TAB PO SCH (09:00)
[2017-04-28] MEDS ORDERED: CLOPIDOGREL BISULFATE 75 MG TAB PO SCH (09:00)
[2017-04-28] MEDS: ASPIRIN 81 MG ECTAB PO SCH (09:02)
[2017-04-28] MEDS: VANCOMYCIN INJ 1,750 MG in SODIUM CHLORIDE 0.9% 500ML 500 ML IV SCH (09:02)
[2017-04-28] MEDS: SERTRALINE HCL 100 MG TAB PO SCH (09:03)
[2017-04-28] MEDS: ATORVASTATIN 40 MG TAB PO SCH (09:03)
[2017-04-28] MEDS: AMIODARONE 200 MG TAB PO SCH (09:03)
[2017-04-28] MEDS: ALLOPURINOL 100 MG TAB PO SCH (09:03)
[2017-04-28] MEDS: FLUTICASONE/SALMETEROL (ADVAIR) 500/50 INH 14 PUFF INH SCH (09:04)
[2017-04-28] MEDS: RANITIDINE HCL 150 MG TAB PO SCH (09:04)
[2017-04-28] MEDS: TOPIRAMATE 100 MG TAB PO SCH (09:04)
[2017-04-28] MEDS: POTASSIUM CHLORIDE 20 MEQ TABCR PO SCH (09:04)
[2017-04-28] MEDS: ISOSORBIDE MONONITRATE 60 MG TABCR PO SCH (09:05)
[2017-04-28] MEDS: IPRATROPIUM BROMIDE/ALBUTEROL respimat INH INH SCH ×2 (09:05→12:31)
[2017-04-28] MEDS: FUROSEMIDE INJ 40 MG in SYRINGE 0 ML IV SCH (09:06)
[2017-04-28] MEDS: CEFTRIAXONE SOD INJ 2000 MG in DEXTROSE 5% 50ML IV SCH (09:06)
[2017-04-28] MEDS: GABAPENTIN 100 MG CAP PO SCH (09:07)
[2017-04-28] MEDS: CHECK FENTANYL PATCH PLACEMENT SCH (09:21)
[2017-04-28] MEDS: POTASSIUM CHLR 10 MEQ / WTR 10 MEQ in PREMIXED WATER 100 ML IV SCH ×4 (10:10→12:31)
[2017-04-28] MEDS ORDERED: AMIO200T4 PO (11:08)
[2017-04-28] MEDS ORDERED: PLV75 PO (11:08)
[2017-04-28] MEDS ORDERED: LPT40 PO (11:08)
[2017-04-28] MEDS ORDERED: CRD200 PO (11:08)
--- NOTE | 2017-04-28 11:10 | Discharge Instructions ---
Discharge Instructions Date of Service Apr 28, 2017. Admission Reason for Admission: Defibrillator Discharge,Elevated Troponin Discharge Discharge Diagnosis / Problem: OH ischemia leading to Vfib Discharge Goals Goal(s): Decrease discomfort, Diagnostic testing, Therapeutic intervention Activity Recommendations Activity Limitations: resume your previous activity . Instructions / Follow-Up Instructions / Follow-Up 66 yoF from [facility], with PMHx of CAD bypass x 2 - history of OH, chronic sCHF- EF 25-30%, VT- AICD placement, gout, prostate CA, COPD, chronic AF, HLD, HTN, factor V Leiden mutation and h/o PE, Renetta's syndrome, severe PAD s/p L BKA, s/p R iliac profundoplasty and stent, chronic troponin elevation, recurrent UTIs, GERD, and anxiety, admitted for dyspnea, and elevated troponin s /p defibrillation from IVCD x 5. Of note: recent admission for proteus/MRSA groin abscess in 03/22 with continued IV vanc and rocephin treatment. Asymptomatic elevation of troponin: consistent with Ischemia leading to Vfib for which defib discharged - Continue Amiodarone PO 400mg BID for a total of 7 days. THEN - Amiodarone 200mg BID until he sees cardiology - F/u outpt with Dr. Sarmiento for Vfib within 2 weeks Acute on chronic bi-ventricular CHF exacerbation given dyspnea and VO status - diuresing well with improved sob - low sodium diet - Continue Lasix 60mgPO QAM - follow breathing, check BMP within 2-3 days wean as indicated R groin MRSA and Proteus mirabilis cellulitis (cultures 03/30/17) s/p R iliac profundoplasty and stent by Dr. Gomez in November 2016 and L buttock collection/ abscess - Continue IV Rocephin + Vancomycin for 4 weeks - Wound care - Contact precautions COPD with possible exacerbation - improved dyspnea - Continue home inhaler: advair, albuterol - Continue home combivent respimat Chronic a.fib, CAD s/p OH, h/o VT w/ AICD, HTN, HLD, PAD, PVD - Continue ASA 81 mg daily, Coreg 9.375 mg daily, Losartan 25 mg daily, Imdur 60 mg daily, Xarelto 20 mg HS - Stopped Zocor 40 mg HS - Continue Atorvastatin 80mg HS - Started on Plavix 75mg daily Chronic pain/neuropathy - Gabapentin 600mg HS and 200mg QAM - Fentanyl 50 mcg patch Q72H - Tylenol 1g BID Migraine - Topiramate 100mg BID Anxiety - Continue Zoloft 200 mg daily Gout - Continue Allopurinol 100 mg daily Factor V Leiden mutation and h/o PE - Continue Xarelto 20mg HS Anemia - macrocytic - Hgb stable - Stopped ferrous sulfate BID PO - recommend outpt heme consult GERD, GI prophylaxis - Continue Zantac 150 mg BID Follow up with cardiology within 1-2 weeks Follow up with PCP within 1 week Current Hospital Diet Patient's current hospital diet: AHA Diet (Heart Healthy) Discharge Diet Recommended Diet: AHA Diet (Heart Healthy), Low Sodium Diet (2gm Na) Pending Studies Studies pending at discharge: no List of pending studies: Blood cultures - final pending Laboratory Results Hemoglobin A1c Test 04/25/17 06:31 Range/Units Estimated Average Glucose 131 mg/dl Hemoglobin A1c 6.2 H 4.5-5.6 % Lipid Panel Test 03/23/17 05:10 Range/Units Triglycerides Level 122 0-150 mg/dl Cholesterol Level 123 0-200 mg/dl HDL Cholesterol 26 mg/dl Cholesterol/HDL Ratio 4.7 LDL Cholesterol, Calculated 73 mg/dl Medical Emergencies . Who to Call and When: Medical Emergencies: If at any time you feel your situation is an emergency, please call 911 immediately. . Non-Emergent Contact Non-Emergency issues call your: Primary Care Provider . . "Provider Documentation" section prepared by Miguelito Lo. . Clothing Presser Recommendations Clothing Presser Recommendations: ACTIVITY RECOMMENDATIONS: Excess manipulation of the wrist should be avoided for the next 24-48 hours. * No lifting over 2 pounds (approximately a 1/2 gallon of milk) with the utilized arm for 24 hours. * No strenuous activity such as bowling or tennis for 3 days. * Keep the site of the procedure covered with a bandage for 24 hours. *You may shower the day after the procedure. Do not take a tub bath or submerge the puncture site in water for the next 3 days. *Do not operate any motorized equipment for 3 days. SPECIAL CARE INSTRUCTIONS: The site may be slightly bruised and sore following your procedure. Should any of the following occur, contact the DrEnrique who performed your procedure. 1. Redness/inflammation, swelling, chills, or fever, or colored drainage at procedure site within 3-7 days after your procedure. 2. Coldness, discoloration, ongoing numbness, severe pain, or swelling. Expect mild tingling of hand and tenderness at the puncture site for up to three days. If this persists beyond three days, or other symptoms develop, notify the Dr. who performed your procedure. BLEEDING: If the procedure site on your wrist begins to bleed, do not panic 1. Place 1 or 2 fingers firmly just slightly above the insertion site to stop the bleeding. You may be able to feel your pulse as you hold pressure. 2. Lift your finger after 5 minutes to see if the bleeding has stopped. 3. Once the bleeding has stopped, gently wipe the wrist area clean with a bandage. * If the bleeding from your wrist does not stop after 10 minutes, or if there is a large amount of bleeding or spurting, call 911 (do not drive yourself to the hospital). SKIN IRRITATION: * You may experience some redness and/or swelling in the area where radiation was administered. If any skin irritation occurs, please contact your family physician. FOLLOW UP VISIT: Keep any scheduled doctor appointments. VTE Core Measure Inpt VTE Proph given/why not?: Other Anticoagulation
[2017-04-28 11:56] VITALS: BP 111/71; PULSE 54; TEMP 36.6; O2SAT 100
[2017-04-28 12:12] VITALS: BP 111/71; PULSE 54; TEMP 36.6; O2SAT 100
[2017-04-28 12:40] VITALS: O2SAT 94
[2017-04-28] MEDS ORDERED: FRS/40 PO (14:33)
--- NOTE | 2017-04-28 14:56 | CARDIOLOGY PROGRESS NOTE ---
DATE: 04/28/2017 TIME: 14:32 p.m. SUBJECTIVE: He feels much better. He did have some intermittent shortness of breath, but overall feels well now. He denies angina, syncope, near syncope, or palpitations. His left radial catheterization site has not caused him any discomfort. OBJECTIVE: VITAL SIGNS: Temperature 36.6 degrees, heart rate 54 beats per minute, respiratory rate 19, blood pressure 111/71 mmHg, and oxygen saturation is 100% on room air. I's and O's negative 2.5 liters yesterday. Weight is 98.3 kg. GENERAL: No acute distress. He is alert. NECK: Thick moreno. I cannot assess JVD. CARDIAC EXAM: No ventricular heave. Regular, normal S1 and S2. No audible murmurs, rubs or gallops. LUNGS: Clear to auscultation bilaterally. ABDOMEN: Soft, nontender, and nondistended. Normoactive bowel sounds. EXTREMITIES: 1+ right lower extremity edema in the dependent areas, but edema overall is significantly improved. Trace to 1+ lower extremity edema in the left stump. No cyanosis. MEDICATIONS: Include aspirin 81 mg daily, atorvastatin 80 mg daily, carvedilol 9.375 mg p.o. b.i.d., ceftriaxone 2 grams IV daily, Plavix 75 mg daily, Lasix 40 mg IV b.i.d., isosorbide mononitrate 60 mg daily, losartan 25 mg daily, potassium chloride 20 mEq daily, Xarelto 20 mg daily, and vancomycin IV. Telemetry personally reviewed. No ventricular arrhythmia. LABORATORY DATA: Sodium 139, potassium 3.2, BUN 13, creatinine 0.77, and magnesium 2.1. White blood cell count 6.17, hemoglobin 9.8, and platelets 218. Cardiac catheterization performed yesterday demonstrated distal left main 99%. Early mid LAD 50%. Proximal RCA 50% with large calcified plaque burden followed by 60%. Mid RCA diffusely diseased 40%-50%. Distal RCA 90%. PDA is occluded at the ostium and is filled via SVG to PDA. SVG to PDA has a 30% mid smooth narrowing. GALDAMEZ to LAD is occluded. Mildly elevated LVEDP, LVEDP is 18. ASSESSMENT AND PLAN: 1. Non-ST elevation myocardial infarction: His presentation was concerning for an ischemic event causing his ventricular fibrillation with his elevated troponins. Cardiac catheterization as noted yesterday. Discussed possible treatment strategies such as a CT surgery evaluation, although he does not appear to be an optimal candidate for CT surgery redo. We also discussed high risk PCI of his left main versus medical therapy. His and he agreed to medical therapy only at this time. We discussed the fact that if they change their mind, we could refer to a tertiary care center with CT surgery backup for further evaluation. Continue aspirin 81 mg daily. Continue beta russ and statin therapy. Continue isosorbide mononitrate. 2. Acute on chronic diastolic congestive heart failure: He still hypervolemic, but much improved. He is currently being discharged to his nursing facility. Would recommend Lasix 80 mg p.o. b.i.d. and close followup in cardiology clinic, which is scheduled for next week with Dr. Sarmiento, his primary bricklayer supervisor. Continue low sodium diet, strict I's and O's and daily weights, while hospitalized. Recommend daily weights and low sodium diet as an outpatient. 3. Ventricular fibrillation, status post ICD shock x5: Continue amiodarone 400 mg p.o. b.i.d. for a total 10-day loading dose and then reduce to 200 mg twice daily or 400 mg once daily. This will then be followed and adjusted as appropriate by Dr. Sarmiento, his print developer automatic and primary bricklayer supervisor. 4. Atrial fibrillation/flutter: Continue Xarelto. Continue beta russ. 5. Coronary artery disease of [place] vessel and bypass graft: His GALDAMEZ to LAD is occluded. Continue current treatment strategy. Plavix can be discontinued as he has not had any recent PCI and there was significantly increased risk of bleeding while on aspirin, Plavix and Xarelto. 6. Cardiomyopathy: Ischemic cardiomyopathy. He has an ICD in place. Could further attempt to titrate his medications; however, his medications have actually been held intermittently here due to hypotension. No changes made at this time as he is currently being discharged, but would recommend continuation of his home dose of carvedilol and losartan unless he has symptomatic hypotension or the systolic blood pressure is less than 90. Further titration will be made by Dr. Sarmiento when he follows up in the outpatient setting. 7. Disposition: Close followup with Dr. Sarmiento is scheduled for next week. He will have labs ordered to be done prior to that appointment. Plan of care has been discussed with Dr. Franco of the primary hospitalist service.
--- NOTE | 2017-04-28 19:08 | Discharge Summary ---
Discharge Summary Date of Service Apr 28, 2017. Discharge Summary Admission Date: Apr 24, 2017 at 15:34 Discharge Date: Apr 28, 2017 Discharge Disposition: [facility] facility Principal Diagnosis: ischemia with elevated troponin and subsequent Vfib Problems/Secondary Diagnoses: R groin MRSA/proteus mirabilis cellulitis s/p R iliac profundoplasty and stent by Dr. Gomez in Nov 2016 Acute on chronic bi-ventricular CHF exacerbation COPD with possible exacerbation Paroxysmal Afib CAD s/p IL VT with AICD HTN HLD PAD PVD anxiety migraine gout factor V leiden mutation and h/o PE anemia macrocytic GERD Immunizations: Have You Had Influenza Vaccine: Yes Influenza Vaccine Date: Apr 16, 2012 History of Tetanus Vaccine?: No History of Pneumococcal: Yes Pneumococcal Date: Feb 03, 2007 History of Hepatitis B Vaccine: No Procedures: Cardiac CATH Coronary angiography: 1. Left main coronary artery: The left main coronary artery is a large caliber vessel with distal 99% stenosis. There is YVONNE 3 flow across the lesion. 2. Left anterior descending: The LAD is a medium caliber vessel that does not extend to the apex. Early mid LAD 50%. It gives rise to a medium caliber branching D1 and a larger caliber branching D2. The mid to distal LAD is small caliber. 3. Circumflex: The circumflex is a large caliber vessel. It gives rise to OM1 and OM2 which are small to medium in caliber. No significant CAD within the circumflex system. 4. Right coronary artery: The RCA is large and dominant. Proximal RCA 50% stenosis with a large calcified plaque burden. This is followed by another 60% stenosis. The mid RCA is diffusely diseased 40-50%. Distal RCA 90%. The PDA is occluded at the ostium. There is a very large caliber posterior lateral branch without significant CAD. Coronary artery bypass graft angiography: 1. GALDAMEZ to LAD: The GALDAMEZ appears to be a small caliber vessel proximally and becomes atretic and occluded in the midportion. 2. SVG to PDA: There is a 30% smooth narrowing in the mid SVG. The SVG is otherwise patent. There is faint retrograde flow to the posterior lateral branch. Left heart catheterization: 1. Left ventriculography was not performed as he has had a recent echocardiogram. 2. LVEDP is mildly elevated. LVEDP 18 mmHg. 3. No aortic stenosis. Sedation start time: 1:50 p.m. Sedation end time: 2:25 p.m. Procedural details: 1. He was noted to be mildly hypotensive with systolic blood pressure in the 80s , which was noted before angiography was performed. He was given 200 mL normal saline boluses x2. 2. He became uncomfortable laying in the same position and therefore Versed 1 mg IV was given. His uncomfortableness continued and therefore Versed and fentanyl was given for sedation. Unfortunately, he became more agitated following Versed. Benadryl 25 mg IV was also given. Impression: 1. Severe CAD involving the distal LM CA, [place] RCA, ostial PDA. 2. Occluded mid GALDAMEZ. 3. Patent SVG to PDA with 30% mid SVG narrowing. 4. No aortic stenosis. 5. Mildly elevated LVEDP. 6. Agitation with Versed. Plan: 1. Continue medical therapy. 2. Could consider CT surgery evaluation or high risk PCI. This was discussed with patient's , who has initially opted for medical therapy. ABDOMEN AND PELVIS CT WITHOUT CONTRAST CT DOSE: 851.41 mGy.cm HISTORY: Left gluteal fluid collection. ultrasound- large buttock collection/possible abscess TECHNIQUE: Multiaxial CT images of the abdomen and pelvis were performed without contrast. A dose lowering technique was utilized adhering to the principles of ALARA. COMPARISON STUDY: Ultrasound 04/13/[address] 04/06/2017, CTA 05/08/2016. FINDINGS: Trace bilateral pleural effusions with bibasilar subsegmental consolidation. No pneumatosis or pneumoperitoneum identified. Imaged inferior cardiac chambers are moderately enlarged. Pacer leads are noted overlying the right heart. Coronary arterial disease. Left ventricular atypical papillary muscle calcifications are noted. There is minimal marginal nodularity of the liver. Ill-defined low attenuating lesion of the lateral left hepatic lobe measures 11 mm, which is nonspecific and unchanged possibly reflecting a hepatic cyst. Gallbladder is mildly distended with trace pericholecystic fluid. Moderate nonspecific bilateral perinephric edema. Trace fluid is also seen tracking along the pericolic gutters and layering within the dependent pelvis. Spleen and right adrenal gland are unremarkable. Nodularity of the left adrenal gland suggests hyperplasia. Moderate to severe generalized pancreatic atrophy. Area of probable remote scarring involves the inferior pole left kidney. Mild atrophy of the left kidney compared to the right. No renal calculi or hydronephrosis. Rincon catheter is noted within a collapsed urinary bladder lumen. Moderate perivesicular inflammatory stranding. Moderate atherosclerosis of the abdominal aorta with mild fusiform aneurysm dilation measuring 3.0 x 2.9 cm just proximal to the iliac bifurcation. Right common iliac arterial stent graft is noted. No bulky adenopathy identified within the abdomen or pelvis. There is no bowel obstruction or focal bowel wall thickening identified. Moderate stool volume of the rectosigmoid. No evidence of acute diverticulitis. The appendix is not identified. No secondary signs of acute appendicitis. Mild body wall edema is noted throughout. Previously noted fluid collection of the right inguinal region measuring 2.6 cm has decreased in size, now measuring 1.6 x 0.9 cm on image 478 series 3. Left gluteal skin ulceration is noted with ill-defined fluid collection measuring approximately 7.1 x 5.2 cm, previous measuring approximately 5.6 x 5.1 cm and study dated 04/06/2017 1 measured in a similar fashion. There is associated skin thickening suggesting sialitis within this distribution. No subcutaneous or deep tissue air to suggest fasciitis. Inflammatory changes extend into the adjacent gluteal musculature as seen on image 551 series 3 which appears unchanged. Chronic appearing fragmentation is noted within the region of the proximal left hamstring musculature and ischial tuberosity suggesting dystrophic calcifications. Remote bilateral pelvic ring fractures redemonstrated. Degenerative changes of the hips and lower lumbar spine are noted without acute fracture or subluxation. Levoscoliosis of the lumbar spine. No erosive changes to suggest acute osteomyelitis. IMPRESSION: 1. Left gluteal ulcer again seen with ill-defined collection of the left gluteal tissues slightly increased in size from comparison study now measuring up to 7.1 cm, previously measuring up to 5.6 cm when measured in a similar fashion. This suggests focal phlegmon or abscess without well-defined margins. There is likely associated left gluteal musculature myositis and/or phlegmon extension. 2. Decreased size of fluid collection of the right inguinal region as above. 3. Small bilateral pleural effusions with mild diffuse body wall edema and trace abdominal pelvic ascites suggest fluid overload. 4. Subsegmental bibasilar consolidative opacities suggest atelectasis or pneumonitis. 5. Mild gallbladder distention with pericholecystic edema, likely also related to aforementioned sequela of fluid overload. Correlate with clinical exam. 6. Additional findings as above. SINGLE VIEW CHEST CLINICAL HISTORY: Sepsis. FINDINGS: An AP, portable, upright chest radiograph is compared to study dated 04/07/2017 and correlated with chest CT dated 01/13/2017. The examination is degraded by portable technique and patient rotation. A single lead cardiac AICD is unchanged in position and partially obscures the left upper chest. A right PICC line is again noted. The patient is status post midline sternotomy. The heart is enlarged and there is atherosclerotic calcification of the thoracic aorta. There is pulmonary vascular congestion. Emphysema and chronic interstitial thickening are similar to previous. There is a small left pleural effusion with opacification of the left lung base. No pneumothorax is seen. The skeletal structures are osteopenic. The bony thorax is grossly intact. Surgical clips are noted in the right axilla. IMPRESSION: 1. Cardiomegaly and AICD with evidence of congestive failure. 2. Emphysema. 3. Chronic opacities at the left lung base likely represent scarring/pleural parenchymal change. Correlate clinically for evidence of superimposed pneumonia. 4. A small left pleural effusion is noted. Consultations: cardiology-Dr. Kellogg Medication Reconciliation New Medications: Amiodarone Hcl (Cordarone) 200 Mg Tab 200 MG PO BID for 30 Days, #60 TAB Furosemide (Lasix) 40 Mg Tab 80 MG PO BID, #60 TAB 80mg bid until f/u BMP and ongoing direction from PCP and CHF clinic Amiodarone HCl (Amiodarone HCl) 200 Mg Tab 400 MG PO BID for 7 Days, #28 TAB Atorvastatin (Lipitor) 40 Mg Tab 80 MG PO QAM for 30 Days, #60 TAB Continued Medications: Acetaminophen (Tylenol) 500 Mg Tab 1000 MG PO BID, TAB Acetaminophen Tab (Tylenol) 325 Mg Tab 650 MG PO Q6H PRN for Pain Albuterol Sulfate (Proair Respiclick) 108 Mcg/Act Aer 2 PUFFS INH Q6 PRN for SOB/Wheezing Allopurinol (Zyloprim) 100 Mg Tab 100 MG PO QAM, TAB Aluminum/Magnesium/Simeth (Maalox Max Susp) Susp 30 ML PO Q6 PRN for DYSPEPSIA Artificial Tear Solution (Artificial Tears) 1 Kika Kika 2 DROPS OP QID PRN for DRY EYES, #30 ML 5 Refills Aspirin (Aspirin Ec) 81 Mg Tab 81 MG PO QAM Bisacodyl (Dulcolax) 10 Mg Sup 1 SUPP MT UD PRN for Constipation Carvedilol (Carvedilol) 3.125 Mg Tab 9.375 MG PO BID Ceftriaxone Sod (Rocephin) 1 Gm Inj 2 GM IV QD, VIAL Fentanyl (Fentanyl) 50 Mcg Tdsy 50 MCG TD [id number] CHANGE WEDNESDAY Fluticasone Prop/Salmeterol (Advair Diskus 500/50 60 Dose) 1 Ea Aerp 1 PUFFS INH BID for 30 Days, #1 INHALER 5 Refills Gabapentin (Neurontin) 100 Mg Cap 200 MG PO QAM, CAP Gabapentin (Neurontin) 600 Mg Tab 600 MG PO HS Guaifenesin (Robitussin) 100 Mg/5 Ml Kika 10 ML PO Q6H PRN for Cough diabetic tussin 100mg/5ml Ipratropium-Albuterol (Combivent Respimat) 1 Aer Aer 1 PUFFS INH Q6H, INH WHILE AWAKE Isosorbide Mononitrate Ext Rel (Imdur Ext Rel) 60 Mg Ertab 60 MG PO QAM, TAB Losartan Potassium (Cozaar) 25 Mg Tab 25 MG PO QAM, TAB Magnesium Hydroxide (Milk Of Magnesia) 30 Ml Susp 30 ML PO PRN for Constipation, ML day 2 per protocol Oxycodone HCl (Oxycodone HCl) 20 Mg/1 Ml Soln 20 MG PO Q4H PRN for UD MODERATE TO SEVERE PAIN Polyvinyl Alcohol (Artificial Tears) 1.4 % Kika 2 DROPS OPB QID PRN for DRYNESS Potassium Chloride (Micro-K Ext Rel) 10 Meq Capcr 20 MEQ PO QAM, CAP Prune Juice (Prune Juice ) Liqd 8 OZ PO prune juice, prunes or other fiber on day 1 of protocol per pt preference Ranitidine Hcl (Zantac) 150 Mg Tab 150 MG PO BID, TAB Rivaroxaban (Xarelto) 20 Mg Tab 20 MG PO HS, TAB Sertraline (Zoloft) 100 Mg Tab 200 MG PO QAM, TAB Sodium Phosphate/Biphosphate (Fleet Enema) Veronica 1 EA MT DAILY, BTL day four per protocol Topiramate (Topamax) 100 Mg Tab 100 MG PO BID, TAB Vancomycin HCl in Sodium Chlor (VANCOMYCIN in NSS) 1 Inj Inj 1750 MG IV Q30 HOURS, BAG In ml NSS White Petrolatum-Mineral Oil (Genteal Tears Night-Time) 1 Oin Oin 1 DOSE OPB DAILY PRN for DRYNESS APPLY 1/2 INCH RIBBON TO EACH EYE WITH EACH APPLICATION Discontinued Medications: Ferrous Sulfate (Ferrous Sulfate) 325 Mg Tab 325 MG PO BID TAKE WITH FOOD Simvastatin (Zocor) 40 Mg Tab 40 MG PO QPM, TAB Discharge Exam General Appearance: no apparent distress Eyes: normal inspection, sclerae normal Respiratory/Chest: lungs clear, + decreased breath sounds Cardiovascular: + pertinent finding (irregular rhythm; regular rate) Abdomen: normal bowel sounds, non tender, soft Extremities: + swelling (2+ b/l LEs), + pertinent finding (L buttocks ulcer; L and R dorsal thumb region wounds (dressing intact); L BKA posterior aspect 5cm lac dressing intact; R loya, lateral foot and great toe healing wounds ( dressing intact)) Neurologic/Psychiatric: alert Skin: warm/dry Review of Systems: Constitutional: No fever, No chills Respiratory: No shortness of breath Cardiovascular: No chest pain Abdomen: No pain, No nausea, No vomiting Hospital Course 66 yoF from [facility], with PMHx of CAD bypass x 2 - history of IL, chronic sCHF- EF 25-30%, VT- AICD placement, gout, prostate CA, COPD, chronic AF, HLD, HTN, factor V Leiden mutation and h/o PE, Renetta's syndrome, severe PAD s/p L BKA, s/p R iliac profundoplasty and stent, chronic troponin elevation, recurrent UTIs, GERD, and anxiety, admitted for dyspnea, and elevated troponin s /p defibrillation from IVCD x 5. Of note: recent admission for proteus/MRSA groin abscess in 03/22 with continued IV vanc and rocephin treatment. Asymptomatic elevation of troponin: consistent with Ischemia leading to Vfib for which defib discharged - troponin downtrended to 10.8 from peak of 28.5 - Pacer interrogated - torsades vs. Vfib - EKG no acute ischemic changes or ectopy - ECHO: EF 25-30%, no new wall motion abnormality, mildly dilated LV with severely reduced SF, mod dil RV w/t severely reduced SF - Cardiology consulted - Amiodarone changed to PO 400mg BID continue for total 10 days - discharged with remaining 7 days dose - Prescribed Amiodarone 200mg BID for 30 days until seen by test engine operator - Cardiac cath 04/27 - Impression: Severe CAD involving the distal LM CA, [place] RCA, ostial PDA; Occluded mid GALDAMEZ; Patent SVG to PDA with 30% mid SVG narrowing; No aortic stenosis; Mildly elevated LVEDP; Agitation with Versed. - Family preferred medical management vs. PCI of Left Main given risks involved - F/u outpt with Dr. Sarmiento for Vfib next week - Monitored electrolytes/BMP - recommended checking BMP in 3-4 days by PCP Acute on chronic bi-ventricular CHF exacerbation given dyspnea and VO status - diuresing well with improved sob - CXR L sided worsening pleural effusion, cardiomegaly and moderate volume overload - IV Lasix 60mg one - Received Lasix 40mg IV BID - Discharged with home dosage of Lasix 60mg PO daily - follow breathing and wean as indicated - BMP - recommended checking BMP in 3-4 days by PCP - Strict Is/Os; daily weights; low sodium diet - monitored electrolytes/BMP R groin MRSA and Proteus mirabilis cellulitis (cultures 03/30/17) s/p R iliac profundoplasty and stent by Dr. Gomez in November 2016 and L buttock collection/ abscess - CT abdomen and pelvis w/ot contrast: no acute osteomyelitis, L gluteal ulcer increased in size to 7.1 & 5.6cm ill defined margins focal phlegmon/abscess; R inguinal fluid collection decreased; small b/l pleural effusion, bibasilar opacity - atelectasis/pneumonitis, trace abdominal/pelvis ascites (fluid overload); pericholecystic edema/gallbladder distension - US 04/13 - complex heterogenous collection L buttock region 7 [id number] consistent with hematoma/abscess - CT 04/06 2.5cm hematoma/abscess R groin and L posterior though subq fat 8 X5 no evidence of osteo - Continue IV Rocephin + Vancomycin for 4 weeks - Wound care consulted for multiple wounds - ID consult - surgery consult recommended - Surgery consulted for L buttock collection possible debridement - no palpable/visible abscess (likely in the process of developing) - soft tissue cellulitis - wound care - repeat CT if having leukocytosis, fever, erythema/worsening pain - Contact precautions COPD with possible exacerbation - improved dyspnea - Continued home inhaler: advair - Continued home combivent respimat - Received Duoneb Q4H INOCENCIO then PRN Chronic a.fib, CAD s/p IL, h/o VT w/ AICD, HTN, HLD, PAD, PVD - Continued ASA 81 mg daily, Coreg 9.375 mg daily (can titrate up to 25mg BP allowing per cards), Losartan 25 mg daily (can titrate up to 100 BP allowing per cards), Imdur 60 mg daily, Xarelto 20 mg HS - Zocor 40 mg HS changed to Atorvastatin 80mg HS - Started on Plavix 75mg daily given really bad coronary disease and lack of bleeding history. Discussed risks and benefits with patient and agreed better to protect against known disease and not worry about what may happen. Electrolytes - monitor Mag, K closely - K 3.2, Mag 2.1 this AM - Potassium chloride 40meq QAM received Chronic pain/neuropathy - Gabapentin 600mg HS and 200mg QAM - Fentanyl 50 mcg patch Q72H - Tylenol 1g BID Migraine - Topiramate 100mg BID Anxiety - Continue Zoloft 200 mg daily - Ativan 0.5mg Q6H PRN Gout - Continue Allopurinol 100 mg daily Factor V Leiden mutation and h/o PE - Continue Xarelto 20mg HS Anemia - macrocytic - Hgb stable at baseline - MCV 100 - iron studies done recently - Ordered folate and B12 nl - Dced ferrous sulfate BID PO - recommend outpt heme consult GERD, GI prophylaxis - Continue Zantac 150 mg BID DVT prophylaxis: On heparin IV/Xarelto Resident Physician Supervision Note: I interviewed and examined the patient. Discussed with Dr. Lo and agree with findings and plan as documented in the note. Any exceptions or clarifications are listed here: None Documented By: Ras Franco feeling ok to return to [facility] no further cp explained med management, d/ w cardiology vitals noted nad breathing unlabored no pallor or icterus NSTEMI - caused acute systolic CHF and ventricular arrhythmia that caused ICD to fire -doing better now -med management as above -stable for close outpt f/u for both med management of CAD, and ongoing med management of CHF -anticipate reduction in amiodarone dose next week Total Time Spent: Less than 30 minutes This includes examination of the patient, discharge planning, medication reconciliation, and communication with other providers. Discharge Instructions Please refer to the electronic Patient Visit Report (Discharge Instructions) for additional information. Additional Copies To Sohail Ignacio M.D.
[2017-04-29] MEDS ORDERED: VANCOMYCIN INJ 1,750 MG in SODIUM CHLORIDE 0.9% 500ML 500 ML IV SCH (08:00)
== END 2017-04-28 14:50 | DRG 280 ==
LOC: EDBD 01:06 → C.EDB 01:07 → C.MSICU 05:28 → EDBEDREQ 06:23 → ENRESERV 06:38 → C.2T 15:29 → OBSVTOIN 15:34
PROVIDERS: ADMIT Internal Medicine; ATTEND Family Medicine
PROC: 4A023N7 Measurement of Cardiac Sampling and Pressure, Left Heart, Percutaneous Approach (ICD-10-PCS; principal; 2017-04-27 13:42)
PROC: B2131ZZ Fluoroscopy of Multiple Coronary Artery Bypass Grafts using Low Osmolar Contrast (ICD-10-PCS; principal; 2017-04-27 13:42)
PROC: B2111ZZ Fluoroscopy of Multiple Coronary Arteries using Low Osmolar Contrast (ICD-10-PCS; principal; 2017-04-27 13:42)
DX: I21.4 Non-ST elevation (NSTEMI) myocardial infarction (principal); I50.23 Acute on chronic systolic (congestive) heart failure; J96.21 Acute and chronic respiratory failure with hypoxia; I49.01 Ventricular fibrillation; L89.323 Pressure ulcer of left buttock, stage 3; J44.1 Chronic obstructive pulmonary disease with (acute) exacerbation; I48.92 Unspecified atrial flutter; L03.314 Cellulitis of groin; L02.31 Cutaneous abscess of buttock; I25.810 Atherosclerosis of coronary artery bypass graft(s) without angina pectoris; D68.51 Activated protein C resistance; I45.81 Long QT syndrome; I48.0 Paroxysmal atrial fibrillation; I25.5 Ischemic cardiomyopathy; I11.0 Hypertensive heart disease with heart failure; T82.7XXD Infection and inflammatory reaction due to other cardiac and vascular devices, implants and grafts, subsequent encounter; Y71.2 Prosthetic and other implants, materials and accessory cardiovascular devices associated with adverse incidents; T81.4XXD Infection following a procedure, subsequent encounter; B96.4 Proteus (mirabilis) (morganii) as the cause of diseases classified elsewhere; B95.62 Methicillin resistant Staphylococcus aureus infection as the cause of diseases classified elsewhere; L76.82 Other postprocedural complications of skin and subcutaneous tissue; Y83.8 Other surgical procedures as the cause of abnormal reaction of the patient, or of later complication, without mention of misadventure at the time of the procedure; I25.10 Atherosclerotic heart disease of native coronary artery without angina pectoris; I25.82 Chronic total occlusion of coronary artery; I95.9 Hypotension, unspecified; E11.65 Type 2 diabetes mellitus with hyperglycemia; E11.51 Type 2 diabetes mellitus with diabetic peripheral angiopathy without gangrene; E78.5 Hyperlipidemia, unspecified; K21.9 Gastro-esophageal reflux disease without esophagitis; G62.9 Polyneuropathy, unspecified; G89.29 Other chronic pain; G43.909 Migraine, unspecified, not intractable, without status migrainosus; M10.9 Gout, unspecified; D53.9 Nutritional anemia, unspecified; F32.9 Major depressive disorder, single episode, unspecified; F41.9 Anxiety disorder, unspecified; I25.2 Old myocardial infarction; Z99.81 Dependence on supplemental oxygen; Z95.810 Presence of automatic (implantable) cardiac defibrillator; Z95.1 Presence of aortocoronary bypass graft; Z89.512 Acquired absence of left leg below knee; Z86.711 Personal history of pulmonary embolism; Z86.718 Personal history of other venous thrombosis and embolism; Z87.891 Personal history of nicotine dependence; Z79.82 Long term (current) use of aspirin; Z79.2 Long term (current) use of antibiotics; Z79.51 Long term (current) use of inhaled steroids; Z79.01 Long term (current) use of anticoagulants; Z79.899 Other long term (current) drug therapy

== ENCOUNTER → 2017-04-30 | Outpatient (CLI) | payer OTHER ==
[~2017-04-30] MED LIST changes: +ALBU18002 INH; +AMIO200T4 PO; +ARTISOL12 OP; +CRD200 PO; -FERR325T5 PO; -ISOS60TA2 PO; +ISOS60TA25 PO; +LPT40 PO; -SIMV40TA2 PO; +VANC1INJ94 IV; -vancomycin
[2017-04-30 08:31] LABS: BLOOD UREA NITROGEN 15 mg/dl (7-18); CALCIUM 8.8 mg/dl (8.5-10.1); CARBON DIOXIDE 31 mmol/L (21-32); CREATININE 0.97 mg/dl (0.60-1.40); GLUCOSE 113 mg/dl (70-99); POTASSIUM 3.5 mmol/L (3.5-5.1); SODIUM 138 mmol/L (136-145)
== END ==
LOC: C.LABCC 07:46
PROVIDERS: ATTEND Internal Medicine
DX: N18.9 Chronic kidney disease, unspecified (principal)

== ENCOUNTER → 2017-05-04 | Outpatient (CLI) | payer OTHER ==
--- NOTE | 2017-05-04 12:12 | DIAGNOSTIC IMAGING REPORT ---
R LOWER EXTREMITY WITHOUT CLINICAL HISTORY: 66 years-old Male presenting with RT GROIN CELLULITIS. TECHNIQUE: Multidetector CT of the right lower quadrant was performed without the use of intravenous contrast. IV contrast: None. A dose lowering technique was used consistent with the principles of ALARA (as low as reasonably achievable). COMPARISON: 04/06/2017. CT DOSE (mGy.cm): The estimated cumulative dose is 694.90 mGy.cm. FINDINGS: Irrigation Engineer topogram: Unremarkable. Interval decreased size of the fluid collection along the right inguinal region intimately associated with the site of prior catheterization. Overlying scarring from vascular access evident. Allowing for noncontrast technique, no contour abnormality of the vessels to suggest pseudoaneurysm formation. Few small surrounding reactive lymph nodes in the right inguinal region. There is persistent infiltration of the right inguinal region with minimal overlying skin thickening. Atherosclerosis. Postsurgical changes of prostatectomy. Circumference of bladder wall thickening likely indicates chronic prior outlet obstruction. Allowing for noncontrast technique, the ureteral anastomosis is grossly normal-appearing. No pelvic lymphadenopathy. Degenerative changes of the right hip as previously mentioned. Deformity of the bilateral pubic rami likely posttraumatic. Osteopenia. IMPRESSION: 1. Resolution of previously noted fluid collection in the right inguinal region. This likely represented a small seroma or hematoma after vascular access. 2. Surrounding infiltration at the site of prior vascular access could indicate the presence of cellulitis or reactive scarring. 3. No evidence of an abscess. Electronically signed by: Tariq Kunz M.D. 05/04/2017 12:11 PM Dictated Date/Time: 05/04/2017 12:06 PM
== END | disposition home or self-care (01) ==
LOC: C.CTS 11:14
PROVIDERS: ATTEND Physician Assistant
DX: T81.4XXA Infection following a procedure, initial encounter (principal); L03.314 Cellulitis of groin; Y84.9 Medical procedure, unspecified as the cause of abnormal reaction of the patient, or of later complication, without mention of misadventure at the time of the procedure

== ENCOUNTER 2017-05-15 10:59 | Inpatient (IN) | payer OTHER ==
[~2017-05-15] VITALS: Ht 180.3 cm; Wt 97.8 kg
[~2017-05-15 10:59] MED LIST changes: -FURO-85 PO; -IPRASOL4 INH
--- NOTE | 2017-05-15 12:21 | EMERGENCY ROOM VISIT NOTE ---
History Report prepared by Steve: Stefani Massey Under the Supervision of: Dr. Anu Small M.D. First contact with patient: 11:39 Chief Complaint: SHORTNESS OF BREATH Stated Complaint: SOB/CONFUSED History of Present Illness The patient is a 66 year old male who presents to the Emergency Room with complaints of persistent shortness of breath that began earlier today. The patient's family states that he does not wear any oxygen at home. He denies having any pain right now or hematochezia. He had a Fentanyl patch prior to arrival. HPI is limited due to patient being confused. Source of History: patient Onset: earlier today Position: other (global) Quality: other (shortness of breath) Timing: other (persistent) Associated Symptoms: No hematochezia Review of Systems See HPI for pertinent positives & negatives. A total of 10 systems reviewed and were otherwise negative. 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 (3) Atrial fibrillation (4) Atrial flutter (5) Benign hypertension (6) Carcinoma of prostate (7) Cellulitis of groin (8) Chronic congestive heart failure (9) Defibrillator discharge (10) Gastroesophageal reflux disease (11) History of - pulmonary embolus (12) Hyperlipidemia (13) Hypoxemia (14) Migraine (15) Sepsis due to pneumonia (16) uti Family History FHx: ischemic heart disease Social History Smoking Status: Unknown if Ever Smoked Alcohol Use: occasionally Drug Use: none Housing Status: halfway Occupation Status: disabled Current/Historical Medications Scheduled Acetaminophen (Tylenol), 1,000 MG PO BID Allopurinol (Zyloprim), 100 MG PO QAM Amiodarone Hcl (Cordarone), 200 MG PO BID Aspirin (Aspirin Ec), 81 MG PO QAM Atorvastatin (Lipitor), 80 MG PO QAM Carvedilol (Carvedilol), 9.375 MG PO BID Ceftriaxone Sod (Rocephin), 2 GM IV QD Fentanyl (Fentanyl), 50 MCG TD [id number] Fluticasone Prop/Salmeterol (Advair Diskus 500/50 60 Dose), 1 PUFFS INH BID Furosemide (Lasix), 60 TAB PO DAILY Gabapentin (Neurontin), 200 MG PO QAM Gabapentin (Neurontin), 600 MG PO HS Ipratropium-Albuterol (Combivent Respimat), 1 PUFFS INH Q6H Isosorbide Mononitrate Ext Rel (Imdur Ext Rel), 60 MG PO QAM Losartan Potassium (Cozaar), 25 MG PO QAM Potassium Chloride (Micro-K Ext Rel), 10 MEQ PO TID Ranitidine Hcl (Zantac), 150 MG PO BID Rivaroxaban (Xarelto), 20 MG PO HS Sertraline (Zoloft), 200 MG PO QAM Sodium Phosphate/Biphosphate (Fleet Enema), 1 EA WA DAILY Topiramate (Topamax), 100 MG PO BID Vancomycin HCl in Sodium Chlor (VANCOMYCIN in NSS), 1,750 MG IV Q30 HOURS Scheduled PRN Acetaminophen Tab (Tylenol), 650 MG PO Q6H PRN for Pain Albuterol Sulfate (Proair Respiclick), 2 PUFFS INH Q6 PRN for SOB/Wheezing Aluminum/Magnesium/Simeth (Maalox Max Susp), 30 ML PO Q6 PRN for DYSPEPSIA Artificial Tear Solution (Artificial Tears), 2 DROPS OP QID PRN for DRY EYES Bisacodyl (Dulcolax), 1 SUPP WA UD PRN for Constipation Guaifenesin (Robitussin), 10 ML PO Q6H PRN for Cough Ipratropium-Albuterol (Duoneb), 1 TREATMENT INH Q6H PRN for SOB/Wheezing Magnesium Hydroxide (Milk Of Magnesia), 30 ML PO for Constipation Oxycodone HCl (Oxycodone HCl), 20 MG PO Q4H PRN for UD Polyvinyl Alcohol (Artificial Tears), 2 DROPS OPB QID PRN for DRYNESS White Petrolatum-Mineral Oil (Genteal Tears Night-Time), 1 DOSE OPB DAILY PRN for DRYNESS Miscellaneous Medications Prune Juice (Prune Juice ), 8 OZ PO Allergies Coded Allergies: Neomycin (Verified Allergy, Intermediate, RED, SORE, 05/15/17) Bacitracin (Verified Allergy, Unknown, unknown, 05/15/17) Kiwi (Verified Allergy, Unknown, itchy, 05/15/17) Polymyxin B (Verified Allergy, Unknown, unknown, 05/15/17) Morphine (Verified Adverse Reaction, Intermediate, HALLUCINATION, CONFUSION,AGITATION, 05/15/17) Physical Exam Vital Signs Date Time Temp Pulse Resp B/P (MAP) Pulse Ox O2 Delivery O2 Flow Rate FiO2 05/15/17 13:49 75 05/15/17 13:31 76 22 119/80 94 5.0 05/15/17 13:06 134/93 05/15/17 12:31 141/89 05/15/17 12:30 73 24 92 05/15/17 12:01 129/86 05/15/17 12:00 72 28 05/15/17 11:33 127/90 05/15/17 11:30 75 16 90 05/15/17 11:18 131/81 05/15/17 11:15 95 Nasal Cannula 5.0 05/15/17 11:15 75 05/15/17 11:05 94 Nasal Cannula 5.0 05/15/17 11:05 36.4 73 18 127/90 93 Room Air Physical Exam Vital signs reviewed. General: Well-appearing male, in no significant distress. HEENT: No scleral icterus, PERRLA, neck supple. Atraumatic. Cardiovascular: Regular rate and rhythm, no extra sounds. Pulmonary: Clear to auscultation bilaterally, normal work of breathing. Abdomen: Soft, nontender, nondistended, positive bowel sounds. Musculoskeletal: Atraumatic, no peripheral edema. Neurologic: Patient awake alert and oriented x 3 Rectal exam: Normal external rectal mucosa, guaiac negative brown stool. Skin: Large left buttock pressure wound with VAC dressing. Warm, dry, no rash Medical Decision & Procedures ER Provider Diagnostic Interpretation: Radiology results as stated below per my review and radiologist interpretation: CHEST ONE VIEW PORTABLE CLINICAL HISTORY: 66 years-old Male presenting with SOB. TECHNIQUE: Portable upright AP view of the chest was obtained. COMPARISON: 05/10/2017. FINDINGS: Right upper hemipelvis terminates in the lower SVC. Left subclavian implanted cardiac defibrillator with single lead to the right ventricular apex. Median sternotomy wires unchanged. Atherosclerosis of the aortic arch. Cardiac silhouette top normal in size. Pulmonary vascular prominence. Significant interval increase in patchy bilateral lung opacities greater on the right in the mid and lower lung but also evident centrally in the left lung. Trace left pleural effusion. No pneumothorax. Osteopenia may be present. Surgical clips noted in the right axilla. IMPRESSION: 1. Significant interval increase in patchy bilateral pulmonary opacities, which could represent pulmonary edema, multifocal pneumonia, or diffuse alveolar damage. Pulmonary vascular congestion and borderline cardiomegaly favor pulmonary edema. 2. Trace left pleural effusion. Electronically signed by: Tariq Kunz M.D. 05/15/2017 12:26 PM Dictated Date/Time: 05/15/2017 12:24 PM HEAD WITHOUT CONTRAST (CT) CLINICAL HISTORY: 66 years-old Male presenting with AMS. TECHNIQUE: Multidetector CT imaging of the head was performed without the use of intravenous contrast. IV contrast: None. A dose lowering technique was used consistent with the principles of ALARA (as low as reasonably achievable). COMPARISON: 07/24/2016. CT DOSE (mGy.cm): The estimated cumulative dose is 601.98 mGy.cm. FINDINGS: Subassembly Supervisor topogram: Unremarkable. Proportional ventricular and sulcal prominence, likely age-related parenchymal volume loss. Periventricular and subcortical white matter hypoattenuation, nonspecific but likely indicative of chronic small vessel ischemic change. No mass effect or midline shift. No hemorrhage or acute territorial infarct. No extra-axial fluid collection. Paranasal sinuses and mastoid air cells clear. Calvarium intact. Sclerotic lesion in the right frontal bone possibly bone island. IMPRESSION: 1. Chronic small vessel ischemic change. No acute intracranial abnormality. Electronically signed by: Tariq Kunz M.D. 05/15/2017 1:04 PM Dictated Date/Time: 05/15/2017 1:02 PM Laboratory Results 05/15/17 12:36 Red Blood Count 3.14, Mean Corpuscular Volume 98.7, Mean Corpuscular Hemoglobin 30.6, Mean Corpuscular Hemoglobin Concent 31.0, Mean Platelet Volume 9.9, Neutrophils (%) (Auto) 86.0, Lymphocytes (%) (Auto) 8.0, Monocytes (%) (Auto) 5.4, Eosinophils (%) (Auto) 0.2, Basophils (%) (Auto) 0.1, Neutrophils # (Auto) 10.54, Lymphocytes # (Auto) 0.98, Monocytes # (Auto) 0.66, Eosinophils # (Auto) 0.03, Basophils # (Auto) 0.01 05/15/17 12:36 Test 05/15/17 12:30 05/15/17 12:36 05/15/17 12:41 Influenza Type A Antigen Neg for Influ A (NEG) Influenza Type B Antigen Neg for Influ B (NEG) White Blood Count 12.26 K/uL (4.8-10.8) Red Blood Count 3.14 M/uL (4.7-6.1) Hemoglobin 9.6 g/dL (14.0-18.0) Hematocrit 31.0 % (42-52) Mean Corpuscular Volume 98.7 fL (80-100) Mean Corpuscular Hemoglobin 30.6 pg (25-34) Mean Corpuscular Hemoglobin Concent 31.0 g/dl (32-36) Platelet Count 302 K/uL (130-400) Mean Platelet Volume 9.9 fL (7.4-10.4) Neutrophils (%) (Auto) 86.0 % Lymphocytes (%) (Auto) 8.0 % Monocytes (%) (Auto) 5.4 % Eosinophils (%) (Auto) 0.2 % Basophils (%) (Auto) 0.1 % Neutrophils # (Auto) 10.54 K/uL (1.4-6.5) Lymphocytes # (Auto) 0.98 K/uL (1.2-3.4) Monocytes # (Auto) 0.66 K/uL (0.11-0.59) Eosinophils # (Auto) 0.03 K/uL (0-0.5) Basophils # (Auto) 0.01 K/uL (0-0.2) RDW Standard Deviation 55.2 fL (36.4-46.3) RDW Coefficient of Variation 15.3 % (11.5-14.5) Immature Granulocyte % (Auto) 0.3 % Immature Granulocyte # (Auto) 0.04 K/uL (0.00-0.02) Anion Gap 6.0 mmol/L (3-11) Est Creatinine Clear Calc Drug Dose 96.2 ml/min Estimated GFR () 94.9 Estimated GFR (Non- 81.9 BUN/Creatinine Ratio 19.0 (10-20) Calcium Level 8.4 mg/dl (8.5-10.1) Total Bilirubin 0.8 mg/dl (0.2-1) Direct Bilirubin 0.5 mg/dl (0-0.2) Aspartate Amino Transf (AST/SGOT) 99 U/L (15-37) Alanine Aminotransferase (ALT/SGPT) 44 U/L (12-78) Alkaline Phosphatase 114 U/L (45-117) Ammonia 18.0 umol/L (11-32) Total Creatine Kinase 33 U/L (39-308) Creatine Kinase MB 2.2 ng/ml (0.5-3.6) Creatine Kinase MB Ratio 6.7 (0-3.0) Total Protein 7.3 gm/dl (6.4-8.2) Albumin 2.1 gm/dl (3.4-5.0) Bedside Troponin I 0.080 ng/ml (0-0.045) Laboratory results per my review. Medications Administered Medications (Trade) Dose Ordered Sig/Emily Route Start Time Stop Time Status Last Admin Dose Admin Albuterol/ Ipratropium (Duoneb) 3 ml NOW STAT INH 05/15/17 13:22 05/15/17 13:26 DC 05/15/17 13:44 3 ML ECG Indication: SOB/dyspnea Rate (beats per minute): 509 Rhythm: sinus rhythm Findings: 1st degree AV block, left axis deviation, other (Previous inferior and anterior lateral infarct, non-specific interventricular conduction delay, repolarization abnormality in anterior leads, QTC 509) Change: Patients electrocardiogram as interpreted by me. ED Course 1204: Past medical records reviewed. The patient was evaluated in room C8. A complete history and physical examination was performed. 1320: I reevaluated the patient, who states he would like a breathing treatment. 1322: Ordered Duoneb 3ml INH. 1328: Ordered Lasix Inj 40mg IV. 1331: Dr. Gustavo Larkin [facility] was notified of the patient's case. He will evaluate the patient for further management. Medical Decision Differential diagnosis: Etiologies such as infections, reactive airway disease, pneumonia, pneumothorax , COPD, CHF, cardiac ischemia, pulmonary embolism, musculoskeletal, gastrointestinal, as well as others were entertained. This patient was evaluated and appeared to be in no significant distress. Patient does seem initially mildly confused. He denies any home oxygen although there was some communication issues with EMS and the nursing facility. Review the patient's records, he has a significant cardiac history with severe CAD and cardiomyopathy. Patient was recently hospitalized after several shocks from his ICD. He did have a non-STEMI. Patient has no chest pain at this time. Chest x-ray confirms a congestive etiology. He was given 40 mg of IV Lasix. Patient remains afebrile with a 5 L/m oxygen via nasal cannula. Patient's troponin is slightly elevated at 0.08 however is markedly elevated several weeks ago during his hospitalization. The patient has a paced rhythm. Patient will be evaluated by the hospitalist service for further management. He is aware of the plan and agrees. Medication Reconcilliation Current Medication List: was personally reviewed by me Blood Pressure Screening Patient's blood pressure: Normal blood pressure Blood pressure disposition: Did not require urgent referral Consults Time Called: 1331 Consulting Physician: Dr. Gustavo Larkin Returned Call: 1331 Dr. Gustavo Larkin, [facility] was notified of the patient's case. He will evaluate the patient for further management. Impression Primary Impression: Congestive heart failure Scribe Attestation The scribe's documentation has been prepared under my direction and personally reviewed by me in its entirety. I confirm that the note above accurately reflects all work, treatment, procedures, and medical decision making performed by me. Departure Information Dispostion Being Evaluated By Hospitalist Referrals [place] (PCP) Forms HOME CARE DOCUMENTATION FORM, IMPORTANT VISIT INFORMATION Patient Instructions My [facility]
--- NOTE | 2017-05-15 12:27 | DIAGNOSTIC IMAGING REPORT ---
CHEST ONE VIEW PORTABLE CLINICAL HISTORY: 66 years-old Male presenting with SOB. TECHNIQUE: Portable upright AP view of the chest was obtained. COMPARISON: 05/10/2017. FINDINGS: Right upper hemipelvis terminates in the lower SVC. Left subclavian implanted cardiac defibrillator with single lead to the right ventricular apex. Median sternotomy wires unchanged. Atherosclerosis of the aortic arch. Cardiac silhouette top normal in size. Pulmonary vascular prominence. Significant interval increase in patchy bilateral lung opacities greater on the right in the mid and lower lung but also evident centrally in the left lung. Trace left pleural effusion. No pneumothorax. Osteopenia may be present. Surgical clips noted in the right axilla. IMPRESSION: 1. Significant interval increase in patchy bilateral pulmonary opacities, which could represent pulmonary edema, multifocal pneumonia, or diffuse alveolar damage. Pulmonary vascular congestion and borderline cardiomegaly favor pulmonary edema. 2. Trace left pleural effusion. Electronically signed by: Tariq Kunz M.D. 05/15/2017 12:26 PM Dictated Date/Time: 05/15/2017 12:24 PM
[2017-05-15 12:49] LABS: BASO % 0.1 %; BASO ABS # 0.01 K/uL (0-0.2); EOS % 0.2 %; EOS ABS # 0.03 K/uL (0-0.5); HEMOGLOBIN 9.6 g/dL (14.0-18.0); IG# 0.04 K/uL (0.00-0.02); LYMPH ABS # 0.98 K/uL (1.2-3.4); MEAN CELL VOLUME 98.7 fL (80-100); MEAN CORPUSCULAR HEMOGLOBIN 30.6 pg (25-34); MEAN PLATELET VOLUME 9.9 fL (7.4-10.4); MONO % 5.4 %; MONO ABS # 0.66 K/uL (0.11-0.59); NEUT ABS # 10.54 K/uL (1.4-6.5); PLATELET COUNT 302 K/uL (130-400); RED CELL DISTRIBUTION WIDTH CV 15.3 % (11.5-14.5); RED CELL DISTRIBUTION WIDTH SD 55.2 fL (36.4-46.3); WHITE BLOOD COUNT 12.26 K/uL (4.8-10.8)
--- NOTE | 2017-05-15 13:05 | DIAGNOSTIC IMAGING REPORT ---
HEAD WITHOUT CONTRAST (CT) CLINICAL HISTORY: 66 years-old Male presenting with AMS. TECHNIQUE: Multidetector CT imaging of the head was performed without the use of intravenous contrast. IV contrast: None. A dose lowering technique was used consistent with the principles of ALARA (as low as reasonably achievable). COMPARISON: 07/24/2016. CT DOSE (mGy.cm): The estimated cumulative dose is 601.98 mGy.cm. FINDINGS: Planning Coordinator topogram: Unremarkable. Proportional ventricular and sulcal prominence, likely age-related parenchymal volume loss. Periventricular and subcortical white matter hypoattenuation, nonspecific but likely indicative of chronic small vessel ischemic change. No mass effect or midline shift. No hemorrhage or acute territorial infarct. No extra-axial fluid collection. Paranasal sinuses and mastoid air cells clear. Calvarium intact. Sclerotic lesion in the right frontal bone possibly bone island. IMPRESSION: 1. Chronic small vessel ischemic change. No acute intracranial abnormality. Electronically signed by: Tariq Kunz M.D. 05/15/2017 1:04 PM Dictated Date/Time: 05/15/2017 1:02 PM
[2017-05-15] MEDS ORDERED: AMIO200T4 PO (13:06)
[2017-05-15 13:09] LABS: ALBUMIN 2.1 gm/dl (3.4-5.0); CALCIUM 8.4 mg/dl (8.5-10.1); CREATININE 0.95 mg/dl (0.60-1.40); POTASSIUM 3.1 mmol/L (3.5-5.1)
[2017-05-15] MEDS ORDERED: FURO-85 PO (13:13)
[2017-05-15 13:14] LABS: CKMB 2.2 ng/ml (0.5-3.6); TOTAL PROTEIN 7.3 gm/dl (6.4-8.2)
[2017-05-15] MEDS ORDERED: IPRASOL4 INH (13:17)
[2017-05-15] MEDS ORDERED: POTA10CA28 PO (13:22)
[2017-05-15] MEDS ORDERED: ALBUT/IPRATROP 3MG/0.5MG NEB 3 ML VIAL INH STA (13:22)
[2017-05-15] MEDS ORDERED: FUROSEMIDE 40 MG/4 ML VIAL IV STA (13:28)
[2017-05-15 13:41] LABS: INFLUENZA B ANTIGEN Neg for Influ B (NEG)
[2017-05-15] MEDS ORDERED: VANCOMYCIN HCL IV SCH (15:30)
[2017-05-15] MEDS ORDERED: ARTIFICIAL TEARS OP SOLN OP PRN (15:30)
[2017-05-15] MEDS ORDERED: BISACODYL 10 MG SUPP PR PRN (15:30)
[2017-05-15] MEDS ORDERED: OXYCODONE HCL IR 5 MG TAB (IMMEDIATE RELEASE) PO PRN (15:30)
[2017-05-15] MEDS ORDERED: GUAIFENESIN SUGAR FREE 100 MG/5 ML UDC PO PRN (15:30)
[2017-05-15] MEDS ORDERED: SODIUM CHLORIDE IV SCH (15:30)
--- NOTE | 2017-05-15 15:43 | History and Physical ---
History & Physical Date & Time of Service: May 15, 2017 at 15:20 Chief Complaint: Sob/Confused Primary Care Physician: Clarita Solorzano History of Present Illness Source: patient, family, hospital records 66 y/o M Hx CAD, chronic systolic CHF - EF 25-30%, sustained VT- AICD, COPD, gout, chronic AF, HTN, factor V Leiden mutation W/PEs, Renetta's syndrome, PAD - L BKA - R iliac stent, chronic troponin elevation, recurrent UTIs, GERD, anxiety , anemia. Recently admissions for MRSA and proteus groin abscess in additionally for defib firing. The pt underwent cardiac catheterization which confirmed severe multivessel CAD. This is being medically managed although high-risk intervention has not been ruled out. Pt presents with SOB and AMS. He pt was recently placed on a Fentanyl patch and has become increasingly confused per family. He has exhibited labored breathing since AM. The HPI/ROS is limited as he is unable to provide additional information or properly voice complaints at present. There have been no reports of fevers or a productive cough. Inial exam and imaging are most consistent with pulmonary edema as the cause of his SOB. Etiology for AMS may be related to Fentanyl but is less clear. Past Medical/Surgical History 1) HTN 2) HPL 3) COPD 4) CHF - EF 25% 5) MRSA groin cellulitis/abscess 6) Gout 7) Anemia - baseline Hb 9-10 8) Factor V Leiden mutation - Histroy of PEs 9) Sustained VT - AICD 10) Recurrent UTIs 11) Chronic troponin elevation 12) CAD - cath 04/22 -Severe CAD involving the distal LM CA, [place] RCA, ostial PDA. -Occluded mid GALDAMEZ. -Patent SVG to PDA with 30% mid SVG narrowing. Family History FHx: ischemic heart disease Social History Smoking Status: Unknown if Ever Smoked Drug Use: none Housing status: lives with family Occupational Status: disabled Immunizations History of Influenza Vaccine: Yes Influenza Vaccine Date: Apr 16, 2012 History of Tetanus Vaccine?: No History of Pneumococcal: Yes Pneumococcal Date: Feb 03, 2007 History of Hepatitis B Vaccine: No Multi-Drug Resistant Organisms History of MDRO: Yes Type of MDRO: MRSA Allergies Coded Allergies: Neomycin (Verified Allergy, Intermediate, RED, SORE, 05/15/17) Bacitracin (Verified Allergy, Unknown, unknown, 05/15/17) Kiwi (Verified Allergy, Unknown, itchy, 05/15/17) Polymyxin B (Verified Allergy, Unknown, unknown, 05/15/17) Morphine (Verified Adverse Reaction, Intermediate, HALLUCINATION, CONFUSION,AGITATION, 05/15/17) Home Medications Scheduled Acetaminophen (Tylenol), 1,000 MG PO BID Allopurinol (Zyloprim), 100 MG PO QAM Amiodarone Hcl (Cordarone), 200 MG PO BID Aspirin (Aspirin Ec), 81 MG PO QAM Atorvastatin (Lipitor), 80 MG PO QAM Carvedilol (Carvedilol), 9.375 MG PO BID Ceftriaxone Sod (Rocephin), 2 GM IV QD Fentanyl (Fentanyl), 50 MCG TD [id number] Fluticasone Prop/Salmeterol (Advair Diskus 500/50 60 Dose), 1 PUFFS INH BID Furosemide (Lasix), 60 TAB PO DAILY Gabapentin (Neurontin), 200 MG PO QAM Gabapentin (Neurontin), 600 MG PO HS Ipratropium-Albuterol (Combivent Respimat), 1 PUFFS INH Q6H Isosorbide Mononitrate Ext Rel (Imdur Ext Rel), 60 MG PO QAM Losartan Potassium (Cozaar), 25 MG PO QAM Potassium Chloride (Micro-K Ext Rel), 10 MEQ PO TID Ranitidine Hcl (Zantac), 150 MG PO BID Rivaroxaban (Xarelto), 20 MG PO HS Sertraline (Zoloft), 200 MG PO QAM Sodium Phosphate/Biphosphate (Fleet Enema), 1 EA PA DAILY Topiramate (Topamax), 100 MG PO BID Vancomycin HCl in Sodium Chlor (VANCOMYCIN in NSS), 1,750 MG IV Q30 HOURS Scheduled PRN Acetaminophen Tab (Tylenol), 650 MG PO Q6H PRN for Pain Albuterol Sulfate (Proair Respiclick), 2 PUFFS INH Q6 PRN for SOB/Wheezing Aluminum/Magnesium/Simeth (Maalox Max Susp), 30 ML PO Q6 PRN for DYSPEPSIA Artificial Tear Solution (Artificial Tears), 2 DROPS OP QID PRN for DRY EYES Bisacodyl (Dulcolax), 1 SUPP PA UD PRN for Constipation Guaifenesin (Robitussin), 10 ML PO Q6H PRN for Cough Ipratropium-Albuterol (Duoneb), 1 TREATMENT INH Q6H PRN for SOB/Wheezing Magnesium Hydroxide (Milk Of Magnesia), 30 ML PO for Constipation Oxycodone HCl (Oxycodone HCl), 20 MG PO Q4H PRN for UD Polyvinyl Alcohol (Artificial Tears), 2 DROPS OPB QID PRN for DRYNESS White Petrolatum-Mineral Oil (Genteal Tears Night-Time), 1 DOSE OPB DAILY PRN for DRYNESS Miscellaneous Medications Prune Juice (Prune Juice ), 8 OZ PO Review of Systems Cannot provide reliable ROS - he does confirm SOB Physical Exam Vital Signs Date Time Temp Pulse Resp B/P (MAP) Pulse Ox O2 Delivery O2 Flow Rate FiO2 05/15/17 13:49 75 05/15/17 13:31 76 22 119/80 94 5.0 05/15/17 13:06 134/93 05/15/17 12:31 141/89 05/15/17 12:30 73 24 92 05/15/17 12:01 129/86 05/15/17 12:00 72 28 05/15/17 11:33 127/90 05/15/17 11:30 75 16 90 05/15/17 11:18 131/81 05/15/17 11:15 95 Nasal Cannula 5.0 05/15/17 11:15 75 05/15/17 11:05 94 Nasal Cannula 5.0 05/15/17 11:05 36.4 73 18 127/90 93 Room Air General Appearance: + pertinent finding (Restless. elderly male - labored breathing - no overt distress) Head: normocephalic Eyes: normal inspection ENT: normal ENT inspection, pharynx normal Neck: supple, + JVD Respiratory/Chest: chest non-tender, + pertinent finding (Poor B/L air movement - BL crackles) Cardiovascular: regular rate, rhythm, + systolic murmur Abdomen/GI: normal bowel sounds, non tender, soft Genitourinary - Male: + pertinent finding (Groin wound noted) Neurologic/Psych: + disoriented, + pertinent finding (No focal deficits present - difficulty complying with exam) Skin: normal color, + pertinent finding (Groin wound present ) Diagnostics Laboratory Results Results Past 24 Hours Test 05/15/17 12:30 05/15/17 12:36 05/15/17 12:41 Range/Units Influenza Type A Antigen Neg for Influ A NEG Influenza Type B Antigen Neg for Influ B NEG White Blood Count 12.26 4.8-10.8 K/uL Red Blood Count 3.14 4.7-6.1 M/uL Hemoglobin 9.6 14.0-18.0 g/dL Hematocrit 31.0 42-52 % Mean Corpuscular Volume 98.7 80-100 fL Mean Corpuscular Hemoglobin 30.6 25-34 pg Mean Corpuscular Hemoglobin Concent 31.0 32-36 g/dl Platelet Count 302 130-400 K/uL Mean Platelet Volume 9.9 7.4-10.4 fL Neutrophils (%) (Auto) 86.0 % Lymphocytes (%) (Auto) 8.0 % Monocytes (%) (Auto) 5.4 % Eosinophils (%) (Auto) 0.2 % Basophils (%) (Auto) 0.1 % Neutrophils # (Auto) 10.54 1.4-6.5 K/uL Lymphocytes # (Auto) 0.98 1.2-3.4 K/uL Monocytes # (Auto) 0.66 0.11-0.59 K/uL Eosinophils # (Auto) 0.03 0-0.5 K/uL Basophils # (Auto) 0.01 0-0.2 K/uL RDW Standard Deviation 55.2 36.4-46.3 fL RDW Coefficient of Variation 15.3 11.5-14.5 % Immature Granulocyte % (Auto) 0.3 % Immature Granulocyte # (Auto) 0.04 0.00-0.02 K/uL Sodium Level 139 136-145 mmol/L Potassium Level 3.1 3.5-5.1 mmol/L Chloride Level 106 98-107 mmol/L Carbon Dioxide Level 27 21-32 mmol/L Anion Gap 6.0 3-11 mmol/L Blood Urea Nitrogen 18 7-18 mg/dl Creatinine 0.95 0.60-1.40 mg/dl Est Creatinine Clear Calc Drug Dose 96.2 ml/min Estimated GFR () 94.9 Estimated GFR (Non- 81.9 BUN/Creatinine Ratio 19.0 10-20 Random Glucose 125 70-99 mg/dl Calcium Level 8.4 8.5-10.1 mg/dl Total Bilirubin 0.8 0.2-1 mg/dl Direct Bilirubin 0.5 0-0.2 mg/dl Aspartate Amino Transf (AST/SGOT) 99 15-37 U/L Alanine Aminotransferase (ALT/SGPT) 44 12-78 U/L Alkaline Phosphatase 114 45-117 U/L Ammonia 18.0 11-32 umol/L Total Creatine Kinase 33 39-308 U/L Creatine Kinase MB 2.2 0.5-3.6 ng/ml Creatine Kinase MB Ratio 6.7 0-3.0 Total Protein 7.3 6.4-8.2 gm/dl Albumin 2.1 3.4-5.0 gm/dl Bedside Troponin I 0.080 0-0.045 ng/ml Diagnostic Radiology CXR: 1. Significant interval increase in patchy bilateral pulmonary opacities, which could represent pulmonary edema, multifocal pneumonia, or diffuse alveolar damage. Pulmonary vascular congestion and borderline cardiomegaly favor pulmonary edema. 2. Trace left pleural effusion. EKG Sinus, 1st degree AV - IV conduction delay - no significant morphological change Impression Assessment and Plan 66 y/o M Hx CAD, chronic systolic CHF - EF 25-30%, sustained VT- AICD, COPD, gout, chronic AF, HTN, factor V Leiden mutation W/PEs, Renetta's syndrome, PAD - L BKA - R iliac stent, chronic troponin elevation, recurrent UTIs, GERD, anxiety , anemia. Recently admissions for MRSA and proteus groin abscess in additionally for defib firing. The pt underwent cardiac catheterization which confirmed severe multivessel CAD. This is being medically managed although high-risk intervention has not been ruled out. Pt presents with SOB and AMS. He pt was recently placed on a Fentanyl patch and has become increasingly confused per family. He has exhibited labored breathing since AM. The HPI/ROS is limited as he is unable to provide additional information or properly voice complaints at present. There have been no reports of fevers or a productive cough. Inial exam and imaging are most consistent with pulmonary edema as the cause of his SOB. Etiology for AMS may be related to Fentanyl but is less clear. 1) SOB - likely volume overload - additional Lasix provided - daily weights, I/O , 02 protocol - required BIPAP in ER - NTG applied 2) AMS - pt remains confused - possibly due to Fentanyl - will hold as he has additional PRN Narcotics available - hypoxia may also contribute - an ABG is pending - there is no current evidence of systemic infection - he is receiving antibiotics for recent groin cellulitis. 3) COPD - placed on Duonebbs and PRN albuterol with prescribed inhalers - no current wheezing to support exacerbation - would consider steroids if he does not improve with diuresis - a CT chest is pending 4) CAD - no evidence of ACS - remains on ASA, B russ, statin, NTG - trop is chronically elevated and down from a previous admission - we will repeat at a 6 hr interval to r/o acute event as cause of CHF exacerbation. 5) Groin wound - will consult wound care - continue current Vanc and Cef 6) Sustained VT - recent defib discharge - appears stable on Amio 7) AF - currently sinus - cont B russ, Amio - cont Xarelto 8) Anemia - Hb is at baseline presently 9) Pt had diarrhea while in the ER - considering antibiotic use, we will check for Cdiff - there is concern for contamination of his groin wound which should be sealed off as possible Full code - Xarelto prophylaxis Total time for this admit including review of extensive records, labs, meds, imaging, EKG - discussion with pt, ER attending - discussed with ICU for possible transfer - 45 min Level of Care Telemetry Resuscitation Status FULL RESUSCITATION VTE Prophylaxis Given or contraindicated: Other Anticoagulation
[2017-05-15] MEDS ORDERED: MAGNESIUM HYDROXIDE SUSP 30 ML UDC PO PRN (15:45)
[2017-05-15] MEDS ORDERED: ACETAMINOPHEN 325 MG TAB PO PRN (15:45)
[2017-05-15] MEDS ORDERED: NITROGLYCERIN 0.4 MG SL PER TAB CHARGE SL PRN (15:45)
[2017-05-15] MEDS ORDERED: NITROGLYCERIN 2% OINTMENT 30GM TUBE EXT ONE (15:45)
[2017-05-15] MEDS ORDERED: ALUMINUM/MAGNESIUM/SIMETH (MAALOX MAX) 30 ML UDC PO PRN (15:45)
[2017-05-15] MEDS ORDERED: POLYETHYLENE (MIRALAX) 17 GM PACK PO PRN (15:45)
[2017-05-15] MEDS ORDERED: MoRPHine SULFATE 2 MG/ML CARP IV PRN (15:45)
[2017-05-15] MEDS ORDERED: ALBUTEROL 0.083% NEBU SOLN 3 ML VIAL INH PRN (16:00)
[2017-05-15 16:39] VITALS: PULSE 75; O2SAT 96
--- NOTE | 2017-05-15 19:21 | DIAGNOSTIC IMAGING REPORT ---
(CHEST) THORAX WITHOUT CLINICAL HISTORY: 66 years-old Male presenting with occult infection, shortness of breath. TECHNIQUE: Multidetector CT imaging of the chest was performed without the use of intravenous contrast. IV contrast: None. A dose lowering technique was used consistent with the principles of ALARA (as low as reasonably achievable). COMPARISON: 01/13/2017. CT DOSE (mGy.cm): The estimated cumulative dose is 1191.73 mGy.cm. 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 Median sternotomy wires noted. Right upper extremity PICC terminates in the SVC. On soft tissue windows, normal thyroid and thoracic inlet. Few prominent prevascular lymph nodes measuring up to 10 mm in the short axis. Additional enlarged lymph nodes in the subcarinal region. Suspected right hilar lymphadenopathy though the eduardo are poorly assessed in the absence of intravenous contrast. Atherosclerosis of the aorta. Multichamber enlargement of the heart. Coronary artery calcification. Small right and trace left pleural effusions. Fluid noted within the left major fissure. No pericardial effusion. Upper abdomen normal. On lung windows, extensive groundglass and solid consolidation throughout the right upper lobe, right middle lobe, and right lower lobe. Patchy consolidation in the left upper lobe and left lower lobe. Central airways patent. Mild bronchial wall thickening suggested. Paraseptal emphysematous changes noted at the apices. On bone windows, degenerative changes of the spine. Multiple old left rib fractures evident. IMPRESSION: 1. Findings consistent with multifocal pneumonia involving all 5 lobes but most severe throughout the right lung. Bilateral parapneumonic effusions. 2. Mediastinal and suspected right hilar lymphadenopathy. The eduardo are suboptimally assessed in the absence of intravenous contrast. Enlarged left knee on a reactive basis. 3. Cardiomegaly. Electronically signed by: Tariq Kunz M.D. 05/15/2017 7:20 PM Dictated Date/Time: 05/15/2017 7:15 PM
[2017-05-15 19:25] VITALS: BP 123/86; PULSE 85; TEMP 36.7; O2SAT 95; Ht 180.3 cm; Wt 97.8 kg
[2017-05-15] MEDS: ALBUT/IPRATROP 3MG/0.5MG NEB 3 ML VIAL INH SCH (19:38)
[2017-05-15 19:39] VITALS: PULSE 85; O2SAT 95
[2017-05-15 19:40] VITALS: PULSE 85; O2SAT 95
[2017-05-15] MEDS ORDERED: MAGNESIUM SULFATE 1GM / D5W 1 GM in PREMIXED IN D5W 100 ML IV SCH (20:00)
[2017-05-15] MEDS ORDERED: POTASSIUM CHLORIDE PWD 20 MEQ PACK PO STA (20:00)
[2017-05-15] MEDS: FLUTICASONE/SALMETEROL (ADVAIR) 500/50 INH 14 PUFF INH SCH (20:54)
[2017-05-15] MEDS: FUROSEMIDE INJ 40 MG in SYRINGE 0 ML IV SCH (20:55)
[2017-05-15] MEDS: CARVEDILOL 3.125 MG TAB PO SCH (20:56)
[2017-05-15] MEDS: TOPIRAMATE 100 MG TAB PO SCH (20:56)
[2017-05-15] MEDS: RANITIDINE HCL 150 MG TAB PO SCH (20:58)
[2017-05-15] MEDS: AMIODARONE 200 MG TAB PO SCH (20:58)
[2017-05-15] MEDS: POTASSIUM CHLORIDE 10 MEQ TABCR PO SCH (20:59)
[2017-05-15] MEDS ORDERED: GABAPENTIN 600 MG TAB PO SCH (21:00)
[2017-05-15] MEDS ORDERED: RIVAROXABAN 10 MG TAB PO SCH (21:00)
[2017-05-15] MEDS ORDERED: POTASSIUM CHLR 20 MEQ / WTR 20 MEQ in PREMIXED WATER 100 ML IV SCH (21:00)
[2017-05-15] MEDS ORDERED: VANCOMYCIN CONSULT ACTIVE PRN (21:30)
[2017-05-15 21:38] VITALS: PULSE 75; O2SAT 98
[2017-05-15] MEDS ORDERED: CEFTRIAXONE SOD INJ 2000 MG in DEXTROSE 5% 50ML IV SCH (22:00)
[2017-05-15 23:30] VITALS: BP 125/77; PULSE 64; TEMP 36.4; O2SAT 99
[2017-05-16] VITALS (7 sets, daily range): BP systolic 107–126; BP diastolic 58–82; PULSE 62–71; TEMP 36–36.4; O2SAT 96–99
[2017-05-16] MEDS: ALBUT/IPRATROP 3MG/0.5MG NEB 3 ML VIAL INH SCH ×2 (01:52→07:10)
[2017-05-16] MEDS ORDERED: VANCOMYCIN INJ 1,750 MG in SODIUM CHLORIDE 0.9% 500ML 500 ML IV SCH (02:30)
[2017-05-16 06:50] LABS: HEMOGLOBIN 10.1 g/dL (14.0-18.0); MEAN CELL VOLUME 97.9 fL (80-100); MEAN CORPUSCULAR HEMOGLOBIN 30.9 pg (25-34); MEAN CORPUSCULAR HGB CONC 31.6 g/dl (32-36); MEAN PLATELET VOLUME 10.7 fL (7.4-10.4); PLATELET COUNT 324 K/uL (130-400); RED CELL DISTRIBUTION WIDTH CV 15.2 % (11.5-14.5); RED CELL DISTRIBUTION WIDTH SD 54.1 fL (36.4-46.3)
[2017-05-16 07:30] LABS: CREATININE 1.02 mg/dl (0.60-1.40)
[2017-05-16 07:31] LABS: CALCIUM 8.5 mg/dl (8.5-10.1)
[2017-05-16] MEDS: ALLOPURINOL 100 MG TAB PO SCH ×2 (07:37→09:00)
[2017-05-16] MEDS: FLUTICASONE/SALMETEROL (ADVAIR) 500/50 INH 14 PUFF INH SCH ×2 (07:38→09:00)
[2017-05-16] MEDS: POTASSIUM CHLORIDE 10 MEQ TABCR PO SCH ×2 (07:38→09:00)
[2017-05-16] MEDS: ASPIRIN 81 MG ECTAB PO SCH ×2 (07:38→09:00)
[2017-05-16] MEDS: RANITIDINE HCL 150 MG TAB PO SCH ×2 (07:38→09:00)
[2017-05-16] MEDS: GABAPENTIN 100 MG CAP PO SCH ×2 (07:39→09:55)
[2017-05-16] MEDS: CARVEDILOL 3.125 MG TAB PO SCH ×2 (07:41→09:00)
[2017-05-16] MEDS: SERTRALINE HCL 100 MG TAB PO SCH ×2 (07:41→09:00)
[2017-05-16] MEDS: LOSARTAN POTASSIUM 25 MG TAB PO SCH ×2 (07:42→09:00)
[2017-05-16] MEDS: AMIODARONE 200 MG TAB PO SCH ×2 (07:43→09:00)
[2017-05-16] MEDS: TOPIRAMATE 100 MG TAB PO SCH ×2 (07:43→09:00)
[2017-05-16] MEDS: ATORVASTATIN 40 MG TAB PO SCH ×2 (07:44→09:00)
[2017-05-16] MEDS: ISOSORBIDE MONONITRATE 60 MG TABCR PO SCH ×2 (07:51→09:00)
[2017-05-16] MEDS ORDERED: CEFTRIAXONE SOD 1 GM VIAL IV SCH (08:00)
[2017-05-16 08:29] LABS: POTASSIUM 3.7 mmol/L (3.5-5.1)
[2017-05-16] MEDS ORDERED: FUROSEMIDE 40 MG TAB PO SCH (09:00)
[2017-05-16] MEDS: FUROSEMIDE INJ 40 MG in SYRINGE 0 ML IV SCH (09:00)
--- NOTE | 2017-05-16 09:46 | Pharmacy Progress Note ---
Pharmacy Abx Dose Short Note Date of Service May 16, 2017. Assessment & Plan Item Value Date Time Creatinine 1.02 mg/dl 05/16/17556 Est Creatinine Clear Calc Drug Dose 82.6 ml/min 05/16/17556 Random Vancomycin Level 18.4 mcg/ml 05/16/17 0037 Assessment 66 year old male receiving VANC/Rocephin for treatment of pulmonary/MRSA groin cellulitis--needing assisted Abx tx. * In-pt Day # 2 of antimicrobial therapy (on this therapy at [facility]). Pertinent PMH: NH resident, h/o MDRO, L BKA, PAD, COPD, recurrent UTIs Plan Vancomycin * Trough level of 18.4 mcg/mL is therapeutic. * MAINTENANCE DOSE: Continue VANC 1750mg (18mg/kg) IV every 24 hours * Goal trough level: ~15 mcg/mL * Will recheck Vanc trough in a couple days if renal fnx remains stable. Pharmacy will continue to follow and will adjust dose/frequency as necessary. Thank you.
--- NOTE | 2017-05-16 10:58 | Progress Note ---
Progress Note Date of Service May 16, 2017. Progress Note time - 1045am Code Blue Note: I went to see the patient on rounds at approximately 10am today. Upon arrival he was confused, agitated, and stated "I can't breath" (despite BIPAP in place). I sat the head of his bed up to assist his breathing. Within 30 seconds the patient developed apnea. On pulse check there was no palpable pulse. I called a code blue, put the bed flat, and started chest compressions. Nursing staff started [id number] ventilation. Patient placed on bedside monitor and initial rhythm was a wide-complex tachycardia. Epi 1mg x 1 was given and preparations were made for defibrillation. Defibrillation was then given at 200J without success in restoring NSR. Over the next 15-20 minutes he received numerous doses of epinephrine, multiple shocks, amiodarone 300mg x 1 followed by 150mg of amiodarone later on, 2 doses of bicarbonate, and ongoing compressions in ACLS fashion. It also appeared that his AICD was continuing to fire intermittently throughout the code. He never had successful islam of spontaneous circulation despite the above. Predominant rhythm was either v-tach or v-fib. The code was called after about 20 minutes. Family notified of his code and came to bedside. The code was attended by the ICU attending and several other physicians who assisted in the code. Critical care time 30 minutes. Porter Batista MD
[2017-05-16 12:06] LABS: INFLUENZA A PCR Neg for Influ A (NEG); INFLUENZA B PCR Neg for Influ B (NEG)
--- NOTE | 2017-05-16 15:46 | Death Pronouncement Note ---
Pronouncement Note Date & Time of May 16, 2017. 1030 Pronouncement At time of pronouncement the patients pupils were fixed and dilated, there was no spontaneous respiratory effort, no palpable pulse, no audible heart tones, and no response to pain or voice. See separate code blue note as well. Family notified; I met with them at bedside and offered condolences. certificate completed. Porter Batista MD
--- NOTE | 2017-05-16 17:04 | Death Summary ---
Summary of Admission Date May 15, 2017 at 15:42 Date & Time of May 16, 2017. 1030 Cause of ventricular fibrillation cardiac arrest Secondary Diagnoses Other acute problems - 1. acute hypoxic respiratory failure 2nd to bilateral pneumonia + acute/ chronic systolic CHF 2. metabolic encephalopathy Chronic medical problems - 1. multi-vessel CAD 2. chronic systolic CHF - EF 25-30% 3. recurrent VT s/p AICD 4. COPD 5. atrial fibrillation 6. gout 7. HTN 8. factor V Leiden mutation with prior PEs 9. h/o Renetta's syndrome 10. PAD - L BKA - R iliac stent 11. chronic troponin elevation 12. recurrent UTIs 13. GERD 14. anxiety 15. recent MRSA and proteus groin abscesses Hospital Course HISTORY OF PRESENT ILLNESS: 66 y/o M Hx CAD, chronic systolic CHF - EF 25-30%, sustained VT- AICD, COPD, gout, chronic AF, HTN, factor V Leiden mutation W/PEs, Renetta's syndrome, PAD - L BKA - R iliac stent, chronic troponin elevation, recurrent UTIs, GERD, anxiety , anemia. Recently admissions for MRSA and proteus groin abscess in additionally for defibrillator firing. The pt underwent cardiac catheterization 18 which confirmed severe multivessel CAD. This is being medically managed although high-risk intervention has not been ruled out. Pt presents with SOB and AMS. He pt was recently placed on a Fentanyl patch and has become increasingly confused per family. He has exhibited labored breathing since AM. The HPI/ROS is limited as he is unable to provide additional information or properly voice complaints at present. There have been no reports of fevers or a productive cough. Inial exam and imaging are most consistent with pulmonary edema as the cause of his SOB. Etiology for AMS may be related to Fentanyl but is less clear. HOSPITAL COURSE: The patient underwent CT chest on hospital day #1 demonstrating severe bilateral airspace opacities concerning for multifocal pneumonia and/or CHF. He was placed on IV antibiotics along with BIPAP due to his respiratory distress /failure. He also received IV diuretics. On the morning of hospital day #2, at approximately 1000am, the patient became unresponsive, apneic, and pulseless. A code blue was called and ACLS was initiated. Initial rhythm showed suspected ventricular tachycardia and later on he had ventricular fibrillation. He received numerous shocks for the v-tach/v-fib, multiple doses of epinephrine , bicarbonate, vasopressin, and amiodarone (total 350mg) all without success in restoring spontaneous circulation. The code was ultimately called with time of 1030am. It was suspected that the patient had a coronary ischemic event in the setting of his respiratory failure leading to his ventricular fibrillation/tachycardia cardiac arrest. Porter Batista MD Copy To [place], [place]
--- NOTE | 2017-05-18 23:32 | EMERGENCY ROOM VISIT NOTE ---
ED Visit Note First contact with patient: 11:39 I responded to a CODE BLUE. Patient was apneic without pulses. The code was being run by Dr. Mc at the bedside. An airway was requested. Endotracheal Intubation Indication: Cardiac arrest The patient was on 100% oxygen via NRB prior to the procedure. Suction, airway equipment, RSI drugs, respiratory equipment, and appropriate personnel were prepared prior to the initiation of the procedure. A time out was taken. After observing the clinical benefit of the medications, the airway was easily visualized utilizing a 4.0 MAC. A 8.0 size ETT tube was placed atraumatically to 24 cm using standard technique. The cuff inflated without signs of malfunction. There were bilateral breath sounds, positive colormetric change. Post intubation sedation and paralysis was not needed. The tube was inadvertently dislodged shortly after placement during chest compressions. The tube was replaced with the same technique without difficulty. Placement was again confirmed.
== END 2017-05-16 15:00 | disposition expired | DRG 291 ==
LOC: EDBD 10:59 → C.EDC 11:00 → C.2T 15:42 → EDBEDREQ 15:51 → ENRESERV 17:39
PROVIDERS: ADMIT Internal Medicine; ATTEND Internal Medicine
DX: I11.0 Hypertensive heart disease with heart failure (principal); I50.23 Acute on chronic systolic (congestive) heart failure; J18.9 Pneumonia, unspecified organism; I48.92 Unspecified atrial flutter; D68.51 Activated protein C resistance; J44.0 Chronic obstructive pulmonary disease with (acute) lower respiratory infection; J96.01 Acute respiratory failure with hypoxia; I49.01 Ventricular fibrillation; I46.2 Cardiac arrest due to underlying cardiac condition; G93.41 Metabolic encephalopathy; I25.9 Chronic ischemic heart disease, unspecified; F41.9 Anxiety disorder, unspecified; G90.2 Horner's syndrome; I70.208 Unspecified atherosclerosis of native arteries of extremities, other extremity; Z85.46 Personal history of malignant neoplasm of prostate; K21.9 Gastro-esophageal reflux disease without esophagitis; Z86.711 Personal history of pulmonary embolism; E78.5 Hyperlipidemia, unspecified; Z79.82 Long term (current) use of aspirin; Z88.8 Allergy status to other drugs, medicaments and biological substances; I25.10 Atherosclerotic heart disease of native coronary artery without angina pectoris; Z95.810 Presence of automatic (implantable) cardiac defibrillator; J44.9 Chronic obstructive pulmonary disease, unspecified; M1A.9XX0 Chronic gout, unspecified, without tophus (tophi); Z89.512 Acquired absence of left leg below knee; Z86.14 Personal history of Methicillin resistant Staphylococcus aureus infection

== ENCOUNTER → 2017-05-15 | Outpatient (CLI) | payer OTHER ==
[~2017-05-15] MED LIST changes: +ACET-1693 PO; -ACET325T96 PO; +FURO-85 PO; +IPRASOL4 INH
[2017-05-15 06:51] LABS: BLOOD UREA NITROGEN 15 mg/dl (7-18); CALCIUM 8.5 mg/dl (8.5-10.1); CARBON DIOXIDE 27 mmol/L (21-32); CREATININE 0.87 mg/dl (0.60-1.40); GLUCOSE 103 mg/dl (70-99); SODIUM 141 mmol/L (136-145)
== END ==
LOC: C.LABCC 12:47 → EDSTATUS 13:02
PROVIDERS: ATTEND Internal Medicine
DX: Z79.01 Long term (current) use of anticoagulants (principal)